=== PATIENT | male | born 1935 | race Caucasian/White ===

== ENCOUNTER 2016-02-28 08:14 | Observation (INO) | payer MEDICARE ==
[2016-02-28] MEDS ORDERED: ASPIRIN 81 MG CHEW PO STA (09:01)
[2016-02-28 09:35] LABS: Basophils # (A) 0.1 k/uL (0-0.2); Basophils % (A) 2 %; CH 31.5; CHCM 34.1; Eosinophils # (A) 0.4 k/uL (0-0.7); Eosinophils % (A) 7 %; HCT 47.7 % (39.0-53.0); HDW 2.46; HGB 15.4 gm/dL (13.0-17.5); Luc % (Auto) 2; Lymphocytes # (A) 0.8 k/uL (1.0-4.8); Lymphocytes % (A) 17 %; MCH 29.9 pg (25.0-35.0); MCHC 32.3 g/dL (31.0-37.0); MCV 92.7 fL (80.0-100.0); Monocytes # (A) 0.3 k/uL (0-1.0); Monocytes % (A) 7 %; Neutrophils # (A) 3.3 k/uL (1.3-7.7); Neutrophils % (A) 66 %; RBC 5.14 m/uL (4.30-5.90); RDW 13.6 % (11.5-15.5); WBC (Perox) 5.22
--- NOTE | 2016-02-28 09:44 | ED ---
Chest Pain HPI - General Chief Complaint: Recheck/Abnormal Lab/Rx Stated Complaint: defib firing Time Seen by Provider: 02/28/16 08:36 Source: patient, RN notes reviewed Mode of arrival: wheelchair Limitations: no limitations - History of Present Illness Initial Comments: This patient is an 80-year-old man who presents with the complaint that his defibrillator has gone off twice this morning. The patient states that he was taking a shower proximally 745 this morning when he felt a shock. The patient initially thought that this may have been related to short circuit in the house but then shortly thereafter he experienced a second shock and was able to localize this to his chest. The patient states that he was not having any other symptoms at the time. He came directly here. He states that he is feeling at his normal self now. MD Complaint: other -: hour(s) Onset: other (showering) Pain Location: left chest Pain Radiation: none Quality: other (Shock) Consistency: now resolved Improves With: nothing Worsens With: nothing Treatments Prior to Arrival: defibrillation - Related Data Home Medications Medication Instructions Recorded Confirmed Nitroglycerin Sl Tabs [Nitrostat] 0.4 mg SUBLINGUAL Q5M PRN 02/12/14 02/28/16 Clopidogrel [Plavix] 75 mg PO QAM 03/29/14 02/28/16 Acetaminophen Tab [Tylenol Tab] 325 mg PO Q4H PRN 02/28/16 02/28/16 Aspirin 81 mg PO DAILY 02/28/16 02/28/16 Captopril [Capoten] 25 mg PO AC-BID 02/28/16 02/28/16 Metoprolol Tartrate [Lopressor] 25 mg PO BID 02/28/16 02/28/16 Vardenafil HCl [Levitra] 20 mg PO DAILY PRN 02/28/16 02/28/16 Previous Rx's Medication Instructions Recorded Atorvastatin [Lipitor] 80 mg PO HS #30 tab 11/20/13 Omeprazole [PriLOSEC] 20 mg PO AC-BRKFST #30 capsule. 11/20/13 Allergies Allergy/AdvReac Type Severity Reaction Status Date / Time amlodipine besylate Allergy Rash/Hives Verified 02/28/16 09:11 [From Norvasc] isosorbide [From Imdur] Allergy Unknown Verified 02/28/16 09:25 Latex, Natural Rubber Allergy Rash/Hives Verified 02/28/16 09:11 Review of Systems ROS Statement: Those systems with pertinent positive or pertinent negative responses have been documented in the HPI. ROS Other: All systems not noted in ROS Statement are negative. Constitutional: Denies: fever, chills, weakness Eyes: Denies: vision change Respiratory: Denies: cough, dyspnea Cardiovascular: Reports: as per HPI. Denies: palpitations, dyspnea on exertion , orthopnea, edema, syncope Gastrointestinal: Reports: constipation. Denies: abdominal pain, vomiting, diarrhea, melena, hematochezia Genitourinary: Denies: dysuria, hematuria Musculoskeletal: Denies: back pain Skin: Denies: rash Neurological: Denies: headache, weakness, numbness EKG Findings - EKG Results: EKG: interpreted by SANTY, sinus rhythm (Rate approximate 67 bpm), normal axis - Blocks, Blue [place], Hypertrophy, ST Abn: Chamber hypertrophy or enlargement: only voltage criteria for left ventricular hypertrophy Repolarization changes or abnormalities: ST or T wave suggestive of ischemia (2 inversions in leads V2 V6 suggestive of possible anterolateral ischemia) - VT, Pacemaker, Normal: Myocardial infarction: septal VT (old age or indeterminate) Past Medical History Past Medical History: GI Bleed, Hyperlipidemia, Myocardial Infarction ([place]), Osteoarthritis (OA), Prostate Disorder, Thyroid Disorder Additional Past Medical History / Comment(s): DENGENERATIVE ARTHRITIS, MACULAR DEGENERATION AND CATARACTS,GI BLEED 2011,CARPAL TUNNEL SYNDROME, SEE DR. BOOGIE H&P Last Myocardial Infarction Date:: 1993 History of Any Multi-Drug Resistant Organisms: None Reported Past Surgical History: Adenoidectomy, Appendectomy, Heart Catheterization, Heart Catheterization With Stent, Joint Replacement, Orthopedic Surgery Additional Past Surgical History / Comment(s): TOTAL LT/RT KNEE ARTHROPLASTY, CATARACTS, PARTIAL THYROIDECTOMY,RT KNEE REPLACEMENT Past Anesthesia/Blood Transfusion Reactions: No Reported Reaction Additional Past Anesthesia/Blood Transfusion Reaction / Comment(s): wakes up during surgery Date of Last Stent Placement:: 1998 Type of Cardiac Device: AICD Device Placement Date:: 2013 Past Psychological History: No Psychological Hx Reported Smoking Status: Former smoker Past Alcohol Use History: None Reported Additional Past Alcohol Use History / Comment(s): QUIT 39 YEARS AGO SMOKED 1PPD X20 YEARS Past Drug Use History: None Reported - Past Family History Father Additional Family Medical History / Comment(s): CAROTID ARTERY BLOCKAGE.SX IN 1988 Mother Additional Family Medical History / Comment(s): AT AGE 89- UNK HX Daughter(s) Family Medical History: Cancer BROTHER Family Medical History: Cancer Additional Family Medical History / Comment(s): BONE, PANCREATIC General Exam Limitations: no limitations General appearance: alert, in no apparent distress Head exam: Present: atraumatic, normocephalic Eye exam: Present: normal appearance. Absent: scleral icterus, conjunctival injection Neck exam: Present: normal inspection Respiratory exam: Present: normal lung sounds bilaterally. Absent: respiratory distress, wheezes, rales, rhonchi, stridor Cardiovascular Exam: Present: regular rate, normal rhythm, normal heart sounds. Absent: systolic murmur, diastolic murmur, rubs, gallop GI/Abdominal exam: Present: soft. Absent: distended, tenderness, guarding, rebound, mass Extremities exam: Present: normal inspection, normal capillary refill. Absent: pedal edema, calf tenderness Back exam: Present: normal inspection. Absent: CVA tenderness (R), CVA tenderness (L) Neurological exam: Present: alert, oriented X3 Skin exam: Present: warm, dry, intact, normal color. Absent: rash, cyanosis, diaphoretic, petechiae, pallor, mottled Course Vital Signs 02/28/16 02/28/16 02/28/16 08:17 09:30 10:28 Temperature 97.3 F L 96.7 F L Pulse Rate 76 58 L 60 Respiratory 20 16 16 Rate Blood Pressure 168/77 163/84 O2 Sat by Pulse 96 98 98 Oximetry Disposition Clinical Impression: Defibrillator discharge Disposition: ADMITTED IP TO THIS HOSP Condition: Fair
--- NOTE | 2016-02-28 09:47 | XR ---
EXAMINATION TYPE: XR chest 1V portable DATE OF EXAM: 02/28/2016 9:32 AM COMPARISON: Prior chest x-ray third of August 2014 HISTORY: Chest pain TECHNIQUE: Single frontal view of the chest is obtained. FINDINGS: The heart is enlarged. Intracardiac defibrillator is stable. No pneumothorax or pleural ef fusion. Lung volumes are low. Patchy basilar density is present. Central vascularity and interstitium mildly prominent. IMPRESSION: Expiratory technique. Difficult to exclude pulmonary venous hypertension and interstitial edema, follow-up as indicated. Stable cardiomegaly.
[2016-02-28 09:51] LABS: ALT 35 U/L (21-72); AST 20 U/L (17-59); Alkaline Phosphatase 106 U/L (38-126); Anion Gap 8 mmol/L; Blood Urea Nitrogen 15 mg/dL (9-20); Calcium 9.6 mg/dL (8.4-10.2); Carbon Dioxide 27 mmol/L (22-30); Chloride 104 mmol/L (98-107); Glucose 107 mg/dL (74-99); Magnesium 1.8 mg/dL (1.6-2.3); Non-African American GFR(MDRD) >60 (>60 ml/min/1.73 sqM); Potassium 4.8 mmol/L (3.5-5.1); Sodium 139 mmol/L (137-145); Total Bilirubin 0.9 mg/dL (0.2-1.3); Total Protein 6.4 g/dL (6.3-8.2)
[2016-02-28 10:12] LABS: Creatine Kinase MB 2.2 ng/mL (0.0-2.4)
[2016-02-28 10:13] LABS: Troponin I 0.094 ng/mL (0.000-0.034)
[2016-02-28 10:32] LABS: INR 1.1 (<1.1); Partial Thromboplastin Time 24.8 sec (22.0-30.0); Prothrombin Time 11.3 sec (9.0-12.0)
[2016-02-28] MEDS ORDERED: HEPARIN SODIUM,PORCINE 5,000 UNIT/ML 1 ML VIAL IV ONE (11:36)
[2016-02-28] MEDS ORDERED: NITROGLYCERIN SL TABS 0.4 MG TAB SUBLINGUAL PRN ×3 (11:36→14:32)
[2016-02-28] MEDS ORDERED: HEPARIN SODIUM,PORCINE/D5W PMX 25,000 UNIT in DEXTROSE/WATER 1 500ML.BAG IV SCH (11:45)
[2016-02-28] MEDS: SODIUM CHLORIDE 0.9% 1,000 ML IV SCH ×2 (13:53→21:34)
[2016-02-28] MEDS ORDERED: ACETAMINOPHEN TAB 325 MG TAB PO PRN (14:32)
--- NOTE | 2016-02-28 14:32 | P.HPIM ---
History of Present Illness H&P Date: 02/28/16 Chief Complaint: ICD discharged twice This is an 80-year-old male one of Dr. Mixon with a previous medical history significant for CAD post the cardiac arrest with ischemic cardiomyopathy post AICD implantation, left heart catheterization with PCI back in 2013, chronic systolic heart failure, peptic ulcer disease, hyperlipidemia, hypothyroidism, osteoarthritis, patient was taken a shower today when all of a sudden he felt a bit dizzy and subsequently his ICD fired first time and it did fire again the second time, patient ended up coming to the emergency department for evaluation, patient ICD was interrogated and it was indeed 2 shocks for V. fib/V. tach the first one failed however the second one did take him out of the rhythm and I believe his ICD parameter was were adjusted from 25 J to 35 J . Patient is laying down in bed in no apparent distress he denies any chest pain, shortness breath, he has no abdominal pain, nausea, vomiting, diarrhea, he feels otherwise good. Review of Systems Constitutional: Denies anorexia, Denies chills, Denies lethargy, Denies malaise , Denies weakness Eyes: bilateral blurred vision, bilateral decreased vision, denies bulging eye Ears: bilateral: decreased hearing Ears, nose, mouth and throat: Denies dysphagia, Denies neck lump, Denies swelling in throat, Denies sore throat Cardiovascular: Reports dyspnea on exertion, Reports high blood pressure, Reports shortness of breath, Denies chest pain, Denies decreased exercise tolerance, Denies paroxysmal nocturnal dyspnea, Denies phlebitis, Denies rapid heart beat, Denies syncope Respiratory: Denies congestion, Denies cough, Denies cough with sputum, Denies home oxygen, Denies respiratory infections, Denies sleep apnea, Denies snoring, Denies wheezing Gastrointestinal: Denies abdominal pain, Denies belching, Denies bloating, Denies change in bowel habits, Denies excessive gas, Denies heartburn, Denies melena, Denies nausea, Denies vomiting Genitourinary: Denies dysuria, Denies nocturia, Denies polyuria Musculoskeletal: Denies myalgias Musculoskeletal: absent: ankle pain, ankle stiffness, ankle swelling, elbow pain , elbow stiffness, elbow swelling, foot pain, foot stiffness, foot swelling, hand pain, hand stiffness, hand swelling, hip pain, hip stiffness, hip swelling , knee pain, knee stiffness, knee swelling, shoulder pain, shoulder stiffness, shoulder swelling, wrist pain, wrist stiffness, wrist swelling Integumentary: Denies pruritus, Denies rash Neurological: Denies numbness, Denies weakness Psychiatric: Denies anxiety, Denies depression Endocrine: Denies fatigue, Denies weight change Past Medical History Past Medical History: Coronary Artery Disease (CAD), Heart Failure, Eye Disorder (Adult onset macular degeneration.), GERD/Reflux, GI Bleed (Secondary to peptic ulcer disease.), Hyperlipidemia, Hypertension, Myocardial Infarction ( [place]), Osteoarthritis (OA), Prostate Disorder, Thyroid Disorder Additional Past Medical History / Comment(s): cardiomyopathy, DENGENERATIVE ARTHRITIS, MACULAR DEGENERATION AND CATARACTS,GI BLEED 2011, Last Myocardial Infarction Date:: 1993 History of Any Multi-Drug Resistant Organisms: None Reported Past Surgical History: Adenoidectomy, AICD, Appendectomy, Heart Catheterization , Heart Catheterization With Stent, Joint Replacement, Orthopedic Surgery, Tonsillectomy Additional Past Surgical History / Comment(s): AICD, DFT 04/02/14, TOTAL LT/RT KNEE ARTHROPLASTY, bilateral CATARACTS, bilateral carpal tunnel releases, PARTIAL THYROIDECTOMY due to nodules, trigger fingers. Past Anesthesia/Blood Transfusion Reactions: No Reported Reaction Additional Past Anesthesia/Blood Transfusion Reaction / Comment(s): wakes up during surgery Date of Last Stent Placement:: 1993 Type of Cardiac Device: AICD Device Placement Date:: 2013 Past Psychological History: No Psychological Hx Reported Additional Psychological History / Comment(s): Pt has a grand daughter who resides with him. He uses no assistive device. He no longer drives, grand daughter takes him places. Smoking Status: Former smoker Past Alcohol Use History: None Reported Additional Past Alcohol Use History / Comment(s): QUIT 39 YEARS AGO SMOKED 1PPD X20 YEARS Past Drug Use History: None Reported - Past Family History Father Family Medical History: Cancer, Coronary Artery Disease (CAD), CVA/TIA (Father at age of 86 from CVA, diabetes mellitus type 2, colon cancer and CAD.), Diabetes Mellitus Additional Family Medical History / Comment(s): CAROTID ARTERY BLOCKAGE.SX IN 1988 Mother Family Medical History: Unable to Obtain (Mother at age of 90 from old age. ) Additional Family Medical History / Comment(s): AT AGE 89- UNK HX Daughter(s) Family Medical History: Cancer (Patient has 2 adopted daughters and he has been under a lot of stress with his adopted daughter whom her left taking her cars with him.) BROTHER Family Medical History: Cancer (Patient had a brother who from pancreatic and bone cancer.) Additional Family Medical History / Comment(s): BONE, PANCREATIC Son(s) Family Medical History: No Reported History (Patient has a son no major medical problems.) Medications and Allergies Home Medications Medication Instructions Recorded Confirmed Type Nitroglycerin Sl Tabs [Nitrostat] 0.4 mg SUBLINGUAL Q5M PRN 02/12/14 02/28/16 History Clopidogrel [Plavix] 75 mg PO QAM 03/29/14 02/28/16 History Acetaminophen Tab [Tylenol Tab] 325 mg PO Q4H PRN 02/28/16 02/28/16 History Aspirin 81 mg PO DAILY 02/28/16 02/28/16 History Captopril [Capoten] 25 mg PO AC-BID 02/28/16 02/28/16 History Metoprolol Tartrate [Lopressor] 25 mg PO BID 02/28/16 02/28/16 History Vardenafil HCl [Levitra] 20 mg PO DAILY PRN 02/28/16 02/28/16 History Allergies Allergy/AdvReac Type Severity Reaction Status Date / Time amlodipine besylate Allergy Rash/Hives Verified 02/28/16 09:11 [From Norvasc] isosorbide [From Imdur] Allergy Unknown Verified 02/28/16 09:25 Latex, Natural Rubber Allergy Rash/Hives Verified 02/28/16 09:11 Physical Exam Vitals: Vital Signs Temp Pulse Pulse Resp BP BP Pulse Ox 02/28/16 12:18 97.0 F L 80 16 142/78 98 02/28/16 12:17 97.9 F 02/28/16 11:42 66 16 141/78 97 - Constitutional General appearance: average body habitus, no acute distress - EENT Eyes: anicteric sclerae, PERRLA, no ptosis, no scleral icterus, normal appearance ENT: hard of hearing, normal oropharynx, no thrush Ears: bilateral: normal - Neck Neck: no lymphadenopathy, normal ROM, no rigidity, no stridor, no thyromegaly Carotids: bilateral: upstroke delayed Thyroid: bilateral: normal size (Patient had a partial thyroidectomy.) - Respiratory Respiratory: bilateral: diminished, negative: dullness, rales, rhonchi, wheezing , prolonged expiration - Cardiovascular Rhythm: regular Heart sounds: normal: S1, S2 Abnormal Heart Sounds: systolic murmur, no S3 Gallop, no S4 Gallop - Gastrointestinal General gastrointestinal: normal bowel sounds, soft, no splenomegaly, no tenderness, no umbilical hernia, no ventral hernia - Genitourinary Male genitourinary: enlarged prostate - Integumentary Integumentary: normal, normal turgor - Neurologic Neurologic: CNII-XII intact - Musculoskeletal Musculoskeletal: gait normal, strength equal bilaterally - Psychiatric Psychiatric: A&O x's 3, appropriate affect, intact judgment & insight Results CBC & Chem 7: 02/28/16 09:25 02/28/16 09:25 Thrombosis Risk Factor Assmnt - DVT/VTE Prophylaxis DVT/VTE Prophylaxis: Pharmacologic Prophylaxis ordered, Mechanical Prophylaxis ordered - Choose All That Apply Any of the Below Risk Factors Present?: Yes Each Factor Represents 1 point: Obesity (BMI >25) Other Risk Factors: Yes Each Risk Factor Represents 3 Points: Age 75 years or older Other congenital or acquired thrombophilia - If yes, enter type in comment: No Thrombosis Risk Factor Assessment Total Risk Factor Score: 4 Thrombosis Risk Factor Assessment Level: Moderate Risk Assessment and Plan Plan: Assessment and plan: 1. V. fib/V. tach post discharges twice the first shock failed so he had another shock, subsequent AICD was interrogated and adjusted from 25 to 35 J. Continue patient in a telemetry unit monitor for the next 24 hours. 2. CAD post [place] with cardiac arrest status post PCI back in 2013. Continue metoprolol 25 mg orally twice every day, Capoten 25 mg orally twice every day, aspirin 81 mg orally once every day, Plavix 75 mg orally once every day. 3. Hyperlipidemia. Continue patient on low-cholesterol diet. 4. Hypertension. Continue metoprolol 25 mg orally twice every day, Capoten 25 minute gram orally twice every day. 5. Post partial thyroidectomy. 6. AMD. Stable at this point in time. 7. History of PUD. Continue Protonix 40 mg orally once every day. 8. Osteoarthritis. Stable. 9. Ischemic cardiomyopathy. Stable at this time. 10. DVT prophylaxis. Lovenox 40 mg subcutaneously every 24 hours. 11. GI prophylaxis. Protonix 40 mg orally once every day. 12. Admit to inpatient. 13. Estimate length of stay 2 midnights.
[2016-02-28] MEDS ORDERED: DEXTROSE 5% IN WATER 100 ML with AMIODARONE 150 MG IV ONE (16:09)
[2016-02-28] MEDS ORDERED: Magnesium Replacement Protocol 1 EACH MISC MISCELLANE PRN (16:10)
--- NOTE | 2016-02-28 16:11 | P.CRDCN ---
History of Present Illness Consult date: 02/28/16 Reason for Consult (text): ICD Discharge Chief complaint: Shock from ICD x2 History of present illness: This is a pleasant 80-year-old gentleman who follows regularly with Dr. Kearns in the office. Has a known history of GI bleed, hyperlipidemia, [place], thyroid disorder, ischemic cardiomyopathy post-AICD placement, chronic systolic heart failure, and CAD with prior cardiac arrest and heart catheterization with DCI in 2013. Patient presented to the emergency department today after while taking a shower receiving multiple shocks from his ICD. Initially the patient felt this may have been an electrical issue but after receiving the second shock realized it was from his ICD. ICD was interrogated and showed appropriate shock for fast V. tach at 25 J that was unsuccessful and again at 35 J. Interrogation also showed patient had 22 episodes of nonsustained VT since last interrogation in September 2015. Chest x-ray done on admission was difficult to exclude pulmonary venous hypertension and interstitial edema and recommends follow-up. EKG showed sinus rhythm with nonspecific ST-T wave abnormalities. His most recent echocardiogram done in August 2015 showed an ejection fraction of 35% with diminished left ventricular diastolic compliance. Lexiscan Cardiolite from August 2015 showed no evidence of stress-induced ischemia. Upon examination, patient is resting comfortably in bed. He denies complaint of chest discomfort, shortness of breath, palpitations, nausea or vomiting, dizziness, lightheadedness, syncope or edema. He said up until this morning, he has been feeling "great". He has however been under quite a bit of stress as he has his grandchildren and great-grandchildren living with him and is causing some issues with his usual routine. Past Medical History Past Medical History: Coronary Artery Disease (CAD), Heart Failure, Eye Disorder (Adult onset macular degeneration.), GERD/Reflux, GI Bleed (Secondary to peptic ulcer disease.), Hyperlipidemia, Hypertension, Myocardial Infarction ( [place]), Osteoarthritis (OA), Prostate Disorder, Thyroid Disorder Additional Past Medical History / Comment(s): cardiomyopathy, DENGENERATIVE ARTHRITIS, MACULAR DEGENERATION AND CATARACTS,GI BLEED 2011, Last Myocardial Infarction Date:: 1993 History of Any Multi-Drug Resistant Organisms: None Reported Past Surgical History: Adenoidectomy, AICD, Appendectomy, Heart Catheterization , Heart Catheterization With Stent, Joint Replacement, Orthopedic Surgery, Tonsillectomy Additional Past Surgical History / Comment(s): AICD, DFT 04/02/14, TOTAL LT/RT KNEE ARTHROPLASTY, bilateral CATARACTS, bilateral carpal tunnel releases, PARTIAL THYROIDECTOMY due to nodules, trigger fingers. Past Anesthesia/Blood Transfusion Reactions: No Reported Reaction Additional Past Anesthesia/Blood Transfusion Reaction / Comment(s): wakes up during surgery Date of Last Stent Placement:: 1993 Type of Cardiac Device: AICD Device Placement Date:: 2013 Past Psychological History: No Psychological Hx Reported Additional Psychological History / Comment(s): Pt has a grand daughter who resides with him. He uses no assistive device. He no longer drives, grand daughter takes him places. Smoking Status: Former smoker Past Alcohol Use History: None Reported Additional Past Alcohol Use History / Comment(s): QUIT 39 YEARS AGO SMOKED 1PPD X20 YEARS Past Drug Use History: None Reported - Past Family History Son(s) Family Medical History: No Reported History (Patient has a son no major medical problems.) Father Family Medical History: Cancer, Coronary Artery Disease (CAD), CVA/TIA (Father at age of 86 from CVA, diabetes mellitus type 2, colon cancer and CAD.), Diabetes Mellitus Additional Family Medical History / Comment(s): CAROTID ARTERY BLOCKAGE.SX IN 1988 Mother Family Medical History: Unable to Obtain (Mother at age of 90 from old age. ) Additional Family Medical History / Comment(s): AT AGE 89- UNK HX Daughter(s) Family Medical History: Cancer (Patient has 2 adopted daughters and he has been under a lot of stress with his adopted daughter whom her left taking her cars with him.) BROTHER Family Medical History: Cancer (Patient had a brother who from pancreatic and bone cancer.) Additional Family Medical History / Comment(s): BONE, PANCREATIC Medications and Allergies Home Medications Medication Instructions Recorded Confirmed Type Nitroglycerin Sl Tabs [Nitrostat] 0.4 mg SUBLINGUAL Q5M PRN 02/12/14 02/28/16 History Clopidogrel [Plavix] 75 mg PO QAM 03/29/14 02/28/16 History Acetaminophen Tab [Tylenol Tab] 325 mg PO Q4H PRN 02/28/16 02/28/16 History Aspirin 81 mg PO DAILY 02/28/16 02/28/16 History Captopril [Capoten] 25 mg PO AC-BID 02/28/16 02/28/16 History Metoprolol Tartrate [Lopressor] 25 mg PO BID 02/28/16 02/28/16 History Vardenafil HCl [Levitra] 20 mg PO DAILY PRN 02/28/16 02/28/16 History Allergies Allergy/AdvReac Type Severity Reaction Status Date / Time amlodipine besylate Allergy Rash/Hives Verified 02/28/16 09:11 [From Norvasc] isosorbide [From Imdur] Allergy Unknown Verified 02/28/16 09:25 Latex, Natural Rubber Allergy Rash/Hives Verified 02/28/16 09:11 Physical Exam Vitals: Vital Signs Temp Pulse Pulse Resp BP BP Pulse Ox 02/28/16 12:18 97.0 F L 80 16 142/78 98 02/28/16 12:17 97.9 F 02/28/16 11:42 66 16 141/78 97 PHYSICAL EXAMINATION: HEENT: Head is atraumatic, normocephalic. Pupils equal, round. Neck is supple. There is no elevated jugular venous pressure. HEART EXAMINATION: Heart sounds regular, S1 and S2 systolic ejection murmur heard. CHEST EXAMINATION: Lungs are clear to auscultation and precussion. No chest wall tenderness is noted on palpation or with deep breathing. ABDOMEN: Soft, nontender. Bowel sounds are heard. No organomegaly noted. EXTREMITIES: 1+ peripheral pulses with no evidence of peripheral edema and no calf tenderness noted. NEUROLOGIC patient is awake, alert and oriented x3. . Results 02/28/16 09:25 02/28/16 09:25 Current Medications Generic Name Dose Route Start Last Admin Trade Name Freq PRN Reason Stop Dose Admin Acetaminophen 325 mg 02/28/16 14:32 Tylenol Tab PO Q4H PRN Pain or Fever > 100.5 Aspirin 81 mg 02/29/16 09:00 Aspirin PO DAILY [facility] Atorvastatin Calcium 80 mg 02/28/16 21:00 Lipitor PO HS JONO Captopril 25 mg 02/28/16 17:30 Capoten PO AC-BID JONO Clopidogrel Bisulfate 75 mg 02/29/16 09:00 Plavix PO QAM [facility] Heparin Sodium/Dextrose 25,000 500 mls @ 19.88 mls/hr 02/28/16 11:45 13:53 unit/ IV Solution IV 10.8 units/kg/hr .Q24H JONO 19.88 mls/hr Protocol Administration 10.8 UNITS/KG/HR Sodium Chloride 1,000 mls @ 100 mls/hr 02/28/16 11:45 02/28/16 13:53 Saline 0.9% IV 100 mls/hr .Q10H JONO Administration Metoprolol Tartrate 25 mg 02/28/16 21:00 Lopressor PO BID JONO Nitroglycerin 0.4 mg 02/28/16 14:32 Nitrostat SUBLINGUAL Q5M PRN Chest Pain Pantoprazole Sodium 40 mg 02/29/16 07:30 Protonix PO AC-BRKFST JONO Assessment and Plan Plan: Assessment and plan #1 ischemic cardiomyopathy with AICD in place #2 ventricular tachycardia with appropriate ICD discharge 2 #3 chronic systolic heart failure #4 CAD with PCI in 2013 #5 hypertension #6 hyperlipidemia From cardiology perspective, we'll start the patient on amiodarone drip per protocol with bolus. We will replace magnesium and recheck magnesium and electrolytes in the morning. Further recommendations to follow. 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 Patient was seen and examined.
[2016-02-28 16:15] LABS: Creatine Kinase MB 3.1 ng/mL (0.0-2.4)
[2016-02-28 16:16] LABS: Troponin I 0.379 ng/mL (0.000-0.034)
[2016-02-28] MEDS: AMIODARONE 450 MG in DEXTROSE 5% IN WATER 250 ML IV SCH ×4 (16:54→23:32)
[2016-02-28] MEDS: CAPTOPRIL 25 MG TAB PO SCH (16:58)
[2016-02-28] MEDS ORDERED: CAPTOPRIL 25 MG TAB PO SCH (17:30)
[2016-02-28] MEDS: MAGNESIUM SULFATE-D5W PMX 1 GM in DEXTROSE/WATER 1 100ML.BAG IVPB SCH ×2 (18:39→20:24)
[2016-02-28] MEDS ORDERED: METOPROLOL TARTRATE 25 MG TAB PO SCH (21:00)
[2016-02-28] MEDS ORDERED: ATORVASTATIN 80 MG TAB PO SCH ×2 (21:00)
[2016-02-28] MEDS: METOPROLOL TARTRATE 25 MG TAB PO SCH (21:21)
[2016-02-28 21:23] LABS: Troponin I 0.272 ng/mL (0.000-0.034)
[2016-02-29] MEDS: CAPTOPRIL 25 MG TAB PO SCH (06:35)
[2016-02-29] MEDS: AMIODARONE 450 MG in DEXTROSE 5% IN WATER 250 ML IV SCH ×2 (06:35)
[2016-02-29] MEDS: SODIUM CHLORIDE 0.9% 1,000 ML IV SCH (06:36)
[2016-02-29] MEDS ORDERED: PANTOPRAZOLE 40 MG TABLET PO SCH (07:30)
[2016-02-29] MEDS ORDERED: NON-FORMULARY DRUG (Omeprazole 20 MG) PO SCH (07:30)
[2016-02-29 07:45] LABS: Magnesium 2.2 mg/dL (1.6-2.3)
[2016-02-29] MEDS: METOPROLOL TARTRATE 25 MG TAB PO SCH (08:31)
[2016-02-29 08:49] VITALS: TEMP 97.1
[2016-02-29] MEDS ORDERED: CLOPIDOGREL 75 MG TAB PO SCH ×2 (09:00)
[2016-02-29] MEDS ORDERED: ASPIRIN 325 MG TAB PO SCH (09:00)
[2016-02-29] MEDS ORDERED: ASPIRIN 81 MG CHEW PO SCH ×2 (09:00)
--- NOTE | 2016-02-29 10:22 | P.PN ---
Subjective Principal diagnosis: Sustained VT This is a pleasant 80-year-old gentleman with a past medical history significant for CAD, ischemic cardiomyopathy, status post ICD, hypertension and dyslipidemia was admitted to the hospital after he was receiving ICD shocks. The ICD was checked and showed multiple episodes of sustained VT which was aborted using 35 J. The patient was admitted to the hospital and started on amiodarone IV. Since he has been in the hospital he did not experience any more episodes of VT. He is feeding good and denies having any chest pain or chest discomfort. From the cardiac vascular standpoint overview, the patient can be discharged home. I am going to DC the amiodarone IV and start the patient on amiodarone by mouth. Objective - Vital Signs Vital signs: Vital Signs Temp 97.1 F L 02/29/16 08:00 Pulse 59 L 02/29/16 08:00 Resp 17 02/29/16 08:00 BP 133/72 02/29/16 08:00 Pulse Ox 94 L 02/29/16 08:00 Intake & Output 02/28/16 02/29/16 02/29/16 18:59 06:59 18:59 Intake Total 236 559.482 550.762 Balance 236 559.482 550.762 Weight 91.6 kg Intake: IV 208.82 Amiodarone 450 mg In 69.06 Dextrose 5% in Water 250 ml @ 1 MG/MIN 34.53 mls/ hr IV .Q7H31M JONO Rx#: [id number] Heparin Sodium,Porcine/ 39.76 D5w Pmx 25,000 unit In Dextrose/Water 1 500ml. bag @ 10.8 UNITS/KG/HR 19 .88 mls/hr IV .Q24H JONO Rx#:[id number] Magnesium Sulfate-D5w Pmx 100 1 gm In Dextrose/Water 1 100ml.bag @ 100 mls/hr IVPB Q1H JONO Rx#: [id number] Intake, IV Titration 350.662 370.762 Amount Amiodarone 450 mg In 350.662 Dextrose 5% in Water 250 ml @ 1 MG/MIN 34.53 mls/ hr IV .Q7H31M JONO Rx#: [id number] Heparin Sodium,Porcine/ 370.762 D5w Pmx 25,000 unit In Dextrose/Water 1 500ml. bag @ 10.8 UNITS/KG/HR 19 .88 mls/hr IV .Q24H JONO Rx#:[id number] Oral 236 180 Other: # Voids 1 - Constitutional General appearance: Present: no acute distress - Respiratory Respiratory: bilateral: CTA - Cardiovascular Rhythm: regular Heart sounds: normal: S1, S2 - Labs CBC & Chem 7: 02/28/16 09:25 02/28/16 09:25 Labs: Abnormal Lab Results - Last 24 Hours (Table) 02/28/16 02/28/16 02/28/16 Range/Units 15:16 20:30 20:30 APTT 72.2 H (22.0-30.0) sec CK-MB (CK-2) 3.1 H* 3.0 H* (0.0-2.4) ng/mL Troponin I 0.379 H* 0.272 H* (0.000-0.034) ng/mL 02/29/16 Range/Units 06:19 APTT 67.9 H (22.0-30.0) sec CK-MB (CK-2) (0.0-2.4) ng/mL Troponin I (0.000-0.034) ng/mL Assessment and Plan Plan: Assessment #1 sustained VT #2 severe cardiomyopathy #3 CAD Plan #1 DC amiodarone IV and start amiodarone by mouth at 400 mg by mouth twice a day #2 from the cardiovascular standpoint of view, the patient can be discharged home
[2016-02-29 12:01] VITALS: RESP 18
[2016-02-29 15:12] VITALS: BP 145/83; PULSE 58
[2016-02-29] MEDS ORDERED: AMIODARONE 200 MG TAB PO SCH (21:00)
--- NOTE | 2016-03-23 11:35 | P.DS ---
Providers Date of admission: 02/28/16 11:37 Expected date of discharge: 02/29/16 Attending physician: Oskar Rowland Primary care physician: Kofi Mixon [facility] Hospital Course: This is an 80-year-old male one of Dr. Mixon with a previous medical history significant for CAD post the cardiac arrest with ischemic cardiomyopathy post AICD implantation, left heart catheterization with PCI back in 2013, chronic systolic heart failure, peptic ulcer disease, hyperlipidemia, hypothyroidism, osteoarthritis, patient was taken a shower today when all of a sudden he felt a bit dizzy and subsequently his ICD fired first time and it did fire again the second time, patient ended up coming to the emergency department for evaluation, patient ICD was interrogated and it was indeed 2 shocks for V. fib/V. tach the first one failed however the second one did take him out of the rhythm and I believe his ICD parameter was were adjusted from 25 J to 35 J . Patient is laying down in bed in no apparent distress he denies any chest pain, shortness breath, he has no abdominal pain, nausea, vomiting, diarrhea, he feels otherwise good. Patient was cleared by cardiology for discharge home. Patient was discharged home today in stable condition. Discharge diagnoses: 1. V. fib/V. tach post discharges twice the first shock failed so he had another shock, subsequent AICD was interrogated and adjusted from 25 to 35 J. 2. CAD post LA with cardiac arrest status post PCI back in 2013. 3. Hyperlipidemia. 4. Hypertension. 5. Post partial thyroidectomy. 6. AMD. 7. History of PUD. 8. Osteoarthritis. 9. Ischemic cardiomyopathy Discharge plan: Home Impression and plan of care have been directed as dictated by the signing physician. Robyn Lopez nurse practitioner acting as scribe for signing physician. Cc: Dr. Kofi Mixon Patient Condition at Discharge: Good Plan - Discharge Summary New Discharge Prescriptions: Amiodarone [Cordarone] 400 mg PO BID #45 tab Discharge Medication List Atorvastatin [Lipitor] 80 mg PO HS #30 tab 11/20/13 [Rx] Omeprazole [PriLOSEC] 20 mg PO JOSH-BRKFST #30 capsule. 11/20/13 [Rx] Nitroglycerin Sl Tabs [Nitrostat] 0.4 mg SUBLINGUAL Q5M PRN 02/12/14 [History] Clopidogrel [Plavix] 75 mg PO QAM 03/29/14 [History] Acetaminophen Tab [Tylenol Tab] 325 mg PO Q4H PRN 02/28/16 [History] Aspirin 81 mg PO DAILY 02/28/16 [History] Captopril [Capoten] 25 mg PO AC-BID 02/28/16 [History] Metoprolol Tartrate [Lopressor] 25 mg PO BID 02/28/16 [History] Vardenafil HCl [Levitra] 20 mg PO DAILY PRN 02/28/16 [History] Amiodarone [Cordarone] 400 mg PO BID #45 tab 02/29/16 [Rx] Follow up Appointment(s)/Referral(s): Kofi Mixon MD [Primary Care Provider] - 1-2 days Benji Kearns MD [STAFF PHYSICIAN] - 1 Week (as scheduled on 03/10) Discharge Disposition: HOME SELF-CARE
== END 2016-02-29 15:39 | disposition home or self-care (01) ==
LOC: EC 08:14 → 6SEL 11:37
PROVIDERS: ADMIT Internal Medicine; ATTEND Internal Medicine
DX: I25.5 Ischemic cardiomyopathy (principal); I49.01 Ventricular fibrillation; I47.2 Ventricular tachycardia; I25.10 Atherosclerotic heart disease of native coronary artery without angina pectoris; E78.5 Hyperlipidemia, unspecified; I10 Essential (primary) hypertension; I50.22 Chronic systolic (congestive) heart failure; E03.9 Hypothyroidism, unspecified; H35.30 Unspecified macular degeneration; I25.2 Old myocardial infarction; K21.9 Gastro-esophageal reflux disease without esophagitis; M19.90 Unspecified osteoarthritis, unspecified site; Z79.02 Long term (current) use of antithrombotics/antiplatelets; Z79.82 Long term (current) use of aspirin; Z80.0 Family history of malignant neoplasm of digestive organs; Z82.3 Family history of stroke; Z82.49 Family history of ischemic heart disease and other diseases of the circulatory system; Z86.74 Personal history of sudden cardiac arrest; Z87.11 Personal history of peptic ulcer disease; Z87.891 Personal history of nicotine dependence; Z95.810 Presence of automatic (implantable) cardiac defibrillator; Z98.61 Coronary angioplasty status
CPT/HCPCS: 36415; 80061; 80053; 82550; 82553; 93005; 83735 ×2; 84484; 85025; 85610; 85730 ×2; 71010; 99285; G0378 ×2; J1644 ×2; J0282 ×3; J3475; 96361; 96365; 96366; 96367; 96376

== ENCOUNTER → 2016-03-04 | Outpatient (CLI) | payer MEDICARE ==
[2016-03-04 11:48] LABS: ALT 38 U/L (21-72); AST 25 U/L (17-59); Alkaline Phosphatase 118 U/L (38-126); Anion Gap 9 mmol/L; Blood Urea Nitrogen 16 mg/dL (9-20); Calcium 9.6 mg/dL (8.4-10.2); Carbon Dioxide 26 mmol/L (22-30); Chloride 105 mmol/L (98-107); Cholesterol 131 mg/dL (<200); Glucose 101 mg/dL (74-99); HDL Cholesterol 49 mg/dL (40-60); Non-African American GFR(MDRD) >60 (>60 ml/min/1.73 sqM); Potassium 4.7 mmol/L (3.5-5.1); Sodium 140 mmol/L (137-145); Total Bilirubin 0.7 mg/dL (0.2-1.3); Total Protein 6.7 g/dL (6.3-8.2); Triglycerides 93 mg/dL (<150)
== END | disposition home or self-care (01) ==
LOC: LABWHC1 10:33
PROVIDERS: ATTEND Internal Medicine Interventional Cardiology
DX: E78.2 Mixed hyperlipidemia (principal)
CPT/HCPCS: 36415; 80053; 80061

== ENCOUNTER → 2016-06-26 | Outpatient (CLI) | payer MEDICARE ==
--- NOTE | 2016-06-26 16:44 | XR ---
EXAMINATION TYPE: XR thoracic spine 2V DATE OF EXAM ORDERED: 06/26/2016 4:07 PM HISTORY: M99.02 Segmental and somatic dysfunction of thoracic region. COMPARISON: None. FINDINGS: There is mild wedging of the several of the midthoracic vertebra as well as the T12 verteb ra. Alignment remains normal. A sclerotic focus projects over the T9 vertebral body posteriorly. Ther e is hypertrophic spondylosis throughout the spine. The pedicles appear intact. IMPRESSION: 1. SCLEROTIC FOCUS PROJECTING OVER THE T9 VERTEBRAL BODY MAY BE WITHIN THE LUNGS OR WITHIN THE VERTEB RAL ITSELF. A CT SCAN OF THE CHEST WOULD BE SUGGESTED. 2. DEGENERATIVE CHANGE.
--- NOTE | 2016-06-26 17:04 | XR ---
EXAMINATION TYPE: XR pelvis AP view DATE OF EXAM ORDERED: 06/26/2016 4:07 PM HISTORY: M99.03 Segmental and somatic dysfunction of lumbar region. COMPARISON: None. FINDINGS: There is joint space loss worse on the left than the right. Both femoral heads are nonsphe rical. There are "bumps" on the femoral necks. No acute fracture or dislocation is seen. There are ph leboliths in the pelvis. There is vascular calcification. IMPRESSION: FINDINGS CONSISTENT WITH FEMOROACETABULAR IMPINGEMENT SYNDROME BILATERALLY WITH SECONDARY DEGENERATIV E CHANGE WORSE ON THE LEFT THAN THE RIGHT.
--- NOTE | 2016-06-27 07:15 | XR ---
EXAMINATION TYPE: XR cervical spine limited DATE OF EXAM: 06/26/2016 4:07 PM CLINICAL HISTORY: pain TECHNIQUE: 3 views of the cervical spine are submitted. COMPARISON: None. FINDINGS: There is satisfactory in alignment without evidence of acute fracture or dislocation. The pre-vertebral soft tissue appears within normal limits. Moderate to severe degenerative disc space n arrowing at C3-4 through C6-7 greatest at C5-6 and C6-7. Ventral and dorsal spondylosis. Degenerative change cervical apophyseal joints. Calcifications posterior longitudinal ligament. The C1-C2 articul ation is unremarkable on the open mouth view. IMPRESSION: No acute fracture or dislocation is seen in the cervical spine.
== END | disposition home or self-care (01) ==
LOC: RADXRMAIN 15:38
PROVIDERS: ATTEND Chiropractor
DX: M47.814 Spondylosis without myelopathy or radiculopathy, thoracic region (principal); M25.852 Other specified joint disorders, left hip; M25.851 Other specified joint disorders, right hip; M99.01 Segmental and somatic dysfunction of cervical region
CPT/HCPCS: 72040; 72070; 72170

== ENCOUNTER → 2016-07-15 | Outpatient (CLI) | payer MEDICARE ==
[2016-07-15 09:01] LABS: ALT 24 U/L (21-72); AST 19 U/L (17-59); Alkaline Phosphatase 141 U/L (38-126); Anion Gap 7 mmol/L; Blood Urea Nitrogen 18 mg/dL (9-20); Calcium 9.4 mg/dL (8.4-10.2); Carbon Dioxide 24 mmol/L (22-30); Chloride 98 mmol/L (98-107); Cholesterol 138 mg/dL (<200); Glucose 106 mg/dL (74-99); HDL Cholesterol 43 mg/dL (40-60); Non-African American GFR(MDRD) >60 (>60 ml/min/1.73 sqM); Potassium 5.4 mmol/L (3.5-5.1); Sodium 129 mmol/L (137-145); Total Bilirubin 0.7 mg/dL (0.2-1.3); Total Protein 6.8 g/dL (6.3-8.2); Triglycerides 156 mg/dL (<150)
== END | disposition home or self-care (01) ==
LOC: LABWHC1 08:14
PROVIDERS: ATTEND Internal Medicine Interventional Cardiology
DX: E78.2 Mixed hyperlipidemia (principal); I47.2 Ventricular tachycardia
CPT/HCPCS: 36415; 80053; 80061; 84443

== ENCOUNTER 2016-11-24 09:39 | Emergency (ER) | payer MEDICARE ==
[2016-11-24] MEDS ORDERED: DIPH,PERTUS(ACELL)TETVAC-LF 0.5 ML VIAL IM ONE (10:17)
--- NOTE | 2016-11-24 10:29 | ED ---
General Adult HPI - General Chief complaint: Fall Stated complaint: Fall, Facial Injury Time Seen by Provider: 11/24/16 10:12 Source: patient, RN notes reviewed Mode of arrival: wheelchair Limitations: physical limitation - History of Present Illness Initial comments: Patient 81-year-old male who presents emergency room today with a chief complaint of fall occurred just prior to arrival. He does not that he was leaving the hospital after having his blood drawn. He states that he tripped on something across the street falling down in front of his face. He does admit that there is no loss conscious. Does admit to a laceration to the upper lip. Admits that he feels some pain over the teeth 6 through 10. Patient denies any other complaints at this time. Patient does admit that he is on a blood thinner. Patient unaware of last tetanus shot. Patient denies any recent fever, chills, shortness of breath, chest pain, back pain, abdominal pain, nausea or vomiting, numbness or tingling, dysuria or hematuria, constipation or diarrhea, headaches or visual changes, or any other complaints. - Related Data Home Medications Medication Instructions Recorded Confirmed Nitroglycerin Sl Tabs [Nitrostat] 0.4 mg SUBLINGUAL Q5M PRN 02/12/14 11/24/16 Clopidogrel [Plavix] 75 mg PO QAM 03/29/14 11/24/16 Metoprolol Tartrate [Lopressor] 25 mg PO BID 02/28/16 11/24/16 Amiodarone [Cordarone] 200 mg PO DAILY 11/24/16 11/24/16 Aspirin 325 mg PO DAILY 11/24/16 11/24/16 Fenofibrate Nanocrystallized 145 mg PO DAILY 11/24/16 11/24/16 [Fenofibrate] Lisinopril [Zestril] 5 mg PO BID 11/24/16 11/24/16 Previous Rx's Medication Instructions Recorded Atorvastatin [Lipitor] 80 mg PO HS #30 tab 11/20/13 Omeprazole [PriLOSEC] 20 mg PO AC-BRKFST #30 capsule. 11/20/13 Amoxicillin/Potassium Clav 1 each PO Q12HR #20 tab 11/24/16 [Augmentin 875-125 Tablet] Allergies Allergy/AdvReac Type Severity Reaction Status Date / Time amlodipine besylate Allergy Rash/Hives Verified 11/24/16 10:06 [From Norvasc] isosorbide [From Imdur] Allergy Unknown Verified 11/24/16 10:06 Latex, Natural Rubber Allergy Rash/Hives Verified 11/24/16 10:06 Review of Systems ROS Statement: Those systems with pertinent positive or pertinent negative responses have been documented in the HPI. ROS Other: All systems not noted in ROS Statement are negative. Past Medical History Past Medical History: Coronary Artery Disease (CAD), Heart Failure, Eye Disorder , GERD/Reflux, GI Bleed, Hyperlipidemia, Hypertension, Myocardial Infarction ([place] ), Osteoarthritis (OA), Prostate Disorder, Thyroid Disorder Additional Past Medical History / Comment(s): cardiomyopathy, DENGENERATIVE ARTHRITIS, MACULAR DEGENERATION AND CATARACTS,GI BLEED 2011, Last Myocardial Infarction Date:: 1993 History of Any Multi-Drug Resistant Organisms: None Reported Past Surgical History: Adenoidectomy, AICD, Appendectomy, Heart Catheterization , Heart Catheterization With Stent, Joint Replacement, Orthopedic Surgery, Tonsillectomy Additional Past Surgical History / Comment(s): AICD, DFT 04/02/14, TOTAL LT/RT KNEE ARTHROPLASTY, bilateral CATARACTS, bilateral carpal tunnel releases, PARTIAL THYROIDECTOMY due to nodules, trigger fingers. Past Anesthesia/Blood Transfusion Reactions: No Reported Reaction Additional Past Anesthesia/Blood Transfusion Reaction / Comment(s): wakes up during surgery Date of Last Stent Placement:: 1993 Type of Cardiac Device: AICD Device Placement Date:: 2013 Past Psychological History: No Psychological Hx Reported Smoking Status: Former smoker Past Alcohol Use History: None Reported Past Drug Use History: None Reported - Past Family History Son(s) Family Medical History: No Reported History (Patient has a son no major medical problems.) Father Family Medical History: Cancer, Coronary Artery Disease (CAD), CVA/TIA (Father at age of 86 from CVA, diabetes mellitus type 2, colon cancer and CAD.), Diabetes Mellitus Additional Family Medical History / Comment(s): CAROTID ARTERY BLOCKAGE.SX IN 1988 Mother Family Medical History: Unable to Obtain (Mother at age of 90 from old age. ) Additional Family Medical History / Comment(s): AT AGE 89- UNK HX Daughter(s) Family Medical History: Cancer (Patient has 2 adopted daughters and he has been under a lot of stress with his adopted daughter whom her left taking her cars with him.) BROTHER Family Medical History: Cancer (Patient had a brother who from pancreatic and bone cancer.) Additional Family Medical History / Comment(s): BONE, PANCREATIC General Exam Limitations: physical limitation Course Vital Signs 11/24/16 11/24/16 11/24/16 09:43 10:43 11:42 Temperature 97 F L Pulse Rate 62 56 L Respiratory 18 18 Rate Blood Pressure 203/87 184/91 166/84 O2 Sat by Pulse 98 95 Oximetry 11/24/16 12:00 Temperature Pulse Rate Respiratory Rate Blood Pressure O2 Sat by Pulse 95 Oximetry Procedures - Procedures Initial comment: Laceration length was 3 cm Patient's laceration was anesthetized locally with 1 % lidocaine with epinephrine. A total of 7 sutures were placed on the outside of the upper lip with 5-0 nylon. 4 sutures were placed in the inside of the lip with 6-0 Vicryl rapid. Medical Decision Making - Medical Decision Making Patient's tetanus updated here in the emergency room. His CT of the head negative. CT C-spine negative. Patient's CT of facial bones social left maxillary nondisplaced fracture. Results were discussed with patient. Patient will be started on antibiotics of Augmentin. Patient's lacerations closed here in the emergency room. Patient is advised follow-up: 1-2 days. Advised return here to the emergency room symptoms increase or worsen. Disposition Clinical Impression: Fall, Maxillary sinus fracture, Lip laceration Disposition: HOME SELF-CARE Condition: Good Instructions: Laceration (ED) Additional Instructions: Please follow-up with ENT over the next 1-2 days. Please use antibiotic as prescribed. Please return to the emergency room in 5 days to have sutures removed. Please return here to the emergency room for any other concerns. Prescriptions: Amoxicillin/Potassium Clav [Augmentin 875-125 Tablet] 1 each PO Q12HR #20 tab Referrals: David Hassan MD [Primary Care Provider] - 1-2 days Romel Triana MD [STAFF PHYSICIAN] - 1-2 days Time of Disposition: 14:40
--- NOTE | 2016-11-24 11:07 | CT ---
EXAMINATION TYPE: CT brain jorge a fair DATE OF EXAM: 11/24/2016 COMPARISON: NONE HISTORY: Fall CT DLP: 2093.[address] of the brain was performed. The ventricles, basal cisterns and sulci overlying the cerebral convexities demonstrate mild enlargem ent. There is no evidence for intracranial hemorrhage or sulcal effacement. There is decreased attenuatio n about the periventricular white matter and deep white matter of both cerebral hemispheres, compatib le with chronic small vessel ischemia. No mass effects are seen. If symptoms persist consider MRI. Osseous calvarium is intact. IMPRESSION: 1. Age related atrophic and chronic small vessel ischemic change without acute intracranial process seen at this time. CT Cervical Spine: Unenhanced CT of the cervical spine was performed with bone and soft tissue window settings submitted . Coronal and sagittal reconstruction is obtained. There is normal alignment and prevertebral soft tissues. No evidence for acute cervical fracture . Scattered degenerative disc disease and spondylosis. Cystic degenerative changes involving C2. Biapic al scarring and emphysematous change. IMPRESSION: 1. No evidence for acute fracture or subluxation of the cervical spine.
--- NOTE | 2016-11-24 11:16 | CT ---
EXAMINATION TYPE: CT facial bones wo con DATE OF EXAM: 11/24/2016 COMPARISON: NONE HISTORY: Fall CT DLP: 436.[address] of the facial bones was performed in the axial and coronal planes. Bone and soft tissu e window settings are submitted. Mild left facial soft tissue swelling suggested. There is nondisplaced nondepressed facial bone fracture noted to involve the anterior wall inferiorly as well as the lateral wall of the left maxillary sinus. The globes are intact. Right-sided scleral buckle procedure noted. Paranasal sinuses are well-aerated. IMPRESSION: 1. Nondisplaced left maxillary fractures as discussed above. Mild underlying mucosal thickening. No a dditional fractures seen.
--- NOTE | 2016-11-24 11:26 | XR ---
EXAMINATION TYPE: XR chest 2V DATE OF EXAM: 11/24/2016 COMPARISON: 02/28/2016 HISTORY: Shortness of breath TECHNIQUE: Frontal and lateral views of the chest are obtained. FINDINGS: Scattered senescent parenchymal changes noted. Hyperinflation compatible with COPD. No evidence for infiltrate. No evidence for atelectasis. Heart size is mildly enlarged. Chronic pulmonary venous decompensation without overt failure. Single lead pacer device is unchanged in position. Mediastinal structures are stable and grossly unremarkable. No evidence for hilar prominence. Degenerative changes dorsal spine. IMPRESSION: 1. No evidence for acute pulmonary disease.
[2016-11-24] MEDS ORDERED: LIDOCAINE/EPINEPHR/TETRACAINE 5 ML BOTTLE TOPICAL ONE ×2 (13:22→13:38)
[2016-11-24] MEDS ORDERED: TOPICAL SKIN ADHESIVE 1 EACH AMP TOPICAL ONE (14:05)
[2016-11-24] MEDS ORDERED: LIDOCAINE 1%-EPI 1:100,000 20 ML VIAL SQ STA (14:09)
[2016-11-24] MEDS ORDERED: LIDOCAINE 1%/EPI 1:200,000 MPF 10 ML VIAL SQ STA (14:15)
[2016-11-24 14:48] VITALS: RESP 20
[2016-11-24 15:07] VITALS: BP 155/87; PULSE 56; TEMP 97.2
--- NOTE | 2016-11-25 07:34 | CDI ---
Documentation Clarification OP Dear Dhruv Pierson PA-C Please do addendum to ED report for missing Physical examination. Thank you, Giuseppe Maldonado Sorting Livestock Worker If you have any questions, please contact Chalk Extruding Machine Operator at [phone] [facility]
== END 2016-11-24 15:06 | disposition home or self-care (01) ==
LOC: EC 09:39
DX: S02.40DA Maxillary fracture, left side, initial encounter for closed fracture (principal); S01.511A Laceration without foreign body of lip, initial encounter; I25.10 Atherosclerotic heart disease of native coronary artery without angina pectoris; I11.0 Hypertensive heart disease with heart failure; I50.9 Heart failure, unspecified; E78.5 Hyperlipidemia, unspecified; I25.2 Old myocardial infarction; I42.9 Cardiomyopathy, unspecified; Z95.5 Presence of coronary angioplasty implant and graft; Z95.810 Presence of automatic (implantable) cardiac defibrillator; Z87.891 Personal history of nicotine dependence; Z79.82 Long term (current) use of aspirin; Z79.01 Long term (current) use of anticoagulants; Z79.899 Other long term (current) drug therapy; Z91.040 Latex allergy status; Z88.8 Allergy status to other drugs, medicaments and biological substances; Z23 Encounter for immunization; W01.0XXA Fall on same level from slipping, tripping and stumbling without subsequent striking against object, initial encounter; Y92.410 Unspecified street and highway as the place of occurrence of the external cause
CPT/HCPCS: 12013; 36415; 70450; 70486; 71020; 72125; 80053; 80061; 90471; 90715; 99284

== ENCOUNTER → 2016-11-24 | Outpatient (CLI) | payer MEDICARE ==
[2016-11-24 10:00] LABS: ALT 31 U/L (21-72); AST 22 U/L (17-59); Alkaline Phosphatase 128 U/L (38-126); Anion Gap 9 mmol/L; Blood Urea Nitrogen 22 mg/dL (9-20); Calcium 9.5 mg/dL (8.4-10.2); Carbon Dioxide 25 mmol/L (22-30); Chloride 102 mmol/L (98-107); Cholesterol 134 mg/dL (<200); Glucose 95 mg/dL (74-99); HDL Cholesterol 47 mg/dL (40-60); Non-African American GFR(MDRD) >60 (>60 ml/min/1.73 sqM); Potassium 5.7 mmol/L (3.5-5.1); Sodium 136 mmol/L (137-145); Total Bilirubin 0.4 mg/dL (0.2-1.3); Total Protein 6.5 g/dL (6.3-8.2)
== END | disposition home or self-care (01) ==
LOC: LABWHC1 09:14
PROVIDERS: ATTEND Internal Medicine Interventional Cardiology
DX: E78.2 Mixed hyperlipidemia (principal)
CPT/HCPCS: 36415; 80053; 80061

== ENCOUNTER 2016-12-03 15:29 | Inpatient (IN) | payer MEDICARE ==
[2016-12-03] MEDS ORDERED: SODIUM CHLORIDE 0.9% 1,000 ML IV STA (15:43)
--- NOTE | 2016-12-03 15:55 | ED ---
General Adult HPI - General Chief complaint: Recheck/Abnormal Lab/Rx Stated complaint: Abnormal Labs Time Seen by Provider: 12/03/16 15:43 Source: patient, RN notes reviewed, old records reviewed Mode of arrival: ambulatory Limitations: no limitations - History of Present Illness Initial comments: This is an 81-year-old male to the ER for evaluation of weakness. Patient states he does not feel well. He admits to feeling dehydrated, and is having increasing weakness. Patient recently had outpatient lab test that showed low sodium. Patient's Medical history which included a recent fall which caused some teeth fractures and facial laceration but is making hard and painful for him to eat painful for him to eat. He states he is taking answer but he states he just is feels that he is continuing to get weak despite his best efforts. Patient denies any chest pain shortness [place] pain or diarrhea - Related Data Home Medications Medication Instructions Recorded Confirmed Nitroglycerin Sl Tabs [Nitrostat] 0.4 mg SUBLINGUAL Q5M PRN 02/12/14 11/24/16 Clopidogrel [Plavix] 75 mg PO QAM 03/29/14 11/24/16 Metoprolol Tartrate [Lopressor] 25 mg PO BID 02/28/16 11/24/16 Amiodarone [Cordarone] 200 mg PO DAILY 11/24/16 11/24/16 Aspirin 325 mg PO DAILY 11/24/16 11/24/16 Fenofibrate Nanocrystallized 145 mg PO DAILY 11/24/16 11/24/16 [Fenofibrate] Lisinopril [Zestril] 5 mg PO BID 11/24/16 11/24/16 Previous Rx's Medication Instructions Recorded Atorvastatin [Lipitor] 80 mg PO HS #30 tab 11/20/13 Omeprazole [PriLOSEC] 20 mg PO AC-BRKFST #30 capsule. 11/20/13 Amoxicillin/Potassium Clav 1 each PO Q12HR #20 tab 11/24/16 [Augmentin 875-125 Tablet] Allergies Allergy/AdvReac Type Severity Reaction Status Date / Time amlodipine besylate Allergy Rash/Hives Verified 12/03/16 15:42 [From Norvasc] isosorbide [From Imdur] Allergy Unknown Verified 12/03/16 15:42 Latex, Natural Rubber Allergy Rash/Hives Verified 12/03/16 15:42 Review of Systems ROS Statement: Those systems with pertinent positive or pertinent negative responses have been documented in the HPI. ROS Other: All systems not noted in ROS Statement are negative. Past Medical History Past Medical History: Coronary Artery Disease (CAD), Heart Failure, Eye Disorder , GERD/Reflux, GI Bleed, Hyperlipidemia, Hypertension, Myocardial Infarction ([place] ), Osteoarthritis (OA), Prostate Disorder, Thyroid Disorder Additional Past Medical History / Comment(s): cardiomyopathy, DENGENERATIVE ARTHRITIS, MACULAR DEGENERATION AND CATARACTS,GI BLEED 2011, Last Myocardial Infarction Date:: 1993 History of Any Multi-Drug Resistant Organisms: None Reported Past Surgical History: Adenoidectomy, AICD, Appendectomy, Heart Catheterization , Heart Catheterization With Stent, Joint Replacement, Orthopedic Surgery, Tonsillectomy Additional Past Surgical History / Comment(s): AICD, DFT 04/02/14, TOTAL LT/RT KNEE ARTHROPLASTY, bilateral CATARACTS, bilateral carpal tunnel releases, PARTIAL THYROIDECTOMY due to nodules, trigger fingers. Past Anesthesia/Blood Transfusion Reactions: No Reported Reaction Additional Past Anesthesia/Blood Transfusion Reaction / Comment(s): wakes up during surgery Date of Last Stent Placement:: 1993 Type of Cardiac Device: AICD Device Placement Date:: 2013 Past Psychological History: No Psychological Hx Reported Smoking Status: Former smoker Past Alcohol Use History: None Reported Past Drug Use History: None Reported - Past Family History Son(s) Family Medical History: No Reported History (Patient has a son no major medical problems.) Father Family Medical History: Cancer, Coronary Artery Disease (CAD), CVA/TIA (Father at age of 86 from CVA, diabetes mellitus type 2, colon cancer and CAD.), Diabetes Mellitus Additional Family Medical History / Comment(s): CAROTID ARTERY BLOCKAGE.SX IN 1988 Mother Family Medical History: Unable to Obtain (Mother at age of 90 from old age. ) Additional Family Medical History / Comment(s): AT AGE 89- UNK HX Daughter(s) Family Medical History: Cancer (Patient has 2 adopted daughters and he has been under a lot of stress with his adopted daughter whom her left taking her cars with him.) BROTHER Family Medical History: Cancer (Patient had a brother who from pancreatic and bone cancer.) Additional Family Medical History / Comment(s): BONE, PANCREATIC General Exam Limitations: no limitations General appearance: alert, in no apparent distress Head exam: Present: atraumatic, normocephalic, normal inspection Eye exam: Present: normal appearance, PERRL, EOMI. Absent: scleral icterus, conjunctival injection, periorbital swelling ENT exam: Present: normal exam, mucous membranes dry Neck exam: Present: normal inspection. Absent: tenderness, meningismus, lymphadenopathy Respiratory exam: Present: normal lung sounds bilaterally. Absent: respiratory distress, wheezes, rales, rhonchi, stridor Cardiovascular Exam: Present: regular rate, normal rhythm, normal heart sounds. Absent: systolic murmur, diastolic murmur, rubs, gallop, clicks GI/Abdominal exam: Present: soft, normal bowel sounds. Absent: distended, tenderness, guarding, rebound, rigid Extremities exam: Present: normal inspection, full ROM, normal capillary refill. Absent: tenderness, pedal edema, joint swelling, calf tenderness Back exam: Present: normal inspection Neurological exam: Present: alert, oriented X3, CN II-XII intact Psychiatric exam: Present: normal affect, normal mood Skin exam: Present: warm, dry, intact, normal color. Absent: rash Course Vital Signs 12/03/16 15:40 Temperature 97.0 F L Pulse Rate 59 L Respiratory 18 Rate Blood Pressure 170/90 O2 Sat by Pulse 99 Oximetry - Reevaluation(s) Reevaluation #1: 12/03/16 16:04 She has outpatient lab tests that I reviewed that showed low sodium, 126 EKG Findings - EKG Comments: EKG Findings:: EKG shows sinus bradycardia rate of 55, pO2 20, QRS 106, QTC 428 Medical Decision Making - Medical Decision Making 81 male the ER for evaluation of weakness, patient has outpatient lab tests and evaluation of his the increased appetite and debility and weakness. Patient's son have abnormal sodium. Patient will be admitted for IV hydration and dietary Disposition Clinical Impression: Acute hyponatremia, Weakness, Dehydration Disposition: ADMITTED IP TO THIS HOSP Condition: Fair Referrals: David Hassan MD [Primary Care Provider] - 1-2 days
[2016-12-03] MEDS ORDERED: SODIUM CHLORIDE 0.9% 1,000 ML IV ONE (16:05)
[2016-12-03 16:20] LABS: Basophils # (A) 0.1 k/uL (0-0.2); Basophils % (A) 1 %; CH 32.3; CHCM 33.3; Eosinophils # (A) 0.6 k/uL (0-0.7); Eosinophils % (A) 9 %; HCT 44.8 % (39.0-53.0); HDW 2.16; HGB 14.7 gm/dL (13.0-17.5); Luc # (Auto) 0.19; Luc % (Auto) 3; Lymphocytes # (A) 1.2 k/uL (1.0-4.8); Lymphocytes % (A) 19 %; MCH 32.1 pg (25.0-35.0); MCHC 32.9 g/dL (31.0-37.0); MCV 97.6 fL (80.0-100.0); Mean Platelet Volume 7.7; Monocytes # (A) 0.4 k/uL (0-1.0); Monocytes % (A) 6 %; Neutrophils # (A) 4.1 k/uL (1.3-7.7); Neutrophils % (A) 63 %; RBC 4.59 m/uL (4.30-5.90); RDW 12.6 % (11.5-15.5); WBC 6.5 k/uL (3.8-10.6); WBC (Perox) 6.44
[2016-12-03 16:29] LABS: ALT 37 U/L (21-72); AST 27 U/L (17-59); Alkaline Phosphatase 139 U/L (38-126); Anion Gap 8 mmol/L; Blood Urea Nitrogen 23 mg/dL (9-20); Calcium 9.5 mg/dL (8.4-10.2); Carbon Dioxide 23 mmol/L (22-30); Chloride 97 mmol/L (98-107); Glucose 96 mg/dL (74-99); INR 1.1 (<1.2); Magnesium 1.9 mg/dL (1.6-2.3); Non-African American GFR(MDRD) >60 (>60 ml/min/1.73 sqM); Phosphorus 3.5 mg/dL (2.5-4.5); Potassium 5.5 mmol/L (3.5-5.1); Prothrombin Time 11.1 sec (9.0-12.0); Sodium 128 mmol/L (137-145); Total Bilirubin 0.5 mg/dL (0.2-1.3); Total Protein 6.3 g/dL (6.3-8.2)
[2016-12-03 16:38] LABS: Creatine Kinase 91 U/L (55-170)
[2016-12-03 16:41] LABS: Appearance,Urine Clear (Clear); Bilirubin,Urine Negative (Negative); Glucose,Urine (UA) Negative (Negative); Ketones,Urine Negative (Negative); Leukocyte Esterase,Urine Negative (Negative); Nitrite,Urine Negative (Negative); Protein,Urine Negative (Negative); Specific Gravity,Urine 1.017 (1.001-1.035); UA Billing (MACRO vs. MICRO) CHEM; Urobilinogen,Urine <2.0 mg/dL (<2.0)
[2016-12-03 16:51] LABS: Troponin I <0.012 ng/mL (0.000-0.034)
[2016-12-03] MEDS ORDERED: NITROGLYCERIN SL TABS 0.4 MG TAB SUBLINGUAL PRN (18:06)
[2016-12-03 18:38] LABS: Uric Acid 4.3 mg/dL (3.5-8.5)
[2016-12-03] MEDS: ATORVASTATIN 80 MG TAB PO SCH (21:17)
[2016-12-03] MEDS: METOPROLOL TARTRATE 25 MG TAB PO SCH (21:18)
[2016-12-03] MEDS: AMOXIC-POT CLAV 875-125MG 1 EACH TAB PO SCH (21:18)
[2016-12-04] MEDS: ASPIRIN 325 MG TAB PO SCH (08:10)
[2016-12-04] MEDS: PANTOPRAZOLE 40 MG TABLET PO SCH (08:10)
[2016-12-04] MEDS: AMOXIC-POT CLAV 875-125MG 1 EACH TAB PO SCH ×2 (08:10→21:36)
[2016-12-04] MEDS: METOPROLOL TARTRATE 25 MG TAB PO SCH ×2 (08:10→21:35)
[2016-12-04] MEDS: AMIODARONE 200 MG TAB PO SCH (08:11)
[2016-12-04] MEDS: CLOPIDOGREL 75 MG TAB PO SCH (08:11)
[2016-12-04] MEDS: LORATADINE 10 MG TAB PO SCH (08:13)
[2016-12-04] MEDS: ENOXAPARIN 40 MG/0.4 ML SYRINGE SQ SCH (08:24)
[2016-12-04] MEDS: FLUTICASONE 50MCG/SPRAY NASAL 16GM EA NOSTRIL SCH (08:25)
[2016-12-04 08:35] LABS: Basophils # (A) 0.1 k/uL (0-0.2); Basophils % (A) 1 %; CH 33.4; Eosinophils # (A) 0.5 k/uL (0-0.7); Eosinophils % (A) 7 %; HCT 43.5 % (39.0-53.0); HDW 2.18; Luc # (Auto) 0.16; Luc % (Auto) 2; Lymphocytes # (A) 1.1 k/uL (1.0-4.8); Lymphocytes % (A) 16 %; MCH 32.8 pg (25.0-35.0); MCHC 32.3 g/dL (31.0-37.0); MCV 101.6 fL (80.0-100.0); Macrocytosis Slight; Mean Platelet Volume 8.4; Monocytes # (A) 0.4 k/uL (0-1.0); Monocytes % (A) 5 %; Neutrophils # (A) 4.9 k/uL (1.3-7.7); Neutrophils % (A) 69 %; RBC 4.28 m/uL (4.30-5.90); RDW 13.8 % (11.5-15.5); WBC 7.1 k/uL (3.8-10.6); WBC (Perox) 7.07
[2016-12-04 09:45] LABS: Anion Gap 7 mmol/L; Blood Urea Nitrogen 15 mg/dL (9-20); Calcium 9.1 mg/dL (8.4-10.2); Carbon Dioxide 24 mmol/L (22-30); Chloride 103 mmol/L (98-107); Glucose 92 mg/dL (74-99); Non-African American GFR(MDRD) >60 (>60 ml/min/1.73 sqM); Potassium 4.9 mmol/L (3.5-5.1); Sodium 134 mmol/L (137-145)
[2016-12-04 10:28] VITALS: BMI 28.0
--- NOTE | 2016-12-04 11:45 | P.HPIM ---
History of Present Illness H&P Date: 12/04/16 Chief Complaint: hyponatremia This is an 81-year-old male one of Dr. Hassan with a previous medical history significant for CAD post the cardiac arrest with ischemic cardiomyopathy post AICD implantation, left heart catheterization with PCI back in 2013, chronic systolic heart failure, peptic ulcer disease, hyperlipidemia, hypothyroidism, osteoarthritis. Patient was last admitted in February 2016 for dizziness and subsequently his ICD fired first time and it did fire again the second time V. fib V. tach was detected. ICD was interrogated and adjusted from 25-35 J. Patient is here this time with increased weakness and dehydration. According to the patient since he was not feeling well he went to see his primary care physician who ordered some labs which suggested low- sodium. Patient also had a recent fall fracturing multiple teeth in the upper jaw and facial laceration making it difficult for him to chew or drink. 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 Patient denies decreased urination, dysuria and burning micturition. Patient denies any confusion or change in mental status but does endorse significant weakness. Patient's sodium on admission was 128, received bolus of normal saline followed by normal saline running at 100 mL/h per. Repeat sodium ordered spending, urine osmolality, urine sodium, serum osmolality ordered. Nephrology consulted for management Review of Systems Constitutional: Reports weakness, Denies anorexia, Denies chills, Denies fever Eyes: denies diplopia, denies discharge, denies pain Ears, nose, mouth and throat: Reports dental pain, Reports mouth pain, Denies bleeding gums, Denies dysphagia, Denies headache, Denies hoarseness Cardiovascular: Denies chest pain, Denies decreased exercise tolerance, Denies irregular heart beat, Denies leg edema, Denies lightheadedness, Denies rapid heart beat, Denies shortness of breath Respiratory: Denies cough, Denies cough with sputum, Denies dyspnea Gastrointestinal: Denies change in bowel habits, Denies coffee ground emesis, Denies constipation, Denies excessive gas, Denies heartburn, Denies hematemesis , Denies hematochezia Genitourinary: Denies polyuria, Denies urinary frequency, Denies urinary hesitancy, Denies urinary retention Musculoskeletal: Reports fractures, Reports frequent falls, Reports gait dysfunction, Reports low back pain, Denies morning stiffness, Denies muscle weakness, Denies neck stiffness Neurological: Denies aphasia, Denies ataxia, Denies balance difficulties, Denies change in mentation, Denies change in speech, Denies confusion, Denies convulsions, Denies lack of coordination, Denies loss of vision, Denies memory loss, Denies motor disturbance, Denies numbness, Denies paralysis, Denies vertigo Psychiatric: Reports change in appetite, Denies change in libido, Denies disorientation, Denies hallucinations, Denies hopelessness Endocrine: Reports fatigue, Denies excessive sweating, Denies excessive thirst Past Medical History Past Medical History: Coronary Artery Disease (CAD), Heart Failure, Eye Disorder , GERD/Reflux, GI Bleed, Hyperlipidemia, Hypertension, Myocardial Infarction (AL ), Osteoarthritis (OA), Prostate Disorder, Thyroid Disorder Additional Past Medical History / Comment(s): cardiomyopathy, DENGENERATIVE ARTHRITIS, MACULAR DEGENERATION AND CATARACTS,GI BLEED 2011, fall 11-24-16/ facial inj/bruing/broken front teeth. Last Myocardial Infarction Date:: 1993 History of Any Multi-Drug Resistant Organisms: None Reported Past Surgical History: Adenoidectomy, AICD, Appendectomy, Heart Catheterization , Heart Catheterization With Stent, Joint Replacement, Orthopedic Surgery, Tonsillectomy Additional Past Surgical History / Comment(s): AICD, DFT 04/02/14, TOTAL LT/RT KNEE ARTHROPLASTY, bilateral CATARACTS, bilateral carpal tunnel releases, PARTIAL THYROIDECTOMY due to nodules, trigger fingers. Past Anesthesia/Blood Transfusion Reactions: No Reported Reaction Additional Past Anesthesia/Blood Transfusion Reaction / Comment(s): wakes up during surgery Date of Last Stent Placement:: 1993 Type of Cardiac Device: AICD Device Placement Date:: 2013 Smoking Status: Former smoker - Past Family History Son(s) Family Medical History: No Reported History Father Family Medical History: Cancer, Coronary Artery Disease (CAD), CVA/TIA, Diabetes Mellitus Additional Family Medical History / Comment(s): CAROTID ARTERY BLOCKAGE.SX IN 1988 Mother Family Medical History: Unable to Obtain Additional Family Medical History / Comment(s): AT AGE 89- UNK HX Daughter(s) Family Medical History: Cancer (Patient has 2 adopted daughters and he has been under a lot of stress with his adopted daughter whom her left taking her cars with him.) BROTHER Family Medical History: Cancer Additional Family Medical History / Comment(s): BONE, PANCREATIC Medications and Allergies Home Medications Medication Instructions Recorded Confirmed Type Atorvastatin [Lipitor] 80 mg PO HS #30 tab 11/20/13 12/03/16 Rx Omeprazole [PriLOSEC] 20 mg PO AC-BRKFST #30 capsule. 11/20/13 12/03/16 Rx Nitroglycerin Sl Tabs [Nitrostat] 0.4 mg SUBLINGUAL Q5M PRN 02/12/14 12/03/16 History Clopidogrel [Plavix] 75 mg PO DAILY 03/29/14 12/03/16 History Metoprolol Tartrate [Lopressor] 25 mg PO BID 02/28/16 12/03/16 History Amiodarone [Cordarone] 200 mg PO DAILY 11/24/16 12/03/16 History Aspirin 325 mg PO DAILY 11/24/16 12/03/16 History Lisinopril [Zestril] 5 mg PO BID 11/24/16 12/03/16 History Amoxicillin/Potassium Clav 1 tab PO Q12HR 12/03/16 12/03/16 History [Augmentin 875-125 Tablet] Cetirizine HCl [Zyrtec] 10 mg PO DAILY 12/03/16 12/03/16 History Fluticasone Nasal [place] [Flonase 1 spray EA NOSTRIL DAILY 12/03/16 12/03/16 History Nasal [place]] Spironolactone [Aldactone] 12.5 mg PO DAILY 12/03/16 12/03/16 History Allergies Allergy/AdvReac Type Severity Reaction Status Date / Time amlodipine besylate Allergy Rash/Hives Verified 12/03/16 16:19 [From Norvasc] isosorbide [From Imdur] Allergy Unknown Verified 12/03/16 16:19 Latex, Natural Rubber Allergy Rash/Hives Verified 12/03/16 16:19 Physical Exam Vitals: Vital Signs Temp Pulse Pulse Resp BP BP Pulse Ox 12/04/16 07:00 96.9 F L 54 L 19 144/76 95 12/03/16 22:48 97.8 F 54 L 18 148/76 98 12/03/16 19:45 97.4 F L 51 L 18 146/75 12/03/16 17:35 97.8 F 52 L 18 146/68 99 12/03/16 16:45 97.5 F L 57 L 20 170/92 99 12/03/16 16:06 54 L 12/03/16 15:40 97.0 F L 59 L 18 170/90 99 Intake and Output 12/03/16 12/04/16 12/04/16 22:59 06:59 14:59 Other: Voiding Method Toilet # Voids 2 4 Weight 86.183 kg - Constitutional General appearance: average body habitus, cooperative, mild distress - EENT Eyes: EOMI, PERRLA, no ptosis, normal appearance ENT: hard of hearing, no normal oropharynx (multiple broken tooth with sutures on the inner upper lip) Ears: negative: bulging, bullous, dull - Neck Neck: no lymphadenopathy, normal ROM, no rigidity - Respiratory Respiratory: bilateral: CTA, negative: diminished, dullness, rhonchi, wheezing - Cardiovascular Rhythm: regular Heart sounds: normal: S1, S2 Abnormal Heart Sounds: systolic murmur ankle Peripheral Edema: right: Trace (superficial varicose veins seen) dorsalis pedis Peripheral Pulses: bilateral: Normal - Gastrointestinal General gastrointestinal: no distended, normal bowel sounds, soft, no tenderness - Neurologic Neurologic: CNII-XII intact - Musculoskeletal Musculoskeletal: generalized weakness, strength equal bilaterally - Psychiatric Psychiatric: A&O x's 3, appropriate affect Results CBC & Chem 7: 12/04/16 08:15 12/04/16 08:15 Labs: Abnormal Lab Results - Last 24 Hours (Table) 12/03/16 12/03/16 12/04/16 Range/Units 16:07 18:05 08:15 RBC 4.28 L (4.30-5.90) m/uL MCV 101.6 H (80.0-100.0) fL Sodium 128 L (137-145) mmol/L Potassium 5.5 H (3.5-5.1) mmol/L Chloride 97 L (98-107) mmol/L BUN 23 H (9-20) mg/dL Osmolality 272 L (280-301) mosm/kg Alkaline Phosphatase 139 H (38-126) U/L Microbiology - Last 24 Hours (Table) 12/03/16 16:31 Urine Culture - Preliminary Urine,Voided Thrombosis Risk Factor Assmnt - DVT/VTE Prophylaxis DVT/VTE Prophylaxis: Pharmacologic Prophylaxis ordered - Choose All That Apply Any of the Below Risk Factors Present?: Yes Each Factor Represents 1 point: Obesity (BMI >25) Other Risk Factors: Yes Each Risk Factor Represents 3 Points: Age 75 years or older Other congenital or acquired thrombophilia - If yes, enter type in comment: No Thrombosis Risk Factor Assessment Total Risk Factor Score: 4 Thrombosis Risk Factor Assessment Level: Moderate Risk Assessment and Plan Plan: 1. Hyponatremia - likely hypovolemic hyponatremia from dehydration - Continue fluids at 100 mL/h - Repeat sodium is better than yesterday - We will resume patient's Aldactone and lisinopril and watch him overnight - Repeat sodium tomorrow 2. Dehydration likely secondary to decreased oral intake continue fluids at 100 mL per hour 3. Recent fall with multiple dental injury and upper lip laceration s/p suture - Speech evaluation for diet - PT evalaution - Continue augmentin 4. h/o V. fib/V. tach - Continue amiopdarone 200 mg po daily 5. CAD post AL with cardiac arrest status post PCI back in 2013. Continue metoprolol 25 mg orally twice every day, Capoten 25 mg orally twice every day, aspirin 81 mg orally once every day, Plavix 75 mg orally once every day. 6. Hyperlipidemia. Continue patient on low-cholesterol diet. 7. Hypertension. Continue metoprolol 25 mg orally twice every day, Capoten 25 minute gram orally twice every day. 8. Post partial thyroidectomy. 9. AMD. Stable at this point in time. 10. History of PUD. Continue Protonix 40 mg orally once every day. 11. Osteoarthritis. Stable. 12. Ischemic cardiomyopathy s/p AICD Stable at this time. 13. DVT prophylaxis. Lovenox 40 mg subcutaneously every 24 hours. 14. GI prophylaxis. Protonix 40 mg orally once every day. 15. Admit to inpatient. 16. Estimate length of stay 2 midnights.
[2016-12-04] MEDS: SPIRONOLACTONE 25 MG TAB PO SCH (12:20)
--- NOTE | 2016-12-04 13:56 | P.NPCON ---
History of Present Illness - Reason for Consult hyponatremia - History of Present Illness Reason for consultation: Hyponatremia History of present illness: Patient is a 81-year-old male seen in renal consultation for hyponatremia. Patient states about 10 days ago he had his blood work done and he was noted to have a low sodium level. He subsequently sustained a fall as well. He required 11 stitches around his lips and therefore his oral intake has been poor. He's been mostly drinking liquids only. He then followed up with this physician a few days later and was again noted to be hyponatremic and was advised to come to the hospital. His sodium level was 128 on admission. He did receive normal saline bolus and is currently maintained on normal saline at 100 mL an hour. Sodium level today is up to 134. Creatinine was 1.1 on admission and is 0.9 today. His oral intake has improved. He is tolerating regular diet. No vomiting or diarrhea. Denies any prior history of kidney disease. He was taking Aldactone at home but I don't see any thiazide diuretics and his home medications. No active complaints at this time. Hemodynamically stable. Vital signs are stable. General: The patient appeared well nourished and normally developed. HEENT: Head exam is unremarkable. Neck is without jugular venous distension. LUNGS: Lungs are clear to auscultation and percussion. Breath sounds decreased. HEART: Rate and Rhythm are regular. First and second heart sounds normal. No murmurs, rubs or gallops. ABDOMEN: Abdominal exam reveals normal bowel sounds. Non-tender and non- distended. No evidence of peritonitis. EXTREMITITES: No clubbing, cyanosis, or edema. Past Medical History Past Medical History: Coronary Artery Disease (CAD), Heart Failure, Eye Disorder , GERD/Reflux, GI Bleed, Hyperlipidemia, Hypertension, Myocardial Infarction ([place] ), Osteoarthritis (OA), Prostate Disorder, Thyroid Disorder Additional Past Medical History / Comment(s): cardiomyopathy, DENGENERATIVE ARTHRITIS, MACULAR DEGENERATION AND CATARACTS,GI BLEED 2011, fall 11-24-16/ facial inj/bruing/broken front teeth. Last Myocardial Infarction Date:: 1993 History of Any Multi-Drug Resistant Organisms: None Reported Past Surgical History: Adenoidectomy, AICD, Appendectomy, Heart Catheterization , Heart Catheterization With Stent, Joint Replacement, Orthopedic Surgery, Tonsillectomy Additional Past Surgical History / Comment(s): AICD, DFT 04/02/14, TOTAL LT/RT KNEE ARTHROPLASTY, bilateral CATARACTS, bilateral carpal tunnel releases, PARTIAL THYROIDECTOMY due to nodules, trigger fingers. Past Anesthesia/Blood Transfusion Reactions: No Reported Reaction Additional Past Anesthesia/Blood Transfusion Reaction / Comment(s): wakes up during surgery Date of Last Stent Placement:: 1993 Type of Cardiac Device: AICD Device Placement Date:: 2013 Smoking Status: Former smoker - Past Family History Son(s) Family Medical History: No Reported History Father Family Medical History: Cancer, Coronary Artery Disease (CAD), CVA/TIA, Diabetes Mellitus Additional Family Medical History / Comment(s): CAROTID ARTERY BLOCKAGE.SX IN 1988 Mother Family Medical History: Unable to Obtain Additional Family Medical History / Comment(s): AT AGE 89- UNK HX Daughter(s) Family Medical History: Cancer (Patient has 2 adopted daughters and he has been under a lot of stress with his adopted daughter whom her left taking her cars with him.) BROTHER Family Medical History: Cancer Additional Family Medical History / Comment(s): BONE, PANCREATIC Medications and Allergies Home Medications Medication Instructions Recorded Confirmed Type Atorvastatin [Lipitor] 80 mg PO HS #30 tab 11/20/13 12/03/16 Rx Omeprazole [PriLOSEC] 20 mg PO AC-BRKFST #30 capsule. 11/20/13 12/03/16 Rx Nitroglycerin Sl Tabs [Nitrostat] 0.4 mg SUBLINGUAL Q5M PRN 02/12/14 12/03/16 History Clopidogrel [Plavix] 75 mg PO DAILY 03/29/14 12/03/16 History Metoprolol Tartrate [Lopressor] 25 mg PO BID 02/28/16 12/03/16 History Amiodarone [Cordarone] 200 mg PO DAILY 11/24/16 12/03/16 History Aspirin 325 mg PO DAILY 11/24/16 12/03/16 History Lisinopril [Zestril] 5 mg PO BID 11/24/16 12/03/16 History Amoxicillin/Potassium Clav 1 tab PO Q12HR 12/03/16 12/03/16 History [Augmentin 875-125 Tablet] Cetirizine HCl [Zyrtec] 10 mg PO DAILY 12/03/16 12/03/16 History Fluticasone Nasal [place] [Flonase 1 spray EA NOSTRIL DAILY 12/03/16 12/03/16 History Nasal [place]] Spironolactone [Aldactone] 12.5 mg PO DAILY 12/03/16 12/03/16 History Allergies Allergy/AdvReac Type Severity Reaction Status Date / Time amlodipine besylate Allergy Rash/Hives Verified 12/03/16 16:19 [From [place]] isosorbide [From Imdur] Allergy Unknown Verified 12/03/16 16:19 Latex, Natural Rubber Allergy Rash/Hives Verified 12/03/16 16:19 Physical Exam Vitals: Vital Signs Temp Pulse Pulse Resp BP BP Pulse Ox 12/04/16 07:00 96.9 F L 54 L 19 144/76 95 12/03/16 22:48 97.8 F 54 L 18 148/76 98 12/03/16 19:45 97.4 F L 51 L 18 146/75 12/03/16 17:35 97.8 F 52 L 18 146/68 99 12/03/16 16:45 97.5 F L 57 L 20 170/92 99 12/03/16 16:06 54 L 12/03/16 15:40 97.0 F L 59 L 18 170/90 99 Intake and Output 12/03/16 12/04/16 12/04/16 22:59 06:59 14:59 Other: Voiding Method Toilet # Voids 2 4 Weight 86.183 kg 86.183 kg Patient Weight 12/05/16 06:59 Weight 86.183 kg Results - Lab Results Most recent lab results Calcium 9.1 mg/dL (8.4-10.2) 12/04/16 08:15 Phosphorus 3.5 mg/dL (2.5-4.5) 12/03/16 16:07 Magnesium 1.9 mg/dL (1.6-2.3) 12/03/16 16:07 12/04/16 08:15 12/04/16 08:15 Assessment and Plan Plan: Assessment: #1. Hypovolemic hyponatremia improved with IV hydration. Sodium level was 128 on admission and is up to 134 today. Urine osmolality noted to be on the lower end at 293, which can be due to component of tea and toast diet. Patient was mostly drinking liquids only as he was unable to tolerate solid foods due to stitches around his lips. #2. Benign hypertension. Controlled. #3. Mild hyperkalemia due to use of Aldactone. Resolved. Plan: Continue with normal saline to be run at 100 mL an hour for the next 24 hours. Fluids can likely be discontinued tomorrow as his oral intake has improved significantly. Potential discharge home tomorrow. Thank you for the consultation. I will continue to follow the patient with you during his hospital stay.
[2016-12-04] MEDS: LISINOPRIL 5 MG TAB PO SCH (21:35)
[2016-12-04] MEDS: ATORVASTATIN 80 MG TAB PO SCH (21:35)
[2016-12-05] MEDS: CLOPIDOGREL 75 MG TAB PO SCH (07:54)
[2016-12-05] MEDS: ASPIRIN 325 MG TAB PO SCH (07:54)
[2016-12-05] MEDS: LORATADINE 10 MG TAB PO SCH (07:55)
[2016-12-05] MEDS: LISINOPRIL 5 MG TAB PO SCH ×2 (07:55→21:13)
[2016-12-05] MEDS: AMOXIC-POT CLAV 875-125MG 1 EACH TAB PO SCH ×2 (07:55→21:13)
[2016-12-05] MEDS: SPIRONOLACTONE 25 MG TAB PO SCH (07:55)
[2016-12-05] MEDS: METOPROLOL TARTRATE 25 MG TAB PO SCH ×2 (07:56→21:13)
[2016-12-05] MEDS: FLUTICASONE 50MCG/SPRAY NASAL 16GM EA NOSTRIL SCH (07:56)
[2016-12-05] MEDS: AMIODARONE 200 MG TAB PO SCH (07:56)
[2016-12-05] MEDS: PANTOPRAZOLE 40 MG TABLET PO SCH (07:56)
[2016-12-05] MEDS: ENOXAPARIN 40 MG/0.4 ML SYRINGE SQ SCH (07:56)
--- NOTE | 2016-12-05 10:56 | P.PN ---
Subjective Progress Note Date: 12/05/16 Principal diagnosis: This is an 81-year-old who is seen in consultation because of hyponatremia secondary to hypovolemia. He had fallen and had stitches on his legs and was unable to eat and drink very well. He responded very well IV saline with sodium improved from 128- to 134 mEq as of yesterday. This morning he has actually no complaints able to eat and drink very well is still on IV normal saline. Is able to walk. No nausea vomiting headache fever chills cough. Completely asymptomatic and wants to go home Objective - Vital Signs Vital signs: Vital Signs Temp 97.7 F 12/05/16 07:00 Pulse 57 L 12/05/16 08:00 Resp 20 12/05/16 08:00 BP 152/79 12/05/16 07:00 Pulse Ox 93 L 12/05/16 07:00 Intake & Output 12/04/16 12/05/16 12/05/16 18:59 06:59 18:59 Intake Total 200 300 240 Balance 200 300 240 Weight 86.183 kg Intake: Oral 200 300 240 Other: Voiding Method Toilet # Voids 1 2 On examination is awake alert oriented comfortable A chin exam no JVP neck is supple no facial asymmetry Lungs are clear to auscultation percussion good air entry bilaterally Heart sounds are unremarkable no murmur rub gallop Abdomen soft nontender Extremity exam was no edema Neurologically awake alert oriented cheerful no focal motor deficit The stitches on the lip are healing - Labs CBC & Chem 7: 12/04/16 08:15 12/04/16 08:15 Labs: Microbiology - Last 24 Hours (Table) 12/03/16 16:31 Urine Culture - Final Urine,Voided Assessment and Plan Plan: Hyponatremia secondary to decreased intake and resolving with sodium coming down to 134. Patient can be discharged from a nephrological perspective. Thank you for this consultation
[2016-12-05 19:56] LABS: ALT 30 U/L (21-72); AST 24 U/L (17-59); Alkaline Phosphatase 132 U/L (38-126); Anion Gap 9 mmol/L; Blood Urea Nitrogen 15 mg/dL (9-20); Calcium 9.5 mg/dL (8.4-10.2); Carbon Dioxide 21 mmol/L (22-30); Chloride 103 mmol/L (98-107); Glucose 99 mg/dL (74-99); Non-African American GFR(MDRD) >60 (>60 ml/min/1.73 sqM); Potassium 4.8 mmol/L (3.5-5.1); Sodium 133 mmol/L (137-145); Total Bilirubin 0.6 mg/dL (0.2-1.3); Total Protein 6.3 g/dL (6.3-8.2)
[2016-12-05] MEDS: ATORVASTATIN 80 MG TAB PO SCH (21:13)
--- NOTE | 2016-12-05 21:42 | PN ---
PROGRESS NOTE INTERVAL HISTORY: Patient continued to be hemodynamically stable over the last 24 hours. No major events reported overnight. The patient was evaluated by Nephrology today who recommended a continuation with the current fluid infusion due to dehydration. Patient is tolerating diet well without any difficulty. PHYSICAL EXAMINATION: Vital signs 97.0, 56, 20, 154/74, and saturation 97% on room air. Lungs diminished bilaterally. NECK: Supple S1, S2. Soft. Positive bowel sounds all 4 quadrants. Lower extremity no edema. Psych alert and oriented. Following commands. IMAGING AND LAB STUDIES: Sodium today 133, bicarb still low at 21, alkaline phosphatase 132, albumin 3.4. ASSESSMENT AND PLAN: 1. Hyponatremia, likely related to poor nutrition and dehydration seems to be overall improving and no neurological symptoms. We will follow up with Nephrology recommendation. Consider discharging the patient in the morning if he continued to be hemodynamically stable with stability and numbers. 2. Recent fall with multiple dental injury and upper lip laceration status post sutures seems to be clean. We will continue wound care. 3. Coronary artery disease, seems to be compensated. 4. Hypertension under fair control. Continue home medication. 5. History of peptic ulcer disease. Will continue proton pump inhibitor. 6. Discharge planning in the morning if patient continues to be stable. MMODL / IJN: [id number] /
[2016-12-06 07:38] VITALS: BP 129/72; PULSE 56; RESP 18; TEMP 97.7
[2016-12-06 07:48] LABS: Basophils # (A) 0.1 k/uL (0-0.2); Basophils % (A) 1 %; CH 32.3; CHCM 32.7; Eosinophils # (A) 0.8 k/uL (0-0.7); Eosinophils % (A) 12 %; HCT 44.5 % (39.0-53.0); HDW 2.21; HGB 14.4 gm/dL (13.0-17.5); Luc # (Auto) 0.16; Luc % (Auto) 2; Lymphocytes # (A) 1.2 k/uL (1.0-4.8); Lymphocytes % (A) 16 %; MCHC 32.3 g/dL (31.0-37.0); MCV 99.2 fL (80.0-100.0); Mean Platelet Volume 7.4; Monocytes # (A) 0.4 k/uL (0-1.0); Monocytes % (A) 5 %; Neutrophils # (A) 4.7 k/uL (1.3-7.7); Neutrophils % (A) 64 %; RBC 4.49 m/uL (4.30-5.90); RDW 12.9 % (11.5-15.5); WBC 7.3 k/uL (3.8-10.6); WBC (Perox) 7.42
[2016-12-06 08:04] LABS: ALT 29 U/L (21-72); AST 20 U/L (17-59); Alkaline Phosphatase 123 U/L (38-126); Anion Gap 7 mmol/L; Blood Urea Nitrogen 13 mg/dL (9-20); Calcium 9.3 mg/dL (8.4-10.2); Carbon Dioxide 24 mmol/L (22-30); Chloride 103 mmol/L (98-107); Glucose 101 mg/dL (74-99); Magnesium 1.6 mg/dL (1.6-2.3); Non-African American GFR(MDRD) >60 (>60 ml/min/1.73 sqM); Potassium 4.7 mmol/L (3.5-5.1); Sodium 134 mmol/L (137-145); Total Bilirubin 0.5 mg/dL (0.2-1.3); Total Protein 6.1 g/dL (6.3-8.2)
[2016-12-06] MEDS: CLOPIDOGREL 75 MG TAB PO SCH (08:43)
[2016-12-06] MEDS: FLUTICASONE 50MCG/SPRAY NASAL 16GM EA NOSTRIL SCH (08:43)
[2016-12-06] MEDS: AMOXIC-POT CLAV 875-125MG 1 EACH TAB PO SCH (08:43)
[2016-12-06] MEDS: LISINOPRIL 5 MG TAB PO SCH (08:43)
[2016-12-06] MEDS: AMIODARONE 200 MG TAB PO SCH (08:43)
[2016-12-06] MEDS: LORATADINE 10 MG TAB PO SCH (08:44)
[2016-12-06] MEDS: ENOXAPARIN 40 MG/0.4 ML SYRINGE SQ SCH (08:44)
[2016-12-06] MEDS: METOPROLOL TARTRATE 25 MG TAB PO SCH (08:44)
[2016-12-06] MEDS: PANTOPRAZOLE 40 MG TABLET PO SCH (08:44)
[2016-12-06] MEDS: SPIRONOLACTONE 25 MG TAB PO SCH (08:44)
[2016-12-06] MEDS: ASPIRIN 325 MG TAB PO SCH (08:44)
--- NOTE | 2016-12-06 10:21 | P.DS ---
Providers Date of admission: 12/03/16 16:05 Attending physician: Oskar Rowland Consults: 12/04/16 09:12 Consult Physician Routine Consulting Provider: Murtaza Miranda Consult Reason/Comments: hyponatremia Do you want consulting provider notified?: Yes Primary care physician: [facility] Course: This is 81 years old male who presented to the hospital with dehydration patient was started on IV fluid and his sodium improved as it was low at the presentation. Patient was evaluated by nephrology who recommended close follow- up outpatient and I strongly advised patient to follow-up with his primary care physician between Wednesday and Wednesday for repeat blood work and a short resolution of his medical problem is sodium was improved during the hospital stay and patient was tolerating diet up to the bathroom on his own and back at baseline mental status according to the nursing staff and patient reassured me that this is normal for him. Blood work was reviewed at the time of the discharge physician. Clinically stable and was discharged home in stable condition Patient Condition at Discharge: Fair Plan - Discharge Summary Discharge Rx Participant: No New Discharge Prescriptions: No Action Atorvastatin [Lipitor] 80 mg PO HS #30 tab Omeprazole [PriLOSEC] 20 mg PO AC-BRKFST #30 capsule. Nitroglycerin Sl Tabs [Nitrostat] 0.4 mg SUBLINGUAL Q5M PRN PRN Reason: Chest Pain Clopidogrel [Plavix] 75 mg PO DAILY Metoprolol Tartrate [Lopressor] 25 mg PO BID Lisinopril [Zestril] 5 mg PO BID Aspirin 325 mg PO DAILY Amiodarone [Cordarone] 200 mg PO DAILY Spironolactone [Aldactone] 12.5 mg PO DAILY Fluticasone Nasal [place] [Flonase Nasal [place]] 1 spray EA NOSTRIL DAILY Cetirizine HCl [Zyrtec] 10 mg PO DAILY Amoxicillin/Potassium Clav [Augmentin 875-125 Tablet] 1 tab PO Q12HR Discharge Medication List Atorvastatin [Lipitor] 80 mg PO HS #30 tab 11/20/13 [Rx] Omeprazole [PriLOSEC] 20 mg PO AC-BRKFST #30 capsule. 11/20/13 [Rx] Nitroglycerin Sl Tabs [Nitrostat] 0.4 mg SUBLINGUAL Q5M PRN 02/12/14 [History] Clopidogrel [Plavix] 75 mg PO DAILY 03/29/14 [History] Metoprolol Tartrate [Lopressor] 25 mg PO BID 02/28/16 [History] Amiodarone [Cordarone] 200 mg PO DAILY 11/24/16 [History] Aspirin 325 mg PO DAILY 11/24/16 [History] Lisinopril [Zestril] 5 mg PO BID 11/24/16 [History] Amoxicillin/Potassium Clav [Augmentin 875-125 Tablet] 1 tab PO Q12HR 12/03/16 [ History] Cetirizine HCl [Zyrtec] 10 mg PO DAILY 12/03/16 [History] Fluticasone Nasal [place] [Flonase Nasal [place]] 1 spray EA NOSTRIL DAILY 12/03/16 [History] Spironolactone [Aldactone] 12.5 mg PO DAILY 12/03/16 [History] Follow up Appointment(s)/Referral(s): David Hassan MD [Primary Care Provider] - 1-2 days Patient Instructions/Handouts: Heart Failure (DC)
== END 2016-12-06 11:35 | disposition home or self-care (01) | DRG 641 ==
LOC: EC 15:29 → 4MS4W 16:05
PROVIDERS: ADMIT Internal Medicine; ATTEND Internal Medicine
DX: E87.1 Hypo-osmolality and hyponatremia (principal); E86.0 Dehydration; I50.22 Chronic systolic (congestive) heart failure; I11.0 Hypertensive heart disease with heart failure; Z86.74 Personal history of sudden cardiac arrest; E86.1 Hypovolemia; E87.5 Hyperkalemia; I25.5 Ischemic cardiomyopathy; T50.0X5A Adverse effect of mineralocorticoids and their antagonists, initial encounter; I25.10 Atherosclerotic heart disease of native coronary artery without angina pectoris; M47.9 Spondylosis, unspecified; E03.9 Hypothyroidism, unspecified; E78.5 Hyperlipidemia, unspecified; M19.91 Primary osteoarthritis, unspecified site; K21.9 Gastro-esophageal reflux disease without esophagitis; I25.2 Old myocardial infarction; H35.30 Unspecified macular degeneration; S02.5XXD Fracture of tooth (traumatic), subsequent encounter for fracture with routine healing; N42.9 Disorder of prostate, unspecified; S02.401D Maxillary fracture, unspecified side, subsequent encounter for fracture with routine healing; Z79.82 Long term (current) use of aspirin; Z79.02 Long term (current) use of antithrombotics/antiplatelets; Z79.899 Other long term (current) drug therapy; Z95.810 Presence of automatic (implantable) cardiac defibrillator; Z87.11 Personal history of peptic ulcer disease; Z95.5 Presence of coronary angioplasty implant and graft; Z96.653 Presence of artificial knee joint, bilateral; Z87.891 Personal history of nicotine dependence; Z98.42 Cataract extraction status, left eye; Z98.41 Cataract extraction status, right eye; Z91.040 Latex allergy status; Z88.8 Allergy status to other drugs, medicaments and biological substances; W19.XXXD Unspecified fall, subsequent encounter
CPT/HCPCS: 36415; 80048; 80053; 81003; 82550; 82553; 83735; 83930; 83935; 84100; 84484; 84550; 85025; 85610; 85730; 87086; 93005; 96365; 99285

== ENCOUNTER → 2017-03-30 | Outpatient (CLI) | payer MEDICARE ==
[2017-03-30 09:33] LABS: ALT 27 U/L (21-72); AST 22 U/L (17-59); Albumin 3.8 g/dL (3.5-5.0); Alkaline Phosphatase 146 U/L (38-126); Anion Gap 8 mmol/L; Blood Urea Nitrogen 15 mg/dL (9-20); Calcium 9.5 mg/dL (8.4-10.2); Carbon Dioxide 28 mmol/L (22-30); Chloride 102 mmol/L (98-107); Cholesterol 143 mg/dL (<200); Glucose 102 mg/dL (74-99); HDL Cholesterol 47 mg/dL (40-60); LDL Cholesterol,Calculated 59 mg/dL (0-99); Sodium 138 mmol/L (137-145); Total Bilirubin 0.5 mg/dL (0.2-1.3); Total Protein 6.4 g/dL (6.3-8.2); Triglycerides 187 mg/dL (<150)
== END | disposition home or self-care (01) ==
LOC: LABWHC1 08:13
PROVIDERS: ATTEND Internal Medicine Interventional Cardiology
DX: E78.2 Mixed hyperlipidemia (principal)
CPT/HCPCS: 36415; 80053; 80061; 84443

== ENCOUNTER → 2017-06-23 | Outpatient (CLI) | payer MEDICARE ==
--- NOTE | 2017-06-23 10:11 | CT ---
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 CT DLP: 800 mGycm. Automated Exposure Control for Dose Reduction was Utilized. TECHNIQUE: CT scan of the cervical spine is obtained without contrast, axial images are obtained, sa gittal and coronal reformatted images are also reviewed. FINDINGS: Cervical spine is visualized in its entirety from C1 through upper thoracic levels, redemon strates levoconvex scoliotic curvature centered in the upper thoracic spine without evidence of acute fracture or dislocation. Prevertebral soft tissue appears within normal limits. The C1-C2 articula tion redemonstrates left lateral recess narrowing. There is marked narrowing of the atlantodental int erval. There is persistent lytic area involving the posterior mid C2 vertebra sagittal image 23 that is stable. Given stability of this area it is favored benign. Vertebral body heights are maintained. There is multilevel disc space narrowing that is moderate at C 3-C4 level and moderate to advanced with vacuum disc phenomenon at C5-C6 and C6-C7 levels. There is m ild to moderate multilevel anterior and lateral spurring. No large posterior disc herniations are pre sent on sagittal images. Review of axial images at C2-C3 level shows uncovertebral facet degenerative changes bilaterally cont ributing to mild left greater than right neural foraminal narrowing. No significant change from prior study is seen. Axial images at C3-C4 level show posterior spurring and uncovertebral facet degenerative changes bila terally contributing to moderate to advanced bilateral neural foraminal narrowing. Findings stable fr om prior. Axial images at C4-C5 level show posterior spur disc complex effacing anterior thecal sac and uncover tebral facet arthropathy causing mild left-sided neural foraminal narrowing. Right-sided neural essie en is patent. Findings stable from prior. Axial images at C5-C6 level show uncovertebral facet degenerative changes and posterior spur disc com plex, there is effacement of anterior thecal sac and mild to moderate left greater than right neural foraminal narrowing redemonstrated. No significant change from prior. Axial images at C6-C7 level show posterior and marginal spurring causing mild to moderate right-sided neural foraminal narrowing. Left-sided neural foramen is patent. No significant change from prior. Axial images at C7-T1 level are felt to appear within normal limits. Left thyroid lobe is not visualized and presumed surgically absent. There is heterogeneous slightly p rominent from the right thyroid lobe redemonstrated. There is emphysematous change in lung apices with blebs and scarring. There is partial visualization of pacemaker wires in the left brachiocephalic vein. There is prominence of visualized aorta suggesti ng underlying aneurysm redemonstrated. IMPRESSION: There are multilevel degenerative changes in cervical spine as detailed above without sig nificant change from prior CT.
== END | disposition home or self-care (01) ==
LOC: RADCTMAIN 09:19
PROVIDERS: ATTEND Physical Medicine & Rehabilitation
DX: M48.061 Spinal stenosis, lumbar region without neurogenic claudication (principal); M99.73 Connective tissue and disc stenosis of intervertebral foramina of lumbar region; M47.812 Spondylosis without myelopathy or radiculopathy, cervical region; M46.96 Unspecified inflammatory spondylopathy, lumbar region
CPT/HCPCS: 72125

== ENCOUNTER → 2017-08-24 | Outpatient (CLI) | payer MEDICARE ==
[2017-08-24 09:54] LABS: Albumin 3.6 g/dL (3.5-5.0); Calcium 9.1 mg/dL (8.4-10.2); Total Bilirubin 0.4 mg/dL (0.2-1.3)
[2017-08-24 10:09] LABS: Potassium 4.9 mmol/L (3.5-5.1)
== END ==
LOC: LABWHC1 09:01
PROVIDERS: ATTEND Internal Medicine Interventional Cardiology
DX: E78.2 Mixed hyperlipidemia (principal)
CPT/HCPCS: 36415; 80053; 80061

== ENCOUNTER 2017-11-16 02:42 | Inpatient (IN) | payer MEDICARE ==
--- NOTE | 2017-11-16 03:19 | ED ---
Fall HPI <South Russ - Last Filed: 11/16/17 06:19> - General Source: patient, family, EMS, RN notes reviewed Mode of arrival: EMS Limitations: no limitations <Roz Prince - Last Filed: 11/18/17 23:21> - General Chief Complaint: Fall Stated Complaint: FALL Time Seen by Provider: 11/16/17 02:47 - History of Present Illness Initial Comments: This is an 82-year-old male who presents to the emergency department with chief complaint of the fall injury. Patient states at approximately 12:45 this morning he was having difficulty sleeping due to acute back pain. Patient denies ever experiencing this back pain in the past. Patient states that he got out of bed to go sleep in his recliner because he was uncomfortable. He states that he felt nauseous and went to the bathroom. He became dizzy and lightheaded which caused him to fall. Patient struck his forehead and left shoulder on the door frame. Patient is currently on Plavix. Patient denies any neck or back pain at this time. He denies any headache but does state that he still feels lightheaded. Patient states that his back pain has now migrated to his abdomen. He reports a dull ache in his right upper quadrant. He also reports nausea. Denies vomiting, diarrhea, fevers or chills, chest pain or shortness of breath. He denies any other injuries or trauma. (Roz Prince) - Related Data Home Medications Medication Instructions Recorded Confirmed Nitroglycerin Sl Tabs [Nitrostat] 0.4 mg SUBLINGUAL Q5M PRN 02/12/14 11/16/17 Clopidogrel [Plavix] 75 mg PO DAILY 03/29/14 11/16/17 Metoprolol Tartrate [Lopressor] 25 mg PO BID 02/28/16 11/16/17 Lisinopril [Zestril] 5 mg PO BID 11/24/16 11/16/17 Cetirizine HCl [Zyrtec] 10 mg PO DAILY 12/03/16 11/16/17 Fluticasone Nasal [place] [Flonase 1 spray EA NOSTRIL DAILY 12/03/16 11/16/17 Nasal [place]] Spironolactone [Aldactone] 12.5 mg PO DAILY 12/03/16 11/16/17 Acetaminophen Tab [Tylenol Tab] 325 mg PO Q6H 11/16/17 11/16/17 Aspirin [Adult Low Dose Aspirin EC] 81 mg PO DAILY 11/16/17 11/16/17 Clopidogrel Bisulfate [Plavix] 75 mg PO DAILY 11/16/17 11/16/17 Vit A/Vit C/Vit E/Zinc/Copper 1 cap PO DAILY 11/16/17 11/16/17 [ICAPS SOFTGEL] Previous Rx's Medication Instructions Recorded Atorvastatin [Lipitor] 80 mg PO HS #30 tab 11/20/13 Omeprazole [PriLOSEC] 20 mg PO AC-BRKFST #30 capsule. 11/20/13 Amiodarone [Cordarone] 200 mg PO DAILY tab 11/18/17 Allergies Allergy/AdvReac Type Severity Reaction Status Date / Time amlodipine besylate Allergy Rash/Hives Verified 11/16/17 08:38 [From Norvasc] isosorbide [From Imdur] Allergy Unknown Verified 11/16/17 08:38 Latex, Natural Rubber Allergy Rash/Hives Verified 11/16/17 08:38 Review of Systems ROS Other: All systems not noted in ROS Statement are negative. <South Russ - Last Filed: 11/16/17 06:19> ROS Other: All systems not noted in ROS Statement are negative. <Roz Prince - Last Filed: 11/18/17 23:21> ROS Statement: Those systems with pertinent positive or pertinent negative responses have been documented in the HPI. Past Medical History Past Medical History: Coronary Artery Disease (CAD), Heart Failure, Eye Disorder , GERD/Reflux, GI Bleed, Hyperlipidemia, Hypertension, Myocardial Infarction (AR ), Osteoarthritis (OA), Prostate Disorder, Thyroid Disorder Additional Past Medical History / Comment(s): cardiomyopathy, DENGENERATIVE ARTHRITIS, MACULAR DEGENERATION AND CATARACTS,GI BLEED 2011, fall 11-24-16/ facial inj/bruing/broken front teeth. Last Myocardial Infarction Date:: 1993 History of Any Multi-Drug Resistant Organisms: None Reported Past Surgical History: Adenoidectomy, AICD, Appendectomy, Heart Catheterization , Heart Catheterization With Stent, Joint Replacement, Orthopedic Surgery, Tonsillectomy Additional Past Surgical History / Comment(s): AICD, DFT 04/02/14, TOTAL LT/RT KNEE ARTHROPLASTY, bilateral CATARACTS, bilateral carpal tunnel releases, PARTIAL THYROIDECTOMY due to nodules, trigger fingers. Past Anesthesia/Blood Transfusion Reactions: No Reported Reaction Additional Past Anesthesia/Blood Transfusion Reaction / Comment(s): wakes up during surgery Date of Last Stent Placement:: 1993 Type of Cardiac Device: AICD Device Placement Date:: 2013 Past Psychological History: No Psychological Hx Reported Smoking Status: Former smoker Past Alcohol Use History: None Reported Past Drug Use History: None Reported - Past Family History Son(s) Family Medical History: No Reported History Father Family Medical History: Cancer, Coronary Artery Disease (CAD), CVA/TIA, Diabetes Mellitus Additional Family Medical History / Comment(s): CAROTID ARTERY BLOCKAGE.SX IN 1988 Mother Family Medical History: Unable to Obtain Additional Family Medical History / Comment(s): AT AGE 89- UNK HX Daughter(s) Family Medical History: Cancer (Patient has 2 adopted daughters and he has been under a lot of stress with his adopted daughter whom her left taking her cars with him.) BROTHER Family Medical History: Cancer Additional Family Medical History / Comment(s): BONE, PANCREATIC <Roz Prince - Last Filed: 11/18/17 23:21> General Exam <South Russ - Last Filed: 11/16/17 06:19> Limitations: no limitations <Roz Prince - Last Filed: 11/18/17 23:21> - General Exam Comments Initial Comments: General: Awake and alert, well-developed; in no apparent distress. HEENT: Circular contusion, measuring approximately 3 cm in diameter mid forehead. Pupils are equal, round and reactive to light. Extraocular movements intact. Oropharynx moist without erythema or exudate. Neck: Supple. Normal ROM. Cardiovascular: Regular rate and rhythm. No murmurs, rubs or gallops. Chest symmetrical. Respiratory: Lungs clear to auscultation bilaterally. No wheezes, rales or rhonchi. Normal respiratory effort with no use of accessory muscles. Abdomen: Soft, distended. Mild tenderness on palpation of right upper quadrant. No rigidity, rebound or guarding. Normal bowel sounds in all 4 quadrants. Musculoskeletal: Normal ROM, no tenderness, strength 5/5 bilateral upper and lower extremities. Skin: [place], warm and dry. Contusion to the left shoulder. Neurological: Alert and oriented x3. CN II-XII grossly intact. Speech is fluent and answers are appropriate. No focal neuro deficits. Psychiatric: Normal mood and affect. No overt signs of depression or anxiety noted. (Roz Prince) Course <[place] Russ - Last Filed: 11/16/17 06:19> <Roz Prince - Last Filed: 11/18/17 23:21> Vital Signs 11/16/17 11/16/17 11/16/17 02:44 05:09 05:44 Temperature 97.0 F L Pulse Rate 60 72 74 Respiratory 16 18 18 Rate Blood Pressure 170/79 180/73 161/70 O2 Sat by Pulse 97 98 95 Oximetry - Reevaluation(s) Reevaluation #1: At this time, case is signed out to attending physician, Dr. Russ. 11/16/17 04:48 (Roz Prince) Medical Decision Making - Lab Data Result diagrams: 11/16/17 03:16 11/16/17 03:16 <South Russ - Last Filed: 11/16/17 06:19> - Lab Data Result diagrams: 11/18/17 07:43 11/18/17 07:43 <Roz Prince - Last Filed: 11/18/17 23:21> - Medical Decision Making I saw this patient in conjunction with the physician assistant service manager. I performed independent history and physical exam. Agree with case management. Case discussed with , who will come and see the patient. (South Russ) This is an 82-year-old male who presents to the emergency department with chief complaint of fall. Patient reports he was unable to sleep this evening due to acute back pain. He states that the pain has now migrated to his abdomen. He states he became nauseous and dizzy which caused him to fall, striking his head and left shoulder on the door frame in his bathroom. Patient denies loss of consciousness. He is currently on Plavix. There is tenderness on palpation of the right upper quadrant. There are superficial contusions to the mid forehead and the left shoulder. Patient has normal ROM and no tenderness to bilateral upper and lower extremities. CBC, CMP, UA and coags are completely unremarkable. Troponin is negative. EKG is consistent with previous EKG studies. Amylase is 593 and lipase 10,234. Patient denies a history of pancreatitis. Patient is sent for a computed tomography scan with IV contrast. Patient complains of an increase in his abdominal pain. He is given morphine and Zofran. He did have one episode of vomiting. Computed tomography scan of the abdomen and pelvis with IV contrast revealed evidence for acute cholecystitis and acute pancreatitis. (Roz Prince) - Lab Data Lab Results 11/16/17 11/16/17 11/16/17 Range/Units 03:16 03:16 03:16 WBC 9.8 (3.8-10.6) k/uL RBC 4.65 (4.30-5.90) m/uL Hgb 14.6 (13.0-17.5) gm/dL Hct 45.4 (39.0-53.0) % MCV 97.7 (80.0-100.0) fL MCH 31.3 (25.0-35.0) pg MCHC 32.0 (31.0-37.0) g/dL RDW 12.9 (11.5-15.5) % Plt Count 194 (150-450) k/uL Neutrophils % 70 % Lymphocytes % 17 % Monocytes % 4 % Eosinophils % 7 % Basophils % 1 % Neutrophils # 6.9 (1.3-7.7) k/uL Lymphocytes # 1.6 (1.0-4.8) k/uL Monocytes # 0.4 (0-1.0) k/uL Eosinophils # 0.6 (0-0.7) k/uL Basophils # 0.1 (0-0.2) k/uL PT (9.0-12.0) sec INR (<1.2) APTT (22.0-30.0) sec Sodium 135 L (137-145) mmol/L Potassium 4.1 (3.5-5.1) mmol/L Chloride 103 (98-107) mmol/L Carbon Dioxide 24 (22-30) mmol/L Anion Gap 8 mmol/L BUN 26 H (9-20) mg/dL Creatinine 1.18 (0.66-1.25) mg/dL Est GFR (CKD-EPI)AfAm 66 (>60 ml/min/1.73 sqM) Est GFR (CKD-EPI)NonAf 57 (>60 ml/min/1.73 sqM) Glucose 116 H (74-99) mg/dL Calcium 9.4 (8.4-10.2) mg/dL Total Bilirubin 0.7 (0.2-1.3) mg/dL AST 54 (17-59) U/L ALT 39 (21-72) U/L Alkaline Phosphatase 140 H (38-126) U/L Troponin I (0.000-0.034) ng/mL Total Protein 6.1 L (6.3-8.2) g/dL Albumin 3.5 (3.5-5.0) g/dL Amylase 593 H* (30-110) U/L Lipase 10519 H (23-300) U/L Urine Color Yellow Urine Appearance Clear (Clear) Urine pH 5.0 (5.0-8.0) Ur Specific [place] 1.012 (1.001-1.035) Urine Protein Negative (Negative) Urine Glucose (UA) Negative (Negative) Urine Ketones Negative (Negative) Urine Blood Negative (Negative) Urine Nitrite Negative (Negative) Urine Bilirubin Negative (Negative) Urine Urobilinogen <2.0 (<2.0) mg/dL Ur Leukocyte Esterase Negative (Negative) 11/16/17 11/16/17 Range/Units 03:16 03:16 WBC (3.8-10.6) k/uL RBC (4.30-5.90) m/uL Hgb (13.0-17.5) gm/dL Hct (39.0-53.0) % MCV (80.0-100.0) fL MCH (25.0-35.0) pg MCHC (31.0-37.0) g/dL RDW (11.5-15.5) % Plt Count (150-450) k/uL Neutrophils % % Lymphocytes % % Monocytes % % Eosinophils % % Basophils % % Neutrophils # (1.3-7.7) k/uL Lymphocytes # (1.0-4.8) k/uL Monocytes # (0-1.0) k/uL Eosinophils # (0-0.7) k/uL Basophils # (0-0.2) k/uL PT 10.7 (9.0-12.0) sec INR 1.1 (<1.2) APTT 22.8 (22.0-30.0) sec Sodium (137-145) mmol/L Potassium (3.5-5.1) mmol/L Chloride (98-107) mmol/L Carbon Dioxide (22-30) mmol/L Anion Gap mmol/L BUN (9-20) mg/dL Creatinine (0.66-1.25) mg/dL Est GFR (CKD-EPI)AfAm (>60 ml/min/1.73 sqM) Est GFR (CKD-EPI)NonAf (>60 ml/min/1.73 sqM) Glucose (74-99) mg/dL Calcium (8.4-10.2) mg/dL Total Bilirubin (0.2-1.3) mg/dL AST (17-59) U/L ALT (21-72) U/L Alkaline Phosphatase (38-126) U/L Troponin I <0.012 (0.000-0.034) ng/mL Total Protein (6.3-8.2) g/dL Albumin (3.5-5.0) g/dL Amylase (30-110) U/L Lipase (23-300) U/L Urine Color Urine Appearance (Clear) Urine pH (5.0-8.0) Ur Specific [place] (1.001-1.035) Urine Protein (Negative) Urine Glucose (UA) (Negative) Urine Ketones (Negative) Urine Blood (Negative) Urine Nitrite (Negative) Urine Bilirubin (Negative) Urine Urobilinogen (<2.0) mg/dL Ur Leukocyte Esterase (Negative) - EKG Data EKG Comments: 3:18:12. Sinus bradycardia with first-degree AV block, left axis deviation, nonspecific intraventricular block. Ventricular rate 51 bpm, MS interval 210, QRS duration 130, QT/QTc 492/453. EKG compared to EKG on 12/03/2016. No significant changes are identified. (Roz Prince) Disposition Is patient prescribed a controlled substance at d/c from ED?: No <[place] Russ - Last Filed: 11/16/17 06:19> <Roz Prince - Last Filed: 11/18/17 23:21> Clinical Impression: Fall, Pancreatitis, Cholecystitis Disposition: ADMITTED IP TO THIS [facility] Condition: Fair
[2017-11-16] MEDS ORDERED: MORPHINE SULFATE 2 MG/ML SYRINGE IVP STA (03:21)
[2017-11-16 03:37] LABS: Basophils # (A) 0.1 k/uL (0-0.2); Basophils % (A) 1 %; Eosinophils # (A) 0.6 k/uL (0-0.7); Eosinophils % (A) 7 %; HCT 45.4 % (39.0-53.0); HGB 14.6 gm/dL (13.0-17.5); Lymphocytes # (A) 1.6 k/uL (1.0-4.8); Lymphocytes % (A) 17 %; MCH 31.3 pg (25.0-35.0); MCV 97.7 fL (80.0-100.0); Monocytes # (A) 0.4 k/uL (0-1.0); Monocytes % (A) 4 %; Neutrophils # (A) 6.9 k/uL (1.3-7.7); Neutrophils % (A) 70 %; Platelet Count 194 k/uL (150-450); RBC 4.65 m/uL (4.30-5.90); RDW 12.9 % (11.5-15.5); WBC 9.8 k/uL (3.8-10.6)
[2017-11-16 03:41] LABS: Appearance,Urine Clear (Clear); Bilirubin,Urine Negative (Negative); Blood,Urine Negative (Negative); Color,Urine Yellow; Glucose,Urine (UA) Negative (Negative); INR 1.1 (<1.2); Ketones,Urine Negative (Negative); Leukocyte Esterase,Urine Negative (Negative); Nitrite,Urine Negative (Negative); Partial Thromboplastin Time 22.8 sec (22.0-30.0); Protein,Urine Negative (Negative); Prothrombin Time 10.7 sec (9.0-12.0); Specific Gravity,Urine 1.012 (1.001-1.035); Urobilinogen,Urine <2.0 mg/dL (<2.0)
[2017-11-16 03:43] LABS: Albumin 3.5 g/dL (3.5-5.0); Calcium 9.4 mg/dL (8.4-10.2); Potassium 4.1 mmol/L (3.5-5.1); Total Bilirubin 0.7 mg/dL (0.2-1.3); Total Protein 6.1 g/dL (6.3-8.2)
[2017-11-16] MEDS ORDERED: ONDANSETRON 4 MG/2 ML VIAL IVP STA (04:19)
--- NOTE | 2017-11-16 04:59 | CT ---
EXAM: CT Head Without Intravenous Contrast CLINICAL HISTORY: head injury TECHNIQUE: Axial computed tomography images of the head/brain without intravenous contrast. This CT exam was performed using one or more of the following dose reduction techniques: automated exposure control, adjustment of the mA and/or kV according to patient size, and/or use of iterative reconstruction technique. COMPARISON: No relevant prior studies available. FINDINGS: Brain: No acute infarct, hemorrhage, mass or edema. Chronic small vessel ischemic disease and senescent changes. Ventricles: Unremarkable. No ventriculomegaly. Bones/joints: No acute osseous abnormality. Soft tissues: Mild soft tissue swelling over the left frontal scalp, likely posttraumatic. Sinuses: Mild mucosal thickening in the paranasal sinuses. Mastoid air cells: Unremarkable as visualized. No mastoid effusion. Orbits: Postsurgical changes within the globes. IMPRESSION: No acute intracranial abnormality.
--- NOTE | 2017-11-16 05:04 | CT ---
EXAM: CT Abdomen and Pelvis With Intravenous Contrast CLINICAL HISTORY: Back pain TECHNIQUE: Axial computed tomography images of the abdomen and pelvis with intravenous contrast. CTDI is twice and 0.80, 29.90 mGy and DLP is 2737. 20 mGy-cm. This CT exam was performed using one or more of the following dose reduction techniques: automated exposure control, adjustment of the mA and/or kV according to patient size, and/or use of iterative reconstruction technique. COMPARISON: No relevant prior studies available. FINDINGS: Lung bases: Bibasilar atelectasis and/or scarring. Heart: Calcifications in the coronary arteries. ABDOMEN: Liver: Unremarkable. Gallbladder and bile ducts: Gallbladder is distended with adjacent stranding suggesting acute cholecystitis. Pancreas: Mild stranding about the head and uncinate process of the pancreas. Query acute pancreatitis. Spleen: Unremarkable. Adrenals: Unremarkable. Kidneys and ureters: Cysts and nonobstructing calculi within both kidneys. No hydronephrosis. Stomach and bowel: Unremarkable. PELVIS: Appendix: Appendix is mildly dilated measuring up to 10 mm which is nonspecific. No adjacent stranding to suggest acute appendicitis. Bladder: Unremarkable. Reproductive: Unremarkable as visualized. ABDOMEN and PELVIS: Intraperitoneal space: Unremarkable. Bones/joints: No acute fracture. No dislocation. Soft tissues: Unremarkable. Vasculature: Unremarkable. No abdominal aortic aneurysm. Lymph nodes: Unremarkable. Tubes, lines and devices: Cardiac pacemaker is noted. IMPRESSION: 1. Gallbladder is distended with adjacent stranding suggesting acute cholecystitis. 2. Mild stranding about the head and uncinate process of the pancreas. Query acute pancreatitis. 3. Cysts and nonobstructing calculi within both kidneys. No hydronephrosis.
[2017-11-16] MEDS ORDERED: ONDANSETRON 4 MG/2 ML VIAL IVP PRN (05:42)
[2017-11-16] MEDS ORDERED: NALOXONE 0.4 MG/ML 1 ML VIAL IV PRN (05:42)
[2017-11-16] MEDS ORDERED: SODIUM CHLORIDE 0.9% 1,000 ML IV SCH (05:45)
[2017-11-16] MEDS ORDERED: HYDROmorphone 1 MG/ML 1 ML SYRINGE IVP STA (06:10)
[2017-11-16] MEDS ORDERED: AMPICILLIN-SULBACTAM 3 GM in SODIUM CHLORIDE 0.9% 100 ML IVPB STA (06:11)
[2017-11-16] MEDS: SODIUM CHLORIDE 0.9% 500 ML 500 ML IV STA ×2 (07:39→08:23)
[2017-11-16] MEDS ORDERED: INFLUENZA VACCINE (6 MOS+) 60 MCG/0.5 ML SYRINGE IM ONE (07:55)
[2017-11-16] MEDS ORDERED: ENALAPRILAT 1.25 MG/ML 1 ML VIAL IVP PRN (08:15)
[2017-11-16] MEDS: METOCLOPRAMIDE 5 MG/ML 2 ML VIAL IVP PRN (08:20)
[2017-11-16] MEDS ORDERED: NITROGLYCERIN SL TABS 0.4 MG TAB SUBLINGUAL PRN (08:48)
[2017-11-16] MEDS: ONDANSETRON 4 MG/2 ML VIAL IVP PRN (08:48)
--- NOTE | 2017-11-16 09:57 | P.CONS ---
History of Present Illness - Reason for Consult Consult date: 11/16/17 Pancreatitis Requesting physician: Lloyd Morales - Chief Complaint Status post fall back pain - History of Present Illness 82-year-old gentleman past medical history CAD cardiac arrest, ischemic cardiomyopathy, AICD, congestive heart failure peptic ulcer disease arrhythmia. admitted with chief complaint of fall with abdominal and back pain associated lightheadedness dizziness. Admission lipase 10,234. Amylase 593. Abdominal pain started around 1 AM this morning in the upper abdomen. No history of this type of pain. Consult requested for pancreatitis evaluation. Total bilirubin 0.7. AST 54. ALT 39. AP 140. White count 9.8. Hemoglobin 14.6. INR 1.1. Platelet 194. BUN 20 6P recurrent 1.1. Triglycerides in August 2017 was 181. No history of pancreatitis. No history of alcoholism. CT brain no acute intracranial of normality. CT abdomen and pelvis reported gallbladder distended with adjacent stranding suggesting acute cholecystitis with mild stranding about the head and uncinate process pancreas. Liver unremarkable. No mentioning of CBD measurement or biliary ductal dilation. Review of Systems Constitutional: Denies fever, chills, sweats, weight gain, or loss. Admitted with lightheadedness dizziness fall. HEENT: Negative for migraines, blurred vision or loss, earaches, drainage, tinnitus, oral mucosal lesions, dysphagia, or odynophagia. Cardiac: Negative for chest pain, arrhythmias, or palpitation. Respiratory: Negative for shortness of breath, hemoptysis, cough, or sputum production. Gastrointestinal: See HPI for pertinent findings. Genitourinary: Negative for hematuria, urgency, frequency, polyuria, dysuria, or penile discharge. Musculoskeletal: Negative for muscle aches, swelling, arthritis, and arthralgias. Neurologic: Negative for stroke or TIA. Endocrine: Negative for thyroid problems. Skin: Negative for rash or itching. Psychiatric: Negative history for depression and anxiety Past Medical History Past Medical History: Coronary Artery Disease (CAD), Heart Failure, Eye Disorder , GERD/Reflux, Hyperlipidemia, Hypertension, Myocardial Infarction (CO), Osteoarthritis (OA), Thyroid Disorder Additional Past Medical History / Comment(s): Past falls with injury, 2013 cardiac arrest, ischemic cardiomyopathy, Vfib/VT, AICD placed, chronic CHF, PUD , hypothyroid, degenerative arthritis. Last Myocardial Infarction Date:: 1993 History of Any Multi-Drug Resistant Organisms: None Reported Past Surgical History: Adenoidectomy, AICD, Appendectomy, Heart Catheterization , Heart Catheterization With Stent, Joint Replacement, Orthopedic Surgery, Tonsillectomy Additional Past Surgical History / Comment(s): AICD, DFTS, TOTAL LT/RT KNEE ARTHROPLASTY, bilateral CATARACTS, bilateral carpal tunnel releases, PARTIAL THYROIDECTOMY due to nodules, trigger fingers x 8, colonoscopies. Past Anesthesia/Blood Transfusion Reactions: No Reported Reaction Additional Past Anesthesia/Blood Transfusion Reaction / Comm: wakes up during surgery Date of Last Stent Placement:: 1993 Type of Cardiac Device: AICD Device Placement Date:: 2013 Smoking Status: Former smoker - Past Family History Son(s) Family Medical History: No Reported History Father Family Medical History: Cancer, Coronary Artery Disease (CAD), CVA/TIA, Diabetes Mellitus Additional Family Medical History / Comment(s): CAROTID ARTERY BLOCKAGE.SX IN 1988 Mother Family Medical History: Unable to Obtain Additional Family Medical History / Comment(s): AT AGE 89- UNK HX Daughter(s) Family Medical History: Cancer (Patient has 2 adopted daughters and he has been under a lot of stress with his adopted daughter whom her left taking her cars with him.) BROTHER Family Medical History: Cancer Additional Family Medical History / Comment(s): BONE, PANCREATIC Medications and Allergies Home Medications Medication Instructions Recorded Confirmed Type Atorvastatin [Lipitor] 80 mg PO HS #30 tab 11/20/13 11/16/17 Rx Omeprazole [PriLOSEC] 20 mg PO AC-BRKFST #30 capsule. 11/20/13 11/16/17 Rx Nitroglycerin Sl Tabs [Nitrostat] 0.4 mg SUBLINGUAL Q5M PRN 02/12/14 11/16/17 History Clopidogrel [Plavix] 75 mg PO DAILY 03/29/14 11/16/17 History Metoprolol Tartrate [Lopressor] 25 mg PO BID 02/28/16 11/16/17 History Lisinopril [Zestril] 5 mg PO BID 11/24/16 11/16/17 History Cetirizine HCl [Zyrtec] 10 mg PO DAILY 12/03/16 11/16/17 History Fluticasone Nasal [place] [Flonase 1 spray EA NOSTRIL DAILY 12/03/16 11/16/17 History Nasal [place]] Spironolactone [Aldactone] 12.5 mg PO DAILY 12/03/16 11/16/17 History Acetaminophen Tab [Tylenol Tab] 325 mg PO Q6H 11/16/17 11/16/17 History Amiodarone [Cordarone] 200 mg PO BID 11/16/17 11/16/17 History Aspirin [Adult Low Dose Aspirin EC] 81 mg PO DAILY 11/16/17 11/16/17 History Clopidogrel Bisulfate [Plavix] 75 mg PO DAILY 11/16/17 11/16/17 History Vit A/Vit C/Vit E/Zinc/Copper 1 cap PO DAILY 11/16/17 11/16/17 History [ICAPS SOFTGEL] Allergies Allergy/AdvReac Type Severity Reaction Status Date / Time amlodipine besylate Allergy Rash/Hives Verified 11/16/17 08:38 [From Norvasc] isosorbide [From Imdur] Allergy Unknown Verified 11/16/17 08:38 Latex, Natural Rubber Allergy Rash/Hives Verified 11/16/17 08:38 Physical Exam Vitals: Vital Signs Temp Pulse Pulse Resp BP BP Pulse Ox 11/16/17 08:44 98.0 F 11/16/17 08:43 100 165/89 11/16/17 08:05 112 H 207/137 11/16/17 07:40 78 11/16/17 07:05 151/84 11/16/17 05:44 74 18 161/70 95 11/16/17 05:09 72 18 180/73 98 11/16/17 02:44 97.0 F L 60 16 170/79 97 Intake and Output 11/15/17 11/16/17 11/16/17 22:59 06:59 14:59 Other: Voiding Method Toilet Urinal Weight 94.347 kg General appearance: The patient is alert, oriented, in no acute distress. HET: Head is normocephalic and atraumatic. Pupils are equal and reactive. Oropharynx is clear without lesions. Neck: Supple without lymphadenopathy. Trachea midline. Heart: S1 S2. Regular rate and rhythm. Lungs: No crackles or wheezes are heard. Abdomen: Soft, nontender, nondistended with bowel sounds. No peritoneal signs. No palpable organomegaly or masses. Extremities: Normal skin color and turgor. No cyanosis, rash, ulceration, clubbing, or edema. Radial and pedal pulses are 2/4 bilaterally. Neurological: No focal deficits. Strength and sensation are grossly intact. Results CBC & Chem 7: 11/16/17 03:16 11/16/17 03:16 Labs: Abnormal Lab Results - Last 24 Hours (Table) 11/16/17 Range/Units 03:16 Sodium 135 L (137-145) mmol/L BUN 26 H (9-20) mg/dL Glucose 116 H (74-99) mg/dL Alkaline Phosphatase 140 H (38-126) U/L Total Protein 6.1 L (6.3-8.2) g/dL Amylase 593 H* (30-110) U/L Lipase 63778 H (23-300) U/L CT scan - abdomen: report reviewed (Dr. Huber) CT Scan - head: report reviewed (Dr. Huber) CT scan - pelvis: report reviewed (Dr. Huber) Assessment and Plan (1) Pancreatitis Narrative/Plan: 82-year-old male with no history of pancreatitis admitted status post fall back pain with elevated amylase lipase consistent with acute pancreatitis etiology is unclear possible biliary pancreatitis. CT imaging reported mild stranding about the head and uncinate process of the pancreas, distended gallbladder with adjacent stranding suggesting acute acalculous cholecystitis. Current Visit: Yes Status: Acute Code(s): K85.90 - ACUTE PANCREATITIS WITHOUT NECROSIS OR INFECTION, UNSP SNOMED Code(s): 23390119 Plan: 1. Nothing by mouth. Protonix 40 mg IV daily. Daily monitoring of amylase lipase CMP CBC. 2. General surgical consult. Ultrasound abdomen evaluate for cholelithiasis. 3. Will follow closely with you. Thank you for this kind referral and the opportunity to participate in the care of your patient. This consultation was discussed with Dr. Huber. The impression and plan of care have been directed as dictated.
[2017-11-16] MEDS ORDERED: ASPIRIN 81 MG PO SCH (10:00)
[2017-11-16] MEDS: FLUTICASONE 50MCG/SPRAY NASAL 16GM EA NOSTRIL SCH (11:13)
[2017-11-16] MEDS: PANTOPRAZOLE 40 MG/10 ML VIAL IVP SCH (11:13)
[2017-11-16] MEDS: AMPICILLIN-SULBACTAM 3 GM in SODIUM CHLORIDE 0.9% 100 ML IVPB SCH ×2 (11:16→17:36)
--- NOTE | 2017-11-16 12:55 | ECHOF ---
Referral Reason:LVF MEASUREMENTS -------- HEIGHT: 182.9 cm WEIGHT: 94.3 kg BP: MV E Mikie: 0.78 m/s MV DecT: 143 ms MV A Mikie: 0.44 m/s MV E/A Ratio: 1.76 FINDINGS -------- Sinus rhythm. This was a technically difficult study with suboptimal views. Limited Study Overall left ventricular systolic function is severely impaired with, an EF between 25 - 30 %. Mid anterior LV wall motion is akinetic. Mid anteroseptal LV wall motion is akinetic. Apical anteri or LV wall motion is akinetic. Apical inferior LV wall motion is akinetic. Apical septum LV wal l motion is akinetic. The RV was not well visualized. The left atrium was not well visualized. The right atrium was not well visualized. Lumason used The aortic valve was not well visualized. The mitral valve was not well visualized. The tricuspid valve was not well visualized. The pulmonic valve was not well visualized. There is no pericardial effusion. CONCLUSIONS -------- 1. Sinus rhythm. 2. This was a technically difficult study with suboptimal views. 3. Limited Study 4. Overall left ventricular systolic function is severely impaired with, an EF between 25 - 30 %. 5. Mid anterior LV wall motion is akinetic. 6. Mid anteroseptal LV wall motion is akinetic. 7. Apical anterior LV wall motion is akinetic. 8. Apical inferior LV wall motion is akinetic. 9. Apical septum LV wall motion is akinetic. 10. The RV was not well visualized. 11. The left atrium was not well visualized. 12. Lumason used 13. The aortic valve was not well visualized. 14. The mitral valve was not well visualized. 15. The tricuspid valve was not well visualized. 16. The pulmonic valve was not well visualized. 17. There is no pericardial effusion. DUSTING AND BRUSHING MACHINE OPERATOR: Vanessa Turner RDCS
[2017-11-16] MEDS: LISINOPRIL 5 MG TAB PO SCH ×2 (13:01→23:10)
[2017-11-16] MEDS: SPIRONOLACTONE 25 MG TAB PO SCH (13:09)
[2017-11-16] MEDS: METOPROLOL TARTRATE 25 MG TAB PO SCH ×2 (13:09→23:10)
[2017-11-16] MEDS: AMIODARONE 200 MG TAB PO SCH ×2 (13:09→21:32)
[2017-11-16] MEDS: SODIUM CHLORIDE 0.9% 1,000 ML IV SCH (13:09)
--- NOTE | 2017-11-16 13:15 | US ---
EXAMINATION TYPE: US abdomen limited DATE OF EXAM: 11/16/2017 COMPARISON: CT CLINICAL HISTORY: pancreatitis. Abnormal CT, ABD pain EXAM MEASUREMENTS: Liver Length: 20.0 cm Gallbladder Wall: 0.6 cm CBD: 0.4 cm Right Kidney: 14.7 x 4.9 x 4.5 cm Pancreas: Obscured by bowel gas Liver: Left lobe obscured by overlying bowel gas, enlarged, limited visualization Gallbladder: Possible sludge near neck, wall thickened with probable pericholecystic fluid Evidence for sonographic Casas's sign: No CBD: wnl Right Kidney: Cyst lower pole= 6.0 x 5.4 x 5.4 cm No evident ascites. Right kidney shows normal cortical medullary differentiation. IMPRESSION: Exam is limited. Findings suggest cholecystitis.
--- NOTE | 2017-11-16 13:35 | P.GSCN ---
History of Present Illness Consult date: 11/16/17 Reason for Consult: Right upper quadrant abdominal pain History of present illness: 82-year-old male being seen at the request of the attending for a surgical eval after a CT of the abdomen and pelvis imaging. Report reviewed mild stranding about the head and uncinate process of the pancreas, distended gallbladder with adjacent stranding suggesting acute acalculous cholecystitis. [place] on admission [id number], amylase 593. Troponins were negative. Patient reports he no recall of being treated in the past for pancreatitis Patient initially presented to emergency room after patient had fallen. He states that he became nauseated and dizzy which caused him to fall he struck his head and left shoulder on the door frame of his bathroom. He did not lose consciousness. Patient is on Plavix. The daughter at the bedside indicated the patient did receive Plavix yesterday. When questioning patient why he is on Plavix he states he doesn't really know. Cardiology consultation has been requested Patient reports that he has been having episodes of right upper quadrant abdominal pain which started in the morning around 1:00 reports no nausea no vomiting Patient has a past medical history of coronary artery disease, heart failure, eye disorder, esophageal reflux, GI bleed, hyperlipidemia, hypertension, osteoarthritis, past surgical history of an AICD, appendectomy, coronary stent, joint replacement Review of Systems Difficult to obtain patient has poor past history recall Past Medical History Past Medical History: Coronary Artery Disease (CAD), Heart Failure, Eye Disorder , GERD/Reflux, Hyperlipidemia, Hypertension, Myocardial Infarction (CT), Osteoarthritis (OA), Thyroid Disorder Additional Past Medical History / Comment(s): Past falls with injury, 2013 cardiac arrest, ischemic cardiomyopathy, Vfib/VT, AICD placed, chronic CHF, PUD , hypothyroid, degenerative arthritis. Last Myocardial Infarction Date:: 1993 History of Any Multi-Drug Resistant Organisms: None Reported Past Surgical History: Adenoidectomy, AICD, Appendectomy, Heart Catheterization , Heart Catheterization With Stent, Joint Replacement, Orthopedic Surgery, Tonsillectomy Additional Past Surgical History / Comment(s): AICD, DFTS, TOTAL LT/RT KNEE ARTHROPLASTY, bilateral CATARACTS, bilateral carpal tunnel releases, PARTIAL THYROIDECTOMY due to nodules, trigger fingers x 8, colonoscopies. Past Anesthesia/Blood Transfusion Reactions: No Reported Reaction Additional Past Anesthesia/Blood Transfusion Reaction / Comm: wakes up during surgery Date of Last Stent Placement:: 1993 Type of Cardiac Device: AICD Device Placement Date:: 2013 Smoking Status: Former smoker - Past Family History Son(s) Family Medical History: No Reported History Father Family Medical History: Cancer, Coronary Artery Disease (CAD), CVA/TIA, Diabetes Mellitus Additional Family Medical History / Comment(s): CAROTID ARTERY BLOCKAGE.SX IN 1988 Mother Family Medical History: Unable to Obtain Additional Family Medical History / Comment(s): AT AGE 89- UNK HX Daughter(s) Family Medical History: Cancer (Patient has 2 adopted daughters and he has been under a lot of stress with his adopted daughter whom her left taking her cars with him.) BROTHER Family Medical History: Cancer Additional Family Medical History / Comment(s): BONE, PANCREATIC Medications and Allergies Home Medications Medication Instructions Recorded Confirmed Type Atorvastatin [Lipitor] 80 mg PO HS #30 tab 11/20/13 11/16/17 Rx Omeprazole [PriLOSEC] 20 mg PO AC-BRKFST #30 capsule.dr 11/20/13 11/16/17 Rx Nitroglycerin Sl Tabs [Nitrostat] 0.4 mg SUBLINGUAL Q5M PRN 02/12/14 11/16/17 History Clopidogrel [Plavix] 75 mg PO DAILY 03/29/14 11/16/17 History Metoprolol Tartrate [Lopressor] 25 mg PO BID 02/28/16 11/16/17 History Lisinopril [Zestril] 5 mg PO BID 11/24/16 11/16/17 History Cetirizine HCl [Zyrtec] 10 mg PO DAILY 12/03/16 11/16/17 History Fluticasone Nasal [place] [Flonase 1 spray EA NOSTRIL DAILY 12/03/16 11/16/17 History Nasal [place]] Spironolactone [Aldactone] 12.5 mg PO DAILY 12/03/16 11/16/17 History Acetaminophen Tab [Tylenol Tab] 325 mg PO Q6H 11/16/17 11/16/17 History Amiodarone [Cordarone] 200 mg PO BID 11/16/17 11/16/17 History Aspirin [Adult Low Dose Aspirin EC] 81 mg PO DAILY 11/16/17 11/16/17 History Clopidogrel Bisulfate [Plavix] 75 mg PO DAILY 11/16/17 11/16/17 History Vit A/Vit C/Vit E/Zinc/Copper 1 cap PO DAILY 11/16/17 11/16/17 History [ICAPS SOFTGEL] Allergies Allergy/AdvReac Type Severity Reaction Status Date / Time amlodipine besylate Allergy Rash/Hives Verified 11/16/17 08:38 [From Norvasc] isosorbide [From Imdur] Allergy Unknown Verified 11/16/17 08:38 Latex, Natural Rubber Allergy Rash/Hives Verified 11/16/17 08:38 Surgical - Exam Vital Signs Temp Pulse Resp BP Pulse Ox 97.0 F L 60 16 170/79 97 11/16/17 02:44 11/16/17 02:44 11/16/17 02:44 11/16/17 02:44 11/16/17 02:44 GENERAL APPEARANCE: 82-year-old male patient is alert, oriented, to self and place in no acute distress. Currently denying any dizziness lightheadedness chest pain or shortness of breath when questioning VITAL SIGNS: Reviewed HEENT: Head is normocephalic and atraumatic. Pupils are equal and reactive. The nares are patent. Oropharynx is clear without lesions. NECK: Supple without lymphadenopathy. Traches midline. HEART: S1, S2. Regular rate and rhythm. No murmur noted denying chest pain when questioning LUNGS: No crackles or wheezes are heard. On room air sats are 93% ABDOMEN: Soft, mild tenderness right upper quadrant nondistended with good bowel sounds. No peritoneal signs. No palpable organomegaly or masses. EXTREMITIES: Normal skin color and turgor. . Radial pedal pulses are 2/4 bilaterally. Contusion left shoulder with a circular contusion 3 cm in diameter mid forehead NEUROLOGICAL: No focal deficits. Strength and sensation are grossly intact. Results Impression Present on admission right upper quadrant abdominal pain with a CT abdomen and pelvis report gallbladder distended with adjacent stranding suggesting acute cholecystitis Present on admission elevated lipase pancreatitis unclear etiology Known coronary artery disease with prior coronary stenting on Plavix Cardiomyopathy with AICD Peptic ulcer disease Prior to admission fall did not lose consciousness stroke left forehead and left shoulder Plan Cardiology is recommending holding Plavix for 5 days before surgery Plavix on hold Repeat labs in the morning IV fluid for hydration 75 an hour Follow up on the ultrasound of the abdomen for eval cholelithiasis Schedule patient for surgery for a lap cholecystectomy timing defer to the surgeon Will follow closely with you Further surgical recommendations continue recommendations by cardiology and GI service DVT and GI prophylaxis Surgical consultation note dictated for Dr. terrazas The above impression and plan of care have been discussed and directed by signing physician. Glenny Lunsford nurse practitioner acting as scribe for signing physician. - Labs 11/16/17 03:16 11/16/17 03:16 Abnormal Lab Results - Last 24 Hours (Table) 11/16/17 11/16/17 Range/Units 03:16 09:20 Sodium 135 L (137-145) mmol/L BUN 26 H (9-20) mg/dL Glucose 116 H (74-99) mg/dL Plasma Lactic Acid Izaiah 2.3 H* (0.7-2.0) mmol/L Alkaline Phosphatase 140 H (38-126) U/L Total Protein 6.1 L (6.3-8.2) g/dL Amylase 593 H* (30-110) U/L Lipase 16374 H (23-300) U/L Diabetes panel 11/16/17 Range/Units 03:16 Sodium 135 L (137-145) mmol/L Potassium 4.1 (3.5-5.1) mmol/L Chloride 103 (98-107) mmol/L Carbon Dioxide 24 (22-30) mmol/L BUN 26 H (9-20) mg/dL Creatinine 1.18 (0.66-1.25) mg/dL Glucose 116 H (74-99) mg/dL Calcium 9.4 (8.4-10.2) mg/dL AST 54 (17-59) U/L ALT 39 (21-72) U/L Alkaline Phosphatase 140 H (38-126) U/L Total Protein 6.1 L (6.3-8.2) g/dL Albumin 3.5 (3.5-5.0) g/dL Calcium panel 11/16/17 Range/Units 03:16 Calcium 9.4 (8.4-10.2) mg/dL Albumin 3.5 (3.5-5.0) g/dL Pituitary panel 11/16/17 Range/Units 03:16 Sodium 135 L (137-145) mmol/L Potassium 4.1 (3.5-5.1) mmol/L Chloride 103 (98-107) mmol/L Carbon Dioxide 24 (22-30) mmol/L BUN 26 H (9-20) mg/dL Creatinine 1.18 (0.66-1.25) mg/dL Glucose 116 H (74-99) mg/dL Calcium 9.4 (8.4-10.2) mg/dL Adrenal panel 11/16/17 Range/Units 03:16 Sodium 135 L (137-145) mmol/L Potassium 4.1 (3.5-5.1) mmol/L Chloride 103 (98-107) mmol/L Carbon Dioxide 24 (22-30) mmol/L BUN 26 H (9-20) mg/dL Creatinine 1.18 (0.66-1.25) mg/dL Glucose 116 H (74-99) mg/dL Calcium 9.4 (8.4-10.2) mg/dL Total Bilirubin 0.7 (0.2-1.3) mg/dL AST 54 (17-59) U/L ALT 39 (21-72) U/L Alkaline Phosphatase 140 H (38-126) U/L Total Protein 6.1 L (6.3-8.2) g/dL Albumin 3.5 (3.5-5.0) g/dL
[2017-11-16] MEDS: MORPHINE SULFATE 4 MG/ML SYRINGE IV PRN (13:51)
--- NOTE | 2017-11-16 14:55 | P.CRDCN ---
History of Present Illness History of present illness: Mr. Carrillo is a pleasant 82-year-old male past medical history significant for coronary artery disease s/p stenting of mid-LAD 1993 x2, mid RCA and mid PLB 2001 and mid RCA, proxRCA 2013. He also has ischemic cardiomyopathy, chronic systolic heart failure, dyslipidemia, hypertension, hypothyroid, history of v-fib and permanent single chamber ICD in place. He follows with Dr. Kearns in the office. We have been asked to see him in consultation. He presented to the hospital last night with symptoms of acute onset of abdominal pain and fall. He apparently was in so much pain at home that he couldn't get comfortable in bed. He got up to the bathroom because he was starting to feel nauseated. He started to feel mildly lightheaded and fell into the door of his bathroom. He denies chest pain, shortness of breath or palpitations. Upon arrival to ED he was found to have significantly elevated lipase. CT of the abdomen reveals gallbladder distended with adjacent stranding suggestive of acute cholecystitis, mild stranding at the head of the pancreas suggestive of acute pancreatitis. He is seen and examined resting comfortably in bed with his granddaughter at the bedside. He has been seen in consultation by GI and surgical services. EKG reveals sinus bradycardia rate 51 with first degree AVB and poor R-wave progression. No acute abnormalities. Laboratory data reviewed, hemoglobin 14.6, platelets 194, sodium 135, potassium 4.1, creatinine 1.18, lactic acid 2. 3 repeat 1.5, lipase 10,234, amylase 593, cardiac enzymes negative 1. Current cardiac medications include amiodarone 200 mg twice a day, aspirin 81 mg daily, atorvastatin 80 mg daily, Plavix 75 mg daily, lisinopril 5 mg twice a day, Lopressor 25 mg twice a day and Aldactone 12.5 mg daily. Echocardiogram obtained reveals severely impaired left ventricular systolic function with ejection fraction 25-30% valves not well visualized. Previous echo obtained in the office from October 2016 reveals evidence of mild aortic regurgitation and mild mitral regurgitation. Review of Systems At the time of my exam: CONSTITUTIONAL: Denies fever. Denies chills. EYES: Denies blurred vision. Denies vision changes. Denies eye pain. EARS, NOSE, MOUTH & THROAT: Denies headache. Denies sore throat. Denies ear pain. CARDIOVASCULAR: Denies chest pain. Denies shortness of breath. Denies orthopnea. Denies PND. Denies palpitations. RESPIRATORY: Denies cough. GASTROINTESTINAL: Complains of abdominal pain. Denies diarrhea. Denies constipation. Complains of nausea. Denies vomiting. MUSCULOSKELETAL: Denies myalgias. INTEGUMENTARY: Denies pruitis. Denies rash. NEUROLOGIC: Denies numbness. Denies tingling. Denies weakness. PSYCHIATRIC: Denies anxiety. Denies depression. ENDOCRINE: Denies fatigue. Denies weight change. Denies polydipsia. Denies polyurina. GENITOURINARY: Denies burning, hematuria or urgency with micturation. HEMATOLOGIC: Denies history of anemia. Denies bleeding. Past Medical History Past Medical History: Coronary Artery Disease (CAD), Heart Failure, Eye Disorder , GERD/Reflux, Hyperlipidemia, Hypertension, Myocardial Infarction (MS), Osteoarthritis (OA), Thyroid Disorder Additional Past Medical History / Comment(s): Past falls with injury, 2013 cardiac arrest, ischemic cardiomyopathy, Vfib/VT, AICD placed, chronic CHF, PUD , hypothyroid, degenerative arthritis. Last Myocardial Infarction Date:: 1993 History of Any Multi-Drug Resistant Organisms: None Reported Past Surgical History: Adenoidectomy, AICD, Appendectomy, Heart Catheterization , Heart Catheterization With Stent, Joint Replacement, Orthopedic Surgery, Tonsillectomy Additional Past Surgical History / Comment(s): AICD, DFTS, TOTAL LT/RT KNEE ARTHROPLASTY, bilateral CATARACTS, bilateral carpal tunnel releases, PARTIAL THYROIDECTOMY due to nodules, trigger fingers x 8, colonoscopies. Past Anesthesia/Blood Transfusion Reactions: No Reported Reaction Additional Past Anesthesia/Blood Transfusion Reaction / Comment(s): wakes up during surgery Date of Last Stent Placement:: 1993 Type of Cardiac Device: AICD Device Placement Date:: 2013 Smoking Status: Former smoker - Past Family History Son(s) Family Medical History: No Reported History Father Family Medical History: Cancer, Coronary Artery Disease (CAD), CVA/TIA, Diabetes Mellitus Additional Family Medical History / Comment(s): CAROTID ARTERY BLOCKAGE.SX IN 1988 Mother Family Medical History: Unable to Obtain Additional Family Medical History / Comment(s): AT AGE 89- UNK HX Daughter(s) Family Medical History: Cancer (Patient has 2 adopted daughters and he has been under a lot of stress with his adopted daughter whom her left taking her cars with him.) BROTHER Family Medical History: Cancer Additional Family Medical History / Comment(s): BONE, PANCREATIC Medications and Allergies Home Medications Medication Instructions Recorded Confirmed Type Atorvastatin [Lipitor] 80 mg PO HS #30 tab 11/20/13 11/16/17 Rx Omeprazole [PriLOSEC] 20 mg PO AC-BRKFST #30 capsule. 11/20/13 11/16/17 Rx Nitroglycerin Sl Tabs [Nitrostat] 0.4 mg SUBLINGUAL Q5M PRN 02/12/14 11/16/17 History Clopidogrel [Plavix] 75 mg PO DAILY 03/29/14 11/16/17 History Metoprolol Tartrate [Lopressor] 25 mg PO BID 02/28/16 11/16/17 History Lisinopril [Zestril] 5 mg PO BID 11/24/16 11/16/17 History Cetirizine HCl [Zyrtec] 10 mg PO DAILY 12/03/16 11/16/17 History Fluticasone Nasal [place] [Flonase 1 spray EA NOSTRIL DAILY 12/03/16 11/16/17 History Nasal [place]] Spironolactone [Aldactone] 12.5 mg PO DAILY 12/03/16 11/16/17 History Acetaminophen Tab [Tylenol Tab] 325 mg PO Q6H 11/16/17 11/16/17 History Amiodarone [Cordarone] 200 mg PO BID 11/16/17 11/16/17 History Aspirin [Adult Low Dose Aspirin EC] 81 mg PO DAILY 11/16/17 11/16/17 History Clopidogrel Bisulfate [Plavix] 75 mg PO DAILY 11/16/17 11/16/17 History Vit A/Vit C/Vit E/Zinc/Copper 1 cap PO DAILY 11/16/17 11/16/17 History [ICAPS SOFTGEL] Allergies Allergy/AdvReac Type Severity Reaction Status Date / Time amlodipine besylate Allergy Rash/Hives Verified 11/16/17 08:38 [From Norvasc] isosorbide [From Imdur] Allergy Unknown Verified 11/16/17 08:38 Latex, Natural Rubber Allergy Rash/Hives Verified 11/16/17 08:38 Physical Exam Vitals: Vital Signs Temp Pulse Pulse Resp BP BP Pulse Ox 11/16/17 13:12 88 115/67 11/16/17 11:13 105/64 93 L 11/16/17 08:44 98.0 F 11/16/17 08:43 100 165/89 11/16/17 08:40 112 H 205/137 11/16/17 08:05 112 H 207/137 11/16/17 07:40 78 11/16/17 07:05 151/84 11/16/17 05:44 74 18 161/70 95 11/16/17 05:09 72 18 180/73 98 11/16/17 02:44 97.0 F L 60 16 170/79 97 Intake and Output 11/15/17 11/16/17 11/16/17 22:59 06:59 14:59 Intake Total 20 Output Total 100 Balance -80 Intake: Oral 20 Output: Urine 100 Other: Voiding Method Toilet Urinal # Bowel Movements 1 # Emeses 4 Weight 94.347 kg Blood pressure 115/67 heart rate 88 afebrile maintaining oxygen saturation on room air. GENERAL: This is a 82-year-old male in no apparent distress at the time of my examination. HEENT: Head is atraumatic, normocephalic. Pupils are equal, round. Sclerae anicteric. Conjunctivae are clear. Mucous membranes of the mouth are moist. Neck is supple. There is no jugular venous distention. No carotid bruit is heard. LUNGS: Clear to auscultation no wheezes, rales or rhonchi. No chest wall tenderness is noted on palpation or with deep breathing. HEART: Regular rate and rhythm with systolic ejection murmur at the base, no rubs or gallops. S1 and S2 heard. ABDOMEN: Soft, nontender. Bowel sounds are heard. No organomegaly noted. EXTREMITIES: No evidence of peripheral edema and no calf tenderness noted. VASCULAR: Radial and dorsalis pedis pulses palpated, no evidence of clubbing. NEUROLOGIC: Patient is awake, alert and oriented x3. Results 11/16/17 03:16 11/16/17 03:16 Cardiac Enzymes 11/16/17 11/16/17 Range/Units 03:16 03:16 AST 54 (17-59) U/L Troponin I <0.012 (0.000-0.034) ng/mL Coagulation 11/16/17 Range/Units 03:16 PT 10.7 (9.0-12.0) sec APTT 22.8 (22.0-30.0) sec CBC 11/16/17 Range/Units 03:16 WBC 9.8 (3.8-10.6) k/uL RBC 4.65 (4.30-5.90) m/uL Hgb 14.6 (13.0-17.5) gm/dL Hct 45.4 (39.0-53.0) % Plt Count 194 (150-450) k/uL Comprehensive Metabolic Panel 11/16/17 Range/Units 03:16 Sodium 135 L (137-145) mmol/L Potassium 4.1 (3.5-5.1) mmol/L Chloride 103 (98-107) mmol/L Carbon Dioxide 24 (22-30) mmol/L BUN 26 H (9-20) mg/dL Creatinine 1.18 (0.66-1.25) mg/dL Glucose 116 H (74-99) mg/dL Calcium 9.4 (8.4-10.2) mg/dL AST 54 (17-59) U/L ALT 39 (21-72) U/L Alkaline Phosphatase 140 H (38-126) U/L Total Protein 6.1 L (6.3-8.2) g/dL Albumin 3.5 (3.5-5.0) g/dL Current Medications Generic Name Dose Route Start Last Admin Trade Name Freq PRN Reason Stop Dose Admin Acetaminophen 650 mg 11/16/17 05:42 Tylenol Tab PO Q6HR PRN Mild Pain or Fever > 100.5 Amiodarone HCl 200 mg 11/16/17 09:00 11/16/17 13:09 Cordarone PO 200 mg BID JONO Administration Aspirin 81 mg 11/16/17 10:00 11/16/17 13:01 Aspirin PO Not Given DAILY [facility] Atorvastatin Calcium 80 mg 11/16/17 21:00 Lipitor PO HS JONO Enalaprilat 1.25 mg 11/16/17 08:15 11/16/17 08:29 Vasotec IVP 1.25 mg Q6HR PRN Administration SBP >160 Fluticasone Propionate 1 spray 11/16/17 10:00 11/16/17 11:13 Flonase Nasal [place] EA NOSTRIL Not Given DAILY JONO Ampicillin Sodium/Sulbactam 100 mls @ 200 mls/hr 11/16/17 12:00 11/16/17 11: 16 Sodium 3 gm/ Sodium Chloride IVPB 200 mls/hr Q6HR JONO Administration Sodium Chloride 1,000 mls @ 75 mls/hr 11/16/17 09:00 11/16/17 13:09 Saline 0.9% IV 75 mls/hr .[id number] JONO Administration Lisinopril 5 mg 11/16/17 10:00 11/16/17 13:01 Zestril PO Not Given BID JONO Metoclopramide HCl 10 mg 11/16/17 08:15 11/16/17 08:20 Reglan IVP 10 mg Q6HR PRN Administration nausea Metoprolol Tartrate 25 mg 11/16/17 10:00 11/16/17 13:09 Lopressor PO 25 mg BID JONO Administration Morphine Sulfate 4 mg 11/16/17 05:42 11/16/17 13:51 Morphine Sulfate (Inj) IV 4 mg Q4HR PRN Administration Severe Pain Naloxone HCl 0.2 mg 11/16/17 05:42 Narcan IV Q2M PRN Opioid Reversal Nitroglycerin 0.4 mg 11/16/17 08:48 Nitrostat SUBLINGUAL Q5M PRN Chest Pain Ondansetron HCl 4 mg 11/16/17 08:15 11/16/17 08:48 Zofran IVP 4 mg Q6HR PRN Administration Nausea And Vomiting Pantoprazole Sodium 40 mg 11/16/17 10:00 11/16/17 11:13 Protonix IVP 40 mg DAILY JONO Administration Spironolactone 12.5 mg 11/16/17 10:00 11/16/17 13:09 Aldactone PO 12.5 mg DAILY JONO Administration Intake and Output 11/15/17 11/16/17 11/16/17 22:59 06:59 14:59 Intake Total 20 Output Total 100 Balance -80 Intake: Oral 20 Output: Urine 100 Other: Voiding Method Toilet Urinal # Bowel Movements 1 # Emeses 4 Weight 94.347 kg 11/16/17 03:16 11/16/17 03:16 Assessment and Plan Assessment: ASSESSMENT Acute pancreatitis Acute cholecystitis, surgery following and is recommending cholecystectomy Chronic systolic heart failure, EF 25-30%. Currently euvolemic History of coronary artery disease s/p multiple stent placements. Last 2013. Ischemic cardiomyopathy Hypertension Dyslipidemia s/p AICD placement secondary to cardiomyopathy and VT/VF PLAN Echocardiogram has been obtained and reviewed, is stable from previous studies in the office. Currently no symptoms suggestive of angina or overt heart failure. Obtain baseline chest xray. Plavix last dose was last night, per the patient. This should be stopped for 5 days prior to surgical intervention. This has been communicated to Dr. Khan directly. He is a high risk patient for surgical intervention and should be monitored very closely. Recommend cautious fluid administration and optimal blood pressure control. Continue with amiodarone, lisinopril, aldactone, atorvastatin and lopressor as previously ordered. We will continue to follow closely and make recommendations accordingly. Thank you kindly for this consultation. Nurse Practitioner note has been reviewed, I agree with a documented findings and plan of care. Patient was seen and examined.
--- NOTE | 2017-11-16 15:09 | P.HPIM ---
History of Present Illness H&P Date: 11/16/17 This is an 82-year-old male one of Dr. Hassan with a previous medical history significant for CAD post the cardiac arrest with ischemic cardiomyopathy post AICD implantation, left heart catheterization with PCI back in 2013, chronic systolic heart failure with EF 35 %, peptic ulcer disease, hyperlipidemia, hypothyroidism, osteoarthritis. Patient was admitted in February 2016 for dizziness and subsequently his ICD fired first time and it did fire again the second time V. fib V. tach was detected. ICD was interrogated and adjusted from 25-35 J. Last admission in `2016 for hyponatremia. Patient comes in to the ER with significant back pain that started last night radiated to the epigastric area. Patient also endorses nausea but no episode of vomiting. He denies any previous augmentation of severe chest pain. Since the pain did not get better patient decided to come to the ER. On evaluation in the ER patient had a lipase of 10,000-34 and an amylase of 593. LFTs suggested alkaline phosphatase 140 with normal bilirubin and AST and ALT. Patient denies history of alcoholism. Ultrasound abdomen was obtained that suggested cholecystitis. Possible sludge near the neck with wall thickening and pericholecystic fluid was seen. Echocardiogram was obtained which suggested EF of 25-30% with severe global hypokinesia.Vitals obtained this morning suggests tachycardia, blood pressure 205/137, saturating well on room air. Patient on evaluation is nauseous and having multiple bouts of vomiting uncontrolled on Zofran and Reglan. Oral medication could not be an administrated as patient was nauseous. Other pertinent labs include a lactic acid 2.3 which improved to 1. 5 in the afternoon. Troponin 1 is negative. Triglyceride 181 in August 2017. Patient's presentation is concerning for cholecystitis and pancreatitis. CT of the tendon last night suggest distended gallbladder with acute cholecystitis with stranding that about the head and uncinate process of the pancreas concerning for acute pancreatitis. Gastroenterology and surgery on consult. Patient may require cardiac clearance prior to going for surgery. Keep Plavix on hold. Cardiology evaluation pending keep patient nothing by mouth. Normal saline running at 75 mL in due to decreased ejection fraction and concern for volume overload Review of Systems Constitutional: Reports chills, Reports lethargy, Denies anorexia, Denies fever , Denies night sweats, Denies poor appetite Eyes: denies blurred vision, denies decreased vision, denies discharge Ears: bilateral: decreased hearing Ears, nose, mouth and throat: Denies epistaxis, Denies headache, Denies hoarseness, Denies nose pain, Denies odynophagia, Denies post-nasal drip Cardiovascular: Reports lightheadedness, Denies chest pain, Denies decreased exercise tolerance, Denies dyspnea on exertion, Denies edema, Denies leg edema, Denies palpitations, Denies rapid heart beat, Denies shortness of breath Respiratory: Denies congestion, Denies cough, Denies cough with sputum, Denies hemoptysis, Denies home oxygen, Denies pain on inspiration Gastrointestinal: Reports abdominal pain, Reports bloating, Reports nausea, Reports vomiting, Denies BRBPR, Denies change in bowel habits, Denies constipation, Denies diarrhea, Denies dyspepsia, Denies early satiety, Denies excessive gas, Denies heartburn, Denies hematemesis, Denies hematochezia Genitourinary: Denies hematuria, Denies kidney stones, Denies urinary frequency , Denies urinary hesitancy Musculoskeletal: Denies arm numbness/tingling, Denies limitation of motion, Denies morning stiffness, Denies muscle weakness, Denies neck pain Musculoskeletal: absent: ankle pain, elbow pain, foot pain Past Medical History Past Medical History: Coronary Artery Disease (CAD), Heart Failure, Eye Disorder , GERD/Reflux, Hyperlipidemia, Hypertension, Myocardial Infarction (NV), Osteoarthritis (OA), Thyroid Disorder Additional Past Medical History / Comment(s): Past falls with injury, 2014 cardiac arrest, ischemic cardiomyopathy, Vfib/VT, AICD placed, chronic CHF, PUD , hypothyroid, degenerative arthritis. Last Myocardial Infarction Date:: 1993 History of Any Multi-Drug Resistant Organisms: None Reported Past Surgical History: Adenoidectomy, AICD, Appendectomy, Heart Catheterization , Heart Catheterization With Stent, Joint Replacement, Orthopedic Surgery, Tonsillectomy Additional Past Surgical History / Comment(s): AICD, DFTS, TOTAL LT/RT KNEE ARTHROPLASTY, bilateral CATARACTS, bilateral carpal tunnel releases, PARTIAL THYROIDECTOMY due to nodules, trigger fingers x 8, colonoscopies. Past Anesthesia/Blood Transfusion Reactions: No Reported Reaction Additional Past Anesthesia/Blood Transfusion Reaction / Comment(s): wakes up during surgery Date of Last Stent Placement:: 1993 Type of Cardiac Device: AICD Device Placement Date:: 2013 Smoking Status: Former smoker - Past Family History Son(s) Family Medical History: No Reported History Father Family Medical History: Cancer, Coronary Artery Disease (CAD), CVA/TIA, Diabetes Mellitus Additional Family Medical History / Comment(s): CAROTID ARTERY BLOCKAGE.SX IN 1988 Mother Family Medical History: Unable to Obtain Additional Family Medical History / Comment(s): AT AGE 89- UNK HX Daughter(s) Family Medical History: Cancer (Patient has 2 adopted daughters and he has been under a lot of stress with his adopted daughter whom her left taking her cars with him.) BROTHER Family Medical History: Cancer Additional Family Medical History / Comment(s): BONE, PANCREATIC Medications and Allergies Home Medications Medication Instructions Recorded Confirmed Type Atorvastatin [Lipitor] 80 mg PO HS #30 tab 11/20/13 11/16/17 Rx Omeprazole [PriLOSEC] 20 mg PO AC-AMBERKBRENDA #30 capsule. 11/20/13 11/16/17 Rx Nitroglycerin Sl Tabs [Nitrostat] 0.4 mg SUBLINGUAL Q5M PRN 02/12/14 11/16/17 History Clopidogrel [Plavix] 75 mg PO DAILY 03/29/14 11/16/17 History Metoprolol Tartrate [Lopressor] 25 mg PO BID 02/28/16 11/16/17 History Lisinopril [Zestril] 5 mg PO BID 11/24/16 11/16/17 History Cetirizine HCl [Zyrtec] 10 mg PO DAILY 12/03/16 11/16/17 History Fluticasone Nasal [place] [Flonase 1 spray EA NOSTRIL DAILY 12/03/16 11/16/17 History Nasal [place]] Spironolactone [Aldactone] 12.5 mg PO DAILY 12/03/16 11/16/17 History Acetaminophen Tab [Tylenol Tab] 325 mg PO Q6H 11/16/17 11/16/17 History Amiodarone [Cordarone] 200 mg PO BID 11/16/17 11/16/17 History Aspirin [Adult Low Dose Aspirin EC] 81 mg PO DAILY 11/16/17 11/16/17 History Clopidogrel Bisulfate [Plavix] 75 mg PO DAILY 11/16/17 11/16/17 History Vit A/Vit C/Vit E/Zinc/Copper 1 cap PO DAILY 11/16/17 11/16/17 History [ICAPS SOFTGEL] Allergies Allergy/AdvReac Type Severity Reaction Status Date / Time amlodipine besylate Allergy Rash/Hives Verified 11/16/17 08:38 [From Norvasc] isosorbide [From Imdur] Allergy Unknown Verified 11/16/17 08:38 Latex, Natural Rubber Allergy Rash/Hives Verified 11/16/17 08:38 Physical Exam Vitals: Vital Signs Temp Pulse Pulse Resp BP BP Pulse Ox 11/16/17 13:12 88 115/67 11/16/17 11:13 105/64 93 L 11/16/17 08:44 98.0 F 11/16/17 08:43 100 165/89 11/16/17 08:40 112 H 205/137 11/16/17 08:05 112 H 207/137 11/16/17 07:40 78 11/16/17 07:05 151/84 11/16/17 05:44 74 18 161/70 95 11/16/17 05:09 72 18 180/73 98 11/16/17 02:44 97.0 F L 60 16 170/79 97 Intake and Output 11/15/17 11/16/17 11/16/17 22:59 06:59 14:59 Intake Total 20 Output Total 100 Balance -80 Intake: Oral 20 Output: Urine 100 Other: Voiding Method Toilet Urinal # Bowel Movements 1 # Emeses 4 Weight 94.347 kg - Constitutional General appearance: average body habitus, mild distress, obese - EENT Eyes: PERRLA, no photophobia, dentition normal ENT: hard of hearing Ears: bilateral: normal - Neck Neck: no lymphadenopathy, normal ROM, no rigidity, no stridor Carotids: bilateral: upstroke normal Thyroid: bilateral: normal size - Respiratory Respiratory: bilateral: CTA, negative: diminished, dullness, rales, rhonchi, wheezing - Cardiovascular Rhythm: regular Heart sounds: normal: S1, S2 Abnormal Heart Sounds: systolic murmur ankle Peripheral Edema: absent: None dorsalis pedis Peripheral Pulses: bilateral: Normal - Gastrointestinal General gastrointestinal: normal bowel sounds, soft, tenderness (Right upper quadrant and epigastric region) - Integumentary Integumentary: no cellulitis, no cyanotic, no decreased turgor, no jaundiced - Neurologic Neurologic: CNII-XII intact - Musculoskeletal Musculoskeletal: gait normal, generalized weakness - Psychiatric Psychiatric: A&O x's 3, appropriate affect Results CBC & Chem 7: 11/16/17 03:16 11/16/17 03:16 Labs: Abnormal Lab Results - Last 24 Hours (Table) 11/16/17 11/16/17 Range/Units 03:16 09:20 Sodium 135 L (137-145) mmol/L BUN 26 H (9-20) mg/dL Glucose 116 H (74-99) mg/dL Plasma Lactic Acid Izaiah 2.3 H* (0.7-2.0) mmol/L Alkaline Phosphatase 140 H (38-126) U/L Total Protein 6.1 L (6.3-8.2) g/dL Amylase 593 H* (30-110) U/L Lipase 94177 H (23-300) U/L Thrombosis Risk Factor Assmnt - DVT/VTE Prophylaxis DVT/VTE Prophylaxis: Pharmacologic Prophylaxis ordered - Choose All That Apply Any of the Below Risk Factors Present?: Yes Each Factor Represents 1 point: Obesity (BMI >25) Other Risk Factors: Yes Each Risk Factor Represents 3 Points: Age 75 years or older Other congenital or acquired thrombophilia - If yes, enter type in comment: No Thrombosis Risk Factor Assessment Total Risk Factor Score: 4 Thrombosis Risk Factor Assessment Level: Moderate Risk Assessment and Plan Plan: 1. Acute back pain radiating to the right upper quadrant and epigastric region secondary to cholecystitis and pancreatitis. Likely acalculous cholecystitis from the CT finding ultrasound suggestive of sludge in the neck but is not clear due to bowel gas -keep the patient nothing by mouth , fluid has to be administrated cautiously as patient has a ejection fraction 30%. Patient received 1 L of IV fluid in the ER currently on 75 mL per hour. Watch for any shortness of breath or sign of fluid overload. 2 cholecystitis on Unasyn. Blood cultures ordered. Likely secondary to gallstones though CT does not suggest any gallstones. Ultrasound concerning for sludge in the neck. Surgery consult. GI consult placed. 3. Acute pancreatitis secondary to gallstones. Keep patient nothing by mouth. Fluid administration is to be administered cautiously as patient has significant heart failure. Normal saline running at 75 mL per hour 4. h/o V. fib/V. tach - Continue amiodarone 200 mg po daily 5. CAD post NV with cardiac arrest status post PCI back in 2013. Continue metoprolol 25 mg orally twice every day, amlodipine 12.5 mg by mouth daily, lisinopril 5 mg by mouth daily, aspirin 81 mg orally once every day, hold Plavix for possible surgery. Plavix to be held for 5 days prior to the surgery. Dr. Snow on consult 6. Hyperlipidemia. Continue patient on low-cholesterol diet. 7. Hypertension. Continue metoprolol 25 mg orally twice every day, Imuran drawn 12.5 mg by mouth daily, lisinopril 5 mg by mouth daily 8. Post partial thyroidectomy. 9. AMD. Stable at this point in time. 10. History of PUD. Continue Protonix 40 mg orally once every day. 11. Osteoarthritis. Stable. 12. Ischemic cardiomyopathy s/p AICD Stable at this time ejection fraction similar to the previous echo 13. DVT prophylaxis. Lovenox 40 mg subcutaneously every 24 hours. 14. GI prophylaxis. Protonix 40 mg orally once every day. 15. Admit to inpatient. 16. Estimate length of stay 2 midnights.
[2017-11-16] MEDS ORDERED: SODIUM CHLORIDE 0.9% 500 ML 500 ML IV ONE (16:39)
[2017-11-16] MEDS: ATORVASTATIN 80 MG TAB PO SCH (21:32)
--- NOTE | 2017-11-16 22:04 | XR ---
EXAMINATION: XR chest 2V DATE AND TIME: 11/16/2017 7:50 PM CLINICAL INDICATION: baseline, hx hf TECHNIQUE: AP and lateral COMPARISON: 11/24/2016 FINDINGS: Cardiac pacemaker present. Elevated hemidiaphragms consistent with low lung inflation at the moment of x-ray exposure. There is consolidative opacity in the lung bases posteriorly, consistent with atelectasis and/or conc urrent bronchopneumonia; clinical delineation. The mid and upper lungs are predominantly clear. The pleural spaces are negative as seen. Moderately enlarged cardiac silhouette redemonstrated. No definite acute skeletal or soft tissue findings. IMPRESSION: BIBASILAR PARTIAL AIRLESSNESS.
[2017-11-16] MEDS: ACETAMINOPHEN TAB 325 MG TAB PO PRN (23:07)
[2017-11-17] MEDS: SODIUM CHLORIDE 0.9% 1,000 ML IV SCH ×2 (00:41→04:16)
[2017-11-17] MEDS: AMPICILLIN-SULBACTAM 3 GM in SODIUM CHLORIDE 0.9% 100 ML IVPB SCH ×4 (00:41→17:55)
[2017-11-17] MEDS: MORPHINE SULFATE 4 MG/ML SYRINGE IV PRN ×2 (04:35→11:39)
--- NOTE | 2017-11-17 08:31 | P.PN ---
Subjective Mr. Carrillo is seen and examined resting comfortably in bed. He states the pain in his abdomen has mildly improved however he seems very uncomfortable with any sort of movement. He denies chest pain, shortness of breath, dizziness or palpitations. Plavix has been held, last dose Wednesday night. Chest xray obtained revealed evidence of bibasilar atelectasis, no pleural effusions noted. Laboratory data pending. Blood pressure 133/68 heart rate 61 afebrile and maintaining oxygen saturation on nasal cannula. Currently maintained on amiodarone 200 mg BID, atorvastatin 80 mg daily, lisinopril 5 mg BID, lopressor 25 mg BID and aldactone 12.5 mg daily. Objective - Vital Signs Vital signs: Vital Signs Temp 97.9 F 11/17/17 07:16 Pulse 61 11/17/17 07:16 Resp 20 11/17/17 07:16 BP 133/68 11/17/17 07:16 Pulse Ox 92 L 11/17/17 07:16 Intake & Output 11/16/17 11/17/17 11/17/17 18:59 06:59 18:59 Intake Total 20 1120 Output Total 100 700 Balance -80 420 Weight 99.5 kg Intake: Intake, IV Titration 1100 Amount Ampicillin-Sulbactam 3 gm 200 In Sodium Chloride 0.9% 100 ml @ 200 mls/hr IVPB Q6HR [facility] Rx#:[id number] Sodium Chloride 0.9% 1, 900 000 ml @ 75 mls/hr IV . [id number] [facility] Rx#:[id number] Oral 20 20 Output: Urine 100 700 Other: Voiding Method Toilet Toilet Urinal Urinal # Voids 1 # Bowel Movements 1 # Emeses 4 - Exam GENERAL: In no acute distress. NECK: Supple without JVD or thyromegaly. LUNGS: Breath sounds clear to auscultation bilaterally. Respiration equal and unlabored. No wheezes, rales or rhonchi. Diminished bilaterally secondary to poor inspiration due to pain. HEART: Regular rate and rhythm with systolic ejection murmur at the base, no rubs or gallops. S1 and S2 heard. EXTREMITIES: Normal range of motion, no edema. No clubbing or cyanosis. Peripheral pulses intact. - Labs CBC & Chem 7: 11/16/17 03:16 11/16/17 03:16 Labs: Abnormal Lab Results - Last 24 Hours (Table) 11/16/17 Range/Units 09:20 Plasma Lactic Acid Izaiah 2.3 H* (0.7-2.0) mmol/L Assessment and Plan Assessment: ASSESSMENT Acute pancreatitis Acute cholecystitis, surgery following and is recommending cholecystectomy Chronic systolic heart failure, EF 25-30%. Currently euvolemic History of coronary artery disease s/p multiple stent placements. Last 2013. Ischemic cardiomyopathy Hypertension Dyslipidemia s/p AICD placement secondary to cardiomyopathy and VT/VF PLAN Provide patient with incentive spirometer and education to use hourly when awake and encourage deep breathing. Get him up to the chair throughout the day to increase activity. Repeat labs are pending for today. Plavix has been held, last dose Wednesday night. Appropriate for surgery Wednesday at the earliest. Nurse Practitioner note has been reviewed, I agree with a documented findings and plan of care. Patient was seen and examined.
[2017-11-17] MEDS: SPIRONOLACTONE 25 MG TAB PO SCH (08:53)
[2017-11-17] MEDS: FLUTICASONE 50MCG/SPRAY NASAL 16GM EA NOSTRIL SCH (08:54)
[2017-11-17] MEDS: PANTOPRAZOLE 40 MG/10 ML VIAL IVP SCH (08:54)
[2017-11-17] MEDS: AMIODARONE 200 MG TAB PO SCH ×2 (08:54→21:46)
[2017-11-17] MEDS: LISINOPRIL 5 MG TAB PO SCH ×2 (08:54→21:45)
[2017-11-17] MEDS: METOPROLOL TARTRATE 25 MG TAB PO SCH ×2 (08:54→21:46)
[2017-11-17 10:44] LABS: Basophils % (A) 0 %; Eosinophils # (A) 0.1 k/uL (0-0.7); Eosinophils % (A) 1 %; HCT 40.9 % (39.0-53.0); HGB 13.4 gm/dL (13.0-17.5); Lymphocytes # (A) 0.6 k/uL (1.0-4.8); Lymphocytes % (A) 3 %; MCH 32.5 pg (25.0-35.0); MCHC 32.7 g/dL (31.0-37.0); MCV 99.3 fL (80.0-100.0); Mean Platelet Volume 7.5; Monocytes # (A) 0.4 k/uL (0-1.0); Monocytes % (A) 3 %; Neutrophils # (A) 15.9 k/uL (1.3-7.7); Neutrophils % (A) 93 %; Platelet Count 149 k/uL (150-450); RBC 4.12 m/uL (4.30-5.90); RDW 12.9 % (11.5-15.5); WBC 17.1 k/uL (3.8-10.6)
[2017-11-17 10:55] LABS: Albumin 2.7 g/dL (3.5-5.0); Calcium 8.6 mg/dL (8.4-10.2); Potassium 4.3 mmol/L (3.5-5.1); Total Bilirubin 1.2 mg/dL (0.2-1.3); Total Protein 5.2 g/dL (6.3-8.2)
--- NOTE | 2017-11-17 11:01 | P.PN ---
Subjective Progress Note Date: 11/17/17 Principal diagnosis: Acute pancreatitis Feels better. White count increased to 17.1 today. Afebrile. Abdominal pain improving. CMP pending. Cholecystectomy planned for Wednesday. Ultrasound abdomen possible sludge near the neck with probable pericholecystic fluid. CBD 0.4 cm. Objective - Vital Signs Vital signs: Vital Signs Temp 97.9 F 11/17/17 07:16 Pulse 61 11/17/17 07:16 Resp 20 11/17/17 09:10 BP 133/68 11/17/17 07:16 Pulse Ox 92 L 11/17/17 07:16 Intake & Output 11/16/17 11/17/17 11/17/17 18:59 06:59 18:59 Intake Total 20 1120 Output Total 100 700 Balance -80 420 Weight 99.5 kg Intake: Intake, IV Titration 1100 Amount Ampicillin-Sulbactam 3 gm 200 In Sodium Chloride 0.9% 100 ml @ 200 mls/hr IVPB Q6HR [facility] Rx#:[id number] Sodium Chloride 0.9% 1, 900 000 ml @ 75 mls/hr IV . [id number] [facility] Rx#:[id number] Oral 20 20 Output: Urine 100 700 Other: Voiding Method Toilet Toilet Urinal Urinal Urinal # Voids 1 # Bowel Movements 1 # Emeses 4 - Exam General appearance: The patient is alert, oriented, in no acute distress. HET: Head is normocephalic and atraumatic. Pupils are equal and reactive. Oropharynx is clear without lesions. Neck: Supple without lymphadenopathy. Trachea midline. Heart: S1 S2. Regular rate and rhythm. Lungs: No crackles or wheezes are heard. Abdomen: Soft, mild tenderness bilateral upper abdomen, nondistended with bowel sounds. No peritoneal signs. No palpable organomegaly or masses. Extremities: Normal skin color and turgor. No cyanosis, rash, ulceration, clubbing, or edema. Radial and pedal pulses are 2/4 bilaterally. Neurological: No focal deficits. Strength and sensation are grossly intact. - Labs CBC & Chem 7: 11/17/17 09:25 11/16/17 03:16 Labs: Abnormal Lab Results - Last 24 Hours (Table) 11/17/17 Range/Units 09:25 WBC 17.1 H (3.8-10.6) k/uL RBC 4.12 L (4.30-5.90) m/uL Plt Count 149 L (150-450) k/uL Neutrophils # 15.9 H (1.3-7.7) k/uL Lymphocytes # 0.6 L (1.0-4.8) k/uL Assessment and Plan (1) Pancreatitis Narrative/Plan: 82-year-old male with no history of pancreatitis admitted status post fall back pain with elevated amylase lipase consistent with acute pancreatitis etiology is unclear possible biliary pancreatitis. CT imaging reported mild stranding about the head and uncinate process of the pancreas, distended gallbladder with adjacent stranding suggesting acute acalculous cholecystitis. Ultrasound could not exclude possible sludge near the neck no biliary tree dilation noted. Current Visit: Yes Status: Acute Code(s): K85.90 - ACUTE PANCREATITIS WITHOUT NECROSIS OR INFECTION, UNSP SNOMED Code(s): 53403162 (2) Leukocytosis Current Visit: Yes Status: Acute Code(s): D72.829 - ELEVATED WHITE BLOOD CELL COUNT, UNSPECIFIED SNOMED Code(s): 949880168 Plan: 1. Continue with nothing by mouth status diet to be determined by general surgery. Continue with IV antibiotics. Daily monitoring of pancreatic enzymes as well as CBC CMP. ERCP is not planned at this time. We'll continue to follow with you. Cautious IV hydration secondary to history of CHF. Will follow closely with you. Assessment and plan a care discussed with Dr. Huber
--- NOTE | 2017-11-17 12:04 | P.PN ---
Subjective Progress Note Date: 11/17/17 82-year-old male seen this morning at the bedside sitting up in bed taking a diet appears in no acute distress. Currently denying dizziness lightheadedness chest pain or shortness of breath patient reports he continues to have right upper quadrant abdominal pain worse with movement White count up to 17.1 today. From 9.8 on IV Unasyn [place] admission [id number] this morning [place] 2076 Ultrasound the abdomen revealing report possible slight improvement in neck with probable pericholecystic fluid. Common bile duct 0.4. Patient states he still has intermittent episodes of right upper quadrant abdominal pain worse with movement Patients being followed by cardiology service currently Plavix is on hold Objective - Vital Signs Vital signs: Vital Signs Temp 97.9 F 11/17/17 07:16 Pulse 61 11/17/17 07:16 Resp 20 11/17/17 09:10 BP 133/68 11/17/17 07:16 Pulse Ox 92 L 11/17/17 07:16 Intake & Output 11/16/17 11/17/17 11/17/17 18:59 06:59 18:59 Intake Total 20 1120 Output Total 100 700 250 Balance -80 420 -250 Weight 99.5 kg Intake: Intake, IV Titration 1100 Amount Ampicillin-Sulbactam 3 gm 200 In Sodium Chloride 0.9% 100 ml @ 200 mls/hr IVPB Q6HR [facility] Rx#:[id number] Sodium Chloride 0.9% 1, 900 000 ml @ 75 mls/hr IV . [id number] [facility] Rx#:[id number] Oral 20 20 Output: Urine 100 700 250 Other: Voiding Method Toilet Toilet Urinal Urinal Urinal # Voids 1 1 # Bowel Movements 1 # Emeses 4 - Exam Physical exam 81-year-old male sitting up in bed currently is denying chest pain dizziness lightheadedness. Reports continues to have intermittent episodes of right upper quadrant abdominal pain worse with movement Lungs posterior diminished at the bases otherwise adequate air movement nasal cannula 2 L sats are 92% no shortness of breath noted with conversation Heart S1-S2 audible regular Abdomen mild tenderness right upper quadrant radiates to the back no nausea no vomiting tolerating diet no stool nondistended bowel tones present Extremities no edema noted - Labs CBC & Chem 7: 11/17/17 09:25 10/03/18 09:25 Labs: Abnormal Lab Results - Last 24 Hours (Table) 11/17/17 11/17/17 Range/Units 09:25 09:25 WBC 17.1 H (3.8-10.6) k/uL RBC 4.12 L (4.30-5.90) m/uL Plt Count 149 L (150-450) k/uL Neutrophils # 15.9 H (1.3-7.7) k/uL Lymphocytes # 0.6 L (1.0-4.8) k/uL BUN 33 H (9-20) mg/dL AST 60 H (17-59) U/L ALT 79 H (21-72) U/L Total Protein 5.2 L (6.3-8.2) g/dL Albumin 2.7 L (3.5-5.0) g/dL Amylase 447 H* (30-110) U/L Lipase 2077 H (23-300) U/L Microbiology - Last 24 Hours (Table) 11/16/17 09:20 Blood Culture - Preliminary Blood No Growth after 24 hours 11/16/17 09:32 Blood Culture - Preliminary Blood No Growth after 24 hours Assessment and Plan Assessment: Impression Present on admission right upper quadrant abdominal pain with a CT abdomen and pelvis report gallbladder distended with adjacent stranding suggesting acute cholecystitis Present on admission elevated lipase pancreatitis unclear etiology Known coronary artery disease with prior coronary stenting on Plavix Cardiomyopathy with AICD Peptic ulcer disease Prior to admission fall did not lose consciousness strike left forehead and left shoulder Plan Cardiology is recommending holding Plavix for 5 days before surgery Plavix on hold Repeat labs in the morning Scheduled for a lap cholecystectomy this Wednesday Will follow closely with you Further surgical recommendations pending continue recommendations by cardiology and GI service DVT and GI prophylaxis Per GI service ERCP is not planned at this time Increase activity and increase use of the incentive spirometer The above impression and plan of care have been discussed and directed by signing physician. Glenny Lunsford nurse practitioner acting as scribe for signing physician.
--- NOTE | 2017-11-17 15:06 | P.PN ---
Subjective Progress Note Date: 11/17/17 This is an 82-year-old male one of Dr. Hassan with a previous medical history significant for CAD post the cardiac arrest with ischemic cardiomyopathy post AICD implantation, left heart catheterization with PCI back in 2013, chronic systolic heart failure with EF 35 %, peptic ulcer disease, hyperlipidemia, hypothyroidism, osteoarthritis. Patient was admitted in February 2016 for dizziness and subsequently his ICD fired first time and it did fire again the second time V. fib V. tach was detected. ICD was interrogated and adjusted from 25-35 J. Last admission in `2016 for hyponatremia. Patient comes in to the ER with significant back pain that started last night radiated to the epigastric area. Patient also endorses nausea but no episode of vomiting. He denies any previous augmentation of severe chest pain. Since the pain did not get better patient decided to come to the ER. On evaluation in the ER patient had a lipase of 10,000-34 and an amylase of 593. LFTs suggested alkaline phosphatase 140 with normal bilirubin and AST and ALT. Patient denies history of alcoholism. Ultrasound abdomen was obtained that suggested cholecystitis. Possible sludge near the neck with wall thickening and pericholecystic fluid was seen. Echocardiogram was obtained which suggested EF of 25-30% with severe global hypokinesia.Vitals obtained this morning suggests tachycardia, blood pressure 205/137, saturating well on room air. Patient on evaluation is nauseous and having multiple bouts of vomiting uncontrolled on Zofran and Reglan. Oral medication could not be an administrated as patient was nauseous. Other pertinent labs include a lactic acid 2.3 which improved to 1. 5 in the afternoon. Troponin 1 is negative. Triglyceride 181 in August 2017. Patient's presentation is concerning for cholecystitis and pancreatitis. CT of the tendon last night suggest distended gallbladder with acute cholecystitis with stranding that about the head and uncinate process of the pancreas concerning for acute pancreatitis. Gastroenterology and surgery on consult. Patient may require cardiac clearance prior to going for surgery. Keep Plavix on hold. Cardiology evaluation pending keep patient nothing by mouth. Normal saline running at 75 mL in due to decreased ejection fraction and concern for volume overload 11/17: Patient denies having any nausea today. He denies any chest pain or shortness of breath. He does have incentive spirometry. Patient was scheduled for gallbladder surgery with Dr. Pulido this week as he needed to be off Plavix which has been postponed until Wednesday. White count has jumped up to 16.1 , creatinine is 1.12, lites within normal limits. Amylase is down to 447 and lipase is significantly improved at 2076. AST and ALT slightly elevated. Patient encouraged to increase activity. Objective - Vital Signs Vital signs: Vital Signs Temp 97.9 F 11/17/17 07:16 Pulse 61 11/17/17 07:16 Resp 20 11/17/17 09:10 BP 133/68 11/17/17 07:16 Pulse Ox 92 L 11/17/17 07:16 Intake & Output 11/16/17 11/17/17 11/17/17 18:59 06:59 18:59 Intake Total 20 1120 Output Total 100 700 Balance -80 420 Weight 99.5 kg Intake: Intake, IV Titration 1100 Amount Ampicillin-Sulbactam 3 gm 200 In Sodium Chloride 0.9% 100 ml @ 200 mls/hr IVPB Q6HR [facility] Rx#:[id number] Sodium Chloride 0.9% 1, 900 000 ml @ 75 mls/hr IV . [id number] [facility] Rx#:[id number] Oral 20 20 Output: Urine 100 700 Other: Voiding Method Toilet Toilet Urinal Urinal Urinal # Voids 1 # Bowel Movements 1 # Emeses 4 - Exam General appearance: average body habitus, mild distress, obese - EENT Eyes: PERRLA, no photophobia, dentition normal ENT: hard of hearing Ears: bilateral: normal - Neck Neck: no lymphadenopathy, normal ROM, no rigidity, no stridor Carotids: bilateral: upstroke normal Thyroid: bilateral: normal size - Respiratory Respiratory: bilateral: CTA, negative: diminished, dullness, rales, rhonchi, wheezing - Cardiovascular Rhythm: regular Heart sounds: normal: S1, S2 Abnormal Heart Sounds: systolic murmur ankle Peripheral Edema: absent: None dorsalis pedis Peripheral Pulses: bilateral: Normal - Gastrointestinal General gastrointestinal: normal bowel sounds, soft, tenderness (Right upper quadrant and epigastric region) - Integumentary Integumentary: no cellulitis, no cyanotic, no decreased turgor, no jaundiced - Neurologic Neurologic: CNII-XII intact - Musculoskeletal Musculoskeletal: gait normal, generalized weakness - Psychiatric Psychiatric: A&O x's 3, appropriate affect - Labs CBC & Chem 7: 11/17/17 09:25 11/17/17 09:25 Assessment and Plan Plan: 1. Acute back pain radiating to the right upper quadrant and epigastric region secondary to cholecystitis and pancreatitis. Likely acalculous cholecystitis from the CT finding ultrasound suggestive of sludge in the neck but is not clear due to bowel gas -clear liquid diet started today, fluid has to be administrated cautiously as patient has a ejection fraction 30%. Patient received 1 L of IV fluid in the ER currently on 75 mL per hour. Watch for any shortness of breath or sign of fluid overload. 2 cholecystitis. Patient on Unasyn. Blood cultures ordered. Likely secondary to gallstones though CT does not suggest any gallstones. Ultrasound concerning for sludge in the neck. Surgery consuland GI consult appreciated. Patient scheduled for cholecystectomy on Wednesday 3. Acute pancreatitis secondary to gallstoclear liquid diet Fluid administration is to be administered cautiously as patient has significant heart failure. Normal saline running at 75 mL per hour 4. h/o V. fib/V. tach and ischemic cardiomyopathy status post AICD - Continue amiodarone 200 mg po daily 5. CAD post MT with cardiac arrest status post PCI back in 2013. Continue metoprolol 25 mg orally twice every day, amlodipine 12.5 mg by mouth daily, lisinopril 5 mg by mouth daily, aspirin 81 mg orally once every day, hold Plavix for possible surgery. Plavix to be held for 5 days prior to the surgery. Dr. Snow on consult 6. Hyperlipidemia. Continue patient on low-cholesterol diet. 7. Hypertension. Continue metoprolol 25 mg orally twice every day, Imuran drawn 12.5 mg by mouth daily, lisinopril 5 mg by mouth daily 8. Post partial thyroidectomy. 9. AMD. Stable at this point in time. 10. History of PUD. Continue Protonix 40 mg orally once every day. 11. Osteoarthritis. Stable. 12. Ischemic cardiomyopathy s/p AICD Stable at this time ejection fraction similar to the previous echo 13. DVT prophylaxis. Lovenox 40 mg subcutaneously every 24 hours. 14. GI prophylaxis. Protonix 40 mg orally once every day. discharge plan: Return home most likely. PT and OT added. Patient to increase activity. Impression and plan of care have been directed as dictated by the signing physician. Robyn Lopez nurse practitioner acting as scribe for signing physician.
[2017-11-17] MEDS: ONDANSETRON 4 MG/2 ML VIAL IVP PRN (16:54)
[2017-11-17] MEDS: ACETAMINOPHEN TAB 325 MG TAB PO PRN (21:46)
[2017-11-17] MEDS: ATORVASTATIN 80 MG TAB PO SCH (21:46)
[2017-11-17] MEDS: METOCLOPRAMIDE 5 MG/ML 2 ML VIAL IVP PRN (21:46)
[2017-11-18] MEDS: AMPICILLIN-SULBACTAM 3 GM in SODIUM CHLORIDE 0.9% 100 ML IVPB SCH ×5 (00:06→23:59)
[2017-11-18] MEDS: SODIUM CHLORIDE 0.9% 1,000 ML IV SCH ×3 (02:36→11:25)
[2017-11-18] MEDS: ONDANSETRON 4 MG/2 ML VIAL IVP PRN ×2 (03:47→11:33)
[2017-11-18 08:05] LABS: Basophils % (A) 0 %; Eosinophils # (A) 0.1 k/uL (0-0.7); Eosinophils % (A) 1 %; HCT 40.7 % (39.0-53.0); HGB 13.2 gm/dL (13.0-17.5); Lymphocytes # (A) 0.5 k/uL (1.0-4.8); Lymphocytes % (A) 3 %; MCH 31.7 pg (25.0-35.0); MCHC 32.3 g/dL (31.0-37.0); MCV 98.1 fL (80.0-100.0); Mean Platelet Volume 7.7; Monocytes # (A) 0.4 k/uL (0-1.0); Monocytes % (A) 2 %; Neutrophils % (A) 93 %; Platelet Count 154 k/uL (150-450); RBC 4.16 m/uL (4.30-5.90); RDW 12.9 % (11.5-15.5); WBC 17.2 k/uL (3.8-10.6)
[2017-11-18 08:25] LABS: ALT 57 U/L (21-72); AST 39 U/L (17-59); Albumin 2.7 g/dL (3.5-5.0); Alkaline Phosphatase 102 U/L (38-126); Anion Gap 8 mmol/L; Blood Urea Nitrogen 22 mg/dL (9-20); Calcium 8.6 mg/dL (8.4-10.2); Carbon Dioxide 22 mmol/L (22-30); Chloride 107 mmol/L (98-107); Glucose 107 mg/dL (74-99); Lipase 1052 U/L (23-300); Potassium 4.2 mmol/L (3.5-5.1); Sodium 137 mmol/L (137-145); Total Bilirubin 1.3 mg/dL (0.2-1.3); Total Protein 5.3 g/dL (6.3-8.2)
[2017-11-18] MEDS: SPIRONOLACTONE 25 MG TAB PO SCH (08:27)
[2017-11-18] MEDS: LISINOPRIL 5 MG TAB PO SCH ×2 (08:28→21:15)
[2017-11-18] MEDS: AMIODARONE 200 MG TAB PO SCH (08:28)
[2017-11-18] MEDS: METOPROLOL TARTRATE 25 MG TAB PO SCH ×2 (08:28→21:15)
[2017-11-18] MEDS: FLUTICASONE 50MCG/SPRAY NASAL 16GM EA NOSTRIL SCH (08:29)
[2017-11-18] MEDS: PANTOPRAZOLE 40 MG/10 ML VIAL IVP SCH (08:29)
[2017-11-18] MEDS: METOCLOPRAMIDE 5 MG/ML 2 ML VIAL IVP PRN ×2 (08:29→17:44)
[2017-11-18] MEDS ORDERED: BACLOFEN 10 MG TAB PO PRN (10:40)
[2017-11-18] MEDS: traMADol 50 MG TAB PO PRN ×2 (11:23→21:12)
--- NOTE | 2017-11-18 11:41 | P.PN ---
Subjective Progress Note Date: 11/18/17 Principal diagnosis: Acute pancreatitis Feels better. White count 17.2 relatively unchanged from yesterday. Afebrile. Abdominal pain improving. LFTs within normal limits. Lipase improving 1052. Cholecystectomy planned for Wednesday. Ultrasound abdomen possible sludge near the neck with probable pericholecystic fluid. CBD 0.4 cm. Objective - Vital Signs Vital signs: Vital Signs Temp 98.9 F 11/18/17 05:00 Pulse 72 11/18/17 08:00 Resp 18 11/18/17 08:00 BP 159/79 11/18/17 05:00 Pulse Ox 92 L 11/18/17 05:00 Intake & Output 11/17/17 11/18/17 11/18/17 18:59 06:59 18:59 Intake Total 120 1030 240 Output Total 450 125 125 Balance -330 905 115 Weight 98.203 kg Intake: Intake, IV Titration 850 Amount Ampicillin-Sulbactam 3 gm 200 In Sodium Chloride 0.9% 100 ml @ 200 mls/hr IVPB Q6HR [facility] Rx#:[id number] Sodium Chloride 0.9% 1, 650 000 ml @ 75 mls/hr IV . [id number] [facility] Rx#:[id number] Oral 120 180 240 Output: Urine 450 125 125 Other: Voiding Method Urinal Urinal Urinal # Voids 1 1 1 - Exam General appearance: The patient is alert, oriented, in no acute distress. HET: Head is normocephalic and atraumatic. Pupils are equal and reactive. Oropharynx is clear without lesions. Neck: Supple without lymphadenopathy. Trachea midline. Heart: S1 S2. Regular rate and rhythm. Lungs: No crackles or wheezes are heard. Abdomen: Soft, mild tenderness bilateral upper abdomen, nondistended with bowel sounds. No peritoneal signs. No palpable organomegaly or masses. Extremities: Normal skin color and turgor. No cyanosis, rash, ulceration, clubbing, or edema. Radial and pedal pulses are 2/4 bilaterally. Neurological: No focal deficits. Strength and sensation are grossly intact. - Labs CBC & Chem 7: 11/18/17 07:43 11/18/17 07:43 Labs: Abnormal Lab Results - Last 24 Hours (Table) 11/18/17 11/18/17 Range/Units 07:43 07:43 WBC 17.2 H (3.8-10.6) k/uL RBC 4.16 L (4.30-5.90) m/uL Neutrophils # 16.0 H (1.3-7.7) k/uL Lymphocytes # 0.5 L (1.0-4.8) k/uL BUN 22 H (9-20) mg/dL Glucose 107 H (74-99) mg/dL Total Protein 5.3 L (6.3-8.2) g/dL Albumin 2.7 L (3.5-5.0) g/dL Lipase 1052 H (23-300) U/L Microbiology - Last 24 Hours (Table) 11/16/17 09:20 Blood Culture - Preliminary Blood No Growth after 24 hours 11/16/17 09:32 Blood Culture - Preliminary Blood No Growth after 24 hours Assessment and Plan (1) Pancreatitis Narrative/Plan: 82-year-old male with no history of pancreatitis admitted status post fall back pain with elevated amylase lipase consistent with acute pancreatitis etiology is unclear possible biliary pancreatitis. CT imaging reported mild stranding about the head and uncinate process of the pancreas, distended gallbladder with adjacent stranding suggesting acute acalculous cholecystitis. Ultrasound could not exclude possible sludge near the neck no biliary tree dilation noted. Current Visit: Yes Status: Acute Code(s): K85.90 - ACUTE PANCREATITIS WITHOUT NECROSIS OR INFECTION, UNSP SNOMED Code(s): 52511087 (2) Leukocytosis Current Visit: Yes Status: Acute Code(s): D72.829 - ELEVATED WHITE BLOOD CELL COUNT, UNSPECIFIED SNOMED Code(s): 688743611 Plan: 1. Diet determined by general surgery. Continue with IV antibiotics. Daily monitoring of pancreatic enzymes as well as CBC CMP. ERCP is not planned at this time. We'll continue to follow with you. Cautious IV hydration secondary to history of CHF. Will follow closely with you. Assessment and plan a care discussed with Dr. Huber
[2017-11-18] MEDS: ASPIRIN 81 MG PO SCH (13:36)
--- NOTE | 2017-11-18 14:05 | P.PN ---
Subjective Patient is seen and examined laying flat resting in bed. He continues to complain of significant abdominal pain and discomfort as well as neck pain. He states his neck has been bothering him off and on all summer and seems to be intensified since admission. Denies chest pain, shortness of breath, dizziness or palpitations. Laboratory data reviewed, WBC 17.2, hgb 13.2, plt 154, sodium 137, potassium 4.2, creatinine 0.83, liver enzymes have normalized and lipase 1052. Blood pressure 152/89 heart rate 75 afebrile and maintaining oxygen saturation on nasal cannula. Plavix has been held, last dose Wednesday night. Objective - Vital Signs Vital signs: Vital Signs Temp 99.0 F 11/18/17 12:05 Pulse 75 11/18/17 12:05 Resp 18 11/18/17 12:05 BP 152/89 11/18/17 12:05 Pulse Ox 91 L 11/18/17 12:05 Intake & Output 11/17/17 11/18/17 11/18/17 18:59 06:59 18:59 Intake Total 120 1030 240 Output Total 450 125 125 Balance -330 905 115 Weight 98.203 kg Intake: Intake, IV Titration 850 Amount Ampicillin-Sulbactam 3 gm 200 In Sodium Chloride 0.9% 100 ml @ 200 mls/hr IVPB Q6HR [facility] Rx#:[id number] Sodium Chloride 0.9% 1, 650 000 ml @ 75 mls/hr IV . [id number] [facility] Rx#:[id number] Oral 120 180 240 Output: Urine 450 125 125 Other: Voiding Method Urinal Urinal Urinal # Voids 1 1 1 - Exam GENERAL: In no acute distress. NECK: Supple without JVD or thyromegaly. LUNGS: Breath sounds clear to auscultation bilaterally. Respiration equal and unlabored. No wheezes, rales or rhonchi. Diminished bilaterally secondary to poor inspiration due to pain. HEART: Regular rate and rhythm with systolic ejection murmur at the base, no rubs or gallops. S1 and S2 heard. EXTREMITIES: Normal range of motion, no edema. No clubbing or cyanosis. Peripheral pulses intact. - Labs CBC & Chem 7: 11/18/17 07:43 11/18/17 07:43 Labs: Abnormal Lab Results - Last 24 Hours (Table) 11/18/17 11/18/17 Range/Units 07:43 07:43 WBC 17.2 H (3.8-10.6) k/uL RBC 4.16 L (4.30-5.90) m/uL Neutrophils # 16.0 H (1.3-7.7) k/uL Lymphocytes # 0.5 L (1.0-4.8) k/uL BUN 22 H (9-20) mg/dL Glucose 107 H (74-99) mg/dL Total Protein 5.3 L (6.3-8.2) g/dL Albumin 2.7 L (3.5-5.0) g/dL Lipase 1052 H (23-300) U/L Microbiology - Last 24 Hours (Table) 11/16/17 09:20 Blood Culture - Preliminary Blood No Growth after 48 hours 11/16/17 09:32 Blood Culture - Preliminary Blood No Growth after 48 hours Assessment and Plan Assessment: ASSESSMENT Acute pancreatitis Acute cholecystitis, surgery following and is recommending cholecystectomy Chronic systolic heart failure, EF 25-30%. Currently euvolemic History of coronary artery disease s/p multiple stent placements. Last 2013. Ischemic cardiomyopathy Hypertension Dyslipidemia s/p AICD placement secondary to cardiomyopathy and VT/VF PLAN Decrease amiodarone to 200 mg daily, this was his home dose. Continue surgical management of acute cholecystitis. Encouraged deep breathing and incentive spirometer use. We will continue to follow. Nurse Practitioner note has been reviewed, I agree with a documented findings and plan of care. Patient was seen and examined.
--- NOTE | 2017-11-18 14:22 | P.PN ---
Subjective Progress Note Date: 11/18/17 This is an 82-year-old male one of Dr. Hassan with a previous medical history significant for CAD post the cardiac arrest with ischemic cardiomyopathy post AICD implantation, left heart catheterization with PCI back in 2013, chronic systolic heart failure with EF 35 %, peptic ulcer disease, hyperlipidemia, hypothyroidism, osteoarthritis. Patient was admitted in February 2016 for dizziness and subsequently his ICD fired first time and it did fire again the second time V. fib V. tach was detected. ICD was interrogated and adjusted from 25-35 J. Last admission in `2016 for hyponatremia. Patient comes in to the ER with significant back pain that started last night radiated to the epigastric area. Patient also endorses nausea but no episode of vomiting. He denies any previous augmentation of severe chest pain. Since the pain did not get better patient decided to come to the ER. On evaluation in the ER patient had a lipase of 10,000-34 and an amylase of 593. LFTs suggested alkaline phosphatase 140 with normal bilirubin and AST and ALT. Patient denies history of alcoholism. Ultrasound abdomen was obtained that suggested cholecystitis. Possible sludge near the neck with wall thickening and pericholecystic fluid was seen. Echocardiogram was obtained which suggested EF of 25-30% with severe global hypokinesia.Vitals obtained this morning suggests tachycardia, blood pressure 205/137, saturating well on room air. Patient on evaluation is nauseous and having multiple bouts of vomiting uncontrolled on Zofran and Reglan. Oral medication could not be an administrated as patient was nauseous. Other pertinent labs include a lactic acid 2.3 which improved to 1. 5 in the afternoon. Troponin 1 is negative. Triglyceride 181 in August 2017. Patient's presentation is concerning for cholecystitis and pancreatitis. CT of the tendon last night suggest distended gallbladder with acute cholecystitis with stranding that about the head and uncinate process of the pancreas concerning for acute pancreatitis. Gastroenterology and surgery on consult. Patient may require cardiac clearance prior to going for surgery. Keep Plavix on hold. Cardiology evaluation pending keep patient nothing by mouth. Normal saline running at 75 mL in due to decreased ejection fraction and concern for volume overload 11/17: Patient denies having any nausea today. He denies any chest pain or shortness of breath. He does have incentive spirometry. Patient was scheduled for gallbladder surgery with Dr. Pulido this week as he needed to be off Plavix which has been postponed until Wednesday. White count has jumped up to 16.1 , creatinine is 1.12, lites within normal limits. Amylase is down to 447 and lipase is significantly improved at 2076. AST and ALT slightly elevated. Patient encouraged to increase activity. 11/18: Today, patient is complaining of neck pain which he has had for about 4 months. We are starting baclofen and tramadol. Abdominal pain is a lot better. He denies any shortness of breath at this time but he did have an episode where his pulse ox dropped down to 85% off oxygen. He is currently pulse ox a 91-92% on 2 L nasal cannula. Chest x-ray ordered. Besides the neck pain, patient is also complaining of lower back pain most likely from bed. White count remains elevated at 17.2. Liver function tests are normalized. Lipase is down to 1052. Objective - Vital Signs Vital signs: Vital Signs Temp 98.9 F 11/18/17 05:00 Pulse 72 11/18/17 05:00 Resp 18 11/18/17 05:00 BP 159/79 11/18/17 05:00 Pulse Ox 92 L 11/18/17 05:00 Intake & Output 11/17/17 11/18/17 11/18/17 18:59 06:59 18:59 Intake Total 120 1030 240 Output Total 450 125 125 Balance -330 905 115 Weight 98.203 kg Intake: Intake, IV Titration 850 Amount Ampicillin-Sulbactam 3 gm 200 In Sodium Chloride 0.9% 100 ml @ 200 mls/hr IVPB Q6HR JONO Rx#:[id number] Sodium Chloride 0.9% 1, 650 000 ml @ 75 mls/hr IV . [id number] JONO Rx#:[id number] Oral 120 180 240 Output: Urine 450 125 125 Other: Voiding Method Urinal Urinal # Voids 1 1 1 - Exam General appearance: average body habitus, mild distress, obese - EENT Eyes: PERRLA, no photophobia, dentition normal ENT: hard of hearing Ears: bilateral: normal - Neck Neck: no lymphadenopathy, normal ROM, no rigidity, no stridor Carotids: bilateral: upstroke normal Thyroid: bilateral: normal size - Respiratory Respiratory: bilateral: CTA, negative: diminished, dullness, rales, rhonchi, wheezing - Cardiovascular Rhythm: regular Heart sounds: normal: S1, S2 Abnormal Heart Sounds: systolic murmur ankle Peripheral Edema: absent: None dorsalis pedis Peripheral Pulses: bilateral: Normal - Gastrointestinal General gastrointestinal: normal bowel sounds, soft, tenderness (Right upper quadrant and epigastric region) - Integumentary Integumentary: no cellulitis, no cyanotic, no decreased turgor, no jaundiced - Neurologic Neurologic: CNII-XII intact - Musculoskeletal Musculoskeletal: gait normal, generalized weakness - Psychiatric Psychiatric: A&O x's 3, appropriate affect - Labs CBC & Chem 7: 11/18/17 07:43 11/18/17 07:43 Labs: Abnormal Lab Results - Last 24 Hours (Table) 11/17/17 11/17/17 11/18/17 Range/Units 09:25 09:25 07:43 WBC 17.1 H 17.2 H (3.8-10.6) k/uL RBC 4.12 L 4.16 L (4.30-5.90) m/uL Plt Count 149 L (150-450) k/uL Neutrophils # 15.9 H 16.0 H (1.3-7.7) k/uL Lymphocytes # 0.6 L 0.5 L (1.0-4.8) k/uL BUN 33 H (9-20) mg/dL Glucose (74-99) mg/dL AST 60 H (17-59) U/L ALT 79 H (21-72) U/L Total Protein 5.2 L (6.3-8.2) g/dL Albumin 2.7 L (3.5-5.0) g/dL Amylase 447 H* (30-110) U/L Lipase 2077 H (23-300) U/L 11/18/17 Range/Units 07:43 WBC (3.8-10.6) k/uL RBC (4.30-5.90) m/uL Plt Count (150-450) k/uL Neutrophils # (1.3-7.7) k/uL Lymphocytes # (1.0-4.8) k/uL BUN 22 H (9-20) mg/dL Glucose 107 H (74-99) mg/dL AST (17-59) U/L ALT (21-72) U/L Total Protein 5.3 L (6.3-8.2) g/dL Albumin 2.7 L (3.5-5.0) g/dL Amylase (30-110) U/L Lipase 1052 H (23-300) U/L Microbiology - Last 24 Hours (Table) 11/16/17 09:20 Blood Culture - Preliminary Blood No Growth after 24 hours 11/16/17 09:32 Blood Culture - Preliminary Blood No Growth after 24 hours Assessment and Plan Plan: 1. Acute back pain radiating to the right upper quadrant and epigastric region secondary to cholecystitis and pancreatitis. Likely acalculous cholecystitis from the CT finding ultrasound suggestive of sludge in the neck but is not clear due to bowel gas -clear liquid diet started today, fluid has to be administrated cautiously as patient has a ejection fraction 30%. Patient received 1 L of IV fluid in the ER currently on 75 mL per hour. Watch for any shortness of breath or sign of fluid overload. 2 cholecystitis. Patient on Unasyn. Blood cultures ordered. Likely secondary to gallstones though CT does not suggest any gallstones. Ultrasound concerning for sludge in the neck. Surgery consuland GI consult appreciated. Patient scheduled for cholecystectomy on Wednesday 3. Acute pancreatitis secondary to gallstoclear liquid diet Fluid administration is to be administered cautiously as patient has significant heart failure. Normal saline running at 75 mL per hour 4. h/o V. fib/V. tach and ischemic cardiomyopathy status post AICD - Continue amiodarone 200 mg po daily 5. CAD post ME with cardiac arrest status post PCI back in 2013. Continue metoprolol 25 mg orally twice every day, amlodipine 12.5 mg by mouth daily, lisinopril 5 mg by mouth daily, aspirin 81 mg orally once every day, hold Plavix for possible surgery. Plavix to be held for 5 days prior to the surgery. Dr. Snow on consult 6. Hyperlipidemia. Continue patient on low-cholesterol diet. 7. Hypertension. Continue metoprolol 25 mg orally twice every day, Imuran drawn 12.5 mg by mouth daily, lisinopril 5 mg by mouth daily 8. Post partial thyroidectomy. 9. AMD. Stable at this point in time. 10. History of PUD. Continue Protonix 40 mg orally once every day. 11. Osteoarthritis. Stable. 12. Ischemic cardiomyopathy s/p AICD Stable at this time ejection fraction similar to the previous echo 13. DVT prophylaxis. Lovenox 40 mg subcutaneously every 24 hours. 14. GI prophylaxis. Protonix 40 mg orally once every day. 15. Degenerative disc disease of the cervical spine. Baclofen and tramadol ordered. discharge plan: Return home most likely. PT and OT added. Patient to increase activity. Impression and plan of care have been directed as dictated by the signing physician. Robyn Lopez nurse practitioner acting as scribe for signing physician.
--- NOTE | 2017-11-18 14:43 | P.PN ---
Subjective Progress Note Date: 11/18/17 82-year-old male seen this morning at the bedside. Chief complaint this morning is neck pain patient states he's had pain in his neck for the past several months worse with movement of the neck currently sitting up on the edge of the bed When questioning patient currently is denying abdominal pain states it's getting better. states he is anxious to get out of bed. Denies dizziness lightheadedness chest pain or shortness of breath. Lap cholecystectomy planned for September 22. Ultrasound the abdomen reviewed the report indicates sludge near the neck with probable pericholecystic fluid. Common bile duct 0.4 patient currently is being followed by cardiology and GI service. Plavix currently is being held Objective - Vital Signs Vital signs: Vital Signs Temp 99.0 F 11/18/17 12:05 Pulse 75 11/18/17 12:05 Resp 18 11/18/17 12:05 BP 152/89 11/18/17 12:05 Pulse Ox 91 L 11/18/17 12:05 Intake & Output 11/17/17 11/18/17 11/18/17 18:59 06:59 18:59 Intake Total 120 1030 480 Output Total 450 125 125 Balance -330 905 355 Weight 98.203 kg Intake: Intake, IV Titration 850 Amount Ampicillin-Sulbactam 3 gm 200 In Sodium Chloride 0.9% 100 ml @ 200 mls/hr IVPB Q6HR JONO Rx#:[id number] Sodium Chloride 0.9% 1, 650 000 ml @ 75 mls/hr IV . [id number] JONO Rx#:[id number] Oral 120 180 480 Output: Urine 450 125 125 Other: Voiding Method Urinal Urinal Urinal # Voids 1 1 1 - Exam Physical exam 81-year-old male currently is denying chest pain dizziness lightheadedness. Chief complaint is neck pain this morning sitting up on the edge of the bed patient reports abdominal pain improving Lungs posterior diminished at the bases otherwise adequate air movement nasal cannula 2 L sats are 92% no shortness of breath noted with conversation pulse ox sat on room air 84% Heart S1-S2 audible regular Abdomen mild tenderness right upper quadrant radiates to the back no nausea no vomiting tolerating diet no stool nondistended bowel tones present Extremities no edema noted - Labs CBC & Chem 7: 11/18/17 07:43 11/18/17 07:43 Labs: Abnormal Lab Results - Last 24 Hours (Table) 11/18/17 11/18/17 Range/Units 07:43 07:43 WBC 17.2 H (3.8-10.6) k/uL RBC 4.16 L (4.30-5.90) m/uL Neutrophils # 16.0 H (1.3-7.7) k/uL Lymphocytes # 0.5 L (1.0-4.8) k/uL BUN 22 H (9-20) mg/dL Glucose 107 H (74-99) mg/dL Total Protein 5.3 L (6.3-8.2) g/dL Albumin 2.7 L (3.5-5.0) g/dL Lipase 1052 H (23-300) U/L Microbiology - Last 24 Hours (Table) 11/16/17 09:20 Blood Culture - Preliminary Blood No Growth after 48 hours 11/16/17 09:32 Blood Culture - Preliminary Blood No Growth after 48 hours Assessment and Plan Assessment: Impression Present on admission right upper quadrant abdominal pain with a CT abdomen and pelvis report gallbladder distended with adjacent stranding suggesting acute cholecystitis Present on admission elevated lipase pancreatitis unclear etiology possible biliary pancreatitis Known coronary artery disease with prior coronary stenting on Plavix Cardiomyopathy with AICD Peptic ulcer disease Prior to admission fall did not lose consciousness strike left forehead and left shoulder Plan Cardiology is recommending holding Plavix for 5 days before surgery Plavix on hold Repeat labs in the morning Scheduled for a lap cholecystectomy November 22Wednesday Will follow closely with you Further surgical recommendations pending continue recommendations by cardiology and GI service DVT and GI prophylaxis Per GI service ERCP is not planned at this time Increase activity increase use of the incentive spirometer Defer to the attending to address medical issues as they arise The above impression and plan of care have been discussed and directed by signing physician. Glenny Lunsford nurse practitioner acting as scribe for signing physician.
--- NOTE | 2017-11-18 20:34 | XR ---
EXAMINATION TYPE: XR chest 2V DATE OF EXAM: 11/18/2017 COMPARISON: November 16, 2017 HISTORY: Hypoxemia TECHNIQUE: Frontal and lateral views of the chest are obtained. FINDINGS: There is pulmonary interstitial and alveolar edema. Heart is enlarged. There is blunting o f costophrenic angles. There is left axillary pacemaker noted. IMPRESSION: Pulmonary edema and pleural fluid consistent with congestive heart failure that is much worse than last exam.
[2017-11-18] MEDS: ATORVASTATIN 80 MG TAB PO SCH (21:15)
[2017-11-19] MEDS: traMADol 50 MG TAB PO PRN ×2 (05:42→22:48)
[2017-11-19] MEDS: ONDANSETRON 4 MG/2 ML VIAL IVP PRN (05:43)
[2017-11-19] MEDS: AMPICILLIN-SULBACTAM 3 GM in SODIUM CHLORIDE 0.9% 100 ML IVPB SCH ×3 (05:46→18:18)
[2017-11-19] MEDS: SODIUM CHLORIDE 0.9% 1,000 ML IV SCH (05:46)
--- NOTE | 2017-11-19 07:29 | P.PN ---
Subjective Progress Note Date: 11/19/17 Principal diagnosis: Acute pancreatitis Feels better. Morning chemistries pending. Afebrile. Abdominal pain improving. Cholecystectomy planned for Wednesday. Ultrasound abdomen possible sludge near the neck with probable pericholecystic fluid. CBD 0.4 cm. Objective - Vital Signs Vital signs: Vital Signs Temp 98.6 F 11/19/17 05:00 Pulse 74 11/19/17 05:00 Resp 15 11/19/17 05:00 BP 157/72 11/19/17 05:00 Pulse Ox 92 L 11/19/17 05:00 Intake & Output 11/18/17 11/19/17 11/19/17 18:59 06:59 18:59 Intake Total 1820 1160 Output Total 250 Balance 1570 1160 Intake: Intake, IV Titration 500 800 Amount Ampicillin-Sulbactam 3 gm 100 200 In Sodium Chloride 0.9% 100 ml @ 200 mls/hr IVPB Q6HR JONO Rx#:[id number] Sodium Chloride 0.9% 1, 600 000 ml @ 50 mls/hr IV . Q20H JONO Rx#:[id number] Sodium Chloride 0.9% 1, 400 000 ml @ 75 mls/hr IV . [id number] JONO Rx#:[id number] Oral 1320 360 Output: Urine 250 Other: Voiding Method Urinal Urinal Diaper Incontinent # Voids 4 2 - Exam General appearance: The patient is alert, oriented, in no acute distress. Ecchymosis to forehead. HET: Head is normocephalic and atraumatic. Pupils are equal and reactive. Oropharynx is clear without lesions. Neck: Supple without lymphadenopathy. Trachea midline. Heart: S1 S2. Regular rate and rhythm. Lungs: No crackles or wheezes are heard. Abdomen: Soft, mild tenderness bilateral upper abdomen/right upper quadrant, nondistended with bowel sounds. No peritoneal signs. No palpable organomegaly or masses. Extremities: Normal skin color and turgor. No cyanosis, rash, ulceration, clubbing, or edema. Radial and pedal pulses are 2/4 bilaterally. Neurological: No focal deficits. Strength and sensation are grossly intact. - Labs CBC & Chem 7: 11/18/17 07:43 11/18/17 07:43 Labs: Abnormal Lab Results - Last 24 Hours (Table) 11/18/17 11/18/17 Range/Units 07:43 07:43 WBC 17.2 H (3.8-10.6) k/uL RBC 4.16 L (4.30-5.90) m/uL Neutrophils # 16.0 H (1.3-7.7) k/uL Lymphocytes # 0.5 L (1.0-4.8) k/uL BUN 22 H (9-20) mg/dL Glucose 107 H (74-99) mg/dL Total Protein 5.3 L (6.3-8.2) g/dL Albumin 2.7 L (3.5-5.0) g/dL Lipase 1052 H (23-300) U/L Microbiology - Last 24 Hours (Table) 11/16/17 09:20 Blood Culture - Preliminary Blood No Growth after 48 hours 11/16/17 09:32 Blood Culture - Preliminary Blood No Growth after 48 hours Assessment and Plan (1) Pancreatitis Narrative/Plan: 82-year-old male with no history of pancreatitis admitted status post fall back pain with elevated amylase lipase consistent with acute pancreatitis etiology is unclear possible biliary pancreatitis. CT imaging reported mild stranding about the head and uncinate process of the pancreas, distended gallbladder with adjacent stranding suggesting acute acalculous cholecystitis. Ultrasound could not exclude possible sludge near the neck no biliary tree dilation noted. Current Visit: Yes Status: Acute Code(s): K85.90 - ACUTE PANCREATITIS WITHOUT NECROSIS OR INFECTION, UNSP SNOMED Code(s): 18691569 (2) Leukocytosis Current Visit: Yes Status: Acute Code(s): D72.829 - ELEVATED WHITE BLOOD CELL COUNT, UNSPECIFIED SNOMED Code(s): 751796108 Plan: 1. Diet determined by general surgery. Continue with IV antibiotics. Daily monitoring of pancreatic enzymes as well as CBC CMP. ERCP is not planned at this time. We'll continue to follow with you. Cautious IV hydration secondary to history of CHF. Will follow closely with you. Assessment and plan a care discussed with Dr. Huber
[2017-11-19 07:47] LABS: Basophils % (A) 0 %; Eosinophils # (A) 0.1 k/uL (0-0.7); Eosinophils % (A) 1 %; HCT 38.9 % (39.0-53.0); HGB 12.2 gm/dL (13.0-17.5); Lymphocytes # (A) 0.5 k/uL (1.0-4.8); Lymphocytes % (A) 3 %; MCH 31.9 pg (25.0-35.0); MCHC 31.4 g/dL (31.0-37.0); MCV 101.6 fL (80.0-100.0); Mean Platelet Volume 7.6; Monocytes # (A) 0.7 k/uL (0-1.0); Monocytes % (A) 4 %; Neutrophils # (A) 14.7 k/uL (1.3-7.7); Neutrophils % (A) 90 %; Platelet Count 154 k/uL (150-450); RBC 3.82 m/uL (4.30-5.90); RDW 12.8 % (11.5-15.5); WBC 16.3 k/uL (3.8-10.6)
[2017-11-19 08:03] LABS: ALT 48 U/L (21-72); AST 29 U/L (17-59); Albumin 2.5 g/dL (3.5-5.0); Alkaline Phosphatase 95 U/L (38-126); Anion Gap 8 mmol/L; Blood Urea Nitrogen 14 mg/dL (9-20); Calcium 8.5 mg/dL (8.4-10.2); Carbon Dioxide 23 mmol/L (22-30); Chloride 104 mmol/L (98-107); Glucose 85 mg/dL (74-99); Lipase 785 U/L (23-300); Potassium 3.9 mmol/L (3.5-5.1); Sodium 135 mmol/L (137-145); Total Bilirubin 1.4 mg/dL (0.2-1.3); Total Protein 4.9 g/dL (6.3-8.2)
--- NOTE | 2017-11-19 08:36 | P.PN ---
Subjective Mr. Carrillo is seen and examined laying flat in bed. Past medical history significant for coronary artery disease s/p stenting of mid-LAD 1993 x2, mid RCA and mid PLB 2001 and mid RCA, proxRCA 2013. He also has ischemic cardiomyopathy, chronic systolic heart failure, dyslipidemia, hypertension, hypothyroid, history of v-fib and permanent single chamber ICD in place. He follows with Dr. Kearns in the office. He states his abdominal pain seems to be improving mildly. He denies chest pain, shortness of breath, dizziness or palpitations. Laboratory data reviewed, WBC 16.3, hemoglobin 12.2, platelets 154, sodium 135, potassium 3.9, creatinine 0.75, total bilirubin 1.4, AST 29, ALT 48, lipase down to 785. Blood pressure 157/72 heart rate 74 afebrile maintaining oxygen saturation on nasal cannula. Objective - Vital Signs Vital signs: Vital Signs Temp 98.6 F 11/19/17 05:00 Pulse 74 11/19/17 05:00 Resp 15 11/19/17 05:00 BP 157/72 11/19/17 05:00 Pulse Ox 92 L 11/19/17 05:00 Intake & Output 11/18/17 11/19/17 11/19/17 18:59 06:59 18:59 Intake Total 1820 1160 Output Total 250 Balance 1570 1160 Intake: Intake, IV Titration 500 800 Amount Ampicillin-Sulbactam 3 gm 100 200 In Sodium Chloride 0.9% 100 ml @ 200 mls/hr IVPB Q6HR JONO Rx#:[id number] Sodium Chloride 0.9% 1, 600 000 ml @ 50 mls/hr IV . Q20H JONO Rx#:[id number] Sodium Chloride 0.9% 1, 400 000 ml @ 75 mls/hr IV . [id number] JONO Rx#:[id number] Oral 1320 360 Output: Urine 250 Other: Voiding Method Urinal Urinal Diaper Incontinent # Voids 4 2 - Exam GENERAL: In no acute distress. NECK: Supple without JVD or thyromegaly. LUNGS: Breath sounds clear to auscultation bilaterally. Respiration equal and unlabored. No wheezes, rales or rhonchi. HEART: Regular rate and rhythm with systolic ejection murmur at the base, no rubs or gallops. S1 and S2 heard. EXTREMITIES: Normal range of motion, no edema. No clubbing or cyanosis. Peripheral pulses intact. - Labs CBC & Chem 7: 11/19/17 06:58 11/19/17 06:58 Labs: Abnormal Lab Results - Last 24 Hours (Table) 11/19/17 11/19/17 Range/Units 06:58 06:58 WBC 16.3 H (3.8-10.6) k/uL RBC 3.82 L (4.30-5.90) m/uL Hgb 12.2 L (13.0-17.5) gm/dL Hct 38.9 L (39.0-53.0) % MCV 101.6 H (80.0-100.0) fL Neutrophils # 14.7 H (1.3-7.7) k/uL Lymphocytes # 0.5 L (1.0-4.8) k/uL Sodium 135 L (137-145) mmol/L Total Bilirubin 1.4 H (0.2-1.3) mg/dL Total Protein 4.9 L (6.3-8.2) g/dL Albumin 2.5 L (3.5-5.0) g/dL Lipase 785 H (23-300) U/L Microbiology - Last 24 Hours (Table) 11/16/17 09:20 Blood Culture - Preliminary Blood No Growth after 48 hours 11/16/17 09:32 Blood Culture - Preliminary Blood No Growth after 48 hours Assessment and Plan Assessment: ASSESSMENT Acute pancreatitis Acute cholecystitis, surgery following and is recommending cholecystectomy Leukocytosis Chronic systolic heart failure, EF 25-30%. Currently euvolemic History of coronary artery disease s/p multiple stent placements. Last 2013. Ischemic cardiomyopathy Hypertension Dyslipidemia s/p AICD placement secondary to cardiomyopathy and VT/VF PLAN Increase lisinopril to 10 mg BID. Repeat CMP in the morning. Surgery planned for Wednesday. Continue surgical management of acute cholecystitis. Encouraged deep breathing and incentive spirometer use. Appears euvolemic and has no symptoms of angina. We will continue to follow. Nurse Practitioner note has been reviewed, I agree with a documented findings and plan of care. Patient was seen and examined.
[2017-11-19] MEDS: SPIRONOLACTONE 25 MG TAB PO SCH (08:38)
[2017-11-19] MEDS: ASPIRIN 81 MG PO SCH (08:38)
[2017-11-19] MEDS: AMIODARONE 200 MG TAB PO SCH (08:38)
[2017-11-19] MEDS: METOPROLOL TARTRATE 25 MG TAB PO SCH ×2 (08:38→22:27)
[2017-11-19] MEDS: LISINOPRIL 10 MG TAB PO SCH ×2 (08:39→22:27)
[2017-11-19] MEDS: PANTOPRAZOLE 40 MG/10 ML VIAL IVP SCH (08:39)
[2017-11-19] MEDS: FLUTICASONE 50MCG/SPRAY NASAL 16GM EA NOSTRIL SCH (08:40)
[2017-11-19] MEDS ORDERED: ONDANSETRON 4 MG/2 ML VIAL IVP ONE (10:33)
[2017-11-19] MEDS ORDERED: MIDAZOLAM 2 MG/2 ML VIAL IV PRN (10:33)
[2017-11-19] MEDS ORDERED: DEXAMETHASONE SOD PHOSPHATE 10 MG/ML 1 ML VIAL IV ONE (10:33)
[2017-11-19] MEDS ORDERED: fentaNYL (PF) 50 MCG/ML 2 ML AMP IV PRN (10:33)
--- NOTE | 2017-11-19 10:52 | P.PN ---
<Veronica Lunsfordjosh Chan - Last Filed: 11/19/17 10:43> Subjective Progress Note Date: 11/19/17 82-year-old male seen at the bedside patient states continues to have intermittent episodes of right upper quadrant abdominal pain. Total bili 1.4 lipase is down 785 admitting lipase 2076 patient states the neck discomfort has improved the white count is down 16.3 plan is for WednesdayNovember 22 to undergo a lap cholecystectomy. Ultrasound the abdomen showed possible sludge near the neck with probable pericholecystic fluid Objective - Vital Signs Vital signs: Vital Signs Temp 98.6 F 11/19/17 05:00 Pulse 74 11/19/17 05:00 Resp 15 11/19/17 05:00 BP 157/72 11/19/17 05:00 Pulse Ox 94 L 11/19/17 09:10 Intake & Output 11/18/17 11/19/17 11/19/17 18:59 06:59 18:59 Intake Total 1820 1160 Output Total 250 Balance 1570 1160 Intake: Intake, IV Titration 500 800 Amount Ampicillin-Sulbactam 3 gm 100 200 In Sodium Chloride 0.9% 100 ml @ 200 mls/hr IVPB Q6HR [facility] Rx#:[id number] Sodium Chloride 0.9% 1, 600 000 ml @ 50 mls/hr IV . Q20H [facility] Rx#:[id number] Sodium Chloride 0.9% 1, 400 000 ml @ 75 mls/hr IV . [id number] [facility] Rx#:[id number] Oral 1320 360 Output: Urine 250 Other: Voiding Method Urinal Urinal Diaper Incontinent # Voids 4 2 - Exam Physical exam 81-year-old male currently reports has intermittent episodes of right upper quadrant abdominal pain Lungs posterior diminished at the bases otherwise adequate air movement nasal cannula 2 L sats are 94% no shortness of breath noted Heart S1-S2 audible regular denying chest pain Abdomen mild tenderness right upper quadrant radiates to the back no nausea no vomiting tolerating diet no stool nondistended bowel tones present Extremities no edema noted - Labs CBC & Chem 7: 11/19/17 06:58 11/19/17 06:58 Labs: Abnormal Lab Results - Last 24 Hours (Table) 11/19/17 11/19/17 Range/Units 06:58 06:58 WBC 16.3 H (3.8-10.6) k/uL RBC 3.82 L (4.30-5.90) m/uL Hgb 12.2 L (13.0-17.5) gm/dL Hct 38.9 L (39.0-53.0) % MCV 101.6 H (80.0-100.0) fL Neutrophils # 14.7 H (1.3-7.7) k/uL Lymphocytes # 0.5 L (1.0-4.8) k/uL Sodium 135 L (137-145) mmol/L Total Bilirubin 1.4 H (0.2-1.3) mg/dL Total Protein 4.9 L (6.3-8.2) g/dL Albumin 2.5 L (3.5-5.0) g/dL Lipase 785 H (23-300) U/L Microbiology - Last 24 Hours (Table) 11/16/17 09:20 Blood Culture - Preliminary Blood No Growth after 48 hours 11/16/17 09:32 Blood Culture - Preliminary Blood No Growth after 48 hours Assessment and Plan Assessment: Impression Present on admission right upper quadrant abdominal pain with a CT abdomen and pelvis report gallbladder distended with adjacent stranding suggesting acute cholecystitis Present on admission elevated lipase pancreatitis unclear etiology possible biliary pancreatitis Known coronary artery disease with prior coronary stenting on Plavix Cardiomyopathy with AICD Peptic ulcer disease Prior to admission fall did not lose consciousness strike left forehead and left shoulder Plan Cardiology is recommending holding Plavix for 5 days before surgery currently on hold Repeat labs in the morning Scheduled for a lap cholecystectomy November 22Wednesday Will follow closely with you Further surgical recommendations pendi DVT and GI prophylaxis Per GI service ERCP is not planned at this time Increase activity increase use of the incentive spirometer Progress note dictated for Dr. Gallardo rounding on behalf of Dr. terrazas The above impression and plan of care have been discussed and directed by signing physician. Glenny Lunsford nurse practitioner acting as scribe for signing physician. <Dhruv Gallardo - Last Filed: 11/19/17 13:23> Objective - Vital Signs Vital signs: Vital Signs Temp 97.1 F L 11/19/17 12:35 Pulse 67 11/19/17 12:35 Resp 20 11/19/17 12:35 BP 153/81 11/19/17 12:35 Pulse Ox 93 L 11/19/17 13:18 Intake & Output 11/18/17 11/19/17 11/19/17 18:59 06:59 18:59 Intake Total 1820 1160 Output Total 250 Balance 1570 1160 Intake: Intake, IV Titration 500 800 Amount Ampicillin-Sulbactam 3 gm 100 200 In Sodium Chloride 0.9% 100 ml @ 200 mls/hr IVPB Q6HR [facility] Rx#:[id number] Sodium Chloride 0.9% 1, 600 000 ml @ 50 mls/hr IV . Q20H [facility] Rx#:[id number] Sodium Chloride 0.9% 1, 400 000 ml @ 75 mls/hr IV . [id number] [facility] Rx#:[id number] Oral 1320 360 Output: Urine 250 Other: Voiding Method Urinal Urinal Diaper Incontinent # Voids 4 2 - Labs CBC & Chem 7: 11/19/17 06:58 11/19/17 06:58 Labs: Abnormal Lab Results - Last 24 Hours (Table) 11/19/17 11/19/17 11/19/17 Range/Units 06:58 06:58 06:58 WBC 16.3 H (3.8-10.6) k/uL RBC 3.82 L (4.30-5.90) m/uL Hgb 12.2 L (13.0-17.5) gm/dL Hct 38.9 L (39.0-53.0) % MCV 101.6 H (80.0-100.0) fL Neutrophils # 14.7 H (1.3-7.7) k/uL Lymphocytes # 0.5 L (1.0-4.8) k/uL Sodium 135 L (137-145) mmol/L Total Bilirubin 1.4 H (0.2-1.3) mg/dL Troponin I 0.076 H* (0.000-0.034) ng/mL Total Protein 4.9 L (6.3-8.2) g/dL Albumin 2.5 L (3.5-5.0) g/dL Lipase 785 H (23-300) U/L Microbiology - Last 24 Hours (Table) 11/16/17 09:20 Blood Culture - Preliminary Blood No Growth after 72 hours 11/16/17 09:32 Blood Culture - Preliminary Blood No Growth after 72 hours Assessment and Plan Assessment: As above. Patient still having mild abdominal discomfort. Continue antibiotics. Continue liquid diet. Lap bryce tenderly scheduled Wednesday.
[2017-11-19] MEDS: LACTATED RINGERS 1,000 ML IV SCH (12:59)
[2017-11-19] MEDS: FUROSEMIDE 10 MG/ML 2 ML VIAL IV SCH ×2 (13:11→22:30)
--- NOTE | 2017-11-19 14:20 | P.PN ---
Progress Note - Text Re-evaluated patient as requested per nursing for low pulse ox noted on routine vital sign check, on 2 liters sating at 86%. Upon walking in the room he is seen laying flat in bed with granddaughter at the bedside. Respirations equal and unlabored. He continues to deny shortness of breath, chest pain, dizziness or palpitations. Oxygen level improved when he was woken up and sat upright and increased oxygen to 4 liters. IV lasix has been added. Lungs diminished with no rales, rhonchi or wheezing noted.
--- NOTE | 2017-11-19 14:43 | P.PN ---
Subjective Progress Note Date: 11/19/17 This is an 82-year-old male one of Dr. Hassan with a previous medical history significant for CAD post the cardiac arrest with ischemic cardiomyopathy post AICD implantation, left heart catheterization with PCI back in 2013, chronic systolic heart failure with EF 35 %, peptic ulcer disease, hyperlipidemia, hypothyroidism, osteoarthritis. Patient was admitted in February 2016 for dizziness and subsequently his ICD fired first time and it did fire again the second time V. fib V. tach was detected. ICD was interrogated and adjusted from 25-35 J. Last admission in `2016 for hyponatremia. Patient comes in to the ER with significant back pain that started last night radiated to the epigastric area. Patient also endorses nausea but no episode of vomiting. He denies any previous augmentation of severe chest pain. Since the pain did not get better patient decided to come to the ER. On evaluation in the ER patient had a lipase of 10,000-34 and an amylase of 593. LFTs suggested alkaline phosphatase 140 with normal bilirubin and AST and ALT. Patient denies history of alcoholism. Ultrasound abdomen was obtained that suggested cholecystitis. Possible sludge near the neck with wall thickening and pericholecystic fluid was seen. Echocardiogram was obtained which suggested EF of 25-30% with severe global hypokinesia.Vitals obtained this morning suggests tachycardia, blood pressure 205/137, saturating well on room air. Patient on evaluation is nauseous and having multiple bouts of vomiting uncontrolled on Zofran and Reglan. Oral medication could not be an administrated as patient was nauseous. Other pertinent labs include a lactic acid 2.3 which improved to 1. 5 in the afternoon. Troponin 1 is negative. Triglyceride 181 in August 2017. Patient's presentation is concerning for cholecystitis and pancreatitis. CT of the tendon last night suggest distended gallbladder with acute cholecystitis with stranding that about the head and uncinate process of the pancreas concerning for acute pancreatitis. Gastroenterology and surgery on consult. Patient may require cardiac clearance prior to going for surgery. Keep Plavix on hold. Cardiology evaluation pending keep patient nothing by mouth. Normal saline running at 75 mL in due to decreased ejection fraction and concern for volume overload 11/17: Patient denies having any nausea today. He denies any chest pain or shortness of breath. He does have incentive spirometry. Patient was scheduled for gallbladder surgery with Dr. Pulido this week as he needed to be off Plavix which has been postponed until Wednesday. White count has jumped up to 16.1 , creatinine is 1.12, lites within normal limits. Amylase is down to 447 and lipase is significantly improved at 2076. AST and ALT slightly elevated. Patient encouraged to increase activity. 11/18: Today, patient is complaining of neck pain which he has had for about 4 months. We are starting baclofen and tramadol. Abdominal pain is a lot better. He denies any shortness of breath at this time but he did have an episode where his pulse ox dropped down to 85% off oxygen. He is currently pulse ox a 91-92% on 2 L nasal cannula. Chest x-ray ordered. Besides the neck pain, patient is also complaining of lower back pain most likely from bed. White count remains elevated at 17.2. Liver function tests are normalized. Lipase is down to 1052. 11/19: Patient's family is at bedside and concerned that he has some slurred speech. No slurred speech noted. Generalized weakness. Thinks he pulled a muscle when he was getting up to the chair. Baclofen was started yesterday which will be discontinued. He states that he is feeling tired. Chest x-ray shows pulmonary edema and pleural fluid consistent with congestive heart failure is much worse than last exam. IV fluids will be completely discontinued and IV Lasix started. The troponin has been ordered which is 0.076 and cardiology notified. Discussed in detail with the patient that he has high risk during surgery and may require intubation and ICU care after surgery. Patient does understand this. Surgery is currently scheduled for Wednesday with Dr. Pulido. Objective - Vital Signs Vital signs: Vital Signs Temp 98.6 F 11/19/17 05:00 Pulse 74 11/19/17 05:00 Resp 15 11/19/17 05:00 BP 157/72 11/19/17 05:00 Pulse Ox 94 L 11/19/17 09:10 Intake & Output 11/18/17 11/19/17 11/19/17 18:59 06:59 18:59 Intake Total 1820 1160 Output Total 250 Balance 1570 1160 Intake: Intake, IV Titration 500 800 Amount Ampicillin-Sulbactam 3 gm 100 200 In Sodium Chloride 0.9% 100 ml @ 200 mls/hr IVPB Q6HR [facility] Rx#:[id number] Sodium Chloride 0.9% 1, 600 000 ml @ 50 mls/hr IV . Q20H [facility] Rx#:[id number] Sodium Chloride 0.9% 1, 400 000 ml @ 75 mls/hr IV . [id number] [facility] Rx#:[id number] Oral 1320 360 Output: Urine 250 Other: Voiding Method Urinal Urinal Diaper Incontinent # Voids 4 2 - Exam General appearance: average body habitus, mild distress, obese - EENT Eyes: PERRLA, no photophobia, dentition normal ENT: hard of hearing Ears: bilateral: normal - Neck Neck: no lymphadenopathy, normal ROM, no rigidity, no stridor Carotids: bilateral: upstroke normal Thyroid: bilateral: normal size - Respiratory Respiratory: bilateral: CTA, negative: diminished, dullness, rales, rhonchi, wheezing - Cardiovascular Rhythm: regular Heart sounds: normal: S1, S2 Abnormal Heart Sounds: systolic murmur ankle Peripheral Edema: absent: None dorsalis pedis Peripheral Pulses: bilateral: Normal - Gastrointestinal General gastrointestinal: normal bowel sounds, soft, tenderness (Right upper quadrant and epigastric region) - Integumentary Integumentary: no cellulitis, no cyanotic, no decreased turgor, no jaundiced - Neurologic Neurologic: CNII-XII intact - Musculoskeletal Musculoskeletal: gait normal, generalized weakness - Psychiatric Psychiatric: A&O x's 3, appropriate affect - Labs CBC & Chem 7: 11/19/17 06:58 11/19/17 06:58 Labs: Abnormal Lab Results - Last 24 Hours (Table) 11/19/17 11/19/17 Range/Units 06:58 06:58 WBC 16.3 H (3.8-10.6) k/uL RBC 3.82 L (4.30-5.90) m/uL Hgb 12.2 L (13.0-17.5) gm/dL Hct 38.9 L (39.0-53.0) % MCV 101.6 H (80.0-100.0) fL Neutrophils # 14.7 H (1.3-7.7) k/uL Lymphocytes # 0.5 L (1.0-4.8) k/uL Sodium 135 L (137-145) mmol/L Total Bilirubin 1.4 H (0.2-1.3) mg/dL Total Protein 4.9 L (6.3-8.2) g/dL Albumin 2.5 L (3.5-5.0) g/dL Lipase 785 H (23-300) U/L Microbiology - Last 24 Hours (Table) 11/16/17 09:20 Blood Culture - Preliminary Blood No Growth after 48 hours 11/16/17 09:32 Blood Culture - Preliminary Blood No Growth after 48 hours Assessment and Plan Plan: 1. Acute back pain radiating to the right upper quadrant and epigastric region secondary to cholecystitis and pancreatitis. Likely acalculous cholecystitis from the CT finding ultrasound suggestive of sludge in the neck but is not clear due to bowel gas -clear liquid diet started today, fluid has to be administrated cautiously as patient has a ejection fraction 30%. Patient received 1 L of IV fluid in the ER and IV fluids discontinued. 2 cholecystitis. Patient on Unasyn. Blood cultures ordered. Likely secondary to gallstones though CT does not suggest any gallstones. Ultrasound concerning for sludge in the neck. Surgery consuland GI consult appreciated. Patient scheduled for cholecystectomy on Wednesday 3. Acute pancreatitis secondary to gallstones full liquid diet 4. h/o V. fib/V. tach and ischemic cardiomyopathy status post AICD with acute on chronic systolic heart failure. IV Lasix started. IV fluids discontinued. - Continue amiodarone 200 mg po daily 5. CAD post MD with cardiac arrest status post PCI back in 2013. Continue metoprolol 25 mg orally twice every day, amlodipine 12.5 mg by mouth daily, lisinopril 5 mg by mouth daily, aspirin 81 mg orally once every day, hold Plavix for possible surgery. Plavix to be held for 5 days prior to the surgery. Dr. Snow on consult 6. Hyperlipidemia. Continue patient on low-cholesterol diet. 7. Hypertension. Continue metoprolol 25 mg orally twice every day, Imuran drawn 12.5 mg by mouth daily, lisinopril 5 mg by mouth daily 8. Post partial thyroidectomy. 9. AMD. Stable at this point in time. 10. History of PUD. Continue Protonix 40 mg orally once every day. 11. Osteoarthritis. Stable. 12. Ischemic cardiomyopathy s/p AICD 13. DVT prophylaxis. Lovenox 40 mg subcutaneously every 24 hours. 14. GI prophylaxis. Protonix 40 mg orally once every day. 15. Degenerative disc disease of the cervical spine. Baclofen continued. Continue tramadol as needed. discharge plan: To be determined. PT and OT added. Impression and plan of care have been directed as dictated by the signing physician. Robyn Lopez nurse practitioner acting as scribe for signing physician.
[2017-11-19] MEDS: ATORVASTATIN 80 MG TAB PO SCH (22:27)
[2017-11-20] MEDS: AMPICILLIN-SULBACTAM 3 GM in SODIUM CHLORIDE 0.9% 100 ML IVPB SCH ×5 (00:28→23:26)
[2017-11-20 08:10] LABS: HCT 35.5 % (39.0-53.0); HGB 12.1 gm/dL (13.0-17.5); MCH 32.4 pg (25.0-35.0); MCHC 34.1 g/dL (31.0-37.0); Mean Platelet Volume 7.5; Platelet Count 159 k/uL (150-450); RBC 3.74 m/uL (4.30-5.90); RDW 12.7 % (11.5-15.5); WBC 10.4 k/uL (3.8-10.6)
[2017-11-20 08:22] LABS: ALT 41 U/L (21-72); AST 24 U/L (17-59); Albumin 2.4 g/dL (3.5-5.0); Alkaline Phosphatase 86 U/L (38-126); Anion Gap 7 mmol/L; Blood Urea Nitrogen 18 mg/dL (9-20); Calcium 8.6 mg/dL (8.4-10.2); Carbon Dioxide 25 mmol/L (22-30); Chloride 103 mmol/L (98-107); Glucose 103 mg/dL (74-99); Lipase 525 U/L (23-300); Potassium 4.2 mmol/L (3.5-5.1); Sodium 135 mmol/L (137-145); Total Bilirubin 0.8 mg/dL (0.2-1.3); Total Protein 4.9 g/dL (6.3-8.2)
[2017-11-20] MEDS: SPIRONOLACTONE 25 MG TAB PO SCH (09:02)
[2017-11-20] MEDS: METOPROLOL TARTRATE 25 MG TAB PO SCH ×2 (09:02→20:24)
[2017-11-20] MEDS: ASPIRIN 81 MG PO SCH (09:02)
[2017-11-20] MEDS: PANTOPRAZOLE 40 MG/10 ML VIAL IVP SCH (09:02)
[2017-11-20] MEDS: LISINOPRIL 10 MG TAB PO SCH ×2 (09:02→20:24)
[2017-11-20] MEDS: AMIODARONE 200 MG TAB PO SCH (09:02)
[2017-11-20] MEDS: FLUTICASONE 50MCG/SPRAY NASAL 16GM EA NOSTRIL SCH (09:03)
[2017-11-20] MEDS: FUROSEMIDE 10 MG/ML 2 ML VIAL IV SCH ×2 (10:00→20:22)
--- NOTE | 2017-11-20 10:39 | PN ---
PROGRESS NOTE DATE OF DICTATION: Patient is an 82-year-old pleasant white male admitted to the hospital with acute pancreatitis. He presented with severe epigastric and right upper quadrant abdominal pain with elevated amylase and lipase, which are gradually improving. This morning he states that the abdominal pain has significantly improved. He still has some discomfort in the right upper quadrant area. Tolerating diet reasonably well. He reports no fever, chills, night sweats. PHYSICAL EXAMINATION: He appears comfortable. No apparent distress. VITAL SIGNS: Stable. Blood pressure is 178/75, pulse 68, temperature 98.3. HEENT examination unremarkable. Conjunctivae are pink. Sclerae anicteric. Oral cavity no lesions. NECK: No JVD or lymph node enlargement. CHEST: Clear to auscultation. HEART: Regular rate and rhythm. ABDOMEN: Soft. There was minimal tenderness in the right upper quadrant area. Mild tenderness in the epigastric area. Rest of the abdomen was benign. Bowel sounds are positive. No organomegaly. EXTREMITIES: No pedal edema. SKIN: No rashes. NEURO: He is alert and oriented x3. Lipase is down to 525. AST, ALT, total bilirubin and alkaline phosphatase are normal. WBC 10.4, hemoglobin 12.1, and platelets are normal. Basic metabolic panel is within normal limits. IMPRESSION: Acute pancreatitis, first episode, gradually improving. Lipase is down to 525. Clinically patient's symptoms have significantly improved. Workup revealed possible sludge in the gallbladder neck and Surgery is following the patient closely. RECOMMENDATIONS: 1. Continue with current symptomatic and supportive care. 2. Continue with a full liquid diet. 3. Patient is already scheduled for gallbladder surgery on Wednesday by Dr. Pulido. 4. No indication for ERCP. At this time we will sign off. Please call us if needed. Thank you for this consultation. MMODL / IJN: [id number] /
[2017-11-20] MEDS: LACTATED RINGERS 1,000 ML IV SCH (11:18)
--- NOTE | 2017-11-20 12:46 | P.PN ---
Subjective Progress Note Date: 11/20/17 CHIEF COMPLAINT: Cholecystitis HISTORY OF PRESENT ILLNESS: The patient is a very pleasant 82-year-old male who presents with history of cholecystitis. At this time, cardiac assessment undergoing. He is tolerating low-fat diet. No further reports of abdominal pain. PHYSICAL EXAM: VITAL SIGNS: Currently stable. GENERAL: Well-developed in no acute distress. HEENT: No sclera icterus. Extraocular movements grossly intact. Moist buccal mucosa. Ecchymosis along the orbital eye and forehead from recent trauma NECK: Supple without lymphadenopathy. CHEST: Non-labored respirations and equal bilateral excursions. CARDIOVASCULAR: Regular rate with regular rhythm. ABDOMEN: Protuberant, soft, no peritonitis. Non-distended. Number tenderness of the right upper quadrant. MUSCULOSKELETAL: No clubbing, cyanosis or edema. NEUROLOGIC: No focal or lateralizing signs. Cranial nerves II through XII grossly intact. PSYCH: Alert and oriented to person, place and time. SKIN: Well perfused. Good skin turgor. LABS: Reviewed ASSESSMENT: 1. Cholecystitis PLAN: 1. Patient tentatively anticipate surgery for Wednesday for cholecystectomy. Otherwise he is clinically stable. 2. We'll follow and make nothing by mouth after midnight for tomorrow night. 3. Patient scheduled to undergo cholecystectomy by Dr. Pulido Objective - Vital Signs Vital signs: Vital Signs Temp 97.5 F L 11/20/17 12:32 Pulse 62 11/20/17 12:32 Resp 16 11/20/17 12:32 BP 127/74 11/20/17 12:32 Pulse Ox 96 11/20/17 12:32 Intake & Output 11/19/17 11/20/17 11/20/17 18:59 06:59 18:59 Intake Total 1180 175 Output Total 125 600 Balance 1055 -425 Weight 102.739 kg Intake: Intake, IV Titration 220 175 Amount Ampicillin-Sulbactam 3 gm 100 In Sodium Chloride 0.9% 100 ml @ 200 mls/hr IVPB Q6HR [facility] Rx#:[id number] Lactated Ringers 1,000 ml 120 @ 20 mls/hr IV .Q24H [facility] Rx#:[id number] Sodium Chloride 0.9% 1, 175 000 ml @ 50 mls/hr IV . Q20H [facility] Rx#:[id number] Oral 960 Output: Urine 125 600 Other: Voiding Method Urinal Urinal Urinal Diaper Diaper Diaper Incontinent Incontinent Incontinent # Voids 4 2 - Labs CBC & Chem 7: 11/20/17 07:30 11/20/17 07:30 Labs: Abnormal Lab Results - Last 24 Hours (Table) 11/20/17 11/20/17 Range/Units 07:30 07:30 RBC 3.74 L (4.30-5.90) m/uL Hgb 12.1 L (13.0-17.5) gm/dL Hct 35.5 L (39.0-53.0) % Sodium 135 L (137-145) mmol/L Glucose 103 H (74-99) mg/dL Total Protein 4.9 L (6.3-8.2) g/dL Albumin 2.4 L (3.5-5.0) g/dL Lipase 525 H (23-300) U/L Microbiology - Last 24 Hours (Table) 11/16/17 09:20 Blood Culture - Preliminary Blood No Growth after 96 hours 11/16/17 09:32 Blood Culture - Preliminary Blood No Growth after 96 hours Assessment and Plan (1) Cholecystitis Current Visit: Yes Status: Acute Code(s): K81.9 - CHOLECYSTITIS, UNSPECIFIED SNOMED Code(s): 55118541 (2) Fall Current Visit: Yes Status: Acute Code(s): W19.XXXA - UNSPECIFIED FALL, INITIAL ENCOUNTER SNOMED Code(s): 0627594 (3) Leukocytosis Current Visit: Yes Status: Acute Code(s): D72.829 - ELEVATED WHITE BLOOD CELL COUNT, UNSPECIFIED SNOMED Code(s): 933114593 (4) Pancreatitis Current Visit: Yes Status: Acute Code(s): K85.90 - ACUTE PANCREATITIS WITHOUT NECROSIS OR INFECTION, UNSP SNOMED Code(s): 85537353 (5) CHF (congestive heart failure) Current Visit: No Status: Acute Code(s): I50.9 - HEART FAILURE, UNSPECIFIED SNOMED Code(s): 03639417
--- NOTE | 2017-11-20 12:53 | P.PN ---
Subjective Progress Note Date: 11/20/17 This is an 82-year-old male one of Dr. Hassan with a previous medical history significant for CAD post the cardiac arrest with ischemic cardiomyopathy post AICD implantation, left heart catheterization with PCI back in 2013, chronic systolic heart failure with EF 35 %, peptic ulcer disease, hyperlipidemia, hypothyroidism, osteoarthritis. Patient was admitted in February 2016 for dizziness and subsequently his ICD fired first time and it did fire again the second time V. fib V. tach was detected. ICD was interrogated and adjusted from 25-35 J. Last admission in `2016 for hyponatremia. Patient comes in to the ER with significant back pain that started last night radiated to the epigastric area. Patient also endorses nausea but no episode of vomiting. He denies any previous augmentation of severe chest pain. Since the pain did not get better patient decided to come to the ER. On evaluation in the ER patient had a lipase of 10,000-34 and an amylase of 593. LFTs suggested alkaline phosphatase 140 with normal bilirubin and AST and ALT. Patient denies history of alcoholism. Ultrasound abdomen was obtained that suggested cholecystitis. Possible sludge near the neck with wall thickening and pericholecystic fluid was seen. Echocardiogram was obtained which suggested EF of 25-30% with severe global hypokinesia.Vitals obtained this morning suggests tachycardia, blood pressure 205/137, saturating well on room air. Patient on evaluation is nauseous and having multiple bouts of vomiting uncontrolled on Zofran and Reglan. Oral medication could not be an administrated as patient was nauseous. Other pertinent labs include a lactic acid 2.3 which improved to 1. 5 in the afternoon. Troponin 1 is negative. Triglyceride 181 in August 2017. Patient's presentation is concerning for cholecystitis and pancreatitis. CT of the tendon last night suggest distended gallbladder with acute cholecystitis with stranding that about the head and uncinate process of the pancreas concerning for acute pancreatitis. Gastroenterology and surgery on consult. Patient may require cardiac clearance prior to going for surgery. Keep Plavix on hold. Cardiology evaluation pending keep patient nothing by mouth. Normal saline running at 75 mL in due to decreased ejection fraction and concern for volume overload 11/17: Patient denies having any nausea today. He denies any chest pain or shortness of breath. He does have incentive spirometry. Patient was scheduled for gallbladder surgery with Dr. Pulido this week as he needed to be off Plavix which has been postponed until Wednesday. White count has jumped up to 16.1 , creatinine is 1.12, lites within normal limits. Amylase is down to 447 and lipase is significantly improved at 2076. AST and ALT slightly elevated. Patient encouraged to increase activity. 11/18: Today, patient is complaining of neck pain which he has had for about 4 months. We are starting baclofen and tramadol. Abdominal pain is a lot better. He denies any shortness of breath at this time but he did have an episode where his pulse ox dropped down to 85% off oxygen. He is currently pulse ox a 91-92% on 2 L nasal cannula. Chest x-ray ordered. Besides the neck pain, patient is also complaining of lower back pain most likely from bed. White count remains elevated at 17.2. Liver function tests are normalized. Lipase is down to 1052. 11/19: Patient's family is at bedside and concerned that he has some slurred speech. No slurred speech noted. Generalized weakness. Thinks he pulled a muscle when he was getting up to the chair. Baclofen was started yesterday which will be discontinued. He states that he is feeling tired. Chest x-ray shows pulmonary edema and pleural fluid consistent with congestive heart failure is much worse than last exam. IV fluids will be completely discontinued and IV Lasix started. The troponin has been ordered which is 0.076 and cardiology notified. Discussed in detail with the patient that he has high risk during surgery and may require intubation and ICU care after surgery. Patient does understand this. Surgery is currently scheduled for Wednesday with Dr. Pulido. 11/20: Patient is resting comfortably in bed without any new complaints today. Patient states that he is feeling better. Surgery is scheduled for Wednesday with Dr. Pulido. White count has improved to 10.4. Hemoglobin has been stable at 12.1. Lipase continues to decline. Repeat CBC and comp ordered. Patient continues to tolerate a full liquid diet. Patient denies any nausea or vomiting , abdominal pain, or diarrhea. Patient denies any chest discomfort or difficulty breathing. Objective - Vital Signs Vital signs: Vital Signs Temp 97.5 F L 11/20/17 12:32 Pulse 62 11/20/17 12:32 Resp 16 11/20/17 12:32 BP 127/74 11/20/17 12:32 Pulse Ox 96 11/20/17 12:32 Intake & Output 11/19/17 11/20/17 11/20/17 18:59 06:59 18:59 Intake Total 1180 175 Output Total 125 600 Balance 1055 -425 Weight 102.739 kg Intake: Intake, IV Titration 220 175 Amount Ampicillin-Sulbactam 3 gm 100 In Sodium Chloride 0.9% 100 ml @ 200 mls/hr IVPB Q6HR [facility] Rx#:[id number] Lactated Ringers 1,000 ml 120 @ 20 mls/hr IV .Q24H [facility] Rx#:[id number] Sodium Chloride 0.9% 1, 175 000 ml @ 50 mls/hr IV . Q20H [facility] Rx#:[id number] Oral 960 Output: Urine 125 600 Other: Voiding Method Urinal Urinal Urinal Diaper Diaper Diaper Incontinent Incontinent Incontinent # Voids 4 2 - Exam Gen: This is a 82-year-old male , no acute distress noted, cooperative , obese HEENT: Head is atraumatic, normocephalic. Pupils equal, round. Sclerae is anicteric, hard of hearing noted NECK: Supple. No JVD. No lymphadenopathy. No thyromegaly. LUNGS: Clear to auscultation. No wheezes or rhonchi. No intercostal retractions. HEART: Regular rate and rhythm. No murmur. ABDOMEN: Soft. Bowel sounds are present. No masses. Tenderness to right upper quadrant and epigastric region. EXTREMITIES: No pedal edema. No calf tenderness. NEUROLOGICAL: Patient is awake, alert and oriented x3. Cranial nerves 2 through 12 are grossly intact. - Labs CBC & Chem 7: 11/20/17 07:30 11/20/17 07:30 Labs: Abnormal Lab Results - Last 24 Hours (Table) 11/20/17 11/20/17 Range/Units 07:30 07:30 RBC 3.74 L (4.30-5.90) m/uL Hgb 12.1 L (13.0-17.5) gm/dL Hct 35.5 L (39.0-53.0) % Sodium 135 L (137-145) mmol/L Glucose 103 H (74-99) mg/dL Total Protein 4.9 L (6.3-8.2) g/dL Albumin 2.4 L (3.5-5.0) g/dL Lipase 525 H (23-300) U/L Microbiology - Last 24 Hours (Table) 11/16/17 09:20 Blood Culture - Preliminary Blood No Growth after 96 hours 11/16/17 09:32 Blood Culture - Preliminary Blood No Growth after 96 hours Assessment and Plan Plan: 1. Severe abdominal pain initiating in back radiating to the right upper quadrant and epigastric region secondary to cholecystitis and pancreatitis. Likely acalculous cholecystitis from the CT finding ultrasound suggestive of sludge in the neck but is not clear due to bowel gas -continue clear liquid diet , fluid has to be administrated cautiously as patient has a ejection fraction 30 %. 2 cholecystitis. Patient on Unasyn. Blood cultures no growth after 96 hours. Likely secondary to gallstones though CT does not suggest any gallstones. Ultrasound concerning for sludge in the neck. Surgery consult, completed and GI consult, completed. Patient scheduled for cholecystectomy on Wednesday 3. Acute pancreatitis secondary to gallstones full liquid diet 4. Ascending colitis, continue Unasyn, WBCs improved 5. h/o V. fib/V. tach and ischemic cardiomyopathy status post AICD with acute on chronic systolic heart failure. IV Lasix started. IV fluids discontinued. - Continue amiodarone 200 mg po daily 6. CAD post [place] with cardiac arrest status post PCI back in 2013. Continue metoprolol 25 mg orally twice every day, amlodipine 12.5 mg by mouth daily, lisinopril 5 mg by mouth daily, aspirin 81 mg orally once every day, hold Plavix for possible surgery. Plavix to be held for 5 days prior to the surgery. 7. Hyperlipidemia. Continue patient on low-cholesterol diet. 8. Hypertension. Continue metoprolol 25 mg orally twice every day, Aldactone 12.5 mg by mouth daily, lisinopril 5 mg by mouth daily 9. Post partial thyroidectomy. 10. AMD. Stable at this point in time. 11. History of PUD. Continue Protonix 40 mg orally once every day. 12. Osteoarthritis. Stable. 13. Ischemic cardiomyopathy s/p AICD 14. DVT prophylaxis. Lovenox 40 mg subcutaneously every 24 hours. 15. GI prophylaxis. Protonix 40 mg orally once every day. 16. Degenerative disc disease of the cervical spine. Continue tramadol as needed. discharge plan: To be determined. PT and OT added. Impression and plan of care have been directed as dictated by the signing physician. Pretty Woodward nurse practitioner acting as scribe for signing physician.
[2017-11-20] MEDS: traMADol 50 MG TAB PO PRN (17:33)
[2017-11-20] MEDS: ATORVASTATIN 80 MG TAB PO SCH (20:24)
[2017-11-21] MEDS: traMADol 50 MG TAB PO PRN ×2 (04:36→16:29)
[2017-11-21] MEDS: AMPICILLIN-SULBACTAM 3 GM in SODIUM CHLORIDE 0.9% 100 ML IVPB SCH ×3 (05:28→19:09)
[2017-11-21 08:39] LABS: Basophils % (A) 0 %; Eosinophils # (A) 0.2 k/uL (0-0.7); Eosinophils % (A) 1 %; HCT 38.6 % (39.0-53.0); HGB 12.6 gm/dL (13.0-17.5); Lymphocytes # (A) 0.9 k/uL (1.0-4.8); Lymphocytes % (A) 7 %; MCH 31.7 pg (25.0-35.0); MCHC 32.6 g/dL (31.0-37.0); MCV 97.3 fL (80.0-100.0); Mean Platelet Volume 7.8; Monocytes # (A) 0.7 k/uL (0-1.0); Monocytes % (A) 5 %; Neutrophils # (A) 10.7 k/uL (1.3-7.7); Neutrophils % (A) 85 %; Platelet Count 220 k/uL (150-450); RBC 3.97 m/uL (4.30-5.90); RDW 12.7 % (11.5-15.5); WBC 12.6 k/uL (3.8-10.6)
[2017-11-21] MEDS: FUROSEMIDE 10 MG/ML 2 ML VIAL IV SCH ×2 (08:41→22:13)
[2017-11-21] MEDS: AMIODARONE 200 MG TAB PO SCH (08:41)
[2017-11-21] MEDS: LISINOPRIL 10 MG TAB PO SCH ×2 (08:41→22:13)
[2017-11-21] MEDS: METOPROLOL TARTRATE 25 MG TAB PO SCH (08:41)
[2017-11-21] MEDS: SPIRONOLACTONE 25 MG TAB PO SCH (08:41)
[2017-11-21] MEDS: ASPIRIN 81 MG PO SCH (08:41)
[2017-11-21] MEDS: PANTOPRAZOLE 40 MG/10 ML VIAL IVP SCH (08:41)
[2017-11-21] MEDS: FLUTICASONE 50MCG/SPRAY NASAL 16GM EA NOSTRIL SCH (08:42)
[2017-11-21] MEDS: ONDANSETRON 4 MG/2 ML VIAL IVP PRN ×2 (08:54→16:47)
[2017-11-21 08:55] LABS: ALT 41 U/L (21-72); AST 27 U/L (17-59); Albumin 2.6 g/dL (3.5-5.0); Alkaline Phosphatase 92 U/L (38-126); Anion Gap 7 mmol/L; Blood Urea Nitrogen 18 mg/dL (9-20); Calcium 8.5 mg/dL (8.4-10.2); Carbon Dioxide 28 mmol/L (22-30); Chloride 101 mmol/L (98-107); Glucose 89 mg/dL (74-99); Lipase 837 U/L (23-300); Potassium 3.5 mmol/L (3.5-5.1); Sodium 136 mmol/L (137-145); Total Bilirubin 0.8 mg/dL (0.2-1.3); Total Protein 5.1 g/dL (6.3-8.2)
--- NOTE | 2017-11-21 09:40 | PN ---
PROGRESS NOTE DATE OF SERVICE: 11/21/2017. HISTORY: The patient is an 82-year-old pleasant white male admitted to hospital with acute pancreatitis is severe epigastric and right upper quadrant abdominal pain. He is feeling better. He still has some discomfort in the epigastric area. He is tolerating clear liquids, but he does not have a good appetite. He complains of constipation. No fevers, chills, night sweats. PHYSICAL EXAMINATION: Appears comfortable no apparent distress. VITAL SIGNS: Stable. Blood pressure is 171/81, pulse rate is 72, temperature 98. HEENT: Examination unremarkable. Conjunctivae pink. Sclerae anicteric. Oral cavity no lesions. NECK: No lymph node enlargement. CHEST: Clear to auscultation. HEART: Regular rate and rhythm. ABDOMEN: Slightly distended. There was mild tenderness in the epigastric and right upper quadrant area. The abdomen was benign. Bowel sounds are positive. EXTREMITIES: No pedal edema. SKIN: No rashes. NEUROLOGIC: Alert and oriented x3. No focal deficits. LABS: WBC 12.6, hemoglobin 12.6, platelets are normal. Lipase is up to 837. ALT, AST, T- bili and alkaline phosphatase are normal. IMPRESSION: 1. Acute pancreatitis, 1st episode, gradually improving. Today there is slight increase in lipase but clinically patient remains the same. Still has some epigastric discomfort and right upper quadrant abdominal pain. 2. Gallbladder sludge. He is scheduled for gallbladder surgery tomorrow by Dr. Pulido. RECOMMENDATIONS: 1. Continue with clear liquid diet. 2. Antiemetics as needed. 3. Continue with Protonix 40 mg daily. Thank you for this consultation. MMODL / IJN: [id number] /
--- NOTE | 2017-11-21 13:01 | P.PN ---
Subjective Progress Note Date: 11/21/17 This is an 82-year-old male one of Dr. Hassan with a previous medical history significant for CAD post the cardiac arrest with ischemic cardiomyopathy post AICD implantation, left heart catheterization with PCI back in 2013, chronic systolic heart failure with EF 35 %, peptic ulcer disease, hyperlipidemia, hypothyroidism, osteoarthritis. Patient was admitted in February 2016 for dizziness and subsequently his ICD fired first time and it did fire again the second time V. fib V. tach was detected. ICD was interrogated and adjusted from 25-35 J. Last admission in `2016 for hyponatremia. Patient comes in to the ER with significant back pain that started last night radiated to the epigastric area. Patient also endorses nausea but no episode of vomiting. He denies any previous augmentation of severe chest pain. Since the pain did not get better patient decided to come to the ER. On evaluation in the ER patient had a lipase of 10,000-34 and an amylase of 593. LFTs suggested alkaline phosphatase 140 with normal bilirubin and AST and ALT. Patient denies history of alcoholism. Ultrasound abdomen was obtained that suggested cholecystitis. Possible sludge near the neck with wall thickening and pericholecystic fluid was seen. Echocardiogram was obtained which suggested EF of 25-30% with severe global hypokinesia.Vitals obtained this morning suggests tachycardia, blood pressure 205/137, saturating well on room air. Patient on evaluation is nauseous and having multiple bouts of vomiting uncontrolled on Zofran and Reglan. Oral medication could not be an administrated as patient was nauseous. Other pertinent labs include a lactic acid 2.3 which improved to 1. 5 in the afternoon. Troponin 1 is negative. Triglyceride 181 in August 2017. Patient's presentation is concerning for cholecystitis and pancreatitis. CT of the tendon last night suggest distended gallbladder with acute cholecystitis with stranding that about the head and uncinate process of the pancreas concerning for acute pancreatitis. Gastroenterology and surgery on consult. Patient may require cardiac clearance prior to going for surgery. Keep Plavix on hold. Cardiology evaluation pending keep patient nothing by mouth. Normal saline running at 75 mL in due to decreased ejection fraction and concern for volume overload 11/17: Patient denies having any nausea today. He denies any chest pain or shortness of breath. He does have incentive spirometry. Patient was scheduled for gallbladder surgery with Dr. Pulido this week as he needed to be off Plavix which has been postponed until Wednesday. White count has jumped up to 16.1 , creatinine is 1.12, lites within normal limits. Amylase is down to 447 and lipase is significantly improved at 2076. AST and ALT slightly elevated. Patient encouraged to increase activity. 11/18: Today, patient is complaining of neck pain which he has had for about 4 months. We are starting baclofen and tramadol. Abdominal pain is a lot better. He denies any shortness of breath at this time but he did have an episode where his pulse ox dropped down to 85% off oxygen. He is currently pulse ox a 91-92% on 2 L nasal cannula. Chest x-ray ordered. Besides the neck pain, patient is also complaining of lower back pain most likely from bed. White count remains elevated at 17.2. Liver function tests are normalized. Lipase is down to 1052. 11/19: Patient's family is at bedside and concerned that he has some slurred speech. No slurred speech noted. Generalized weakness. Thinks he pulled a muscle when he was getting up to the chair. Baclofen was started yesterday which will be discontinued. He states that he is feeling tired. Chest x-ray shows pulmonary edema and pleural fluid consistent with congestive heart failure is much worse than last exam. IV fluids will be completely discontinued and IV Lasix started. The troponin has been ordered which is 0.076 and cardiology notified. Discussed in detail with the patient that he has high risk during surgery and may require intubation and ICU care after surgery. Patient does understand this. Surgery is currently scheduled for Wednesday with Dr. Pulido. 11/20: Patient is resting comfortably in bed without any new complaints today. Patient states that he is feeling better. Surgery is scheduled for Wednesday with Dr. Pulido. White count has improved to 10.4. Hemoglobin has been stable at 12.1. Lipase continues to decline. Repeat CBC and comp ordered. Patient continues to tolerate a full liquid diet. Patient denies any nausea or vomiting , abdominal pain, or diarrhea. Patient denies any chest discomfort or difficulty breathing. 11/21: Patient complains of abdominal discomfort. Denies any nausea or vomiting or diarrhea at this time. Patient complains of not having a bowel movement since being in the hospital, however, he is not had a large amount of food intake. Patient is requesting to get up to shower, encouraged patient to shower prior to surgery that is scheduled for Wednesday with Dr. Pulido. WBC 12.6 hemoglobin 12.6, lipase was elevated this morning at 837. Objective - Vital Signs Vital signs: Vital Signs Temp 97.9 F 11/21/17 12:20 Pulse 61 11/21/17 12:20 Resp 16 11/21/17 12:20 BP 177/79 11/21/17 12:20 Pulse Ox 93 L 11/21/17 12:20 Intake & Output 11/20/17 11/21/17 11/21/17 18:59 06:59 18:59 Intake Total 100 Balance 100 Weight 98.68 kg Intake: Intake, IV Titration 100 Amount Ampicillin-Sulbactam 3 gm 100 In Sodium Chloride 0.9% 100 ml @ 200 mls/hr IVPB Q6HR [facility] Rx#:[id number] Other: Voiding Method Urinal Urinal Urinal Diaper Diaper Diaper Incontinent Incontinent Incontinent # Voids 2 1 - Exam Gen: This is a 82-year-old male , no acute distress noted, cooperative , obese HEENT: Head is atraumatic, normocephalic. Pupils equal, round. Sclerae is anicteric, hard of hearing noted NECK: Supple. No JVD. No lymphadenopathy. No thyromegaly. LUNGS: Clear to auscultation. No wheezes or rhonchi. No intercostal retractions. HEART: Regular rate and rhythm. No murmur. ABDOMEN: Soft. Bowel sounds are present. No masses. Tenderness to right upper quadrant and epigastric region. EXTREMITIES: No pedal edema. No calf tenderness. NEUROLOGICAL: Patient is awake, alert and oriented x3. Cranial nerves 2 through 12 are grossly intact. - Labs CBC & Chem 7: 11/21/17 07:52 11/21/17 07:52 Labs: Abnormal Lab Results - Last 24 Hours (Table) 11/21/17 11/21/17 Range/Units 07:52 07:52 WBC 12.6 H (3.8-10.6) k/uL RBC 3.97 L (4.30-5.90) m/uL Hgb 12.6 L (13.0-17.5) gm/dL Hct 38.6 L (39.0-53.0) % Neutrophils # 10.7 H (1.3-7.7) k/uL Lymphocytes # 0.9 L (1.0-4.8) k/uL Sodium 136 L (137-145) mmol/L Total Protein 5.1 L (6.3-8.2) g/dL Albumin 2.6 L (3.5-5.0) g/dL Lipase 837 H (23-300) U/L Microbiology - Last 24 Hours (Table) 11/16/17 09:20 Blood Culture - Preliminary Blood No Growth after 120 hours 11/16/17 09:32 Blood Culture - Preliminary Blood No Growth after 120 hours Assessment and Plan Plan: 1. Severe abdominal pain initiating in back radiating to the right upper quadrant and epigastric region secondary to cholecystitis and pancreatitis. Likely acalculous cholecystitis from the CT finding ultrasound suggestive of sludge in the neck but is not clear due to bowel gas -continue clear liquid diet , fluid has to be administrated cautiously as patient has a ejection fraction 30 %. Patient will be nothing by mouth after midnight for surgery Wednesday. 2 cholecystitis. Patient on Unasyn. Blood cultures no growth after 96 hours. Likely secondary to gallstones though CT does not suggest any gallstones. Ultrasound concerning for sludge in the neck. Surgery consult, completed and GI consult, completed. Patient scheduled for cholecystectomy on Wednesday 3. Acute pancreatitis secondary to gallstones full liquid diet 4. Ascending cholangitis, continue Unasyn, WBCs improved 5. h/o V. fib/V. tach and ischemic cardiomyopathy status post AICD with acute on chronic systolic heart failure. IV Lasix started. IV fluids discontinued. - Continue amiodarone 200 mg po daily 6. CAD post [place] with cardiac arrest status post PCI back in 2013. Continue metoprolol 25 mg orally twice every day, amlodipine 12.5 mg by mouth daily, lisinopril 5 mg by mouth daily, aspirin 81 mg orally once every day, hold Plavix for possible surgery. Plavix to be held for 5 days prior to the surgery. 7. Hyperlipidemia. Continue patient on low-cholesterol diet. 8. Hypertension. Continue metoprolol 25 mg orally twice every day, Aldactone 12.5 mg by mouth daily, lisinopril 5 mg by mouth daily 9. Post partial thyroidectomy. 10. AMD. Stable at this point in time. 11. History of PUD. Continue Protonix 40 mg orally once every day. 12. Osteoarthritis. Stable. 13. Ischemic cardiomyopathy s/p AICD 14. DVT prophylaxis. Lovenox 40 mg subcutaneously every 24 hours. 15. GI prophylaxis. Protonix 40 mg orally once every day. 16. Degenerative disc disease of the cervical spine. Continue tramadol as needed. discharge plan: To be determined. PT and OT added. Impression and plan of care have been directed as dictated by the signing physician. Pretty Woodward nurse practitioner acting as scribe for signing physician.
--- NOTE | 2017-11-21 13:21 | P.PN ---
Subjective Progress Note Date: 11/21/17 CHIEF COMPLAINT: Cholecystitis HISTORY OF PRESENT ILLNESS: The patient is a very pleasant 82-year-old male who presents with history of cholecystitis. This morning, he had been nothing by mouth. He has some hunger. His son is at bedside. He scheduled for surgery tomorrow. No significant abdominal pain at this time. PHYSICAL EXAM: VITAL SIGNS: Currently stable. GENERAL: Well-developed in no acute distress. HEENT: No sclera icterus. Extraocular movements grossly intact. Moist buccal mucosa. Ecchymosis along the orbital eye and forehead from recent trauma NECK: Supple without lymphadenopathy. CHEST: Non-labored respirations and equal bilateral excursions. CARDIOVASCULAR: Regular rate with regular rhythm. ABDOMEN: Protuberant, soft, no peritonitis. Non-distended. Minimal tenderness right upper quadrant. MUSCULOSKELETAL: No clubbing, cyanosis or edema. NEUROLOGIC: No focal or lateralizing signs. Cranial nerves II through XII grossly intact. PSYCH: Alert and oriented to person, place and time. SKIN: Well perfused. Good skin turgor. LABS: Reviewed ASSESSMENT: 1. Cholecystitis PLAN: 1. Nothing by mouth after midnight for cholecystectomy tomorrow Objective - Vital Signs Vital signs: Vital Signs Temp 97.9 F 11/21/17 12:20 Pulse 61 11/21/17 12:20 Resp 16 11/21/17 12:20 BP 177/79 11/21/17 12:20 Pulse Ox 93 L 11/21/17 12:20 Intake & Output 11/20/17 11/21/17 11/21/17 18:59 06:59 18:59 Intake Total 100 Balance 100 Weight 98.68 kg Intake: Intake, IV Titration 100 Amount Ampicillin-Sulbactam 3 gm 100 In Sodium Chloride 0.9% 100 ml @ 200 mls/hr IVPB Q6HR [facility] Rx#:[id number] Other: Voiding Method Urinal Urinal Urinal Diaper Diaper Diaper Incontinent Incontinent Incontinent # Voids 2 1 - Labs CBC & Chem 7: 11/21/17 07:52 11/21/17 07:52 Labs: Abnormal Lab Results - Last 24 Hours (Table) 11/21/17 11/21/17 Range/Units 07:52 07:52 WBC 12.6 H (3.8-10.6) k/uL RBC 3.97 L (4.30-5.90) m/uL Hgb 12.6 L (13.0-17.5) gm/dL Hct 38.6 L (39.0-53.0) % Neutrophils # 10.7 H (1.3-7.7) k/uL Lymphocytes # 0.9 L (1.0-4.8) k/uL Sodium 136 L (137-145) mmol/L Total Protein 5.1 L (6.3-8.2) g/dL Albumin 2.6 L (3.5-5.0) g/dL Lipase 837 H (23-300) U/L Microbiology - Last 24 Hours (Table) 11/16/17 09:20 Blood Culture - Preliminary Blood No Growth after 120 hours 11/16/17 09:32 Blood Culture - Preliminary Blood No Growth after 120 hours Assessment and Plan (1) Cholecystitis Current Visit: Yes Status: Acute Code(s): K81.9 - CHOLECYSTITIS, UNSPECIFIED SNOMED Code(s): 97296809 (2) Fall Current Visit: Yes Status: Acute Code(s): W19.XXXA - UNSPECIFIED FALL, INITIAL ENCOUNTER SNOMED Code(s): 3006337 (3) Leukocytosis Current Visit: Yes Status: Acute Code(s): D72.829 - ELEVATED WHITE BLOOD CELL COUNT, UNSPECIFIED SNOMED Code(s): 389841299 (4) Pancreatitis Current Visit: Yes Status: Acute Code(s): K85.90 - ACUTE PANCREATITIS WITHOUT NECROSIS OR INFECTION, UNSP SNOMED Code(s): 87672357 (5) CHF (congestive heart failure) Current Visit: No Status: Acute Code(s): I50.9 - HEART FAILURE, UNSPECIFIED SNOMED Code(s): 38491936
--- NOTE | 2017-11-21 13:55 | PN ---
PROGRESS NOTE Didier is an 82-year-old gentleman who is to undergo cholecystectomy tomorrow. He has known coronary artery disease, status post stenting, has ischemic cardiomyopathy, systolic heart failure, dyslipidemia, and mild elevation in troponin. The patient has been doing well and from cardiac standpoint and is free of symptoms. On exam, blood pressure is elevated at 177/79, respiratory rate is 18. Chest exam reveals good air entry bilaterally. Heart exam reveals first and second heart sounds. No gallop. Exam of extremities did not reveal any edema. The patient is currently on amiodarone 200 daily, aspirin, Lipitor, Lasix 20 mg IV q.12, Zestril 10 mg b.i.d., metoprolol 25 b.i.d. ASSESSMENT: 1. Preop cardiac evaluation. 2. Mild troponin elevation. 3. Ischemic cardiomyopathy. 4. Uncontrolled hypertension. PLAN: I will increase the dose of Lopressor to 50 b.i.d. to more optimally control the blood pressure. MMODL / IJN: [id number] /
--- NOTE | 2017-11-21 14:07 | PN ---
PROGRESS NOTE DATE OF SERVICE: 11/20/2017. This is an 82-year-old gentleman with history of coronary artery disease, status post angioplasty, history of permanent pacemaker, ischemic cardiomyopathy with congestive heart failure, who was admitted to the hospital with pancreatitis and is to undergo cholecystectomy on Wednesday. The patient had mild troponin elevation of unclear clinical significance. He has known ischemic cardiomyopathy with severe LV dysfunction. At the time of my evaluation, patient was chest pain free, hemodynamically stable and not in heart failure. PHYSICAL EXAM: Showed that the vital signs are stable. Chest exam reveals diminished air entry at the bases. Heart exam reveals first and second heart sounds. No gallop. Exam of extremities did not reveal any edema. Peripheral pulses are felt. ASSESSMENT: 1. Pancreatitis for cholecystectomy on Wednesday. 2. Ischemic cardiomyopathy status post AICD. 3. Coronary artery disease, status post angioplasty. 4. Mild troponin elevation. PLAN: Patient is doing well clinically. Continue the beta blockers, BÁRBARA inhibitors, statins and the amiodarone that he is currently on. MMODL / IJN: [id number] /
[2017-11-21] MEDS: LACTATED RINGERS 1,000 ML IV SCH (16:48)
[2017-11-21] MEDS: ATORVASTATIN 80 MG TAB PO SCH (22:13)
[2017-11-21] MEDS: METOPROLOL TARTRATE 50 MG TAB PO SCH (22:16)
[2017-11-22] MEDS: AMPICILLIN-SULBACTAM 3 GM in SODIUM CHLORIDE 0.9% 100 ML IVPB SCH ×5 (01:09→23:29)
[2017-11-22] MEDS: ONDANSETRON 4 MG/2 ML VIAL IVP PRN (05:34)
[2017-11-22] MEDS: FLUTICASONE 50MCG/SPRAY NASAL 16GM EA NOSTRIL SCH (08:34)
[2017-11-22] MEDS: PANTOPRAZOLE 40 MG/10 ML VIAL IVP SCH (09:07)
[2017-11-22] MEDS: FUROSEMIDE 10 MG/ML 2 ML VIAL IV SCH ×2 (09:07→20:47)
[2017-11-22] MEDS: METOPROLOL TARTRATE 50 MG TAB PO SCH ×2 (09:10→20:47)
[2017-11-22 10:23] LABS: HCT 36.5 % (39.0-53.0); HGB 12.5 gm/dL (13.0-17.5); MCH 32.3 pg (25.0-35.0); MCHC 34.3 g/dL (31.0-37.0); MCV 94.2 fL (80.0-100.0); Mean Platelet Volume 7.3; Platelet Count 195 k/uL (150-450); RBC 3.87 m/uL (4.30-5.90); RDW 12.6 % (11.5-15.5); WBC 13.4 k/uL (3.8-10.6)
[2017-11-22] MEDS: LISINOPRIL 10 MG TAB PO SCH ×2 (10:43→20:47)
[2017-11-22] MEDS: ASPIRIN 81 MG PO SCH (10:43)
[2017-11-22] MEDS: AMIODARONE 200 MG TAB PO SCH (10:43)
[2017-11-22] MEDS: SPIRONOLACTONE 25 MG TAB PO SCH (10:43)
[2017-11-22 10:54] LABS: ALT 34 U/L (21-72); AST 19 U/L (17-59); Albumin 2.4 g/dL (3.5-5.0); Alkaline Phosphatase 80 U/L (38-126); Anion Gap 5 mmol/L; Blood Urea Nitrogen 14 mg/dL (9-20); Calcium 8.5 mg/dL (8.4-10.2); Carbon Dioxide 29 mmol/L (22-30); Chloride 100 mmol/L (98-107); Glucose 65 mg/dL (74-99); Lipase 718 U/L (23-300); Potassium 3.8 mmol/L (3.5-5.1); Sodium 134 mmol/L (137-145); Total Protein 4.8 g/dL (6.3-8.2)
[2017-11-22] MEDS ORDERED: IV FLUID CONTINUATION 1,000 ML IV ONE (10:58)
[2017-11-22] MEDS ORDERED: fentaNYL (PF) 50 MCG/ML 2 ML AMP ONE (11:35)
[2017-11-22] MEDS ORDERED: NEOSTIGMINE 1 MG/ML 10 ML VIAL ONE (11:35)
[2017-11-22] MEDS ORDERED: VECURONIUM 10 MG VIAL IV ONE (11:35)
[2017-11-22] MEDS ORDERED: GLYCOPYRROLATE 0.2 MG/ML 2 ML VIAL ONE (11:35)
[2017-11-22] MEDS ORDERED: SUCCINYLCHOLINE CHLORIDE 100 MG/5 ML SYR IV ONE (11:35)
[2017-11-22] MEDS ORDERED: ETOMIDATE 2 MG/ML 10 ML VIAL ONE (11:35)
[2017-11-22] MEDS ORDERED: BUPIVACAIN-EPI 0.25%-1:200,000 30 ML VIAL SQ ONE (11:58)
[2017-11-22] MEDS: HYDROmorphone 0.5 MG/0.5 ML SYRINGE IVP ONE ×2 (13:33→13:58)
[2017-11-22] MEDS: traMADol 50 MG TAB PO PRN (15:18)
--- NOTE | 2017-11-22 15:44 | P.PN ---
<Robyn Lopez A - Last Filed: 11/22/17 15:42> Subjective Progress Note Date: 11/22/17 This is an 82-year-old male one of Dr. Hassan with a previous medical history significant for CAD post the cardiac arrest with ischemic cardiomyopathy post AICD implantation, left heart catheterization with PCI back in 2013, chronic systolic heart failure with EF 35 %, peptic ulcer disease, hyperlipidemia, hypothyroidism, osteoarthritis. Patient was admitted in February 2016 for dizziness and subsequently his ICD fired first time and it did fire again the second time V. fib V. tach was detected. ICD was interrogated and adjusted from 25-35 J. Last admission in `2016 for hyponatremia. Patient comes in to the ER with significant back pain that started last night radiated to the epigastric area. Patient also endorses nausea but no episode of vomiting. He denies any previous augmentation of severe chest pain. Since the pain did not get better patient decided to come to the ER. On evaluation in the ER patient had a lipase of 10,000-34 and an amylase of 593. LFTs suggested alkaline phosphatase 140 with normal bilirubin and AST and ALT. Patient denies history of alcoholism. Ultrasound abdomen was obtained that suggested cholecystitis. Possible sludge near the neck with wall thickening and pericholecystic fluid was seen. Echocardiogram was obtained which suggested EF of 25-30% with severe global hypokinesia.Vitals obtained this morning suggests tachycardia, blood pressure 205/137, saturating well on room air. Patient on evaluation is nauseous and having multiple bouts of vomiting uncontrolled on Zofran and Reglan. Oral medication could not be an administrated as patient was nauseous. Other pertinent labs include a lactic acid 2.3 which improved to 1. 5 in the afternoon. Troponin 1 is negative. Triglyceride 181 in August 2017. Patient's presentation is concerning for cholecystitis and pancreatitis. CT of the tendon last night suggest distended gallbladder with acute cholecystitis with stranding that about the head and uncinate process of the pancreas concerning for acute pancreatitis. Gastroenterology and surgery on consult. Patient may require cardiac clearance prior to going for surgery. Keep Plavix on hold. Cardiology evaluation pending keep patient nothing by mouth. Normal saline running at 75 mL in due to decreased ejection fraction and concern for volume overload 11/17: Patient denies having any nausea today. He denies any chest pain or shortness of breath. He does have incentive spirometry. Patient was scheduled for gallbladder surgery with Dr. Pulido this week as he needed to be off Plavix which has been postponed until Wednesday. White count has jumped up to 16.1 , creatinine is 1.12, lites within normal limits. Amylase is down to 447 and lipase is significantly improved at 2076. AST and ALT slightly elevated. Patient encouraged to increase activity. 11/18: Today, patient is complaining of neck pain which he has had for about 4 months. We are starting baclofen and tramadol. Abdominal pain is a lot better. He denies any shortness of breath at this time but he did have an episode where his pulse ox dropped down to 85% off oxygen. He is currently pulse ox a 91-92% on 2 L nasal cannula. Chest x-ray ordered. Besides the neck pain, patient is also complaining of lower back pain most likely from bed. White count remains elevated at 17.2. Liver function tests are normalized. Lipase is down to 1052. 11/19: Patient's family is at bedside and concerned that he has some slurred speech. No slurred speech noted. Generalized weakness. Thinks he pulled a muscle when he was getting up to the chair. Baclofen was started yesterday which will be discontinued. He states that he is feeling tired. Chest x-ray shows pulmonary edema and pleural fluid consistent with congestive heart failure is much worse than last exam. IV fluids will be completely discontinued and IV Lasix started. The troponin has been ordered which is 0.076 and cardiology notified. Discussed in detail with the patient that he has high risk during surgery and may require intubation and ICU care after surgery. Patient does understand this. Surgery is currently scheduled for Wednesday with Dr. Pulido. 11/20: Patient is resting comfortably in bed without any new complaints today. Patient states that he is feeling better. Surgery is scheduled for Wednesday with Dr. Pulido. White count has improved to 10.4. Hemoglobin has been stable at 12.1. Lipase continues to decline. Repeat CBC and comp ordered. Patient continues to tolerate a full liquid diet. Patient denies any nausea or vomiting , abdominal pain, or diarrhea. Patient denies any chest discomfort or difficulty breathing. 11/21: Patient complains of abdominal discomfort. Denies any nausea or vomiting or diarrhea at this time. Patient complains of not having a bowel movement since being in the hospital, however, he is not had a large amount of food intake. Patient is requesting to get up to shower, encouraged patient to shower prior to surgery that is scheduled for Wednesday with Dr. Pulido. WBC 12.6 hemoglobin 12.6, lipase was elevated this morning at 837. 11/22: Patient is going for surgery. Objective - Vital Signs Vital signs: Vital Signs Temp 98.1 F 11/22/17 09:14 Pulse 78 11/22/17 09:14 Resp 20 11/22/17 09:14 BP 141/70 11/22/17 09:14 Pulse Ox 97 11/22/17 09:14 Intake & Output 11/21/17 11/22/17 11/22/17 18:59 06:59 18:59 Intake Total 580 Output Total 600 450 Balance -600 130 Weight 98.68 kg 98 kg Intake: Intake, IV Titration 340 Amount Ampicillin-Sulbactam 3 gm 100 In Sodium Chloride 0.9% 100 ml @ 200 mls/hr IVPB Q6HR [facility] Rx#:[id number] Lactated Ringers 1,000 ml 240 @ 20 mls/hr IV .Q24H [facility] Rx#:[id number] Oral 240 Output: Urine 600 450 Other: Voiding Method Urinal Urinal Diaper Diaper Incontinent Incontinent # Voids 3 2 - Exam General appearance: average body habitus, mild distress, obese - EENT Eyes: PERRLA, no photophobia, dentition normal ENT: hard of hearing Ears: bilateral: normal - Neck Neck: no lymphadenopathy, normal ROM, no rigidity, no stridor Carotids: bilateral: upstroke normal Thyroid: bilateral: normal size - Respiratory Respiratory: bilateral: CTA, negative: diminished, dullness, rales, rhonchi, wheezing - Cardiovascular Rhythm: regular Heart sounds: normal: S1, S2 Abnormal Heart Sounds: systolic murmur ankle Peripheral Edema: absent: None dorsalis pedis Peripheral Pulses: bilateral: Normal - Gastrointestinal General gastrointestinal: normal bowel sounds, soft, tenderness (Right upper quadrant and epigastric region) - Integumentary Integumentary: no cellulitis, no cyanotic, no decreased turgor, no jaundiced - Neurologic Neurologic: CNII-XII intact - Musculoskeletal Musculoskeletal: gait normal, generalized weakness - Psychiatric Psychiatric: A&O x's 3, appropriate affect - Labs CBC & Chem 7: 11/22/17 09:12 11/22/17 09:12 Labs: Microbiology - Last 24 Hours (Table) 11/16/17 09:20 Blood Culture - Preliminary Blood No Growth after 120 hours 11/16/17 09:32 Blood Culture - Preliminary Blood No Growth after 120 hours Assessment and Plan Plan: 1. Acute back pain radiating to the right upper quadrant and epigastric region secondary to cholecystitis and pancreatitis. Likely acalculous cholecystitis from the CT finding ultrasound suggestive of sludge in the neck but is not clear due to bowel gas -clear liquid diet started today, fluid has to be administrated cautiously as patient has a ejection fraction 30%. Patient received 1 L of IV fluid in the ER and IV fluids discontinued. 2 cholecystitis with ascending cholangitis. Patient on Unasyn. Blood cultures ordered. Likely secondary to gallstones though CT does not suggest any gallstones. Ultrasound concerning for sludge in the neck. Surgery consuland GI consult appreciated. Patient scheduled for cholecystectomy on Wednesday 3. Acute pancreatitis secondary to gallstones full liquid diet 4. h/o V. fib/V. tach and ischemic cardiomyopathy status post AICD with acute on chronic systolic heart failure. IV Lasix started. IV fluids discontinued. - Continue amiodarone 200 mg po daily 5. CAD post [place] with cardiac arrest status post PCI back in 2013. Continue metoprolol 25 mg orally twice every day, amlodipine 12.5 mg by mouth daily, lisinopril 5 mg by mouth daily, aspirin 81 mg orally once every day, hold Plavix for possible surgery. Plavix to be held for 5 days prior to the surgery. Dr. Snow on consult 6. Hyperlipidemia. Continue patient on low-cholesterol diet. 7. Hypertension. Continue metoprolol 25 mg orally twice every day, Imuran drawn 12.5 mg by mouth daily, lisinopril 5 mg by mouth daily 8. Post partial thyroidectomy. 9. AMD. Stable at this point in time. 10. History of PUD. Continue Protonix 40 mg orally once every day. 11. Osteoarthritis. Stable. 12. Ischemic cardiomyopathy s/p AICD 13. DVT prophylaxis. Lovenox 40 mg subcutaneously every 24 hours. 14. GI prophylaxis. Protonix 40 mg orally once every day. 15. Degenerative disc disease of the cervical spine. Baclofen continued. Continue tramadol as needed. discharge plan: To be determined. PT and OT added. Impression and plan of care have been directed as dictated by the signing physician. Robyn Lopez nurse practitioner acting as scribe for signing physician. <Lloyd Morales - Last Filed: 11/25/17 21:49> Subjective Constitutional: Reports fatigue, Denies chills, Denies fever Eyes: denies blurred vision, denies pain Ears, nose, mouth and throat: Denies headache, Denies sore throat, Denies vertigo Cardiovascular: Reports shortness of breath, Denies chest pain, Denies syncope Respiratory: denies cough, Reports dyspnea, Denies cough with sputum, Denies excessive sputum, Denies hemoptysis, Denies home oxygen, Denies wheezing Gastrointestinal: Denies abdominal pain, Denies diarrhea, Denies nausea, Denies vomiting Genitourinary: Denies dysuria, Denies hematuria Musculoskeletal: Denies myalgias endorse sneck pain Integumentary: Denies pruritus, Denies rash Neurological: Denies numbness, Denies weakness Psychiatric: Denies anxiety, Denies depression Endocrine: Denies fatigue, Denies weight change Objective - Vital Signs Vital signs: Vital Signs Temp 97.9 F 11/25/17 13:01 Pulse 63 11/25/17 13:01 Resp 16 11/25/17 13:01 BP 151/74 11/25/17 13:01 Pulse Ox 97 11/25/17 13:01 Intake & Output 11/25/17 11/25/17 11/26/17 06:59 18:59 06:59 Intake Total 410 180 Output Total 250 345 Balance 160 -165 Weight 85.5 kg 85.5 kg Intake: Intake, IV Titration 410 180 Amount Ampicillin-Sulbactam 3 gm 200 100 In Sodium Chloride 0.9% 100 ml @ 200 mls/hr IVPB Q6HR [facility] Rx#:[id number] Lactated Ringers 1,000 ml 210 80 @ 20 mls/hr IV .Q24H [facility] Rx#:[id number] Output: Drainage 45 Left Abdomen 45 Urine 250 300 Other: Voiding Method Urinal Diaper Incontinent # Voids 3 - Labs CBC & Chem 7: 11/24/17 09:08 11/24/17 09:08 Labs: Abnormal Lab Results - Last 24 Hours (Table) 11/24/17 Range/Units 09:08 Procalcitonin 1.02 H (0.02-0.09) ng/mL
[2017-11-22] MEDS ORDERED: MORPHINE SULFATE 2 MG/ML SYRINGE IVP PRN (15:56)
[2017-11-22] MEDS ORDERED: LISINOPRIL 10 MG TAB PO STA (15:58)
[2017-11-22] MEDS: HYDROmorphone 1 MG/ML 1 ML SYRINGE IVP PRN ×2 (16:30→23:29)
[2017-11-22] MEDS: LACTATED RINGERS 1,000 ML IV SCH ×2 (19:41→20:46)
[2017-11-22] MEDS: ATORVASTATIN 80 MG TAB PO SCH (20:47)
[2017-11-22] MEDS: ACETAMINOPHEN TAB 325 MG TAB PO PRN (21:08)
[2017-11-23] MEDS: HYDROmorphone 1 MG/ML 1 ML SYRINGE IVP PRN (05:31)
[2017-11-23] MEDS: AMPICILLIN-SULBACTAM 3 GM in SODIUM CHLORIDE 0.9% 100 ML IVPB SCH ×3 (05:31→17:12)
[2017-11-23] MEDS: ONDANSETRON 4 MG/2 ML VIAL IVP PRN (05:31)
[2017-11-23] MEDS: AMIODARONE 200 MG TAB PO SCH (08:25)
[2017-11-23] MEDS: FUROSEMIDE 10 MG/ML 2 ML VIAL IV SCH ×2 (08:25→15:25)
[2017-11-23] MEDS: FLUTICASONE 50MCG/SPRAY NASAL 16GM EA NOSTRIL SCH (08:25)
[2017-11-23] MEDS: ASPIRIN 81 MG PO SCH (08:25)
[2017-11-23] MEDS: METOPROLOL TARTRATE 50 MG TAB PO SCH ×2 (08:26→21:28)
[2017-11-23] MEDS: PANTOPRAZOLE 40 MG/10 ML VIAL IVP SCH (08:26)
[2017-11-23] MEDS: LISINOPRIL 10 MG TAB PO SCH ×2 (08:26→21:28)
[2017-11-23] MEDS: SPIRONOLACTONE 25 MG TAB PO SCH (08:26)
[2017-11-23 09:12] LABS: HCT 39.8 % (39.0-53.0); HGB 13.1 gm/dL (13.0-17.5); MCH 31.9 pg (25.0-35.0); MCV 96.5 fL (80.0-100.0); Mean Platelet Volume 7.7; Platelet Count 255 k/uL (150-450); RBC 4.12 m/uL (4.30-5.90); RDW 12.8 % (11.5-15.5); WBC 15.8 k/uL (3.8-10.6)
[2017-11-23 09:24] LABS: ALT 36 U/L (21-72); AST 26 U/L (17-59); Albumin 2.5 g/dL (3.5-5.0); Alkaline Phosphatase 81 U/L (38-126); Anion Gap 12 mmol/L; Blood Urea Nitrogen 23 mg/dL (9-20); Calcium 8.5 mg/dL (8.4-10.2); Carbon Dioxide 24 mmol/L (22-30); Chloride 99 mmol/L (98-107); Glucose 79 mg/dL (74-99); Lipase 165 U/L (23-300); Potassium 3.7 mmol/L (3.5-5.1); Sodium 135 mmol/L (137-145); Total Bilirubin 1.1 mg/dL (0.2-1.3)
--- NOTE | 2017-11-23 09:49 | XR ---
EXAMINATION TYPE: XR chest 1V portable DATE OF EXAM: 11/23/2017 COMPARISON: Prior chest x-ray 11/18/2017 HISTORY: Shortness of breath TECHNIQUE: Single frontal view of the chest is obtained. FINDINGS: The heart is enlarged. Intracardiac defibrillator lead is present in the right ventricle, generator in left pectoral region. There is no evident pneumothorax. Bibasilar increased densities no abdullahi. There is some improvement in the interstitium and central vascularity. Mediastinum again is wide abiodun. The aorta is dense and aneurysmal. Arthropathy noted in the shoulders. IMPRESSION: Suspect improvement in patient's volume status, correlate for congestive heart failure. There may be basilar effusions and associated edema versus atelectasis, pneumonia not excluded. Aorti c aneurysm. Follow-up recommended.
[2017-11-23] MEDS: POTASSIUM CHLORIDE ER 20 MEQ TAB.ER PO SCH (10:33)
[2017-11-23] MEDS ORDERED: SENNOSIDES-DOCUSATE SODIUM 1 EACH TAB PO STA (10:50)
--- NOTE | 2017-11-23 10:51 | P.PN ---
Subjective Mr. Carrillo is seen and examined laying in bed by myself and Dr. Vaughan. Past medical history significant for coronary artery disease s/p stenting of mid-LAD 1993 x2, mid RCA and mid PLB 2001 and mid RCA, proxRCA 2013. He also has ischemic cardiomyopathy, chronic systolic heart failure, dyslipidemia, hypertension, hypothyroid, history of v-fib and permanent single chamber ICD in place. He follows with Dr. Kearns in the office. He underwent cholecystectomy with drain placement yesterday. He complains of abdominal pain and mild nausea. Oxygen saturation have been low and he is requiring increased oxygen with simple mask and venti mask at times. He is currently on nasal cannula. He appears to not be taking very deep breaths and says this is due to the pain. Repeat chest xray ordered during rounds reveals improvement in patient's volume status with ongoing basilar effusions with associated edema, pneumonia entirely excluded. Blood pressure 119/75 heart rate 131 febrile 104F last night. Plan: Increase lasix to 20 mg TID. Add small dose of PO potassium. Follow kidney function and electrolytes daily. Encourage deep breathing and incentive spirometer use. Objective - Vital Signs Vital signs: Vital Signs Temp 98.7 F 11/23/17 05:00 Pulse 131 H 11/23/17 05:00 Resp 17 11/23/17 05:00 BP 119/75 11/23/17 05:00 Pulse Ox 91 L 11/23/17 05:00 Intake & Output 11/22/17 11/23/17 11/23/17 18:59 06:59 18:59 Intake Total 400 1140 Output Total 125 1125 Balance 275 15 Weight 98 kg 99.5 kg Intake: IV 400 Intake, IV Titration 180 Amount Ampicillin-Sulbactam 3 gm 100 In Sodium Chloride 0.9% 100 ml @ 200 mls/hr IVPB Q6HR [facility] Rx#:[id number] Lactated Ringers 1,000 ml 80 @ 20 mls/hr IV .Q24H [facility] Rx#:[id number] Oral 960 Output: Drainage 60 45 Left Abdomen 60 45 Urine 50 1080 Estimated Blood Loss 15 Other: Voiding Method Urinal Urinal Urinal Diaper Diaper Diaper Incontinent Incontinent Incontinent # Voids 1 - Exam GENERAL: In no acute distress. NECK: Supple without JVD or thyromegaly. LUNGS: Bibasila rales. Shallow respirations are equal and unlabored. No wheezes or rhonchi. HEART: Regular rate and rhythm with systolic ejection murmur at the base, no rubs or gallops. S1 and S2 heard. EXTREMITIES: Normal range of motion, no edema. No clubbing or cyanosis. Peripheral pulses intact. - Labs CBC & Chem 7: 11/23/17 08:35 11/23/17 08:35 Labs: Abnormal Lab Results - Last 24 Hours (Table) 11/22/17 11/22/17 11/23/17 Range/Units 09:12 09:12 08:35 WBC 13.4 H (3.8-10.6) k/uL RBC 3.87 L (4.30-5.90) m/uL Hgb 12.5 L (13.0-17.5) gm/dL Hct 36.5 L (39.0-53.0) % Sodium 134 L 135 L (137-145) mmol/L BUN 23 H (9-20) mg/dL Glucose 65 L (74-99) mg/dL Total Protein 4.8 L 5.0 L (6.3-8.2) g/dL Albumin 2.4 L 2.5 L (3.5-5.0) g/dL Lipase 718 H (23-300) U/L 11/23/17 Range/Units 08:35 WBC 15.8 H (3.8-10.6) k/uL RBC 4.12 L (4.30-5.90) m/uL Hgb (13.0-17.5) gm/dL Hct (39.0-53.0) % Sodium (137-145) mmol/L BUN (9-20) mg/dL Glucose (74-99) mg/dL Total Protein (6.3-8.2) g/dL Albumin (3.5-5.0) g/dL Lipase (23-300) U/L Microbiology - Last 24 Hours (Table) 11/16/17 09:20 Blood Culture - Final Blood No Growth after 144 hours 11/16/17 09:32 Blood Culture - Final Blood No Growth after 144 hours Assessment and Plan Assessment: ASSESSMENT Acute pancreatitis, resolved Acute cholecystitis, s/p cholecystectomy POD#1 Leukocytosis Febrile illness Aucte hypoxic respiratory failure. Possible pneumonia with fever noted last night and tachycardia. Actue on chronic systolic heart failure, EF 25-30%. History of coronary artery disease s/p multiple stent placements. Last 2013. Ischemic cardiomyopathy Hypertension Dyslipidemia s/p AICD placement secondary to cardiomyopathy and VT/VF PLAN Increase lasix to 20 mg TID. Add small dose of PO potassium. Follow kidney function and electrolytes daily. Obtain repeat EKG. Apply radiation monitor. Encourage deep breathing and incentive spirometer use. Nurse Practitioner note has been reviewed, I agree with a documented findings and plan of care. Patient was seen and examined.
--- NOTE | 2017-11-23 12:12 | P.OP ---
Date of Procedure: 11/22/17 Preoperative Diagnosis: Cholecystitis Pancreatitis Postoperative Diagnosis: Cholecystitis Procedure(s) Performed: Laparoscopic cholecystectomy Anesthesia: SIMON Surgeon: Edgar Pulido Estimated Blood Loss (ml): 10 Pathology: other (gallbladder) Condition: stable Disposition: PACU Description of Procedure: The patient was placed on the operating table. The patient received a general endotracheal tube anesthesia. The patients abdomen was prepped and draped in the usual sterile fashion. Through an infraumbilical stab incision, the fascia of the anterior abdominal wall was grasped with a pair of Kochers and then the Veress needle was placed in the peritoneal cavity. Position of the Veress needle was confirmed with positive drop test. The abdomen was then insufflated. After adequate insufflation, the 10 mm trocar was placed in the peritoneal cavity. Following this the laparoscope was placed in the peritoneal cavity. The patient was placed in the head-up, right side up position and then a 5 mm trocar was placed in the right lateral and right subcostal position under direct visualization. A 8 mm trocar was placed in the epigastric position. The gallbladder was grasped in the fundus and infundibulum. The gallbladder was very friable. The gallbladder appeared to be chronically inflamed. The fundus grasper actually tore portion of the gallbladder wall. The retractor was replaced on the gallbladder. Traction on the gallbladder was placed in the lateral and the cephalad positions. The triangle of Calot was visualized.. The cystic duct was bluntly dissected until the union of the cystic duct and common bile duct was seen. The cystic duct was then divided and sealed with the Harmonic scissors. A PDS Endoloop was then placed throughout the cystic duct stump. The cystic artery divided and sealed with the Harmonic scissors. The gallbladder was then removed from the liver bed using Harmonic scissors. A EDVIN drain was placed in the gallbladder fossa The gallbladder was then extracted through the epigastric port site. Operative field was checked for any bleeding spots and Harmonic scissors was used to coagulate the liver bed. The abdomen was irrigated. The trocars were removed. The skin was closed using interrupted 3-0 Vicryl suture. Dermabond dressing were applied. The patient tolerated the procedure well.
--- NOTE | 2017-11-23 12:40 | P.PN ---
Subjective Progress Note Date: 11/23/17 82-year-old male seen at the bedside family at bedside patient sitting up in a chair states did ambulate in all this morning denies chest pain dizziness lightheadedness. White count 15.8 hemoglobin 13.1 potassium 3.7 creatinine 28 afebrile Dressings to surgical site on the abdomen are dry EDVIN drain in place approximate 100ml bloody drainage noted in the bulb abdomen soft nondistended surgical tenderness appropriate Postop November 22 laparoscopic cholecystectomy for cholecystitis pancreatitis Objective - Vital Signs Vital signs: Vital Signs Temp 98.7 F 11/23/17 05:00 Pulse 131 H 11/23/17 05:00 Resp 17 11/23/17 05:00 BP 119/75 11/23/17 05:00 Pulse Ox 91 L 11/23/17 05:00 Intake & Output 11/22/17 11/23/17 11/23/17 18:59 06:59 18:59 Intake Total 400 1140 Output Total 125 1125 Balance 275 15 Weight 98 kg 99.5 kg Intake: IV 400 Intake, IV Titration 180 Amount Ampicillin-Sulbactam 3 gm 100 In Sodium Chloride 0.9% 100 ml @ 200 mls/hr IVPB Q6HR [facility] Rx#:[id number] Lactated Ringers 1,000 ml 80 @ 20 mls/hr IV .Q24H [facility] Rx#:[id number] Oral 960 Output: Drainage 60 45 Left Abdomen 60 45 Urine 50 1080 Estimated Blood Loss 15 Other: Voiding Method Urinal Urinal Urinal Diaper Diaper Diaper Incontinent Incontinent Incontinent # Voids 1 - Exam Physical exam 81-year-old male Ana sitting up in a chair appears in no acute distressgs posterior diminished at the bases otherwise adequate air movement nasal cannula 4 L sats are 91% no shortness of breath noted Heart S1-S2 audible regular denying chest pain Abdomen mild tenderness surgical dressing sites dry nondistended belching and passing gas no stool tolerating diet no nausea no vomiting EDVIN drain in place moderate amount of bloody drainage noted Extremities no edema noted - Labs CBC & Chem 7: 11/23/17 08:35 11/23/17 08:35 Labs: Abnormal Lab Results - Last 24 Hours (Table) 11/23/17 11/23/17 Range/Units 08:35 08:35 WBC 15.8 H (3.8-10.6) k/uL RBC 4.12 L (4.30-5.90) m/uL Sodium 135 L (137-145) mmol/L BUN 23 H (9-20) mg/dL Total Protein 5.0 L (6.3-8.2) g/dL Albumin 2.5 L (3.5-5.0) g/dL Microbiology - Last 24 Hours (Table) 11/16/17 09:20 Blood Culture - Final Blood No Growth after 144 hours 11/16/17 09:32 Blood Culture - Final Blood No Growth after 144 hours Assessment and Plan Assessment: Impression Present on admission right upper quadrant abdominal pain with a CT abdomen and pelvis report gallbladder distended with adjacent stranding suggesting acute cholecystitis Present on admission elevated lipase pancreatitis unclear etiology possible biliary pancreatitis Known coronary artery disease with prior coronary stenting on Plavix Cardiomyopathy with AICD Peptic ulcer disease Prior to admission fall did not lose consciousness strike left forehead and left shoulder Postop September 22 laparoscopic cholecystectomy for acute cholecystitis Plan Continue postop surgical care Repeat labs in the morning Will follow closely with you Further surgical recommendations pendi DVT and GI prophylaxis Continue recommendations by cardiology Increase activity increase use of the incentive spirometer Will need to restart Plavix when appropriate The above impression and plan of care have been discussed and directed by signing physician. Glenny Lunsford nurse practitioner acting as scribe for signing physician.
--- NOTE | 2017-11-23 13:30 | P.PN ---
Subjective Progress Note Date: 11/23/17 This is an 82-year-old male one of Dr. Hassan with a previous medical history significant for CAD post the cardiac arrest with ischemic cardiomyopathy post AICD implantation, left heart catheterization with PCI back in 2013, chronic systolic heart failure with EF 35 %, peptic ulcer disease, hyperlipidemia, hypothyroidism, osteoarthritis. Patient was admitted in February 2016 for dizziness and subsequently his ICD fired first time and it did fire again the second time V. fib V. tach was detected. ICD was interrogated and adjusted from 25-35 J. Last admission in `2016 for hyponatremia. Patient comes in to the ER with significant back pain that started last night radiated to the epigastric area. Patient also endorses nausea but no episode of vomiting. He denies any previous augmentation of severe chest pain. Since the pain did not get better patient decided to come to the ER. On evaluation in the ER patient had a lipase of 10,000-34 and an amylase of 593. LFTs suggested alkaline phosphatase 140 with normal bilirubin and AST and ALT. Patient denies history of alcoholism. Ultrasound abdomen was obtained that suggested cholecystitis. Possible sludge near the neck with wall thickening and pericholecystic fluid was seen. Echocardiogram was obtained which suggested EF of 25-30% with severe global hypokinesia.Vitals obtained this morning suggests tachycardia, blood pressure 205/137, saturating well on room air. Patient on evaluation is nauseous and having multiple bouts of vomiting uncontrolled on Zofran and Reglan. Oral medication could not be an administrated as patient was nauseous. Other pertinent labs include a lactic acid 2.3 which improved to 1. 5 in the afternoon. Troponin 1 is negative. Triglyceride 181 in August 2017. Patient's presentation is concerning for cholecystitis and pancreatitis. CT of the tendon last night suggest distended gallbladder with acute cholecystitis with stranding that about the head and uncinate process of the pancreas concerning for acute pancreatitis. Gastroenterology and surgery on consult. Patient may require cardiac clearance prior to going for surgery. Keep Plavix on hold. Cardiology evaluation pending keep patient nothing by mouth. Normal saline running at 75 mL in due to decreased ejection fraction and concern for volume overload 11/17: Patient denies having any nausea today. He denies any chest pain or shortness of breath. He does have incentive spirometry. Patient was scheduled for gallbladder surgery with Dr. Pulido this week as he needed to be off Plavix which has been postponed until Wednesday. White count has jumped up to 16.1 , creatinine is 1.12, lites within normal limits. Amylase is down to 447 and lipase is significantly improved at 2076. AST and ALT slightly elevated. Patient encouraged to increase activity. 11/18: Today, patient is complaining of neck pain which he has had for about 4 months. We are starting baclofen and tramadol. Abdominal pain is a lot better. He denies any shortness of breath at this time but he did have an episode where his pulse ox dropped down to 85% off oxygen. He is currently pulse ox a 91-92% on 2 L nasal cannula. Chest x-ray ordered. Besides the neck pain, patient is also complaining of lower back pain most likely from bed. White count remains elevated at 17.2. Liver function tests are normalized. Lipase is down to 1052. 11/19: Patient's family is at bedside and concerned that he has some slurred speech. No slurred speech noted. Generalized weakness. Thinks he pulled a muscle when he was getting up to the chair. Baclofen was started yesterday which will be discontinued. He states that he is feeling tired. Chest x-ray shows pulmonary edema and pleural fluid consistent with congestive heart failure is much worse than last exam. IV fluids will be completely discontinued and IV Lasix started. The troponin has been ordered which is 0.076 and cardiology notified. Discussed in detail with the patient that he has high risk during surgery and may require intubation and ICU care after surgery. Patient does understand this. Surgery is currently scheduled for Wednesday with Dr. Pulido. 11/20: Patient is resting comfortably in bed without any new complaints today. Patient states that he is feeling better. Surgery is scheduled for Wednesday with Dr. Pulido. White count has improved to 10.4. Hemoglobin has been stable at 12.1. Lipase continues to decline. Repeat CBC and comp ordered. Patient continues to tolerate a full liquid diet. Patient denies any nausea or vomiting , abdominal pain, or diarrhea. Patient denies any chest discomfort or difficulty breathing. 11/21: Patient complains of abdominal discomfort. Denies any nausea or vomiting or diarrhea at this time. Patient complains of not having a bowel movement since being in the hospital, however, he is not had a large amount of food intake. Patient is requesting to get up to shower, encouraged patient to shower prior to surgery that is scheduled for Wednesday with Dr. Pulido. WBC 12.6 hemoglobin 12.6, lipase was elevated this morning at 837. 11/22: Patient is going for surgery. 11/23: Patient underwent laparoscopic cholecystectomy yesterday. He has been nothing by mouth but will start clear liquids for lunch today. He is anxious to eat. Abdominal pain is controlled. Yesterday afternoon, he had a drop in his pulse ox 87% and required Ventimask. His blood pressure was elevated for which an extra dose of lisinopril was given. Dilaudid was resumed for pain control. Temperature max 101.1. White count is at 15.8. He is continued on Unasyn. Lipase has normalized and liver function tests are within normal limits. Cardiology has increased Lasix to 20 mg 3 times daily. Repeat EKG was ordered and telemetry added. Pulse ox is 91% on 4 L. Patient does not appear to be dyspneic. He states he has not had a bowel movement and concern for constipation for which Senokot ordered. He states he has been voiding without any problems. Discussed discharge plan patient is planning to return home but we will ask for PT to reevaluate today for possible subacute rehab. Plan to increase activity and possible discharge by tomorrow depending on progress. Review of systems: Constitutional: + fever, no chills, no night sweats. No weight change. EENT: No headache. No blurred vision or double vision, no loss of vision. No nasal drainage or congestion. No epistaxis. No sore throat. Lungs: No shortness of breath, cough, no sputum production. No wheezing. Cardiovascular: No chest pain, no lower extremity edema. No palpitations. No paroxysmal nocturnal dyspnea. No orthopnea. No lightheadedness or dizziness. No syncopal episodes. Abdominal: abdominal pain controlled. No nausea, vomiting. No diarrhea. + constipation. No bloody or tarry stools. No loss of appetite. Genitourinary: No dysuria, increased frequency, urgency. No urinary retention. Musculoskeletal: No myalgias. No muscle weakness, no gait dysfunction, no frequent falls. + neck pain. Integumentary: No rash or pruritus. No unusual bruising. No change in hair or nails. Psychiatric: No depression. No anxiety. No mood swings. Objective - Vital Signs Vital signs: Vital Signs Temp 98.7 F 11/23/17 05:00 Pulse 131 H 11/23/17 05:00 Resp 17 11/23/17 05:00 BP 119/75 11/23/17 05:00 Pulse Ox 91 L 11/23/17 05:00 Intake & Output 11/22/17 11/23/17 11/23/17 18:59 06:59 18:59 Intake Total 400 1140 Output Total 125 1125 Balance 275 15 Weight 98 kg 99.5 kg Intake: IV 400 Intake, IV Titration 180 Amount Ampicillin-Sulbactam 3 gm 100 In Sodium Chloride 0.9% 100 ml @ 200 mls/hr IVPB Q6HR JONO Rx#:[id number] Lactated Ringers 1,000 ml 80 @ 20 mls/hr IV .Q24H JONO Rx#:[id number] Oral 960 Output: Drainage 60 45 Left Abdomen 60 45 Urine 50 1080 Estimated Blood Loss 15 Other: Voiding Method Urinal Urinal Diaper Diaper Incontinent Incontinent # Voids 1 - Exam General appearance: average body habitus, mild distress, obese - EENT Eyes: PERRLA, no photophobia, dentition normal ENT: hard of hearing Ears: bilateral: normal - Neck Neck: no lymphadenopathy, normal ROM, no rigidity, no stridor Carotids: bilateral: upstroke normal Thyroid: bilateral: normal size - Respiratory Respiratory: bilateral: CTA, negative: diminished, dullness, rales, rhonchi, wheezing - Cardiovascular Rhythm: regular Heart sounds: normal: S1, S2 Abnormal Heart Sounds: systolic murmur ankle Peripheral Edema: absent: None dorsalis pedis Peripheral Pulses: bilateral: Normal - Gastrointestinal General gastrointestinal: normal bowel sounds, soft, mild tenderness (Right upper quadrant and epigastric region). Surgical dressing sites are dry. EDVIN drain in place with bloody drainage. - Integumentary Integumentary: no cellulitis, no cyanotic, no decreased turgor, no jaundiced - Neurologic Neurologic: CNII-XII intact - Musculoskeletal Musculoskeletal: gait normal, generalized weakness - Psychiatric Psychiatric: A&O x's 3, appropriate affect - Labs CBC & Chem 7: 11/23/17 08:35 11/23/17 08:35 Labs: Abnormal Lab Results - Last 24 Hours (Table) 11/22/17 11/22/17 Range/Units 09:12 09:12 WBC 13.4 H (3.8-10.6) k/uL RBC 3.87 L (4.30-5.90) m/uL Hgb 12.5 L (13.0-17.5) gm/dL Hct 36.5 L (39.0-53.0) % Sodium 134 L (137-145) mmol/L Glucose 65 L (74-99) mg/dL Total Protein 4.8 L (6.3-8.2) g/dL Albumin 2.4 L (3.5-5.0) g/dL Lipase 718 H (23-300) U/L Microbiology - Last 24 Hours (Table) 11/16/17 09:20 Blood Culture - Final Blood No Growth after 144 hours 11/16/17 09:32 Blood Culture - Final Blood No Growth after 144 hours Assessment and Plan Plan: 1. Acute back pain radiating to the right upper quadrant and epigastric region secondary to cholecystitis and pancreatitis. Likely acalculous cholecystitis from the CT finding ultrasound suggestive of sludge in the neck but is not clear due to bowel gas -clear liquid diet started today for lunch and to be advanced. Ahsan pain management. Incentive spirometry. 2 cholecystitis with ascending cholangitis. Patient on Unasyn. Blood cultures ordered. Likely secondary to gallstones though CT does not suggest any gallstones. Ultrasound concerning for sludge in the neck. Surgery consult and GI consult appreciated. Status post laparoscopic cholecystectomy. 3. Acute pancreatitis secondary to gallstones. 4. h/o V. fib/V. tach and ischemic cardiomyopathy status post AICD with acute on chronic systolic heart failure. Until oral Lasix increased dosing by cardiology. IV fluids discontinued. Continue amiodarone 200 mg po daily 5. CAD post NM with cardiac arrest status post PCI back in 2013. Continue metoprolol 50 mg orally twice every day, lisinopril 10 mg twice daily, aspirin 81 mg orally once every day. Plavix remains on hold. Cardiology on consult 6. Hyperlipidemia. Continue Lipitor, patient on low-cholesterol diet. 7. Hypertension. Continue metoprolol 50 mg orally twice every day, Aldactone 12.5 mg by mouth daily, lisinopril 10 mg twice daily. 8. Post partial thyroidectomy. 9. AMD. Stable at this point in time. 10. History of PUD. Continue Protonix 40 mg orally once every day. 11. Osteoarthritis. Stable. 12. Ischemic cardiomyopathy s/p AICD 13. DVT prophylaxis. Lovenox 40 mg subcutaneously every 24 hours. 14. GI prophylaxis. Protonix 40 mg orally once every day. 15. Degenerative disc disease of the cervical spine. Baclofen continued. Continue tramadol as needed. discharge plan: To be determined. PT and OT to reassess. Possible discharge tomorrow. Impression and plan of care have been directed as dictated by the signing physician. Robyn Lopez nurse practitioner acting as scribe for signing physician.
[2017-11-23] MEDS: NYSTATIN 100,000 UNIT/ML SUSP 500,000 UNIT/5 ML CUP PO SCH ×3 (15:25→21:28)
[2017-11-23] MEDS: ATORVASTATIN 80 MG TAB PO SCH (21:27)
[2017-11-23] MEDS: LACTATED RINGERS 1,000 ML IV SCH (21:28)
[2017-11-24] MEDS: FUROSEMIDE 10 MG/ML 2 ML VIAL IV SCH ×2 (00:06→07:27)
[2017-11-24] MEDS: HYDROmorphone 1 MG/ML 1 ML SYRINGE IVP PRN (00:06)
[2017-11-24] MEDS: AMPICILLIN-SULBACTAM 3 GM in SODIUM CHLORIDE 0.9% 100 ML IVPB SCH ×4 (00:06→17:14)
[2017-11-24] MEDS: FLUTICASONE 50MCG/SPRAY NASAL 16GM EA NOSTRIL SCH (07:26)
[2017-11-24] MEDS: AMIODARONE 200 MG TAB PO SCH (07:28)
[2017-11-24] MEDS: ASPIRIN 81 MG PO SCH (07:28)
[2017-11-24] MEDS: METOPROLOL TARTRATE 50 MG TAB PO SCH ×2 (07:28→21:47)
[2017-11-24] MEDS: NYSTATIN 100,000 UNIT/ML SUSP 500,000 UNIT/5 ML CUP PO SCH ×4 (07:28→21:47)
[2017-11-24] MEDS: SPIRONOLACTONE 25 MG TAB PO SCH (07:28)
[2017-11-24] MEDS: LISINOPRIL 10 MG TAB PO SCH ×2 (07:28→21:47)
[2017-11-24] MEDS: POTASSIUM CHLORIDE ER 20 MEQ TAB.ER PO SCH (07:28)
[2017-11-24] MEDS: PANTOPRAZOLE 40 MG/10 ML VIAL IVP SCH (07:28)
[2017-11-24 10:46] LABS: Basophils % (A) 0 %; Eosinophils # (A) 0.4 k/uL (0-0.7); Eosinophils % (A) 3 %; HGB 12.3 gm/dL (13.0-17.5); Lymphocytes # (A) 0.5 k/uL (1.0-4.8); Lymphocytes % (A) 4 %; MCH 31.3 pg (25.0-35.0); MCHC 32.4 g/dL (31.0-37.0); MCV 96.4 fL (80.0-100.0); Mean Platelet Volume 7.4; Monocytes # (A) 0.3 k/uL (0-1.0); Monocytes % (A) 3 %; Neutrophils # (A) 10.6 k/uL (1.3-7.7); Neutrophils % (A) 89 %; Platelet Count 279 k/uL (150-450); RBC 3.94 m/uL (4.30-5.90); RDW 12.9 % (11.5-15.5)
[2017-11-24 10:54] LABS: Anion Gap 9 mmol/L; Blood Urea Nitrogen 22 mg/dL (9-20); Calcium 8.2 mg/dL (8.4-10.2); Carbon Dioxide 30 mmol/L (22-30); Chloride 96 mmol/L (98-107); Glucose 139 mg/dL (74-99); Potassium 3.4 mmol/L (3.5-5.1); Sodium 135 mmol/L (137-145)
--- NOTE | 2017-11-24 11:32 | P.PN ---
Subjective Progress Note Date: 11/24/17 82-year-old male seen at the bedside. Patient had been up in a chair. No new events. States pain medication effective for pain control J-P drain serous drainage surgical dressing site dry white count 15 chief complaint no bowel movement in the past several days urinating no difficulty. Postop November 22 laparoscopic cholecystectomy for cholecystitis pancreatitis Objective - Vital Signs Vital signs: Vital Signs Temp 97.7 F 11/24/17 05:00 Pulse 66 11/24/17 05:00 Resp 18 11/24/17 05:00 BP 154/76 11/24/17 05:00 Pulse Ox 96 11/24/17 05:00 Intake & Output 11/23/17 11/24/17 11/24/17 18:59 06:59 18:59 Intake Total 1440 Output Total 380 30 35 Balance -380 1410 -35 Weight 85 kg Intake: Intake, IV Titration 240 Amount Lactated Ringers 1,000 ml 240 @ 20 mls/hr IV .Q24H JONO Rx#:[id number] Oral 1200 Output: Drainage 130 30 35 Left Abdomen 130 30 35 Urine 250 Other: Voiding Method Urinal Urinal Diaper Diaper Incontinent Incontinent # Voids 2 - Exam Physical exam pleasant 82-year-old gentleman sitting in bed appears in no acute distress lungs posterior diminished at the bases upper airways no wheezing sats on 4 L 95% no cough noted Heart S1-S2 audible denying chest pain Abdomen soft nondistended surgical tenderness appropriate bowel tones present states no bowel movement no nausea no vomiting EDVIN drain serous drainage noted urinating no difficulty Extremities noted - Labs CBC & Chem 7: 11/24/17 09:08 11/24/17 09:08 Labs: Abnormal Lab Results - Last 24 Hours (Table) 11/24/17 11/24/17 Range/Units 09:08 09:08 WBC 12.0 H (3.8-10.6) k/uL RBC 3.94 L (4.30-5.90) m/uL Hgb 12.3 L (13.0-17.5) gm/dL Hct 38.0 L (39.0-53.0) % Neutrophils # 10.6 H (1.3-7.7) k/uL Lymphocytes # 0.5 L (1.0-4.8) k/uL Sodium 135 L (137-145) mmol/L Potassium 3.4 L (3.5-5.1) mmol/L Chloride 96 L (98-107) mmol/L BUN 22 H (9-20) mg/dL Glucose 139 H (74-99) mg/dL Calcium 8.2 L (8.4-10.2) mg/dL Assessment and Plan Assessment: Impression Present on admission right upper quadrant abdominal pain with a CT abdomen and pelvis report gallbladder distended with adjacent stranding suggesting acute cholecystitis Present on admission elevated lipase pancreatitis unclear etiology possible biliary pancreatitis Known coronary artery disease with prior coronary stenting on Plavix Cardiomyopathy with AICD Peptic ulcer disease Prior to admission fall did not lose consciousness strike left forehead and left shoulder Postop September 22 laparoscopic cholecystectomy for acute cholecystitis Hypokalemia Plan Continue postop surgical care Will follow closely with you Further surgical recommendations DVT and GI prophylaxis Continue recommendations by cardiology Increase activity increase use of the incentive spirometer Okay 2 restart Plavix will discuss with cardiology The above impression and plan of care have been discussed and directed by signing physician. Glenny Lunsford nurse practitioner acting as scribe for signing physician.
[2017-11-24] MEDS: LIDOCAINE 5% PATCH TOPICAL SCH (12:18)
[2017-11-24] MEDS: DOCUSATE 100 MG CAP PO SCH (12:19)
--- NOTE | 2017-11-24 14:54 | P.PN ---
Subjective Progress Note Date: 11/24/17 This is an 82-year-old male one of Dr. Hassan with a previous medical history significant for CAD post the cardiac arrest with ischemic cardiomyopathy post AICD implantation, left heart catheterization with PCI back in 2013, chronic systolic heart failure with EF 35 %, peptic ulcer disease, hyperlipidemia, hypothyroidism, osteoarthritis. Patient was admitted in February 2016 for dizziness and subsequently his ICD fired first time and it did fire again the second time V. fib V. tach was detected. ICD was interrogated and adjusted from 25-35 J. Last admission in `2016 for hyponatremia. Patient comes in to the ER with significant back pain that started last night radiated to the epigastric area. Patient also endorses nausea but no episode of vomiting. He denies any previous augmentation of severe chest pain. Since the pain did not get better patient decided to come to the ER. On evaluation in the ER patient had a lipase of 10,000-34 and an amylase of 593. LFTs suggested alkaline phosphatase 140 with normal bilirubin and AST and ALT. Patient denies history of alcoholism. Ultrasound abdomen was obtained that suggested cholecystitis. Possible sludge near the neck with wall thickening and pericholecystic fluid was seen. Echocardiogram was obtained which suggested EF of 25-30% with severe global hypokinesia.Vitals obtained this morning suggests tachycardia, blood pressure 205/137, saturating well on room air. Patient on evaluation is nauseous and having multiple bouts of vomiting uncontrolled on Zofran and Reglan. Oral medication could not be an administrated as patient was nauseous. Other pertinent labs include a lactic acid 2.3 which improved to 1. 5 in the afternoon. Troponin 1 is negative. Triglyceride 181 in August 2017. Patient's presentation is concerning for cholecystitis and pancreatitis. CT of the tendon last night suggest distended gallbladder with acute cholecystitis with stranding that about the head and uncinate process of the pancreas concerning for acute pancreatitis. Gastroenterology and surgery on consult. Patient may require cardiac clearance prior to going for surgery. Keep Plavix on hold. Cardiology evaluation pending keep patient nothing by mouth. Normal saline running at 75 mL in due to decreased ejection fraction and concern for volume overload 11/17: Patient denies having any nausea today. He denies any chest pain or shortness of breath. He does have incentive spirometry. Patient was scheduled for gallbladder surgery with Dr. Pulido this week as he needed to be off Plavix which has been postponed until Wednesday. White count has jumped up to 16.1 , creatinine is 1.12, lites within normal limits. Amylase is down to 447 and lipase is significantly improved at 2076. AST and ALT slightly elevated. Patient encouraged to increase activity. 11/18: Today, patient is complaining of neck pain which he has had for about 4 months. We are starting baclofen and tramadol. Abdominal pain is a lot better. He denies any shortness of breath at this time but he did have an episode where his pulse ox dropped down to 85% off oxygen. He is currently pulse ox a 91-92% on 2 L nasal cannula. Chest x-ray ordered. Besides the neck pain, patient is also complaining of lower back pain most likely from bed. White count remains elevated at 17.2. Liver function tests are normalized. Lipase is down to 1052. 11/19: Patient's family is at bedside and concerned that he has some slurred speech. No slurred speech noted. Generalized weakness. Thinks he pulled a muscle when he was getting up to the chair. Baclofen was started yesterday which will be discontinued. He states that he is feeling tired. Chest x-ray shows pulmonary edema and pleural fluid consistent with congestive heart failure is much worse than last exam. IV fluids will be completely discontinued and IV Lasix started. The troponin has been ordered which is 0.076 and cardiology notified. Discussed in detail with the patient that he has high risk during surgery and may require intubation and ICU care after surgery. Patient does understand this. Surgery is currently scheduled for Wednesday with Dr. Pulido. 11/20: Patient is resting comfortably in bed without any new complaints today. Patient states that he is feeling better. Surgery is scheduled for Wednesday with Dr. Pulido. White count has improved to 10.4. Hemoglobin has been stable at 12.1. Lipase continues to decline. Repeat CBC and comp ordered. Patient continues to tolerate a full liquid diet. Patient denies any nausea or vomiting , abdominal pain, or diarrhea. Patient denies any chest discomfort or difficulty breathing. 11/21: Patient complains of abdominal discomfort. Denies any nausea or vomiting or diarrhea at this time. Patient complains of not having a bowel movement since being in the hospital, however, he is not had a large amount of food intake. Patient is requesting to get up to shower, encouraged patient to shower prior to surgery that is scheduled for Wednesday with Dr. Pulido. WBC 12.6 hemoglobin 12.6, lipase was elevated this morning at 837. 11/22: Patient is going for surgery. 11/23: Patient underwent laparoscopic cholecystectomy yesterday. He has been nothing by mouth but will start clear liquids for lunch today. He is anxious to eat. Abdominal pain is controlled. Yesterday afternoon, he had a drop in his pulse ox 87% and required Ventimask. His blood pressure was elevated for which an extra dose of lisinopril was given. Dilaudid was resumed for pain control. Temperature max 101.1. White count is at 15.8. He is continued on Unasyn. Lipase has normalized and liver function tests are within normal limits. Cardiology has increased Lasix to 20 mg 3 times daily. Repeat EKG was ordered and telemetry added. Pulse ox is 91% on 4 L. Patient does not appear to be dyspneic. He states he has not had a bowel movement and concern for constipation for which Senokot ordered. He states he has been voiding without any problems. Discussed discharge plan patient is planning to return home but we will ask for PT to reevaluate today for possible subacute rehab. Plan to increase activity and possible discharge by tomorrow depending on progress. 11/24: Patient was sitting up in a chair for most the morning and has just now returned to bed. He remains with EDVIN drain in place with serous drainage. White count is decreased to 12. Potassium will be replaced. Patient continues to have constipation with no results from Senokot yesterday. Colace will be scheduled regularly. Patient is currently on O2 at 4 L and Lasix increased to 40 mg twice daily. Patient states he is urinating okay. Lidocaine patch added for chronic neck pain. He has been afebrile Review of systems: Constitutional: no fever, no chills, no night sweats. No weight change. EENT: No headache. No blurred vision or double vision, no loss of vision. No nasal drainage or congestion. No epistaxis. No sore throat. Lungs: No shortness of breath, cough, no sputum production. No wheezing. Cardiovascular: No chest pain, no lower extremity edema. No palpitations. No paroxysmal nocturnal dyspnea. No orthopnea. No lightheadedness or dizziness. No syncopal episodes. Abdominal: abdominal pain controlled. No nausea, vomiting. No diarrhea. + constipation. No bloody or tarry stools. No loss of appetite. Genitourinary: No dysuria, increased frequency, urgency. No urinary retention. Musculoskeletal: No myalgias. No muscle weakness, no gait dysfunction, no frequent falls. + neck pain. Integumentary: No rash or pruritus. No unusual bruising. No change in hair or nails. Psychiatric: No depression. No anxiety. No mood swings. Objective - Vital Signs Vital signs: Vital Signs Temp 97.7 F 11/24/17 05:00 Pulse 66 11/24/17 05:00 Resp 18 11/24/17 05:00 BP 154/76 11/24/17 05:00 Pulse Ox 96 11/24/17 05:00 Intake & Output 11/23/17 11/24/17 11/24/17 18:59 06:59 18:59 Intake Total 1440 Output Total 380 30 Balance -380 1410 Weight 85 kg Intake: Intake, IV Titration 240 Amount Lactated Ringers 1,000 ml 240 @ 20 mls/hr IV .Q24H JONO Rx#:[id number] Oral 1200 Output: Drainage 130 30 Left Abdomen 130 30 Urine 250 Other: Voiding Method Urinal Urinal Diaper Diaper Incontinent Incontinent # Voids 2 - Exam General appearance: average body habitus, no distress, obese - EENT Eyes: PERRLA, no photophobia, dentition normal ENT: hard of hearing Ears: bilateral: normal - Neck Neck: no lymphadenopathy, normal ROM, no rigidity, no stridor Carotids: bilateral: upstroke normal Thyroid: bilateral: normal size - Respiratory Respiratory: bilateral: CTA, negative: diminished, dullness, rales, rhonchi, wheezing - Cardiovascular Rhythm: regular Heart sounds: normal: S1, S2 Abnormal Heart Sounds: systolic murmur ankle Peripheral Edema: absent: None dorsalis pedis Peripheral Pulses: bilateral: Normal - Gastrointestinal General gastrointestinal: normal bowel sounds, soft, no tenderness. Surgical dressing sites are dry. EDVIN drain in place with bloody drainage. - Integumentary Integumentary: no cellulitis, no cyanotic, no decreased turgor, no jaundiced - Neurologic Neurologic: CNII-XII intact - Musculoskeletal Musculoskeletal: gait normal, generalized weakness - Psychiatric Psychiatric: A&O x's 3, appropriate affect - Labs CBC & Chem 7: 11/24/17 09:08 11/24/17 09:08 Assessment and Plan Plan: 1. Acute back pain radiating to the right upper quadrant and epigastric region secondary to cholecystitis and pancreatitis. Likely acalculous cholecystitis from the CT finding ultrasound suggestive of sludge in the neck but is not clear due to bowel gas -clear liquid diet started today for lunch and to be advanced. Ahsan pain management. Incentive spirometry. 2 cholecystitis with ascending cholangitis. Patient on Unasyn. Blood cultures ordered. Likely secondary to gallstones though CT does not suggest any gallstones. Ultrasound concerning for sludge in the neck. Surgery consult and GI consult appreciated. Status post laparoscopic cholecystectomy. 3. Acute pancreatitis secondary to gallstones. 4. h/o V. fib/V. tach and ischemic cardiomyopathy status post AICD with acute on chronic systolic heart failure. Until oral Lasix increased to 40 mg IV twice daily. IV fluids discontinued. Continue amiodarone 200 mg po daily 5. CAD post DE with cardiac arrest status post PCI back in 2013. Continue metoprolol 50 mg orally twice every day, lisinopril 10 mg twice daily, aspirin 81 mg orally once every day. Plavix remains on hold. Cardiology on consult 6. Hyperlipidemia. Continue Lipitor, patient on low-cholesterol diet. 7. Hypertension. Continue metoprolol 50 mg orally twice every day, Aldactone 12.5 mg by mouth daily, lisinopril 10 mg twice daily. 8. Post partial thyroidectomy. 9. AMD. Stable at this point in time. 10. History of PUD. Continue Protonix 40 mg orally once every day. 11. Osteoarthritis. Stable. 12. Ischemic cardiomyopathy s/p AICD. 13. DVT prophylaxis. Lovenox 40 mg subcutaneously every 24 hours. 14. GI prophylaxis. Protonix 40 mg orally once every day. 15. Degenerative disc disease of the cervical spine. Baclofen continued. Continue tramadol as needed. discharge plan: return home with [facility] Impression and plan of care have been directed as dictated by the signing physician. Robyn Lopez nurse practitioner acting as scribe for signing physician.
--- NOTE | 2017-11-24 15:27 | P.PN ---
Subjective Mr. Carrillo is seen and examined laying in bed by myself and Dr. Vaughan. Past medical history significant for coronary artery disease s/p stenting of mid-LAD 1993 x2, mid RCA and mid PLB 2001 and mid RCA, proxRCA 2013. He also has ischemic cardiomyopathy, chronic systolic heart failure, dyslipidemia, hypertension, hypothyroid, history of v-fib and permanent single chamber ICD in place. He follows with Dr. Kearns in the office. He underwent cholecystectomy with drain placement Wednesday. He is seen and examined resting comfortably in bed with family at the bedside. He states his abdomen is slowly starting to feel better with less nausea. Post exercise oxygen saturation is 79% on room air. Blood pressure 158/73 heart rate 66. Laboratory data reviewed, WBC 12, hgb 12.3 , plt 279, sodium 135, potassium 3.4, creatinine 0.89. EDVIN drain with serous drainage noted. Objective - Vital Signs Vital signs: Vital Signs Temp 98.2 F 11/24/17 11:16 Pulse 66 11/24/17 11:16 Resp 16 11/24/17 11:16 BP 158/73 11/24/17 11:16 Pulse Ox 96 11/24/17 11:40 Intake & Output 11/23/17 11/24/17 11/24/17 18:59 06:59 18:59 Intake Total 1440 Output Total 380 30 35 Balance -380 1410 -35 Weight 85 kg Intake: Intake, IV Titration 240 Amount Lactated Ringers 1,000 ml 240 @ 20 mls/hr IV .Q24H JONO Rx#:[id number] Oral 1200 Output: Drainage 130 30 35 Left Abdomen 130 30 35 Urine 250 Other: Voiding Method Urinal Urinal Diaper Diaper Incontinent Incontinent # Voids 2 - Exam GENERAL: In no acute distress. NECK: Supple without JVD or thyromegaly. LUNGS: Bibasilar rales. Respirations are equal and unlabored. and much deeper than yesterday No wheezes or rhonchi. HEART: Regular rate and rhythm with systolic ejection murmur at the base, no rubs or gallops. S1 and S2 heard. EXTREMITIES: Normal range of motion, no edema. No clubbing or cyanosis. Peripheral pulses intact. - Labs CBC & Chem 7: 11/24/17 09:08 11/24/17 09:08 Labs: Abnormal Lab Results - Last 24 Hours (Table) 11/24/17 11/24/17 Range/Units 09:08 09:08 WBC 12.0 H (3.8-10.6) k/uL RBC 3.94 L (4.30-5.90) m/uL Hgb 12.3 L (13.0-17.5) gm/dL Hct 38.0 L (39.0-53.0) % Neutrophils # 10.6 H (1.3-7.7) k/uL Lymphocytes # 0.5 L (1.0-4.8) k/uL Sodium 135 L (137-145) mmol/L Potassium 3.4 L (3.5-5.1) mmol/L Chloride 96 L (98-107) mmol/L BUN 22 H (9-20) mg/dL Glucose 139 H (74-99) mg/dL Calcium 8.2 L (8.4-10.2) mg/dL Assessment and Plan Assessment: ASSESSMENT Acute pancreatitis, resolved Acute cholecystitis, s/p cholecystectomy POD#1 Leukocytosis Febrile illness Aucte hypoxic respiratory failure. Possible pneumonia with fever noted last night and tachycardia. Actue on chronic systolic heart failure, EF 25-30%. History of coronary artery disease s/p multiple stent placements. Last 2013. Ischemic cardiomyopathy Hypertension Dyslipidemia s/p AICD placement secondary to cardiomyopathy and VT/VF PLAN Lasix was increase per primary team. Obtain repeat chest xray tomorrow morning. Follow kidney function and electrolytes daily. Encourage deep breathing and incentive spirometer use. Resume plavix as soon as is appropriate per surgery team. Nurse Practitioner note has been reviewed, I agree with a documented findings and plan of care. Patient was seen and examined.
[2017-11-24] MEDS: HYDROcodone/APAP 5-325MG 1 EACH TAB PO PRN (17:12)
[2017-11-24] MEDS: ATORVASTATIN 80 MG TAB PO SCH (21:46)
[2017-11-24] MEDS: FUROSEMIDE 10 MG/ML 4 ML VIAL IV SCH (21:46)
[2017-11-25] MEDS: HYDROcodone/APAP 5-325MG 1 EACH TAB PO PRN ×2 (00:12→08:46)
[2017-11-25] MEDS: AMPICILLIN-SULBACTAM 3 GM in SODIUM CHLORIDE 0.9% 100 ML IVPB SCH ×6 (05:46→23:34)
[2017-11-25] MEDS: FLUTICASONE 50MCG/SPRAY NASAL 16GM EA NOSTRIL SCH (08:37)
[2017-11-25] MEDS: NYSTATIN 100,000 UNIT/ML SUSP 500,000 UNIT/5 ML CUP PO SCH ×4 (08:37→22:06)
[2017-11-25] MEDS: DOCUSATE 100 MG CAP PO SCH (08:38)
[2017-11-25] MEDS: PANTOPRAZOLE 40 MG TABLET PO SCH (08:38)
[2017-11-25] MEDS: LISINOPRIL 10 MG TAB PO SCH ×2 (08:38→21:32)
[2017-11-25] MEDS: SPIRONOLACTONE 25 MG TAB PO SCH (08:38)
[2017-11-25] MEDS: METOPROLOL TARTRATE 50 MG TAB PO SCH ×2 (08:38→21:32)
[2017-11-25] MEDS: ASPIRIN 81 MG PO SCH (08:38)
[2017-11-25] MEDS: FUROSEMIDE 10 MG/ML 4 ML VIAL IV SCH (08:38)
[2017-11-25] MEDS: POTASSIUM CHLORIDE ER 20 MEQ TAB.ER PO SCH (08:38)
[2017-11-25] MEDS: AMIODARONE 200 MG TAB PO SCH (08:38)
[2017-11-25] MEDS: LIDOCAINE 5% PATCH TOPICAL SCH (08:39)
[2017-11-25] MEDS: POLYETHYLENE GLYCOL 3350 17 GM POWD.PACK PO SCH (09:31)
--- NOTE | 2017-11-25 10:08 | XR ---
EXAMINATION TYPE: XR chest 2V DATE OF EXAM: 11/25/2017 COMPARISON: Prior chest x-ray 11/23/2017 HISTORY: Shortness of breath TECHNIQUE: Frontal and lateral views of the chest are obtained. FINDINGS: Patient is rotated. Heart remains enlarged. Bibasilar increased density persists. Intersti tium and central vascularity are prominent. Intracardiac defibrillator lead is stable. Generator is i n the left pectoral region. No evident pneumothorax. IMPRESSION: Correlate for pulmonary venous hypertension and interstitial edema, aeration and interst itium thought to be somewhat improved. Additional follow-up recommended. There may be basilar effusio ns, atelectasis versus edema, pneumonia not excluded.
[2017-11-25] MEDS ORDERED: MAGNESIUM HYDROXIDE 2,400 MG/10 ML CUP PO PRN (11:57)
--- NOTE | 2017-11-25 11:57 | P.PN ---
Subjective Progress Note Date: 11/25/17 82-year-old male sitting up in a chair this morning family at bedside. Is able to use the incentive spirometer Achieving 1000 - 1500 no cough noted Currently no labs nasal cannula at 4 L sats are documented 96% chief complaint this morning constipation "it's been days and had a bowel movement" Chest x-ray done today reviewing the report correlate for pulmonary venous hypertension interstitial edema somewhat improved Surgical dressing sites dry EDVIN drain in right lower quadrant approximately 50 ml involved dressing around site dry abdomen nondistended bowel tones present urinating no difficulty Postop November 22 laparoscopic cholecystectomy for cholecystitis pancreatitis Objective - Vital Signs Vital signs: Vital Signs Temp 98 F 11/25/17 05:00 Pulse 68 11/25/17 05:00 Resp 18 11/25/17 05:00 BP 159/77 11/25/17 05:00 Pulse Ox 96 11/25/17 05:00 Intake & Output 11/24/17 11/25/17 11/25/17 18:59 06:59 18:59 Intake Total 60 410 Output Total 315 250 Balance -255 160 Weight 85.5 kg 85.5 kg Intake: Intake, IV Titration 410 Amount Ampicillin-Sulbactam 3 gm 200 In Sodium Chloride 0.9% 100 ml @ 200 mls/hr IVPB Q6HR JONO Rx#:[id number] Lactated Ringers 1,000 ml 210 @ 20 mls/hr IV .Q24H JONO Rx#:[id number] Oral 60 Output: Drainage 65 Left Abdomen 65 Urine 250 250 Other: Voiding Method Urinal Urinal Diaper Diaper Incontinent Incontinent # Voids 2 - Exam Physical exam pleasant 82-year-old gentleman sitting in a chair appears in no acute distress lungs posterior diminished at the bases upper airways no wheezing sats on 4 L 95% no cough noted Heart S1-S2 audible denying chest pain Abdomen soft nondistended surgical tenderness appropriate bowel tones present states no bowel movement no nausea no vomiting EDVIN drain serous drainage noted urinating no difficulty Extremities noted - Labs CBC & Chem 7: 11/24/17 09:08 11/24/17 09:08 Assessment and Plan Assessment: Impression Present on admission right upper quadrant abdominal pain with a CT abdomen and pelvis report gallbladder distended with adjacent stranding suggesting acute cholecystitis Present on admission elevated lipase pancreatitis unclear etiology possible biliary pancreatitis Known coronary artery disease with prior coronary stenting on Plavix Cardiomyopathy with AICD Peptic ulcer disease Prior to admission fall did not lose consciousness strike left forehead and left shoulder Postop September 22 laparoscopic cholecystectomy for acute cholecystitis Hypokalemia Plan Pain control Continue postop surgical care Will follow closely with you Further surgical recommendations DVT and GI prophylaxis Continue recommendations by cardiology Increase activity increase use of the incentive spirometer Will restart Plavix The above impression and plan of care have been discussed and directed by signing physician. Glenny Lunsford nurse practitioner acting as scribe for signing physician.
--- NOTE | 2017-11-25 12:47 | P.PN ---
Subjective Progress Note Date: 11/25/17 This is an 82-year-old male one of Dr. Hassan with a previous medical history significant for CAD post the cardiac arrest with ischemic cardiomyopathy post AICD implantation, left heart catheterization with PCI back in 2013, chronic systolic heart failure with EF 35 %, peptic ulcer disease, hyperlipidemia, hypothyroidism, osteoarthritis. Patient was admitted in February 2016 for dizziness and subsequently his ICD fired first time and it did fire again the second time V. fib V. tach was detected. ICD was interrogated and adjusted from 25-35 J. Last admission in `2016 for hyponatremia. Patient comes in to the ER with significant back pain that started last night radiated to the epigastric area. Patient also endorses nausea but no episode of vomiting. He denies any previous augmentation of severe chest pain. Since the pain did not get better patient decided to come to the ER. On evaluation in the ER patient had a lipase of 10,000-34 and an amylase of 593. LFTs suggested alkaline phosphatase 140 with normal bilirubin and AST and ALT. Patient denies history of alcoholism. Ultrasound abdomen was obtained that suggested cholecystitis. Possible sludge near the neck with wall thickening and pericholecystic fluid was seen. Echocardiogram was obtained which suggested EF of 25-30% with severe global hypokinesia.Vitals obtained this morning suggests tachycardia, blood pressure 205/137, saturating well on room air. Patient on evaluation is nauseous and having multiple bouts of vomiting uncontrolled on Zofran and Reglan. Oral medication could not be an administrated as patient was nauseous. Other pertinent labs include a lactic acid 2.3 which improved to 1. 5 in the afternoon. Troponin 1 is negative. Triglyceride 181 in August 2017. Patient's presentation is concerning for cholecystitis and pancreatitis. CT of the tendon last night suggest distended gallbladder with acute cholecystitis with stranding that about the head and uncinate process of the pancreas concerning for acute pancreatitis. Gastroenterology and surgery on consult. Patient may require cardiac clearance prior to going for surgery. Keep Plavix on hold. Cardiology evaluation pending keep patient nothing by mouth. Normal saline running at 75 mL in due to decreased ejection fraction and concern for volume overload 11/17: Patient denies having any nausea today. He denies any chest pain or shortness of breath. He does have incentive spirometry. Patient was scheduled for gallbladder surgery with Dr. Pulido this week as he needed to be off Plavix which has been postponed until Wednesday. White count has jumped up to 16.1 , creatinine is 1.12, lites within normal limits. Amylase is down to 447 and lipase is significantly improved at 2076. AST and ALT slightly elevated. Patient encouraged to increase activity. 11/18: Today, patient is complaining of neck pain which he has had for about 4 months. We are starting baclofen and tramadol. Abdominal pain is a lot better. He denies any shortness of breath at this time but he did have an episode where his pulse ox dropped down to 85% off oxygen. He is currently pulse ox a 91-92% on 2 L nasal cannula. Chest x-ray ordered. Besides the neck pain, patient is also complaining of lower back pain most likely from bed. White count remains elevated at 17.2. Liver function tests are normalized. Lipase is down to 1052. 11/19: Patient's family is at bedside and concerned that he has some slurred speech. No slurred speech noted. Generalized weakness. Thinks he pulled a muscle when he was getting up to the chair. Baclofen was started yesterday which will be discontinued. He states that he is feeling tired. Chest x-ray shows pulmonary edema and pleural fluid consistent with congestive heart failure is much worse than last exam. IV fluids will be completely discontinued and IV Lasix started. The troponin has been ordered which is 0.076 and cardiology notified. Discussed in detail with the patient that he has high risk during surgery and may require intubation and ICU care after surgery. Patient does understand this. Surgery is currently scheduled for Wednesday with Dr. Pulido. 11/20: Patient is resting comfortably in bed without any new complaints today. Patient states that he is feeling better. Surgery is scheduled for Wednesday with Dr. Pulido. White count has improved to 10.4. Hemoglobin has been stable at 12.1. Lipase continues to decline. Repeat CBC and comp ordered. Patient continues to tolerate a full liquid diet. Patient denies any nausea or vomiting , abdominal pain, or diarrhea. Patient denies any chest discomfort or difficulty breathing. 11/21: Patient complains of abdominal discomfort. Denies any nausea or vomiting or diarrhea at this time. Patient complains of not having a bowel movement since being in the hospital, however, he is not had a large amount of food intake. Patient is requesting to get up to shower, encouraged patient to shower prior to surgery that is scheduled for Wednesday with Dr. Pulido. WBC 12.6 hemoglobin 12.6, lipase was elevated this morning at 837. 11/22: Patient is going for surgery. 11/23: Patient underwent laparoscopic cholecystectomy yesterday. He has been nothing by mouth but will start clear liquids for lunch today. He is anxious to eat. Abdominal pain is controlled. Yesterday afternoon, he had a drop in his pulse ox 87% and required Ventimask. His blood pressure was elevated for which an extra dose of lisinopril was given. Dilaudid was resumed for pain control. Temperature max 101.1. White count is at 15.8. He is continued on Unasyn. Lipase has normalized and liver function tests are within normal limits. Cardiology has increased Lasix to 20 mg 3 times daily. Repeat EKG was ordered and telemetry added. Pulse ox is 91% on 4 L. Patient does not appear to be dyspneic. He states he has not had a bowel movement and concern for constipation for which Senokot ordered. He states he has been voiding without any problems. Discussed discharge plan patient is planning to return home but we will ask for PT to reevaluate today for possible subacute rehab. Plan to increase activity and possible discharge by tomorrow depending on progress. 11/24: Patient was sitting up in a chair for most the morning and has just now returned to bed. He remains with EDVIN drain in place with serous drainage. White count is decreased to 12. Potassium will be replaced. Patient continues to have constipation with no results from Senokot yesterday. Colace will be scheduled regularly. Patient is currently on O2 at 4 L and Lasix increased to 40 mg twice daily. Patient states he is urinating okay. Lidocaine patch added for chronic neck pain. He has been afebrile 11/25. Patient sitting in bed oriented 3. Is able to provide history. Neck pain is controlled after lidocaine patches. Applied. Continues to be on 4 L of oxygen despite increase of Lasix to 40 mg twice daily. Pro-calcitonin ordered. Since there is no improvement in hypoxia CT chest ordered to evaluate further. Plavix initiated today. Patient still has a EDVIN drain with drainage of 50 mL Review of systems: Constitutional: no fever, no chills, no night sweats. No weight change. EENT: No headache. No blurred vision or double vision, no loss of vision. No nasal drainage or congestion. No epistaxis. No sore throat. Lungs: No shortness of breath, cough, no sputum production. No wheezing. Cardiovascular: No chest pain, no lower extremity edema. No palpitations. No paroxysmal nocturnal dyspnea. No orthopnea. No lightheadedness or dizziness. No syncopal episodes. Abdominal: abdominal pain controlled. No nausea, vomiting. No diarrhea. + constipation. No bloody or tarry stools. No loss of appetite. Genitourinary: No dysuria, increased frequency, urgency. No urinary retention. Musculoskeletal: No myalgias. No muscle weakness, no gait dysfunction, no frequent falls. Neck pain improved Integumentary: No rash or pruritus. No unusual bruising. No change in hair or nails. Psychiatric: No depression. No anxiety. No mood swings. Objective - Vital Signs Vital signs: Vital Signs Temp 98 F 11/25/17 05:00 Pulse 68 11/25/17 05:00 Resp 18 11/25/17 05:00 BP 159/77 11/25/17 05:00 Pulse Ox 96 11/25/17 05:00 Intake & Output 11/24/17 11/25/17 11/25/17 18:59 06:59 18:59 Intake Total 60 410 Output Total 315 250 Balance -255 160 Weight 85.5 kg 85.5 kg Intake: Intake, IV Titration 410 Amount Ampicillin-Sulbactam 3 gm 200 In Sodium Chloride 0.9% 100 ml @ 200 mls/hr IVPB Q6HR [facility] Rx#:[id number] Lactated Ringers 1,000 ml 210 @ 20 mls/hr IV .Q24H [facility] Rx#:[id number] Oral 60 Output: Drainage 65 Left Abdomen 65 Urine 250 250 Other: Voiding Method Urinal Urinal Diaper Diaper Incontinent Incontinent # Voids 2 - Exam General appearance: average body habitus, no distress, obese - EENT Eyes: PERRLA, no photophobia, dentition normal ENT: hard of hearing Ears: bilateral: normal - Neck Neck: no lymphadenopathy, normal ROM, no rigidity, no stridor Carotids: bilateral: upstroke normal Thyroid: bilateral: normal size - Respiratory Respiratory: bilateral: Decreased air entry with basilar crackles - Cardiovascular Rhythm: regular Heart sounds: normal: S1, S2 Abnormal Heart Sounds: systolic murmur ankle Peripheral Edema: absent: None dorsalis pedis Peripheral Pulses: bilateral: Normal - Gastrointestinal General gastrointestinal: normal bowel sounds, soft, no tenderness. Surgical dressing sites are dry. EDVIN drain in place with bloody drainage. - Integumentary Integumentary: no cellulitis, no cyanotic, no decreased turgor, no jaundiced - Neurologic Neurologic: CNII-XII intact - Musculoskeletal Musculoskeletal: gait normal, generalized weakness - Psychiatric Psychiatric: A&O x's 3, appropriate affect - Labs CBC & Chem 7: 11/24/17 09:08 11/24/17 09:08 Assessment and Plan Plan: 1. Acute back pain radiating to the right upper quadrant and epigastric region secondary to cholecystitis and pancreatitis. Likely acalculous cholecystitis from the CT finding ultrasound suggestive of sludge in the neck but is not clear due to bowel gas, fluid has to be administrated cautiously as patient has a ejection fraction 30%. Patient received 1 L of IV fluid in the ER currently off fluids Watch for any shortness of breath or sign of fluid overload. 2 cholecystitis on Unasyn. Blood cultures no growth Likely secondary to gallstones though CT does not suggest any gallstones. Ultrasound concerning for sludge in the neck. Status post lap cholecystectomy on November 22 3. Acute pancreatitis secondary to gallstones. Lipase normalized fluid on hold 4. h/o V. fib/V. tach - Continue amiodarone 200 mg po daily 5. CAD post MN with cardiac arrest status post PCI back in 2013. Continue metoprolol 25 mg orally twice every day, amlodipine 12.5 mg by mouth daily, lisinopril 5 mg by mouth daily, aspirin 81 mg orally once every day Plavix resumed today 6. Hyperlipidemia. Continue patient on low-cholesterol diet. 7. Hypertension. Continue metoprolol 25 mg orally twice every day, Imuran drawn 12.5 mg by mouth daily, lisinopril 5 mg by mouth daily 8. Post partial thyroidectomy. 9. AMD. Stable at this point in time. 10. History of PUD. Continue Protonix 40 mg orally once every day. 11. Osteoarthritis. Stable. 12. Ischemic cardiomyopathy s/p AICD Stable at this time ejection fraction similar to the previous echo 13. DVT prophylaxis. Lovenox 40 mg subcutaneously every 24 hours. 14. GI prophylaxis. Protonix 40 mg orally once every day. 15. Admit to inpatient. 16. Estimate length of stay 2 midnights. 17 acute hypoxic respiratory failure secondary to acute CHF exacerbation with possible underlying pneumonia CT chest ordered. Continue antibiotics. Pro- calcitonin ordered
--- NOTE | 2017-11-25 13:00 | CT ---
EXAMINATION TYPE: CT chest wo con DATE OF EXAM: 11/25/2017 COMPARISON: Chest radiograph of the same date HISTORY: Hypoxia CT DLP: 522.10 mGycm. Automated Exposure Control for Dose Reduction was Utilized. TECHNIQUE: CT scan of the thorax is performed without IV contrast. FINDINGS: LUNGS: Mild paraseptal emphysematous changes are most pronounced at the lung apices. There are small bilateral pleural effusions with associated compressive atelectasis greatest at the lung bases. Pleur al calcifications are noted on the right with granulomatous changes of the lungs. 2 mm solid pulmonar y nodules the right upper lobe is subpleural on image 22. MEDIASTINUM: There is global cardiomegaly, left chest wall cardiac device, moderate to severe coronar y artery calcifications, hilar benign calcified granulomas, enlargement of the main pulmonary artery measuring 3.2 cm, and ascending thoracic aortic aneurysm measuring 4.6 cm within the mediastinum. The re is also surgical absence of the left thyroid gland and heterogenous hypertrophy of the right thyro id gland with extent to the sternal notch. Lack of IV contrast is noted to limit evaluation for media stinal and especially hilar adenopathy. There are no definitive greater than 1 cm hilar or mediastina l lymph nodes. No pericardial effusion OTHER: Surgical drain is partially visualized within the right upper quadrant as seen best on coronal images. Punctate foci of pneumoperitoneum are seen adjacent to the surgical drain, presumably from r ecent surgical intervention/procedure. Moderate multilevel degenerative changes of the spine are note d there is an accentuated thoracic kyphosis. Few nonobstructing renal calculi are seen on the right o n the coronal images only. IMPRESSION: 1. Small bilateral pleural effusions with associated bibasilar compressive atelectasis. 2. Partial visualization of a surgical drain in the right upper quadrant with associated pneumoperito neum.. 3. Global cardiomegaly and moderate to severe coronary artery calcifications. 4. Mild paraseptal emphysema. 5. Ascending thoracic aortic aneurysm.
--- NOTE | 2017-11-25 14:22 | P.PN ---
Subjective Mr. Carrillo is seen and examined sitting up in the chair. Past medical history significant for coronary artery disease s/p stenting of mid-LAD 1993 x2, mid RCA and mid PLB 2001 and mid RCA, proxRCA 2013. He also has ischemic cardiomyopathy, chronic systolic heart failure, dyslipidemia, hypertension, hypothyroid, history of v-fib and permanent single chamber ICD in place. He follows with Dr. Kearns in the office. He underwent cholecystectomy with drain placement Wednesday. He is seen and examined sitting up in the chair with family at the bedside. He apparently was not feeling very well this morning and was complaining of abdominal pain and bloating. He appears very comfortable at present time. Chest xray obtained this morning shows pulmonary venous hypertension and interstitial edema additional follow-up recommended possibility of basilar effusions, atelectasis versus edema and pneumonia is not entirely excluded. A CT of the chest was obtained and show small bilateral pleural effusions with associated bibasilar compressive atelectasis. He denies chest pain, shortness of breath, dizziness or palpitations. Telemetry tracings indicate sinus mechanism with no acute arrhythmia or abnormality. Blood pressure 151/74 heart rate 63 afebrile maintaining oxygen saturation on room air. Objective - Vital Signs Vital signs: Vital Signs Temp 97.9 F 11/25/17 13:01 Pulse 63 11/25/17 13:01 Resp 16 11/25/17 13:01 BP 151/74 11/25/17 13:01 Pulse Ox 97 11/25/17 13:01 Intake & Output 11/24/17 11/25/17 11/25/17 18:59 06:59 18:59 Intake Total 60 410 Output Total 315 250 300 Balance -255 160 -300 Weight 85.5 kg 85.5 kg Intake: Intake, IV Titration 410 Amount Ampicillin-Sulbactam 3 gm 200 In Sodium Chloride 0.9% 100 ml @ 200 mls/hr IVPB Q6HR [facility] Rx#:[id number] Lactated Ringers 1,000 ml 210 @ 20 mls/hr IV .Q24H [facility] Rx#:[id number] Oral 60 Output: Drainage 65 Left Abdomen 65 Urine 250 250 300 Other: Voiding Method Urinal Urinal Diaper Diaper Incontinent Incontinent # Voids 2 1 - Exam GENERAL: In no acute distress. NECK: Supple without JVD or thyromegaly. LUNGS: Clear to auscultation bilaterally. Diminished.. Respirations are equal and unlabored. No wheezes, rales or rhonchi. HEART: Regular rate and rhythm with systolic ejection murmur at the base, no rubs or gallops. S1 and S2 heard. EXTREMITIES: Normal range of motion, trace nonpitting bilateral lower extremity edema. No clubbing or cyanosis. Peripheral pulses intact. - Labs CBC & Chem 7: 11/24/17 09:08 11/24/17 09:08 Assessment and Plan Assessment: ASSESSMENT Acute pancreatitis, resolved Acute cholecystitis, s/p cholecystectomy POD#1 Leukocytosis Febrile illness Aucte hypoxic respiratory failure. Possible pneumonia with fever noted last night and tachycardia. Actue on chronic systolic heart failure, EF 25-30%. History of coronary artery disease s/p multiple stent placements. Last 2013. Ischemic cardiomyopathy Hypertension Dyslipidemia s/p AICD placement secondary to cardiomyopathy and VT/VF PLAN Lungs are clear on exam today. Transition to oral diuretics 40 mg PO BID. Plavix has been resumed. Continue to encourage deep breathing and incentive spirometer use. Nurse Practitioner note has been reviewed, I agree with a documented findings and plan of care. Patient was seen and examined.
[2017-11-25] MEDS: FUROSEMIDE 40 MG TAB PO SCH (16:57)
[2017-11-25] MEDS: LACTATED RINGERS 1,000 ML IV SCH (19:28)
[2017-11-25] MEDS: ATORVASTATIN 80 MG TAB PO SCH (21:32)
[2017-11-26] MEDS: HYDROcodone/APAP 5-325MG 1 EACH TAB PO PRN ×2 (04:27→18:25)
[2017-11-26] MEDS: AMPICILLIN-SULBACTAM 3 GM in SODIUM CHLORIDE 0.9% 100 ML IVPB SCH ×3 (05:44→17:51)
[2017-11-26] MEDS: AMIODARONE 200 MG TAB PO SCH (07:57)
[2017-11-26] MEDS: ASPIRIN 81 MG PO SCH (07:57)
[2017-11-26] MEDS: PANTOPRAZOLE 40 MG TABLET PO SCH (07:57)
[2017-11-26] MEDS: FLUTICASONE 50MCG/SPRAY NASAL 16GM EA NOSTRIL SCH (07:58)
[2017-11-26] MEDS: LIDOCAINE 5% PATCH TOPICAL SCH (07:58)
[2017-11-26] MEDS: CLOPIDOGREL 75 MG TAB PO SCH (07:58)
[2017-11-26] MEDS: FUROSEMIDE 40 MG TAB PO SCH ×2 (07:58→17:51)
[2017-11-26] MEDS: DOCUSATE 100 MG CAP PO SCH ×2 (07:58→21:09)
[2017-11-26] MEDS: METOPROLOL TARTRATE 50 MG TAB PO SCH ×2 (08:00→21:10)
[2017-11-26] MEDS: POTASSIUM CHLORIDE ER 20 MEQ TAB.ER PO SCH (08:00)
[2017-11-26] MEDS: LISINOPRIL 10 MG TAB PO SCH ×2 (08:00→21:10)
[2017-11-26] MEDS: POLYETHYLENE GLYCOL 3350 17 GM POWD.PACK PO SCH (08:00)
[2017-11-26] MEDS: NYSTATIN 100,000 UNIT/ML SUSP 500,000 UNIT/5 ML CUP PO SCH ×4 (08:00→21:09)
[2017-11-26] MEDS: SPIRONOLACTONE 25 MG TAB PO SCH (08:01)
[2017-11-26 09:48] LABS: ALT 38 U/L (21-72); AST 34 U/L (17-59); Albumin 2.4 g/dL (3.5-5.0); Alkaline Phosphatase 88 U/L (38-126); Anion Gap 6 mmol/L; Blood Urea Nitrogen 17 mg/dL (9-20); Calcium 8.5 mg/dL (8.4-10.2); Carbon Dioxide 29 mmol/L (22-30); Chloride 98 mmol/L (98-107); Glucose 115 mg/dL (74-99); Potassium 4.2 mmol/L (3.5-5.1); Sodium 133 mmol/L (137-145); Total Bilirubin 0.7 mg/dL (0.2-1.3); Total Protein 5.1 g/dL (6.3-8.2)
[2017-11-26] MEDS ORDERED: METOLAZONE 2.5 MG TAB PO SCH (10:45)
--- NOTE | 2017-11-26 11:55 | P.PN ---
Subjective Progress Note Date: 11/26/17 82-year-old male seen this morning at bedside patient states he has been up in a chair breathing feels improved denying chest pain dizziness or lightheadedness pain medication effective for pain control EDVIN drain in place 45 ml of bloody drainage dressings to surgical site dry reports no nausea vomiting urinating no difficulty afebrile nasal cannula at 4 L sats are documented 91% Postop November 22 laparoscopic cholecystectomy for cholecystitis pancreatitis Objective - Vital Signs Vital signs: Vital Signs Temp 98.0 F 11/26/17 04:28 Pulse 67 11/26/17 04:28 Resp 16 11/26/17 04:28 BP 170/86 11/26/17 04:52 Pulse Ox 91 L 11/26/17 04:28 Intake & Output 11/25/17 11/26/17 11/26/17 18:59 06:59 18:59 Intake Total 180 160 Output Total 345 30 Balance -165 160 -30 Weight 85.5 kg 98.4 kg Intake: Intake, IV Titration 180 100 Amount Ampicillin-Sulbactam 3 gm 100 100 In Sodium Chloride 0.9% 100 ml @ 200 mls/hr IVPB Q6HR [facility] Rx#:[id number] Lactated Ringers 1,000 ml 80 @ 20 mls/hr IV .Q24H [facility] Rx#:[id number] Oral 60 Output: Drainage 45 30 Left Abdomen 45 30 Urine 300 Other: Voiding Method Urinal Urinal Diaper Diaper Incontinent Incontinent # Voids 3 - Exam Physical exam pleasant 82-year-old gentleman sitting in bed pleasant cooperative alert appears in no acute distress lungs posterior diminished at the bases upper airways no wheezing sats on 4 L no cough noted no conversational dyspnea noted Heart S1-S2 audible denying chest pain Abdomen soft nondistended surgical tenderness appropriate bowel tones present states no bowel movement no nausea no vomiting EDVIN drain serous drainage noted urinating no difficulty Extremities noted - Labs CBC & Chem 7: 11/24/17 09:08 11/26/17 08:28 Labs: Abnormal Lab Results - Last 24 Hours (Table) 11/24/17 11/26/17 Range/Units 09:08 08:28 Sodium 133 L (137-145) mmol/L Creatinine 0.65 L (0.66-1.25) mg/dL Glucose 115 H (74-99) mg/dL Total Protein 5.1 L (6.3-8.2) g/dL Albumin 2.4 L (3.5-5.0) g/dL Procalcitonin 1.02 H (0.02-0.09) ng/mL Assessment and Plan Assessment: Impression Present on admission right upper quadrant abdominal pain with a CT abdomen and pelvis report gallbladder distended with adjacent stranding suggesting acute cholecystitis Present on admission elevated lipase pancreatitis unclear etiology possible biliary pancreatitis Known coronary artery disease with prior coronary stenting on Plavix Cardiomyopathy with AICD Peptic ulcer disease Prior to admission fall did not lose consciousness strike left forehead and left shoulder Postop September 22 laparoscopic cholecystectomy for acute cholecystitis Hypokalemia Plan Pain control Continue postop surgical care Will follow closely with you DVT and GI prophylaxis Increase activity increase use of the incentive spirometer Plavix restarted On IV Unasyn per the attending Remove the EDVIN drain today The above impression and plan of care have been discussed and directed by signing physician. Glenny Lunsford nurse practitioner acting as scribe for signing physician.
--- NOTE | 2017-11-26 12:07 | P.PN ---
Subjective Progress Note Date: 11/26/17 This is an 82-year-old male one of Dr. Hassan with a previous medical history significant for CAD post the cardiac arrest with ischemic cardiomyopathy post AICD implantation, left heart catheterization with PCI back in 2013, chronic systolic heart failure with EF 35 %, peptic ulcer disease, hyperlipidemia, hypothyroidism, osteoarthritis. Patient was admitted in February 2016 for dizziness and subsequently his ICD fired first time and it did fire again the second time V. fib V. tach was detected. ICD was interrogated and adjusted from 25-35 J. Last admission in `2016 for hyponatremia. Patient comes in to the ER with significant back pain that started last night radiated to the epigastric area. Patient also endorses nausea but no episode of vomiting. He denies any previous augmentation of severe chest pain. Since the pain did not get better patient decided to come to the ER. On evaluation in the ER patient had a lipase of 10,000-34 and an amylase of 593. LFTs suggested alkaline phosphatase 140 with normal bilirubin and AST and ALT. Patient denies history of alcoholism. Ultrasound abdomen was obtained that suggested cholecystitis. Possible sludge near the neck with wall thickening and pericholecystic fluid was seen. Echocardiogram was obtained which suggested EF of 25-30% with severe global hypokinesia.Vitals obtained this morning suggests tachycardia, blood pressure 205/137, saturating well on room air. Patient on evaluation is nauseous and having multiple bouts of vomiting uncontrolled on Zofran and Reglan. Oral medication could not be an administrated as patient was nauseous. Other pertinent labs include a lactic acid 2.3 which improved to 1. 5 in the afternoon. Troponin 1 is negative. Triglyceride 181 in August 2017. Patient's presentation is concerning for cholecystitis and pancreatitis. CT of the tendon last night suggest distended gallbladder with acute cholecystitis with stranding that about the head and uncinate process of the pancreas concerning for acute pancreatitis. Gastroenterology and surgery on consult. Patient may require cardiac clearance prior to going for surgery. Keep Plavix on hold. Cardiology evaluation pending keep patient nothing by mouth. Normal saline running at 75 mL in due to decreased ejection fraction and concern for volume overload 11/17: Patient denies having any nausea today. He denies any chest pain or shortness of breath. He does have incentive spirometry. Patient was scheduled for gallbladder surgery with Dr. Pulido this week as he needed to be off Plavix which has been postponed until Wednesday. White count has jumped up to 16.1 , creatinine is 1.12, lites within normal limits. Amylase is down to 447 and lipase is significantly improved at 2076. AST and ALT slightly elevated. Patient encouraged to increase activity. 11/18: Today, patient is complaining of neck pain which he has had for about 4 months. We are starting baclofen and tramadol. Abdominal pain is a lot better. He denies any shortness of breath at this time but he did have an episode where his pulse ox dropped down to 85% off oxygen. He is currently pulse ox a 91-92% on 2 L nasal cannula. Chest x-ray ordered. Besides the neck pain, patient is also complaining of lower back pain most likely from bed. White count remains elevated at 17.2. Liver function tests are normalized. Lipase is down to 1052. 11/19: Patient's family is at bedside and concerned that he has some slurred speech. No slurred speech noted. Generalized weakness. Thinks he pulled a muscle when he was getting up to the chair. Baclofen was started yesterday which will be discontinued. He states that he is feeling tired. Chest x-ray shows pulmonary edema and pleural fluid consistent with congestive heart failure is much worse than last exam. IV fluids will be completely discontinued and IV Lasix started. The troponin has been ordered which is 0.076 and cardiology notified. Discussed in detail with the patient that he has high risk during surgery and may require intubation and ICU care after surgery. Patient does understand this. Surgery is currently scheduled for Wednesday with Dr. Pulido. 11/20: Patient is resting comfortably in bed without any new complaints today. Patient states that he is feeling better. Surgery is scheduled for Wednesday with Dr. Pulido. White count has improved to 10.4. Hemoglobin has been stable at 12.1. Lipase continues to decline. Repeat CBC and comp ordered. Patient continues to tolerate a full liquid diet. Patient denies any nausea or vomiting , abdominal pain, or diarrhea. Patient denies any chest discomfort or difficulty breathing. 11/21: Patient complains of abdominal discomfort. Denies any nausea or vomiting or diarrhea at this time. Patient complains of not having a bowel movement since being in the hospital, however, he is not had a large amount of food intake. Patient is requesting to get up to shower, encouraged patient to shower prior to surgery that is scheduled for Wednesday with Dr. Pulido. WBC 12.6 hemoglobin 12.6, lipase was elevated this morning at 837. 11/22: Patient is going for surgery. 11/23: Patient underwent laparoscopic cholecystectomy yesterday. He has been nothing by mouth but will start clear liquids for lunch today. He is anxious to eat. Abdominal pain is controlled. Yesterday afternoon, he had a drop in his pulse ox 87% and required Ventimask. His blood pressure was elevated for which an extra dose of lisinopril was given. Dilaudid was resumed for pain control. Temperature max 101.1. White count is at 15.8. He is continued on Unasyn. Lipase has normalized and liver function tests are within normal limits. Cardiology has increased Lasix to 20 mg 3 times daily. Repeat EKG was ordered and telemetry added. Pulse ox is 91% on 4 L. Patient does not appear to be dyspneic. He states he has not had a bowel movement and concern for constipation for which Senokot ordered. He states he has been voiding without any problems. Discussed discharge plan patient is planning to return home but we will ask for PT to reevaluate today for possible subacute rehab. Plan to increase activity and possible discharge by tomorrow depending on progress. 11/24: Patient was sitting up in a chair for most the morning and has just now returned to bed. He remains with EDVIN drain in place with serous drainage. White count is decreased to 12. Potassium will be replaced. Patient continues to have constipation with no results from Senokot yesterday. Colace will be scheduled regularly. Patient is currently on O2 at 4 L and Lasix increased to 40 mg twice daily. Patient states he is urinating okay. Lidocaine patch added for chronic neck pain. He has been afebrile 11/25. Patient sitting in bed oriented 3. Is able to provide history. Neck pain is controlled after lidocaine patches. Applied. Continues to be on 4 L of oxygen despite increase of Lasix to 40 mg twice daily. Pro-calcitonin ordered. Since there is no improvement in hypoxia CT chest ordered to evaluate further. Plavix initiated today. Patient still has a EDVIN drain with drainage of 50 mL 11/26 patient leg in bed comfortable. Denies any shortness of breath or cough. CT chest bilateral small pleural effusion with compressive atelectasis with partial visualization of the surgical drape with associated. Told be a global cardiomegaly with moderate to severe coronary calcification and emphysema seen. Lasix reduced to 40 mg by mouth twice a day. Patient's hypoxic at 4 L at 90- 91%*encouraged incentive spirometry. Pro-calcitonin levels are high but no consolidation seen on chest CT to suggest pneumonia, could be related to recent surgery and stress associated. We will repeat in 48 hours PTOT consult in possible discharge to subacute rehab on Wednesday Constitutional: Reports fatigue, Denies chills, Denies fever Eyes: denies blurred vision, denies pain Ears, nose, mouth and throat: Denies headache, Denies sore throat, Denies vertigo Cardiovascular: Reports shortness of breath, Denies chest pain, Denies syncope Respiratory: denies cough, Reports dyspnea, Denies cough with sputum, Denies excessive sputum, Denies hemoptysis, Denies home oxygen, Denies wheezing Gastrointestinal: Denies abdominal pain, Denies diarrhea, Denies nausea, Denies vomiting Genitourinary: Denies dysuria, Denies hematuria Musculoskeletal: Denies myalgias neck pain improved Integumentary: Denies pruritus, Denies rash Neurological: Denies numbness, Denies weakness Psychiatric: Denies anxiety, Denies depression Endocrine: Denies fatigue, Denies weight change Objective - Vital Signs Vital signs: Vital Signs Temp 98.0 F 11/26/17 04:28 Pulse 67 11/26/17 04:28 Resp 16 11/26/17 04:28 BP 170/86 11/26/17 04:52 Pulse Ox 91 L 11/26/17 04:28 Intake & Output 11/25/17 11/26/17 11/26/17 18:59 06:59 18:59 Intake Total 180 160 Output Total 345 30 Balance -165 160 -30 Weight 85.5 kg 98.4 kg Intake: Intake, IV Titration 180 100 Amount Ampicillin-Sulbactam 3 gm 100 100 In Sodium Chloride 0.9% 100 ml @ 200 mls/hr IVPB Q6HR JONO Rx#:[id number] Lactated Ringers 1,000 ml 80 @ 20 mls/hr IV .Q24H JONO Rx#:[id number] Oral 60 Output: Drainage 45 30 Left Abdomen 45 30 Urine 300 Other: Voiding Method Urinal Urinal Diaper Diaper Incontinent Incontinent # Voids 3 - Exam General appearance: average body habitus, no distress, obese - EENT Eyes: PERRLA, no photophobia, dentition normal ENT: hard of hearing Ears: bilateral: normal - Neck Neck: no lymphadenopathy, normal ROM, no rigidity, no stridor Carotids: bilateral: upstroke normal Thyroid: bilateral: normal size - Respiratory Respiratory: bilateral: Decreased air entry with basilar crackles improved since yesterday - Cardiovascular Rhythm: regular Heart sounds: normal: S1, S2 Abnormal Heart Sounds: systolic murmur ankle Peripheral Edema: absent: None dorsalis pedis Peripheral Pulses: bilateral: minimal - Gastrointestinal General gastrointestinal: normal bowel sounds, soft, no tenderness. Surgical dressing sites are dry. EDVIN drain in place with bloody drainage. - Integumentary Integumentary: no cellulitis, no cyanotic, no decreased turgor, no jaundiced - Neurologic Neurologic: CNII-XII intact - Musculoskeletal Musculoskeletal: gait normal, generalized weakness - Psychiatric Psychiatric: A&O x's 3, appropriate affect - Labs CBC & Chem 7: 11/24/17 09:08 10 08:28 Labs: Abnormal Lab Results - Last 24 Hours (Table) 11/24/17 11/26/17 Range/Units 09:08 08:28 Sodium 133 L (137-145) mmol/L Creatinine 0.65 L (0.66-1.25) mg/dL Glucose 115 H (74-99) mg/dL Total Protein 5.1 L (6.3-8.2) g/dL Albumin 2.4 L (3.5-5.0) g/dL Procalcitonin 1.02 H (0.02-0.09) ng/mL Assessment and Plan Plan: 1. Acute back pain radiating to the right upper quadrant and epigastric region secondary to cholecystitis and pancreatitis. Resolved Likely acalculous cholecystitis from the CT finding ultrasound suggestive of sludge in the neck but is not clear due to bowel gas, fluid has to be administrated cautiously as patient has a ejection fraction 30%. Patient received 1 L of IV fluid in the ER currently off fluids Watch for any shortness of breath or sign of fluid overload. 2 cholecystitis on Unasyn. Blood cultures no growth Likely secondary to gallstones though CT does not suggest any gallstones. Ultrasound concerning for sludge in the neck. Status post lap cholecystectomy on November 22 3. Acute pancreatitis secondary to gallstones. Lipase normalized fluid on hold 4. h/o V. fib/V. tach - Continue amiodarone 200 mg po daily 5. CAD post [facility] with cardiac arrest status post PCI back in 2013. Continue metoprolol 25 mg orally twice every day, amlodipine 12.5 mg by mouth daily, lisinopril 5 mg by mouth daily, aspirin 81 mg orally once every day Plavix resumed today 6. Hyperlipidemia. Continue patient on low-cholesterol diet. 7. Hypertension. Continue metoprolol 25 mg orally twice every day, Imuran drawn 12.5 mg by mouth daily, lisinopril 5 mg by mouth daily 8. Post partial thyroidectomy. 9. AMD. Stable at this point in time. 10. History of PUD. Continue Protonix 40 mg orally once every day. 11. Osteoarthritis. Stable. 12. Ischemic cardiomyopathy s/p AICD Stable at this time ejection fraction similar to the previous echo 13. DVT prophylaxis. Lovenox 40 mg subcutaneously every 24 hours. 14. GI prophylaxis. Protonix 40 mg orally once every day. 15 acute hypoxic respiratory failure secondary to acute CHF exacerbation with possible underlying pneumonia CT chest ordered. Continue antibiotics. Pro- calcitonin increased though CT chest didnot suggest any consolidation to suggest pneumonia , b/l bibasilar atelectasis and pleural effusion noted. Continue Lasix 40 mg by mouth twice a day. Metolazone initiated at 2.5 mg every 48 hours as patient's weight is not decreased since admission with bilateral lower extremity edema. on exam
[2017-11-26] MEDS: METOLAZONE 2.5 MG TAB PO SCH (12:51)
[2017-11-26] MEDS: METOCLOPRAMIDE 5 MG/ML 2 ML VIAL IVP PRN (18:25)
[2017-11-26] MEDS: ATORVASTATIN 80 MG TAB PO SCH (21:10)
[2017-11-26] MEDS: ONDANSETRON 4 MG/2 ML VIAL IVP PRN (21:10)
[2017-11-27] MEDS: AMPICILLIN-SULBACTAM 3 GM in SODIUM CHLORIDE 0.9% 100 ML IVPB SCH ×4 (00:28→17:57)
[2017-11-27 07:56] LABS: ALT 38 U/L (21-72); AST 29 U/L (17-59); Albumin 2.3 g/dL (3.5-5.0); Alkaline Phosphatase 86 U/L (38-126); Anion Gap 7 mmol/L; Blood Urea Nitrogen 17 mg/dL (9-20); Calcium 8.5 mg/dL (8.4-10.2); Carbon Dioxide 31 mmol/L (22-30); Chloride 95 mmol/L (98-107); Glucose 101 mg/dL (74-99); Potassium 4.3 mmol/L (3.5-5.1); Sodium 133 mmol/L (137-145); Total Bilirubin 0.7 mg/dL (0.2-1.3)
[2017-11-27] MEDS: POLYETHYLENE GLYCOL 3350 17 GM POWD.PACK PO SCH (09:02)
[2017-11-27] MEDS: NYSTATIN 100,000 UNIT/ML SUSP 500,000 UNIT/5 ML CUP PO SCH ×4 (09:02→22:14)
[2017-11-27] MEDS: POTASSIUM CHLORIDE ER 20 MEQ TAB.ER PO SCH (09:02)
[2017-11-27] MEDS: SPIRONOLACTONE 25 MG TAB PO SCH (09:02)
[2017-11-27] MEDS: METOPROLOL TARTRATE 50 MG TAB PO SCH ×2 (09:02→22:14)
[2017-11-27] MEDS: FLUTICASONE 50MCG/SPRAY NASAL 16GM EA NOSTRIL SCH (09:03)
[2017-11-27] MEDS: FUROSEMIDE 40 MG TAB PO SCH ×2 (09:03→16:25)
[2017-11-27] MEDS: CLOPIDOGREL 75 MG TAB PO SCH (09:03)
[2017-11-27] MEDS: LISINOPRIL 10 MG TAB PO SCH ×2 (09:03→22:14)
[2017-11-27] MEDS: DOCUSATE 100 MG CAP PO SCH ×2 (09:03→22:14)
[2017-11-27] MEDS: ASPIRIN 81 MG PO SCH (09:03)
[2017-11-27] MEDS: AMIODARONE 200 MG TAB PO SCH (09:04)
[2017-11-27] MEDS: PANTOPRAZOLE 40 MG TABLET PO SCH (09:04)
[2017-11-27] MEDS: LIDOCAINE 5% PATCH TOPICAL SCH (09:06)
[2017-11-27] MEDS: ATORVASTATIN 80 MG TAB PO SCH (22:14)
[2017-11-28] MEDS: AMPICILLIN-SULBACTAM 3 GM in SODIUM CHLORIDE 0.9% 100 ML IVPB SCH ×4 (00:25→17:19)
[2017-11-28 06:48] LABS: Basophils % (A) 0 %; Eosinophils # (A) 0.5 k/uL (0-0.7); Eosinophils % (A) 4 %; HCT 37.7 % (39.0-53.0); HGB 12.3 gm/dL (13.0-17.5); Lymphocytes # (A) 0.9 k/uL (1.0-4.8); Lymphocytes % (A) 8 %; MCH 30.9 pg (25.0-35.0); MCHC 32.6 g/dL (31.0-37.0); MCV 94.7 fL (80.0-100.0); Mean Platelet Volume 7.6; Monocytes # (A) 0.6 k/uL (0-1.0); Monocytes % (A) 5 %; Neutrophils # (A) 9.6 k/uL (1.3-7.7); Neutrophils % (A) 81 %; Platelet Count 304 k/uL (150-450); RBC 3.98 m/uL (4.30-5.90); RDW 12.7 % (11.5-15.5); WBC 11.8 k/uL (3.8-10.6)
[2017-11-28 07:01] LABS: Albumin 2.4 g/dL (3.5-5.0); Calcium 8.8 mg/dL (8.4-10.2); Magnesium 1.9 mg/dL (1.6-2.3); Potassium 4.4 mmol/L (3.5-5.1); Total Bilirubin 0.7 mg/dL (0.2-1.3); Total Protein 5.2 g/dL (6.3-8.2)
[2017-11-28] MEDS: NYSTATIN 100,000 UNIT/ML SUSP 500,000 UNIT/5 ML CUP PO SCH ×4 (08:46→21:19)
[2017-11-28] MEDS: SPIRONOLACTONE 25 MG TAB PO SCH (08:46)
[2017-11-28] MEDS: METOPROLOL TARTRATE 50 MG TAB PO SCH ×2 (08:47→21:19)
[2017-11-28] MEDS: AMIODARONE 200 MG TAB PO SCH (08:48)
[2017-11-28] MEDS: ASPIRIN 81 MG PO SCH (08:48)
[2017-11-28] MEDS: CLOPIDOGREL 75 MG TAB PO SCH (08:48)
[2017-11-28] MEDS: PANTOPRAZOLE 40 MG TABLET PO SCH (08:48)
[2017-11-28] MEDS: DOCUSATE 100 MG CAP PO SCH ×2 (08:48→21:19)
[2017-11-28] MEDS: FLUTICASONE 50MCG/SPRAY NASAL 16GM EA NOSTRIL SCH (08:48)
[2017-11-28] MEDS: FUROSEMIDE 40 MG TAB PO SCH ×2 (08:48→15:08)
[2017-11-28] MEDS: LISINOPRIL 10 MG TAB PO SCH ×2 (08:48→21:20)
[2017-11-28] MEDS: LIDOCAINE 5% PATCH TOPICAL SCH (08:48)
[2017-11-28] MEDS: POTASSIUM CHLORIDE ER 20 MEQ TAB.ER PO SCH (08:48)
[2017-11-28] MEDS: POLYETHYLENE GLYCOL 3350 17 GM POWD.PACK PO SCH (08:48)
[2017-11-28] MEDS: METOLAZONE 2.5 MG TAB PO SCH (12:01)
--- NOTE | 2017-11-28 12:09 | P.PN ---
Subjective Progress Note Date: 11/27/17 This is an 82-year-old male one of Dr. Hassan with a previous medical history significant for CAD post the cardiac arrest with ischemic cardiomyopathy post AICD implantation, left heart catheterization with PCI back in 2013, chronic systolic heart failure with EF 35 %, peptic ulcer disease, hyperlipidemia, hypothyroidism, osteoarthritis. Patient was admitted in February 2016 for dizziness and subsequently his ICD fired first time and it did fire again the second time V. fib V. tach was detected. ICD was interrogated and adjusted from 25-35 J. Last admission in `2016 for hyponatremia. Patient comes in to the ER with significant back pain that started last night radiated to the epigastric area. Patient also endorses nausea but no episode of vomiting. He denies any previous augmentation of severe chest pain. Since the pain did not get better patient decided to come to the ER. On evaluation in the ER patient had a lipase of 10,000-34 and an amylase of 593. LFTs suggested alkaline phosphatase 140 with normal bilirubin and AST and ALT. Patient denies history of alcoholism. Ultrasound abdomen was obtained that suggested cholecystitis. Possible sludge near the neck with wall thickening and pericholecystic fluid was seen. Echocardiogram was obtained which suggested EF of 25-30% with severe global hypokinesia.Vitals obtained this morning suggests tachycardia, blood pressure 205/137, saturating well on room air. Patient on evaluation is nauseous and having multiple bouts of vomiting uncontrolled on Zofran and Reglan. Oral medication could not be an administrated as patient was nauseous. Other pertinent labs include a lactic acid 2.3 which improved to 1. 5 in the afternoon. Troponin 1 is negative. Triglyceride 181 in August 2017. Patient's presentation is concerning for cholecystitis and pancreatitis. CT of the tendon last night suggest distended gallbladder with acute cholecystitis with stranding that about the head and uncinate process of the pancreas concerning for acute pancreatitis. Gastroenterology and surgery on consult. Patient may require cardiac clearance prior to going for surgery. Keep Plavix on hold. Cardiology evaluation pending keep patient nothing by mouth. Normal saline running at 75 mL in due to decreased ejection fraction and concern for volume overload 11/17: Patient denies having any nausea today. He denies any chest pain or shortness of breath. He does have incentive spirometry. Patient was scheduled for gallbladder surgery with Dr. Pulido this week as he needed to be off Plavix which has been postponed until Wednesday. White count has jumped up to 16.1 , creatinine is 1.12, lites within normal limits. Amylase is down to 447 and lipase is significantly improved at 2076. AST and ALT slightly elevated. Patient encouraged to increase activity. 11/18: Today, patient is complaining of neck pain which he has had for about 4 months. We are starting baclofen and tramadol. Abdominal pain is a lot better. He denies any shortness of breath at this time but he did have an episode where his pulse ox dropped down to 85% off oxygen. He is currently pulse ox a 91-92% on 2 L nasal cannula. Chest x-ray ordered. Besides the neck pain, patient is also complaining of lower back pain most likely from bed. White count remains elevated at 17.2. Liver function tests are normalized. Lipase is down to 1052. 11/19: Patient's family is at bedside and concerned that he has some slurred speech. No slurred speech noted. Generalized weakness. Thinks he pulled a muscle when he was getting up to the chair. Baclofen was started yesterday which will be discontinued. He states that he is feeling tired. Chest x-ray shows pulmonary edema and pleural fluid consistent with congestive heart failure is much worse than last exam. IV fluids will be completely discontinued and IV Lasix started. The troponin has been ordered which is 0.076 and cardiology notified. Discussed in detail with the patient that he has high risk during surgery and may require intubation and ICU care after surgery. Patient does understand this. Surgery is currently scheduled for Wednesday with Dr. Pulido. 11/20: Patient is resting comfortably in bed without any new complaints today. Patient states that he is feeling better. Surgery is scheduled for Wednesday with Dr. Pulido. White count has improved to 10.4. Hemoglobin has been stable at 12.1. Lipase continues to decline. Repeat CBC and comp ordered. Patient continues to tolerate a full liquid diet. Patient denies any nausea or vomiting , abdominal pain, or diarrhea. Patient denies any chest discomfort or difficulty breathing. 11/21: Patient complains of abdominal discomfort. Denies any nausea or vomiting or diarrhea at this time. Patient complains of not having a bowel movement since being in the hospital, however, he is not had a large amount of food intake. Patient is requesting to get up to shower, encouraged patient to shower prior to surgery that is scheduled for Wednesday with Dr. Pulido. WBC 12.6 hemoglobin 12.6, lipase was elevated this morning at 837. 11/22: Patient is going for surgery. 11/23: Patient underwent laparoscopic cholecystectomy yesterday. He has been nothing by mouth but will start clear liquids for lunch today. He is anxious to eat. Abdominal pain is controlled. Yesterday afternoon, he had a drop in his pulse ox 87% and required Ventimask. His blood pressure was elevated for which an extra dose of lisinopril was given. Dilaudid was resumed for pain control. Temperature max 101.1. White count is at 15.8. He is continued on Unasyn. Lipase has normalized and liver function tests are within normal limits. Cardiology has increased Lasix to 20 mg 3 times daily. Repeat EKG was ordered and telemetry added. Pulse ox is 91% on 4 L. Patient does not appear to be dyspneic. He states he has not had a bowel movement and concern for constipation for which Senokot ordered. He states he has been voiding without any problems. Discussed discharge plan patient is planning to return home but we will ask for PT to reevaluate today for possible subacute rehab. Plan to increase activity and possible discharge by tomorrow depending on progress. 11/24: Patient was sitting up in a chair for most the morning and has just now returned to bed. He remains with EDVIN drain in place with serous drainage. White count is decreased to 12. Potassium will be replaced. Patient continues to have constipation with no results from Senokot yesterday. Colace will be scheduled regularly. Patient is currently on O2 at 4 L and Lasix increased to 40 mg twice daily. Patient states he is urinating okay. Lidocaine patch added for chronic neck pain. He has been afebrile 11/25. Patient sitting in bed oriented 3. Is able to provide history. Neck pain is controlled after lidocaine patches. Applied. Continues to be on 4 L of oxygen despite increase of Lasix to 40 mg twice daily. Pro-calcitonin ordered. Since there is no improvement in hypoxia CT chest ordered to evaluate further. Plavix initiated today. Patient still has a EDVIN drain with drainage of 50 mL 11/26 patient leg in bed comfortable. Denies any shortness of breath or cough. CT chest bilateral small pleural effusion with compressive atelectasis with partial visualization of the surgical drape with associated. Told be a global cardiomegaly with moderate to severe coronary calcification and emphysema seen. Lasix reduced to 40 mg by mouth twice a day. Patient's hypoxic at 4 L at 90- 91%*encouraged incentive spirometry. Pro-calcitonin levels are high but no consolidation seen on chest CT to suggest pneumonia, could be related to recent surgery and stress associated. We will repeat in 48 hours PTOT consult in possible discharge to subacute rehab on Wednesday. 11/27: Patient went to the bathroom earlier today trying to have a bowel movement, patient continues to have some shortness of breath, he was instructed to use incentive spirometer continue oxygen support continue with the current medication continue physical therapy evaluation for possible ECF on Wednesday. Objective - Vital Signs Vital signs: Vital Signs Temp 98.1 F 11/27/17 05:00 Pulse 69 11/27/17 05:00 Resp 18 11/27/17 05:00 BP 165/82 11/27/17 05:00 Pulse Ox 98 11/27/17 05:00 Intake & Output 11/26/17 11/27/17 11/27/17 18:59 06:59 18:59 Intake Total 420 Output Total 40 Balance -40 420 Weight 98.5 kg Intake: Intake, IV Titration 300 Amount Ampicillin-Sulbactam 3 gm 300 In Sodium Chloride 0.9% 100 ml @ 200 mls/hr IVPB Q6HR [facility] Rx#:[id number] Oral 120 Output: Drainage 40 Left Abdomen 40 Other: Voiding Method Urinal Urinal Diaper Diaper Incontinent Incontinent # Voids 3 2 # Bowel Movements 0 - Exam - Exam General appearance: average body habitus, no distress, obese - EENT Eyes: PERRLA, no photophobia, dentition normal ENT: hard of hearing Ears: bilateral: normal - Neck Neck: no lymphadenopathy, normal ROM, no rigidity, no stridor Carotids: bilateral: upstroke normal Thyroid: bilateral: normal size - Respiratory Respiratory: bilateral: Decreased air entry with basilar crackles improved since yesterday - Cardiovascular Rhythm: regular Heart sounds: normal: S1, S2 Abnormal Heart Sounds: systolic murmur ankle Peripheral Edema: absent: None dorsalis pedis Peripheral Pulses: bilateral: minimal - Gastrointestinal General gastrointestinal: normal bowel sounds, soft, no tenderness. Surgical dressing sites are dry. EDVIN drain in place with bloody drainage. - Integumentary Integumentary: no cellulitis, no cyanotic, no decreased turgor, no jaundiced - Neurologic Neurologic: CNII-XII intact - Musculoskeletal Musculoskeletal: gait normal, generalized weakness - Psychiatric Psychiatric: A&O x's 3, appropriate affect - Labs CBC & Chem 7: 11/28/17 06:25 11/28/17 06:25 Labs: Abnormal Lab Results - Last 24 Hours (Table) 11/26/17 Range/Units 08:28 Sodium 133 L (137-145) mmol/L Creatinine 0.65 L (0.66-1.25) mg/dL Glucose 115 H (74-99) mg/dL Total Protein 5.1 L (6.3-8.2) g/dL Albumin 2.4 L (3.5-5.0) g/dL Assessment and Plan Assessment: Assessment and Plan Plan: 1. Acute back pain radiating to the right upper quadrant and epigastric region secondary to cholecystitis and pancreatitis. Resolved Likely acalculous cholecystitis from the CT finding ultrasound suggestive of sludge in the neck but is not clear due to bowel gas, fluid has to be administrated cautiously as patient has a ejection fraction 30%. Patient received 1 L of IV fluid in the ER currently off fluids Watch for any shortness of breath or sign of fluid overload. 2 cholecystitis on Unasyn. Blood cultures no growth Likely secondary to gallstones though CT does not suggest any gallstones. Ultrasound concerning for sludge in the neck. Status post lap cholecystectomy on November 22 3. Acute pancreatitis secondary to gallstones. Lipase normalized fluid on hold 4. h/o V. fib/V. tach - Continue amiodarone 200 mg po daily 5. CAD post PR with cardiac arrest status post PCI back in 2013. Continue metoprolol 25 mg orally twice every day, amlodipine 12.5 mg by mouth daily, lisinopril 5 mg by mouth daily, aspirin 81 mg orally once every day Plavix resumed today 6. Hyperlipidemia. Continue patient on low-cholesterol diet. 7. Hypertension. Continue metoprolol 25 mg orally twice every day, Imuran drawn 12.5 mg by mouth daily, lisinopril 5 mg by mouth daily 8. Post partial thyroidectomy. 9. AMD. Stable at this point in time. 10. History of PUD. Continue Protonix 40 mg orally once every day. 11. Osteoarthritis. Stable. 12. Ischemic cardiomyopathy s/p AICD Stable at this time ejection fraction similar to the previous echo 13. DVT prophylaxis. Lovenox 40 mg subcutaneously every 24 hours. 14. GI prophylaxis. Protonix 40 mg orally once every day. 15 acute hypoxic respiratory failure secondary to acute CHF exacerbation with possible underlying pneumonia CT chest ordered. Continue antibiotics. Pro- calcitonin increased though CT chest didnot suggest any consolidation to suggest pneumonia , b/l bibasilar atelectasis and pleural effusion noted. Continue Lasix 40 mg by mouth twice a day, along with Zaroxolyn 2.5 mg orally daily, monitor the patient's electrolyte as well as magnesium on a daily basis. 16. Medical debility. The patient will need to go for subacute rehabilitation on Wednesday.
[2017-11-28] MEDS ORDERED: BISACODYL 10 MG SUPP RECTAL STA (14:29)
--- NOTE | 2017-11-28 14:29 | P.PN ---
Subjective Progress Note Date: 11/28/17 This is an 82-year-old male one of Dr. Hassan with a previous medical history significant for CAD post the cardiac arrest with ischemic cardiomyopathy post AICD implantation, left heart catheterization with PCI back in 2013, chronic systolic heart failure with EF 35 %, peptic ulcer disease, hyperlipidemia, hypothyroidism, osteoarthritis. Patient was admitted in February 2016 for dizziness and subsequently his ICD fired first time and it did fire again the second time V. fib V. tach was detected. ICD was interrogated and adjusted from 25-35 J. Last admission in `2016 for hyponatremia. Patient comes in to the ER with significant back pain that started last night radiated to the epigastric area. Patient also endorses nausea but no episode of vomiting. He denies any previous augmentation of severe chest pain. Since the pain did not get better patient decided to come to the ER. On evaluation in the ER patient had a lipase of 10,000-34 and an amylase of 593. LFTs suggested alkaline phosphatase 140 with normal bilirubin and AST and ALT. Patient denies history of alcoholism. Ultrasound abdomen was obtained that suggested cholecystitis. Possible sludge near the neck with wall thickening and pericholecystic fluid was seen. Echocardiogram was obtained which suggested EF of 25-30% with severe global hypokinesia.Vitals obtained this morning suggests tachycardia, blood pressure 205/137, saturating well on room air. Patient on evaluation is nauseous and having multiple bouts of vomiting uncontrolled on Zofran and Reglan. Oral medication could not be an administrated as patient was nauseous. Other pertinent labs include a lactic acid 2.3 which improved to 1. 5 in the afternoon. Troponin 1 is negative. Triglyceride 181 in August 2017. Patient's presentation is concerning for cholecystitis and pancreatitis. CT of the tendon last night suggest distended gallbladder with acute cholecystitis with stranding that about the head and uncinate process of the pancreas concerning for acute pancreatitis. Gastroenterology and surgery on consult. Patient may require cardiac clearance prior to going for surgery. Keep Plavix on hold. Cardiology evaluation pending keep patient nothing by mouth. Normal saline running at 75 mL in due to decreased ejection fraction and concern for volume overload 11/17: Patient denies having any nausea today. He denies any chest pain or shortness of breath. He does have incentive spirometry. Patient was scheduled for gallbladder surgery with Dr. Pulido this week as he needed to be off Plavix which has been postponed until Wednesday. White count has jumped up to 16.1 , creatinine is 1.12, lites within normal limits. Amylase is down to 447 and lipase is significantly improved at 2076. AST and ALT slightly elevated. Patient encouraged to increase activity. 11/18: Today, patient is complaining of neck pain which he has had for about 4 months. We are starting baclofen and tramadol. Abdominal pain is a lot better. He denies any shortness of breath at this time but he did have an episode where his pulse ox dropped down to 85% off oxygen. He is currently pulse ox a 91-92% on 2 L nasal cannula. Chest x-ray ordered. Besides the neck pain, patient is also complaining of lower back pain most likely from bed. White count remains elevated at 17.2. Liver function tests are normalized. Lipase is down to 1052. 11/19: Patient's family is at bedside and concerned that he has some slurred speech. No slurred speech noted. Generalized weakness. Thinks he pulled a muscle when he was getting up to the chair. Baclofen was started yesterday which will be discontinued. He states that he is feeling tired. Chest x-ray shows pulmonary edema and pleural fluid consistent with congestive heart failure is much worse than last exam. IV fluids will be completely discontinued and IV Lasix started. The troponin has been ordered which is 0.076 and cardiology notified. Discussed in detail with the patient that he has high risk during surgery and may require intubation and ICU care after surgery. Patient does understand this. Surgery is currently scheduled for Wednesday with Dr. Pulido. 11/20: Patient is resting comfortably in bed without any new complaints today. Patient states that he is feeling better. Surgery is scheduled for Wednesday with Dr. Pulido. White count has improved to 10.4. Hemoglobin has been stable at 12.1. Lipase continues to decline. Repeat CBC and comp ordered. Patient continues to tolerate a full liquid diet. Patient denies any nausea or vomiting , abdominal pain, or diarrhea. Patient denies any chest discomfort or difficulty breathing. 11/21: Patient complains of abdominal discomfort. Denies any nausea or vomiting or diarrhea at this time. Patient complains of not having a bowel movement since being in the hospital, however, he is not had a large amount of food intake. Patient is requesting to get up to shower, encouraged patient to shower prior to surgery that is scheduled for Wednesday with Dr. Pulido. WBC 12.6 hemoglobin 12.6, lipase was elevated this morning at 837. 11/22: Patient is going for surgery. 11/23: Patient underwent laparoscopic cholecystectomy yesterday. He has been nothing by mouth but will start clear liquids for lunch today. He is anxious to eat. Abdominal pain is controlled. Yesterday afternoon, he had a drop in his pulse ox 87% and required Ventimask. His blood pressure was elevated for which an extra dose of lisinopril was given. Dilaudid was resumed for pain control. Temperature max 101.1. White count is at 15.8. He is continued on Unasyn. Lipase has normalized and liver function tests are within normal limits. Cardiology has increased Lasix to 20 mg 3 times daily. Repeat EKG was ordered and telemetry added. Pulse ox is 91% on 4 L. Patient does not appear to be dyspneic. He states he has not had a bowel movement and concern for constipation for which Senokot ordered. He states he has been voiding without any problems. Discussed discharge plan patient is planning to return home but we will ask for PT to reevaluate today for possible subacute rehab. Plan to increase activity and possible discharge by tomorrow depending on progress. 11/24: Patient was sitting up in a chair for most the morning and has just now returned to bed. He remains with EDVIN drain in place with serous drainage. White count is decreased to 12. Potassium will be replaced. Patient continues to have constipation with no results from Senokot yesterday. Colace will be scheduled regularly. Patient is currently on O2 at 4 L and Lasix increased to 40 mg twice daily. Patient states he is urinating okay. Lidocaine patch added for chronic neck pain. He has been afebrile 11/25. Patient sitting in bed oriented 3. Is able to provide history. Neck pain is controlled after lidocaine patches. Applied. Continues to be on 4 L of oxygen despite increase of Lasix to 40 mg twice daily. Pro-calcitonin ordered. Since there is no improvement in hypoxia CT chest ordered to evaluate further. Plavix initiated today. Patient still has a EDVIN drain with drainage of 50 mL 11/26 patient leg in bed comfortable. Denies any shortness of breath or cough. CT chest bilateral small pleural effusion with compressive atelectasis with partial visualization of the surgical drape with associated. Told be a global cardiomegaly with moderate to severe coronary calcification and emphysema seen. Lasix reduced to 40 mg by mouth twice a day. Patient's hypoxic at 4 L at 90- 91%*encouraged incentive spirometry. Pro-calcitonin levels are high but no consolidation seen on chest CT to suggest pneumonia, could be related to recent surgery and stress associated. We will repeat in 48 hours PTOT consult in possible discharge to subacute rehab on Wednesday. 11/27: Patient went to the bathroom earlier today trying to have a bowel movement, patient continues to have some shortness of breath, he was instructed to use incentive spirometer continue oxygen support continue with the current medication continue physical therapy evaluation for possible ECF on Wednesday. 11/28: Patient is complaining of increased bloating and his stomach and he has not had a bowel movement for the past week or so he continues to pass some flatus, he has poor appetite and he has decreased bowel sounds, we will try the patient on Dulcolax suppository 10 mg 1 and if not better will obtain x-rays of the abdomen. Objective - Vital Signs Vital signs: Vital Signs Temp 98.1 F 11/28/17 05:00 Pulse 70 11/28/17 05:00 Resp 18 11/28/17 05:00 BP 155/85 11/28/17 05:00 Pulse Ox 96 11/28/17 05:00 Intake & Output 11/27/17 11/28/17 11/28/17 18:59 06:59 18:59 Intake Total 400 583 Balance 400 583 Weight 98 kg Intake: Intake, IV Titration 100 Amount Ampicillin-Sulbactam 3 gm 100 In Sodium Chloride 0.9% 100 ml @ 200 mls/hr IVPB Q6HR [facility] Rx#:[id number] Oral 400 480 Other 3 Other: Voiding Method Urinal Urinal Urinal Diaper Diaper Diaper Incontinent Incontinent Incontinent # Voids 2 2 - Exam - Exam General appearance: average body habitus, no distress, obese - EENT Eyes: PERRLA, no photophobia, dentition normal ENT: hard of hearing Ears: bilateral: normal - Neck Neck: no lymphadenopathy, normal ROM, no rigidity, no stridor Carotids: bilateral: upstroke normal Thyroid: bilateral: normal size - Respiratory Respiratory: bilateral: Decreased air entry with basilar crackles improved since yesterday - Cardiovascular Rhythm: regular Heart sounds: normal: S1, S2 Abnormal Heart Sounds: systolic murmur ankle Peripheral Edema: absent: None dorsalis pedis Peripheral Pulses: bilateral: minimal - Gastrointestinal General gastrointestinal: normal bowel sounds, soft, no tenderness. Surgical dressing sites are dry. EDVIN drain in place with bloody drainage. - Integumentary Integumentary: no cellulitis, no cyanotic, no decreased turgor, no jaundiced - Neurologic Neurologic: CNII-XII intact - Musculoskeletal Musculoskeletal: gait normal, generalized weakness - Psychiatric Psychiatric: A&O x's 3, appropriate affect - Labs CBC & Chem 7: 11/28/17 06:25 11/28/17 06:25 Labs: Abnormal Lab Results - Last 24 Hours (Table) 11/28/17 11/28/17 Range/Units 06:25 06:25 WBC 11.8 H (3.8-10.6) k/uL RBC 3.98 L (4.30-5.90) m/uL Hgb 12.3 L (13.0-17.5) gm/dL Hct 37.7 L (39.0-53.0) % Neutrophils # 9.6 H (1.3-7.7) k/uL Lymphocytes # 0.9 L (1.0-4.8) k/uL Sodium 132 L (137-145) mmol/L Chloride 92 L (98-107) mmol/L Carbon Dioxide 32 H (22-30) mmol/L Glucose 106 H (74-99) mg/dL Total Protein 5.2 L (6.3-8.2) g/dL Albumin 2.4 L (3.5-5.0) g/dL Assessment and Plan Assessment: Assessment and Plan Plan: 1. Acute back pain radiating to the right upper quadrant and epigastric region secondary to cholecystitis and pancreatitis. Resolved Likely acalculous cholecystitis from the CT finding ultrasound suggestive of sludge in the neck but is not clear due to bowel gas, fluid has to be administrated cautiously as patient has a ejection fraction 30%. Patient received 1 L of IV fluid in the ER currently off fluids Watch for any shortness of breath or sign of fluid overload. 2 cholecystitis on Unasyn. Blood cultures no growth Likely secondary to gallstones though CT does not suggest any gallstones. Ultrasound concerning for sludge in the neck. Status post lap cholecystectomy on November 22 3. Acute pancreatitis secondary to gallstones. Lipase normalized fluid on hold 4. h/o V. fib/V. tach - Continue amiodarone 200 mg po daily 5. CAD post [place] with cardiac arrest status post PCI back in 2013. Continue metoprolol 25 mg orally twice every day, amlodipine 12.5 mg by mouth daily, lisinopril 5 mg by mouth daily, aspirin 81 mg orally once every day Plavix resumed today 6. Hyperlipidemia. Continue patient on low-cholesterol diet. 7. Hypertension. Continue metoprolol 25 mg orally twice every day, Imuran drawn 12.5 mg by mouth daily, lisinopril 5 mg by mouth daily 8. Post partial thyroidectomy. 9. AMD. Stable at this point in time. 10. History of PUD. Continue Protonix 40 mg orally once every day. 11. Osteoarthritis. Stable. 12. Ischemic cardiomyopathy s/p AICD Stable at this time ejection fraction similar to the previous echo 13. DVT prophylaxis. Lovenox 40 mg subcutaneously every 24 hours. 14. GI prophylaxis. Protonix 40 mg orally once every day. 15 acute hypoxic respiratory failure secondary to acute CHF exacerbation with possible underlying pneumonia CT chest ordered. Continue antibiotics. Pro- calcitonin increased though CT chest didnot suggest any consolidation to suggest pneumonia , b/l bibasilar atelectasis and pleural effusion noted. Continue Lasix 40 mg by mouth twice a day, along with Zaroxolyn 2.5 mg orally daily, monitor the patient's electrolyte as well as magnesium on a daily basis. 16. Medical debility. The patient will need to go for subacute rehabilitation on Wednesday. 17. Constipation. Start the patient on Dulcolax suppository 10 mg 1 if not better abdominal x-ray for further evaluation of an ileus.
[2017-11-28] MEDS ORDERED: NA PHOS,M-B/NA PHOS,DI-BA 133 ML ENEMA RECTAL STA (16:33)
[2017-11-28] MEDS: METOCLOPRAMIDE 5 MG/ML 2 ML VIAL IVP PRN (18:22)
--- NOTE | 2017-11-28 19:34 | XR ---
EXAMINATION TYPE: XR abdomen 2V DATE OF EXAM: 11/28/2017 COMPARISON: 10/04/2011 HISTORY: Nausea TECHNIQUE: Supine and upright views FINDINGS: There is retained fecal material in the right colon. There is 4 mm calcification over lower pole left kidney. There is no sign of free air. There are spondylotic changes in the lumbar spine. T here is blunting of the costophrenic angles. IMPRESSION: There is probably constipation that is new compared to old exam. Possible left renal calc ulus. There is new pleural reaction at the lung bases compared to old exam.
[2017-11-28] MEDS ORDERED: METOLAZONE 2.5 MG TAB PO SCH (20:00)
[2017-11-28] MEDS: ATORVASTATIN 80 MG TAB PO SCH (21:19)
[2017-11-29] MEDS: AMPICILLIN-SULBACTAM 3 GM in SODIUM CHLORIDE 0.9% 100 ML IVPB SCH ×6 (00:21→21:24)
[2017-11-29 07:55] LABS: Albumin 2.4 g/dL (3.5-5.0); Calcium 8.7 mg/dL (8.4-10.2); Potassium 4.1 mmol/L (3.5-5.1); Total Bilirubin 0.7 mg/dL (0.2-1.3); Total Protein 5.3 g/dL (6.3-8.2)
[2017-11-29 08:19] LABS: Basophils % (A) 0 %; Eosinophils # (A) 0.4 k/uL (0-0.7); Eosinophils % (A) 3 %; HCT 37.2 % (39.0-53.0); HGB 12.6 gm/dL (13.0-17.5); Lymphocytes # (A) 1.1 k/uL (1.0-4.8); Lymphocytes % (A) 9 %; MCH 31.4 pg (25.0-35.0); MCHC 33.8 g/dL (31.0-37.0); Mean Platelet Volume 7.6; Monocytes # (A) 0.6 k/uL (0-1.0); Monocytes % (A) 4 %; Neutrophils # (A) 10.6 k/uL (1.3-7.7); Neutrophils % (A) 83 %; Platelet Count 348 k/uL (150-450); RDW 12.7 % (11.5-15.5); WBC 12.8 k/uL (3.8-10.6)
[2017-11-29] MEDS: NYSTATIN 100,000 UNIT/ML SUSP 500,000 UNIT/5 ML CUP PO SCH ×4 (10:07→21:23)
[2017-11-29] MEDS: LIDOCAINE 5% PATCH TOPICAL SCH (10:07)
[2017-11-29] MEDS: METOPROLOL TARTRATE 50 MG TAB PO SCH ×2 (10:08→21:22)
[2017-11-29] MEDS: POLYETHYLENE GLYCOL 3350 17 GM POWD.PACK PO SCH (10:08)
[2017-11-29] MEDS: POTASSIUM CHLORIDE ER 20 MEQ TAB.ER PO SCH (10:08)
[2017-11-29] MEDS: AMIODARONE 200 MG TAB PO SCH (10:09)
[2017-11-29] MEDS: FUROSEMIDE 40 MG TAB PO SCH ×2 (10:09→16:12)
[2017-11-29] MEDS: CLOPIDOGREL 75 MG TAB PO SCH (10:09)
[2017-11-29] MEDS: PANTOPRAZOLE 40 MG TABLET PO SCH (10:09)
[2017-11-29] MEDS: ASPIRIN 81 MG PO SCH (10:09)
[2017-11-29] MEDS: DOCUSATE 100 MG CAP PO SCH ×2 (10:09→21:22)
[2017-11-29] MEDS: LISINOPRIL 10 MG TAB PO SCH ×2 (10:09→21:22)
[2017-11-29] MEDS: FLUTICASONE 50MCG/SPRAY NASAL 16GM EA NOSTRIL SCH (10:09)
[2017-11-29] MEDS: SPIRONOLACTONE 25 MG TAB PO SCH (10:10)
--- NOTE | 2017-11-29 13:31 | P.DS ---
Addendum entered and electronically signed by Robyn Lopez NP-C 12/01/17 12: 17: Today, discharge is still pending awaiting insurance authorization. Patient has been updated and he would prefer to go home. Case management to set up home care for him and patient will be discharged home in stable condition. His new medications will be sent to [facility]. Patient was prescribed [place] and the Opioid Start Talking form was reviewed with the patient, he verbalized understanding and signed form. Addendum entered and electronically signed by Ines Cavanaugh NP-C 11/30/17 12:56: Discharge was held yesterday, patient waiting for insurance auth for [facility] Original Note: Providers Date of admission: 11/16/17 05:42 Attending physician: Lloyd Morales MD Consults: 11/16/17 06:12 Consult Physician Urgent Consulting Provider: Edgar Pulido Consult Reason/Comments: cholecystitis Do you want consulting provider notified?: Already Contacted 11/16/17 08:42 Consult Physician Routine Consulting Provider: Roberto White Consult Reason/Comments: acute pancreatitis, hx cad, ischemic cardiomyopathy Do you want consulting provider notified?: Yes Primary care physician: [facility] Course: This is an 82-year-old male one of Dr. Hassan with a previous medical history significant for CAD post the cardiac arrest with ischemic cardiomyopathy post AICD implantation, left heart catheterization with PCI back in 2013, chronic systolic heart failure with EF 35 %, peptic ulcer disease, hyperlipidemia, hypothyroidism, osteoarthritis. Patient was admitted in February 2016 for dizziness and subsequently his ICD fired first time and it did fire again the second time V. fib V. tach was detected. ICD was interrogated and adjusted from 25-35 J. Last admission in `2016 for hyponatremia. Patient comes in to the ER with significant back pain that started last night radiated to the epigastric area. Patient also endorses nausea but no episode of vomiting. He denies any previous augmentation of severe chest pain. Since the pain did not get better patient decided to come to the ER. On evaluation in the ER patient had a lipase of 10,000-34 and an amylase of 593. LFTs suggested alkaline phosphatase 140 with normal bilirubin and AST and ALT. Patient denies history of alcoholism. Ultrasound abdomen was obtained that suggested cholecystitis. Possible sludge near the neck with wall thickening and pericholecystic fluid was seen. Echocardiogram was obtained which suggested EF of 25-30% with severe global hypokinesia.Vitals obtained this morning suggests tachycardia, blood pressure 205/137, saturating well on room air. Patient on evaluation is nauseous and having multiple bouts of vomiting uncontrolled on Zofran and Reglan. Oral medication could not be an administrated as patient was nauseous. Other pertinent labs include a lactic acid 2.3 which improved to 1. 5 in the afternoon. Troponin 1 is negative. Triglyceride 181 in August 2017. Patient's presentation is concerning for cholecystitis and pancreatitis. CT of the tendon last night suggest distended gallbladder with acute cholecystitis with stranding that about the head and uncinate process of the pancreas concerning for acute pancreatitis. Gastroenterology and surgery on consult. Patient may require cardiac clearance prior to going for surgery. Keep Plavix on hold. Cardiology evaluation pending keep patient nothing by mouth. Normal saline running at 75 mL in due to decreased ejection fraction and concern for volume overload 11/17: Patient denies having any nausea today. He denies any chest pain or shortness of breath. He does have incentive spirometry. Patient was scheduled for gallbladder surgery with Dr. Pulido this week as he needed to be off Plavix which has been postponed until Wednesday. White count has jumped up to 16.1 , creatinine is 1.12, lites within normal limits. Amylase is down to 447 and lipase is significantly improved at 7. AST and ALT slightly elevated. Patient encouraged to increase activity. 11/18: Today, patient is complaining of neck pain which he has had for about 4 months. We are starting baclofen and tramadol. Abdominal pain is a lot better. He denies any shortness of breath at this time but he did have an episode where his pulse ox dropped down to 85% off oxygen. He is currently pulse ox a 91-92% on 2 L nasal cannula. Chest x-ray ordered. Besides the neck pain, patient is also complaining of lower back pain most likely from bed. White count remains elevated at 17.2. Liver function tests are normalized. Lipase is down to 1052. 11/19: Patient's family is at bedside and concerned that he has some slurred speech. No slurred speech noted. Generalized weakness. Thinks he pulled a muscle when he was getting up to the chair. Baclofen was started yesterday which will be discontinued. He states that he is feeling tired. Chest x-ray shows pulmonary edema and pleural fluid consistent with congestive heart failure is much worse than last exam. IV fluids will be completely discontinued and IV Lasix started. The troponin has been ordered which is 0.076 and cardiology notified. Discussed in detail with the patient that he has high risk during surgery and may require intubation and ICU care after surgery. Patient does understand this. Surgery is currently scheduled for Wednesday with Dr. Pulido. 11/20: Patient is resting comfortably in bed without any new complaints today. Patient states that he is feeling better. Surgery is scheduled for Wednesday with Dr. Pulido. White count has improved to 10.4. Hemoglobin has been stable at 12.1. Lipase continues to decline. Repeat CBC and comp ordered. Patient continues to tolerate a full liquid diet. Patient denies any nausea or vomiting , abdominal pain, or diarrhea. Patient denies any chest discomfort or difficulty breathing. 11/21: Patient complains of abdominal discomfort. Denies any nausea or vomiting or diarrhea at this time. Patient complains of not having a bowel movement since being in the hospital, however, he is not had a large amount of food intake. Patient is requesting to get up to shower, encouraged patient to shower prior to surgery that is scheduled for Wednesday with Dr. Pulido. WBC 12.6 hemoglobin 12.6, lipase was elevated this morning at 837. 11/22: Patient is going for surgery. 11/23: Patient underwent laparoscopic cholecystectomy yesterday. He has been nothing by mouth but will start clear liquids for lunch today. He is anxious to eat. Abdominal pain is controlled. Yesterday afternoon, he had a drop in his pulse ox 87% and required Ventimask. His blood pressure was elevated for which an extra dose of lisinopril was given. Dilaudid was resumed for pain control. Temperature max 101.1. White count is at 15.8. He is continued on Unasyn. Lipase has normalized and liver function tests are within normal limits. Cardiology has increased Lasix to 20 mg 3 times daily. Repeat EKG was ordered and telemetry added. Pulse ox is 91% on 4 L. Patient does not appear to be dyspneic. He states he has not had a bowel movement and concern for constipation for which Senokot ordered. He states he has been voiding without any problems. Discussed discharge plan patient is planning to return home but we will ask for PT to reevaluate today for possible subacute rehab. Plan to increase activity and possible discharge by tomorrow depending on progress. 11/24: Patient was sitting up in a chair for most the morning and has just now returned to bed. He remains with EDVIN drain in place with serous drainage. White count is decreased to 12. Potassium will be replaced. Patient continues to have constipation with no results from Senokot yesterday. Colace will be scheduled regularly. Patient is currently on O2 at 4 L and Lasix increased to 40 mg twice daily. Patient states he is urinating okay. Lidocaine patch added for chronic neck pain. He has been afebrile 11/25. Patient sitting in bed oriented 3. Is able to provide history. Neck pain is controlled after lidocaine patches. Applied. Continues to be on 4 L of oxygen despite increase of Lasix to 40 mg twice daily. Pro-calcitonin ordered. Since there is no improvement in hypoxia CT chest ordered to evaluate further. Plavix initiated today. Patient still has a EDVIN drain with drainage of 50 mL 11/26 patient leg in bed comfortable. Denies any shortness of breath or cough. CT chest bilateral small pleural effusion with compressive atelectasis with partial visualization of the surgical drape with associated. Told be a global cardiomegaly with moderate to severe coronary calcification and emphysema seen. Lasix reduced to 40 mg by mouth twice a day. Patient's hypoxic at 4 L at 90- 91%*encouraged incentive spirometry. Pro-calcitonin levels are high but no consolidation seen on chest CT to suggest pneumonia, could be related to recent surgery and stress associated. We will repeat in 48 hours PTOT consult in possible discharge to subacute rehab on Wednesday. 11/27: Patient went to the bathroom earlier today trying to have a bowel movement, patient continues to have some shortness of breath, he was instructed to use incentive spirometer continue oxygen support continue with the current medication continue physical therapy evaluation for possible ECF on Wednesday. 11/28: Patient is complaining of increased bloating and his stomach and he has not had a bowel movement for the past week or so he continues to pass some flatus, he has poor appetite and he has decreased bowel sounds, we will try the patient on Dulcolax suppository mg 1 and if not better will obtain x-rays of the abdomen. 11/29: Patient evaluated today. Abdominal x-ray shows constipation, possible left renal calculus, new pleural reaction at the lung bases. Last bowel movement was 11/28. Patient continues to have generalized weakness, will be transferred to [facility] today for rehab. Discharge diagnoses 1. Acute back pain secondary to cholecystitis and pancreatitis. 2 cholecystitis 3. Acute pancreatitis secondary to gallstones. 4. h/o V. fib/V. tach 5. CAD post SD with cardiac arrest status post PCI back in 2013. 6. Hyperlipidemia. 7. Hypertension. 8. Post partial thyroidectomy. 9. AMD. 10. History of PUD. 11. Osteoarthritis. 12. Ischemic cardiomyopathy s/p AICD 13 acute hypoxic respiratory failure secondary to acute CHF exacerbation with possible underlying pneumonia 14. Medical debility. The patient will need to go for subacute rehabilitation on Wednesday. 15. Constipation. Start the patient on Dulcolax suppository 10 mg 1 if not better abdominal x-ray for further evaluation of an ileus. The above impression and plan of care have been discussed and directed by signing physician. Ines Cavanaugh nurse practitioner acting as scribe for signing physician. Patient Condition at Discharge: Good Plan - Discharge Summary Discharge Rx Participant: No New Discharge Prescriptions: New Amiodarone [Cordarone] 200 mg PO DAILY tab Amiodarone [Cordarone] 200 mg PO DAILY tab Docusate [Colace] 100 mg PO BID cap Furosemide [Lasix] 40 mg PO BID@0900,1600 tab HYDROcodone/APAP 5-325MG [[place] 5-325] 1 each PO Q4HR PRN #18 tab PRN Reason: Moderate Pain Lisinopril [Zestril] 10 mg PO BID tab Magnesium Hydroxide [Milk of Magnesia Concentrate] 2,400 mg PO ONCE PRN ml PRN Reason: Constipation Metoprolol Tartrate [Lopressor] 50 mg PO BID tab Nystatin 100,000 Unit/ml Susp [Mycostatin Oral Susp] 500,000 unit PO QID cup Pantoprazole [Protonix] 40 mg PO AC-BRKFST tablet.dr Polyethylene Glycol 3350 [Miralax] 17 gm PO DAILY powd.pack Potassium Chloride 8 meq PO DAILY #30 tablet.er Continue Atorvastatin [Lipitor] 80 mg PO HS #30 tab Omeprazole [PriLOSEC] 20 mg PO AC-BRKFST #30 capsule. Nitroglycerin Sl Tabs [Nitrostat] 0.4 mg SUBLINGUAL Q5M PRN PRN Reason: Chest Pain Clopidogrel [Plavix] 75 mg PO DAILY Spironolactone [Aldactone] 12.5 mg PO DAILY Fluticasone Nas[place] [Flonase Nasal [place]] 1 spray EA NOSTRIL DAILY Cetirizine HCl [Zyrtec] 10 mg PO DAILY Clopidogrel Bisulfate [Plavix] 75 mg PO DAILY Aspirin [Adult Low Dose Aspirin EC] 81 mg PO DAILY Acetaminophen Tab [Tylenol] 325 mg PO Q6H Vit A/Vit C/Vit E/Zinc/Copper [ICAPS SOFTGEL] 1 cap PO DAILY Discontinued Metoprolol Tartrate [Lopressor] 25 mg PO BID Lisinopril [Zestril] 5 mg PO BID Amiodarone [Cordarone] 200 mg PO BID Discharge Medication List Atorvastatin [Lipitor] 80 mg PO HS #30 tab 11/20/13 [Rx] Omeprazole [PriLOSEC] 20 mg PO AC-BRKFST #30 capsule. 11/20/13 [Rx] Nitroglycerin Sl Tabs [Nitrostat] 0.4 mg SUBLINGUAL Q5M PRN 02/12/14 [History] Clopidogrel [Plavix] 75 mg PO DAILY 03/29/14 [History] Cetirizine HCl [Zyrtec] 10 mg PO DAILY 12/03/16 [History] Fluticasone Nas[place] [Flonase Nasal [place]] 1 spray EA NOSTRIL DAILY 12/03/16 [History] Spironolactone [Aldactone] 12.5 mg PO DAILY 12/03/16 [History] Acetaminophen Tab [Tylenol] 325 mg PO Q6H 11/16/17 [History] Aspirin [Adult Low Dose Aspirin EC] 81 mg PO DAILY 11/16/17 [History] Clopidogrel Bisulfate [Plavix] 75 mg PO DAILY 11/16/17 [History] Vit A/Vit C/Vit E/Zinc/Copper [ICAPS SOFTGEL] 1 cap PO DAILY 11/16/17 [History] Amiodarone [Cordarone] 200 mg PO DAILY tab 11/18/17 [Rx] Amiodarone [Cordarone] 200 mg PO DAILY tab 11/29/17 [Rx] Docusate [Colace] 100 mg PO BID cap 11/29/17 [Rx] Furosemide [Lasix] 40 mg PO BID@0900,1600 tab 11/29/17 [Rx] HYDROcodone/APAP 5-325MG [[place] 5-325] 1 each PO Q4HR PRN #18 tab 11/29/17 [Rx] Lisinopril [Zestril] 10 mg PO BID tab 11/29/17 [Rx] Magnesium Hydroxide [Milk of Magnesia Concentrate] 2,400 mg PO ONCE PRN ml [Rx] Metoprolol Tartrate [Lopressor] 50 mg PO BID tab 11/29/17 [Rx] Nystatin 100,000 Unit/ml Susp [Mycostatin Oral Susp] 500,000 unit PO QID cup [Rx] Pantoprazole [Protonix] 40 mg PO AC-BRKFST tablet.dr 11/29/17 [Rx] Polyethylene Glycol 3350 [Miralax] 17 gm PO DAILY powd.pack 11/29/17 [Rx] Potassium Chloride 8 meq PO DAILY #30 tablet.er 11/29/17 [Rx] Follow up Appointment(s)/Referral(s): Benji Kearns MD [STAFF PHYSICIAN] - 2 Weeks David Hassan MD [Primary Care Provider] - 1-2 days Discharge Disposition: TRANSFER TO SNF/ECF
[2017-11-29] MEDS: ATORVASTATIN 80 MG TAB PO SCH (21:22)
[2017-11-30] MEDS: AMPICILLIN-SULBACTAM 3 GM in SODIUM CHLORIDE 0.9% 100 ML IVPB SCH ×3 (03:13→17:51)
[2017-11-30] MEDS: PANTOPRAZOLE 40 MG TABLET PO SCH (09:30)
[2017-11-30] MEDS: ASPIRIN 81 MG PO SCH (09:30)
[2017-11-30] MEDS: DOCUSATE 100 MG CAP PO SCH ×2 (09:30→21:17)
[2017-11-30] MEDS: AMIODARONE 200 MG TAB PO SCH (09:30)
[2017-11-30] MEDS: CLOPIDOGREL 75 MG TAB PO SCH (09:30)
[2017-11-30] MEDS: FUROSEMIDE 40 MG TAB PO SCH ×2 (09:31→17:51)
[2017-11-30] MEDS: NYSTATIN 100,000 UNIT/ML SUSP 500,000 UNIT/5 ML CUP PO SCH ×4 (09:31→21:17)
[2017-11-30] MEDS: SPIRONOLACTONE 25 MG TAB PO SCH (09:31)
[2017-11-30] MEDS: POTASSIUM CHLORIDE ER 20 MEQ TAB.ER PO SCH (09:31)
[2017-11-30] MEDS: LIDOCAINE 5% PATCH TOPICAL SCH (09:31)
[2017-11-30] MEDS: POLYETHYLENE GLYCOL 3350 17 GM POWD.PACK PO SCH (09:31)
[2017-11-30] MEDS: LISINOPRIL 10 MG TAB PO SCH ×2 (09:31→21:17)
[2017-11-30] MEDS: METOPROLOL TARTRATE 50 MG TAB PO SCH ×2 (09:31→21:17)
[2017-11-30] MEDS: FLUTICASONE 50MCG/SPRAY NASAL 16GM EA NOSTRIL SCH (09:31)
[2017-11-30] MEDS: ATORVASTATIN 80 MG TAB PO SCH (21:17)
[2017-11-30] MEDS: traMADol 50 MG TAB PO PRN (23:32)
[2017-12-01] MEDS: AMPICILLIN-SULBACTAM 3 GM in SODIUM CHLORIDE 0.9% 100 ML IVPB SCH ×5 (00:28→23:44)
[2017-12-01] MEDS: PANTOPRAZOLE 40 MG TABLET PO SCH (09:02)
[2017-12-01] MEDS: SPIRONOLACTONE 25 MG TAB PO SCH (09:04)
[2017-12-01] MEDS: POLYETHYLENE GLYCOL 3350 17 GM POWD.PACK PO SCH (09:05)
[2017-12-01] MEDS: NYSTATIN 100,000 UNIT/ML SUSP 500,000 UNIT/5 ML CUP PO SCH ×4 (09:05→21:23)
[2017-12-01] MEDS: POTASSIUM CHLORIDE ER 20 MEQ TAB.ER PO SCH (09:05)
[2017-12-01] MEDS: METOPROLOL TARTRATE 50 MG TAB PO SCH ×2 (09:14→21:23)
[2017-12-01] MEDS: ASPIRIN 81 MG PO SCH (09:14)
[2017-12-01] MEDS: AMIODARONE 200 MG TAB PO SCH (09:14)
[2017-12-01] MEDS: LISINOPRIL 10 MG TAB PO SCH ×2 (09:14→21:23)
[2017-12-01] MEDS: LIDOCAINE 5% PATCH TOPICAL SCH (09:15)
[2017-12-01] MEDS: CLOPIDOGREL 75 MG TAB PO SCH (09:15)
[2017-12-01] MEDS: FLUTICASONE 50MCG/SPRAY NASAL 16GM EA NOSTRIL SCH (09:15)
[2017-12-01] MEDS: DOCUSATE 100 MG CAP PO SCH ×2 (09:15→21:24)
[2017-12-01] MEDS: FUROSEMIDE 40 MG TAB PO SCH ×2 (09:15→17:26)
[2017-12-01] MEDS: ATORVASTATIN 80 MG TAB PO SCH (21:23)
[2017-12-02] MEDS: AMPICILLIN-SULBACTAM 3 GM in SODIUM CHLORIDE 0.9% 100 ML IVPB SCH ×3 (05:47→15:33)
[2017-12-02] MEDS: DOCUSATE 100 MG CAP PO SCH ×2 (08:55→20:23)
[2017-12-02] MEDS: ASPIRIN 81 MG PO SCH (08:55)
[2017-12-02] MEDS: POTASSIUM CHLORIDE ER 20 MEQ TAB.ER PO SCH (08:55)
[2017-12-02] MEDS: AMIODARONE 200 MG TAB PO SCH (08:55)
[2017-12-02] MEDS: LISINOPRIL 10 MG TAB PO SCH ×2 (08:55→20:23)
[2017-12-02] MEDS: FUROSEMIDE 40 MG TAB PO SCH ×2 (08:55→16:56)
[2017-12-02] MEDS: CLOPIDOGREL 75 MG TAB PO SCH (08:55)
[2017-12-02] MEDS: PANTOPRAZOLE 40 MG TABLET PO SCH (08:55)
[2017-12-02] MEDS: METOPROLOL TARTRATE 50 MG TAB PO SCH ×2 (08:56→20:23)
[2017-12-02] MEDS: POLYETHYLENE GLYCOL 3350 17 GM POWD.PACK PO SCH (08:57)
[2017-12-02] MEDS: FLUTICASONE 50MCG/SPRAY NASAL 16GM EA NOSTRIL SCH (08:57)
[2017-12-02] MEDS: SPIRONOLACTONE 25 MG TAB PO SCH (08:57)
[2017-12-02] MEDS: LIDOCAINE 5% PATCH TOPICAL SCH (08:57)
[2017-12-02] MEDS: NYSTATIN 100,000 UNIT/ML SUSP 500,000 UNIT/5 ML CUP PO SCH ×4 (08:58→21:35)
--- NOTE | 2017-12-02 13:21 | P.PN ---
Subjective Progress Note Date: 12/02/17 This is an 82-year-old male one of Dr. Hassan with a previous medical history significant for CAD post the cardiac arrest with ischemic cardiomyopathy post AICD implantation, left heart catheterization with PCI back in 2013, chronic systolic heart failure with EF 35 %, peptic ulcer disease, hyperlipidemia, hypothyroidism, osteoarthritis. Patient was admitted in February 2016 for dizziness and subsequently his ICD fired first time and it did fire again the second time V. fib V. tach was detected. ICD was interrogated and adjusted from 25-35 J. Last admission in `2016 for hyponatremia. Patient comes in to the ER with significant back pain that started last night radiated to the epigastric area. Patient also endorses nausea but no episode of vomiting. He denies any previous augmentation of severe chest pain. Since the pain did not get better patient decided to come to the ER. On evaluation in the ER patient had a lipase of 10,000-34 and an amylase of 593. LFTs suggested alkaline phosphatase 140 with normal bilirubin and AST and ALT. Patient denies history of alcoholism. Ultrasound abdomen was obtained that suggested cholecystitis. Possible sludge near the neck with wall thickening and pericholecystic fluid was seen. Echocardiogram was obtained which suggested EF of 25-30% with severe global hypokinesia.Vitals obtained this morning suggests tachycardia, blood pressure 205/137, saturating well on room air. Patient on evaluation is nauseous and having multiple bouts of vomiting uncontrolled on Zofran and Reglan. Oral medication could not be an administrated as patient was nauseous. Other pertinent labs include a lactic acid 2.3 which improved to 1. 5 in the afternoon. Troponin 1 is negative. Triglyceride 181 in August 2017. Patient's presentation is concerning for cholecystitis and pancreatitis. CT of the tendon last night suggest distended gallbladder with acute cholecystitis with stranding that about the head and uncinate process of the pancreas concerning for acute pancreatitis. Gastroenterology and surgery on consult. Patient may require cardiac clearance prior to going for surgery. Keep Plavix on hold. Cardiology evaluation pending keep patient nothing by mouth. Normal saline running at 75 mL in due to decreased ejection fraction and concern for volume overload 11/17: Patient denies having any nausea today. He denies any chest pain or shortness of breath. He does have incentive spirometry. Patient was scheduled for gallbladder surgery with Dr. Pulido this week as he needed to be off Plavix which has been postponed until Wednesday. White count has jumped up to 16.1 , creatinine is 1.12, lites within normal limits. Amylase is down to 447 and lipase is significantly improved at 2076. AST and ALT slightly elevated. Patient encouraged to increase activity. 11/18: Today, patient is complaining of neck pain which he has had for about 4 months. We are starting baclofen and tramadol. Abdominal pain is a lot better. He denies any shortness of breath at this time but he did have an episode where his pulse ox dropped down to 85% off oxygen. He is currently pulse ox a 91-92% on 2 L nasal cannula. Chest x-ray ordered. Besides the neck pain, patient is also complaining of lower back pain most likely from bed. White count remains elevated at 17.2. Liver function tests are normalized. Lipase is down to 1052. 11/19: Patient's family is at bedside and concerned that he has some slurred speech. No slurred speech noted. Generalized weakness. Thinks he pulled a muscle when he was getting up to the chair. Baclofen was started yesterday which will be discontinued. He states that he is feeling tired. Chest x-ray shows pulmonary edema and pleural fluid consistent with congestive heart failure is much worse than last exam. IV fluids will be completely discontinued and IV Lasix started. The troponin has been ordered which is 0.076 and cardiology notified. Discussed in detail with the patient that he has high risk during surgery and may require intubation and ICU care after surgery. Patient does understand this. Surgery is currently scheduled for Wednesday with Dr. Pulido. 11/20: Patient is resting comfortably in bed without any new complaints today. Patient states that he is feeling better. Surgery is scheduled for Wednesday with Dr. Pulido. White count has improved to 10.4. Hemoglobin has been stable at 12.1. Lipase continues to decline. Repeat CBC and comp ordered. Patient continues to tolerate a full liquid diet. Patient denies any nausea or vomiting , abdominal pain, or diarrhea. Patient denies any chest discomfort or difficulty breathing. 11/21: Patient complains of abdominal discomfort. Denies any nausea or vomiting or diarrhea at this time. Patient complains of not having a bowel movement since being in the hospital, however, he is not had a large amount of food intake. Patient is requesting to get up to shower, encouraged patient to shower prior to surgery that is scheduled for Wednesday with Dr. Pulido. WBC 12.6 hemoglobin 12.6, lipase was elevated this morning at 837. 11/22: Patient is going for surgery. 11/23: Patient underwent laparoscopic cholecystectomy yesterday. He has been nothing by mouth but will start clear liquids for lunch today. He is anxious to eat. Abdominal pain is controlled. Yesterday afternoon, he had a drop in his pulse ox 87% and required Ventimask. His blood pressure was elevated for which an extra dose of lisinopril was given. Dilaudid was resumed for pain control. Temperature max 101.1. White count is at 15.8. He is continued on Unasyn. Lipase has normalized and liver function tests are within normal limits. Cardiology has increased Lasix to 20 mg 3 times daily. Repeat EKG was ordered and telemetry added. Pulse ox is 91% on 4 L. Patient does not appear to be dyspneic. He states he has not had a bowel movement and concern for constipation for which Senokot ordered. He states he has been voiding without any problems. Discussed discharge plan patient is planning to return home but we will ask for PT to reevaluate today for possible subacute rehab. Plan to increase activity and possible discharge by tomorrow depending on progress. 11/24: Patient was sitting up in a chair for most the morning and has just now returned to bed. He remains with EDVIN drain in place with serous drainage. White count is decreased to 12. Potassium will be replaced. Patient continues to have constipation with no results from Senokot yesterday. Colace will be scheduled regularly. Patient is currently on O2 at 4 L and Lasix increased to 40 mg twice daily. Patient states he is urinating okay. Lidocaine patch added for chronic neck pain. He has been afebrile 11/25. Patient sitting in bed oriented 3. Is able to provide history. Neck pain is controlled after lidocaine patches. Applied. Continues to be on 4 L of oxygen despite increase of Lasix to 40 mg twice daily. Pro-calcitonin ordered. Since there is no improvement in hypoxia CT chest ordered to evaluate further. Plavix initiated today. Patient still has a EDVIN drain with drainage of 50 mL 11/26 patient leg in bed comfortable. Denies any shortness of breath or cough. CT chest bilateral small pleural effusion with compressive atelectasis with partial visualization of the surgical drape with associated. Told be a global cardiomegaly with moderate to severe coronary calcification and emphysema seen. Lasix reduced to 40 mg by mouth twice a day. Patient's hypoxic at 4 L at 90- 91%*encouraged incentive spirometry. Pro-calcitonin levels are high but no consolidation seen on chest CT to suggest pneumonia, could be related to recent surgery and stress associated. We will repeat in 48 hours PTOT consult in possible discharge to subacute rehab on Wednesday. 11/27: Patient went to the bathroom earlier today trying to have a bowel movement, patient continues to have some shortness of breath, he was instructed to use incentive spirometer continue oxygen support continue with the current medication continue physical therapy evaluation for possible ECF on Wednesday. 11/28: Patient is complaining of increased bloating and his stomach and he has not had a bowel movement for the past week or so he continues to pass some flatus, he has poor appetite and he has decreased bowel sounds, we will try the patient on Dulcolax suppository 10 mg 1 and if not better will obtain x-rays of the abdomen. 11/29: Patient evaluated today. Abdominal x-ray shows constipation, possible left renal calculus, new pleural reaction at the lung bases. Last bowel movement was 11/28. Patient continues to have generalized weakness, will be transferred to [facility] today for rehab. 12/01: Today, discharge is still pending awaiting insurance authorization. Patient has been updated and he would prefer to go home. Case management to set up home care for him and patient will be discharged home in stable condition. His new medications will be sent to my her pharmacy. Patient was prescribed [place] and the Opioid Start Talking form was reviewed with the patient , he verbalized understanding and signed form. 12/02: Patient was prepared for discharge home but at the time he was signing papers, family convinced him to go to rehab instead. [facility] was notified to resume process for insurance authorization. At this time, we are awaiting that authorization. Patient is frustrated with the process but denies any new complaints. He is eating adequately. No chest pain or shortness of breath. He is urinating adequately. Review of systems: Constitutional: no fever, no chills, no night sweats. EENT: No headache. No blurred vision or double vision, no loss of vision. No nasal drainage or congestion. No epistaxis. No sore throat. Lungs: No shortness of breath, cough, no sputum production. No wheezing. Cardiovascular: No chest pain, no lower extremity edema. No palpitations. No paroxysmal nocturnal dyspnea. No orthopnea. No lightheadedness or dizziness. No syncopal episodes. Abdominal: abdominal pain controlled. No nausea, vomiting. No diarrhea. + constipation. No bloody or tarry stools. No loss of appetite. Genitourinary: No dysuria, increased frequency, urgency. No urinary retention. Musculoskeletal: No myalgias. No muscle weakness, no gait dysfunction, no frequent falls. + neck pain. Integumentary: No rash or pruritus. No unusual bruising. No change in hair or nails. Psychiatric: No depression. No anxiety. No mood swings. Objective - Vital Signs Vital signs: Vital Signs Temp 97.5 F L 12/02/17 05:00 Pulse 67 12/02/17 05:00 Resp 18 12/02/17 05:00 BP 114/70 12/02/17 05:00 Pulse Ox 97 12/02/17 05:00 Intake & Output 12/01/17 12/02/17 12/02/17 18:59 06:59 18:59 Other: Voiding Method Urinal Urinal Diaper Diaper # Voids 4 1 # Bowel Movements 1 - Exam General appearance: average body habitus, no distress, obese - EENT Eyes: PERRLA, no photophobia, dentition normal ENT: hard of hearing Ears: bilateral: normal - Neck Neck: no lymphadenopathy, normal ROM, no rigidity, no stridor Carotids: bilateral: upstroke normal Thyroid: bilateral: normal size - Respiratory Respiratory: bilateral: CTA, negative: diminished, dullness, rales, rhonchi, wheezing - Cardiovascular Rhythm: regular Heart sounds: normal: S1, S2 Abnormal Heart Sounds: systolic murmur ankle Peripheral Edema: absent: None dorsalis pedis Peripheral Pulses: bilateral: Normal - Gastrointestinal General gastrointestinal: normal bowel sounds, soft, no tenderness. Surgical dressing sites are dry. - Integumentary Integumentary: no cellulitis, no cyanotic, no decreased turgor, no jaundiced - Neurologic Neurologic: CNII-XII intact - Musculoskeletal Musculoskeletal: generalized weakness - Psychiatric Psychiatric: A&O x's 3, appropriate affect - Labs CBC & Chem 7: 11/29/17 06:55 11/29/17 06:55 Assessment and Plan Plan: 1. Acute back pain radiating to the right upper quadrant and epigastric region secondary to cholecystitis and pancreatitis. Status post cholecystectomy 2 cholecystitis with ascending cholangitis. Patient on Unasyn. Status post laparoscopic cholecystectomy. 3. Acute pancreatitis secondary to gallstones. 4. h/o V. fib/V. tach and ischemic cardiomyopathy status post AICD with acute on chronic systolic heart failure. Until oral Lasix increased to 40 mg IV twice daily. IV fluids discontinued. Continue amiodarone 200 mg po daily 5. CAD post [place] with cardiac arrest status post PCI back in 2013. Continue metoprolol 50 mg orally twice every day, lisinopril 10 mg twice daily, aspirin 81 mg orally once every day. Plavix remains on hold. Cardiology on consult 6. Hyperlipidemia. Continue Lipitor, patient on low-cholesterol diet. 7. Hypertension. Continue metoprolol 50 mg orally twice every day, Aldactone 12.5 mg by mouth daily, lisinopril 10 mg twice daily. 8. Post partial thyroidectomy. 9. AMD. Stable at this point in time. 10. History of PUD. Continue Protonix 40 mg orally once every day. 11. Osteoarthritis. Stable. 12. Ischemic cardiomyopathy s/p AICD. 13. DVT prophylaxis. Lovenox 40 mg subcutaneously every 24 hours. 14. GI prophylaxis. Protonix 40 mg orally once every day. 15. Degenerative disc disease of the cervical spine. Baclofen continued. Continue tramadol as needed. discharge plan: [facility] Impression and plan of care have been directed as dictated by the signing physician. Robyn Lopez nurse practitioner acting as scribe for signing physician.
[2017-12-02 13:33] LABS: HCT 39.9 % (39.0-53.0); MCH 31.7 pg (25.0-35.0); MCHC 32.4 g/dL (31.0-37.0); MCV 97.8 fL (80.0-100.0); Mean Platelet Volume 7.6; Platelet Count 420 k/uL (150-450); RBC 4.08 m/uL (4.30-5.90); RDW 12.8 % (11.5-15.5); WBC 9.2 k/uL (3.8-10.6)
[2017-12-02 13:52] LABS: Albumin 2.9 g/dL (3.5-5.0); Calcium 9.3 mg/dL (8.4-10.2); Potassium 4.6 mmol/L (3.5-5.1); Total Bilirubin 0.5 mg/dL (0.2-1.3); Total Protein 6.1 g/dL (6.3-8.2)
[2017-12-02] MEDS: ATORVASTATIN 80 MG TAB PO SCH (20:23)
[2017-12-02] MEDS: HYDROcodone/APAP 5-325MG 1 EACH TAB PO PRN (22:33)
[2017-12-03] MEDS: AMPICILLIN-SULBACTAM 3 GM in SODIUM CHLORIDE 0.9% 100 ML IVPB SCH ×3 (00:34→13:24)
[2017-12-03] MEDS: PANTOPRAZOLE 40 MG TABLET PO SCH (08:43)
[2017-12-03] MEDS: POLYETHYLENE GLYCOL 3350 17 GM POWD.PACK PO SCH (08:44)
[2017-12-03] MEDS: CLOPIDOGREL 75 MG TAB PO SCH ×2 (08:44→11:49)
[2017-12-03] MEDS: METOPROLOL TARTRATE 50 MG TAB PO SCH ×3 (08:44→20:55)
[2017-12-03] MEDS: LISINOPRIL 10 MG TAB PO SCH ×3 (08:44→20:55)
[2017-12-03] MEDS: FUROSEMIDE 40 MG TAB PO SCH ×3 (08:44→17:09)
[2017-12-03] MEDS: POTASSIUM CHLORIDE ER 20 MEQ TAB.ER PO SCH ×2 (08:44→11:50)
[2017-12-03] MEDS: AMIODARONE 200 MG TAB PO SCH ×2 (08:44→11:50)
[2017-12-03] MEDS: ASPIRIN 81 MG PO SCH ×2 (08:44→11:50)
[2017-12-03] MEDS: FLUTICASONE 50MCG/SPRAY NASAL 16GM EA NOSTRIL SCH (08:45)
[2017-12-03] MEDS: DOCUSATE 100 MG CAP PO SCH ×3 (08:45→20:55)
[2017-12-03] MEDS: NYSTATIN 100,000 UNIT/ML SUSP 500,000 UNIT/5 ML CUP PO SCH ×4 (08:45→20:54)
[2017-12-03] MEDS: LIDOCAINE 5% PATCH TOPICAL SCH (08:45)
[2017-12-03] MEDS: SPIRONOLACTONE 25 MG TAB PO SCH ×2 (08:46→11:51)
[2017-12-03] MEDS: AMOXIC-POT CLAV 500-125 MG 1 EACH TAB PO SCH ×2 (13:23→20:54)
--- NOTE | 2017-12-03 15:48 | P.DS ---
Providers Date of admission: 11/16/17 05:42 Expected date of discharge: 12/03/17 Attending physician: Lloyd Morales MD Consults: 11/16/17 06:12 Consult Physician Urgent Consulting Provider: Edgar Pulido Consult Reason/Comments: cholecystitis Do you want consulting provider notified?: Already Contacted 11/16/17 08:42 Consult Physician Routine Consulting Provider: Roberto White Consult Reason/Comments: acute pancreatitis, hx cad, ischemic cardiomyopathy Do you want consulting provider notified?: Yes Primary care physician: [facility] Hospital Course: This is an 82-year-old male one of Dr. Hassan with a previous medical history significant for CAD post the cardiac arrest with ischemic cardiomyopathy post AICD implantation, left heart catheterization with PCI back in 2013, chronic systolic heart failure with EF 35 %, peptic ulcer disease, hyperlipidemia, hypothyroidism, osteoarthritis. Patient was admitted in February 2016 for dizziness and subsequently his ICD fired first time and it did fire again the second time V. fib V. tach was detected. ICD was interrogated and adjusted from 25-35 J. Last admission in `2016 for hyponatremia. Patient comes in to the ER with significant back pain that started last night radiated to the epigastric area. Patient also endorses nausea but no episode of vomiting. He denies any previous augmentation of severe chest pain. Since the pain did not get better patient decided to come to the ER. On evaluation in the ER patient had a lipase of 10,000-34 and an amylase of 593. LFTs suggested alkaline phosphatase 140 with normal bilirubin and AST and ALT. Patient denies history of alcoholism. Ultrasound abdomen was obtained that suggested cholecystitis. Possible sludge near the neck with wall thickening and pericholecystic fluid was seen. Echocardiogram was obtained which suggested EF of 25-30% with severe global hypokinesia.Vitals obtained this morning suggests tachycardia, blood pressure 205/137, saturating well on room air. Patient on evaluation is nauseous and having multiple bouts of vomiting uncontrolled on Zofran and Reglan. Oral medication could not be an administrated as patient was nauseous. Other pertinent labs include a lactic acid 2.3 which improved to 1. 5 in the afternoon. Troponin 1 is negative. Triglyceride 181 in August 2017. Patient's presentation is concerning for cholecystitis and pancreatitis. CT of the tendon last night suggest distended gallbladder with acute cholecystitis with stranding that about the head and uncinate process of the pancreas concerning for acute pancreatitis. Gastroenterology and surgery on consult. Patient may require cardiac clearance prior to going for surgery. Keep Plavix on hold. Cardiology evaluation pending keep patient nothing by mouth. Normal saline running at 75 mL in due to decreased ejection fraction and concern for volume overload 11/17: Patient denies having any nausea today. He denies any chest pain or shortness of breath. He does have incentive spirometry. Patient was scheduled for gallbladder surgery with Dr. Pulido this week as he needed to be off Plavix which has been postponed until Wednesday. White count has jumped up to 16.1 , creatinine is 1.12, lites within normal limits. Amylase is down to 447 and lipase is significantly improved at 2076. AST and ALT slightly elevated. Patient encouraged to increase activity. 11/18: Today, patient is complaining of neck pain which he has had for about 4 months. We are starting baclofen and tramadol. Abdominal pain is a lot better. He denies any shortness of breath at this time but he did have an episode where his pulse ox dropped down to 85% off oxygen. He is currently pulse ox a 91-92% on 2 L nasal cannula. Chest x-ray ordered. Besides the neck pain, patient is also complaining of lower back pain most likely from bed. White count remains elevated at 17.2. Liver function tests are normalized. Lipase is down to 1052. 11/19: Patient's family is at bedside and concerned that he has some slurred speech. No slurred speech noted. Generalized weakness. Thinks he pulled a muscle when he was getting up to the chair. Baclofen was started yesterday which will be discontinued. He states that he is feeling tired. Chest x-ray shows pulmonary edema and pleural fluid consistent with congestive heart failure is much worse than last exam. IV fluids will be completely discontinued and IV Lasix started. The troponin has been ordered which is 0.076 and cardiology notified. Discussed in detail with the patient that he has high risk during surgery and may require intubation and ICU care after surgery. Patient does understand this. Surgery is currently scheduled for Wednesday with Dr. Pulido. 11/20: Patient is resting comfortably in bed without any new complaints today. Patient states that he is feeling better. Surgery is scheduled for Wednesday with Dr. Pulido. White count has improved to 10.4. Hemoglobin has been stable at 12.1. Lipase continues to decline. Repeat CBC and comp ordered. Patient continues to tolerate a full liquid diet. Patient denies any nausea or vomiting , abdominal pain, or diarrhea. Patient denies any chest discomfort or difficulty breathing. 11/21: Patient complains of abdominal discomfort. Denies any nausea or vomiting or diarrhea at this time. Patient complains of not having a bowel movement since being in the hospital, however, he is not had a large amount of food intake. Patient is requesting to get up to shower, encouraged patient to shower prior to surgery that is scheduled for Wednesday with Dr. Pulido. WBC 12.6 hemoglobin 12.6, lipase was elevated this morning at 837. 11/22: Patient is going for surgery. 11/23: Patient underwent laparoscopic cholecystectomy yesterday. He has been nothing by mouth but will start clear liquids for lunch today. He is anxious to eat. Abdominal pain is controlled. Yesterday afternoon, he had a drop in his pulse ox 87% and required Ventimask. His blood pressure was elevated for which an extra dose of lisinopril was given. Dilaudid was resumed for pain control. Temperature max 101.1. White count is at 15.8. He is continued on Unasyn. Lipase has normalized and liver function tests are within normal limits. Cardiology has increased Lasix to 20 mg 3 times daily. Repeat EKG was ordered and telemetry added. Pulse ox is 91% on 4 L. Patient does not appear to be dyspneic. He states he has not had a bowel movement and concern for constipation for which Senokot ordered. He states he has been voiding without any problems. Discussed discharge plan patient is planning to return home but we will ask for PT to reevaluate today for possible subacute rehab. Plan to increase activity and possible discharge by tomorrow depending on progress. 11/24: Patient was sitting up in a chair for most the morning and has just now returned to bed. He remains with EDVIN drain in place with serous drainage. White count is decreased to 12. Potassium will be replaced. Patient continues to have constipation with no results from Senokot yesterday. Colace will be scheduled regularly. Patient is currently on O2 at 4 L and Lasix increased to 40 mg twice daily. Patient states he is urinating okay. Lidocaine patch added for chronic neck pain. He has been afebrile 11/25. Patient sitting in bed oriented 3. Is able to provide history. Neck pain is controlled after lidocaine patches. Applied. Continues to be on 4 L of oxygen despite increase of Lasix to 40 mg twice daily. Pro-calcitonin ordered. Since there is no improvement in hypoxia CT chest ordered to evaluate further. Plavix initiated today. Patient still has a EDVIN drain with drainage of 50 mL 11/26 patient leg in bed comfortable. Denies any shortness of breath or cough. CT chest bilateral small pleural effusion with compressive atelectasis with partial visualization of the surgical drape with associated. Told be a global cardiomegaly with moderate to severe coronary calcification and emphysema seen. Lasix reduced to 40 mg by mouth twice a day. Patient's hypoxic at 4 L at 90- 91%*encouraged incentive spirometry. Pro-calcitonin levels are high but no consolidation seen on chest CT to suggest pneumonia, could be related to recent surgery and stress associated. We will repeat in 48 hours PTOT consult in possible discharge to subacute rehab on Wednesday. 11/27: Patient went to the bathroom earlier today trying to have a bowel movement, patient continues to have some shortness of breath, he was instructed to use incentive spirometer continue oxygen support continue with the current medication continue physical therapy evaluation for possible ECF on Wednesday. 11/28: Patient is complaining of increased bloating and his stomach and he has not had a bowel movement for the past week or so he continues to pass some flatus, he has poor appetite and he has decreased bowel sounds, we will try the patient on Dulcolax suppository 10 mg 1 and if not better will obtain x-rays of the abdomen. 11/29: Patient evaluated today. Abdominal x-ray shows constipation, possible left renal calculus, new pleural reaction at the lung bases. Last bowel movement was 11/28. Patient continues to have generalized weakness, will be transferred to [facility] today for rehab. 12/01: Today, discharge is still pending awaiting insurance authorization. Patient has been updated and he would prefer to go home. Case management to set up home care for him and patient will be discharged home in stable condition. His new medications will be sent to my her pharmacy. Patient was prescribed [place] and the Opioid Start Talking form was reviewed with the patient , he verbalized understanding and signed form. 12/02: Patient was prepared for discharge home but at the time he was signing papers, family convinced him to go to rehab instead. [facility] was notified to resume process for insurance authorization. At this time, we are awaiting that authorization. Patient is frustrated with the process but denies any new complaints. He is eating adequately. No chest pain or shortness of breath. He is urinating adequately. 12/04: Patient continued to be hemodynamically stable still feeling weak but able to ambulate with assistance family member at the bedside patient is denying chest pain, shortness breath, nausea, vomiting or abdominal pain. We will continue supportive care and continue physical therapy monitor patient's closely and consider discharging to correction on Wednesday I have communicated with insurance company and did Peer to peer. And patient is accepted to a correction facility and arrangements will be done on Tuesday 12/05: Patient was found to be hypoxic overnight and was placed on 3 L nasal cannula and currently his oxygenation at 97% but after removing the nasal cannula for 1 hour and his oxygenation went down to mid 80s at the time patient is not oxygen dependent at home. Patient is denying chest pain, shortness breath , nausea, vomiting, abdominal pain, dizziness, lightheadedness or blurry vision patient was up to the bathroom this morning and ambulating with assistance.I have discussed with patient and his family at the bedside in the presence of the nursing staff current treatment plan what I would like to order a CTA chest to rule out pulmonary embolism but patient kidney function was found to be slightly elevated as last blood work was done on November 29 I would like to order VQ scan and follow-up on test results consider starting patient on heparin drip shall he be considered intermediate or high risk for pulmonary embolism. Patient and his family understands this can benefit in treatment and agreeable to current treatment plan. Will continue with oxygen therapy at this point and consider breathing treatment and encourage incentive spirometer. We will consider venous Doppler based on VQ scan result. 12/06: Chest x-ray shows no active cardiopulmonary disease. There is cleaning of heart failure and pleural fluid and atelectasis compared to old exam. VQ scan is low probability for pulmonary embolism. General surgery has been asked to re-see patient due to belching and nausea. Discussed case with GI and Thorazine added. Potassium 6.6 today and repeat is 4.8 after Kayexalate. BUN 43 and creatinine 1.97. Patient's been ordered for IV fluids 2.9 normal saline at 75 mL per hour for 1 L. Patient denies any abdominal pain, no headache. Informed today that insurance has denied authorization for subacute rehab. 12/07: Renal ultrasound shows simple right renal cortical cyst. No evidence of solid renal mass or obstruction. Urinary bladder appears normal. BUN 38, creat 1.47, sodium 135, albumin 2.7, lipase 886. Patient's WBC is scheduled for enema today ordered by general surgery. Physical therapy has reevaluated the patient and recommended subacute rehab and insurance authorization has been requested again. Anticipate discharge tomorrow. 12/08: Patient denies any new complaints. No abdominal pain. No nausea/ vomiting. He did well with OT yesterday with recommendations for subacute rehab. Authorization has been obtained from his insurance. Patient will be discharged to [facility] today in stable condition. Discharge diagnoses: 1. Acute cholecystitis and pancreatitis. Status post cholecystectomy 2. Cholecystitis with ascending cholangitis. 3. Acute pancreatitis secondary to gallstones. 4. h/o V. fib/V. tach and ischemic cardiomyopathy status post AICD with acute on chronic systolic heart failure. 5. CAD post [place] with cardiac arrest status post PCI back in 2013. 6. Hyperlipidemia. 7. Hypertension. 8. Post partial thyroidectomy. 9. AMD. Stable 10. History of PUD. 11. Osteoarthritis. Stable. 12. Ischemic cardiomyopathy s/p AICD. 13. Degenerative disc disease of the cervical spine. 14. Acute hypoxic respiratory failure secondary to acute on chronic systolic heart failure with possible underlying pneumonia ruled out on CAT scan Discharge plan: [facility] Impression and plan of care have been directed as dictated by the signing physician. Robyn Lopez nurse practitioner acting as scribe for signing physician. Patient Condition at Discharge: Good Plan - Discharge Summary Discharge Rx Participant: No New Discharge Prescriptions: New Docusate [Colace] 100 mg PO BID cap Magnesium Hydroxide [Milk of Magnesia Concentrate] 2,400 mg PO ONCE PRN ml PRN Reason: Constipation HYDROcodone/APAP 5-325MG [[place] 5-325] 1 tab PO Q4HR PRN 3 Days #18 tab PRN Reason: Pain Amiodarone [Cordarone] 200 mg PO DAILY #30 tab Polyethylene Glycol 3350 [Miralax] 17 gm PO DAILY #30 packet Furosemide [Lasix] 40 mg PO DAILY tab Lidocaine 5% Patch [Lidoderm 5% Patch] 1 patch TOPICAL DAILY patch Lisinopril [Zestril] 10 mg PO DAILY tab Metoprolol Tartrate [Lopressor] 25 mg PO BID tab Continue Atorvastatin [Lipitor] 80 mg PO HS #30 tab Omeprazole [PriLOSEC] 20 mg PO AC-BRKFST #30 capsule. Nitroglycerin Sl Tabs [Nitrostat] 0.4 mg SUBLINGUAL Q5M PRN PRN Reason: Chest Pain Clopidogrel [Plavix] 75 mg PO DAILY Spironolactone [Aldactone] 12.5 mg PO DAILY Fluticasone Nasal Bend [Flonase Nasal Bend] 1 spray EA NOSTRIL DAILY Cetirizine HCl [Zyrtec] 10 mg PO DAILY Aspirin [Adult Low Dose Aspirin EC] 81 mg PO DAILY Acetaminophen Tab [Tylenol] 325 mg PO Q6H Vit A/Vit C/Vit E/Zinc/Copper [ICAPS SOFTGEL] 1 cap PO DAILY Discontinued Metoprolol Tartrate [Lopressor] 25 mg PO BID Lisinopril [Zestril] 5 mg PO BID Amiodarone [Cordarone] 200 mg PO BID Clopidogrel Bisulfate [Plavix] 75 mg PO DAILY Discharge Medication List Atorvastatin [Lipitor] 80 mg PO HS #30 tab 11/20/13 [Rx] Omeprazole [PriLOSEC] 20 mg PO AC-BRKFST #30 capsule. 11/20/13 [Rx] Nitroglycerin Sl Tabs [Nitrostat] 0.4 mg SUBLINGUAL Q5M PRN 02/12/14 [History] Clopidogrel [Plavix] 75 mg PO DAILY 03/29/14 [History] Cetirizine HCl [Zyrtec] 10 mg PO DAILY 12/03/16 [History] Fluticasone Nasal Bend [Flonase Nasal Bend] 1 spray EA NOSTRIL DAILY 12/03/16 [History] Spironolactone [Aldactone] 12.5 mg PO DAILY 12/03/16 [History] Acetaminophen Tab [Tylenol] 325 mg PO Q6H 11/16/17 [History] Aspirin [Adult Low Dose Aspirin EC] 81 mg PO DAILY 11/16/17 [History] Vit A/Vit C/Vit E/Zinc/Copper [ICAPS SOFTGEL] 1 cap PO DAILY 11/16/17 [History] Docusate [Colace] 100 mg PO BID cap 11/29/17 [Rx] Magnesium Hydroxide [Milk of Magnesia Concentrate] 2,400 mg PO ONCE PRN ml [Rx] Amiodarone [Cordarone] 200 mg PO DAILY #30 tab 12/01/17 [Rx] HYDROcodone/APAP 5-325MG [[place] 5-325] 1 tab PO Q4HR PRN 3 Days #18 tab [Rx] Polyethylene Glycol 3350 [Miralax] 17 gm PO DAILY #30 packet 12/01/17 [Rx] Furosemide [Lasix] 40 mg PO DAILY tab 12/08/17 [Rx] Lidocaine 5% Patch [Lidoderm 5% Patch] 1 patch TOPICAL DAILY patch 12/08/17 [Rx ] Lisinopril [Zestril] 10 mg PO DAILY tab 12/08/17 [Rx] Metoprolol Tartrate [Lopressor] 25 mg PO BID tab 12/08/17 [Rx] Follow up Appointment(s)/Referral(s): Benji Kearns MD [STAFF PHYSICIAN] - 12/27/17 8:30 am (This appointment is combined with your original appointment that you had already scheduled to check your pacemaker.) Edgar Pulido MD [STAFF PHYSICIAN] - 1 Week David Hassan MD [Primary Care Provider] - 12/08/17 2:00 pm (One week after discharge from [facility]) Patient Instructions/Handouts: Metoprolol (By mouth), Lisinopril (By mouth), Furosemide (By mouth), Hydrocodone/Acetaminophen (By mouth), Potassium Chloride (By mouth), Nystatin (By mouth), Amoxicillin/Clavulanate Potassium (By mouth), Amiodarone (By mouth), Polyethylene Glycol 3350 (By mouth), Cholecystitis (GEN) , Pancreatitis (DC), Laparoscopic Cholecystectomy (DC), Leukocytosis (DC) Discharge Disposition: TRANSFER TO SNF/ECF
[2017-12-03] MEDS: ATORVASTATIN 80 MG TAB PO SCH (20:55)
[2017-12-04] MEDS: ASPIRIN 81 MG PO SCH (09:21)
[2017-12-04] MEDS: PANTOPRAZOLE 40 MG TABLET PO SCH (09:22)
[2017-12-04] MEDS: AMOXIC-POT CLAV 500-125 MG 1 EACH TAB PO SCH ×2 (09:22→21:29)
[2017-12-04] MEDS: AMIODARONE 200 MG TAB PO SCH (09:22)
[2017-12-04] MEDS: CLOPIDOGREL 75 MG TAB PO SCH (09:22)
[2017-12-04] MEDS: FUROSEMIDE 40 MG TAB PO SCH ×2 (09:23→16:57)
[2017-12-04] MEDS: FLUTICASONE 50MCG/SPRAY NASAL 16GM EA NOSTRIL SCH (09:23)
[2017-12-04] MEDS: DOCUSATE 100 MG CAP PO SCH ×2 (09:23→21:29)
[2017-12-04] MEDS: LIDOCAINE 5% PATCH TOPICAL SCH (09:23)
[2017-12-04] MEDS: NYSTATIN 100,000 UNIT/ML SUSP 500,000 UNIT/5 ML CUP PO SCH ×4 (09:24→21:30)
[2017-12-04] MEDS: LISINOPRIL 10 MG TAB PO SCH ×2 (09:24→21:29)
[2017-12-04] MEDS: METOPROLOL TARTRATE 50 MG TAB PO SCH ×2 (09:24→21:29)
[2017-12-04] MEDS: POLYETHYLENE GLYCOL 3350 17 GM POWD.PACK PO SCH (09:25)
[2017-12-04] MEDS: POTASSIUM CHLORIDE ER 20 MEQ TAB.ER PO SCH (09:25)
[2017-12-04] MEDS: SPIRONOLACTONE 25 MG TAB PO SCH (09:25)
--- NOTE | 2017-12-04 17:58 | P.PN ---
Subjective Progress Note Date: 12/04/17 Principal diagnosis: Ascending cholangitis Patient continued to be hemodynamically stable still feeling weak but able to ambulate with assistance family member at the bedside patient is denying chest pain, shortness breath, nausea, vomiting or abdominal pain Objective - Vital Signs Vital signs: Vital Signs Temp 97.6 F 12/04/17 12:41 Pulse 58 L 12/04/17 16:56 Resp 20 12/04/17 12:41 BP 116/66 12/04/17 16:56 Pulse Ox 96 12/04/17 12:41 Intake & Output 12/03/17 12/04/17 12/04/17 18:59 06:59 18:59 Intake Total 750 590 Balance 750 590 Intake: Oral 750 590 Other: Voiding Method Urinal Urinal Urinal Diaper # Voids 3 2 # Bowel Movements 1 - Exam Constitutional: Well developed, well nourished, no acute distress, non-toxic appearance Eyes: PERRL, conjunctiva normal HENT: Atraumatic, external ears normal, nose normal, oropharynx moist, no pharyngeal exudates. Neck- normal range of motion, no tenderness, supple Respiratory: No respiratory distress, normal breath sounds, no rales, no wheezing Cardiovascular: Normal rate, normal rhythm, no murmurs, no gallops, no rubs GI: Soft, nondistended, normal bowel sounds, nontender, no organomegaly, no mass, no rebound, no guarding : No costovertebral angle tenderness Musculoskeletal: No edema, no tenderness, no deformities. Back- no tenderness Integument: Well hydrated, no rash Lymphatic: No lymphadenopathy noted Neurologic: Alert & oriented x 3, CN 2-12 normal, normal motor function, normal sensory function, no focal deficits noted Psychiatric: Speech and behavior appropriate - Labs CBC & Chem 7: 12/02/17 13:20 12/02/17 13:20 Assessment and Plan Assessment: 1. Ascending cholangitis. 2. Acute cholecystitis status post cholecystectomy. 3. debility and deconditioning. 4. Radiculopathy. 5. Coronary artery disease. 6. Anemia of chronic disease. 7. Hypertension. 8. Hyperlipidemia We will continue supportive care and continue physical therapy monitor patient' s closely and consider discharging to [facility] on Wednesday I have communicated with insurance company and did Peer to peer. And patient is accepted to a [facility] facility and arrangements will be done on Wednesday
[2017-12-04] MEDS: ATORVASTATIN 80 MG TAB PO SCH (21:29)
[2017-12-05] MEDS: ASPIRIN 81 MG PO SCH (08:12)
[2017-12-05] MEDS: AMOXIC-POT CLAV 500-125 MG 1 EACH TAB PO SCH ×2 (08:12→21:36)
[2017-12-05] MEDS: CLOPIDOGREL 75 MG TAB PO SCH (08:12)
[2017-12-05] MEDS: AMIODARONE 200 MG TAB PO SCH (08:12)
[2017-12-05] MEDS: PANTOPRAZOLE 40 MG TABLET PO SCH (08:12)
[2017-12-05] MEDS: FLUTICASONE 50MCG/SPRAY NASAL 16GM EA NOSTRIL SCH (08:13)
[2017-12-05] MEDS: FUROSEMIDE 40 MG TAB PO SCH ×2 (08:13→16:24)
[2017-12-05] MEDS: LIDOCAINE 5% PATCH TOPICAL SCH (08:13)
[2017-12-05] MEDS: LISINOPRIL 10 MG TAB PO SCH ×2 (08:13→21:31)
[2017-12-05] MEDS: DOCUSATE 100 MG CAP PO SCH ×2 (08:13→21:36)
[2017-12-05] MEDS: NYSTATIN 100,000 UNIT/ML SUSP 500,000 UNIT/5 ML CUP PO SCH ×4 (08:14→21:36)
[2017-12-05] MEDS: POLYETHYLENE GLYCOL 3350 17 GM POWD.PACK PO SCH (08:14)
[2017-12-05] MEDS: POTASSIUM CHLORIDE ER 20 MEQ TAB.ER PO SCH (08:14)
[2017-12-05] MEDS: METOPROLOL TARTRATE 50 MG TAB PO SCH ×2 (08:14→21:31)
[2017-12-05] MEDS: SPIRONOLACTONE 25 MG TAB PO SCH (08:14)
[2017-12-05] MEDS ORDERED: ONDANSETRON 4 MG TAB PO PRN (11:00)
[2017-12-05 16:00] LABS: Calcium 9.3 mg/dL (8.4-10.2); Potassium 5.5 mmol/L (3.5-5.1)
--- NOTE | 2017-12-05 17:35 | P.PN ---
Subjective Progress Note Date: 12/05/17 Principal diagnosis: Ascending cholangitis Patient was found to be hypoxic overnight and was placed on 3 L nasal cannula and currently his oxygenation at 97% but after removing the nasal cannula for 1 hour and his oxygenation went down to mid 80s at the time patient is not oxygen dependent at home. Patient is denying chest pain, shortness breath, nausea, vomiting, abdominal pain, dizziness, lightheadedness or blurry vision patient was up to the bathroom this morning and ambulating with assistance Objective - Vital Signs Vital signs: Vital Signs Temp 97.9 F 12/05/17 11:40 Pulse 55 L 12/05/17 16:21 Resp 16 12/05/17 11:40 BP 94/56 12/05/17 16:21 Pulse Ox 91 L 12/05/17 11:45 Intake & Output 12/04/17 12/05/17 12/05/17 18:59 06:59 18:59 Other: Voiding Method Urinal Toilet Toilet Urinal # Voids 2 1 # Bowel Movements 1 1 1 - Exam Lungs : Diminished with poor efforts Heart: Normal S1 and S2 Abdomen: Soft, no tenderness, positive bowel sounds in all 4 quadrants Skin: No new rash Psych: Alert and oriented at baseline mental status - Labs CBC & Chem 7: 12/02/17 13:20 12/05/17 15:37 Labs: Abnormal Lab Results - Last 24 Hours (Table) 12/05/17 Range/Units 15:37 Sodium 133 L (137-145) mmol/L Potassium 5.5 H (3.5-5.1) mmol/L BUN 41 H (9-20) mg/dL Creatinine 1.79 H (0.66-1.25) mg/dL Glucose 114 H (74-99) mg/dL Assessment and Plan Assessment: 1. Acute hypoxia with pancreatic etiology 2. Acute cholecystitis status post cholecystectomy. 3. debility and deconditioning. 4. Radiculopathy. 5. Coronary artery disease. 6. Anemia of chronic disease. 7. Hypertension. 8. Hyperlipidemia I have discussed with patient and his family at the bedside in the presence of the nursing staff current treatment plan what I would like to order a CTA chest to rule out pulmonary embolism but patient kidney function was found to be slightly elevated as last blood work was done on November 29 I would like to order VQ scan and follow-up on test results consider starting patient on heparin drip shall he be considered intermediate or high risk for pulmonary embolism. Patient and his family understands this can benefit in treatment and agreeable to current treatment plan. Will continue with oxygen therapy at this point and consider breathing treatment and encourage incentive spirometer. We will consider venous Doppler based on VQ scan result.
[2017-12-05] MEDS ORDERED: SODIUM POLYSTYRENE SULFONATE 15 GM/60 ML BOTTLE PO STA (18:18)
--- NOTE | 2017-12-05 18:18 | NM ---
EXAMINATION TYPE: NM pul vent and perfuse DATE OF EXAM: 12/05/2017 COMPARISON: NONE HISTORY: Hypoxemia TECHNIQUE: Utilizing inhalation of 68 mCi Tc 99m DTPA aerosol and intravenous injection of 5.2 mCi o f Tc 99m MAA, ventilation and perfusion images are acquired post injection in multiple projections. FINDINGS: Ventilation images are within normal limits. Perfusion images appear normal. The remainder of exam is unremarkable. IMPRESSION: Normal exam. There is a very low probability of pulmonary embolism.
--- NOTE | 2017-12-05 18:32 | XR ---
EXAMINATION TYPE: XR chest 2V DATE OF EXAM: 12/05/2017 COMPARISON: 11/25/2017 HISTORY: Short of breath TECHNIQUE: Frontal and lateral views of the chest are obtained. FINDINGS: There is no heart failure nor confluent pneumonic infiltrate. 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 There is left axillary pacemaker. The bony thorax appears intact. IMPRESSION: No active cardiopulmonary disease. There is clearing of the heart failure and pleural fl uid and atelectasis compared to old exam.
[2017-12-05] MEDS ORDERED: FUROSEMIDE 10 MG/ML 2 ML VIAL IV ONE (20:01)
[2017-12-05] MEDS: ONDANSETRON 4 MG/2 ML VIAL IVP PRN (20:26)
[2017-12-05] MEDS: ATORVASTATIN 80 MG TAB PO SCH (21:36)
[2017-12-06 07:46] LABS: Basophils # (A) 0.1 k/uL (0-0.2); Basophils % (A) 1 %; Eosinophils # (A) 0.4 k/uL (0-0.7); Eosinophils % (A) 4 %; HGB 13.2 gm/dL (13.0-17.5); Lymphocytes # (A) 1.4 k/uL (1.0-4.8); Lymphocytes % (A) 13 %; MCH 31.4 pg (25.0-35.0); MCHC 32.3 g/dL (31.0-37.0); MCV 97.5 fL (80.0-100.0); Mean Platelet Volume 7.4; Monocytes # (A) 0.5 k/uL (0-1.0); Monocytes % (A) 5 %; Neutrophils % (A) 75 %; Platelet Count 389 k/uL (150-450); RBC 4.21 m/uL (4.30-5.90); RDW 12.9 % (11.5-15.5); WBC 10.7 k/uL (3.8-10.6)
[2017-12-06 08:09] LABS: Calcium 9.6 mg/dL (8.4-10.2)
[2017-12-06 08:16] LABS: Potassium 6.6 mmol/L (3.5-5.1)
[2017-12-06] MEDS ORDERED: SODIUM POLYSTYRENE SULFONATE 15 GM/60 ML BOTTLE PO STA (08:28)
[2017-12-06] MEDS: AMOXIC-POT CLAV 500-125 MG 1 EACH TAB PO SCH ×2 (08:45→20:11)
[2017-12-06] MEDS: ASPIRIN 81 MG PO SCH (08:45)
[2017-12-06] MEDS: PANTOPRAZOLE 40 MG TABLET PO SCH (08:45)
[2017-12-06] MEDS: FUROSEMIDE 40 MG TAB PO SCH ×2 (08:46→16:08)
[2017-12-06] MEDS: FLUTICASONE 50MCG/SPRAY NASAL 16GM EA NOSTRIL SCH (08:46)
[2017-12-06] MEDS: CLOPIDOGREL 75 MG TAB PO SCH (08:47)
[2017-12-06] MEDS: LIDOCAINE 5% PATCH TOPICAL SCH (08:47)
[2017-12-06] MEDS: DOCUSATE 100 MG CAP PO SCH ×2 (08:47→20:11)
[2017-12-06] MEDS: METOPROLOL TARTRATE 50 MG TAB PO SCH ×2 (08:48→20:11)
[2017-12-06] MEDS: NYSTATIN 100,000 UNIT/ML SUSP 500,000 UNIT/5 ML CUP PO SCH ×4 (08:49→22:34)
[2017-12-06] MEDS: SPIRONOLACTONE 25 MG TAB PO SCH (08:49)
[2017-12-06] MEDS: POLYETHYLENE GLYCOL 3350 17 GM POWD.PACK PO SCH (08:49)
[2017-12-06] MEDS: LISINOPRIL 10 MG TAB PO SCH (08:49)
[2017-12-06] MEDS: AMIODARONE 200 MG TAB PO SCH (08:50)
--- NOTE | 2017-12-06 10:05 | P.PN ---
Subjective Progress Note Date: 12/06/17 82-year-old male being seen on a re-eval at the request of the attending for episodes of intermittent belching and burping with abdominal bloating Daughter at the bedside states that the patient had been doing this at home prior to being admitted. Patient initially was being seen by surgical service for abdominal pain and pancreatitis. On November 22 underwent a laparoscopic cholecystectomy for cholecystitis. no postop surgical events. Currently patient is resting in bed. With assistance to sit on the edge of the been belching. Patient states he has a nausea sensation no active emesis and feels bloated mild distention noted surgical dressing site dry. States he had a bowel movement last evening Objective - Vital Signs Vital signs: Vital Signs Temp 98 F 12/06/17 05:00 Pulse 60 12/06/17 05:00 Resp 16 12/06/17 05:00 BP 136/63 12/06/17 05:00 Pulse Ox 97 12/06/17 05:00 Intake & Output 12/05/17 12/06/17 12/06/17 18:59 06:59 18:59 Intake Total 500 Output Total 250 Balance 250 Intake: Oral 500 Output: Urine 250 Other: Voiding Method Toilet Toilet Urinal Urinal # Voids 1 # Bowel Movements 1 - Exam Physical exam 82-year-old hard of hearing male being seen appearing in no acute distress Lungs posterior diminished at the bases upper airways bronchial breath sounds Heart S1-S2 audible denying chest pain abdomen no tenderness slightly distended surgical dressing sites dry reports a nausea sensation no active emesis no consistent belching or burping states had a bowel movement last night poor caloric intake patient states has no appetite extremities no edema noted - Labs CBC & Chem 7: 12/06/17 06:32 12/06/17 11:56 Labs: Abnormal Lab Results - Last 24 Hours (Table) 12/05/17 12/06/17 12/06/17 Range/Units 15:37 06:32 06:32 WBC 10.7 H (3.8-10.6) k/uL RBC 4.21 L (4.30-5.90) m/uL Neutrophils # 8.0 H (1.3-7.7) k/uL Sodium 133 L 134 L (137-145) mmol/L Potassium 5.5 H 6.6 H* (3.5-5.1) mmol/L BUN 41 H 43 H (9-20) mg/dL Creatinine 1.79 H 1.97 H (0.66-1.25) mg/dL Glucose 114 H 109 H (74-99) mg/dL Assessment and Plan Assessment: Impression Present on admission right upper quadrant abdominal pain with a CT abdomen and pelvis report gallbladder distended with adjacent stranding suggesting acute cholecystitis Present on admission elevated lipase pancreatitis unclear etiology possible biliary pancreatitis Known coronary artery disease with prior coronary stenting on Plavix Cardiomyopathy with AICD Peptic ulcer disease Prior to admission fall did not lose consciousness strike left forehead and left shoulder Postop November 22 laparoscopic cholecystectomy for acute cholecystitis Hypokalemia with episodes of hyperkalemia Episodes of burping and belching with nausea sensation abdominal bloating Plan Pain control Continue postop surgical care Will follow closely with you DVT and GI prophylaxis Increase activity Await GIs eval pending Repeat labs in the morning No evidence of an acute surgical abdomen at this time The above impression and plan of care have been discussed and directed by signing physician. Glenny Lunsford nurse practitioner acting as scribe for signing physician.
[2017-12-06] MEDS ORDERED: chlorproMAZINE 25 MG TAB PO PRN (10:53)
[2017-12-06] MEDS ORDERED: SODIUM CHLORIDE 0.9% 1,000 ML IV SCH (14:15)
--- NOTE | 2017-12-06 15:48 | P.PN ---
Subjective Progress Note Date: 12/06/17 This is an 82-year-old male one of Dr. Hassan with a previous medical history significant for CAD post the cardiac arrest with ischemic cardiomyopathy post AICD implantation, left heart catheterization with PCI back in 2013, chronic systolic heart failure with EF 35 %, peptic ulcer disease, hyperlipidemia, hypothyroidism, osteoarthritis. Patient was admitted in February 2016 for dizziness and subsequently his ICD fired first time and it did fire again the second time V. fib V. tach was detected. ICD was interrogated and adjusted from 25-35 J. Last admission in `2016 for hyponatremia. Patient comes in to the ER with significant back pain that started last night radiated to the epigastric area. Patient also endorses nausea but no episode of vomiting. He denies any previous augmentation of severe chest pain. Since the pain did not get better patient decided to come to the ER. On evaluation in the ER patient had a lipase of 10,000-34 and an amylase of 593. LFTs suggested alkaline phosphatase 140 with normal bilirubin and AST and ALT. Patient denies history of alcoholism. Ultrasound abdomen was obtained that suggested cholecystitis. Possible sludge near the neck with wall thickening and pericholecystic fluid was seen. Echocardiogram was obtained which suggested EF of 25-30% with severe global hypokinesia.Vitals obtained this morning suggests tachycardia, blood pressure 205/137, saturating well on room air. Patient on evaluation is nauseous and having multiple bouts of vomiting uncontrolled on Zofran and Reglan. Oral medication could not be an administrated as patient was nauseous. Other pertinent labs include a lactic acid 2.3 which improved to 1. 5 in the afternoon. Troponin 1 is negative. Triglyceride 181 in August 2017. Patient's presentation is concerning for cholecystitis and pancreatitis. CT of the tendon last night suggest distended gallbladder with acute cholecystitis with stranding that about the head and uncinate process of the pancreas concerning for acute pancreatitis. Gastroenterology and surgery on consult. Patient may require cardiac clearance prior to going for surgery. Keep Plavix on hold. Cardiology evaluation pending keep patient nothing by mouth. Normal saline running at 75 mL in due to decreased ejection fraction and concern for volume overload 11/17: Patient denies having any nausea today. He denies any chest pain or shortness of breath. He does have incentive spirometry. Patient was scheduled for gallbladder surgery with Dr. Pulido this week as he needed to be off Plavix which has been postponed until Wednesday. White count has jumped up to 16.1 , creatinine is 1.12, lites within normal limits. Amylase is down to 447 and lipase is significantly improved at 2076. AST and ALT slightly elevated. Patient encouraged to increase activity. 11/18: Today, patient is complaining of neck pain which he has had for about 4 months. We are starting baclofen and tramadol. Abdominal pain is a lot better. He denies any shortness of breath at this time but he did have an episode where his pulse ox dropped down to 85% off oxygen. He is currently pulse ox a 91-92% on 2 L nasal cannula. Chest x-ray ordered. Besides the neck pain, patient is also complaining of lower back pain most likely from bed. White count remains elevated at 17.2. Liver function tests are normalized. Lipase is down to 1052. 11/19: Patient's family is at bedside and concerned that he has some slurred speech. No slurred speech noted. Generalized weakness. Thinks he pulled a muscle when he was getting up to the chair. Baclofen was started yesterday which will be discontinued. He states that he is feeling tired. Chest x-ray shows pulmonary edema and pleural fluid consistent with congestive heart failure is much worse than last exam. IV fluids will be completely discontinued and IV Lasix started. The troponin has been ordered which is 0.076 and cardiology notified. Discussed in detail with the patient that he has high risk during surgery and may require intubation and ICU care after surgery. Patient does understand this. Surgery is currently scheduled for Wednesday with Dr. Pulido. 11/20: Patient is resting comfortably in bed without any new complaints today. Patient states that he is feeling better. Surgery is scheduled for Wednesday with Dr. Pulido. White count has improved to 10.4. Hemoglobin has been stable at 12.1. Lipase continues to decline. Repeat CBC and comp ordered. Patient continues to tolerate a full liquid diet. Patient denies any nausea or vomiting , abdominal pain, or diarrhea. Patient denies any chest discomfort or difficulty breathing. 11/21: Patient complains of abdominal discomfort. Denies any nausea or vomiting or diarrhea at this time. Patient complains of not having a bowel movement since being in the hospital, however, he is not had a large amount of food intake. Patient is requesting to get up to shower, encouraged patient to shower prior to surgery that is scheduled for Wednesday with Dr. Pulido. WBC 12.6 hemoglobin 12.6, lipase was elevated this morning at 837. 11/22: Patient is going for surgery. 11/23: Patient underwent laparoscopic cholecystectomy yesterday. He has been nothing by mouth but will start clear liquids for lunch today. He is anxious to eat. Abdominal pain is controlled. Yesterday afternoon, he had a drop in his pulse ox 87% and required Ventimask. His blood pressure was elevated for which an extra dose of lisinopril was given. Dilaudid was resumed for pain control. Temperature max 101.1. White count is at 15.8. He is continued on Unasyn. Lipase has normalized and liver function tests are within normal limits. Cardiology has increased Lasix to 20 mg 3 times daily. Repeat EKG was ordered and telemetry added. Pulse ox is 91% on 4 L. Patient does not appear to be dyspneic. He states he has not had a bowel movement and concern for constipation for which Senokot ordered. He states he has been voiding without any problems. Discussed discharge plan patient is planning to return home but we will ask for PT to reevaluate today for possible subacute rehab. Plan to increase activity and possible discharge by tomorrow depending on progress. 11/24: Patient was sitting up in a chair for most the morning and has just now returned to bed. He remains with EDVIN drain in place with serous drainage. White count is decreased to 12. Potassium will be replaced. Patient continues to have constipation with no results from Senokot yesterday. Colace will be scheduled regularly. Patient is currently on O2 at 4 L and Lasix increased to 40 mg twice daily. Patient states he is urinating okay. Lidocaine patch added for chronic neck pain. He has been afebrile 11/25. Patient sitting in bed oriented 3. Is able to provide history. Neck pain is controlled after lidocaine patches. Applied. Continues to be on 4 L of oxygen despite increase of Lasix to 40 mg twice daily. Pro-calcitonin ordered. Since there is no improvement in hypoxia CT chest ordered to evaluate further. Plavix initiated today. Patient still has a EDVIN drain with drainage of 50 mL 11/26 patient leg in bed comfortable. Denies any shortness of breath or cough. CT chest bilateral small pleural effusion with compressive atelectasis with partial visualization of the surgical drape with associated. Told be a global cardiomegaly with moderate to severe coronary calcification and emphysema seen. Lasix reduced to 40 mg by mouth twice a day. Patient's hypoxic at 4 L at 90- 91%*encouraged incentive spirometry. Pro-calcitonin levels are high but no consolidation seen on chest CT to suggest pneumonia, could be related to recent surgery and stress associated. We will repeat in 48 hours PTOT consult in possible discharge to subacute rehab on Wednesday. 11/27: Patient went to the bathroom earlier today trying to have a bowel movement, patient continues to have some shortness of breath, he was instructed to use incentive spirometer continue oxygen support continue with the current medication continue physical therapy evaluation for possible ECF on Wednesday. 11/28: Patient is complaining of increased bloating and his stomach and he has not had a bowel movement for the past week or so he continues to pass some flatus, he has poor appetite and he has decreased bowel sounds, we will try the patient on Dulcolax suppository 10 mg 1 and if not better will obtain x-rays of the abdomen. 11/29: Patient evaluated today. Abdominal x-ray shows constipation, possible left renal calculus, new pleural reaction at the lung bases. Last bowel movement was 11/28. Patient continues to have generalized weakness, will be transferred to [facility] today for rehab. 12/01: Today, discharge is still pending awaiting insurance authorization. Patient has been updated and he would prefer to go home. Case management to set up home care for him and patient will be discharged home in stable condition. His new medications will be sent to my her pharmacy. Patient was prescribed [place] and the Opioid Start Talking form was reviewed with the patient , he verbalized understanding and signed form. 12/03: Patient was prepared for discharge home but at the time he was signing papers, family convinced him to go to rehab instead. [facility] was notified to resume process for insurance authorization. At this time, we are awaiting that authorization. Patient is frustrated with the process but denies any new complaints. He is eating adequately. No chest pain or shortness of breath. He is urinating adequately. 12/04: Patient continued to be hemodynamically stable still feeling weak but able to ambulate with assistance family member at the bedside patient is denying chest pain, shortness breath, nausea, vomiting or abdominal pain. We will continue supportive care and continue physical therapy monitor patient's closely and consider discharging to penitentiary on Wednesday I have communicated with insurance company and did Peer to peer. And patient is accepted to a penitentiary facility and arrangements will be done on Tuesday 12/05: Patient was found to be hypoxic overnight and was placed on 3 L nasal cannula and currently his oxygenation at 97% but after removing the nasal cannula for 1 hour and his oxygenation went down to mid 80s at the time patient is not oxygen dependent at home. Patient is denying chest pain, shortness breath , nausea, vomiting, abdominal pain, dizziness, lightheadedness or blurry vision patient was up to the bathroom this morning and ambulating with assistance.I have discussed with patient and his family at the bedside in the presence of the nursing staff current treatment plan what I would like to order a CTA chest to rule out pulmonary embolism but patient kidney function was found to be slightly elevated as last blood work was done on November 29 I would like to order VQ scan and follow-up on test results consider starting patient on heparin drip shall he be considered intermediate or high risk for pulmonary embolism. Patient and his family understands this can benefit in treatment and agreeable to current treatment plan. Will continue with oxygen therapy at this point and consider breathing treatment and encourage incentive spirometer. We will consider venous Doppler based on VQ scan result. 12/06: Chest x-ray shows no active cardiopulmonary disease. There is cleaning of heart failure and pleural fluid and atelectasis compared to old exam. VQ scan is low probability for pulmonary embolism. General surgery has been asked to re-see patient due to belching and nausea. Discussed case with GI and Thorazine added. Potassium 6.6 today and repeat is 4.8 after Kayexalate. BUN 43 and creatinine 1.97. Patient's been ordered for IV fluids 2.9 normal saline at 75 mL per hour for 1 L. Patient denies any abdominal pain, no headache. Informed today that insurance has denied authorization for subacute rehab. Review of systems: Constitutional: no fever, no chills, no night sweats. EENT: No headache. No blurred vision or double vision, no loss of vision. No nasal drainage or congestion. No epistaxis. No sore throat. Lungs: No shortness of breath, cough, no sputum production. No wheezing. Cardiovascular: No chest pain, no lower extremity edema. No palpitations. No paroxysmal nocturnal dyspnea. No orthopnea. No lightheadedness or dizziness. No syncopal episodes. Abdominal: abdominal pain controlled. + nausea, no vomiting. No diarrhea. No constipation. No bloody or tarry stools. No loss of appetite.+ Belching Genitourinary: No dysuria, increased frequency, urgency. No urinary retention. Musculoskeletal: No myalgias. No muscle weakness, no gait dysfunction, no frequent falls. + neck pain. Integumentary: No rash or pruritus. No unusual bruising. No change in hair or nails. Psychiatric: No depression. No anxiety. No mood swings. Endocrine: No cold intolerance Objective - Vital Signs Vital signs: Vital Signs Temp 97.1 F L 12/06/17 12:10 Pulse 63 12/06/17 12:10 Resp 16 12/06/17 12:10 BP 111/57 12/06/17 12:10 Pulse Ox 98 12/06/17 12:10 Intake & Output 12/05/17 12/06/17 12/06/17 18:59 06:59 18:59 Intake Total 500 Output Total 250 Balance 250 Intake: Oral 500 Output: Urine 250 Other: Voiding Method Toilet Toilet Toilet Urinal Urinal Urinal # Voids 1 2 # Bowel Movements 1 - Exam General appearance: average body habitus, no distress, obese - EENT Eyes: PERRLA, no photophobia, dentition normal ENT: hard of hearing Ears: bilateral: normal - Neck Neck: no lymphadenopathy, normal ROM, no rigidity, no stridor Carotids: bilateral: upstroke normal Thyroid: bilateral: normal size - Respiratory Respiratory: bilateral: CTA, negative: diminished, dullness, rales, rhonchi, wheezing - Cardiovascular Rhythm: regular Heart sounds: normal: S1, S2 Abnormal Heart Sounds: systolic murmur ankle Peripheral Edema: absent: None dorsalis pedis Peripheral Pulses: bilateral: Normal - Gastrointestinal General gastrointestinal: normal bowel sounds, soft, no tenderness. Surgical dressing sites are dry. No sign of infection - Integumentary Integumentary: no cellulitis, no cyanotic, no decreased turgor, no jaundiced - Neurologic Neurologic: CNII-XII intact - Musculoskeletal Musculoskeletal: generalized weakness - Psychiatric Psychiatric: A&O x's 3, appropriate affect - Labs CBC & Chem 7: 12/06/17 06:32 12/06/17 11:56 Labs: Abnormal Lab Results - Last 24 Hours (Table) 12/05/17 12/06/17 12/06/17 Range/Units 15:37 06:32 06:32 WBC 10.7 H (3.8-10.6) k/uL RBC 4.21 L (4.30-5.90) m/uL Neutrophils # 8.0 H (1.3-7.7) k/uL Sodium 133 L 134 L (137-145) mmol/L Potassium 5.5 H 6.6 H* (3.5-5.1) mmol/L BUN 41 H 43 H (9-20) mg/dL Creatinine 1.79 H 1.97 H (0.66-1.25) mg/dL Glucose 114 H 109 H (74-99) mg/dL Lipase (23-300) U/L 12/06/17 Range/Units 11:56 WBC (3.8-10.6) k/uL RBC (4.30-5.90) m/uL Neutrophils # (1.3-7.7) k/uL Sodium (137-145) mmol/L Potassium (3.5-5.1) mmol/L BUN (9-20) mg/dL Creatinine (0.66-1.25) mg/dL Glucose (74-99) mg/dL Lipase 908 H (23-300) U/L Assessment and Plan Plan: 1. Acute cholecystitis and pancreatitis. Status post cholecystectomy 2 cholecystitis with ascending cholangitis. Patient on Augmentin. Status post laparoscopic cholecystectomy. 3. Acute pancreatitis secondary to gallstones. 4. h/o V. fib/V. tach and ischemic cardiomyopathy status post AICD with acute on chronic systolic heart failure. Until oral Lasix increased to 40 mg IV twice daily. IV fluids discontinued. Continue amiodarone 200 mg po daily 5. CAD post [place] with cardiac arrest status post PCI back in 2013. Continue metoprolol 50 mg orally twice every day, lisinopril 10 mg twice daily, aspirin 81 mg orally once every day. Plavix resumed. Cardiology following on an as- needed basis only 6. Hyperlipidemia. Continue Lipitor, patient on low-cholesterol diet. 7. Hypertension. Continue metoprolol 50 mg orally twice every day, Aldactone 12.5 mg by mouth daily, lisinopril 10 mg twice daily. 8. Post partial thyroidectomy. 9. AMD. Stable at this point in time. 10. History of PUD. Continue Protonix 40 mg orally once every day. 11. Osteoarthritis. Stable. 12. Ischemic cardiomyopathy s/p AICD. 13. DVT prophylaxis. Lovenox 40 mg subcutaneously every 24 hours. 14. GI prophylaxis. Protonix 40 mg orally once every day. 15. Degenerative disc disease of the cervical spine. Baclofen continued. Continue tramadol as needed. 16. Acute kidney injury with significant hyperkalemia. Patient is status post Kayexalate. IV fluids 1 L and then discontinue. Recheck lab work tomorrow 17. Uncontrolled belching and nausea. Thorazine added discharge plan: home Impression and plan of care have been directed as dictated by the signing physician. Robyn Lopez nurse practitioner acting as scribe for signing physician.
[2017-12-06] MEDS: ONDANSETRON 4 MG/2 ML VIAL IVP PRN (19:25)
[2017-12-06] MEDS: ATORVASTATIN 80 MG TAB PO SCH (20:11)
--- NOTE | 2017-12-06 20:28 | US ---
EXAMINATION TYPE: US kidneys/renal and bladder DATE OF EXAM: 12/06/2017 COMPARISON: NONE CLINICAL HISTORY: neli. NELI, history of renal cysts EXAM MEASUREMENTS: Right Kidney: 12.2 x 4.8 x 5.0 cm Left Kidney: 11.9 x 6.5 x 5.2 cm Technical limitations due to overlying bowel content Right Kidney: cystic areas noted, largest = 5.8 x 5.8 x 5.8cm Left Kidney: dense echogenic area mid Bladder: appears wnl Bilateral Jets seen: yes IMPRESSION: Multiple simple right renal cortical cysts. No evidence of solid renal mass or obstruction. Urinary b ladder appears normal.
[2017-12-06] MEDS: ACETAMINOPHEN TAB 325 MG TAB PO PRN (20:33)
[2017-12-07 08:18] LABS: Basophils # (A) 0.1 k/uL (0-0.2); Basophils % (A) 1 %; Eosinophils # (A) 0.4 k/uL (0-0.7); Eosinophils % (A) 4 %; HCT 37.9 % (39.0-53.0); Lymphocytes # (A) 1.5 k/uL (1.0-4.8); Lymphocytes % (A) 16 %; MCH 30.9 pg (25.0-35.0); MCHC 31.8 g/dL (31.0-37.0); MCV 97.3 fL (80.0-100.0); Mean Platelet Volume 7.6; Monocytes # (A) 0.5 k/uL (0-1.0); Monocytes % (A) 5 %; Neutrophils # (A) 7.1 k/uL (1.3-7.7); Neutrophils % (A) 72 %; Platelet Count 356 k/uL (150-450); WBC 9.8 k/uL (3.8-10.6)
--- NOTE | 2017-12-07 08:32 | P.PN ---
Subjective Progress Note Date: 12/07/17 82-year-old male sitting up in a chair this morning. Continues to report having intermittent episodes where he belches. States is a nausea sensation with no appetite did note that GI recommended Thorazine patient states he's not sure if it helped patient states that he did have episodes at home of belching and burping did note the lipase is elevated this morning 908 it was 165 on November 23 Objective - Vital Signs Vital signs: Vital Signs Temp 97.8 F 12/07/17 04:27 Pulse 64 12/07/17 04:27 Resp 16 12/07/17 04:27 BP 122/75 12/07/17 04:27 Pulse Ox 100 12/07/17 04:27 Intake & Output 12/06/17 12/07/17 12/07/17 18:59 06:59 18:59 Weight 74.5 kg Other: Voiding Method Toilet Toilet Urinal Urinal # Voids 2 2 - Exam Physical exam 82-year-old hard of hearing male sitting up in a chair taking a diet reports has episodes of belching and burping Lungs posterior diminished at the bases upper airways bronchial breath sounds Heart S1-S2 audible denying chest pain abdomen no tenderness slightly distended surgical dressing sites dry reports a nausea sensation no active emesis no consistent belching or burping states poor caloric intake patient states has no appetite extremities no edema noted - Labs CBC & Chem 7: 12/06/17 06:32 12/06/17 11:56 Labs: Abnormal Lab Results - Last 24 Hours (Table) 12/06/17 Range/Units 11:56 Lipase 908 H (23-300) U/L Assessment and Plan Assessment: Impression Present on admission right upper quadrant abdominal pain with a CT abdomen and pelvis report gallbladder distended with adjacent stranding suggesting acute cholecystitis Present on admission elevated lipase pancreatitis unclear etiology possible biliary pancreatitis Known coronary artery disease with prior coronary stenting on Plavix Cardiomyopathy with AICD Peptic ulcer disease Prior to admission fall did not lose consciousness strike left forehead and left shoulder Postop November 22 laparoscopic cholecystectomy for acute cholecystitis Hypokalemia with episodes of hyperkalemia Episodes of burping and belching with nausea sensation abdominal bloating Elevated lipase pancreatitis possible biliary pancreatitis Elevated potassium hyperkalemia corrected resolve Plan Pain control Continue postop surgical care Will follow closely with you DVT and GI prophylaxis Increase activity Continue Thorazine as ordered Repeat labs in the morning No evidence of an acute surgical abdomen at this time The above impression and plan of care have been discussed and directed by signing physician. Glenny Lunsford nurse practitioner acting as scribe for signing physician.
[2017-12-07 08:39] LABS: Albumin 2.7 g/dL (3.5-5.0); Calcium 8.6 mg/dL (8.4-10.2); Potassium 4.6 mmol/L (3.5-5.1); Total Bilirubin 0.6 mg/dL (0.2-1.3); Total Protein 5.6 g/dL (6.3-8.2)
[2017-12-07] MEDS: PANTOPRAZOLE 40 MG TABLET PO SCH (09:49)
[2017-12-07] MEDS: ASPIRIN 81 MG PO SCH (09:51)
[2017-12-07] MEDS: AMIODARONE 200 MG TAB PO SCH (09:51)
[2017-12-07] MEDS: AMOXIC-POT CLAV 500-125 MG 1 EACH TAB PO SCH ×2 (09:51→21:19)
[2017-12-07] MEDS: DOCUSATE 100 MG CAP PO SCH ×2 (09:52→21:19)
[2017-12-07] MEDS: CLOPIDOGREL 75 MG TAB PO SCH (09:52)
[2017-12-07] MEDS: FUROSEMIDE 40 MG TAB PO SCH ×2 (09:53→18:42)
[2017-12-07] MEDS: LISINOPRIL 10 MG TAB PO SCH (09:53)
[2017-12-07] MEDS: METOPROLOL TARTRATE 50 MG TAB PO SCH ×2 (09:54→21:19)
[2017-12-07] MEDS: NYSTATIN 100,000 UNIT/ML SUSP 500,000 UNIT/5 ML CUP PO SCH ×4 (09:54→21:19)
[2017-12-07] MEDS: POLYETHYLENE GLYCOL 3350 17 GM POWD.PACK PO SCH (09:55)
[2017-12-07] MEDS: FLUTICASONE 50MCG/SPRAY NASAL 16GM EA NOSTRIL SCH (10:07)
[2017-12-07] MEDS: LIDOCAINE 5% PATCH TOPICAL SCH (10:11)
[2017-12-07] MEDS: SPIRONOLACTONE 25 MG TAB PO SCH (10:14)
--- NOTE | 2017-12-07 14:58 | P.PN ---
Subjective Progress Note Date: 12/07/17 This is an 82-year-old male one of Dr. Hassan with a previous medical history significant for CAD post the cardiac arrest with ischemic cardiomyopathy post AICD implantation, left heart catheterization with PCI back in 2013, chronic systolic heart failure with EF 35 %, peptic ulcer disease, hyperlipidemia, hypothyroidism, osteoarthritis. Patient was admitted in February 2016 for dizziness and subsequently his ICD fired first time and it did fire again the second time V. fib V. tach was detected. ICD was interrogated and adjusted from 25-35 J. Last admission in `2016 for hyponatremia. Patient comes in to the ER with significant back pain that started last night radiated to the epigastric area. Patient also endorses nausea but no episode of vomiting. He denies any previous augmentation of severe chest pain. Since the pain did not get better patient decided to come to the ER. On evaluation in the ER patient had a lipase of 10,000-34 and an amylase of 593. LFTs suggested alkaline phosphatase 140 with normal bilirubin and AST and ALT. Patient denies history of alcoholism. Ultrasound abdomen was obtained that suggested cholecystitis. Possible sludge near the neck with wall thickening and pericholecystic fluid was seen. Echocardiogram was obtained which suggested EF of 25-30% with severe global hypokinesia.Vitals obtained this morning suggests tachycardia, blood pressure 205/137, saturating well on room air. Patient on evaluation is nauseous and having multiple bouts of vomiting uncontrolled on Zofran and Reglan. Oral medication could not be an administrated as patient was nauseous. Other pertinent labs include a lactic acid 2.3 which improved to 1. 5 in the afternoon. Troponin 1 is negative. Triglyceride 181 in August 2017. Patient's presentation is concerning for cholecystitis and pancreatitis. CT of the tendon last night suggest distended gallbladder with acute cholecystitis with stranding that about the head and uncinate process of the pancreas concerning for acute pancreatitis. Gastroenterology and surgery on consult. Patient may require cardiac clearance prior to going for surgery. Keep Plavix on hold. Cardiology evaluation pending keep patient nothing by mouth. Normal saline running at 75 mL in due to decreased ejection fraction and concern for volume overload 11/17: Patient denies having any nausea today. He denies any chest pain or shortness of breath. He does have incentive spirometry. Patient was scheduled for gallbladder surgery with Dr. Pulido this week as he needed to be off Plavix which has been postponed until Wednesday. White count has jumped up to 16.1 , creatinine is 1.12, lites within normal limits. Amylase is down to 447 and lipase is significantly improved at 2076. AST and ALT slightly elevated. Patient encouraged to increase activity. 11/18: Today, patient is complaining of neck pain which he has had for about 4 months. We are starting baclofen and tramadol. Abdominal pain is a lot better. He denies any shortness of breath at this time but he did have an episode where his pulse ox dropped down to 85% off oxygen. He is currently pulse ox a 91-92% on 2 L nasal cannula. Chest x-ray ordered. Besides the neck pain, patient is also complaining of lower back pain most likely from bed. White count remains elevated at 17.2. Liver function tests are normalized. Lipase is down to 1052. 11/19: Patient's family is at bedside and concerned that he has some slurred speech. No slurred speech noted. Generalized weakness. Thinks he pulled a muscle when he was getting up to the chair. Baclofen was started yesterday which will be discontinued. He states that he is feeling tired. Chest x-ray shows pulmonary edema and pleural fluid consistent with congestive heart failure is much worse than last exam. IV fluids will be completely discontinued and IV Lasix started. The troponin has been ordered which is 0.076 and cardiology notified. Discussed in detail with the patient that he has high risk during surgery and may require intubation and ICU care after surgery. Patient does understand this. Surgery is currently scheduled for Wednesday with Dr. Pulido. 11/20: Patient is resting comfortably in bed without any new complaints today. Patient states that he is feeling better. Surgery is scheduled for Wednesday with Dr. Pulido. White count has improved to 10.4. Hemoglobin has been stable at 12.1. Lipase continues to decline. Repeat CBC and comp ordered. Patient continues to tolerate a full liquid diet. Patient denies any nausea or vomiting , abdominal pain, or diarrhea. Patient denies any chest discomfort or difficulty breathing. 11/21: Patient complains of abdominal discomfort. Denies any nausea or vomiting or diarrhea at this time. Patient complains of not having a bowel movement since being in the hospital, however, he is not had a large amount of food intake. Patient is requesting to get up to shower, encouraged patient to shower prior to surgery that is scheduled for Wednesday with Dr. Pulido. WBC 12.6 hemoglobin 12.6, lipase was elevated this morning at 837. 11/22: Patient is going for surgery. 11/23: Patient underwent laparoscopic cholecystectomy yesterday. He has been nothing by mouth but will start clear liquids for lunch today. He is anxious to eat. Abdominal pain is controlled. Yesterday afternoon, he had a drop in his pulse ox 87% and required Ventimask. His blood pressure was elevated for which an extra dose of lisinopril was given. Dilaudid was resumed for pain control. Temperature max 101.1. White count is at 15.8. He is continued on Unasyn. Lipase has normalized and liver function tests are within normal limits. Cardiology has increased Lasix to 20 mg 3 times daily. Repeat EKG was ordered and telemetry added. Pulse ox is 91% on 4 L. Patient does not appear to be dyspneic. He states he has not had a bowel movement and concern for constipation for which Senokot ordered. He states he has been voiding without any problems. Discussed discharge plan patient is planning to return home but we will ask for PT to reevaluate today for possible subacute rehab. Plan to increase activity and possible discharge by tomorrow depending on progress. 11/24: Patient was sitting up in a chair for most the morning and has just now returned to bed. He remains with EDVIN drain in place with serous drainage. White count is decreased to 12. Potassium will be replaced. Patient continues to have constipation with no results from Senokot yesterday. Colace will be scheduled regularly. Patient is currently on O2 at 4 L and Lasix increased to 40 mg twice daily. Patient states he is urinating okay. Lidocaine patch added for chronic neck pain. He has been afebrile 11/25. Patient sitting in bed oriented 3. Is able to provide history. Neck pain is controlled after lidocaine patches. Applied. Continues to be on 4 L of oxygen despite increase of Lasix to 40 mg twice daily. Pro-calcitonin ordered. Since there is no improvement in hypoxia CT chest ordered to evaluate further. Plavix initiated today. Patient still has a EDVIN drain with drainage of 50 mL 11/26 patient leg in bed comfortable. Denies any shortness of breath or cough. CT chest bilateral small pleural effusion with compressive atelectasis with partial visualization of the surgical drape with associated. Told be a global cardiomegaly with moderate to severe coronary calcification and emphysema seen. Lasix reduced to 40 mg by mouth twice a day. Patient's hypoxic at 4 L at 90- 91%*encouraged incentive spirometry. Pro-calcitonin levels are high but no consolidation seen on chest CT to suggest pneumonia, could be related to recent surgery and stress associated. We will repeat in 48 hours PTOT consult in possible discharge to subacute rehab on Wednesday. 11/27: Patient went to the bathroom earlier today trying to have a bowel movement, patient continues to have some shortness of breath, he was instructed to use incentive spirometer continue oxygen support continue with the current medication continue physical therapy evaluation for possible ECF on Wednesday. 11/28: Patient is complaining of increased bloating and his stomach and he has not had a bowel movement for the past week or so he continues to pass some flatus, he has poor appetite and he has decreased bowel sounds, we will try the patient on Dulcolax suppository 10 mg 1 and if not better will obtain x-rays of the abdomen. 11/29: Patient evaluated today. Abdominal x-ray shows constipation, possible left renal calculus, new pleural reaction at the lung bases. Last bowel movement was 11/28. Patient continues to have generalized weakness, will be transferred to [facility] today for rehab. 12/01: Today, discharge is still pending awaiting insurance authorization. Patient has been updated and he would prefer to go home. Case management to set up home care for him and patient will be discharged home in stable condition. His new medications will be sent to my her pharmacy. Patient was prescribed [place] and the Opioid Start Talking form was reviewed with the patient , he verbalized understanding and signed form. 12/03: Patient was prepared for discharge home but at the time he was signing papers, family convinced him to go to rehab instead. [facility] was notified to resume process for insurance authorization. At this time, we are awaiting that authorization. Patient is frustrated with the process but denies any new complaints. He is eating adequately. No chest pain or shortness of breath. He is urinating adequately. 12/04: Patient continued to be hemodynamically stable still feeling weak but able to ambulate with assistance family member at the bedside patient is denying chest pain, shortness breath, nausea, vomiting or abdominal pain. We will continue supportive care and continue physical therapy monitor patient's closely and consider discharging to fpc on Wednesday I have communicated with insurance company and did Peer to peer. And patient is accepted to a fpc facility and arrangements will be done on Tuesday 12/05: Patient was found to be hypoxic overnight and was placed on 3 L nasal cannula and currently his oxygenation at 97% but after removing the nasal cannula for 1 hour and his oxygenation went down to mid 80s at the time patient is not oxygen dependent at home. Patient is denying chest pain, shortness breath , nausea, vomiting, abdominal pain, dizziness, lightheadedness or blurry vision patient was up to the bathroom this morning and ambulating with assistance.I have discussed with patient and his family at the bedside in the presence of the nursing staff current treatment plan what I would like to order a CTA chest to rule out pulmonary embolism but patient kidney function was found to be slightly elevated as last blood work was done on November 29 I would like to order VQ scan and follow-up on test results consider starting patient on heparin drip shall he be considered intermediate or high risk for pulmonary embolism. Patient and his family understands this can benefit in treatment and agreeable to current treatment plan. Will continue with oxygen therapy at this point and consider breathing treatment and encourage incentive spirometer. We will consider venous Doppler based on VQ scan result. 12/06: Chest x-ray shows no active cardiopulmonary disease. There is cleaning of heart failure and pleural fluid and atelectasis compared to old exam. VQ scan is low probability for pulmonary embolism. General surgery has been asked to re-see patient due to belching and nausea. Discussed case with GI and Thorazine added. Potassium 6.6 today and repeat is 4.8 after Kayexalate. BUN 43 and creatinine 1.97. Patient's been ordered for IV fluids 2.9 normal saline at 75 mL per hour for 1 L. Patient denies any abdominal pain, no headache. Informed today that insurance has denied authorization for subacute rehab. 12/07: Renal ultrasound shows simple right renal cortical cyst. No evidence of solid renal mass or obstruction. Urinary bladder appears normal. BUN 38, creat 1.47, sodium 135, albumin 2.7, lipase 886. Patient's WBC is scheduled for enema today ordered by general surgery. Physical therapy has reevaluated the patient and recommended subacute rehab and insurance authorization has been requested again. Anticipate discharge tomorrow. Review of systems: Constitutional: no fever, no chills, no night sweats. EENT: No headache. No blurred vision or double vision, no loss of vision. No nasal drainage or congestion. No epistaxis. No sore throat. Lungs: No shortness of breath, cough, no sputum production. No wheezing. Cardiovascular: No chest pain, no lower extremity edema. No palpitations. No paroxysmal nocturnal dyspnea. No orthopnea. No lightheadedness or dizziness. No syncopal episodes. Abdominal: abdominal pain controlled. + nausea, no vomiting. No diarrhea. No constipation. No bloody or tarry stools. No loss of appetite.+ Belching Genitourinary: No dysuria, increased frequency, urgency. No urinary retention. Musculoskeletal: No myalgias. No muscle weakness, no gait dysfunction, no frequent falls. + neck pain. Integumentary: No rash or pruritus. No unusual bruising. No change in hair or nails. Psychiatric: No depression. No anxiety. No mood swings. Objective - Vital Signs Vital signs: Vital Signs Temp 97.8 F 12/07/17 04:27 Pulse 64 12/07/17 04:27 Resp 16 12/07/17 04:27 BP 122/75 12/07/17 04:27 Pulse Ox 100 12/07/17 04:27 Intake & Output 12/06/17 12/07/17 12/07/17 18:59 06:59 18:59 Weight 74.5 kg Other: Voiding Method Toilet Toilet Urinal Urinal # Voids 2 2 - Exam General appearance: average body habitus, no distress, obese, sitting on edge of bed - EENT Eyes: PERRLA, no photophobia, dentition normal ENT: hard of hearing Ears: bilateral: normal - Neck Neck: no lymphadenopathy, normal ROM, no rigidity, no stridor Carotids: bilateral: upstroke normal Thyroid: bilateral: normal size - Respiratory Respiratory: bilateral: CTA, negative: diminished, dullness, rales, rhonchi, wheezing - Cardiovascular Rhythm: regular Heart sounds: normal: S1, S2 Abnormal Heart Sounds: systolic murmur ankle Peripheral Edema: absent: None dorsalis pedis Peripheral Pulses: bilateral: Normal - Gastrointestinal General gastrointestinal: normal bowel sounds, soft, no tenderness. Surgical dressing sites are dry. No sign of infection - Integumentary Integumentary: no cellulitis, no cyanotic, no decreased turgor, no jaundiced - Neurologic Neurologic: CNII-XII intact - Musculoskeletal Musculoskeletal: generalized weakness - Psychiatric Psychiatric: A&O x's 3, appropriate affect - Labs CBC & Chem 7: 12/07/17 07:40 12/07/17 07:40 Labs: Abnormal Lab Results - Last 24 Hours (Table) 12/06/17 12/07/17 12/07/17 Range/Units 11:56 07:40 07:40 RBC 3.90 L (4.30-5.90) m/uL Hgb 12.0 L (13.0-17.5) gm/dL Hct 37.9 L (39.0-53.0) % Sodium 135 L (137-145) mmol/L Carbon Dioxide 31 H (22-30) mmol/L BUN 38 H (9-20) mg/dL Creatinine 1.47 H (0.66-1.25) mg/dL Glucose 104 H (74-99) mg/dL Total Protein 5.6 L (6.3-8.2) g/dL Albumin 2.7 L (3.5-5.0) g/dL Lipase 908 H 886 H (23-300) U/L Assessment and Plan Plan: 1. Acute cholecystitis and pancreatitis. Status post cholecystectomy 2. Cholecystitis with ascending cholangitis. Patient on Augmentin. Status post laparoscopic cholecystectomy. 3. Acute pancreatitis secondary to gallstones. 4. h/o V. fib/V. tach and ischemic cardiomyopathy status post AICD with acute on chronic systolic heart failure. Until oral Lasix increased to 40 mg IV twice daily. IV fluids discontinued. Continue amiodarone 200 mg po daily 5. CAD post MD with cardiac arrest status post PCI back in 2013. Continue metoprolol 50 mg orally twice every day, lisinopril 10 mg twice daily, aspirin 81 mg orally once every day. Plavix resumed. Cardiology following on an as- needed basis only 6. Hyperlipidemia. Continue Lipitor, patient on low-cholesterol diet. 7. Hypertension. Continue metoprolol 50 mg orally twice every day, Aldactone 12.5 mg by mouth daily, lisinopril 10 mg twice daily. 8. Post partial thyroidectomy. 9. AMD. Stable at this point in time. 10. History of PUD. Continue Protonix 40 mg orally once every day. 11. Osteoarthritis. Stable. 12. Ischemic cardiomyopathy s/p AICD. 13. DVT prophylaxis. Lovenox 40 mg subcutaneously every 24 hours. 14. GI prophylaxis. Protonix 40 mg orally once every day. 15. Degenerative disc disease of the cervical spine. Baclofen continued. Continue tramadol as needed. 16. Acute kidney injury with significant hyperkalemia. Patient is status post Kayexalate. IV fluids 1 L and then discontinue. Recheck lab work tomorrow 17. Uncontrolled belching and nausea. Thorazine added discharge plan: [place] versus returning home Impression and plan of care have been directed as dictated by the signing physician. Robyn Lopez nurse practitioner acting as scribe for signing physician.
[2017-12-07 15:12] VITALS: BMI 24.2
--- NOTE | 2017-12-07 15:40 | P.PN ---
Subjective Progress Note Date: 12/03/17 This is an 82-year-old male one of Dr. Hassan with a previous medical history significant for CAD post the cardiac arrest with ischemic cardiomyopathy post AICD implantation, left heart catheterization with PCI back in 2013, chronic systolic heart failure with EF 35 %, peptic ulcer disease, hyperlipidemia, hypothyroidism, osteoarthritis. Patient was admitted in February 2016 for dizziness and subsequently his ICD fired first time and it did fire again the second time V. fib V. tach was detected. ICD was interrogated and adjusted from 25-35 J. Last admission in `2016 for hyponatremia. Patient comes in to the ER with significant back pain that started last night radiated to the epigastric area. Patient also endorses nausea but no episode of vomiting. He denies any previous augmentation of severe chest pain. Since the pain did not get better patient decided to come to the ER. On evaluation in the ER patient had a lipase of 10,000-34 and an amylase of 593. LFTs suggested alkaline phosphatase 140 with normal bilirubin and AST and ALT. Patient denies history of alcoholism. Ultrasound abdomen was obtained that suggested cholecystitis. Possible sludge near the neck with wall thickening and pericholecystic fluid was seen. Echocardiogram was obtained which suggested EF of 25-30% with severe global hypokinesia.Vitals obtained this morning suggests tachycardia, blood pressure 205/137, saturating well on room air. Patient on evaluation is nauseous and having multiple bouts of vomiting uncontrolled on Zofran and Reglan. Oral medication could not be an administrated as patient was nauseous. Other pertinent labs include a lactic acid 2.3 which improved to 1. 5 in the afternoon. Troponin 1 is negative. Triglyceride 181 in August 2017. Patient's presentation is concerning for cholecystitis and pancreatitis. CT of the tendon last night suggest distended gallbladder with acute cholecystitis with stranding that about the head and uncinate process of the pancreas concerning for acute pancreatitis. Gastroenterology and surgery on consult. Patient may require cardiac clearance prior to going for surgery. Keep Plavix on hold. Cardiology evaluation pending keep patient nothing by mouth. Normal saline running at 75 mL in due to decreased ejection fraction and concern for volume overload 11/17: Patient denies having any nausea today. He denies any chest pain or shortness of breath. He does have incentive spirometry. Patient was scheduled for gallbladder surgery with Dr. Pulido this week as he needed to be off Plavix which has been postponed until Wednesday. White count has jumped up to 16.1 , creatinine is 1.12, lites within normal limits. Amylase is down to 447 and lipase is significantly improved at 2076. AST and ALT slightly elevated. Patient encouraged to increase activity. 11/18: Today, patient is complaining of neck pain which he has had for about 4 months. We are starting baclofen and tramadol. Abdominal pain is a lot better. He denies any shortness of breath at this time but he did have an episode where his pulse ox dropped down to 85% off oxygen. He is currently pulse ox a 91-92% on 2 L nasal cannula. Chest x-ray ordered. Besides the neck pain, patient is also complaining of lower back pain most likely from bed. White count remains elevated at 17.2. Liver function tests are normalized. Lipase is down to 1052. 11/19: Patient's family is at bedside and concerned that he has some slurred speech. No slurred speech noted. Generalized weakness. Thinks he pulled a muscle when he was getting up to the chair. Baclofen was started yesterday which will be discontinued. He states that he is feeling tired. Chest x-ray shows pulmonary edema and pleural fluid consistent with congestive heart failure is much worse than last exam. IV fluids will be completely discontinued and IV Lasix started. The troponin has been ordered which is 0.076 and cardiology notified. Discussed in detail with the patient that he has high risk during surgery and may require intubation and ICU care after surgery. Patient does understand this. Surgery is currently scheduled for Wednesday with Dr. Pulido. 11/20: Patient is resting comfortably in bed without any new complaints today. Patient states that he is feeling better. Surgery is scheduled for Wednesday with Dr. Pulido. White count has improved to 10.4. Hemoglobin has been stable at 12.1. Lipase continues to decline. Repeat CBC and comp ordered. Patient continues to tolerate a full liquid diet. Patient denies any nausea or vomiting , abdominal pain, or diarrhea. Patient denies any chest discomfort or difficulty breathing. 11/21: Patient complains of abdominal discomfort. Denies any nausea or vomiting or diarrhea at this time. Patient complains of not having a bowel movement since being in the hospital, however, he is not had a large amount of food intake. Patient is requesting to get up to shower, encouraged patient to shower prior to surgery that is scheduled for Wednesday with Dr. Pulido. WBC 12.6 hemoglobin 12.6, lipase was elevated this morning at 837. 11/22: Patient is going for surgery. 11/23: Patient underwent laparoscopic cholecystectomy yesterday. He has been nothing by mouth but will start clear liquids for lunch today. He is anxious to eat. Abdominal pain is controlled. Yesterday afternoon, he had a drop in his pulse ox 87% and required Ventimask. His blood pressure was elevated for which an extra dose of lisinopril was given. Dilaudid was resumed for pain control. Temperature max 101.1. White count is at 15.8. He is continued on Unasyn. Lipase has normalized and liver function tests are within normal limits. Cardiology has increased Lasix to 20 mg 3 times daily. Repeat EKG was ordered and telemetry added. Pulse ox is 91% on 4 L. Patient does not appear to be dyspneic. He states he has not had a bowel movement and concern for constipation for which Senokot ordered. He states he has been voiding without any problems. Discussed discharge plan patient is planning to return home but we will ask for PT to reevaluate today for possible subacute rehab. Plan to increase activity and possible discharge by tomorrow depending on progress. 11/24: Patient was sitting up in a chair for most the morning and has just now returned to bed. He remains with EDVIN drain in place with serous drainage. White count is decreased to 12. Potassium will be replaced. Patient continues to have constipation with no results from Senokot yesterday. Colace will be scheduled regularly. Patient is currently on O2 at 4 L and Lasix increased to 40 mg twice daily. Patient states he is urinating okay. Lidocaine patch added for chronic neck pain. He has been afebrile 11/25. Patient sitting in bed oriented 3. Is able to provide history. Neck pain is controlled after lidocaine patches. Applied. Continues to be on 4 L of oxygen despite increase of Lasix to 40 mg twice daily. Pro-calcitonin ordered. Since there is no improvement in hypoxia CT chest ordered to evaluate further. Plavix initiated today. Patient still has a EDVIN drain with drainage of 50 mL 11/26 patient leg in bed comfortable. Denies any shortness of breath or cough. CT chest bilateral small pleural effusion with compressive atelectasis with partial visualization of the surgical drape with associated. Told be a global cardiomegaly with moderate to severe coronary calcification and emphysema seen. Lasix reduced to 40 mg by mouth twice a day. Patient's hypoxic at 4 L at 90- 91%*encouraged incentive spirometry. Pro-calcitonin levels are high but no consolidation seen on chest CT to suggest pneumonia, could be related to recent surgery and stress associated. We will repeat in 48 hours PTOT consult in possible discharge to subacute rehab on Wednesday. 11/27: Patient went to the bathroom earlier today trying to have a bowel movement, patient continues to have some shortness of breath, he was instructed to use incentive spirometer continue oxygen support continue with the current medication continue physical therapy evaluation for possible ECF on Wednesday. 11/28: Patient is complaining of increased bloating and his stomach and he has not had a bowel movement for the past week or so he continues to pass some flatus, he has poor appetite and he has decreased bowel sounds, we will try the patient on Dulcolax suppository 10 mg 1 and if not better will obtain x-rays of the abdomen. 11/29: Patient evaluated today. Abdominal x-ray shows constipation, possible left renal calculus, new pleural reaction at the lung bases. Last bowel movement was 11/28. Patient continues to have generalized weakness, will be transferred to [facility] today for rehab. 12/01: Today, discharge is still pending awaiting insurance authorization. Patient has been updated and he would prefer to go home. Case management to set up home care for him and patient will be discharged home in stable condition. His new medications will be sent to my her pharmacy. Patient was prescribed Hurley and the Opioid Start Talking form was reviewed with the patient , he verbalized understanding and signed form. 12/03: Patient was prepared for discharge home but at the time he was signing papers, family convinced him to go to rehab instead. [facility] was notified to resume process for insurance authorization. At this time, we are awaiting that authorization. Patient is frustrated with the process but denies any new complaints. He is eating adequately. No chest pain or shortness of breath. He is urinating adequately. Review of systems: Constitutional: no fever, no chills, no night sweats. EENT: No headache. No blurred vision or double vision, no loss of vision. No nasal drainage or congestion. No epistaxis. No sore throat. Lungs: No shortness of breath, cough, no sputum production. No wheezing. Cardiovascular: No chest pain, no lower extremity edema. No palpitations. No paroxysmal nocturnal dyspnea. No orthopnea. No lightheadedness or dizziness. No syncopal episodes. Abdominal: abdominal pain controlled. + nausea, no vomiting. No diarrhea. No constipation. No bloody or tarry stools. No loss of appetite.+ Belching Genitourinary: No dysuria, increased frequency, urgency. No urinary retention. Musculoskeletal: No myalgias. No muscle weakness, no gait dysfunction, no frequent falls. + neck pain. Integumentary: No rash or pruritus. No unusual bruising. No change in hair or nails. Psychiatric: No depression. No anxiety. No mood swings. Objective - Vital Signs Vital signs: Vital Signs Temp 97.5 F L 12/07/17 12:32 Pulse 57 L 12/07/17 12:32 Resp 16 12/07/17 12:32 BP 116/57 12/07/17 12:32 Pulse Ox 100 12/07/17 12:32 Intake & Output 12/06/17 12/07/17 12/07/17 18:59 06:59 18:59 Intake Total 240 Balance 240 Weight 74.5 kg 74.5 kg Intake: Oral 240 Other: Voiding Method Toilet Toilet Urinal Urinal Urinal # Voids 2 2 - Exam General appearance: average body habitus, no distress, obese - EENT Eyes: PERRLA, no photophobia, dentition normal ENT: hard of hearing Ears: bilateral: normal - Neck Neck: no lymphadenopathy, normal ROM, no rigidity, no stridor Carotids: bilateral: upstroke normal Thyroid: bilateral: normal size - Respiratory Respiratory: bilateral: CTA, negative: diminished, dullness, rales, rhonchi, wheezing - Cardiovascular Rhythm: regular Heart sounds: normal: S1, S2 Abnormal Heart Sounds: systolic murmur ankle Peripheral Edema: absent: None dorsalis pedis Peripheral Pulses: bilateral: Normal - Gastrointestinal General gastrointestinal: normal bowel sounds, soft, no tenderness. Surgical dressing sites are dry. No sign of infection - Integumentary Integumentary: no cellulitis, no cyanotic, no decreased turgor, no jaundiced - Neurologic Neurologic: CNII-XII intact - Musculoskeletal Musculoskeletal: generalized weakness - Psychiatric Psychiatric: A&O x's 3, appropriate affect - Labs CBC & Chem 7: 12/07/17 07:40 12/07/17 07:40 Labs: Abnormal Lab Results - Last 24 Hours (Table) 12/07/17 12/07/17 Range/Units 07:40 07:40 RBC 3.90 L (4.30-5.90) m/uL Hgb 12.0 L (13.0-17.5) gm/dL Hct 37.9 L (39.0-53.0) % Sodium 135 L (137-145) mmol/L Carbon Dioxide 31 H (22-30) mmol/L BUN 38 H (9-20) mg/dL Creatinine 1.47 H (0.66-1.25) mg/dL Glucose 104 H (74-99) mg/dL Total Protein 5.6 L (6.3-8.2) g/dL Albumin 2.7 L (3.5-5.0) g/dL Lipase 886 H (23-300) U/L Assessment and Plan Plan: 1. Acute cholecystitis and pancreatitis. Status post cholecystectomy 2. Cholecystitis with ascending cholangitis. Patient on Augmentin. Status post laparoscopic cholecystectomy. 3. Acute pancreatitis secondary to gallstones. 4. h/o V. fib/V. tach and ischemic cardiomyopathy status post AICD with acute on chronic systolic heart failure. Until oral Lasix increased to 40 mg IV twice daily. IV fluids discontinued. Continue amiodarone 200 mg po daily 5. CAD post [place] with cardiac arrest status post PCI back in 2013. Continue metoprolol 50 mg orally twice every day, lisinopril 10 mg twice daily, aspirin 81 mg orally once every day. Plavix resumed. Cardiology following on an as- needed basis only 6. Hyperlipidemia. Continue Lipitor, patient on low-cholesterol diet. 7. Hypertension. Continue metoprolol 50 mg orally twice every day, Aldactone 12.5 mg by mouth daily, lisinopril 10 mg twice daily. 8. Post partial thyroidectomy. 9. AMD. Stable at this point in time. 10. History of PUD. Continue Protonix 40 mg orally once every day. 11. Osteoarthritis. Stable. 12. Ischemic cardiomyopathy s/p AICD. 13. DVT prophylaxis. Lovenox 40 mg subcutaneously every 24 hours. 14. GI prophylaxis. Protonix 40 mg orally once every day. 15. Degenerative disc disease of the cervical spine. Baclofen continued. Continue tramadol as needed. discharge plan: [place] versus returning home. Awaiting insurance authorization Impression and plan of care have been directed as dictated by the signing physician. Robyn Lopez nurse practitioner acting as scribe for signing physician.
[2017-12-07] MEDS: ACETAMINOPHEN TAB 325 MG TAB PO PRN (20:26)
[2017-12-07] MEDS: ATORVASTATIN 80 MG TAB PO SCH (21:19)
[2017-12-08] MEDS: PANTOPRAZOLE 40 MG TABLET PO SCH (08:07)
[2017-12-08] MEDS: ASPIRIN 81 MG PO SCH (08:07)
[2017-12-08] MEDS: LISINOPRIL 10 MG TAB PO SCH (08:07)
[2017-12-08] MEDS: SPIRONOLACTONE 25 MG TAB PO SCH (08:07)
[2017-12-08] MEDS: DOCUSATE 100 MG CAP PO SCH (08:07)
[2017-12-08] MEDS: FUROSEMIDE 40 MG TAB PO SCH (08:07)
[2017-12-08] MEDS: AMOXIC-POT CLAV 500-125 MG 1 EACH TAB PO SCH (08:07)
[2017-12-08] MEDS: CLOPIDOGREL 75 MG TAB PO SCH (08:07)
[2017-12-08] MEDS: METOPROLOL TARTRATE 50 MG TAB PO SCH (08:07)
[2017-12-08] MEDS: AMIODARONE 200 MG TAB PO SCH (08:07)
[2017-12-08] MEDS: LIDOCAINE 5% PATCH TOPICAL SCH (08:09)
[2017-12-08] MEDS: POLYETHYLENE GLYCOL 3350 17 GM POWD.PACK PO SCH (08:10)
[2017-12-08] MEDS: NYSTATIN 100,000 UNIT/ML SUSP 500,000 UNIT/5 ML CUP PO SCH ×2 (08:10→12:54)
[2017-12-08] MEDS: FLUTICASONE 50MCG/SPRAY NASAL 16GM EA NOSTRIL SCH (08:12)
[2017-12-08 09:31] VITALS: PULSE 56; RESP 18
[2017-12-08 11:39] VITALS: BP 94/65; TEMP 97.7
--- NOTE | 2017-12-08 12:41 | P.PN ---
Subjective Progress Note Date: 12/08/17 82-year-old male seen this morning sitting up in a chair patient states had a bowel movement last evening "I feel so much better less belching and burping. Discharge plan per the attending. Patient currently is denying any abdominal pain when questioning abdomen soft surgical incision sites dry lipase 886 AST 23 ALT 30 Objective - Vital Signs Vital signs: Vital Signs Temp 97.7 F 12/08/17 11:37 Pulse 56 L 12/08/17 11:37 Resp 18 12/08/17 11:37 BP 94/65 12/08/17 11:37 Pulse Ox 98 12/08/17 11:37 Intake & Output 12/07/17 12/08/17 12/08/17 18:59 06:59 18:59 Intake Total 960 240 720 Output Total 600 Balance 960 -360 720 Weight 74.5 kg 74 kg Intake: Oral 960 240 720 Output: Urine 600 Other: Voiding Method Urinal Urinal Toilet Urinal # Voids 3 1 - Exam Physical exam 82-year-old male sitting up in a chair this morning states feels much better less abdominal pain family at bedside states less belching and burping Lungs clear current sats 98% on room air no shortness of breath Heart S1-S2 audible regular Abdomen soft surgical tenderness appropriate surgical incision site dressings dry active bowel tones states urinating no difficulty reports having had several stools last night Extremity no edema - Labs CBC & Chem 7: 12/07/17 07:40 12/07/17 07:40 Assessment and Plan Assessment: Impression Present on admission right upper quadrant abdominal pain with a CT abdomen and pelvis report gallbladder distended with adjacent stranding suggesting acute cholecystitis Present on admission elevated lipase pancreatitis unclear etiology possible biliary pancreatitis Known coronary artery disease with prior coronary stenting on Plavix Cardiomyopathy with AICD Peptic ulcer disease Prior to admission fall did not lose consciousness strike left forehead and left shoulder Postop November 22 laparoscopic cholecystectomy for acute cholecystitis Hypokalemia with episodes of hyperkalemia Episodes of burping and belching with nausea sensation abdominal bloating Elevated lipase pancreatitis possible biliary pancreatitis Elevated potassium hyperkalemia corrected resolve Plan Discharge plan and progress per the attending defer to Pain control Continue postop surgical care DVT and GI prophylaxis Increase activity Continue Thorazine as ordered No evidence of an acute surgical abdomen at this time The above impression and plan of care have been discussed and directed by signing physician. Glenny Lunsford nurse practitioner acting as scribe for signing physician.
[2017-12-08] MEDS ORDERED: METOPROLOL TARTRATE 50 MG TAB PO SCH (21:00)
[2017-12-08] MEDS ORDERED: METOPROLOL TARTRATE 25 MG TAB PO SCH (21:00)
[2017-12-09] MEDS ORDERED: FUROSEMIDE 40 MG TAB PO SCH (09:00)
--- NOTE | 2017-12-09 12:18 | CDI ---
Last Revision, January 2017 Documentation Clarification Form Date: 12/09/17 From: Tammi Leonid Neeru Levon, Maintenance Aide Hours-8:30 am & 5 pm [place] Admit Date: 11/16/2017 5:42:00 AM Patient Name: Didier Carrillo Visit Number: [id number] Discharge Date: 12/08/17 ATTENTION: The Clinical Documentation Specialists (CDI) and [facility] Coding Staff appreciate your assistance in clarifying documentation. Please respond to the clarification below the line at the bottom and electronically sign. The CDI & [facility] Coding staff will review the response and follow-up if needed. Please note: Queries are made part of the Legal Health Record. If you have any questions, please contact the author of this message via ITS. Lloyd Chen MD Documentation states: last admission in 11/2016 for hyponatremia History/Risk Factors: acute pancreatitis/ac cholecystitis/cholangitis Clinical indicators: Sodium-135, 138, 137, 135, 135, 136, 134, 135, 135, 133, 133, 1325, 131, 130, 133, 133, 134, 135 Treatment: IV Saline 11/16, 11/18, 12/06 Clinical significance of diagnostic testing and treatment CANNOT be assumed or coded without physician documentation of significance if any. Please clarify what abnormal laboratory signifies: Hyponatremia Abnormal Lab Value Unable to determine Other, please specify Please continue to document in your progress notes and discharge summary in order to capture severity of illness and risk of mortality. Include clinical findings that support your diagnosis. abnormal lab value MTDD
== END 2017-12-08 15:00 | DRG 417 ==
LOC: EC 02:42 → 5MS5E 05:42 → 3NMEDONC 11-28 13:12
PROVIDERS: ADMIT Internal Medicine; ATTEND Internal Medicine
PROC: 3E0234Z Introduction of Serum, Toxoid and Vaccine into Muscle, Percutaneous Approach (ICD-10-PCS; 2017-11-16)
PROC: 0FT44ZZ Resection of Gallbladder, Percutaneous Endoscopic Approach (ICD-10-PCS; principal; 2017-11-22 11:25)
DX: K81.0 Acute cholecystitis (principal); I50.23 Acute on chronic systolic (congestive) heart failure; J96.01 Acute respiratory failure with hypoxia; K85.10 Biliary acute pancreatitis without necrosis or infection; N17.9 Acute kidney failure, unspecified; J98.11 Atelectasis; K83.09 Other cholangitis; D63.8 Anemia in other chronic diseases classified elsewhere; S00.93XA Contusion of unspecified part of head, initial encounter; K81.1 Chronic cholecystitis; Z23 Encounter for immunization; I11.0 Hypertensive heart disease with heart failure; E87.5 Hyperkalemia; Z86.74 Personal history of sudden cardiac arrest; I25.5 Ischemic cardiomyopathy; J43.9 Emphysema, unspecified; K59.00 Constipation, unspecified; E87.6 Hypokalemia; I44.0 Atrioventricular block, first degree; E78.5 Hyperlipidemia, unspecified; E89.0 Postprocedural hypothyroidism; S40.012A Contusion of left shoulder, initial encounter; G89.29 Other chronic pain; I08.0 Rheumatic disorders of both mitral and aortic valves; M50.30 Other cervical disc degeneration, unspecified cervical region; M19.91 Primary osteoarthritis, unspecified site; K27.9 Peptic ulcer, site unspecified, unspecified as acute or chronic, without hemorrhage or perforation; I25.10 Atherosclerotic heart disease of native coronary artery without angina pectoris; H91.90 Unspecified hearing loss, unspecified ear; H35.30 Unspecified macular degeneration; M54.10 Radiculopathy, site unspecified; N42.9 Disorder of prostate, unspecified; E03.9 Hypothyroidism, unspecified; M54.5 Low back pain; I25.2 Old myocardial infarction; Z79.82 Long term (current) use of aspirin; Z79.02 Long term (current) use of antithrombotics/antiplatelets; Z79.899 Other long term (current) drug therapy; Z95.810 Presence of automatic (implantable) cardiac defibrillator; Z95.5 Presence of coronary angioplasty implant and graft; Z91.81 History of falling; Z90.49 Acquired absence of other specified parts of digestive tract; Z96.653 Presence of artificial knee joint, bilateral; Z87.891 Personal history of nicotine dependence; Z98.42 Cataract extraction status, left eye; Z98.41 Cataract extraction status, right eye; Z88.8 Allergy status to other drugs, medicaments and biological substances; Z91.040 Latex allergy status; Z82.49 Family history of ischemic heart disease and other diseases of the circulatory system; Z83.3 Family history of diabetes mellitus; Z82.3 Family history of stroke; Z80.0 Family history of malignant neoplasm of digestive organs; Z80.8 Family history of malignant neoplasm of other organs or systems; Y92.002 Bathroom of unspecified non-institutional (private) residence as the place of occurrence of the external cause; W01.198A Fall on same level from slipping, tripping and stumbling with subsequent striking against other object, initial encounter
CPT/HCPCS: 36415; 70450; 71045; 71046; 71250; 74019; 74177; 76705; 76770; 78582; 80048; 80053; 82150; 83605; 83690; 83735; 84132; 84145; 84484; 85025; 85027; 85610; 85730; 87040; 88304; 93005; 93306; 94760; 96374; 96375; 99285

== ENCOUNTER 2017-12-15 13:45 | Emergency (ER) | payer MEDICARE ==
[2017-12-15] MEDS ORDERED: SODIUM CHLORIDE 0.9% 1,000 ML IV STA (13:49)
[2017-12-15] MEDS ORDERED: ONDANSETRON 4 MG/2 ML VIAL IVP STA (13:49)
[2017-12-15] MEDS ORDERED: MORPHINE SULFATE 4 MG/ML SYRINGE IV STA (13:49)
--- NOTE | 2017-12-15 13:51 | ED ---
Abdominal Pain HPI - General Source: RN notes reviewed, old records reviewed - History of Present Illness Complaint: abdominal pain Location: diffuse, periumbilical, epigastric Migration to: no migration Severity: moderate Severity scale (1-10): 4 Quality: cramping, aching Improves With: nothing Worsens With: nothing Associated Symptoms: denies other symptoms <Jose Garcia - Last Filed: 12/15/17 14:16> <Josias Maurice - Last Filed: 12/15/17 17:22> - General Stated Complaint: Nausea, Vomiting Time Seen by Provider: 12/15/17 13:47 - History of Present Illness Initial Comments: This is an 82-year-old male the ER for evaluation patient does say for evasive nausea vomiting abdominal pain. Patient is have recent hospital history of gallbladder disease with cholecystectomy. Patient's the hospital for a long time which resulted in need for rehabilitation. Patient presents from rehab facility with persistent nausea vomiting since this morning abdominal pain. Denies fever. Have bowel movement today became very weak and lightheaded while he was having the bowel movement. Patient denies chest pain or headache ( Jose Garcia) - Related Data Home Medications Medication Instructions Recorded Confirmed Nitroglycerin Sl Tabs [Nitrostat] 0.4 mg SUBLINGUAL Q5M PRN 02/12/14 12/15/17 Clopidogrel [Plavix] 75 mg PO DAILY@0800 03/29/14 12/15/17 Cetirizine HCl [Zyrtec] 10 mg PO DAILY@0800 12/03/16 12/15/17 Fluticasone Nasal [place] [Flonase 1 spray EA NOSTRIL DAILY@0800 12/03/16 12/15/17 Nasal [place]] Spironolactone [Aldactone] 12.5 mg PO DAILY@0600 12/03/16 12/15/17 Acetaminophen Tab [Tylenol] 325 mg PO Q6H PRN 11/16/17 12/15/17 Aspirin [Adult Low Dose Aspirin EC] 81 mg PO DAILY@1700 11/16/17 12/15/17 Vit A/Vit C/Vit E/Zinc/Copper 1 cap PO DAILY@1700 11/16/17 12/15/17 [ICAPS SOFTGEL] Amiodarone [Cordarone] 200 mg PO DAILY@0800 12/15/17 12/15/17 Bisacodyl [Dulcolax] 10 mg RECTAL DAILY PRN 12/15/17 12/15/17 Docusate [Colace] 100 mg PO BID@0800,1700 12/15/17 12/15/17 Furosemide [Lasix] 40 mg PO DAILY@0800 12/15/17 12/15/17 Lipase/Protease/Amylase [Pancreaze 1 cap PO TID@0730,1100,1730 12/15/17 12/15/17 4,200 Unit Cap] Lisinopril [Zestril] 10 mg PO DAILY@0800 12/15/17 12/15/17 Magnesium Hydroxide [Milk of 2,400 mg PO DAILY PRN 12/15/17 12/15/17 Magnesia] Metoprolol Tartrate [Lopressor] 25 mg PO BID@0800,1700 12/15/17 12/15/17 Na Phos,M-B/Na Phos,Di-Ba [Fleet 133 ml RECTAL DAILY PRN 12/15/17 12/15/17 Adult] Omeprazole [PriLOSEC] 20 mg PO DAILY@0600 12/15/17 12/15/17 Polyethylene Glycol 3350 [Miralax] 17 gm PO DAILY@0800 12/15/17 12/15/17 Previous Rx's Medication Instructions Recorded Atorvastatin [Lipitor] 80 mg PO HS #30 tab 11/20/13 HYDROcodone/APAP 5-325MG [[place] 1 tab PO Q4HR PRN 3 Days #18 tab 12/01/17 5-325] Lidocaine 5% Patch [Lidoderm 5% 1 patch TOPICAL DAILY patch 12/08/17 Patch] Ondansetron Odt [Zofran Odt] 4 mg PO Q8HR PRN #10 tab 12/15/17 Allergies Allergy/AdvReac Type Severity Reaction Status Date / Time amlodipine besylate Allergy Rash/Hives Verified 12/15/17 14:15 [From Norvasc] isosorbide [From Imdur] Allergy Unknown Verified 12/15/17 14:15 Latex, Natural Rubber Allergy Rash/Hives Verified 12/15/17 14:15 AICD IMPLANT Allergy Unknown Uncoded 12/15/17 14:15 Review of Systems ROS Other: All systems not noted in ROS Statement are negative. <Jose Garcia Cristin - Last Filed: 12/15/17 14:16> ROS Other: All systems not noted in ROS Statement are negative. <Josias Maurice Mckenzie - Last Filed: 12/15/17 17:22> ROS Statement: Those systems with pertinent positive or pertinent negative responses have been documented in the HPI. Past Medical History Past Medical History: Coronary Artery Disease (CAD), Heart Failure, Eye Disorder , GERD/Reflux, GI Bleed, Hyperlipidemia, Hypertension, Myocardial Infarction ([place] ), Osteoarthritis (OA), Prostate Disorder, Thyroid Disorder Additional Past Medical History / Comment(s): cardiomyopathy, DENGENERATIVE ARTHRITIS, MACULAR DEGENERATION AND CATARACTS,GI BLEED 2011, fall 11-24-16/ facial inj/bruing/broken front teeth. Last Myocardial Infarction Date:: 1993 History of Any Multi-Drug Resistant Organisms: None Reported Past Surgical History: Adenoidectomy, AICD, Appendectomy, Heart Catheterization , Heart Catheterization With Stent, Joint Replacement, Orthopedic Surgery, Tonsillectomy Additional Past Surgical History / Comment(s): AICD, DFT 04/02/14, TOTAL LT/RT KNEE ARTHROPLASTY, bilateral CATARACTS, bilateral carpal tunnel releases, PARTIAL THYROIDECTOMY due to nodules, trigger fingers. Past Anesthesia/Blood Transfusion Reactions: No Reported Reaction Additional Past Anesthesia/Blood Transfusion Reaction / Comment(s): wakes up during surgery Date of Last Stent Placement:: 1993 Type of Cardiac Device: AICD Device Placement Date:: 2013 Past Psychological History: No Psychological Hx Reported Smoking Status: Former smoker Past Alcohol Use History: None Reported Past Drug Use History: None Reported - Past Family History Son(s) Family Medical History: No Reported History Father Family Medical History: Cancer, Coronary Artery Disease (CAD), CVA/TIA, Diabetes Mellitus Additional Family Medical History / Comment(s): CAROTID ARTERY BLOCKAGE.SX IN 1988 Mother Family Medical History: Unable to Obtain Additional Family Medical History / Comment(s): AT AGE 89- UNK HX Daughter(s) Family Medical History: Cancer (Patient has 2 adopted daughters and he has been under a lot of stress with his adopted daughter whom her left taking her cars with him.) BROTHER Family Medical History: Cancer Additional Family Medical History / Comment(s): BONE, PANCREATIC <Russ Garciaophe B - Last Filed: 12/15/17 14:16> General Exam General appearance: alert, in no apparent distress Head exam: Present: atraumatic, normocephalic, normal inspection Eye exam: Present: normal appearance, PERRL, EOMI. Absent: scleral icterus, conjunctival injection, periorbital swelling ENT exam: Present: normal exam, mucous membranes moist Neck exam: Present: normal inspection. Absent: tenderness, meningismus, lymphadenopathy Respiratory exam: Present: normal lung sounds bilaterally. Absent: respiratory distress, wheezes, rales, rhonchi, stridor Cardiovascular Exam: Present: regular rate, normal rhythm, normal heart sounds. Absent: systolic murmur, diastolic murmur, rubs, gallop, clicks GI/Abdominal exam: Present: soft, normal bowel sounds. Absent: distended, tenderness, guarding, rebound, rigid Extremities exam: Present: normal inspection, full ROM, normal capillary refill. Absent: tenderness, pedal edema, joint swelling, calf tenderness Back exam: Present: normal inspection Neurological exam: Present: alert, oriented X3, CN II-XII intact Psychiatric exam: Present: normal affect, normal mood Skin exam: Present: warm, dry, intact, normal color. Absent: rash <ChristelleelizabethJose B - Last Filed: 12/15/17 14:16> Vital Signs 12/15/17 12/15/17 12/15/17 13:51 14:00 14:10 Temperature 99.1 F Pulse Rate 69 Respiratory 18 16 17 Rate Blood Pressure 125/68 125/68 117/62 O2 Sat by Pulse 95 98 98 Oximetry 12/15/17 12/15/17 12/15/17 14:20 14:30 14:40 Temperature Pulse Rate Respiratory 16 16 18 Rate Blood Pressure 117/62 117/62 104/57 O2 Sat by Pulse 95 93 L 94 L Oximetry 12/15/17 12/15/17 12/15/17 14:50 15:00 15:10 Temperature Pulse Rate 65 64 65 Respiratory 22 23 12 Rate Blood Pressure 104/57 104/57 104/55 O2 Sat by Pulse 93 L 93 L 96 Oximetry 12/15/17 12/15/17 12/15/17 15:20 15:30 15:40 Temperature Pulse Rate 64 64 63 Respiratory 21 18 20 Rate Blood Pressure 104/55 104/55 123/61 O2 Sat by Pulse 94 L 95 96 Oximetry 12/15/17 12/15/17 15:50 16:00 Temperature Pulse Rate 63 64 Respiratory 22 22 Rate Blood Pressure 123/61 123/61 O2 Sat by Pulse 94 L 96 Oximetry Medical Decision Making - EKG Data -: EKG Interpreted by Me (EKG shows sinus rhythm rate of 67, ID 204, QRS 126, QTc 473) EKG shows normal: sinus rhythm Rate: normal <Jose Garcia - Last Filed: 12/15/17 14:16> - Lab Data Result diagrams: 12/15/17 13:57 12/15/17 13:57 <Josias Maurice - Last Filed: 12/15/17 17:22> - Medical Decision Making Patient reevaluated after sign out awaiting laboratory studies and CT abdomen and pelvis. Patient had episodes of nausea and vomiting earlier this afternoon. He is 3 weeks postop cholecystectomy. Patient did have a associated pancreatitis with his previous admission. Laboratory studies reveal normal white blood cell count, stable hemoglobin, liver enzymes are normal, lipase is mildly elevated although down trending from previous. CAT scan negative for obstruction, there is some persistent inflammation in the pancreas consistent with pancreatitis. Patient reexamined, soft abdomen, no rebound or guarding. Case discussed with Dr. Madrid who is covering Dr. Pulido. It is graded patient is stable for outpatient follow-up. He will be given Zofran. He is given Zofran and fluid in the emergency department. (Josias Maurice ) - Lab Data Lab Results 12/15/17 12/15/17 12/15/17 Range/Units 13:57 13:57 13:57 WBC 11.8 H (3.8-10.6) k/uL RBC 4.17 L (4.30-5.90) m/uL Hgb 13.3 (13.0-17.5) gm/dL Hct 41.0 (39.0-53.0) % MCV 98.2 (80.0-100.0) fL MCH 31.8 (25.0-35.0) pg MCHC 32.3 (31.0-37.0) g/dL RDW 13.5 (11.5-15.5) % Plt Count 252 (150-450) k/uL Neutrophils % 94 % Lymphocytes % 2 % Monocytes % 2 % Eosinophils % 1 % Basophils % 0 % Neutrophils # 11.1 H (1.3-7.7) k/uL Lymphocytes # 0.2 L (1.0-4.8) k/uL Monocytes # 0.3 (0-1.0) k/uL Eosinophils # 0.1 (0-0.7) k/uL Basophils # 0.0 (0-0.2) k/uL PT (9.0-12.0) sec INR (<1.2) APTT (22.0-30.0) sec Sodium 137 (137-145) mmol/L Potassium 4.4 (3.5-5.1) mmol/L Chloride 107 (98-107) mmol/L Carbon Dioxide 22 (22-30) mmol/L Anion Gap 8 mmol/L BUN 19 (9-20) mg/dL Creatinine 1.17 (0.66-1.25) mg/dL Est GFR (CKD-EPI)AfAm 66 (>60 ml/min/1.73 sqM) Est GFR (CKD-EPI)NonAf 57 (>60 ml/min/1.73 sqM) Glucose 126 H (74-99) mg/dL Calcium 9.2 (8.4-10.2) mg/dL Phosphorus 3.5 (2.5-4.5) mg/dL Magnesium 1.8 (1.6-2.3) mg/dL Total Bilirubin 0.8 (0.2-1.3) mg/dL AST 19 (17-59) U/L ALT 26 (21-72) U/L Alkaline Phosphatase 113 (38-126) U/L Total Creatine Kinase 26 L (55-170) U/L CK-MB (CK-2) 0.5 (0.0-2.4) ng/mL CK-MB (CK-2) Rel Index 1.9 Troponin I <0.012 (0.000-0.034) ng/mL Total Protein 6.0 L (6.3-8.2) g/dL Albumin 3.0 L (3.5-5.0) g/dL Lipase (23-300) U/L 12/15/17 12/15/17 Range/Units 13:57 13:57 WBC (3.8-10.6) k/uL RBC (4.30-5.90) m/uL Hgb (13.0-17.5) gm/dL Hct (39.0-53.0) % MCV (80.0-100.0) fL MCH (25.0-35.0) pg MCHC (31.0-37.0) g/dL RDW (11.5-15.5) % Plt Count (150-450) k/uL Neutrophils % % Lymphocytes % % Monocytes % % Eosinophils % % Basophils % % Neutrophils # (1.3-7.7) k/uL Lymphocytes # (1.0-4.8) k/uL Monocytes # (0-1.0) k/uL Eosinophils # (0-0.7) k/uL Basophils # (0-0.2) k/uL PT 11.2 (9.0-12.0) sec INR 1.2 H (<1.2) APTT 23.2 (22.0-30.0) sec Sodium (137-145) mmol/L Potassium (3.5-5.1) mmol/L Chloride (98-107) mmol/L Carbon Dioxide (22-30) mmol/L Anion Gap mmol/L BUN (9-20) mg/dL Creatinine (0.66-1.25) mg/dL Est GFR (CKD-EPI)AfAm (>60 ml/min/1.73 sqM) Est GFR (CKD-EPI)NonAf (>60 ml/min/1.73 sqM) Glucose (74-99) mg/dL Calcium (8.4-10.2) mg/dL Phosphorus (2.5-4.5) mg/dL Magnesium (1.6-2.3) mg/dL Total Bilirubin (0.2-1.3) mg/dL AST (17-59) U/L ALT (21-72) U/L Alkaline Phosphatase (38-126) U/L Total Creatine Kinase (55-170) U/L CK-MB (CK-2) (0.0-2.4) ng/mL CK-MB (CK-2) Rel Index Troponin I (0.000-0.034) ng/mL Total Protein (6.3-8.2) g/dL Albumin (3.5-5.0) g/dL Lipase 332 H (23-300) U/L Disposition <Jose Garcia - Last Filed: 12/15/17 14:16> Is patient prescribed a controlled substance at d/c from ED?: No Time of Disposition: 17:22 <Josias Maurice - Last Filed: 12/15/17 17:22> Clinical Impression: Nausea & vomiting, Pancreatitis, Dehydration Disposition: HOME SELF-CARE Condition: Good Prescriptions: Ondansetron Odt [Zofran Odt] 4 mg PO Q8HR PRN #10 tab PRN Reason: Vomiting Referrals: David Hassan MD [Primary Care Provider] - 1-2 days Edgar Pulido MD [STAFF PHYSICIAN] - 1-2 days
[2017-12-15 13:58] VITALS: TEMP 99.1
[2017-12-15 14:19] LABS: Basophils % (A) 0 %; Eosinophils # (A) 0.1 k/uL (0-0.7); Eosinophils % (A) 1 %; HGB 13.3 gm/dL (13.0-17.5); Lymphocytes # (A) 0.2 k/uL (1.0-4.8); Lymphocytes % (A) 2 %; MCH 31.8 pg (25.0-35.0); MCHC 32.3 g/dL (31.0-37.0); MCV 98.2 fL (80.0-100.0); Mean Platelet Volume 7.5; Monocytes # (A) 0.3 k/uL (0-1.0); Monocytes % (A) 2 %; Neutrophils # (A) 11.1 k/uL (1.3-7.7); Neutrophils % (A) 94 %; Platelet Count 252 k/uL (150-450); RBC 4.17 m/uL (4.30-5.90); RDW 13.5 % (11.5-15.5); WBC 11.8 k/uL (3.8-10.6)
[2017-12-15 14:30] LABS: INR 1.2 (<1.2); Partial Thromboplastin Time 23.2 sec (22.0-30.0); Prothrombin Time 11.2 sec (9.0-12.0)
[2017-12-15 14:33] LABS: Calcium 9.2 mg/dL (8.4-10.2); Magnesium 1.8 mg/dL (1.6-2.3); Phosphorus 3.5 mg/dL (2.5-4.5); Potassium 4.4 mmol/L (3.5-5.1); Total Bilirubin 0.8 mg/dL (0.2-1.3)
[2017-12-15 14:41] LABS: Creatine Kinase 26 U/L (55-170)
[2017-12-15 14:55] LABS: Creatine Kinase MB 0.5 ng/mL (0.0-2.4); Troponin I <0.012 ng/mL (0.000-0.034)
[2017-12-15 16:10] VITALS: RESP 22
--- NOTE | 2017-12-15 16:55 | CT ---
EXAMINATION TYPE: CT abdomen pelvis w con DATE OF EXAM: 12/15/2017 COMPARISON: CT 11/16/2017 HISTORY: N/V/D/gas . pt had his gallbladder out [address] DLP: 987.7 mGycm Automated exposure control for dose reduction was used. TECHNIQUE: Helical acquisition of images from the lung bases through the pelvis have been completed. CONTRAST: Performed without Oral Contrast and with IV Contrast, patient injected with 100 mL of Isovue 300. FINDINGS: Calcification at the posterior right lung base is again seen, some dependent atelectatic changes are present. Heart is enlarged, intracardiac lead is noted with artifact. There is a hiatal hernia. No si gnificant abnormality is appreciated. AORTA: No significant abnormality is appreciated. LIVER/GB: There is been interval removal of the gallbladder. Dense focus in the gallbladder fossa cou ld represent retained stone in the surgical bed. Liver is enlarged. PANCREAS: Abnormal peripancreatic inflammatory changes again noted, pancreatic head shows some hetero geneous density and may be slightly enlarged. SPLEEN: Stable ADRENALS: No significant abnormality is seen. KIDNEYS: Stable, nonobstructive renal calculi are present bilaterally, there are associated cortical cysts as on prior, scarring present at the upper pole the right kidney, calcifications are subcentime ter, largest at the lower pole left kidney measures approximately 6 mm, single calcification on the l eft and 2 at the upper pole on the right. REPRODUCTIVE ORGANS: Prostate is enlarged and there are associated calcifications BOWEL: Colonic wall thickening is indeterminate, difficult to exclude a mucosal lesion, correlate to exclude colitis FREE AIR: No Free Air visible. ASCITES: None visible. PELVIC ADENOPATHY: None visualized. RETROPERITONEAL ADENOPATHY: No Retroperitoneal Adenopathy visible. URINARY BLADDER: No significant abnormality is seen. OSSEOUS STRUCTURES: There is a scoliosis, degenerative disc changes are present in the visualized sp ine. Facet arthropathy noted at the lower lumbar spine.. IMPRESSION: CORRELATE FOR PANCREATITIS. CORRELATE TO EXCLUDE COLITIS DESCRIBED. POSSIBLE RETAINED STONE IN THE SURGICAL BED STATUS POST CHOLECYSTECTOMY. BILATERAL NONOBSTRUCTIVE NEPHROLITHIASIS.
[2017-12-15 17:39] VITALS: BP 118/96; PULSE 63
[2017-12-15 19:41] LABS: Appearance,Urine Clear (Clear); Bilirubin,Urine Negative (Negative); Blood,Urine Negative (Negative); Color,Urine Yellow; Glucose,Urine (UA) Negative (Negative); Ketones,Urine Negative (Negative); Leukocyte Esterase,Urine Negative (Negative); Nitrite,Urine Negative (Negative); Protein,Urine Trace (Negative); Urobilinogen,Urine <2.0 mg/dL (<2.0)
== END 2017-12-15 17:53 | disposition home or self-care (01) ==
LOC: EC 13:45
DX: K85.90 Acute pancreatitis without necrosis or infection, unspecified (principal); E86.0 Dehydration; R74.8 Abnormal levels of other serum enzymes; I11.0 Hypertensive heart disease with heart failure; I50.9 Heart failure, unspecified; K21.9 Gastro-esophageal reflux disease without esophagitis; I25.10 Atherosclerotic heart disease of native coronary artery without angina pectoris; M19.90 Unspecified osteoarthritis, unspecified site; I25.2 Old myocardial infarction; Z87.891 Personal history of nicotine dependence; Z88.8 Allergy status to other drugs, medicaments and biological substances; Z91.040 Latex allergy status; Z91.048 Other nonmedicinal substance allergy status; Z79.82 Long term (current) use of aspirin; Z79.51 Long term (current) use of inhaled steroids; Z79.02 Long term (current) use of antithrombotics/antiplatelets; Z80.0 Family history of malignant neoplasm of digestive organs; Z95.810 Presence of automatic (implantable) cardiac defibrillator; Z95.5 Presence of coronary angioplasty implant and graft; Z96.653 Presence of artificial knee joint, bilateral; Z90.49 Acquired absence of other specified parts of digestive tract
CPT/HCPCS: 99285; 96374; 96375; 96361; 36415; 93005; 80053; 82550; 82553; 83690; 83735; 84100; 84484; 85025; 85610; 85730; 81003; 87086; 74177; J2270; J2405; Q9967; 87077; 87186

== ENCOUNTER 2018-02-06 17:14 | Inpatient (IN) | payer MEDICARE ==
--- NOTE | 2018-02-06 17:35 | ED ---
Fall HPI - General Chief Complaint: Fall Stated Complaint: Fall Time Seen by Provider: 02/06/18 17:19 Source: patient Mode of arrival: EMS - History of Present Illness Initial Comments: Patient is a 82-year-old male presenting for generalized weakness and multiple falls. 's bedside and states that over the last 24 hours, has fallen 6 times. He is also following her multiple times in the past causing a cervical spine fracture for which she is in a [place] collar. Over the last day, he is also now resulted in any kind of focal injury he denies any head trauma, loss consciousness, arthralgias. His only complaint is generalized weakness and again denies any chest pain, shortness of breath, abdominal pain. - Related Data Home Medications Medication Instructions Recorded Confirmed Clopidogrel [Plavix] 75 mg PO DAILY 03/29/14 02/06/18 Spironolactone [Aldactone] 25 mg PO DAILY 12/03/16 02/06/18 Aspirin [Adult Low Dose Aspirin EC] 81 mg PO DAILY 11/16/17 02/06/18 Vit A/Vit C/Vit E/Zinc/Copper 1 cap PO DAILY 11/16/17 02/06/18 [ICAPS SOFTGEL] Amiodarone [Cordarone] 200 mg PO DAILY 12/15/17 02/06/18 Lisinopril [Zestril] 10 mg PO DAILY 12/15/17 02/06/18 Metoprolol Tartrate [Lopressor] 25 mg PO BID 12/15/17 02/06/18 Omeprazole [PriLOSEC] 20 mg PO DAILY 12/15/17 02/06/18 Previous Rx's Medication Instructions Recorded Atorvastatin [Lipitor] 80 mg PO HS #30 tab 11/20/13 Allergies Allergy/AdvReac Type Severity Reaction Status Date / Time amlodipine besylate Allergy Rash/Hives Verified 02/06/18 18:18 [From Norvasc] isosorbide [From Imdur] Allergy Unknown Verified 02/06/18 18:18 Latex, Natural Rubber Allergy Rash/Hives Verified 02/06/18 18:18 AICD IMPLANT Allergy Unknown Uncoded 02/06/18 17:27 Review of Systems ROS Statement: Those systems with pertinent positive or pertinent negative responses have been documented in the HPI. Constitutional: Negative for chills, and fever. Positive for fatigue HENT: Negative for congestion. Respiratory: Negative for chest tightness, shortness of breath and wheezing. Negative for cough Cardiovascular: Negative for chest pain and palpitations. Gastrointestinal: Negative for abdominal pain. Negative for abdominal distention , diarrhea, nausea and vomiting. Genitourinary: Negative for dysuria. Musculoskeletal: Negative for back pain, neck pain and neck stiffness. Skin: Negative for color change. Neurological: Negative for dizziness, speech difficulty, weakness and light- headedness. Psychiatric/Behavioral: Negative for agitation and confusion. Negative for anxiety ROS Other: All systems not noted in ROS Statement are negative. Past Medical History Past Medical History: Coronary Artery Disease (CAD), Heart Failure, Eye Disorder , GERD/Reflux, GI Bleed, Hyperlipidemia, Hypertension, Myocardial Infarction ([place] ), Osteoarthritis (OA), Prostate Disorder, Thyroid Disorder Additional Past Medical History / Comment(s): cardiomyopathy, DENGENERATIVE ARTHRITIS, MACULAR DEGENERATION AND CATARACTS,GI BLEED 2011, fall 11-24-16/ facial inj/bruing/broken front teeth. Last Myocardial Infarction Date:: 1993 History of Any Multi-Drug Resistant Organisms: None Reported Past Surgical History: Adenoidectomy, AICD, Appendectomy, Heart Catheterization , Heart Catheterization With Stent, Joint Replacement, Orthopedic Surgery, Tonsillectomy Additional Past Surgical History / Comment(s): AICD, DFT 04/02/14, TOTAL LT/RT KNEE ARTHROPLASTY, bilateral CATARACTS, bilateral carpal tunnel releases, PARTIAL THYROIDECTOMY due to nodules, trigger fingers. Past Anesthesia/Blood Transfusion Reactions: No Reported Reaction Additional Past Anesthesia/Blood Transfusion Reaction / Comment(s): wakes up during surgery Date of Last Stent Placement:: 1993 Type of Cardiac Device: AICD Device Placement Date:: 2013 Past Psychological History: No Psychological Hx Reported Smoking Status: Former smoker Past Alcohol Use History: None Reported Past Drug Use History: None Reported - Past Family History Son(s) Family Medical History: No Reported History Father Family Medical History: Cancer, Coronary Artery Disease (CAD), CVA/TIA, Diabetes Mellitus Additional Family Medical History / Comment(s): CAROTID ARTERY BLOCKAGE.SX IN 1988 Mother Family Medical History: Unable to Obtain Additional Family Medical History / Comment(s): AT AGE 89- UNK HX Daughter(s) Family Medical History: Cancer (Patient has 2 adopted daughters and he has been under a lot of stress with his adopted daughter whom her left taking her cars with him.) BROTHER Family Medical History: Cancer Additional Family Medical History / Comment(s): BONE, PANCREATIC General Exam - General Exam Comments Initial Comments: Constitutional: Pt is oriented to person, place, and time. Pt appears well- developed and well-nourished. No distress. HENT: Head: Normocephalic and atraumatic. Eyes: EOM are normal. Neck: C-spine is in color from prior fall.. Neck supple. Cardiovascular: Normal rate, regular rhythm, S1 normal, S2 normal and normal heart sounds. Exam reveals no gallop and no friction rub. No murmur heard. Pulmonary/Chest: Effort normal and breath sounds normal. No tachypnea and no bradypnea. No respiratory distress. No wheezes or rales noted. Abdominal: Soft. Bowel sounds are normal. Pt exhibits no shifting dullness, no distension, no pulsatile liver, no fluid wave, no abdominal bruit and no ascites. There is no tenderness. There is no rigidity, no rebound, no guarding, no tenderness at McBurney's point and negative Casas's sign. Musculoskeletal: Normal range of motion. Neurological: Pt is alert and oriented to person, place, and time. No cranial nerve deficit. Skin: Skin is warm and dry. No rash noted. Pt is not diaphoretic. No erythema. No pallor. Psychiatric: Pt has a normal mood and affect. Pt behavior is normal. Thought content normal. Limitations: no limitations Course Vital Signs 02/06/18 02/06/18 02/06/18 17:20 17:22 18:00 Temperature 97.7 F Pulse Rate 74 68 Respiratory 16 20 Rate Blood Pressure 148/74 148/74 O2 Sat by Pulse 97 96 97 Oximetry 02/06/18 02/06/18 18:56 19:17 Temperature Pulse Rate 69 70 Respiratory 20 16 Rate Blood Pressure 154/80 155/80 O2 Sat by Pulse 96 96 Oximetry Medical Decision Making - Medical Decision Making Laboratory studies showed that there is no significant leukocytosis nor was her focal sign of infection. Chest x-ray was negative for infiltrate and urinalysis showed significant hematuria but no infectious etiology. There is no significant electrolyte arrangements as well and from a cardiac standpoint, troponin was not elevated. However, BNP was measured at 1920. It is unclear whether this is source of the patient's generalized fatigue but because the patient is a significant fall risk, it is not safe to send the patient home and therefore he will be admitted to hospital for further evaluation. Additionally , patient was not given Lasix his CHF is not definitive. - Lab Data Result diagrams: 02/06/18 17:29 02/06/18 17:29 Lab Results 02/06/18 02/06/18 02/06/18 Range/Units 17:29 17:29 17:29 WBC 5.7 (3.8-10.6) k/uL RBC 4.18 L (4.30-5.90) m/uL Hgb 13.2 (13.0-17.5) gm/dL Hct 40.7 (39.0-53.0) % MCV 97.2 (80.0-100.0) fL MCH 31.6 (25.0-35.0) pg MCHC 32.5 (31.0-37.0) g/dL RDW 14.2 (11.5-15.5) % Plt Count 162 (150-450) k/uL Neutrophils % 73 % Lymphocytes % 14 % Monocytes % 7 % Eosinophils % 4 % Basophils % 1 % Neutrophils # 4.2 (1.3-7.7) k/uL Lymphocytes # 0.8 L (1.0-4.8) k/uL Monocytes # 0.4 (0-1.0) k/uL Eosinophils # 0.2 (0-0.7) k/uL Basophils # 0.0 (0-0.2) k/uL PT 11.4 (9.0-12.0) sec INR 1.1 (<1.2) APTT 23.3 (22.0-30.0) sec Sodium 140 (137-145) mmol/L Potassium 3.8 (3.5-5.1) mmol/L Chloride 109 H (98-107) mmol/L Carbon Dioxide 24 (22-30) mmol/L Anion Gap 7 mmol/L BUN 15 (9-20) mg/dL Creatinine 0.78 (0.66-1.25) mg/dL Est GFR (CKD-EPI)AfAm >90 (>60 ml/min/1.73 sqM) Est GFR (CKD-EPI)NonAf 84 (>60 ml/min/1.73 sqM) Glucose 110 H (74-99) mg/dL Calcium 9.7 (8.4-10.2) mg/dL Magnesium 1.7 (1.6-2.3) mg/dL Total Bilirubin 1.0 (0.2-1.3) mg/dL AST 24 (17-59) U/L ALT 28 (21-72) U/L Alkaline Phosphatase 95 (38-126) U/L Creatine Kinase 59 (55-170) U/L Troponin I (0.000-0.034) ng/mL NT-Pro-B Natriuret Pep pg/mL Total Protein 6.1 L (6.3-8.2) g/dL Albumin 3.2 L (3.5-5.0) g/dL Lipase 226 (23-300) U/L Urine Color Urine Appearance (Clear) Urine pH (5.0-8.0) Ur Specific [place] (1.001-1.035) Urine Protein (Negative) Urine Glucose (UA) (Negative) Urine Ketones (Negative) Urine Blood (Negative) Urine Nitrite (Negative) Urine Bilirubin (Negative) Urine Urobilinogen (<2.0) mg/dL Ur Leukocyte Esterase (Negative) Urine RBC (0-5) /hpf Urine WBC (0-5) /hpf Amorphous Sediment (None) /hpf Urine Mucus (None) /hpf 02/06/18 02/06/18 02/06/18 Range/Units 17:29 17:29 18:19 WBC (3.8-10.6) k/uL RBC (4.30-5.90) m/uL Hgb (13.0-17.5) gm/dL Hct (39.0-53.0) % MCV (80.0-100.0) fL MCH (25.0-35.0) pg MCHC (31.0-37.0) g/dL RDW (11.5-15.5) % Plt Count (150-450) k/uL Neutrophils % % Lymphocytes % % Monocytes % % Eosinophils % % Basophils % % Neutrophils # (1.3-7.7) k/uL Lymphocytes # (1.0-4.8) k/uL Monocytes # (0-1.0) k/uL Eosinophils # (0-0.7) k/uL Basophils # (0-0.2) k/uL PT (9.0-12.0) sec INR (<1.2) APTT (22.0-30.0) sec Sodium (137-145) mmol/L Potassium (3.5-5.1) mmol/L Chloride (98-107) mmol/L Carbon Dioxide (22-30) mmol/L Anion Gap mmol/L BUN (9-20) mg/dL Creatinine (0.66-1.25) mg/dL Est GFR (CKD-EPI)AfAm (>60 ml/min/1.73 sqM) Est GFR (CKD-EPI)NonAf (>60 ml/min/1.73 sqM) Glucose (74-99) mg/dL Calcium (8.4-10.2) mg/dL Magnesium (1.6-2.3) mg/dL Total Bilirubin (0.2-1.3) mg/dL AST (17-59) U/L ALT (21-72) U/L Alkaline Phosphatase (38-126) U/L Creatine Kinase (55-170) U/L Troponin I 0.013 (0.000-0.034) ng/mL NT-Pro-B Natriuret Pep 1920 pg/mL Total Protein (6.3-8.2) g/dL Albumin (3.5-5.0) g/dL Lipase (23-300) U/L Urine Color Dark Brown Urine Appearance Turbid (Clear) Urine pH 5.0 (5.0-8.0) Ur Specific [place] 1.019 (1.001-1.035) Urine Protein 1+ H (Negative) Urine Glucose (UA) Negative (Negative) Urine Ketones Negative (Negative) Urine Blood Large H (Negative) Urine Nitrite Negative (Negative) Urine Bilirubin Negative (Negative) Urine Urobilinogen 2.0 (<2.0) mg/dL Ur Leukocyte Esterase Trace H (Negative) Urine RBC >182 H (0-5) /hpf Urine WBC 7 H (0-5) /hpf Amorphous Sediment Few H (None) /hpf Urine Mucus Many H (None) /hpf - EKG Data EKG Comments: EKG shows sinus rhythm with fusion complexes at a rate of 72 bpm, CO interval 196, QRS 128, QTC 438. There are no significant ST depressions or elevations. Disposition Clinical Impression: Elevated brain natriuretic peptide (BNP) level, Multiple falls Disposition: ADMITTED IP TO THIS HOSP Condition: Fair Referrals: David Hassan MD [Primary Care Provider] - 1-2 days Decision to Admit Reason: Admit from EC Decision Date: 02/06/18 Decision Time: 19:45
[2018-02-06 17:47] LABS: Basophils % (A) 1 %; Eosinophils # (A) 0.2 k/uL (0-0.7); Eosinophils % (A) 4 %; HCT 40.7 % (39.0-53.0); HGB 13.2 gm/dL (13.0-17.5); Lymphocytes # (A) 0.8 k/uL (1.0-4.8); Lymphocytes % (A) 14 %; MCH 31.6 pg (25.0-35.0); MCHC 32.5 g/dL (31.0-37.0); MCV 97.2 fL (80.0-100.0); Mean Platelet Volume 7.8; Monocytes # (A) 0.4 k/uL (0-1.0); Monocytes % (A) 7 %; Neutrophils # (A) 4.2 k/uL (1.3-7.7); Neutrophils % (A) 73 %; Platelet Count 162 k/uL (150-450); RBC 4.18 m/uL (4.30-5.90); RDW 14.2 % (11.5-15.5); WBC 5.7 k/uL (3.8-10.6)
[2018-02-06 17:55] LABS: INR 1.1 (<1.2); Partial Thromboplastin Time 23.3 sec (22.0-30.0); Prothrombin Time 11.4 sec (9.0-12.0)
[2018-02-06 17:59] LABS: ALT 28 U/L (21-72); AST 24 U/L (17-59); Albumin 3.2 g/dL (3.5-5.0); Alkaline Phosphatase 95 U/L (38-126); Anion Gap 7 mmol/L; Blood Urea Nitrogen 15 mg/dL (9-20); Calcium 9.7 mg/dL (8.4-10.2); Carbon Dioxide 24 mmol/L (22-30); Chloride 109 mmol/L (98-107); Creatine Kinase 59 U/L (55-170); Glucose 110 mg/dL (74-99); Lipase 226 U/L (23-300); Magnesium 1.7 mg/dL (1.6-2.3); Potassium 3.8 mmol/L (3.5-5.1); Sodium 140 mmol/L (137-145); Total Protein 6.1 g/dL (6.3-8.2)
[2018-02-06 18:41] LABS: Amorphous Sediment,Urine Few /hpf; Appearance,Urine Turbid (Clear); Bilirubin,Urine Negative (Negative); Blood,Urine Large (Negative); Color,Urine Dark Brown; Glucose,Urine (UA) Negative (Negative); Ketones,Urine Negative (Negative); Leukocyte Esterase,Urine Trace (Negative); Mucus,Urine Many /hpf; Nitrite,Urine Negative (Negative); Protein,Urine 1+ (Negative); RBC,Urine >182 /hpf (0-5); Specific Gravity,Urine 1.019 (1.001-1.035); WBC,Urine 7 /hpf (0-5)
--- NOTE | 2018-02-06 19:10 | XR ---
EXAMINATION TYPE: XR pelvis AP view DATE OF EXAM: 02/06/2018 COMPARISON: 06/26/2016 HISTORY: Pain TECHNIQUE: Single view FINDINGS: The pelvic ring is intact. There is narrowing of left hip joint space with spur formation. Sacroiliac joints appear intact. I see no fracture. IMPRESSION: Moderate osteoarthritis left hip joint. No fracture. No change.
--- NOTE | 2018-02-06 19:13 | XR ---
EXAMINATION TYPE: XR chest 2V DATE OF EXAM: 02/06/2018 COMPARISON: 12/05/2017 HISTORY: Pain and weakness TECHNIQUE: Frontal and lateral views of the chest are obtained. FINDINGS: Heart is normal. Lungs are clear of infiltrate. Thoracic aorta is atheromatous. There is l eft axillary pacemaker noted with the lead tip in the right ventricle. There are chest leads. There i s arthritic change in the shoulder joints. IMPRESSION: No active cardiopulmonary disease. Normal heart. No change.
[2018-02-06] MEDS ORDERED: NALOXONE 0.4 MG/ML 1 ML VIAL IV PRN (19:46)
[2018-02-06] MEDS: METOPROLOL TARTRATE 50 MG TAB PO SCH (22:30)
[2018-02-06] MEDS: ATORVASTATIN 80 MG TAB PO SCH (22:30)
[2018-02-07] MEDS: PANTOPRAZOLE 40 MG TABLET PO SCH (08:40)
[2018-02-07] MEDS: LISINOPRIL 10 MG TAB PO SCH (08:40)
[2018-02-07] MEDS: SPIRONOLACTONE 25 MG TAB PO SCH (08:40)
[2018-02-07] MEDS: CLOPIDOGREL 75 MG TAB PO SCH (08:40)
[2018-02-07] MEDS: METOPROLOL TARTRATE 50 MG TAB PO SCH ×2 (08:41→20:32)
[2018-02-07] MEDS: AMIODARONE 200 MG TAB PO SCH (08:41)
[2018-02-07] MEDS: ASPIRIN 81 MG PO SCH (08:41)
[2018-02-07] MEDS ORDERED: NON-FORMULARY DRUG (Vit A/Vit C/Vit E/Zinc/Copper [Icaps Softgel] 1 CAP) PO SCH (09:00)
[2018-02-07 10:52] LABS: Basophils % (A) 1 %; Eosinophils # (A) 0.3 k/uL (0-0.7); Eosinophils % (A) 6 %; HCT 37.3 % (39.0-53.0); Lymphocytes % (A) 19 %; MCH 31.5 pg (25.0-35.0); MCHC 32.2 g/dL (31.0-37.0); MCV 97.8 fL (80.0-100.0); Mean Platelet Volume 8.2; Monocytes # (A) 0.3 k/uL (0-1.0); Monocytes % (A) 6 %; Neutrophils # (A) 3.3 k/uL (1.3-7.7); Neutrophils % (A) 66 %; Platelet Count 159 k/uL (150-450); RBC 3.82 m/uL (4.30-5.90); RDW 14.1 % (11.5-15.5); WBC 5.1 k/uL (3.8-10.6)
[2018-02-07 11:02] LABS: ALT 24 U/L (21-72); AST 20 U/L (17-59); Albumin 2.8 g/dL (3.5-5.0); Alkaline Phosphatase 76 U/L (38-126); Anion Gap 7 mmol/L; Blood Urea Nitrogen 14 mg/dL (9-20); Calcium 9.3 mg/dL (8.4-10.2); Carbon Dioxide 23 mmol/L (22-30); Chloride 110 mmol/L (98-107); Glucose 112 mg/dL (74-99); Potassium 3.7 mmol/L (3.5-5.1); Sodium 140 mmol/L (137-145); Total Bilirubin 1.1 mg/dL (0.2-1.3); Total Protein 5.4 g/dL (6.3-8.2)
--- NOTE | 2018-02-07 13:17 | P.HPIM ---
History of Present Illness H&P Date: 02/07/18 This is an 82-year-old male one of Dr. 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 History of partial thyroidectomy Patient was admitted in February 2016 for dizziness and subsequently his ICD fired first time and it did fire again the second time V. fib V. tach was detected. ICD was interrogated and adjusted from 25-35 J. Last admission in 2016 for hyponatremia. Last admitted in November 2017 for pancreatitis secondary to gallstones with cholecystitis and ascending cholangitis it is post cholecystectomy by Dr. Pulido. Patient was also noted to be in V. fib and V. tach, Echocardiogram was obtained which suggested EF of 25-30% with severe global hypokinesia. Patient comes in today with multiple falls that started 3 days ago. Has history of cervical fracture for which patient is wearing the neck collar. Patient is complaining of increased weakness on evaluation in the ER vitals evaluated suggested temp of 97.2 heart rate 67 respiratory rate 16 blood pressure 140/74 saturating well on room air at 93%. Patient did give a history of some bloating and upper abdominal pain but denies any history of nausea, vomiting or diarrhea no dark stools or melena. He denies any chest pain or shortness of breath denies any palpitation or history of AICD firing. His echocardiogram obtained during the last visit in November 2017 suggest EF of 20- 25%. Labs obtained marketable CBC and a CMP with a urinalysis suggestive of infection. Urine culture ordered. Patient initiated on Rocephin 1 g every 24 hours. Orthostatics will be obtained BNP is 1900 non-suggestive of CHF exacerbation. Cardiology evaluation to rule out cardiogenic syncope. Orthostatics ordered to rule out orthostatic hypotension Review of Systems Constitutional: Denies chills, Denies fever, positive for lethargy Eyes: denies decreased vision, denies diplopia, denies discharge, denies pain Ears: decreased hearing Ears, nose, mouth and throat: Denies dental pain, Denies headache, Denies nasal discharge, Denies nose pain Cardiovascular: Denies chest pain, Denies decreased exercise tolerance, Denies edema, Denies high blood pressure, Denies irregular heart beat, Denies palpitations, Denies paroxysmal nocturnal dyspnea, Denies rapid heart beat, Denies shortness of breath Respiratory: Denies congestion, Denies cough, Denies cough with sputum, Denies dyspnea, Denies home oxygen, Denies wheezing Gastrointestinal: Denies abdominal pain, Denies change in bowel habits, Denies coffee ground emesis, Denies early satiety, Denies excessive gas, Denies heartburn, Denies hematemesis, Denies hematochezia, Denies loss of appetite, Denies nausea, Denies vomiting Genitourinary: Denies dysuria, Denies flank pain, Denies kidney stones, Denies menorrhagia, Denies urgency, Denies urinary frequency Musculoskeletal: Endorses gait dysfunction, and multiple falls diffuse pain, cervical pain Integumentary: Denies rash, Denies wounds, Denies brittle nails, Denies change in hair/nails, Denies darkening of skin Neurological: Denies balance difficulties, Denies change in speech, Denies double vision, Denies gait dysfunction, Denies loss of vision, Denies motor disturbance, Denies numbness, Denies paralysis, Denies paresthesias, Denies seizures Psychiatric: Denies anxiety, Denies depression Endocrine: Denies excessive sweating, Denies excessive thirst, Denies high blood sugars, Denies palpitations Hematologic/Lymphatic: Denies easy bruising, Denies lymphadenopathy Past Medical History Past Medical History: Coronary Artery Disease (CAD), Heart Failure, Eye Disorder , GERD/Reflux, GI Bleed, Hyperlipidemia, Hypertension, Myocardial Infarction ([place] ), Osteoarthritis (OA), Prostate Disorder, Thyroid Disorder Additional Past Medical History / Comment(s): cardiomyopathy, DENGENERATIVE ARTHRITIS, MACULAR DEGENERATION AND CATARACTS,GI BLEED fall11-24-16/ facial inj/bruing/broken front teeth. Last Myocardial Infarction Date:: 1993 History of Any Multi-Drug Resistant Organisms: None Reported Past Surgical History: Adenoidectomy, AICD, Appendectomy, Heart Catheterization , Heart Catheterization With Stent, Joint Replacement, Orthopedic Surgery, Tonsillectomy Additional Past Surgical History / Comment(s): AICD, DFT 04/02/14, TOTAL LT/RT KNEE ARTHROPLASTY, bilateral CATARACTS, bilateral carpal tunnel releases, PARTIAL THYROIDECTOMY due to nodules, trigger fingers. Past Anesthesia/Blood Transfusion Reactions: No Reported Reaction Additional Past Anesthesia/Blood Transfusion Reaction / Comment(s): wakes up during surgery Date of Last Stent Placement:: 1993 Type of Cardiac Device: AICD Device Placement Date:: 2013 Past Psychological History: No Psychological Hx Reported Additional Psychological History / Comment(s): Pt has a grand daughter who they adopted resides with him along with her boyfriend and daughter. He uses a walker at home. He no longer drives, grand daughter takes him places. Smoking Status: Former smoker Past Alcohol Use History: None Reported Additional Past Alcohol Use History / Comment(s): started smoking 1953, quit 1973 smoked 1 ppd. Past Drug Use History: None Reported - Past Family History Son(s) Family Medical History: No Reported History Father Family Medical History: Cancer, Coronary Artery Disease (CAD), CVA/TIA, Diabetes Mellitus Additional Family Medical History / Comment(s): CAROTID ARTERY BLOCKAGE.SX IN 1988 Mother Family Medical History: Unable to Obtain Additional Family Medical History / Comment(s): AT AGE 89- UNK HX Daughter(s) Family Medical History: Cancer (Patient has 2 adopted daughters and he has been under a lot of stress with his adopted daughter whom her left taking her cars with him.) BROTHER Family Medical History: Cancer Additional Family Medical History / Comment(s): BONE, PANCREATIC Medications and Allergies Home Medications Medication Instructions Recorded Confirmed Type Atorvastatin [Lipitor] 80 mg PO HS #30 tab 11/20/13 02/06/18 Rx Clopidogrel [Plavix] 75 mg PO DAILY 03/29/14 02/06/18 History Spironolactone [Aldactone] 25 mg PO DAILY 12/03/16 02/06/18 History Aspirin [Adult Low Dose Aspirin EC] 81 mg PO DAILY 11/16/17 02/06/18 History Vit A/Vit C/Vit E/Zinc/Copper 1 cap PO DAILY 11/16/17 02/06/18 History [ICAPS SOFTGEL] Amiodarone [Cordarone] 200 mg PO DAILY 12/15/17 02/06/18 History Lisinopril [Zestril] 10 mg PO DAILY 12/15/17 02/06/18 History Metoprolol Tartrate [Lopressor] 25 mg PO BID 12/15/17 02/06/18 History Omeprazole [PriLOSEC] 20 mg PO DAILY 12/15/17 02/06/18 History Allergies Allergy/AdvReac Type Severity Reaction Status Date / Time amlodipine besylate Allergy Rash/Hives Verified 02/06/18 18:18 [From Norvasc] isosorbide [From Imdur] Allergy Unknown Verified 02/06/18 18:18 Latex, Natural Rubber Allergy Rash/Hives Verified 02/06/18 18:18 AICD IMPLANT Allergy Unknown Uncoded 02/06/18 17:27 Physical Exam Vitals: Vital Signs Temp Pulse Pulse Resp BP BP Pulse Ox 02/07/18 10:12 98.1 F 65 20 135/73 95 02/07/18 07:25 98.1 F 70 16 172/80 94 L 02/07/18 00:03 97.2 F L 67 16 140/74 93 L 02/06/18 20:30 98.1 F 71 18 170/71 98 02/06/18 20:10 97.6 F 71 16 151/76 97 02/06/18 19:17 70 16 155/80 96 02/06/18 18:56 69 20 154/80 96 02/06/18 18:00 68 20 148/74 97 02/06/18 17:22 97.7 F 74 16 148/74 96 02/06/18 17:20 97 Intake and Output 02/06/18 02/07/18 02/07/18 22:59 06:59 14:59 Intake Total 118 Output Total 150 Balance -150 118 Intake: Oral 118 Output: Urine 150 Other: Voiding Method Urinal Urinal # Voids 2 Weight 87.543 kg - Constitutional General appearance: cooperative, no acute distress, obese - EENT Eyes: anicteric sclerae, PERRLA, normal appearance ENT: hearing grossly normal - Neck Neck: decreased ROM with neck collar - Respiratory Respiratory: bilateral: CTA, negative: diminished, dullness, rales, rhonchi - Cardiovascular Rhythm: regular Heart sounds: normal: S1, S2 Abnormal Heart Sounds: no systolic murmur, no diastolic murmur, no rub, no S3 Gallop, no S4 Gallop, no click, no other - Gastrointestinal General gastrointestinal: normal bowel sounds, soft, tende upper quad - Integumentary Integumentary: no rash - Neurologic Neurologic: CNII-XII intact - Musculoskeletal Musculoskeletal: gait not assessed , strength equal bilaterally - Psychiatric Psychiatric: A&O x's 3, appropriate affect Results CBC & Chem 7: 02/08/18 06:59 02/08/18 06:59 Labs: Abnormal Lab Results - Last 24 Hours (Table) 02/06/18 02/06/18 02/06/18 Range/Units 17:29 17:29 18:19 RBC 4.18 L (4.30-5.90) m/uL Hgb (13.0-17.5) gm/dL Hct (39.0-53.0) % Lymphocytes # 0.8 L (1.0-4.8) k/uL Chloride 109 H (98-107) mmol/L Glucose 110 H (74-99) mg/dL Total Protein 6.1 L (6.3-8.2) g/dL Albumin 3.2 L (3.5-5.0) g/dL Urine Protein 1+ H (Negative) Urine Blood Large H (Negative) Ur Leukocyte Esterase Trace H (Negative) Urine RBC >182 H (0-5) /hpf Urine WBC 7 H (0-5) /hpf Amorphous Sediment Few H (None) /hpf Urine Mucus Many H (None) /hpf 02/07/18 02/07/18 Range/Units 09:19 09:19 RBC 3.82 L (4.30-5.90) m/uL Hgb 12.0 L (13.0-17.5) gm/dL Hct 37.3 L (39.0-53.0) % Lymphocytes # (1.0-4.8) k/uL Chloride 110 H (98-107) mmol/L Glucose 112 H (74-99) mg/dL Total Protein 5.4 L (6.3-8.2) g/dL Albumin 2.8 L (3.5-5.0) g/dL Urine Protein (Negative) Urine Blood (Negative) Ur Leukocyte Esterase (Negative) Urine RBC (0-5) /hpf Urine WBC (0-5) /hpf Amorphous Sediment (None) /hpf Urine Mucus (None) /hpf Thrombosis Risk Factor Assmnt - Choose All That Apply Any of the Below Risk Factors Present?: Yes Each Factor Represents 1 point: Obesity (BMI >25) Each Risk Factor Represents 3 Points: Age 75 years or older Thrombosis Risk Factor Assessment Total Risk Factor Score: 4 Thrombosis Risk Factor Assessment Level: Moderate Risk Assessment and Plan Plan: 1. Multiple falls likely secondary to dehydration and acute UTI. We will start patient on slow hydration with and is at 50 mL/h. Watch input and output. Rocephin 1 g every 24 hours urine culture pending. Doubt cardiogenic syncope as patient did not lose any consciousness. Patient has a significant history of ischemic cardiomyopathy will have cardiology evaluate the patient will follow same as outpatient as well 2 history of cholecystitis Status post lap cholecystectomy on November 22 3. History of Acute pancreatitis secondary to gallstones. 4. h/o V. fib/V. tach - Continue amiodarone 200 mg po daily 5. CAD post [place] with cardiac arrest status post PCI back in 2013. Continue metoprolol 25 mg orally twice every day, amlodipine 12.5 mg by mouth daily, lisinopril 5 mg by mouth daily, aspirin 81 mg orally once every day continue Plavix 75 mg by mouth daily 6. Hyperlipidemia. Continue patient on low-cholesterol diet. 7. Hypertension. Continue metoprolol 25 mg orally twice every day, Imuran drawn 12.5 mg by mouth daily, lisinopril 5 mg by mouth daily 8. Post partial thyroidectomy. 9. AMD. Stable at this point in time. 10. History of PUD. Continue Protonix 40 mg orally once every day. 11. Osteoarthritis. Stable. 12. Ischemic cardiomyopathy s/p AICD Stable at this time ejection fraction similar to the previous echo 13. DVT prophylaxis. Lovenox 40 mg subcutaneously every 24 hours. 14. GI prophylaxis. Protonix 40 mg orally once every day. 15. Medical debility. The patient will need to go for subacute rehabilitationPT OT
[2018-02-07 13:21] LABS: Magnesium 1.8 mg/dL (1.6-2.3)
--- NOTE | 2018-02-07 15:02 | ECHOF ---
Referral Reason:weakness MEASUREMENTS -------- HEIGHT: 175.3 cm WEIGHT: 87.5 kg BP: 140/74 IVSd: 1.3 cm (0.6 - 1.1) LVIDd: 5.2 cm (3.9 - 5.3) LVPWd: 1.0 cm (0.6 - 1.1) IVSs: 1.0 cm LVIDs: 4.2 cm LVPWs: 0.9 cm LAESV Index (A-L): 35.53 ml/m MV E Mikie: 0.47 m/s MV DecT: 486 ms MV A Mikie: 1.06 m/s MV E/A Ratio: 0.44 RAP: 5.00 mmHg RVSP: 26.61 mmHg FINDINGS -------- Sinus rhythm. This was a technically difficult study with suboptimal views. The left ventricular size is normal. There is mild concentric left ventricular hypertrophy. Overa ll left ventricular systolic function is moderate-severely impaired with, an EF between 30 - 35 %. Mid inferoseptal LV wall motion is aneurysmal Mid anteroseptal LV wall motion is aneurysmal Apica l anterior LV wall motion is aneurysmal Apical lateral LV wall motion is aneurysmal Apical inferi or LV wall motion is aneurysmal The right ventricle is normal in size and function. LA is moderately dilated 34-39 ml/m2 The right atrium is normal in size. Electronic pacemaker lead seen in the right ventricular cavity. 3 ml of Lumason was utilized for enhancement of images. There is mild aortic valve sclerosis. There is mild aortic regurgitation. There is no evidence of aortic stenosis. The mitral valve leaflets are mildly thickened. There is trace to mild mitral regurgitation. Trace tricuspid regurgitation present. Right ventricular systolic pressure is normal at < 35 mmHg. There is no evidence of pulmonary hypertension. The pulmonic valve was not well visualized. The aortic root size is normal. IVC Not well visulized. There is no pericardial effusion. CONCLUSIONS -------- 1. Sinus rhythm. 2. This was a technically difficult study with suboptimal views. 3. The left ventricular size is normal. 4. There is mild concentric left ventricular hypertrophy. 5. Overall left ventricular systolic function is moderate-severely impaired with, an EF between 30 - 35 %. 6. Mid inferoseptal LV wall motion is aneurysmal 7. Mid anteroseptal LV wall motion is aneurysmal 8. LA is moderately dilated 34-39 ml/m2 9. Electronic pacemaker lead seen in the right ventricular cavity. 10. 3 ml of Lumason was utilized for enhancement of images. 11. There is mild aortic valve sclerosis. 12. There is mild aortic regurgitation. 13. There is no evidence of aortic stenosis. 14. The mitral valve leaflets are mildly thickened. 15. There is trace to mild mitral regurgitation. 16. Trace tricuspid regurgitation present. 17. Right ventricular systolic pressure is normal at < 35 mmHg. 18. There is no evidence of pulmonary hypertension. 19. The pulmonic valve was not well visualized. 20. The aortic root size is normal. 21. IVC Not well visulized. 22. There is no pericardial effusion. FOOD SERVICE DIRECTOR: Michael Lay RDCS
--- NOTE | 2018-02-07 16:27 | P.CRDCN ---
History of Present Illness Consult date: 02/07/18 History of present illness: This is a 81-year-old gentleman with history of coronary artery disease with previous stent placement, ischemic cardiomyopathy and also AICD placement with history of previous shocks, comes here with complaints of recurrent falls. Patient claims he doesn't lose consciousness. He apparently develops weakness in the legs and falls. Patient had a witnessed fall in the hospital without any loss of consciousness. Patient doesn't recall having any shocks from his device. No arrhythmias are detected. Since admission here. Patient also had a cholecystectomy in 2018. His echocardiogram shows severely impaired LV function with apical aneurysm. No postural hypotension his documented in the hospital. It appears that his falls are related to his weakness. We'll continue to monitor him for any arrhythmias. We may also interrogate the device for any arrhythmias. At the time of my examination, patient doesn't appear to be in acute distress Review of Systems As per the chart Past Medical History Past Medical History: Coronary Artery Disease (CAD), Heart Failure, Eye Disorder , GERD/Reflux, GI Bleed, Hyperlipidemia, Hypertension, Myocardial Infarction (LA ), Osteoarthritis (OA), Prostate Disorder, Thyroid Disorder Additional Past Medical History / Comment(s): cardiomyopathy, DENGENERATIVE ARTHRITIS, MACULAR DEGENERATION AND CATARACTS,GI BLEED 2011, fall 11-24-16/ facial inj/bruing/broken front teeth. Last Myocardial Infarction Date:: 1993 History of Any Multi-Drug Resistant Organisms: None Reported Past Surgical History: Adenoidectomy, AICD, Appendectomy, Heart Catheterization , Heart Catheterization With Stent, Joint Replacement, Orthopedic Surgery, Tonsillectomy Additional Past Surgical History / Comment(s): AICD, DFT 04/02/14, TOTAL LT/RT KNEE ARTHROPLASTY, bilateral CATARACTS, bilateral carpal tunnel releases, PARTIAL THYROIDECTOMY due to nodules, trigger fingers. Past Anesthesia/Blood Transfusion Reactions: No Reported Reaction Additional Past Anesthesia/Blood Transfusion Reaction / Comment(s): wakes up during surgery Date of Last Stent Placement:: 1993 Type of Cardiac Device: AICD Device Placement Date:: 2013 Past Psychological History: No Psychological Hx Reported Additional Psychological History / Comment(s): Pt has a grand daughter who they adopted resides with him along with her boyfriend and daughter. He uses a walker at home. He no longer drives, grand daughter takes him places. Smoking Status: Former smoker Past Alcohol Use History: None Reported Additional Past Alcohol Use History / Comment(s): started smoking 1953, quit 1973 smoked 1 ppd. Past Drug Use History: None Reported - Past Family History Son(s) Family Medical History: No Reported History Father Family Medical History: Cancer, Coronary Artery Disease (CAD), CVA/TIA, Diabetes Mellitus Additional Family Medical History / Comment(s): CAROTID ARTERY BLOCKAGE.SX IN 1988 Mother Family Medical History: Unable to Obtain Additional Family Medical History / Comment(s): AT AGE 89- UNK HX Daughter(s) Family Medical History: Cancer (Patient has 2 adopted daughters and he has been under a lot of stress with his adopted daughter whom her left taking her cars with him.) BROTHER Family Medical History: Cancer Additional Family Medical History / Comment(s): BONE, PANCREATIC Medications and Allergies Home Medications Medication Instructions Recorded Confirmed Type Atorvastatin [Lipitor] 80 mg PO HS #30 tab 11/20/13 02/06/18 Rx Clopidogrel [Plavix] 75 mg PO DAILY 03/29/14 02/06/18 History Spironolactone [Aldactone] 25 mg PO DAILY 12/03/16 02/06/18 History Aspirin [Adult Low Dose Aspirin EC] 81 mg PO DAILY 11/16/17 02/06/18 History Vit A/Vit C/Vit E/Zinc/Copper 1 cap PO DAILY 11/16/17 02/06/18 History [ICAPS SOFTGEL] Amiodarone [Cordarone] 200 mg PO DAILY 12/15/17 02/06/18 History Lisinopril [Zestril] 10 mg PO DAILY 12/15/17 02/06/18 History Metoprolol Tartrate [Lopressor] 25 mg PO BID 12/15/17 02/06/18 History Omeprazole [PriLOSEC] 20 mg PO DAILY 12/15/17 02/06/18 History Allergies Allergy/AdvReac Type Severity Reaction Status Date / Time amlodipine besylate Allergy Rash/Hives Verified 02/06/18 18:18 [From Norvasc] isosorbide [From Imdur] Allergy Unknown Verified 02/06/18 18:18 Latex, Natural Rubber Allergy Rash/Hives Verified 02/06/18 18:18 AICD IMPLANT Allergy Unknown Uncoded 02/06/18 17:27 Physical Exam Vitals: Vital Signs Temp Pulse Pulse Resp BP BP BP 02/07/18 15:00 97.7 F 60 14 02/07/18 14:08 143/70 146/81 02/07/18 10:12 98.1 F 65 20 02/07/18 07:25 98.1 F 70 16 02/07/18 00:03 97.2 F L 67 16 02/06/18 20:30 98.1 F 71 18 02/06/18 20:10 97.6 F 71 16 151/76 02/06/18 19:17 70 16 155/80 02/06/18 18:56 69 20 154/80 02/06/18 18:00 68 20 148/74 02/06/18 17:22 97.7 F 74 16 148/74 02/06/18 17:20 BP BP Pulse Ox 02/07/18 15:00 136/73 98 02/07/18 14:08 150/71 02/07/18 10:12 135/73 95 02/07/18 07:25 172/80 94 L 02/07/18 00:03 140/74 93 L 02/06/18 20:30 170/71 98 02/06/18 20:10 97 02/06/18 19:17 96 02/06/18 18:56 96 02/06/18 18:00 97 02/06/18 17:22 96 02/06/18 17:20 97 Intake and Output 02/07/18 02/07/18 02/07/18 06:59 14:59 22:59 Intake Total 118 Output Total 150 200 Balance -150 -82 Intake: Oral 118 Output: Urine 150 200 Other: Voiding Method Urinal # Voids 2 GENERAL EXAM: Patient is alert and oriented and doesn't appear to be in any acute distress HEENT: Normocephalic. Normal reaction of pupils, equal size, normal range of extraocular motion. No erythema or exudates in the throat. NECK: No masses, no nuchal rigidity. CHEST: No chest wall deformity. LUNGS: Equal air entry with no crackles or wheeze. HEART: S1 and S2 normal with no audible mumurs or gallops. Regular rhythm, femorals equal on both sides.. ABDOMEN: No hepatosplenomegaly, normal bowel sounds, no guarding or rigidity. SKIN: No rashes CENTRAL NERVOUS SYSTEM: No focal deficits. EXTREMITIES: No cyanosis, clubbing or edema. Results 02/07/18 09:19 02/07/18 09:19 Cardiac Enzymes 02/06/18 02/06/18 02/07/18 Range/Units 17:29 17:29 09:19 AST 24 20 (17-59) U/L Troponin I 0.013 (0.000-0.034) ng/mL 02/07/18 02/07/18 Range/Units 09:19 14:50 AST (17-59) U/L Troponin I 0.016 0.013 (0.000-0.034) ng/mL Coagulation 02/06/18 Range/Units 17:29 PT 11.4 (9.0-12.0) sec APTT 23.3 (22.0-30.0) sec CBC 02/06/18 02/07/18 Range/Units 17:29 09:19 WBC 5.7 5.1 (3.8-10.6) k/uL RBC 4.18 L 3.82 L (4.30-5.90) m/uL Hgb 13.2 12.0 L (13.0-17.5) gm/dL Hct 40.7 37.3 L (39.0-53.0) % Plt Count 162 159 (150-450) k/uL Comprehensive Metabolic Panel 02/06/18 02/07/18 Range/Units 17:29 09:19 Sodium 140 140 (137-145) mmol/L Potassium 3.8 3.7 (3.5-5.1) mmol/L Chloride 109 H 110 H (98-107) mmol/L Carbon Dioxide 24 23 (22-30) mmol/L BUN 15 14 (9-20) mg/dL Creatinine 0.78 0.74 (0.66-1.25) mg/dL Glucose 110 H 112 H (74-99) mg/dL Calcium 9.7 9.3 (8.4-10.2) mg/dL AST 24 20 (17-59) U/L ALT 28 24 (21-72) U/L Alkaline Phosphatase 95 76 (38-126) U/L Total Protein 6.1 L 5.4 L (6.3-8.2) g/dL Albumin 3.2 L 2.8 L (3.5-5.0) g/dL Current Medications Generic Name Dose Route Start Last Admin Trade Name Freq PRN Reason Stop Dose Admin Amiodarone HCl 200 mg 02/07/18 09:00 02/07/18 08:41 Cordarone PO 200 mg DAILY JONO Administration Aspirin 81 mg 02/07/18 09:00 02/07/18 08:41 Aspirin PO 81 mg DAILY JONO Administration Atorvastatin Calcium 80 mg 02/06/18 21:35 02/06/18 22:30 Lipitor PO 80 mg HS JONO Administration Clopidogrel Bisulfate 75 mg 02/07/18 09:00 02/07/18 08:40 Plavix PO 75 mg DAILY JONO Administration Ceftriaxone Sodium 1,000 mg/ 50 mls @ 100 mls/hr 02/07/18 09:00 02/07/18 10: 08 Sodium Chloride IVPB 100 mls/hr Q24HR JONO Administration Lisinopril 10 mg 02/07/18 09:00 02/07/18 08:40 Zestril PO 10 mg DAILY JONO Administration Metoprolol Tartrate 25 mg 02/06/18 21:45 02/07/18 08:41 Lopressor PO 25 mg BID JONO Administration Naloxone HCl 0.2 mg 02/06/18 19:46 Narcan IV Q2M PRN Opioid Reversal Pantoprazole Sodium 40 mg 02/07/18 07:30 02/07/18 08:40 Protonix PO 40 mg DAILY@0730 JONO Administration Spironolactone 25 mg 02/07/18 09:00 02/07/18 08:40 Aldactone PO 25 mg DAILY JONO Administration Intake and Output 02/07/18 02/07/18 02/07/18 06:59 14:59 22:59 Intake Total 118 Output Total 150 200 Balance -150 -82 Intake: Oral 118 Output: Urine 150 200 Other: Voiding Method Urinal # Voids 2 02/07/18 09:19 02/07/18 09:19 EKG Interpretations (text) Sinus rhythm Assessment and Plan (1) Ischemic cardiomyopathy Current Visit: Yes Status: Acute Code(s): I25.5 - ISCHEMIC CARDIOMYOPATHY SNOMED Code(s): 637776523 (2) Multiple falls Current Visit: Yes Status: Acute Code(s): R29.6 - REPEATED FALLS SNOMED Code(s): 679631637 (3) Chronic systolic CHF (congestive heart failure) Current Visit: Yes Status: Acute Code(s): I50.22 - CHRONIC SYSTOLIC ( CONGESTIVE) HEART FAILURE SNOMED Code(s): 978452799 (4) Cardiac defibrillator in place Current Visit: Yes Status: Acute Code(s): Z95.810 - PRESENCE OF AUTOMATIC ( IMPLANTABLE) CARDIAC DEFIBRILLATOR SNOMED Code(s): 971606526 Plan: His false appear to be noncardiac in nature. We'll continue to monitor him for any arrhythmias. Device will be interrogated
--- NOTE | 2018-02-07 16:44 | XR ---
EXAMINATION TYPE: XR abdomen 1V DATE OF EXAM: 02/07/2018 CLINICAL DATA: 82-year-old male ileitis, [facility] COMPARISON: 11/28/2017 FINDINGS: Supine imaging limited for assessment of free air. Lung bases are not excluded. Degenerated dextrocon vex curvature of the spine. Multiple pelvic phleboliths. Overall possibility of bowel gas limits asse ssment. 6 mm calcification left mid abdomen. Severe degenerative joint space loss weightbearing aspec t of the left hip. IMPRESSION: Nonspecific, overall nonobstructive bowel gas pattern. Paucity of bowel gas limits assessment. 6 mm calcification left mid abdomen could represent a renal calculus.
[2018-02-07] MEDS: ATORVASTATIN 80 MG TAB PO SCH (20:33)
[2018-02-08 07:43] LABS: Basophils # (A) 0.1 k/uL (0-0.2); Basophils % (A) 1 %; Eosinophils # (A) 0.4 k/uL (0-0.7); Eosinophils % (A) 7 %; HCT 37.5 % (39.0-53.0); HGB 12.3 gm/dL (13.0-17.5); Lymphocytes # (A) 1.2 k/uL (1.0-4.8); Lymphocytes % (A) 22 %; MCH 31.9 pg (25.0-35.0); MCHC 32.9 g/dL (31.0-37.0); MCV 96.9 fL (80.0-100.0); Mean Platelet Volume 7.6; Monocytes # (A) 0.4 k/uL (0-1.0); Monocytes % (A) 7 %; Neutrophils # (A) 3.2 k/uL (1.3-7.7); Neutrophils % (A) 60 %; Platelet Count 156 k/uL (150-450); RBC 3.87 m/uL (4.30-5.90); RDW 14.3 % (11.5-15.5); WBC 5.3 k/uL (3.8-10.6)
[2018-02-08 07:55] LABS: ALT 28 U/L (21-72); AST 22 U/L (17-59); Albumin 2.7 g/dL (3.5-5.0); Alkaline Phosphatase 84 U/L (38-126); Anion Gap 6 mmol/L; Blood Urea Nitrogen 13 mg/dL (9-20); Calcium 9.1 mg/dL (8.4-10.2); Carbon Dioxide 23 mmol/L (22-30); Chloride 112 mmol/L (98-107); Glucose 97 mg/dL (74-99); Sodium 141 mmol/L (137-145); Total Bilirubin 1.1 mg/dL (0.2-1.3); Total Protein 5.4 g/dL (6.3-8.2)
[2018-02-08] MEDS: AMIODARONE 200 MG TAB PO SCH (08:25)
[2018-02-08] MEDS: PANTOPRAZOLE 40 MG TABLET PO SCH (08:25)
[2018-02-08] MEDS: ASPIRIN 81 MG PO SCH (08:25)
[2018-02-08] MEDS: LISINOPRIL 10 MG TAB PO SCH (08:26)
[2018-02-08] MEDS: SPIRONOLACTONE 25 MG TAB PO SCH (08:26)
[2018-02-08] MEDS: METOPROLOL TARTRATE 50 MG TAB PO SCH ×2 (08:26→21:31)
[2018-02-08] MEDS: CLOPIDOGREL 75 MG TAB PO SCH (08:26)
--- NOTE | 2018-02-08 12:42 | P.PN ---
Subjective Progress Note Date: 02/08/18 This is a 81-year-old gentleman with history of a previous stent placement. Ischemic cardio myopathy and AICD placement who was admitted to the hospital with the recurrent falls. No documented loss of consciousness. Apparently he was very weak in his legs and falling. So far no arrhythmias are documented in the hospital. Patient had a witnessed fall and associated with any cardiac arrhythmias or loss of consciousness. Today he is feeling stronger. We'll continue current management. We will evaluate the device tomorrow. Objective - Vital Signs Vital signs: Vital Signs Temp 97.9 F 02/08/18 07:00 Pulse 63 02/08/18 00:57 Resp 17 02/08/18 07:00 BP 150/75 02/08/18 07:00 Pulse Ox 96 02/08/18 07:00 Intake & Output 02/07/18 02/08/18 02/08/18 18:59 06:59 18:59 Intake Total 118 220 Output Total 200 300 200 Balance -82 -80 -200 Intake: Oral 118 220 Output: Urine 200 300 200 Other: Voiding Method Urinal Urinal Urinal # Voids 2 - Exam GENERAL EXAM: Patient is alert and oriented and doesn't appear to be in any acute distress. Very hard of hearing HEENT: Normocephalic. Normal reaction of pupils, equal size, normal range of extraocular motion. No erythema or exudates in the throat. NECK: No masses, no nuchal rigidity. CHEST: No chest wall deformity. LUNGS: Equal air entry with no crackles or wheeze. HEART: S1 and S2 normal with no audible mumurs or gallops. Regular rhythm, femorals equal on both sides.. ABDOMEN: No hepatosplenomegaly, normal bowel sounds, no guarding or rigidity. SKIN: No rashes CENTRAL NERVOUS SYSTEM: No focal deficits. EXTREMITIES: No cyanosis, clubbing or edema. - Labs CBC & Chem 7: 02/08/18 06:59 02/08/18 06:59 Labs: Abnormal Lab Results - Last 24 Hours (Table) 02/08/18 02/08/18 Range/Units 06:59 06:59 RBC 3.87 L (4.30-5.90) m/uL Hgb 12.3 L (13.0-17.5) gm/dL Hct 37.5 L (39.0-53.0) % Chloride 112 H (98-107) mmol/L Total Protein 5.4 L (6.3-8.2) g/dL Albumin 2.7 L (3.5-5.0) g/dL Assessment and Plan (1) Ischemic cardiomyopathy Current Visit: Yes Status: Acute Code(s): I25.5 - ISCHEMIC CARDIOMYOPATHY SNOMED Code(s): 320190093 (2) Multiple falls Current Visit: Yes Status: Acute Code(s): R29.6 - REPEATED FALLS SNOMED Code(s): 449193746 (3) Chronic systolic CHF (congestive heart failure) Current Visit: Yes Status: Acute Code(s): I50.22 - CHRONIC SYSTOLIC ( CONGESTIVE) HEART FAILURE SNOMED Code(s): 489700014 (4) Cardiac defibrillator in place Current Visit: Yes Status: Acute Code(s): Z95.810 - PRESENCE OF AUTOMATIC ( IMPLANTABLE) CARDIAC DEFIBRILLATOR SNOMED Code(s): 033839289 Plan: Patient is clinically stable, so far. No arrhythmias are documented. No postural hypotension. However feeling stronger. We'll evaluate device tomorrow
--- NOTE | 2018-02-08 15:16 | P.PN ---
Subjective Progress Note Date: 02/08/18 This is an 82-year-old male one of Dr. 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 History of partial thyroidectomy Patient was admitted in February 2016 for dizziness and subsequently his ICD fired first time and it did fire again the second time V. fib V. tach was detected. ICD was interrogated and adjusted from 25-35 J. Last admission in 2016 for hyponatremia. Last admitted in November 2017 for pancreatitis secondary to gallstones with cholecystitis and ascending cholangitis it is post cholecystectomy by Dr. Pulido. Patient was also noted to be in V. fib and V. tach, Echocardiogram was obtained which suggested EF of 25-30% with severe global hypokinesia. Patient comes in today with multiple falls that started 3 days ago. Has history of cervical fracture for which patient is wearing the neck collar. Patient is complaining of increased weakness on evaluation in the ER vitals evaluated suggested temp of 97.2 heart rate 67 respiratory rate 16 blood pressure 140/74 saturating well on room air at 93%. Patient did give a history of some bloating and upper abdominal pain but denies any history of nausea, vomiting or diarrhea no dark stools or melena. He denies any chest pain or shortness of breath denies any palpitation or history of AICD firing. His echocardiogram obtained during the last visit in November 2017 suggest EF of 20- 25%. Labs obtained marketable CBC and a CMP with a urinalysis suggestive of infection. Urine culture ordered. Patient initiated on Rocephin 1 g every 24 hours. Orthostatics will be obtained BNP is 1900 non-suggestive of CHF exacerbation. Cardiology evaluation to rule out cardiogenic syncope. Orthostatics ordered to rule out orthostatic hypotension 02/08 patient feels weak and lethargic unable to come out of bed. Completed 25 % of meal this morning. He denies any dizziness lightheadedness. Denies any nausea vomiting does endorse bloating and upper abdominal pain. He does have history of constipation we'll initiate MiraLAX and Colace. We'll get abdominal x-ray to rule out any obstruction or ileus ROS Constitutional: Denies chills, Denies fever, Denies lethargy, Denies malaise, Denies poor appetite, Denies weakness, Denies weight loss Cardiovascular: Denies chest pain, Denies decreased exercise tolerance, Denies edema, Denies high blood pressure, Denies irregular heart beat, Denies palpitations, Denies paroxysmal nocturnal dyspnea, Denies rapid heart beat, Denies shortness of breath Respiratory: Denies congestion, Denies cough, Denies cough with sputum, Denies dyspnea, Denies home oxygen, Denies wheezing Gastrointestinal: endorses abdominal pain, Denies change in bowel habits, Denies coffee ground emesis, Denies early satiety, Denies excessive gas, Denies heartburn, Denies hematemesis, Denies hematochezia, Denies loss of appetite, Denies nausea, Denies vomiting Genitourinary: Denies dysuria, Denies flank pain, Denies kidney stones, Denies menorrhagia, Denies urgency, Denies urinary frequency Musculoskeletal: Denies gait dysfunction, Denies limitation of motion, Denies morning stiffness, Denies muscle cramps, limited neck mobility with neck collar Integumentary: Denies rash, Denies wounds, Denies brittle nails, Denies change in hair/nails, Denies darkening of skin Neurological: Denies balance difficulties, Denies change in speech, Denies double vision, Denies gait dysfunction, Denies loss of vision, Denies motor disturbance, Denies numbness, Denies paralysis, Denies paresthesias, Denies seizures Psychiatric: Denies anxiety, Denies depression Endocrine: Denies excessive sweating, Denies excessive thirst, Denies high blood sugars, Denies palpitations Hematologic/Lymphatic: Denies easy bruising, Denies lymphadenopathy Objective - Vital Signs Vital signs: Vital Signs Temp 97.9 F 02/08/18 07:00 Pulse 63 02/08/18 00:57 Resp 17 02/08/18 07:00 BP 150/75 02/08/18 07:00 Pulse Ox 96 02/08/18 07:00 Intake & Output 02/07/18 02/08/18 02/08/18 18:59 06:59 18:59 Intake Total 118 220 Output Total 200 300 200 Balance -82 -80 -200 Intake: Oral 118 220 Output: Urine 200 300 200 Other: Voiding Method Urinal Urinal Urinal # Voids 2 1 - Exam - Constitutional General appearance: cooperative, no acute distress, obese - EENT Eyes: anicteric sclerae, PERRLA, normal appearance ENT: hearing grossly normal - Neck Neck: decreased ROM with neck collar - Respiratory Respiratory: bilateral: CTA, negative: diminished, dullness, rales, rhonchi - Cardiovascular Rhythm: regular Heart sounds: normal: S1, S2 Abnormal Heart Sounds: no systolic murmur, no diastolic murmur, no rub, no S3 Gallop, no S4 Gallop, no click, no other - Gastrointestinal General gastrointestinal: normal bowel sounds, soft, tende upper quad - Integumentary Integumentary: no rash - Neurologic Neurologic: CNII-XII intact - Musculoskeletal Musculoskeletal: gait not assessed , strength equal bilaterally - Psychiatric Psychiatric: A&O x's 3, appropriate affect - Labs CBC & Chem 7: 02/08/18 06:59 02/08/18 06:59 Labs: Abnormal Lab Results - Last 24 Hours (Table) 02/08/18 02/08/18 Range/Units 06:59 06:59 RBC 3.87 L (4.30-5.90) m/uL Hgb 12.3 L (13.0-17.5) gm/dL Hct 37.5 L (39.0-53.0) % Chloride 112 H (98-107) mmol/L Total Protein 5.4 L (6.3-8.2) g/dL Albumin 2.7 L (3.5-5.0) g/dL Assessment and Plan Plan: 1. Multiple falls likely secondary to dehydration and acute UTI. We will start patient on slow hydration with and is at 50 mL/h. Watch input and output. Rocephin 1 g every 24 hours urine culture pending. Doubt cardiogenic syncope as patient did not lose any consciousness. Patient has a significant history of ischemic cardiomyopathy cardiology ruled out cardiogenic syncope will interrogate the pacemaker 2 history of cholecystitis Status post lap cholecystectomy on November 22 3. History of Acute pancreatitis secondary to gallstones. 4. h/o V. fib/V. tach - Continue amiodarone 200 mg po daily 5. CAD post MT with cardiac arrest status post PCI back in 2013. Continue metoprolol 25 mg orally twice every day, amlodipine 12.5 mg by mouth daily, lisinopril 5 mg by mouth daily, aspirin 81 mg orally once every day continue Plavix 75 mg by mouth daily 6. Hyperlipidemia. Continue patient on low-cholesterol diet. 7. Hypertension. Continue metoprolol 25 mg orally twice every day, Imuran drawn 12.5 mg by mouth daily, lisinopril 5 mg by mouth daily 8. Post partial thyroidectomy. 9. AMD. Stable at this point in time. 10. History of PUD. Continue Protonix 40 mg orally once every day. 11. Osteoarthritis. Stable. 12. Ischemic cardiomyopathy s/p AICD Stable at this time ejection fraction similar to the previous echo 13. DVT prophylaxis. Lovenox 40 mg subcutaneously every 24 hours. 14. GI prophylaxis. Protonix 40 mg orally once every day. 15. Medical debility. The patient will need to go for subacute rehabilitationPT OT 15 abdominal pain likely secondary to constipation Colace and MiraLAX initiated abdominal x-ray to rule out PE is
--- NOTE | 2018-02-08 16:36 | XR ---
EXAMINATION TYPE: XR abdomen 1V DATE OF EXAM: 02/08/2018 COMPARISON: Yesterday HISTORY: Abdominal distention TECHNIQUE: 2 views upright FINDINGS: There is no sign of free air. There is fairly normal small bowel and large bowel gas patter n. There is no evidence of a mass. There is 4 mm calcification over the left kidney. Lung bases are c lear. IMPRESSION: There is more intestinal gas than exam yesterday. No mechanical obstruction seen.
--- NOTE | 2018-02-08 19:21 | CT ---
EXAMINATION TYPE: CT brain wo con DATE OF EXAM: 02/08/2018 COMPARISON: November 16, 2017 HISTORY: stroke symptoms CT DLP: 1126.4 mGycm Automated exposure control for dose reduction was used. FINDINGS: There is cerebral cortical atrophy. There is moderate patchy hypodensity in the periventricular white matter. There is no mass effect nor midline shift. There is no sign of intracranial hemorrhage. The calvarium is intact. IMPRESSION: MODERATE ATROPHY AND CHRONIC SMALL VESSEL ISCHEMIA. NO ACUTE INTRACRANIAL ABNORMALITY. NO CHANGE.
--- NOTE | 2018-02-08 21:27 | P.CNNES ---
History of Present Illness Consult date: 02/08/18 Reason for Consult: Patient being evaluated for stroke like symptoms. History of Present Illness: This consultation was notified to Dr. Nasrin Alicia on 02/08/2018 at 7 PM. Consultation is requested by Dr. Morales for evaluation of stroke like symptoms. This patient is a 82-year-old right-handed white male who was admitted to [facility] on 02/07/2018 for symptoms of multiple falls. Apparently for the past 3 or 4 days prior to admission he was having increase weakness and falls at home. He has a history of cervical fracture which has been evaluated in the orthopedic spine surgery clinic and he was prescribed a hard cervical collar which she continues to wear and will have follow-up with orthopedic surgeon on February 19. Patient had a rather extensive recent admission in November for treatment of hyponatremia and pancreatitis and gallstones. He was in the hospital for over a month and was sent to subacute rehab at [facility]. He wasn't discharged home and then subsequently was seen by his chiropractor who diagnosed him as having cervical fracture. This led to his orthopedic consultation and placement of his cervical hard collar. The patient has been having falls of unclear etiology. He was admitted on this admission for possible dehydration and acute urinary tract infection. He is currently receiving antibiotic treatment with Rocephin. Apparently today the family notices slight changes in him with some facial asymmetry and concern for possible stroke like symptoms. He was sent for a urgent computed tomography scan of the brain this evening which was completed and reviewed. CAT scan reveals moderate atrophy and chronic small vessel ischemia. No acute intracranial abnormality or change compared to her previous CAT scan done on 12-02 was identified. We reviewed the results of this CAT scan this evening with the patient as well as his son who is at bedside. There were pleased to find out there was no evidence of acute stroke on this CAT scan. Patient states his symptoms has been mostly generalized weakness which has been causing him the falls. He is being evaluated by cardiology for history of severe ischemic cardiomyopathy and AICD placement. His recent falls and not accompanied by any loss of consciousness. As far as he is recollection he has not had any AICD device go off with any of these episodes. Cardiology is evaluating the patient to rule out any possibility of cardiac arrhythmias or device malfunction. They may be interrogating his AICD device as well. Patient does have some difficulty with speech which is due most likely to dryness in his mouth. He has only slight facial asymmetry on the left. Once again his CAT scan of the brain completed today fails to reveal any evidence of acute stroke. He is unable to go for MRI of the brain for further evaluation given his AICD device implantation. The patient appears to be stable at this time and does not appear to be in any acute distress. He denies any headache symptoms or new evidence of focal weakness. He is being treated for dehydration and urinary tract infection which may be contributing to his generalized weakness. He will most likely require subacute rehabilitation at the time of discharge. We will continue to follow his progress closely during this admission. According to his nurse who is caring for him this evening the patient has not shown any acute evidence of stroke. His NIH stroke scale was documented by the nurses being 0. He has not appreciated any strokelike symptoms. We did review the results of the CAT scan with the patient and his son at bedside and they were relieved that there was no evidence of acute stroke based on this CAT scan result today. The patient should be evaluated for possibility of orthostatic hypotension. Cardiology is following him as well. We will reevaluate the patient tomorrow to monitor for any further changes in his neurological exam findings. Neurology is now been consulted urgently today for further evaluation and recommendations. Review of Systems Constitutional: Denies chills, Denies fever Eyes: denies blurred vision, denies pain Ears, nose, mouth and throat: Denies headache, Denies sore throat Cardiovascular: Denies chest pain, Denies shortness of breath Respiratory: Denies cough Gastrointestinal: Denies abdominal pain, Denies diarrhea, Denies nausea, Denies vomiting Musculoskeletal: Denies myalgias Integumentary: Denies pruritus, Denies rash Neurological: Reports confusion, Reports paresthesias, Denies numbness, Denies weakness Psychiatric: Denies anxiety, Denies depression Endocrine: Denies fatigue, Denies weight change Past Medical History Past Medical History: Coronary Artery Disease (CAD), Heart Failure, Eye Disorder , GERD/Reflux, GI Bleed, Hyperlipidemia, Hypertension, Myocardial Infarction (DE ), Osteoarthritis (OA), Prostate Disorder, Thyroid Disorder Additional Past Medical History / Comment(s): cardiomyopathy, DENGENERATIVE ARTHRITIS, MACULAR DEGENERATION AND CATARACTS,GI BLEED 2011, fall 11-24-16/ facial inj/bruing/broken front teeth. Last Myocardial Infarction Date:: 1993 History of Any Multi-Drug Resistant Organisms: None Reported Past Surgical History: Adenoidectomy, AICD, Appendectomy, Heart Catheterization , Heart Catheterization With Stent, Joint Replacement, Orthopedic Surgery, Tonsillectomy Additional Past Surgical History / Comment(s): AICD, DFT 04/02/14, TOTAL LT/RT KNEE ARTHROPLASTY, bilateral CATARACTS, bilateral carpal tunnel releases, PARTIAL THYROIDECTOMY due to nodules, trigger fingers. Past Anesthesia/Blood Transfusion Reactions: No Reported Reaction Additional Past Anesthesia/Blood Transfusion Reaction / Comment(s): wakes up during surgery Date of Last Stent Placement:: 1993 Type of Cardiac Device: AICD Device Placement Date:: 2013 Past Psychological History: No Psychological Hx Reported Additional Psychological History / Comment(s): Pt has a grand daughter who they adopted resides with him along with her boyfriend and daughter. He uses a walker at home. He no longer drives, grand daughter takes him places. Smoking Status: Former smoker Past Alcohol Use History: None Reported Additional Past Alcohol Use History / Comment(s): started smoking 1953, quit 1973 smoked 1 ppd. Past Drug Use History: None Reported - Past Family History Son(s) Family Medical History: No Reported History Father Family Medical History: Cancer, Coronary Artery Disease (CAD), CVA/TIA, Diabetes Mellitus Additional Family Medical History / Comment(s): CAROTID ARTERY BLOCKAGE.SX IN 1988 Mother Family Medical History: Unable to Obtain Additional Family Medical History / Comment(s): AT AGE 89- UNK HX Daughter(s) Family Medical History: Cancer (Patient has 2 adopted daughters and he has been under a lot of stress with his adopted daughter whom her left taking her cars with him.) BROTHER Family Medical History: Cancer Additional Family Medical History / Comment(s): BONE, PANCREATIC Medications and Allergies Home Medications Medication Instructions Recorded Confirmed Type Atorvastatin [Lipitor] 80 mg PO HS #30 tab 11/20/13 02/06/18 Rx Clopidogrel [Plavix] 75 mg PO DAILY 03/29/14 02/06/18 History Spironolactone [Aldactone] 25 mg PO DAILY 12/03/16 02/06/18 History Aspirin [Adult Low Dose Aspirin EC] 81 mg PO DAILY 11/16/17 02/06/18 History Vit A/Vit C/Vit E/Zinc/Copper 1 cap PO DAILY 11/16/17 02/06/18 History [ICAPS SOFTGEL] Amiodarone [Cordarone] 200 mg PO DAILY 12/15/17 02/06/18 History Lisinopril [Zestril] 10 mg PO DAILY 12/15/17 02/06/18 History Metoprolol Tartrate [Lopressor] 25 mg PO BID 12/15/17 02/06/18 History Omeprazole [PriLOSEC] 20 mg PO DAILY 12/15/17 02/06/18 History Allergies Allergy/AdvReac Type Severity Reaction Status Date / Time amlodipine besylate Allergy Rash/Hives Verified 02/06/18 18:18 [From Norvasc] isosorbide [From Imdur] Allergy Unknown Verified 02/06/18 18:18 Latex, Natural Rubber Allergy Rash/Hives Verified 02/06/18 18:18 AICD IMPLANT Allergy Unknown Uncoded 02/06/18 17:27 Physical Examination - Vital Signs Vital Signs: Vital Signs Temp Pulse Resp BP BP BP Pulse Ox 02/08/18 15:57 97.6 F 63 18 126/80 96 02/08/18 07:00 97.9 F 17 150/75 96 02/08/18 00:57 98.0 F 63 16 134/65 92 L Intake and Output 02/08/18 02/08/18 02/08/18 06:59 14:59 22:59 Output Total 200 200 Balance -200 -200 Output: Urine 200 200 Other: Voiding Method Urinal Urinal # Voids 1 - Constitutional General appearance: average body habitus, cooperative - EENT EENT: PERRL, mucous membranes moist - Respiratory Respiratory: lungs clear, normal breath sounds - Cardiovascular Cardiovascular: regular rate, normal S1, normal S2 Extremities: no peripheral edema bilaterally - Gastrointestinal Gastrointestinal: normoactive bowel sounds - Integumentary Integumentary: normal - Neurologic Cranial nerve examination: PERRL, EOMI, VFF, V1/V2/V3 grossly intact, face symmetric, intact gag reflex, intact corneal reflex, normal palatal elevation Speech examination: intact Sensorimotor examination: intact Motor examination - right side: 4/5: biceps, triceps, wrist flexion, wrist extension, field court researcher, hip flexors, knee extensors, dorsiflexion, toe extension (EHL) , plantarflexion Motor examination - left side: 4/5: biceps, triceps, wrist flexion, wrist extension, field court researcher, hip flexors, knee extensors, dorsiflexion, toe extension (EHL) , plantarflexion Detailed sensory examination: intact Reflex and gait examination: intact Reflexes: 1+: ankle, bicep, knee, tricep - Musculoskeletal Musculoskeletal: no pain - Psychiatric Psychiatric: mood/affect appropriate, cooperative Results - Laboratory Findings CBC and BMP: 02/08/18 06:59 02/08/18 06:59 Abnormal Lab Findings: Abnormal Labs 02/06/18 02/06/18 02/06/18 17:29 17:29 18:19 RBC 4.18 L Hgb Hct Lymphocytes # 0.8 L Chloride 109 H Glucose 110 H Total Protein 6.1 L Albumin 3.2 L Urine Protein 1+ H Urine Blood Large H Ur Leukocyte Esterase Trace H Urine RBC >182 H Urine WBC 7 H Amorphous Sediment Few H Urine Mucus Many H 02/07/18 02/07/18 02/08/18 09:19 09:19 06:59 RBC 3.82 L 3.87 L Hgb 12.0 L 12.3 L Hct 37.3 L 37.5 L Lymphocytes # Chloride 110 H Glucose 112 H Total Protein 5.4 L Albumin 2.8 L Urine Protein Urine Blood Ur Leukocyte Esterase Urine RBC Urine WBC Amorphous Sediment Urine Mucus 02/08/18 06:59 RBC Hgb Hct Lymphocytes # Chloride 112 H Glucose Total Protein 5.4 L Albumin 2.7 L Urine Protein Urine Blood Ur Leukocyte Esterase Urine RBC Urine WBC Amorphous Sediment Urine Mucus Assessment and Plan (1) Ischemic cardiomyopathy Current Visit: Yes Status: Acute Code(s): I25.5 - ISCHEMIC CARDIOMYOPATHY SNOMED Code(s): 706802418 (2) History of implantable cardioverter-defibrillator (ICD) placement Current Visit: Yes Status: Acute Code(s): Z95.810 - PRESENCE OF AUTOMATIC ( IMPLANTABLE) CARDIAC DEFIBRILLATOR SNOMED Code(s): 390865707 (3) Multiple falls Current Visit: Yes Status: Acute Code(s): R29.6 - REPEATED FALLS SNOMED Code(s): 840554119 (4) Cervical compression fracture Current Visit: Yes Status: Acute Code(s): S12.9XXA - FRACTURE OF NECK, UNSPECIFIED, INITIAL ENCOUNTER SNOMED Code(s): 400963815 (5) Chronic systolic CHF (congestive heart failure) Current Visit: Yes Status: Acute Code(s): I50.22 - CHRONIC SYSTOLIC ( CONGESTIVE) HEART FAILURE SNOMED Code(s): 471984215 (6) Dehydration Current Visit: No Status: Acute Code(s): E86.0 - DEHYDRATION SNOMED Code(s ): 12934240 (7) Weakness Current Visit: No Status: Acute Code(s): R53.1 - WEAKNESS SNOMED Code(s): 93718711 Plan: This patient is a 82-year-old male who was admitted to hospital for symptoms of multiple falls and generalized weakness. He has a known history of severe ischemic cardiomyopathy. He has a known history of chronic systolic congestive heart failure as well. Patient has been having generalized weakness with falls at home prior to his admission. There was concern for question of stroke today and neurology was consulted for further evaluation. Patient was sent for a computed tomography scan of the brain on 02/08/2018 the results of which are noted above. CAT scan of the brain revealed moderate atrophy and chronic small vessel ischemic changes with no acute intracranial abnormality noted. We reviewed the results of the CAT scan today with the patient and his son was at bedside. There was concern he may have some new findings but no evidence on CAT scan if any acute findings for acute stroke. He is being treated for urinary tract infection and dehydration which may be more likely cause of his generalized weakness. He does have general medical debility and will require subacute rehab at the time of his discharge. His neurological examination reveals minimal facial asymmetry otherwise no focal motor deficit. His speech is clear and does not show any evidence of significant aphasia. He does have a cervical collar in place which is making it difficult to position his head and neck region properly. He is unable to go for MRI of the brain due to his AICD placement. We will continue to follow him closely for any further changes in his neurological status. We would recommend to continue with physical therapy evaluation and possible subacute rehab placement for this patient at the time of discharge. Would recommend to check for orthostatic hypotension in this patient as well. We will continue to follow his progress closely during this admission. This case was discussed at length with the patient and his son at bedside. All their questions were answered. They are aware of his guarded condition. We will continue close neurological follow-up for the patient during this admission. Time with Patient: Greater than 30
[2018-02-08] MEDS: ATORVASTATIN 80 MG TAB PO SCH (21:30)
[2018-02-08] MEDS: DOCUSATE 100 MG CAP PO SCH (21:30)
[2018-02-09 08:14] LABS: Basophils # (A) 0.1 k/uL (0-0.2); Basophils % (A) 1 %; Eosinophils # (A) 0.6 k/uL (0-0.7); Eosinophils % (A) 8 %; HCT 38.3 % (39.0-53.0); HGB 12.2 gm/dL (13.0-17.5); Lymphocytes # (A) 1.1 k/uL (1.0-4.8); Lymphocytes % (A) 17 %; MCV 96.8 fL (80.0-100.0); Mean Platelet Volume 7.8; Monocytes # (A) 0.4 k/uL (0-1.0); Monocytes % (A) 6 %; Neutrophils # (A) 4.3 k/uL (1.3-7.7); Neutrophils % (A) 65 %; Platelet Count 155 k/uL (150-450); RBC 3.95 m/uL (4.30-5.90); RDW 14.1 % (11.5-15.5); WBC 6.7 k/uL (3.8-10.6)
[2018-02-09 08:39] LABS: ALT 26 U/L (21-72); AST 22 U/L (17-59); Albumin 2.7 g/dL (3.5-5.0); Alkaline Phosphatase 97 U/L (38-126); Anion Gap 4 mmol/L; Blood Urea Nitrogen 13 mg/dL (9-20); Carbon Dioxide 23 mmol/L (22-30); Chloride 111 mmol/L (98-107); Glucose 96 mg/dL (74-99); Potassium 3.9 mmol/L (3.5-5.1); Sodium 138 mmol/L (137-145); Total Bilirubin 1.1 mg/dL (0.2-1.3); Total Protein 5.4 g/dL (6.3-8.2)
[2018-02-09] MEDS: CLOPIDOGREL 75 MG TAB PO SCH (09:54)
[2018-02-09] MEDS: PANTOPRAZOLE 40 MG TABLET PO SCH (09:54)
[2018-02-09] MEDS: METOPROLOL TARTRATE 50 MG TAB PO SCH ×2 (09:54→22:12)
[2018-02-09] MEDS: ASPIRIN 81 MG PO SCH (09:54)
[2018-02-09] MEDS: LISINOPRIL 10 MG TAB PO SCH (09:54)
[2018-02-09] MEDS: SPIRONOLACTONE 25 MG TAB PO SCH (09:55)
[2018-02-09] MEDS: AMIODARONE 200 MG TAB PO SCH (09:55)
[2018-02-09] MEDS: POLYETHYLENE GLYCOL 3350 17 GM POWD.PACK PO SCH (09:55)
[2018-02-09] MEDS: DOCUSATE 100 MG CAP PO SCH ×2 (10:21→22:12)
[2018-02-09] MEDS: ACETAMINOPHEN TAB 325 MG TAB PO PRN (12:58)
--- NOTE | 2018-02-09 14:13 | P.PN ---
Subjective Progress Note Date: 02/09/18 This is an 82-year-old male one of Dr. 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 History of partial thyroidectomy Patient was admitted in February 2016 for dizziness and subsequently his ICD fired first time and it did fire again the second time V. fib V. tach was detected. ICD was interrogated and adjusted from 25-35 J. Last admission in 2016 for hyponatremia. Last admitted in November 2017 for pancreatitis secondary to gallstones with cholecystitis and ascending cholangitis it is post cholecystectomy by Dr. Pulido. Patient was also noted to be in V. fib and V. tach, Echocardiogram was obtained which suggested EF of 25-30% with severe global hypokinesia. Patient comes in today with multiple falls that started 3 days ago. Has history of cervical fracture for which patient is wearing the neck collar. Patient is complaining of increased weakness on evaluation in the ER vitals evaluated suggested temp of 97.2 heart rate 67 respiratory rate 16 blood pressure 140/74 saturating well on room air at 93%. Patient did give a history of some bloating and upper abdominal pain but denies any history of nausea, vomiting or diarrhea no dark stools or melena. He denies any chest pain or shortness of breath denies any palpitation or history of AICD firing. His echocardiogram obtained during the last visit in November 2017 suggest EF of 20- 25%. Labs obtained marketable CBC and a CMP with a urinalysis suggestive of infection. Urine culture ordered. Patient initiated on Rocephin 1 g every 24 hours. Orthostatics will be obtained BNP is 1900 non-suggestive of CHF exacerbation. Cardiology evaluation to rule out cardiogenic syncope. Orthostatics ordered to rule out orthostatic hypotension 02/08 patient feels weak and lethargic unable to come out of bed. Completed 25 % of meal this morning. He denies any dizziness lightheadedness. Denies any nausea vomiting does endorse bloating and upper abdominal pain. He does have history of constipation we'll initiate MiraLAX and Colace. We'll get abdominal x-ray to rule out any obstruction or ileus 02/09 patient is sitting in the chair. Did have a event last night where family noticed slurring of speech. CT head was ordered with no acute intracranial findings. Neurology evaluated the patient and does not suspect stroke. Orthostatics were negative. Patient generalized weakness is likely secondary to UTI. Continue antibiotics. Urine culture was not sent on admission. Ordered urine culture. PTOT evaluation pending ROS Constitutional: Denies chills, Denies fever, endorses lethargy, Denies malaise , Denies poor appetite, in endorses weakness, Denies weight loss Cardiovascular: Denies chest pain, Denies decreased exercise tolerance, Denies edema, Denies high blood pressure, Denies irregular heart beat, Denies palpitations, Denies paroxysmal nocturnal dyspnea, Denies rapid heart beat, Denies shortness of breath Respiratory: Denies congestion, Denies cough, Denies cough with sputum, Denies dyspnea, Denies home oxygen, Denies wheezing Gastrointestinal: endorses abdominal pain, Denies change in bowel habits, Denies coffee ground emesis, Denies early satiety, Denies excessive gas, Denies heartburn, Denies hematemesis, Denies hematochezia, Denies loss of appetite, Denies nausea, Denies vomiting Genitourinary: Denies dysuria, Denies flank pain, Denies kidney stones, Denies menorrhagia, Denies urgency, Denies urinary frequency Musculoskeletal: Denies gait dysfunction, Denies limitation of motion, Denies morning stiffness, Denies muscle cramps, limited neck mobility with neck collar Integumentary: Denies rash, Denies wounds, Denies brittle nails, Denies change in hair/nails, Denies darkening of skin Neurological: Denies balance difficulties, Denies change in speech, Denies double vision, Denies gait dysfunction, Denies loss of vision, Denies motor disturbance, Denies numbness, Denies paralysis, Denies paresthesias, Denies seizures Psychiatric: Denies anxiety, Denies depression Endocrine: Denies excessive sweating, Denies excessive thirst, Denies high blood sugars, Denies palpitations Hematologic/Lymphatic: Denies easy bruising, Denies lymphadenopathy Objective - Vital Signs Vital signs: Vital Signs Temp 98.5 F 02/09/18 09:42 Pulse 67 02/09/18 09:42 Resp 16 02/09/18 09:42 BP 143/72 02/09/18 09:42 Pulse Ox 94 L 02/09/18 09:42 Intake & Output 02/08/18 02/09/18 02/09/18 18:59 06:59 18:59 Intake Total 120 Output Total 200 450 Balance -200 -450 120 Intake: Oral 120 Output: Urine 200 450 Other: Voiding Method Urinal Urinal # Voids 1 - Exam - Constitutional General appearance: cooperative, no acute distress, obese - EENT Eyes: anicteric sclerae, PERRLA, normal appearance ENT: hearing grossly normal - Neck Neck: decreased ROM with neck collar - Respiratory Respiratory: bilateral: CTA, negative: diminished, dullness, rales, rhonchi - Cardiovascular Rhythm: regular Heart sounds: normal: S1, S2 Abnormal Heart Sounds: no systolic murmur, no diastolic murmur, no rub, no S3 Gallop, no S4 Gallop, no click, no other - Gastrointestinal General gastrointestinal: normal bowel sounds, soft, tende upper quad improved - Integumentary Integumentary: no rash - Neurologic Neurologic: CNII-XII intact - Musculoskeletal Musculoskeletal: gait not assessed , strength equal bilaterally - Psychiatric Psychiatric: A&O x's 3, appropriate affect - Labs CBC & Chem 7: 02/09/18 06:43 02/09/18 06:43 Labs: Abnormal Lab Results - Last 24 Hours (Table) 02/09/18 02/09/18 Range/Units 06:43 06:43 RBC 3.95 L (4.30-5.90) m/uL Hgb 12.2 L (13.0-17.5) gm/dL Hct 38.3 L (39.0-53.0) % Chloride 111 H (98-107) mmol/L Total Protein 5.4 L (6.3-8.2) g/dL Albumin 2.7 L (3.5-5.0) g/dL Assessment and Plan Plan: 1. Multiple falls likely secondary to dehydration and acute UTI. We will start patient on slow hydration with and is at 50 mL/h. Watch input and output. Rocephin 1 g every 24 hours urine culture pending. Doubt cardiogenic syncope as patient did not lose any consciousness. Patient has a significant history of ischemic cardiomyopathy cardiology ruled out cardiogenic syncope will interrogate the pacemaker 2 history of cholecystitis Status post lap cholecystectomy on November 22 3. History of Acute pancreatitis secondary to gallstones. 4. h/o V. fib/V. tach - Continue amiodarone 200 mg po daily 5. CAD post VT with cardiac arrest status post PCI back in 2013. Continue metoprolol 25 mg orally twice every day, amlodipine 12.5 mg by mouth daily, lisinopril 5 mg by mouth daily, aspirin 81 mg orally once every day continue Plavix 75 mg by mouth daily 6. Hyperlipidemia. Continue patient on low-cholesterol diet. 7. Hypertension. Continue metoprolol 25 mg orally twice every day, Imuran drawn 12.5 mg by mouth daily, lisinopril 5 mg by mouth daily 8. Post partial thyroidectomy. 9. AMD. Stable at this point in time. 10. History of PUD. Continue Protonix 40 mg orally once every day. 11. Osteoarthritis. Stable. 12. Ischemic cardiomyopathy s/p AICD Stable at this time ejection fraction similar to the previous echo 13. DVT prophylaxis. Lovenox 40 mg subcutaneously every 24 hours. 14. GI prophylaxis. Protonix 40 mg orally once every day. 15. Medical debility. The patient will need to go for subacute rehabilitationPT OT 15 abdominal pain likely secondary to constipation Colace and MiraLAX initiated abdominal x-ray to rule out impaction
--- NOTE | 2018-02-09 19:15 | P.PN ---
Subjective Progress Note Date: 02/09/18 Patient seen in Neurology follow-up today for evaluation of generalized weakness and TIA like symptoms last night. The patient is doing much better today. He is sitting up in the chair and talking on the telephone. His son and [id number] were at bedside and they were updated on all of his recent neurological findings. Patient clearly seems to be doing better today in terms of his mental status and strength. He is being considered for discharge tomorrow to [facility] for ongoing subacute rehab. His generalized weakness is likely multifactorial in nature and a big contribution from his recent urinary tract infection and dehydration. He has no evidence to suggest cardiogenic syncope at this time. Would recommend strongly that he consider subacute rehab at least for 1-2 weeks following discharge. The patient otherwise seems to be doing quite well and shows improvement in his mental status today as compared to yesterday as well. We will continue close neurological follow-up of this patient during this admission. Objective - Vital Signs Vital signs: Vital Signs Temp 98.5 F 02/09/18 09:42 Pulse 67 02/09/18 09:42 Resp 16 02/09/18 09:42 BP 143/72 02/09/18 09:42 Pulse Ox 94 L 02/09/18 09:42 Intake & Output 02/08/18 02/09/18 02/09/18 18:59 06:59 18:59 Intake Total 120 Output Total 200 450 Balance -200 -450 120 Intake: Oral 120 Output: Urine 200 450 Other: Voiding Method Urinal Urinal # Voids 1 - Exam Physical Examination: PHYSICAL EXAMINATION: Patient is resting comfortably in bed. VITAL SIGNS: Blood pressure is [139/76]. Heart rate is [60]. Respiration is [16] . Temperature is [97.9]. HEENT: Head is atraumatic, neck is supple, there were no carotid bruits. CHEST: Lungs are clear to auscultation and percussion. CARDIAC: S1, S2 normal rate and rhythm. There is no murmur. ABDOMEN: Soft and nontender. Bowel sounds are present. EXTREMITIES: There is no pedal edema. Peripheral pulses are present. Neurological examination: Patient's neurological examination is nonfocal at this time. - Labs CBC & Chem 7: 02/09/18 06:43 02/09/18 06:43 Labs: Abnormal Lab Results - Last 24 Hours (Table) 02/09/18 02/09/18 Range/Units 06:43 06:43 RBC 3.95 L (4.30-5.90) m/uL Hgb 12.2 L (13.0-17.5) gm/dL Hct 38.3 L (39.0-53.0) % Chloride 111 H (98-107) mmol/L Total Protein 5.4 L (6.3-8.2) g/dL Albumin 2.7 L (3.5-5.0) g/dL Assessment and Plan (1) Ischemic cardiomyopathy Current Visit: Yes Status: Acute Code(s): I25.5 - ISCHEMIC CARDIOMYOPATHY SNOMED Code(s): 344470021 (2) History of implantable cardioverter-defibrillator (ICD) placement Current Visit: Yes Status: Acute Code(s): Z95.810 - PRESENCE OF AUTOMATIC ( IMPLANTABLE) CARDIAC DEFIBRILLATOR SNOMED Code(s): 955863286 (3) Multiple falls Current Visit: Yes Status: Acute Code(s): R29.6 - REPEATED FALLS SNOMED Code(s): 416301023 (4) Cervical compression fracture Current Visit: Yes Status: Acute Code(s): S12.9XXA - FRACTURE OF NECK, UNSPECIFIED, INITIAL ENCOUNTER SNOMED Code(s): 438127420 (5) Chronic systolic CHF (congestive heart failure) Current Visit: Yes Status: Acute Code(s): I50.22 - CHRONIC SYSTOLIC ( CONGESTIVE) HEART FAILURE SNOMED Code(s): 484355750 (6) Dehydration Current Visit: No Status: Acute Code(s): E86.0 - DEHYDRATION SNOMED Code(s ): 66283639 (7) Weakness Current Visit: No Status: Acute Code(s): R53.1 - WEAKNESS SNOMED Code(s): 77408124 Plan: This patient is a 82-year-old male who was admitted to hospital for symptoms of multiple falls and generalized weakness. He has a known history of severe ischemic cardiomyopathy. He has a known history of chronic systolic congestive heart failure as well. Patient has been having generalized weakness with falls at home prior to his admission. There was concern for question of stroke today and neurology was consulted for further evaluation. Patient was sent for a computed tomography scan of the brain on 02/08/2018 the results of which are noted above. CAT scan of the brain revealed moderate atrophy and chronic small vessel ischemic changes with no acute intracranial abnormality noted. We reviewed the results of the CAT scan today with the patient and his son was at bedside. There was concern he may have some new findings but no evidence on CAT scan if any acute findings for acute stroke. He is being treated for urinary tract infection and dehydration which may be more likely cause of his generalized weakness. He does have general medical debility and will require subacute rehab at the time of his discharge. His neurological examination reveals minimal facial asymmetry otherwise no focal motor deficit. His speech is clear and does not show any evidence of significant aphasia. He does have a cervical collar in place which is making it difficult to position his head and neck region properly. He is unable to go for MRI of the brain due to his AICD placement. We will continue to follow him closely for any further changes in his neurological status. We would recommend to continue with physical therapy evaluation and possible subacute rehab placement for this patient at the time of discharge. Would recommend to check for orthostatic hypotension in this patient as well. The patient has been sitting up today at his bedside in his chair. He seems to be doing better today in terms of his overall mental status. He is being considered for subacute rehab at [facility]. We will continue to follow his progress closely during this admission. This case was discussed at length with the patient and his son and daughter-in- law at bedside. All their questions were answered. They are aware of his guarded condition. We will continue close neurological follow-up for the patient during this admission.
[2018-02-09] MEDS: ATORVASTATIN 80 MG TAB PO SCH (22:12)
[2018-02-10 08:53] LABS: Basophils % (A) 1 %; Eosinophils # (A) 0.5 k/uL (0-0.7); Eosinophils % (A) 9 %; HCT 37.8 % (39.0-53.0); HGB 12.2 gm/dL (13.0-17.5); Lymphocytes % (A) 19 %; MCH 31.6 pg (25.0-35.0); MCHC 32.4 g/dL (31.0-37.0); MCV 97.6 fL (80.0-100.0); Mean Platelet Volume 7.7; Monocytes # (A) 0.4 k/uL (0-1.0); Monocytes % (A) 7 %; Neutrophils # (A) 3.3 k/uL (1.3-7.7); Neutrophils % (A) 61 %; Platelet Count 154 k/uL (150-450); RBC 3.87 m/uL (4.30-5.90); WBC 5.5 k/uL (3.8-10.6)
[2018-02-10 09:05] LABS: ALT 31 U/L (21-72); AST 24 U/L (17-59); Albumin 2.6 g/dL (3.5-5.0); Alkaline Phosphatase 95 U/L (38-126); Anion Gap 5 mmol/L; Blood Urea Nitrogen 15 mg/dL (9-20); Carbon Dioxide 24 mmol/L (22-30); Chloride 111 mmol/L (98-107); Glucose 93 mg/dL (74-99); Potassium 4.2 mmol/L (3.5-5.1); Sodium 140 mmol/L (137-145); Total Protein 5.3 g/dL (6.3-8.2)
[2018-02-10] MEDS: PANTOPRAZOLE 40 MG TABLET PO SCH (09:56)
[2018-02-10] MEDS: POLYETHYLENE GLYCOL 3350 17 GM POWD.PACK PO SCH (09:56)
[2018-02-10] MEDS: AMIODARONE 200 MG TAB PO SCH (09:57)
[2018-02-10] MEDS: DOCUSATE 100 MG CAP PO SCH ×2 (09:57→20:02)
[2018-02-10] MEDS: ASPIRIN 81 MG PO SCH (09:57)
[2018-02-10] MEDS: METOPROLOL TARTRATE 50 MG TAB PO SCH ×2 (09:57→20:02)
[2018-02-10] MEDS: LISINOPRIL 10 MG TAB PO SCH (09:57)
[2018-02-10] MEDS: SPIRONOLACTONE 25 MG TAB PO SCH (09:58)
[2018-02-10] MEDS: CLOPIDOGREL 75 MG TAB PO SCH (09:59)
[2018-02-10 10:32] VITALS: BMI 28.5
--- NOTE | 2018-02-10 12:31 | P.DS ---
Providers Date of admission: 02/07/18 17:45 Attending physician: Lloyd Morales MD Consults: 02/07/18 12:52 Consult Physician Routine Consulting Provider: Joao Renteria Consult Reason/Comments: falls, r/o cardiogenic syncope Do you want consulting provider notified?: Yes 02/08/18 18:04 Consult Physician Routine Consulting Provider: Sd Alicia Consult Reason/Comments: Stroke Symptoms Do you want consulting provider notified?: Yes Primary care physician: [facility] Course: This is an 82-year-old male one of Dr. 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 History of partial thyroidectomy Patient was admitted in February 2016 for dizziness and subsequently his ICD fired first time and it did fire again the second time V. fib V. tach was detected. ICD was interrogated and adjusted from 25-35 J. Last admission in `2016 for hyponatremia. Last admitted in November 2017 for pancreatitis secondary to gallstones with cholecystitis and ascending cholangitis it is post cholecystectomy by Dr. Pulido. Patient was also noted to be in V. fib and V. tach, Echocardiogram was obtained which suggested EF of 25-30% with severe global hypokinesia. Patient comes in today with multiple falls that started 3 days ago. Has history of cervical fracture for which patient is wearing the neck collar. Patient is complaining of increased weakness on evaluation in the ER vitals evaluated suggested temp of 97.2 heart rate 67 respiratory rate 16 blood pressure 140/74 saturating well on room air at 93%. Patient did give a history of some bloating and upper abdominal pain but denies any history of nausea, vomiting or diarrhea no dark stools or melena. He denies any chest pain or shortness of breath denies any palpitation or history of AICD firing. His echocardiogram obtained during the last visit in November 2017 suggest EF of 20- 25%. Labs obtained marketable CBC and a CMP with a urinalysis suggestive of infection. Urine culture ordered. Patient initiated on Rocephin 1 g every 24 hours. Orthostatics will be obtained BNP is 1900 non-suggestive of CHF exacerbation. Cardiology evaluation to rule out cardiogenic syncope. Orthostatics ordered to rule out orthostatic hypotension 02/08 patient feels weak and lethargic unable to come out of bed. Completed 25 % of meal this morning. He denies any dizziness lightheadedness. Denies any nausea vomiting does endorse bloating and upper abdominal pain. He does have history of constipation we'll initiate MiraLAX and Colace. We'll get abdominal x-ray to rule out any obstruction or ileus 02/09 patient is sitting in the chair. Did have a event last night where family noticed slurring of speech. CT head was ordered with no acute intracranial findings. Neurology evaluated the patient and does not suspect stroke. Orthostatics were negative. Patient generalized weakness is likely secondary to UTI. Continue antibiotics. Urine culture was not sent on admission. Ordered urine culture. PTOT evaluation pending patient is sitting in a chair doing well and denies any complains of chest pain or shortness of breath. He does have some bloating medicine. Since yesterday. Patient had a bowel movement today. Mental status is improved PTOT recommended subacute rehab plan to discharge today if approved Discharge diagnoses 1. Multiple falls likely secondary to dehydration and acute UTI. 2 history of cholecystitis Status post lap cholecystectomy on November 22 3. History of Acute pancreatitis secondary to gallstones. 4. h/o V. fib/V. tach 5. CAD post NC with cardiac arrest status post PCI back in 2013. 6. Hyperlipidemia. 7. Hypertension. 8. Post partial thyroidectomy. 9. AMD. 10. History of PUD. 11. Osteoarthritis. 12. Ischemic cardiomyopathy s/p AICD 13 abdominal pain likely secondary to constipation 14. Encephalopathy secondary to UTI - resolved Disposition to SNF Patient Condition at Discharge: Fair Plan - Discharge Summary New Discharge Prescriptions: New RX: Docusate [Colace] 100 mg PO BID cap RX: Polyethylene Glycol 3350 [Miralax] 17 gm PO DAILY powd.pack Cephalexin [Keflex] 250 mg PO Q8HR #18 capsule Continue RX: Atorvastatin [Lipitor] 80 mg PO HS #30 tab RX: Clopidogrel [Plavix] 75 mg PO DAILY RX: Spironolactone [Aldactone] 25 mg PO DAILY RX: Aspirin [Adult Low Dose Aspirin EC] 81 mg PO DAILY RX: Vit A/Vit C/Vit E/Zinc/Copper [ICAPS SOFTGEL] 1 cap PO DAILY RX: Amiodarone [Cordarone] 200 mg PO DAILY RX: Lisinopril [Zestril] 10 mg PO DAILY RX: Metoprolol Tartrate [Lopressor] 25 mg PO BID RX: Omeprazole [PriLOSEC] 20 mg PO DAILY Discharge Medication List RX: Atorvastatin [Lipitor] 80 mg PO HS #30 tab 11/20/13 [Rx] RX: Clopidogrel [Plavix] 75 mg PO DAILY 03/29/14 [History] RX: Spironolactone [Aldactone] 25 mg PO DAILY 12/03/16 [History] RX: Aspirin [Adult Low Dose Aspirin EC] 81 mg PO DAILY 11/16/17 [History] RX: Vit A/Vit C/Vit E/Zinc/Copper [ICAPS SOFTGEL] 1 cap PO DAILY 11/16/17 [ History] RX: Amiodarone [Cordarone] 200 mg PO DAILY 12/15/17 [History] RX: Lisinopril [Zestril] 10 mg PO DAILY 12/15/17 [History] RX: Metoprolol Tartrate [Lopressor] 25 mg PO BID 12/15/17 [History] RX: Omeprazole [PriLOSEC] 20 mg PO DAILY 12/15/17 [History] Cephalexin [Keflex] 250 mg PO Q8HR #18 capsule 02/10/18 [Rx] RX: Docusate [Colace] 100 mg PO BID cap 02/10/18 [Rx] RX: Polyethylene Glycol 3350 [Miralax] 17 gm PO DAILY powd.pack 02/10/18 [Rx] Follow up Appointment(s)/Referral(s): David Hassan MD [Primary Care Provider] - 1-2 days Discharge Disposition: TRANSFER TO SNF/ECF
--- NOTE | 2018-02-10 13:46 | CDI ---
Documentation Clarification Form Date: 02/10/18 From: Annalise Maldonado Admit Date: 02/07/2018 5:45:00 PM Patient Name: Didier Carrillo Visit Number: [id number] Discharge Date: ATTENTION: The Clinical Documentation Specialists (CDI) and [facility] Coding Staff appreciate your assistance in clarifying documentation. Please respond to the clarification below the line at the bottom and electronically sign. The CDI & [facility] Coding staff will review the response and follow-up if needed. Please note: Queries are made part of the Legal Health Record. If you have any questions, please contact the author of this message via ITS. Dr. Lloyd Morales Altered Mental Status was documented in the patient record, noting weakness, lethargy, and multiple falls. Syncope was ruled out. No documented orthostasis. 02/10 documentation states "mental status has improved" after treatment. History/Risk Factors: UTI and dehydration. Clinical Indicators: Generalized weakness, lethargic, multiple falls over past three days. Unable to come out of bed. Episode of slurred speech. Labs:UA suggestive of infection. CT:No evidence of stroke. Treatment: IV Rocephin for UTI. In your professional opinion, please clarify the etiology of the Altered Mental Status, if known. Delirium (specify cause): Dementia (if know, specify Type and if with/without Behavioral Disturbance) ____ ___ Encephalopathy (specify Type and Underlying Medical Illness) Other condition (please specify) Unable to determine (Last Revision: May 2017) encephalopathy sec to UTI MTDD
--- NOTE | 2018-02-10 16:04 | P.PN ---
Subjective Progress Note Date: 02/10/18 This is an 82-year-old male one of Dr. 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 History of partial thyroidectomy Patient was admitted in February 2016 for dizziness and subsequently his ICD fired first time and it did fire again the second time V. fib V. tach was detected. ICD was interrogated and adjusted from 25-35 J. Last admission in 2016 for hyponatremia. Last admitted in November 2017 for pancreatitis secondary to gallstones with cholecystitis and ascending cholangitis it is post cholecystectomy by Dr. Pulido. Patient was also noted to be in V. fib and V. tach, Echocardiogram was obtained which suggested EF of 25-30% with severe global hypokinesia. Patient comes in today with multiple falls that started 3 days ago. Has history of cervical fracture for which patient is wearing the neck collar. Patient is complaining of increased weakness on evaluation in the ER vitals evaluated suggested temp of 97.2 heart rate 67 respiratory rate 16 blood pressure 140/74 saturating well on room air at 93%. Patient did give a history of some bloating and upper abdominal pain but denies any history of nausea, vomiting or diarrhea no dark stools or melena. He denies any chest pain or shortness of breath denies any palpitation or history of AICD firing. His echocardiogram obtained during the last visit in November 2017 suggest EF of 20- 25%. Labs obtained marketable CBC and a CMP with a urinalysis suggestive of infection. Urine culture ordered. Patient initiated on Rocephin 1 g every 24 hours. Orthostatics will be obtained BNP is 1900 non-suggestive of CHF exacerbation. Cardiology evaluation to rule out cardiogenic syncope. Orthostatics ordered to rule out orthostatic hypotension 02/08 patient feels weak and lethargic unable to come out of bed. Completed 25 % of meal this morning. He denies any dizziness lightheadedness. Denies any nausea vomiting does endorse bloating and upper abdominal pain. He does have history of constipation we'll initiate MiraLAX and Colace. We'll get abdominal x-ray to rule out any obstruction or ileus 02/09 patient is sitting in the chair. Did have a event last night where family noticed slurring of speech. CT head was ordered with no acute intracranial findings. Neurology evaluated the patient and does not suspect stroke. Orthostatics were negative. Patient generalized weakness is likely secondary to UTI. Continue antibiotics. Urine culture was not sent on admission. Ordered urine culture. PTOT evaluation pending Patient examined in the chair. Appears better than yesterday. Patient does have generalized weakness and would benefit from rehab. Patient is medically stable to be discharged once [facility] is APPROVED. ROS Constitutional: Denies chills, Denies fever, endorses lethargy, Denies malaise , Denies poor appetite, in endorses weakness, Denies weight loss Cardiovascular: Denies chest pain, Denies decreased exercise tolerance, Denies edema, Denies high blood pressure, Denies irregular heart beat, Denies palpitations, Denies paroxysmal nocturnal dyspnea, Denies rapid heart beat, Denies shortness of breath Respiratory: Denies congestion, Denies cough, Denies cough with sputum, Denies dyspnea, Denies home oxygen, Denies wheezing Gastrointestinal: endorses abdominal pain, Denies change in bowel habits, Denies coffee ground emesis, Denies early satiety, Denies excessive gas, Denies heartburn, Denies hematemesis, Denies hematochezia, Denies loss of appetite, Denies nausea, Denies vomiting Genitourinary: Denies dysuria, Denies flank pain, Denies kidney stones, Denies menorrhagia, Denies urgency, Denies urinary frequency Musculoskeletal: Denies gait dysfunction, Denies limitation of motion, Denies morning stiffness, Denies muscle cramps, limited neck mobility with neck collar Integumentary: Denies rash, Denies wounds, Denies brittle nails, Denies change in hair/nails, Denies darkening of skin Neurological: Denies balance difficulties, Denies change in speech, Denies double vision, Denies gait dysfunction, Denies loss of vision, Denies motor disturbance, Denies numbness, Denies paralysis, Denies paresthesias, Denies seizures Psychiatric: Denies anxiety, Denies depression Endocrine: Denies excessive sweating, Denies excessive thirst, Denies high blood sugars, Denies palpitations Hematologic/Lymphatic: Denies easy bruising, Denies lymphadenopathy Objective - Vital Signs Vital signs: Vital Signs Temp 98.5 F 02/10/18 14:45 Pulse 63 02/10/18 14:45 Resp 19 02/10/18 14:45 BP 114/67 02/10/18 14:45 Pulse Ox 92 L 02/10/18 14:45 Intake & Output 02/09/18 02/10/18 02/10/18 18:59 06:59 18:59 Intake Total 380 400 Output Total 800 Balance 380 -800 400 Weight 87.543 kg Intake: Intake, IV Titration 400 Amount cefTRIAXone 1,000 mg In 400 Sodium Chloride 0.9% 50 ml @ 100 mls/hr IVPB Q24HR [facility] Rx#:[id number] Oral 380 Output: Urine 800 Other: # Voids 3 200 - Labs CBC & Chem 7: 02/10/18 06:50 02/10/18 06:50 Labs: Abnormal Lab Results - Last 24 Hours (Table) 02/10/18 02/10/18 Range/Units 06:50 06:50 RBC 3.87 L (4.30-5.90) m/uL Hgb 12.2 L (13.0-17.5) gm/dL Hct 37.8 L (39.0-53.0) % Chloride 111 H (98-107) mmol/L Total Protein 5.3 L (6.3-8.2) g/dL Albumin 2.6 L (3.5-5.0) g/dL Microbiology - Last 24 Hours (Table) 02/09/18 Unknown Urine Culture - Preliminary Urine,Voided
--- NOTE | 2018-02-10 18:00 | P.PN ---
Subjective Progress Note Date: 02/10/18 Patient seen in Neurology follow-up today for evaluation of generalized weakness and TIA like symptoms. The patient is doing much better today. The patient is sitting up in his chair and is doing quite well today. He seems to be doing better today than yesterday. His son and [id number] were at bedside yesterday and they were updated on all of his recent neurological findings. Patient clearly seems to be doing better today in terms of his mental status and strength. He is being considered for discharge tomorrow to [facility] for ongoing subacute rehab. He is awaiting insurance clearance for his discharge to rehab possibly tomorrow. His generalized weakness is likely multifactorial in nature and a big contribution from his recent urinary tract infection and dehydration. He has no evidence to suggest cardiogenic syncope at this time. Would recommend strongly that he consider subacute rehab at least for 1-2 weeks following discharge. The patient otherwise seems to be doing quite well and shows improvement in his mental status today as compared to yesterday as well. We will continue close neurological follow-up of this patient during this admission. Objective - Vital Signs Vital signs: Vital Signs Temp 98.5 F 02/10/18 14:45 Pulse 63 02/10/18 14:45 Resp 19 02/10/18 16:00 BP 114/67 02/10/18 14:45 Pulse Ox 92 L 02/10/18 14:45 Intake & Output 02/09/18 02/10/18 02/10/18 18:59 06:59 18:59 Intake Total 380 400 Output Total 800 Balance 380 -800 400 Weight 87.543 kg Intake: Intake, IV Titration 400 Amount cefTRIAXone 1,000 mg In 400 Sodium Chloride 0.9% 50 ml @ 100 mls/hr IVPB Q24HR [facility] Rx#:[id number] Oral 380 Output: Urine 800 Other: # Voids 3 200 - Exam Physical Examination: PHYSICAL EXAMINATION: Patient is resting comfortably in bed. VITAL SIGNS: Blood pressure is [114/67]. Heart rate is [63]. Respiration is [19] . Temperature is [98.5]. HEENT: Head is atraumatic, neck is supple, there were no carotid bruits. CHEST: Lungs are clear to auscultation and percussion. CARDIAC: S1, S2 normal rate and rhythm. There is no murmur. ABDOMEN: Soft and nontender. Bowel sounds are present. EXTREMITIES: There is no pedal edema. Peripheral pulses are present. Neurological examination: Patient's neurological examination is nonfocal at this time. - Labs CBC & Chem 7: 02/10/18 06:50 02/10/18 06:50 Labs: Abnormal Lab Results - Last 24 Hours (Table) 02/10/18 02/10/18 Range/Units 06:50 06:50 RBC 3.87 L (4.30-5.90) m/uL Hgb 12.2 L (13.0-17.5) gm/dL Hct 37.8 L (39.0-53.0) % Chloride 111 H (98-107) mmol/L Total Protein 5.3 L (6.3-8.2) g/dL Albumin 2.6 L (3.5-5.0) g/dL Microbiology - Last 24 Hours (Table) 02/09/18 Unknown Urine Culture - Preliminary Urine,Voided Assessment and Plan (1) Ischemic cardiomyopathy Current Visit: Yes Status: Acute Code(s): I25.5 - ISCHEMIC CARDIOMYOPATHY SNOMED Code(s): 739773625 (2) History of implantable cardioverter-defibrillator (ICD) placement Current Visit: Yes Status: Acute Code(s): Z95.810 - PRESENCE OF AUTOMATIC ( IMPLANTABLE) CARDIAC DEFIBRILLATOR SNOMED Code(s): 491530676 (3) Multiple falls Current Visit: Yes Status: Acute Code(s): R29.6 - REPEATED FALLS SNOMED Code(s): 209566171 (4) Cervical compression fracture Current Visit: Yes Status: Acute Code(s): S12.9XXA - FRACTURE OF NECK, UNSPECIFIED, INITIAL ENCOUNTER SNOMED Code(s): 750096483 (5) Chronic systolic CHF (congestive heart failure) Current Visit: Yes Status: Acute Code(s): I50.22 - CHRONIC SYSTOLIC ( CONGESTIVE) HEART FAILURE SNOMED Code(s): 336677378 (6) Dehydration Current Visit: No Status: Acute Code(s): E86.0 - DEHYDRATION SNOMED Code(s ): 74909091 (7) Weakness Current Visit: No Status: Acute Code(s): R53.1 - WEAKNESS SNOMED Code(s): 72210730 Plan: This patient is a pleasant 82-year-old male who continues to show good improvement in his overall medical condition. He is sitting up in chair today and is more awake and alert. He has a cervical collar in place which remained stable. He continues to have generalized weakness and is awaiting transfer to the subacute rehab unit at [facility]. He is only awaiting insurance clearance and will possibly be able to transfer tomorrow to the [facility]. The patient otherwise seems to be doing quite well. He denies any new symptoms of confusion or disorientation. As noted his generalized weakness is felt to be multifactorial. He would benefit from ongoing subacute rehab at [facility]. We will continue close neurological follow-up for the patient during this admission.
[2018-02-10] MEDS: ATORVASTATIN 80 MG TAB PO SCH (20:02)
[2018-02-11] MEDS: POLYETHYLENE GLYCOL 3350 17 GM POWD.PACK PO SCH (07:36)
[2018-02-11] MEDS: LISINOPRIL 10 MG TAB PO SCH (07:36)
[2018-02-11] MEDS: CLOPIDOGREL 75 MG TAB PO SCH (07:37)
[2018-02-11] MEDS: SPIRONOLACTONE 25 MG TAB PO SCH (07:37)
[2018-02-11] MEDS: METOPROLOL TARTRATE 50 MG TAB PO SCH ×2 (07:37→21:54)
[2018-02-11] MEDS: PANTOPRAZOLE 40 MG TABLET PO SCH (07:37)
[2018-02-11] MEDS: ASPIRIN 81 MG PO SCH (07:37)
[2018-02-11] MEDS: AMIODARONE 200 MG TAB PO SCH (07:37)
[2018-02-11] MEDS: DOCUSATE 100 MG CAP PO SCH (08:03)
[2018-02-11] MEDS ORDERED: DOCUSATE 100 MG CAP PO PRN (13:18)
[2018-02-11] MEDS ORDERED: POLYETHYLENE GLYCOL 3350 17 GM POWD.PACK PO PRN (13:18)
--- NOTE | 2018-02-11 13:20 | P.PN ---
Subjective Progress Note Date: 02/11/18 This is an 82-year-old male one of Dr. 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 History of partial thyroidectomy Patient was admitted in February 2016 for dizziness and subsequently his ICD fired first time and it did fire again the second time V. fib V. tach was detected. ICD was interrogated and adjusted from 25-35 J. Last admission in 2016 for hyponatremia. Last admitted in November 2017 for pancreatitis secondary to gallstones with cholecystitis and ascending cholangitis it is post cholecystectomy by Dr. Pulido. Patient was also noted to be in V. fib and V. tach, Echocardiogram was obtained which suggested EF of 25-30% with severe global hypokinesia. Patient comes in today with multiple falls that started 3 days ago. Has history of cervical fracture for which patient is wearing the neck collar. Patient is complaining of increased weakness on evaluation in the ER vitals evaluated suggested temp of 97.2 heart rate 67 respiratory rate 16 blood pressure 140/74 saturating well on room air at 93%. Patient did give a history of some bloating and upper abdominal pain but denies any history of nausea, vomiting or diarrhea no dark stools or melena. He denies any chest pain or shortness of breath denies any palpitation or history of AICD firing. His echocardiogram obtained during the last visit in November 2017 suggest EF of 20- 25%. Labs obtained marketable CBC and a CMP with a urinalysis suggestive of infection. Urine culture ordered. Patient initiated on Rocephin 1 g every 24 hours. Orthostatics will be obtained BNP is 1900 non-suggestive of CHF exacerbation. Cardiology evaluation to rule out cardiogenic syncope. Orthostatics ordered to rule out orthostatic hypotension 02/08 patient feels weak and lethargic unable to come out of bed. Completed 25 % of meal this morning. He denies any dizziness lightheadedness. Denies any nausea vomiting does endorse bloating and upper abdominal pain. He does have history of constipation we'll initiate MiraLAX and Colace. We'll get abdominal x-ray to rule out any obstruction or ileus 02/09 patient is sitting in the chair. Did have a event last night where family noticed slurring of speech. CT head was ordered with no acute intracranial findings. Neurology evaluated the patient and does not suspect stroke. Orthostatics were negative. Patient generalized weakness is likely secondary to UTI. Continue antibiotics. Urine culture was not sent on admission. Ordered urine culture. PTOT evaluation pending Patient examined in the chair. Appears better than yesterday. Patient does have generalized weakness and would benefit from rehab. Patient is medically stable to be discharged once priorauth from [place] is APPROVED. 02/11-[facility] in examining chair. He is alert oriented 3. Denies any abdominal pain. He had 2 bowel movements yesterday. Continues have significant weakness on moving around the room. [facility] has accepted the patient awaiting prior authorization from insurance. Likely discharged Wednesday ROS Constitutional: Denies chills, Denies fever, endorses lethargy, Denies malaise , Denies poor appetite, in endorses weakness, Denies weight loss Cardiovascular: Denies chest pain, Denies decreased exercise tolerance, Denies edema, Denies high blood pressure, Denies irregular heart beat, Denies palpitations, Denies paroxysmal nocturnal dyspnea, Denies rapid heart beat, Denies shortness of breath Respiratory: Denies congestion, Denies cough, Denies cough with sputum, Denies dyspnea, Denies home oxygen, Denies wheezing Gastrointestinal: resolved abdominal pain, Denies change in bowel habits, Denies coffee ground emesis, Denies early satiety, Denies excessive gas, Denies heartburn, Denies hematemesis, Denies hematochezia, Denies loss of appetite, Denies nausea, Denies vomiting, constipation resolved Genitourinary: Denies dysuria, Denies flank pain, Denies kidney stones, Denies menorrhagia, Denies urgency, Denies urinary frequency Musculoskeletal: Denies gait dysfunction, Denies limitation of motion, Denies morning stiffness, Denies muscle cramps, limited neck mobility with neck collar Integumentary: Denies rash, Denies wounds, Denies brittle nails, Denies change in hair/nails, Denies darkening of skin Neurological: Denies balance difficulties, Denies change in speech, Denies double vision, Denies gait dysfunction, Denies loss of vision, Denies motor disturbance, Denies numbness, Denies paralysis, Denies paresthesias, Denies seizures Psychiatric: Denies anxiety, Denies depression Endocrine: Denies excessive sweating, Denies excessive thirst, Denies high blood sugars, Denies palpitations Hematologic/Lymphatic: Denies easy bruising, Denies lymphadenopathy Objective - Vital Signs Vital signs: Vital Signs Temp 98.1 F 02/11/18 07:15 Pulse 66 02/11/18 07:15 Resp 19 02/11/18 07:15 BP 128/74 02/11/18 07:15 Pulse Ox 91 L 02/11/18 07:15 Intake & Output 02/10/18 02/11/18 02/11/18 18:59 06:59 18:59 Intake Total 400 300 Output Total 425 Balance 400 -125 Weight 87.543 kg Intake: Intake, IV Titration 400 100 Amount cefTRIAXone 1,000 mg In 400 100 Sodium Chloride 0.9% 50 ml @ 100 mls/hr IVPB Q24HR JONO Rx#:[id number] Oral 200 Output: Urine 425 Other: # Voids 200 2 - Exam - Constitutional General appearance: cooperative, no acute distress, obese - EENT Eyes: anicteric sclerae, PERRLA, normal appearance ENT: hearing grossly normal - Neck Neck: decreased ROM with neck collar - Respiratory Respiratory: bilateral: CTA, negative: diminished, dullness, rales, rhonchi - Cardiovascular Rhythm: regular Heart sounds: normal: S1, S2 Abnormal Heart Sounds: no systolic murmur, no diastolic murmur, no rub, no S3 Gallop, no S4 Gallop, no click, no other - Gastrointestinal General gastrointestinal: normal bowel sounds, soft, tenderenss improved - Integumentary Integumentary: no rash - Neurologic Neurologic: CNII-XII intact - Musculoskeletal Musculoskeletal: gait not assessed , strength equal bilaterally - Psychiatric Psychiatric: A&O x's 3, appropriate affect - Labs CBC & Chem 7: 02/10/18 06:50 02/10/18 06:50 Labs: Microbiology - Last 24 Hours (Table) 02/09/18 Unknown Urine Culture - Final Urine,Voided Assessment and Plan Plan: 1. Multiple falls likely secondary to dehydration and acute UTI. We will start patient on slow hydration with and is at 50 mL/h. Watch input and output. Rocephin 1 g every 24 hours urine culture pending. Doubt cardiogenic syncope as patient did not lose any consciousness. Patient has a significant history of ischemic cardiomyopathy cardiology ruled out cardiogenic syncope will interrogate the pacemaker 2 history of cholecystitis Status post lap cholecystectomy on November 22 3. History of Acute pancreatitis secondary to gallstones. 4. h/o V. fib/V. tach - Continue amiodarone 200 mg po daily 5. CAD post [place] with cardiac arrest status post PCI back in 2013. Continue metoprolol 25 mg orally twice every day, amlodipine 12.5 mg by mouth daily, lisinopril 5 mg by mouth daily, aspirin 81 mg orally once every day continue Plavix 75 mg by mouth daily 6. Hyperlipidemia. Continue patient on low-cholesterol diet. 7. Hypertension. Continue metoprolol 25 mg orally twice every day, Imuran drawn 12.5 mg by mouth daily, lisinopril 5 mg by mouth daily 8. Post partial thyroidectomy. 9. AMD. Stable at this point in time. 10. History of PUD. Continue Protonix 40 mg orally once every day. 11. Osteoarthritis. Stable. 12. Ischemic cardiomyopathy s/p AICD Stable at this time ejection fraction similar to the previous echo 13. DVT prophylaxis. Lovenox 40 mg subcutaneously every 24 hours. 14. GI prophylaxis. Protonix 40 mg orally once every day. 15. Medical debility. The patient will need to go for subacute rehabilitationPT OT 15 abdominal pain likely secondary to constipation Colace and MiraLAX initiated. improved with medication 16. Disposition - awaiting prior auth. D/c to [facility] once approved
--- NOTE | 2018-02-11 18:40 | P.PN ---
Subjective Progress Note Date: 02/11/18 Patient seen in Neurology follow-up today for evaluation of generalized weakness and TIA like symptoms. The patient is doing much better today. The patient is sitting up in his chair and is doing quite well today. He seems to be doing better today than yesterday. His son and [id number] were at bedside yesterday and they were updated on all of his recent neurological findings. Patient clearly seems to be doing better today in terms of his mental status and strength. He is being considered for discharge tomorrow to [facility] for ongoing subacute rehab. He is awaiting insurance clearance for his discharge to rehab possibly tomorrow. His generalized weakness is likely multifactorial in nature and a big contribution from his recent urinary tract infection and dehydration. He has no evidence to suggest cardiogenic syncope at this time. Would recommend strongly that he consider subacute rehab at least for 1-2 weeks following discharge. The patient otherwise seems to be doing quite well and shows improvement in his mental status today as compared to yesterday as well. He has been sitting up in the chair most of the day and has not had any difficulties. He seems to be much more awake and conversant and able to communicate fairly easily. He feels there is slight improvement in his strength as well but is looking forward to subacute rehab at [facility]. We will continue close neurological follow-up of this patient during this admission. Objective - Vital Signs Vital signs: Vital Signs Temp 98.5 F 02/11/18 14:27 Pulse 60 02/11/18 14:27 Resp 16 02/11/18 16:00 BP 114/68 02/11/18 14:27 Pulse Ox 100 02/11/18 14:27 Intake & Output 02/10/18 02/11/18 02/11/18 18:59 06:59 18:59 Intake Total 400 300 Output Total 425 Balance 400 -125 Weight 87.543 kg Intake: Intake, IV Titration 400 100 Amount cefTRIAXone 1,000 mg In 400 100 Sodium Chloride 0.9% 50 ml @ 100 mls/hr IVPB Q24HR JONO Rx#:[id number] Oral 200 Output: Urine 425 Other: # Voids 200 2 2 - Exam Physical Examination: PHYSICAL EXAMINATION: Patient is resting comfortably in bed. VITAL SIGNS: Blood pressure is [114/68]. Heart rate is [60]. Respiration is [16] . Temperature is [98.5]. HEENT: Head is atraumatic, neck is supple, there were no carotid bruits. CHEST: Lungs are clear to auscultation and percussion. CARDIAC: S1, S2 normal rate and rhythm. There is no murmur. ABDOMEN: Soft and nontender. Bowel sounds are present. EXTREMITIES: There is no pedal edema. Peripheral pulses are present. Neurological examination: Patient's neurological examination is nonfocal at this time. Patient is sitting up in chair next to his bedside. He is more awake and alert today. He is following all commands. He has some generalized weakness. - Labs CBC & Chem 7: 02/10/18 06:50 02/10/18 06:50 Labs: Microbiology - Last 24 Hours (Table) 02/09/18 Unknown Urine Culture - Final Urine,Voided Assessment and Plan (1) Ischemic cardiomyopathy Current Visit: Yes Status: Acute Code(s): I25.5 - ISCHEMIC CARDIOMYOPATHY SNOMED Code(s): 521014400 (2) History of implantable cardioverter-defibrillator (ICD) placement Current Visit: Yes Status: Acute Code(s): Z95.810 - PRESENCE OF AUTOMATIC ( IMPLANTABLE) CARDIAC DEFIBRILLATOR SNOMED Code(s): 748909163 (3) Multiple falls Current Visit: Yes Status: Acute Code(s): R29.6 - REPEATED FALLS SNOMED Code(s): 940876153 (4) Cervical compression fracture Current Visit: Yes Status: Acute Code(s): S12.9XXA - FRACTURE OF NECK, UNSPECIFIED, INITIAL ENCOUNTER SNOMED Code(s): 078462827 (5) Chronic systolic CHF (congestive heart failure) Current Visit: Yes Status: Acute Code(s): I50.22 - CHRONIC SYSTOLIC ( CONGESTIVE) HEART FAILURE SNOMED Code(s): 864716817 (6) Dehydration Current Visit: No Status: Acute Code(s): E86.0 - DEHYDRATION SNOMED Code(s ): 71300051 (7) Weakness Current Visit: No Status: Acute Code(s): R53.1 - WEAKNESS SNOMED Code(s): 98200930 Plan: This patient is a pleasant 82-year-old male who continues to show good improvement in his overall medical condition. He is sitting up in chair today and is more awake and alert. He has a cervical collar in place which remained stable. He continues to have generalized weakness and is awaiting transfer to the subacute rehab unit at [facility]. He is only awaiting insurance clearance and will possibly be able to transfer tomorrow to the [facility]. The patient otherwise seems to be doing quite well. He denies any new symptoms of confusion or disorientation. As noted his generalized weakness is felt to be multifactorial. He would benefit from ongoing subacute rehab at [facility]. He has been sitting up in the chair most of the day today. He states he has noted slight improvement in muscle strength in general. He is anticipating possible discharge to [facility] may be on Wednesday or possibly even tomorrow. We would recommend he continue with aggressive PT OT evaluation at the nursing facility. We will continue close neurological follow- up for the patient during this admission.
[2018-02-11] MEDS: ATORVASTATIN 80 MG TAB PO SCH (21:54)
[2018-02-11] MEDS: ACETAMINOPHEN TAB 325 MG TAB PO PRN (21:57)
[2018-02-12] MEDS: METOPROLOL TARTRATE 50 MG TAB PO SCH ×2 (09:08→22:21)
[2018-02-12] MEDS: SPIRONOLACTONE 25 MG TAB PO SCH (09:08)
--- NOTE | 2018-02-12 09:08 | P.PN ---
Subjective Progress Note Date: 02/12/18 This is an 82-year-old male one of Dr. 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 History of partial thyroidectomy Patient was admitted in February 2016 for dizziness and subsequently his ICD fired first time and it did fire again the second time V. fib V. tach was detected. ICD was interrogated and adjusted from 25-35 J. Last admission in 2016 for hyponatremia. Last admitted in November 2017 for pancreatitis secondary to gallstones with cholecystitis and ascending cholangitis it is post cholecystectomy by Dr. Pulido. Patient was also noted to be in V. fib and V. tach, Echocardiogram was obtained which suggested EF of 25-30% with severe global hypokinesia. Patient comes in today with multiple falls that started 3 days ago. Has history of cervical fracture for which patient is wearing the neck collar. Patient is complaining of increased weakness on evaluation in the ER vitals evaluated suggested temp of 97.2 heart rate 67 respiratory rate 16 blood pressure 140/74 saturating well on room air at 93%. Patient did give a history of some bloating and upper abdominal pain but denies any history of nausea, vomiting or diarrhea no dark stools or melena. He denies any chest pain or shortness of breath denies any palpitation or history of AICD firing. His echocardiogram obtained during the last visit in November 2017 suggest EF of 20- 25%. Labs obtained marketable CBC and a CMP with a urinalysis suggestive of infection. Urine culture ordered. Patient initiated on Rocephin 1 g every 24 hours. Orthostatics will be obtained BNP is 1900 non-suggestive of CHF exacerbation. Cardiology evaluation to rule out cardiogenic syncope. Orthostatics ordered to rule out orthostatic hypotension 02/08 patient feels weak and lethargic unable to come out of bed. Completed 25 % of meal this morning. He denies any dizziness lightheadedness. Denies any nausea vomiting does endorse bloating and upper abdominal pain. He does have history of constipation we'll initiate MiraLAX and Colace. We'll get abdominal x-ray to rule out any obstruction or ileus 02/09 patient is sitting in the chair. Did have a event last night where family noticed slurring of speech. CT head was ordered with no acute intracranial findings. Neurology evaluated the patient and does not suspect stroke. Orthostatics were negative. Patient generalized weakness is likely secondary to UTI. Continue antibiotics. Urine culture was not sent on admission. Ordered urine culture. PTOT evaluation pending Patient examined in the chair. Appears better than yesterday. Patient does have generalized weakness and would benefit from rehab. Patient is medically stable to be discharged once priorauth from [facility] is APPROVED. 02/11-[facility] in examining chair. He is alert oriented 3. Denies any abdominal pain. He had 2 bowel movements yesterday. Continues have significant weakness on moving around the room. [facility] has accepted the patient awaiting prior authorization from insurance. Likely discharged Monday 02/12: Patient is resting comfortably in a chair. He is alert and oriented 3. He denies any chest pain, shortness of breath, or abdominal pain. Patient continues to have weakness on moving around in the room. He has been accepted to go to [facility] and a call was paced to case management to see if he be able to go today. If he is not able to go he will likely be discharged on Wednesday. ROS Constitutional: Denies chills, Denies fever, endorses lethargy, Denies malaise , Denies poor appetite, in endorses weakness, Denies weight loss Cardiovascular: Denies chest pain, Denies decreased exercise tolerance, Denies edema, Denies high blood pressure, Denies irregular heart beat, Denies palpitations, Denies paroxysmal nocturnal dyspnea, Denies rapid heart beat, Denies shortness of breath Respiratory: Denies congestion, Denies cough, Denies cough with sputum, Denies dyspnea, Denies home oxygen, Denies wheezing Gastrointestinal: resolved abdominal pain, Denies change in bowel habits, Denies coffee ground emesis, Denies early satiety, Denies excessive gas, Denies heartburn, Denies hematemesis, Denies hematochezia, Denies loss of appetite, Denies nausea, Denies vomiting, constipation resolved Genitourinary: Denies dysuria, Denies flank pain, Denies kidney stones, Denies menorrhagia, Denies urgency, Denies urinary frequency Musculoskeletal: Denies gait dysfunction, Denies limitation of motion, Denies morning stiffness, Denies muscle cramps, limited neck mobility with neck collar Integumentary: Denies rash, Denies wounds, Denies brittle nails, Denies change in hair/nails, Denies darkening of skin Neurological: Denies balance difficulties, Denies change in speech, Denies double vision, Denies gait dysfunction, Denies loss of vision, Denies motor disturbance, Denies numbness, Denies paralysis, Denies paresthesias, Denies seizures Psychiatric: Denies anxiety, Denies depression Endocrine: Denies excessive sweating, Denies excessive thirst, Denies high blood sugars, Denies palpitations Hematologic/Lymphatic: Denies easy bruising, Denies lymphadenopathy Objective - Vital Signs Vital signs: Vital Signs Temp 98.5 F 02/12/18 00:52 Pulse 60 02/12/18 00:52 Resp 16 02/12/18 00:52 BP 108/64 02/12/18 00:52 Pulse Ox 90 L 02/12/18 00:52 Intake & Output 02/11/18 02/12/18 02/12/18 18:59 06:59 18:59 Intake Total 590 Output Total 600 Balance -10 Intake: Oral 590 Output: Urine 600 Other: # Voids 2 1 1 - Constitutional General appearance: Present: average body habitus, cooperative - EENT Eyes: Present: anicteric sclerae, EOMI, PERRLA ENT: Present: hearing grossly normal, NA/AT - Neck Neck: Present: normal ROM. Absent: lymphadenopathy, rigidity - Respiratory Respiratory: bilateral: CTA, negative: diminished, dullness, rales, rhonchi, wheezing, prolonged expiration, prolonged inspiration - Cardiovascular Rhythm: regular Heart sounds: normal: S1, S2 Abnormal Heart Sounds: Absent: systolic murmur, diastolic murmur, rub, S3 Gallop , S4 Gallop, click, other - Gastrointestinal General gastrointestinal: Present: normal bowel sounds, soft. Absent: organomegaly, rigid, tenderness - Integumentary Integumentary: Present: normal, pale - Neurologic Neurologic: Present: CNII-XII intact - Musculoskeletal Musculoskeletal: Present: gait normal, generalized weakness - Psychiatric Psychiatric: Present: A&O x's 3, appropriate affect, intact judgment & insight - Labs CBC & Chem 7: 02/10/18 06:50 02/10/18 06:50 Assessment and Plan Plan: 1. Multiple falls likely secondary to dehydration and acute UTI. We will start patient on slow hydration with and is at 50 mL/h. Watch input and output. Urine culture negative Rocephin DC'd. Patient has a significant history of ischemic cardiomyopathy cardiology ruled out cardiogenic syncope will interrogate the pacemaker 2 history of cholecystitis Status post lap cholecystectomy on November 22 3. History of Acute pancreatitis secondary to gallstones. 4. h/o V. fib/V. tach - Continue amiodarone 200 mg po daily 5. CAD post [place] with cardiac arrest status post PCI back in 2013. Continue metoprolol 25 mg orally twice every day, amlodipine 12.5 mg by mouth daily, lisinopril 5 mg by mouth daily, aspirin 81 mg orally once every day continue Plavix 75 mg by mouth daily 6. Hyperlipidemia. Continue patient on low-cholesterol diet. 7. Hypertension. Continue metoprolol 25 mg orally twice every day, Imuran drawn 12.5 mg by mouth daily, lisinopril 5 mg by mouth daily 8. Post partial thyroidectomy. 9. AMD. Stable at this point in time. 10. History of PUD. Continue Protonix 40 mg orally once every day. 11. Osteoarthritis. Stable. 12. Ischemic cardiomyopathy s/p AICD Stable at this time ejection fraction similar to the previous echo 13. DVT prophylaxis. Lovenox 40 mg subcutaneously every 24 hours. 14. GI prophylaxis. Protonix 40 mg orally once every day. 15. Medical debility. The patient will need to go for subacute rehabilitation PT OT 15 abdominal pain likely secondary to constipation Colace and MiraLAX initiated. improved with medication 16. Disposition - D/c to [facility] Impression and plan of care have been directed as dictated by the signing physician. Pretty Woodward nurse practitioner acting as scribe for signing physician.
[2018-02-12] MEDS: AMIODARONE 200 MG TAB PO SCH (09:09)
[2018-02-12] MEDS: ACETAMINOPHEN TAB 325 MG TAB PO PRN ×2 (09:09→15:20)
[2018-02-12] MEDS: CLOPIDOGREL 75 MG TAB PO SCH (09:09)
[2018-02-12] MEDS: ASPIRIN 81 MG PO SCH (09:10)
[2018-02-12] MEDS: PANTOPRAZOLE 40 MG TABLET PO SCH (09:10)
[2018-02-12] MEDS: LISINOPRIL 10 MG TAB PO SCH (09:11)
--- NOTE | 2018-02-12 13:01 | P.PN ---
Subjective Progress Note Date: 02/12/18 Patient seen in Neurology follow-up today for evaluation of generalized weakness and TIA like symptoms. The patient is doing much better today. The patient is sitting up in his chair and is doing quite well today. He seems to be doing better today than yesterday. Patient clearly seems to be doing better today in terms of his mental status and strength. He is being considered for discharge tomorrow to [facility] for ongoing subacute rehab. He is awaiting insurance clearance for his discharge to rehab possibly on Wednesday. His generalized weakness is likely multifactorial in nature and a big contribution from his recent urinary tract infection and dehydration. He has no evidence to suggest cardiogenic syncope at this time. Would recommend strongly that he consider subacute rehab at least for 1-2 weeks following discharge. The patient otherwise seems to be doing quite well and shows improvement in his mental status today as compared to yesterday as well. He has been sitting up in the chair most of the day and has not had any difficulties. He seems to be much more awake and conversant and able to communicate fairly easily. He feels there is slight improvement in his strength as well but is looking forward to subacute rehab at [facility]. Patient has a hard cervical collar in place and will be following up with the orthopedic electronic warfare specialist next week. He denies any radicular pain associated with this cervical disc history. His cervical collar has been adjusted today and he shows no evidence of any facial droop or weakness. The patient otherwise seems to be doing well and is eating his lunch. He states he will most likely be discharged to [facility] on Wednesday. We will continue close neurological follow-up of this patient during this admission. Objective - Vital Signs Vital signs: Vital Signs Temp 98.1 F 02/12/18 07:00 Pulse 60 02/12/18 07:00 Resp 16 02/12/18 07:00 BP 128/69 02/12/18 07:00 Pulse Ox 98 02/12/18 07:00 Intake & Output 02/11/18 02/12/18 02/12/18 18:59 06:59 18:59 Intake Total 590 180 Output Total 600 Balance -10 180 Intake: Oral 590 180 Output: Urine 600 Other: # Voids 2 1 1 - Exam Physical Examination: PHYSICAL EXAMINATION: Patient is resting comfortably in bed. VITAL SIGNS: Blood pressure is [128/69]. Heart rate is [60]. Respiration is [16] . Temperature is [98.1]. HEENT: Head is atraumatic, neck is supple, there were no carotid bruits. CHEST: Lungs are clear to auscultation and percussion. CARDIAC: S1, S2 normal rate and rhythm. There is no murmur. ABDOMEN: Soft and nontender. Bowel sounds are present. EXTREMITIES: There is no pedal edema. Peripheral pulses are present. Neurological examination: Patient's neurological examination is nonfocal at this time. Patient is sitting up in chair next to his bedside. He is more awake and alert today. He is following all commands. He has some generalized weakness. He does have his cervical hard collar in place and is sitting up in chair at bedside. - Labs CBC & Chem 7: 02/10/18 06:50 02/10/18 06:50 Assessment and Plan (1) Ischemic cardiomyopathy Current Visit: Yes Status: Acute Code(s): I25.5 - ISCHEMIC CARDIOMYOPATHY SNOMED Code(s): 860356152 (2) History of implantable cardioverter-defibrillator (ICD) placement Current Visit: Yes Status: Acute Code(s): Z95.810 - PRESENCE OF AUTOMATIC ( IMPLANTABLE) CARDIAC DEFIBRILLATOR SNOMED Code(s): 184891438 (3) Multiple falls Current Visit: Yes Status: Acute Code(s): R29.6 - REPEATED FALLS SNOMED Code(s): 154029108 (4) Cervical compression fracture Current Visit: Yes Status: Acute Code(s): S12.9XXA - FRACTURE OF NECK, UNSPECIFIED, INITIAL ENCOUNTER SNOMED Code(s): 725594525 (5) Chronic systolic CHF (congestive heart failure) Current Visit: Yes Status: Acute Code(s): I50.22 - CHRONIC SYSTOLIC ( CONGESTIVE) HEART FAILURE SNOMED Code(s): 903220915 (6) Dehydration Current Visit: No Status: Acute Code(s): E86.0 - DEHYDRATION SNOMED Code(s ): 23907940 (7) Weakness Current Visit: No Status: Acute Code(s): R53.1 - WEAKNESS SNOMED Code(s): 54985343 Plan: This patient is a pleasant 82-year-old male who continues to show good improvement in his overall medical condition. He is sitting up in chair today and is more awake and alert. He has a cervical collar in place which remained stable. He continues to have generalized weakness and is awaiting transfer to the subacute rehab unit at [facility]. He is only awaiting insurance clearance and will possibly be able to transfer tomorrow to the [facility]. The patient otherwise seems to be doing quite well. He denies any new symptoms of confusion or disorientation. As noted his generalized weakness is felt to be multifactorial. Patient is sitting up in chair next to his bedside today. He does have his hard cervical collar in place. He does not show any signs of facial asymmetry once his collar is adjusted. He would benefit from ongoing subacute rehab at [facility]. He has been sitting up in the chair most of the day today. He states he has noted slight improvement in muscle strength in general. He is anticipating possible discharge to [facility] may be on Wednesday. We would recommend he continue with aggressive PT/ OT evaluation at the nursing facility. We will continue close neurological follow-up for the patient during this admission. His overall prognosis at this time remains guarded.
[2018-02-12] MEDS: ATORVASTATIN 80 MG TAB PO SCH (22:21)
[2018-02-13] MEDS: LISINOPRIL 10 MG TAB PO SCH (07:46)
[2018-02-13] MEDS: ASPIRIN 81 MG PO SCH (07:46)
[2018-02-13] MEDS: METOPROLOL TARTRATE 50 MG TAB PO SCH ×2 (07:47→21:12)
[2018-02-13] MEDS: AMIODARONE 200 MG TAB PO SCH (07:47)
[2018-02-13] MEDS: PANTOPRAZOLE 40 MG TABLET PO SCH (07:47)
[2018-02-13] MEDS: ACETAMINOPHEN TAB 325 MG TAB PO PRN ×2 (07:47→14:53)
[2018-02-13] MEDS: CLOPIDOGREL 75 MG TAB PO SCH (07:48)
[2018-02-13] MEDS: SPIRONOLACTONE 25 MG TAB PO SCH (07:48)
--- NOTE | 2018-02-13 12:57 | P.PN ---
Subjective Progress Note Date: 02/13/18 This is an 82-year-old male one of Dr. 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 History of partial thyroidectomy Patient was admitted in February 2016 for dizziness and subsequently his ICD fired first time and it did fire again the second time V. fib V. tach was detected. ICD was interrogated and adjusted from 25-35 J. Last admission in 2016 for hyponatremia. Last admitted in November 2017 for pancreatitis secondary to gallstones with cholecystitis and ascending cholangitis it is post cholecystectomy by Dr. Pulido. Patient was also noted to be in V. fib and V. tach, Echocardiogram was obtained which suggested EF of 25-30% with severe global hypokinesia. Patient comes in today with multiple falls that started 3 days ago. Has history of cervical fracture for which patient is wearing the neck collar. Patient is complaining of increased weakness on evaluation in the ER vitals evaluated suggested temp of 97.2 heart rate 67 respiratory rate 16 blood pressure 140/74 saturating well on room air at 93%. Patient did give a history of some bloating and upper abdominal pain but denies any history of nausea, vomiting or diarrhea no dark stools or melena. He denies any chest pain or shortness of breath denies any palpitation or history of AICD firing. His echocardiogram obtained during the last visit in November 2017 suggest EF of 20- 25%. Labs obtained marketable CBC and a CMP with a urinalysis suggestive of infection. Urine culture ordered. Patient initiated on Rocephin 1 g every 24 hours. Orthostatics will be obtained BNP is 1900 non-suggestive of CHF exacerbation. Cardiology evaluation to rule out cardiogenic syncope. Orthostatics ordered to rule out orthostatic hypotension 02/08 patient feels weak and lethargic unable to come out of bed. Completed 25 % of meal this morning. He denies any dizziness lightheadedness. Denies any nausea vomiting does endorse bloating and upper abdominal pain. He does have history of constipation we'll initiate MiraLAX and Colace. We'll get abdominal x-ray to rule out any obstruction or ileus 02/09 patient is sitting in the chair. Did have a event last night where family noticed slurring of speech. CT head was ordered with no acute intracranial findings. Neurology evaluated the patient and does not suspect stroke. Orthostatics were negative. Patient generalized weakness is likely secondary to UTI. Continue antibiotics. Urine culture was not sent on admission. Ordered urine culture. PTOT evaluation pending Patient examined in the chair. Appears better than yesterday. Patient does have generalized weakness and would benefit from rehab. Patient is medically stable to be discharged once priorauth from [facility] is APPROVED. 02/11-carmen in examining chair. He is alert oriented 3. Denies any abdominal pain. He had 2 bowel movements yesterday. Continues have significant weakness on moving around the room. [facility] has accepted the patient awaiting prior authorization from insurance. Likely discharged Monday 02/12: Patient is resting comfortably in a chair. He is alert and oriented 3. He denies any chest pain, shortness of breath, or abdominal pain. Patient continues to have weakness on moving around in the room. He has been accepted to go to [facility] and a call was paced to case management to see if he be able to go today. If he is not able to go he will likely be discharged on Wednesday. 02/13: Patient is resting comfortably in the chair. He is alert and oriented 3. Patient denies any chest pain, shortness of breath, or abdominal pain. Patient has been up and about in his room without any difficulties. Patient has been accepted to go to [facility] and will be going on Wednesday. ROS Constitutional: Denies chills, Denies fever, endorses lethargy, Denies malaise , Denies poor appetite, in endorses weakness, Denies weight loss Cardiovascular: Denies chest pain, Denies decreased exercise tolerance, Denies edema, Denies high blood pressure, Denies irregular heart beat, Denies palpitations, Denies paroxysmal nocturnal dyspnea, Denies rapid heart beat, Denies shortness of breath Respiratory: Denies congestion, Denies cough, Denies cough with sputum, Denies dyspnea, Denies home oxygen, Denies wheezing Gastrointestinal: resolved abdominal pain, Denies change in bowel habits, Denies coffee ground emesis, Denies early satiety, Denies excessive gas, Denies heartburn, Denies hematemesis, Denies hematochezia, Denies loss of appetite, Denies nausea, Denies vomiting, constipation resolved Genitourinary: Denies dysuria, Denies flank pain, Denies kidney stones, Denies menorrhagia, Denies urgency, Denies urinary frequency Musculoskeletal: Denies gait dysfunction, Denies limitation of motion, Denies morning stiffness, Denies muscle cramps, limited neck mobility with neck collar Integumentary: Denies rash, Denies wounds, Denies brittle nails, Denies change in hair/nails, Denies darkening of skin Neurological: Denies balance difficulties, Denies change in speech, Denies double vision, Denies gait dysfunction, Denies loss of vision, Denies motor disturbance, Denies numbness, Denies paralysis, Denies paresthesias, Denies seizures Psychiatric: Denies anxiety, Denies depression Endocrine: Denies excessive sweating, Denies excessive thirst, Denies high blood sugars, Denies palpitations Hematologic/Lymphatic: Denies easy bruising, Denies lymphadenopathy Objective - Vital Signs Vital signs: Vital Signs Temp 98.1 F 02/13/18 07:00 Pulse 61 02/13/18 07:00 Resp 14 02/13/18 07:00 BP 117/66 02/13/18 07:00 Pulse Ox 99 02/13/18 07:00 Intake & Output 02/12/18 02/13/18 02/13/18 18:59 06:59 18:59 Intake Total 860 270 Output Total 400 Balance 460 270 Intake: Intake, IV Titration 50 Amount cefTRIAXone 1,000 mg In 50 Sodium Chloride 0.9% 50 ml @ 100 mls/hr IVPB Q24HR [facility] Rx#:[id number] Oral 810 270 Output: Urine 400 Other: Voiding Method Urinal # Voids 1 2 - Exam Gen: 82-year-old pleasant male, no acute distress, resting comfortably HEENT: Head is atraumatic, normocephalic. Pupils equal, round. Sclerae is anicteric. NECK: Supple. No JVD. No lymphadenopathy. No thyromegaly. LUNGS: Clear to auscultation. No wheezes or rhonchi. No intercostal retractions. HEART: Regular rate and rhythm. No murmur. ABDOMEN: Soft. Bowel sounds are present. No masses. No tenderness. EXTREMITIES: No pedal edema. No calf tenderness. NEUROLOGICAL: Patient is awake, alert and oriented x3. Cranial nerves 2 through 12 are grossly intact. - Labs CBC & Chem 7: 02/10/18 06:50 02/10/18 06:50 Assessment and Plan Plan: 1. Multiple falls likely secondary to dehydration and acute UTI. We will start patient on slow hydration with and is at 50 mL/h. Watch input and output. Urine culture negative Rocheena DC'd. Patient has a significant history of ischemic cardiomyopathy cardiology ruled out cardiogenic syncope will interrogate the pacemaker 2 history of cholecystitis Status post lap cholecystectomy on November 22 3. History of Acute pancreatitis secondary to gallstones. 4. h/o V. fib/V. tach - Continue amiodarone 200 mg po daily 5. CAD post [place] with cardiac arrest status post PCI back in 2013. Continue metoprolol 25 mg orally twice every day, amlodipine 12.5 mg by mouth daily, lisinopril 5 mg by mouth daily, aspirin 81 mg orally once every day continue Plavix 75 mg by mouth daily 6. Hyperlipidemia. Continue patient on low-cholesterol diet. 7. Hypertension. Continue metoprolol 25 mg orally twice every day, Imuran drawn 12.5 mg by mouth daily, lisinopril 5 mg by mouth daily 8. Post partial thyroidectomy. 9. AMD. Stable at this point in time. 10. History of PUD. Continue Protonix 40 mg orally once every day. 11. Osteoarthritis. Stable. 12. Ischemic cardiomyopathy s/p AICD Stable at this time ejection fraction similar to the previous echo 13. DVT prophylaxis. Lovenox 40 mg subcutaneously every 24 hours. 14. GI prophylaxis. Protonix 40 mg orally once every day. 15. Medical debility. The patient will need to go for subacute rehabilitation PT OT 15 abdominal pain likely secondary to constipation Colace and MiraLAX initiated. improved with medication 16. Disposition - D/c to [facility] Impression and plan of care have been directed as dictated by the signing physician. Pretty Woodward nurse practitioner acting as scribe for signing physician.
--- NOTE | 2018-02-13 15:59 | P.PN ---
Subjective Progress Note Date: 02/13/18 Patient seen in Neurology follow-up today for evaluation of generalized weakness and TIA like symptoms. The patient is doing much better today. The patient is sitting up in his chair and is doing quite well today. He seems to be doing better today than yesterday. Patient clearly seems to be doing better today in terms of his mental status and strength. He is being considered for discharge tomorrow to [facility] for ongoing subacute rehab. He is awaiting insurance clearance for his discharge to rehab possibly on Wednesday. His generalized weakness is likely multifactorial in nature and a big contribution from his recent urinary tract infection and dehydration. He has no evidence to suggest cardiogenic syncope at this time. Would recommend strongly that he consider subacute rehab at least for 1-2 weeks following discharge. The patient otherwise seems to be doing quite well and shows improvement in his mental status today as compared to yesterday as well. He has been sitting up in the chair most of the day and has not had any difficulties. He seems to be much more awake and conversant and able to communicate fairly easily. He feels there is slight improvement in his strength as well but is looking forward to subacute rehab at [facility]. Patient has a hard cervical collar in place and will be following up with the orthopedic medical program specialist next week. He denies any radicular pain associated with this cervical disc history. His cervical collar has been adjusted today and he shows no evidence of any facial droop or weakness. The patient otherwise seems to be doing well and is eating his lunch. The patient denies any new symptoms. He continues to use a cervical hard collar which helps maintain his neck position. He is to follow-up with orthopedic spine surgery as outpatient for this condition. He states he will most likely be discharged to [facility] on Wednesday. We will continue close neurological follow-up of this patient during this admission. Objective - Vital Signs Vital signs: Vital Signs Temp 98.0 F 02/13/18 15:00 Pulse 60 02/13/18 15:00 Resp 15 02/13/18 15:00 BP 118/66 02/13/18 15:00 Pulse Ox 99 02/13/18 15:00 Intake & Output 02/12/18 02/13/18 02/13/18 18:59 06:59 18:59 Intake Total 860 270 240 Output Total 400 Balance 460 270 240 Intake: Intake, IV Titration 50 Amount cefTRIAXone 1,000 mg In 50 Sodium Chloride 0.9% 50 ml @ 100 mls/hr IVPB Q24HR [facility] Rx#:[id number] Oral 810 270 240 Output: Urine 400 Other: Voiding Method Urinal # Voids 1 2 2 # Bowel Movements 1 - Exam Physical Examination: PHYSICAL EXAMINATION: Patient is resting comfortably in bed. VITAL SIGNS: Blood pressure is [118/67]. Heart rate is [60]. Respiration is [15] . Temperature is [98.0]. HEENT: Head is atraumatic, neck is supple, there were no carotid bruits. CHEST: Lungs are clear to auscultation and percussion. CARDIAC: S1, S2 normal rate and rhythm. There is no murmur. ABDOMEN: Soft and nontender. Bowel sounds are present. EXTREMITIES: There is no pedal edema. Peripheral pulses are present. Neurological examination: Patient's neurological examination is nonfocal at this time. Patient is sitting up in chair next to his bedside. He is more awake and alert today. He is following all commands. He has some generalized weakness. He does have his cervical hard collar in place and is sitting up in chair at bedside. - Labs CBC & Chem 7: 02/10/18 06:50 02/10/18 06:50 Assessment and Plan (1) Ischemic cardiomyopathy Current Visit: Yes Status: Acute Code(s): I25.5 - ISCHEMIC CARDIOMYOPATHY SNOMED Code(s): 172001002 (2) History of implantable cardioverter-defibrillator (ICD) placement Current Visit: Yes Status: Acute Code(s): Z95.810 - PRESENCE OF AUTOMATIC ( IMPLANTABLE) CARDIAC DEFIBRILLATOR SNOMED Code(s): 398030894 (3) Multiple falls Current Visit: Yes Status: Acute Code(s): R29.6 - REPEATED FALLS SNOMED Code(s): 106236750 (4) Cervical compression fracture Current Visit: Yes Status: Acute Code(s): S12.9XXA - FRACTURE OF NECK, UNSPECIFIED, INITIAL ENCOUNTER SNOMED Code(s): 969510772 (5) Chronic systolic CHF (congestive heart failure) Current Visit: Yes Status: Acute Code(s): I50.22 - CHRONIC SYSTOLIC ( CONGESTIVE) HEART FAILURE SNOMED Code(s): 718592797 (6) Dehydration Current Visit: No Status: Acute Code(s): E86.0 - DEHYDRATION SNOMED Code(s ): 19606117 (7) Weakness Current Visit: No Status: Acute Code(s): R53.1 - WEAKNESS SNOMED Code(s): 91053431 Plan: This patient is a pleasant 82-year-old male who continues to show good improvement in his overall medical condition. He is sitting up in chair today and is more awake and alert. He has a cervical collar in place which remained stable. He continues to have generalized weakness and is awaiting transfer to the subacute rehab unit at [facility]. He is only awaiting insurance clearance and will possibly be able to transfer tomorrow to the [facility]. The patient otherwise seems to be doing quite well. He denies any new symptoms of confusion or disorientation. As noted his generalized weakness is felt to be multifactorial. Patient is sitting up in chair next to his bedside today. He does have his hard cervical collar in place. He does not show any signs of facial asymmetry once his collar is adjusted. He would benefit from ongoing subacute rehab at [facility]. He has been sitting up in the chair most of the day today. He states he has noted slight improvement in muscle strength in general. He is anticipating possible discharge to [facility] may be on Wednesday. Patient is sitting up at bedside in his chair today and has had no new complaints. Once again he is anticipating discharge to the retirement tomorrow morning. We would recommend he continue with aggressive PT/ OT evaluation at the nursing facility. We recommend he follow-up with orthopedic spine surgery in the outpatient clinic as scheduled in February. We will continue close neurological follow-up for the patient during this admission. His overall prognosis at this time remains guarded.
[2018-02-13] MEDS: ATORVASTATIN 80 MG TAB PO SCH (21:12)
[2018-02-14] MEDS: CLOPIDOGREL 75 MG TAB PO SCH (09:17)
[2018-02-14] MEDS: LISINOPRIL 10 MG TAB PO SCH (09:17)
[2018-02-14] MEDS: METOPROLOL TARTRATE 50 MG TAB PO SCH ×2 (09:17→20:52)
[2018-02-14] MEDS: SPIRONOLACTONE 25 MG TAB PO SCH (09:17)
[2018-02-14] MEDS: ASPIRIN 81 MG PO SCH (09:17)
[2018-02-14] MEDS: PANTOPRAZOLE 40 MG TABLET PO SCH (09:17)
[2018-02-14] MEDS: AMIODARONE 200 MG TAB PO SCH (09:17)
--- NOTE | 2018-02-14 12:14 | P.PN ---
Subjective Progress Note Date: 02/14/18 This is an 82-year-old male one of Dr. 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 History of partial thyroidectomy Patient was admitted in February 2016 for dizziness and subsequently his ICD fired first time and it did fire again the second time V. fib V. tach was detected. ICD was interrogated and adjusted from 25-35 J. Last admission in 2016 for hyponatremia. Last admitted in November 2017 for pancreatitis secondary to gallstones with cholecystitis and ascending cholangitis it is post cholecystectomy by Dr. Pulido. Patient was also noted to be in V. fib and V. tach, Echocardiogram was obtained which suggested EF of 25-30% with severe global hypokinesia. Patient comes in today with multiple falls that started 3 days ago. Has history of cervical fracture for which patient is wearing the neck collar. Patient is complaining of increased weakness on evaluation in the ER vitals evaluated suggested temp of 97.2 heart rate 67 respiratory rate 16 blood pressure 140/74 saturating well on room air at 93%. Patient did give a history of some bloating and upper abdominal pain but denies any history of nausea, vomiting or diarrhea no dark stools or melena. He denies any chest pain or shortness of breath denies any palpitation or history of AICD firing. His echocardiogram obtained during the last visit in November 2017 suggest EF of 20- 25%. Labs obtained marketable CBC and a CMP with a urinalysis suggestive of infection. Urine culture ordered. Patient initiated on Rocephin 1 g every 24 hours. Orthostatics will be obtained BNP is 1900 non-suggestive of CHF exacerbation. Cardiology evaluation to rule out cardiogenic syncope. Orthostatics ordered to rule out orthostatic hypotension 02/08 patient feels weak and lethargic unable to come out of bed. Completed 25 % of meal this morning. He denies any dizziness lightheadedness. Denies any nausea vomiting does endorse bloating and upper abdominal pain. He does have history of constipation we'll initiate MiraLAX and Colace. We'll get abdominal x-ray to rule out any obstruction or ileus 02/09 patient is sitting in the chair. Did have a event last night where family noticed slurring of speech. CT head was ordered with no acute intracranial findings. Neurology evaluated the patient and does not suspect stroke. Orthostatics were negative. Patient generalized weakness is likely secondary to UTI. Continue antibiotics. Urine culture was not sent on admission. Ordered urine culture. PTOT evaluation pending Patient examined in the chair. Appears better than yesterday. Patient does have generalized weakness and would benefit from rehab. Patient is medically stable to be discharged once [facility] is APPROVED. 02/11-carmen in examining chair. He is alert oriented 3. Denies any abdominal pain. He had 2 bowel movements yesterday. Continues have significant weakness on moving around the room. [facility] has accepted the patient awaiting prior authorization from insurance. Likely discharged Monday 02/12: Patient is resting comfortably in a chair. He is alert and oriented 3. He denies any chest pain, shortness of breath, or abdominal pain. Patient continues to have weakness on moving around in the room. He has been accepted to go to [facility] and a call was paced to case management to see if he be able to go today. If he is not able to go he will likely be discharged on Wednesday. 02/13: Patient is resting comfortably in the chair. He is alert and oriented 3. Patient denies any chest pain, shortness of breath, or abdominal pain. Patient has been up and about in his room without any difficulties. Patient has been accepted to go to [facility] and will be going on Wednesday. 02/14: Patient is resting comfortably in bed. Niece is at the bedside. Patient is alert and orientated 3. Patient denies any chest pain, shortness of breath, or dental pain. Patient has been waiting to go to [facility] which will hopefully happen today however due to the patient's condition improving social work will be in to see patient to discuss possibly going home with home care. ROS Constitutional: Denies chills, Denies fever, endorses lethargy, Denies malaise , Denies poor appetite, in endorses weakness, Denies weight loss Cardiovascular: Denies chest pain, Denies decreased exercise tolerance, Denies edema, Denies high blood pressure, Denies irregular heart beat, Denies palpitations, Denies paroxysmal nocturnal dyspnea, Denies rapid heart beat, Denies shortness of breath Respiratory: Denies congestion, Denies cough, Denies cough with sputum, Denies dyspnea, Denies home oxygen, Denies wheezing Gastrointestinal: resolved abdominal pain, Denies change in bowel habits, Denies coffee ground emesis, Denies early satiety, Denies excessive gas, Denies heartburn, Denies hematemesis, Denies hematochezia, Denies loss of appetite, Denies nausea, Denies vomiting, constipation resolved Genitourinary: Denies dysuria, Denies flank pain, Denies kidney stones, Denies menorrhagia, Denies urgency, Denies urinary frequency Musculoskeletal: Denies gait dysfunction, Denies limitation of motion, Denies morning stiffness, Denies muscle cramps, limited neck mobility with neck collar Integumentary: Denies rash, Denies wounds, Denies brittle nails, Denies change in hair/nails, Denies darkening of skin Neurological: Denies balance difficulties, Denies change in speech, Denies double vision, Denies gait dysfunction, Denies loss of vision, Denies motor disturbance, Denies numbness, Denies paralysis, Denies paresthesias, Denies seizures Psychiatric: Denies anxiety, Denies depression Endocrine: Denies excessive sweating, Denies excessive thirst, Denies high blood sugars, Denies palpitations Hematologic/Lymphatic: Denies easy bruising, Denies lymphadenopathy Objective - Vital Signs Vital signs: Vital Signs Temp 97.5 F L 02/14/18 09:25 Pulse 60 02/14/18 09:25 Resp 16 02/14/18 09:26 BP 148/75 02/14/18 09:25 Pulse Ox 97 02/14/18 09:25 Intake & Output 02/13/18 02/14/18 02/14/18 18:59 06:59 18:59 Intake Total 490 1040 Output Total 400 Balance 490 640 Weight 87.543 kg Intake: Oral 490 1040 Output: Urine 400 Other: Voiding Method Toilet # Voids 2 1 # Bowel Movements 1 - Exam Gen: 82-year-old pleasant male, no acute distress, resting comfortably HEENT: Head is atraumatic, normocephalic. Pupils equal, round. Sclerae is anicteric. NECK: Supple. No JVD. No lymphadenopathy. No thyromegaly. LUNGS: Clear to auscultation. No wheezes or rhonchi. No intercostal retractions. HEART: Regular rate and rhythm. No murmur. ABDOMEN: Soft. Bowel sounds are present. No masses. No tenderness. EXTREMITIES: No pedal edema. No calf tenderness. NEUROLOGICAL: Patient is awake, alert and oriented x3. Cranial nerves 2 through 12 are grossly intact. - Labs CBC & Chem 7: 02/10/18 06:50 02/10/18 06:50 Assessment and Plan Plan: 1. Multiple falls likely secondary to dehydration and acute UTI. We will start patient on slow hydration with and is at 50 mL/h. Watch input and output. Urine culture negative Rocephin DC'd. Patient has a significant history of ischemic cardiomyopathy cardiology ruled out cardiogenic syncope will interrogate the pacemaker. 2 history of cholecystitis Status post lap cholecystectomy on November 22 3. History of Acute pancreatitis secondary to gallstones. 4. h/o V. fib/V. tach - Continue amiodarone 200 mg po daily 5. CAD post PR with cardiac arrest status post PCI back in 2013. Continue metoprolol 25 mg orally twice every day, amlodipine 12.5 mg by mouth daily, lisinopril 5 mg by mouth daily, aspirin 81 mg orally once every day continue Plavix 75 mg by mouth daily 6. Hyperlipidemia. Continue patient on low-cholesterol diet. 7. Hypertension. Continue metoprolol 25 mg orally twice every day, Imuran drawn 12.5 mg by mouth daily, lisinopril 5 mg by mouth daily 8. Post partial thyroidectomy. 9. AMD. Stable at this point in time. 10. History of PUD. Continue Protonix 40 mg orally once every day. 11. Osteoarthritis. Stable. 12. Ischemic cardiomyopathy s/p AICD Stable at this time ejection fraction similar to the previous echo 13. DVT prophylaxis. Lovenox 40 mg subcutaneously every 24 hours. 14. GI prophylaxis. Protonix 40 mg orally once every day. 15. Medical debility. The patient will need to go for subacute rehabilitation PT OT 15 abdominal pain likely secondary to constipation Colace and MiraLAX initiated. improved with medication 16. Disposition - D/c to [facility] Impression and plan of care have been directed as dictated by the signing physician. Pretty Woodward nurse practitioner acting as scribe for signing physician.
--- NOTE | 2018-02-14 20:27 | P.PN ---
Subjective Progress Note Date: 02/14/18 Patient seen in Neurology follow-up today for evaluation of generalized weakness and TIA like symptoms. The patient is doing much better today. The patient is sitting up in his chair and is doing quite well today. He seems to be doing better today than yesterday. Patient clearly seems to be doing better today in terms of his mental status and strength. He is being considered for discharge tomorrow to [facility] for ongoing subacute rehab. He is awaiting insurance clearance for his discharge to rehab possibly on Wednesday. His generalized weakness is likely multifactorial in nature and a big contribution from his recent urinary tract infection and dehydration. He has no evidence to suggest cardiogenic syncope at this time. Would recommend strongly that he consider subacute rehab at least for 1-2 weeks following discharge. The patient otherwise seems to be doing quite well and shows improvement in his mental status today as compared to yesterday as well. He has been sitting up in the chair most of the day and has not had any difficulties. He seems to be much more awake and conversant and able to communicate fairly easily. He feels there is slight improvement in his strength as well but is looking forward to subacute rehab at [facility]. Patient has a hard cervical collar in place and will be following up with the orthopedic loan operations specialist next week. He denies any radicular pain associated with this cervical disc history. His cervical collar has been adjusted today and he shows no evidence of any facial droop or weakness. The patient otherwise seems to be doing well and is eating his lunch. The patient denies any new symptoms. He continues to use a cervical hard collar which helps maintain his neck position. He is to follow-up with orthopedic spine surgery as outpatient for this condition. Patient states he is just waiting on insurance clearance so that he may be discharged to the [facility]. He states he will most likely be discharged to [facility] on Wednesday. We will continue close neurological follow-up of this patient during this admission. Objective - Vital Signs Vital signs: Vital Signs Temp 98.1 F 02/14/18 14:36 Pulse 59 L 02/14/18 14:36 Resp 17 02/14/18 16:30 BP 109/57 02/14/18 14:36 Pulse Ox 97 02/14/18 14:36 Intake & Output 02/13/18 02/14/1802/14/18 18:59 06:59 18:59 Intake Total 490 1040 Output Total 400 Balance 490 640 Weight 87.543 kg Intake: Oral 490 1040 Output: Urine 400 Other: Voiding Method Toilet # Voids 2 1 1 # Bowel Movements 1 - Exam Physical Examination: PHYSICAL EXAMINATION: Patient is resting comfortably in bed. VITAL SIGNS: Blood pressure is [148/75]. Heart rate is [60]. Respiration is [16] . Temperature is [97.5]. HEENT: Head is atraumatic, neck is supple, there were no carotid bruits. CHEST: Lungs are clear to auscultation and percussion. CARDIAC: S1, S2 normal rate and rhythm. There is no murmur. ABDOMEN: Soft and nontender. Bowel sounds are present. EXTREMITIES: There is no pedal edema. Peripheral pulses are present. Neurological examination: Patient's neurological examination is nonfocal at this time. Patient is sitting up in chair next to his bedside. He is more awake and alert today. He is following all commands. He has some generalized weakness. He does have his cervical hard collar in place and is sitting up in chair at bedside. - Labs CBC & Chem 7: 02/10/18 06:50 02/10/18 06:50 Assessment and Plan (1) Ischemic cardiomyopathy Current Visit: Yes Status: Acute Code(s): I25.5 - ISCHEMIC CARDIOMYOPATHY SNOMED Code(s): 970842423 (2) History of implantable cardioverter-defibrillator (ICD) placement Current Visit: Yes Status: Acute Code(s): Z95.810 - PRESENCE OF AUTOMATIC ( IMPLANTABLE) CARDIAC DEFIBRILLATOR SNOMED Code(s): 103484226 (3) Multiple falls Current Visit: Yes Status: Acute Code(s): R29.6 - REPEATED FALLS SNOMED Code(s): 758745749 (4) Cervical compression fracture Current Visit: Yes Status: Acute Code(s): S12.9XXA - FRACTURE OF NECK, UNSPECIFIED, INITIAL ENCOUNTER SNOMED Code(s): 500390873 (5) Chronic systolic CHF (congestive heart failure) Current Visit: Yes Status: Acute Code(s): I50.22 - CHRONIC SYSTOLIC ( CONGESTIVE) HEART FAILURE SNOMED Code(s): 550178443 (6) Dehydration Current Visit: No Status: Acute Code(s): E86.0 - DEHYDRATION SNOMED Code(s ): 79740217 (7) Weakness Current Visit: No Status: Acute Code(s): R53.1 - WEAKNESS SNOMED Code(s): 30425553 Plan: This patient is a pleasant 82-year-old male who continues to show good improvement in his overall medical condition. He is sitting up in chair today and is more awake and alert. He has a cervical collar in place which remained stable. He continues to have generalized weakness and is awaiting transfer to the subacute rehab unit at [facility]. He is only awaiting insurance clearance and will possibly be able to transfer tomorrow to the [facility]. The patient otherwise seems to be doing quite well. He denies any new symptoms of confusion or disorientation. As noted his generalized weakness is felt to be multifactorial. Patient is sitting up in chair next to his bedside today. He does have his hard cervical collar in place. He does not show any signs of facial asymmetry once his collar is adjusted. He would benefit from ongoing subacute rehab at [facility]. He has been sitting up in the chair most of the day today. He states he has noted slight improvement in muscle strength in general. He is anticipating possible discharge to [facility] may be on Wednesday. Patient states his only hold up his insurance clearance. He has been sitting up in his chair earlier today and is now able to lay down in his bed. Patient is sitting up at bedside in his chair today and has had no new complaints. Once again he is anticipating discharge to the alf tomorrow morning. We would recommend he continue with aggressive PT/ OT evaluation at the nursing facility. We recommend he follow- up with orthopedic spine surgery in the outpatient clinic as scheduled in February. We will continue close neurological follow-up for the patient during this admission. His overall prognosis at this time remains guarded.
[2018-02-14] MEDS: ATORVASTATIN 80 MG TAB PO SCH (22:45)
--- NOTE | 2018-02-15 11:11 | P.PN ---
Subjective Progress Note Date: 02/15/18 This is an 82-year-old male one of Dr. 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 History of partial thyroidectomy Patient was admitted in February 2016 for dizziness and subsequently his ICD fired first time and it did fire again the second time V. fib V. tach was detected. ICD was interrogated and adjusted from 25-35 J. Last admission in 2016 for hyponatremia. Last admitted in November 2017 for pancreatitis secondary to gallstones with cholecystitis and ascending cholangitis it is post cholecystectomy by Dr. Pulido. Patient was also noted to be in V. fib and V. tach, Echocardiogram was obtained which suggested EF of 25-30% with severe global hypokinesia. Patient comes in today with multiple falls that started 3 days ago. Has history of cervical fracture for which patient is wearing the neck collar. Patient is complaining of increased weakness on evaluation in the ER vitals evaluated suggested temp of 97.2 heart rate 67 respiratory rate 16 blood pressure 140/74 saturating well on room air at 93%. Patient did give a history of some bloating and upper abdominal pain but denies any history of nausea, vomiting or diarrhea no dark stools or melena. He denies any chest pain or shortness of breath denies any palpitation or history of AICD firing. His echocardiogram obtained during the last visit in November 2017 suggest EF of 20- 25%. Labs obtained marketable CBC and a CMP with a urinalysis suggestive of infection. Urine culture ordered. Patient initiated on Rocephin 1 g every 24 hours. Orthostatics will be obtained BNP is 1900 non-suggestive of CHF exacerbation. Cardiology evaluation to rule out cardiogenic syncope. Orthostatics ordered to rule out orthostatic hypotension 02/08 patient feels weak and lethargic unable to come out of bed. Completed 25 % of meal this morning. He denies any dizziness lightheadedness. Denies any nausea vomiting does endorse bloating and upper abdominal pain. He does have history of constipation we'll initiate MiraLAX and Colace. We'll get abdominal x-ray to rule out any obstruction or ileus 02/09 patient is sitting in the chair. Did have a event last night where family noticed slurring of speech. CT head was ordered with no acute intracranial findings. Neurology evaluated the patient and does not suspect stroke. Orthostatics were negative. Patient generalized weakness is likely secondary to UTI. Continue antibiotics. Urine culture was not sent on admission. Ordered urine culture. PTOT evaluation pending Patient examined in the chair. Appears better than yesterday. Patient does have generalized weakness and would benefit from rehab. Patient is medically stable to be discharged once [facility]auth from [facility] [place] is APPROVED. 02/11-carmen in examining chair. He is alert oriented 3. Denies any abdominal pain. He had 2 bowel movements yesterday. Continues have significant weakness on moving around the room. [facility] has accepted the patient awaiting prior authorization from insurance. Likely discharged Monday 02/12: Patient is resting comfortably in a chair. He is alert and oriented 3. He denies any chest pain, shortness of breath, or abdominal pain. Patient continues to have weakness on moving around in the room. He has been accepted to go to [facility] and a call was paced to case management to see if he be able to go today. If he is not able to go he will likely be discharged on Wednesday. 02/13: Patient is resting comfortably in the chair. He is alert and oriented 3. Patient denies any chest pain, shortness of breath, or abdominal pain. Patient has been up and about in his room without any difficulties. Patient has been accepted to go to [facility] and will be going on Wednesday. 02/14: Patient is resting comfortably in bed. Niece is at the bedside. Patient is alert and orientated 3. Patient denies any chest pain, shortness of breath, or abdominal pain. Patient has been waiting to go to [facility] which will hopefully happen today however due to the patient's condition improving social work will be in to see patient to discuss possibly going home with home care. 02/15/18: Patient is resting comfortably in a chair. At this time we are waiting for approval from [employer] so the patient can qualify to go to an extended care facility. However due to the holiday we are waiting for information on that. Patient denies any chest pain, shortness of breath, or abdominal pain. Patient is concerned that he is not able to go home without some form of help. Discussed with patient that if he does need to go home that we will set up home care for him. ROS Constitutional: Denies chills, Denies fever, endorses lethargy, Denies malaise , Denies poor appetite, in endorses weakness, Denies weight loss Cardiovascular: Denies chest pain, Denies decreased exercise tolerance, Denies edema, Denies high blood pressure, Denies irregular heart beat, Denies palpitations, Denies paroxysmal nocturnal dyspnea, Denies rapid heart beat, Denies shortness of breath Respiratory: Denies congestion, Denies cough, Denies cough with sputum, Denies dyspnea, Denies home oxygen, Denies wheezing Gastrointestinal: resolved abdominal pain, Denies change in bowel habits, Denies coffee ground emesis, Denies early satiety, Denies excessive gas, Denies heartburn, Denies hematemesis, Denies hematochezia, Denies loss of appetite, Denies nausea, Denies vomiting, constipation resolved Genitourinary: Denies dysuria, Denies flank pain, Denies kidney stones, Denies menorrhagia, Denies urgency, Denies urinary frequency Musculoskeletal: Denies gait dysfunction, Denies limitation of motion, Denies morning stiffness, Denies muscle cramps, limited neck mobility with neck collar Integumentary: Denies rash, Denies wounds, Denies brittle nails, Denies change in hair/nails, Denies darkening of skin Neurological: Denies balance difficulties, Denies change in speech, Denies double vision, Denies gait dysfunction, Denies loss of vision, Denies motor disturbance, Denies numbness, Denies paralysis, Denies paresthesias, Denies seizures Psychiatric: Denies anxiety, Denies depression Endocrine: Denies excessive sweating, Denies excessive thirst, Denies high blood sugars, Denies palpitations Hematologic/Lymphatic: Denies easy bruising, Denies lymphadenopathy Objective - Vital Signs Vital signs: Vital Signs Temp 98.2 F 02/14/18 23:00 Pulse 65 02/14/18 23:00 Resp 17 02/14/18 23:00 BP 118/63 02/14/18 23:00 Pulse Ox 92 L 02/14/18 23:00 Intake & Output 02/14/18 02/15/18 02/15/18 18:59 06:59 18:59 Intake Total 236 Balance 236 Weight 87.543 kg Intake: Oral 236 Other: # Voids 1 3 - Exam Gen: 82-year-old pleasant male, no acute distress, resting comfortably HEENT: Head is atraumatic, normocephalic. Pupils equal, round. Sclerae is anicteric. NECK: Supple. No JVD. No lymphadenopathy. No thyromegaly. LUNGS: Clear to auscultation. No wheezes or rhonchi. No intercostal retractions. HEART: Regular rate and rhythm. No murmur. ABDOMEN: Soft. Bowel sounds are present. No masses. No tenderness. EXTREMITIES: No pedal edema. No calf tenderness. NEUROLOGICAL: Patient is awake, alert and oriented x3. Cranial nerves 2 through 12 are grossly intact. - Labs CBC & Chem 7: 02/10/18 06:50 02/10/18 06:50 Assessment and Plan Plan: 1. Multiple falls likely secondary to dehydration and acute UTI. We will start patient on slow hydration with and is at 50 mL/h. Watch input and output. Urine culture negative Sukhwinder DC'd. Patient has a significant history of ischemic cardiomyopathy cardiology ruled out cardiogenic syncope will interrogate the pacemaker. 2 history of cholecystitis Status post lap cholecystectomy on November 22 3. History of Acute pancreatitis secondary to gallstones. 4. h/o V. fib/V. tach - Continue amiodarone 200 mg po daily 5. CAD post [place] with cardiac arrest status post PCI back in 2013. Continue metoprolol 25 mg orally twice every day, amlodipine 12.5 mg by mouth daily, lisinopril 5 mg by mouth daily, aspirin 81 mg orally once every day continue Plavix 75 mg by mouth daily 6. Hyperlipidemia. Continue patient on low-cholesterol diet. 7. Hypertension. Continue metoprolol 25 mg orally twice every day, Imuran drawn 12.5 mg by mouth daily, lisinopril 5 mg by mouth daily 8. Post partial thyroidectomy. 9. AMD. Stable at this point in time. 10. History of PUD. Continue Protonix 40 mg orally once every day. 11. Osteoarthritis. Stable. 12. Ischemic cardiomyopathy s/p AICD Stable at this time ejection fraction similar to the previous echo 13. DVT prophylaxis. Lovenox 40 mg subcutaneously every 24 hours. 14. GI prophylaxis. Protonix 40 mg orally once every day. 15. Medical debility. The patient will need to go for subacute rehabilitation PT OT 15 abdominal pain likely secondary to constipation Colace and MiraLAX initiated. improved with medication 16. Disposition - D/c to [facility] awaiting approval. If not except the patient will go home with homecare. Impression and plan of care have been directed as dictated by the signing physician. Pretty Woodward nurse practitioner acting as scribe for signing physician.
[2018-02-15 11:36] VITALS: RESP 16
[2018-02-15] MEDS: CLOPIDOGREL 75 MG TAB PO SCH (11:37)
[2018-02-15] MEDS: ASPIRIN 81 MG PO SCH (11:37)
[2018-02-15] MEDS: PANTOPRAZOLE 40 MG TABLET PO SCH (11:37)
[2018-02-15] MEDS: SPIRONOLACTONE 25 MG TAB PO SCH (11:37)
[2018-02-15] MEDS: AMIODARONE 200 MG TAB PO SCH (11:37)
[2018-02-15] MEDS: LISINOPRIL 10 MG TAB PO SCH (11:37)
[2018-02-15] MEDS: METOPROLOL TARTRATE 50 MG TAB PO SCH ×2 (11:37→20:36)
[2018-02-15] MEDS: ATORVASTATIN 80 MG TAB PO SCH (20:36)
[2018-02-16] MEDS: SPIRONOLACTONE 25 MG TAB PO SCH (08:47)
[2018-02-16] MEDS: PANTOPRAZOLE 40 MG TABLET PO SCH (08:47)
[2018-02-16] MEDS: METOPROLOL TARTRATE 50 MG TAB PO SCH (08:47)
[2018-02-16] MEDS: AMIODARONE 200 MG TAB PO SCH (08:47)
[2018-02-16] MEDS: ASPIRIN 81 MG PO SCH (08:47)
[2018-02-16] MEDS: LISINOPRIL 10 MG TAB PO SCH (08:47)
[2018-02-16] MEDS: CLOPIDOGREL 75 MG TAB PO SCH (08:48)
--- NOTE | 2018-02-16 14:21 | P.DS ---
Providers Date of admission: 02/07/18 17:45 Expected date of discharge: 02/16/18 Attending physician: Lloyd Morales MD Consults: 02/07/18 12:52 Consult Physician Routine Consulting Provider: Joao Renteria Consult Reason/Comments: falls, r/o cardiogenic syncope Do you want consulting provider notified?: Yes 02/08/18 18:04 Consult Physician Routine Consulting Provider: Sd Alicia Consult Reason/Comments: Stroke Symptoms Do you want consulting provider notified?: Yes Primary care physician: [facility] Course: This is an 82-year-old male one of Dr. 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 History of partial thyroidectomy Patient was admitted in February 2016 for dizziness and subsequently his ICD fired first time and it did fire again the second time V. fib V. tach was detected. ICD was interrogated and adjusted from 25-35 J. Last admission in 2016 for hyponatremia. Last admitted in November 2017 for pancreatitis secondary to gallstones with cholecystitis and ascending cholangitis it is post cholecystectomy by Dr. Pulido. Patient was also noted to be in V. fib and V. tach, Echocardiogram was obtained which suggested EF of 25-30% with severe global hypokinesia. Patient comes in today with multiple falls that started 3 days ago. Has history of cervical fracture for which patient is wearing the neck collar. Patient is complaining of increased weakness on evaluation in the ER vitals evaluated suggested temp of 97.2 heart rate 67 respiratory rate 16 blood pressure 140/74 saturating well on room air at 93%. Patient did give a history of some bloating and upper abdominal pain but denies any history of nausea, vomiting or diarrhea no dark stools or melena. He denies any chest pain or shortness of breath denies any palpitation or history of AICD firing. His echocardiogram obtained during the last visit in November 2017 suggest EF of 20- 25%. Labs obtained marketable CBC and a CMP with a urinalysis suggestive of infection. Urine culture ordered. Patient initiated on Rocephin 1 g every 24 hours. Orthostatics will be obtained BNP is 1900 non-suggestive of CHF exacerbation. Cardiology evaluation to rule out cardiogenic syncope. Orthostatics ordered to rule out orthostatic hypotension 02/08 patient feels weak and lethargic unable to come out of bed. Completed 25 % of meal this morning. He denies any dizziness lightheadedness. Denies any nausea vomiting does endorse bloating and upper abdominal pain. He does have history of constipation we'll initiate MiraLAX and Colace. We'll get abdominal x-ray to rule out any obstruction or ileus 02/09 patient is sitting in the chair. Did have a event last night where family noticed slurring of speech. CT head was ordered with no acute intracranial findings. Neurology evaluated the patient and does not suspect stroke. Orthostatics were negative. Patient generalized weakness is likely secondary to UTI. Continue antibiotics. Urine culture was not sent on admission. Ordered urine culture. PTOT evaluation pending Patient examined in the chair. Appears better than yesterday. Patient does have generalized weakness and would benefit from rehab. Patient is medically stable to be discharged once [facility]auth from [facility] is APPROVED. 02/11-carmen in examining chair. He is alert oriented 3. Denies any abdominal pain. He had 2 bowel movements yesterday. Continues have significant weakness on moving around the room. [facility] has accepted the patient awaiting prior authorization from insurance. Likely discharged Monday 02/12: Patient is resting comfortably in a chair. He is alert and oriented 3. He denies any chest pain, shortness of breath, or abdominal pain. Patient continues to have weakness on moving around in the room. He has been accepted to go to [facility] and a call was paced to case management to see if he be able to go today. If he is not able to go he will likely be discharged on Wednesday. 02/13: Patient is resting comfortably in the chair. He is alert and oriented 3. Patient denies any chest pain, shortness of breath, or abdominal pain. Patient has been up and about in his room without any difficulties. Patient has been accepted to go to [facility] and will be going on Wednesday. 02/14: Patient is resting comfortably in bed. Niece is at the bedside. Patient is alert and orientated 3. Patient denies any chest pain, shortness of breath, or abdominal pain. Patient has been waiting to go to [facility] which will hopefully happen today however due to the patient's condition improving social work will be in to see patient to discuss possibly going home with home care. 02/15/18: Patient is resting comfortably in a chair. At this time we are waiting for approval from [facility] so the patient can qualify to go to an extended care facility. However due to the holiday we are waiting for information on that. Patient denies any chest pain, shortness of breath, or abdominal pain. Patient is concerned that he is not able to go home without some form of help. Discussed with patient that if he does need to go home that we will set up home care for him. 02/16: Insurance has denied authorization for subacute rehab. Discussed this with patient and he is willing to go home. He does have family in the home with him. Patient does have a c-collar in place. Case management will set up home care and patient will be discharged home today in stable condition. Discharge diagnoses: 1. Multiple falls likely secondary to dehydration and acute UTI. 2. History of cholecystitis Status post lap cholecystectomy on November 22 3. History of acute pancreatitis secondary to gallstones. 4. H/o V. fib/V. tach 5. CAD post [place] with cardiac arrest status post PCI back in 2013. 6. Hyperlipidemia. 7. Hypertension. 8. Post partial thyroidectomy. 9. AMD. Stable at this point in time. 10. History of PUD. 11. Osteoarthritis, generalized. Stable. 12. Ischemic cardiomyopathy s/p AICD 13. Medical debility. 14. Abdominal pain likely secondary to constipation Discharge plan: Home with homecare. Impression and plan of care have been directed as dictated by the signing physician. Robyn Lopez nurse practitioner acting as scribe for signing physician. Patient Condition at Discharge: Good Plan - Discharge Summary Discharge Rx Participant: No New Discharge Prescriptions: New Docusate [Colace] 100 mg PO BID cap Polyethylene Glycol 3350 [Miralax] 17 gm PO DAILY powd.pack Cephalexin [Keflex] 250 mg PO Q8HR #18 capsule Continue Atorvastatin [Lipitor] 80 mg PO HS #30 tab Clopidogrel [Plavix] 75 mg PO DAILY Spironolactone [Aldactone] 25 mg PO DAILY Aspirin [Adult Low Dose Aspirin EC] 81 mg PO DAILY Vit A/Vit C/Vit E/Zinc/Copper [ICAPS SOFTGEL] 1 cap PO DAILY Amiodarone [Cordarone] 200 mg PO DAILY Lisinopril [Zestril] 10 mg PO DAILY Metoprolol Tartrate [Lopressor] 25 mg PO BID Omeprazole [PriLOSEC] 20 mg PO DAILY Discharge Medication List Atorvastatin [Lipitor] 80 mg PO HS #30 tab 11/20/13 [Rx] Clopidogrel [Plavix] 75 mg PO DAILY 03/29/14 [History] Spironolactone [Aldactone] 25 mg PO DAILY 12/03/16 [History] Aspirin [Adult Low Dose Aspirin EC] 81 mg PO DAILY 11/16/17 [History] Vit A/Vit C/Vit E/Zinc/Copper [ICAPS SOFTGEL] 1 cap PO DAILY 11/16/17 [History] Amiodarone [Cordarone] 200 mg PO DAILY 12/15/17 [History] Lisinopril [Zestril] 10 mg PO DAILY 12/15/17 [History] Metoprolol Tartrate [Lopressor] 25 mg PO BID 12/15/17 [History] Omeprazole [PriLOSEC] 20 mg PO DAILY 12/15/17 [History] Cephalexin [Keflex] 250 mg PO Q8HR #18 capsule 02/10/18 [Rx] Docusate [Colace] 100 mg PO BID cap 02/10/18 [Rx] Polyethylene Glycol 3350 [Miralax] 17 gm PO DAILY powd.pack 02/10/18 [Rx] Follow up Appointment(s)/Referral(s): David Hassan MD [Primary Care Provider] - 1 Week Discharge Disposition: TRANSFER TO SNF/ECF
[2018-02-16 15:12] VITALS: BP 95/57; PULSE 68; TEMP 97.9
== END 2018-02-16 16:07 | disposition home or self-care (01) | DRG 690 ==
LOC: EC 17:14 → 4SSUR 19:46 → UNDOADMOB 19:46 → 4SSUR 19:59 → INTOOBSV 02-07 17:45 → OBSVTOIN 02-07 17:45 → UNDODISIN 02-16 16:07
PROVIDERS: ADMIT Internal Medicine; ATTEND Internal Medicine
DX: N39.0 Urinary tract infection, site not specified (principal); I50.22 Chronic systolic (congestive) heart failure; G93.49 Other encephalopathy; M48.52XA Collapsed vertebra, not elsewhere classified, cervical region, initial encounter for fracture; E86.0 Dehydration; I11.0 Hypertensive heart disease with heart failure; I25.5 Ischemic cardiomyopathy; E03.9 Hypothyroidism, unspecified; E78.5 Hyperlipidemia, unspecified; K21.9 Gastro-esophageal reflux disease without esophagitis; I25.2 Old myocardial infarction; H35.30 Unspecified macular degeneration; I25.10 Atherosclerotic heart disease of native coronary artery without angina pectoris; M19.90 Unspecified osteoarthritis, unspecified site; N42.9 Disorder of prostate, unspecified; R47.81 Slurred speech; H91.90 Unspecified hearing loss, unspecified ear; R29.6 Repeated falls; Z79.82 Long term (current) use of aspirin; Z79.02 Long term (current) use of antithrombotics/antiplatelets; Z79.899 Other long term (current) drug therapy; Z86.74 Personal history of sudden cardiac arrest; Z91.81 History of falling; Z95.5 Presence of coronary angioplasty implant and graft; Z87.11 Personal history of peptic ulcer disease; Z87.891 Personal history of nicotine dependence; Z95.810 Presence of automatic (implantable) cardiac defibrillator; Z87.19 Personal history of other diseases of the digestive system; Z90.49 Acquired absence of other specified parts of digestive tract; Z96.653 Presence of artificial knee joint, bilateral; Z98.42 Cataract extraction status, left eye; Z98.41 Cataract extraction status, right eye; Z88.8 Allergy status to other drugs, medicaments and biological substances; Z91.040 Latex allergy status; Z82.49 Family history of ischemic heart disease and other diseases of the circulatory system; Z83.3 Family history of diabetes mellitus; Z82.3 Family history of stroke; Z80.0 Family history of malignant neoplasm of digestive organs; Z80.8 Family history of malignant neoplasm of other organs or systems; K59.00 Constipation, unspecified; W19.XXXA Unspecified fall, initial encounter; Y92.239 Unspecified place in hospital as the place of occurrence of the external cause
CPT/HCPCS: 36415; 70450; 71046; 72170; 74018; 80053; 81001; 82550; 83690; 83735; 83880; 84484; 85025; 85610; 85730; 87086; 93005; 93306; 99285

== ENCOUNTER 2018-02-25 05:14 | Emergency (ER) | payer MEDICARE ==
[2018-02-25 05:21] VITALS: RESP 18; TEMP 97.5
--- NOTE | 2018-02-25 05:49 | ED ---
Abdominal Pain HPI - General Chief Complaint: Abdominal Pain Stated Complaint: Flank Pain Time Seen by Provider: 02/25/18 05:32 Source: EMS Mode of arrival: EMS Limitations: no limitations - History of Present Illness Initial Comments: This patient is an 82-year-old man who presents to be evaluated for left flank and left abdomen pain. The patient is concerned that this may be a recurrence of pancreatitis which she has had previously. He states that it had come on approximately 1-2 hours ago. Patient states he had been lying down. He has not had any associated symptoms. He describes pain as being constant sharp and severe. He has not noted any worsening or relieving factors. MD Complaint: flank pain Onset/Timin -: hour(s) Location: L flank Radiation: LUQ Severity: severe Quality: sharp Consistency: constant Improves With: nothing Worsens With: nothing Associated Symptoms: denies other symptoms - Related Data Home Medications Medication Instructions Recorded Confirmed Clopidogrel [Plavix] 75 mg PO DAILY 03/29/14 02/25/18 Spironolactone [Aldactone] 25 mg PO DAILY 12/03/16 02/25/18 Aspirin [Adult Low Dose Aspirin EC] 81 mg PO DAILY 11/16/17 02/25/18 Vit A/Vit C/Vit E/Zinc/Copper 1 cap PO DAILY 11/16/17 02/25/18 [ICAPS SOFTGEL] Amiodarone [Cordarone] 200 mg PO DAILY 12/15/17 02/25/18 Lisinopril [Zestril] 10 mg PO DAILY 12/15/17 02/25/18 Metoprolol Tartrate [Lopressor] 25 mg PO BID 12/15/17 02/25/18 Omeprazole [PriLOSEC] 20 mg PO DAILY 12/15/17 02/25/18 Previous Rx's Medication Instructions Recorded Atorvastatin [Lipitor] 80 mg PO HS #30 tab 11/20/13 Docusate [Colace] 100 mg PO BID cap 02/10/18 Polyethylene Glycol 3350 [Miralax] 17 gm PO DAILY powd.pack 02/10/18 Hydrocodone/Acetaminophen [[place] 1 each PO Q6HR PRN #15 tab 02/25/18 5-325] Tamsulosin [Flomax] 0.4 mg PO DAILY #14 cap 02/25/18 Allergies Allergy/AdvReac Type Severity Reaction Status Date / Time amlodipine besylate Allergy Rash/Hives Verified 02/25/18 07:05 [From Norvasc] isosorbide [From Imdur] Allergy Unknown Verified 02/25/18 07:05 Latex, Natural Rubber Allergy Rash/Hives Verified 02/25/18 07:05 AICD IMPLANT Allergy Unknown Uncoded 02/25/18 05:20 Review of Systems ROS Statement: Those systems with pertinent positive or pertinent negative responses have been documented in the HPI. ROS Other: All systems not noted in ROS Statement are negative. Constitutional: Denies: fever, chills Respiratory: Denies: cough, dyspnea Cardiovascular: Denies: chest pain, palpitations, edema, syncope Gastrointestinal: Reports: abdominal pain. Denies: nausea, vomiting, diarrhea, constipation, melena, hematochezia Genitourinary: Denies: dysuria, hematuria Musculoskeletal: Denies: back pain Skin: Denies: rash Neurological: Denies: weakness, numbness Past Medical History Past Medical History: Coronary Artery Disease (CAD), Heart Failure, Eye Disorder , GERD/Reflux, GI Bleed, Hyperlipidemia, Hypertension, Myocardial Infarction ([place] ), Osteoarthritis (OA), Prostate Disorder, Thyroid Disorder Additional Past Medical History / Comment(s): cardiomyopathy, DENGENERATIVE ARTHRITIS, MACULAR DEGENERATION AND CATARACTS,GI BLEED 2011, fall 11-24-16/ facial inj/bruing/broken front teeth. Last Myocardial Infarction Date:: 1993 History of Any Multi-Drug Resistant Organisms: None Reported Past Surgical History: Adenoidectomy, AICD, Appendectomy, Heart Catheterization , Heart Catheterization With Stent, Joint Replacement, Orthopedic Surgery, Tonsillectomy Additional Past Surgical History / Comment(s): AICD, DFT 04/02/14, TOTAL LT/RT KNEE ARTHROPLASTY, bilateral CATARACTS, bilateral carpal tunnel releases, PARTIAL THYROIDECTOMY due to nodules, trigger fingers. Past Anesthesia/Blood Transfusion Reactions: No Reported Reaction Additional Past Anesthesia/Blood Transfusion Reaction / Comment(s): wakes up during surgery Date of Last Stent Placement:: 1993 Type of Cardiac Device: AICD Device Placement Date:: 2013 Past Psychological History: No Psychological Hx Reported Smoking Status: Former smoker Past Alcohol Use History: None Reported Past Drug Use History: None Reported - Past Family History Son(s) Family Medical History: No Reported History Father Family Medical History: Cancer, Coronary Artery Disease (CAD), CVA/TIA, Diabetes Mellitus Additional Family Medical History / Comment(s): CAROTID ARTERY BLOCKAGE.SX IN 1988 Mother Family Medical History: Unable to Obtain Additional Family Medical History / Comment(s): AT AGE 89- UNK HX Daughter(s) Family Medical History: Cancer (Patient has 2 adopted daughters and he has been under a lot of stress with his adopted daughter whom her left taking her cars with him.) BROTHER Family Medical History: Cancer Additional Family Medical History / Comment(s): BONE, PANCREATIC General Exam Limitations: no limitations General appearance: alert, in no apparent distress Head exam: Present: atraumatic, normocephalic Eye exam: Present: normal appearance. Absent: scleral icterus, conjunctival injection ENT exam: Present: normal oropharynx Neck exam: Present: other (Patient is a cervical collar) Respiratory exam: Present: normal lung sounds bilaterally. Absent: respiratory distress, wheezes, rales, rhonchi, stridor Cardiovascular Exam: Present: regular rate, normal rhythm, normal heart sounds. Absent: systolic murmur, diastolic murmur, rubs, gallop GI/Abdominal exam: Present: soft, normal bowel sounds. Absent: distended, tenderness, guarding, rebound, rigid, mass, pulsatile mass, hernia Extremities exam: Present: normal inspection, normal capillary refill. Absent: pedal edema, calf tenderness Back exam: Present: normal inspection. Absent: CVA tenderness (R), CVA tenderness (L), vertebral tenderness Neurological exam: Present: alert Skin exam: Present: warm, dry, intact, normal color. Absent: rash Course Vital Signs 02/25/18 05:16 Temperature 97.5 F L Pulse Rate 76 Respiratory 18 Rate Blood Pressure 148/80 O2 Sat by Pulse 95 Oximetry Medical Decision Making - Lab Data Result diagrams: 02/25/18 05:51 02/25/18 05:51 Lab Results 02/25/18 02/25/18 02/25/18 Range/Units 05:51 05:51 05:51 WBC 6.6 (3.8-10.6) k/uL RBC 4.17 L (4.30-5.90) m/uL Hgb 13.6 (13.0-17.5) gm/dL Hct 40.0 (39.0-53.0) % MCV 96.1 (80.0-100.0) fL MCH 32.7 (25.0-35.0) pg MCHC 34.0 (31.0-37.0) g/dL RDW 13.6 (11.5-15.5) % Plt Count 218 (150-450) k/uL Neutrophils % 61 % Lymphocytes % 21 % Monocytes % 6 % Eosinophils % 9 % Basophils % 1 % Neutrophils # 4.0 (1.3-7.7) k/uL Lymphocytes # 1.4 (1.0-4.8) k/uL Monocytes # 0.4 (0-1.0) k/uL Eosinophils # 0.6 (0-0.7) k/uL Basophils # 0.0 (0-0.2) k/uL Sodium 138 (137-145) mmol/L Potassium 4.2 (3.5-5.1) mmol/L Chloride 107 (98-107) mmol/L Carbon Dioxide 25 (22-30) mmol/L Anion Gap 6 mmol/L BUN 15 (9-20) mg/dL Creatinine 1.11 (0.66-1.25) mg/dL Est GFR (CKD-EPI)AfAm 71 (>60 ml/min/1.73 sqM) Est GFR (CKD-EPI)NonAf 61 (>60 ml/min/1.73 sqM) Glucose 115 H (74-99) mg/dL Calcium 9.6 (8.4-10.2) mg/dL Total Bilirubin 0.8 (0.2-1.3) mg/dL AST 39 (17-59) U/L ALT 66 (21-72) U/L Alkaline Phosphatase 107 (38-126) U/L Total Protein 5.6 L (6.3-8.2) g/dL Albumin 3.0 L (3.5-5.0) g/dL Amylase 50 (30-110) U/L Lipase 230 (23-300) U/L Urine Color Yellow Urine Appearance Clear (Clear) Urine pH 6.0 (5.0-8.0) Ur Specific [place] 1.007 (1.001-1.035) Urine Protein Negative (Negative) Urine Glucose (UA) Negative (Negative) Urine Ketones Negative (Negative) Urine Blood Small H (Negative) Urine Nitrite Negative (Negative) Urine Bilirubin Negative (Negative) Urine Urobilinogen <2.0 (<2.0) mg/dL Ur Leukocyte Esterase Negative (Negative) Urine RBC 8 H (0-5) /hpf Urine WBC 1 (0-5) /hpf Ur Squamous Epith Cells 1 (0-4) /hpf Urine Bacteria Rare H (None) /hpf Hyaline Casts 3 H (0-2) /lpf Urine Mucus Rare H (None) /hpf Disposition Clinical Impression: Calculus of kidney Disposition: HOME SELF-CARE Condition: Fair Prescriptions: Hydrocodone/Acetaminophen [[place] 5-325] 1 each PO Q6HR PRN #15 tab PRN Reason: Pain Tamsulosin [Flomax] 0.4 mg PO DAILY #14 cap Is patient prescribed a controlled substance at d/c from ED?: Yes When asked, does pt state using other controlled substances?: No If prescribed controlled substance>3 days was MAPS reviewed?: Prescribed <3 Days If opioid is for acute pain is fill amount 7 days or less?: Yes If Rx opioid, was Start Talking consent form obtained?: Yes Referrals: None,Stated [Primary Care Provider] - 1-2 days Claude Escamilla MD [STAFF PHYSICIAN] - 1-2 days
[2018-02-25 06:10] LABS: Basophils % (A) 1 %; Eosinophils # (A) 0.6 k/uL (0-0.7); Eosinophils % (A) 9 %; HGB 13.6 gm/dL (13.0-17.5); Lymphocytes # (A) 1.4 k/uL (1.0-4.8); Lymphocytes % (A) 21 %; MCH 32.7 pg (25.0-35.0); MCV 96.1 fL (80.0-100.0); Mean Platelet Volume 7.7; Monocytes # (A) 0.4 k/uL (0-1.0); Monocytes % (A) 6 %; Neutrophils % (A) 61 %; Platelet Count 218 k/uL (150-450); RBC 4.17 m/uL (4.30-5.90); RDW 13.6 % (11.5-15.5); WBC 6.6 k/uL (3.8-10.6)
[2018-02-25 06:19] LABS: Calcium 9.6 mg/dL (8.4-10.2); Potassium 4.2 mmol/L (3.5-5.1); Total Bilirubin 0.8 mg/dL (0.2-1.3); Total Protein 5.6 g/dL (6.3-8.2)
[2018-02-25 06:29] LABS: Appearance,Urine Clear (Clear); Bacteria,Urine Rare /hpf; Bilirubin,Urine Negative (Negative); Blood,Urine Small (Negative); Color,Urine Yellow; Glucose,Urine (UA) Negative (Negative); Hyaline Casts,Urine 3 /lpf (0-2); Ketones,Urine Negative (Negative); Leukocyte Esterase,Urine Negative (Negative); Mucus,Urine Rare /hpf; Nitrite,Urine Negative (Negative); Protein,Urine Negative (Negative); RBC,Urine 8 /hpf (0-5); Specific Gravity,Urine 1.007 (1.001-1.035); Squamous Epithelial Cell,Urine 1 /hpf (0-4); Urobilinogen,Urine <2.0 mg/dL (<2.0); WBC,Urine 1 /hpf (0-5)
--- NOTE | 2018-02-25 06:30 | CT ---
EXAMINATION TYPE: CT abdomen pelvis wo con DATE OF EXAM: 02/25/2018 COMPARISON: 12/15/2017 HISTORY: Patient presents with left sided abdominal and flank pain. CT DLP: 539.8 mGycm Automated exposure control for dose reduction was used. TECHNIQUE: Helical acquisition of images was performed from the lung bases through the pelvis. FINDINGS: There is some patchy mild infiltrate and atelectasis at the lung bases. Heart size is normal. There i s mild pleural calcification at the right lung base. There is no pericardial effusion. There is no pl eural effusion. Liver shows no focal defect. Bile ducts are not dilated. Spleen appears normal. There is no pancreati c mass. Stomach appears normal. There is no adrenal mass. There is a 6 cm cyst on the lower pole right kidney. Right ureter is not di lated. The left kidney shows hydronephrosis with 6 mm obstructing calculus at the ureteropelvic junct ion. There is no retroperitoneal adenopathy. Abdominal aorta is atheromatous. There is no free fluid in th e pelvis. There is enlarged prostate with calcification. Prostate measures 5 cm. Bladder distends smo othly. There is no inguinal hernia. There are scattered scattered sigmoid diverticula. There is no si gn of diverticulitis. There are spondylotic changes in the lumbar spine. There is no compression frac ture. Appendix is not seen. There is no sign of appendicitis. There is no evidence of free air. There is no ascites. IMPRESSION: THERE ARE FIBROTIC CHANGES AND ATELECTASIS AT THE LUNG BASES UNCHANGED. OBSTRUCTING CALCULUS AT THE LEFT URETEROPELVIC JUNCTION IS NEW COMPARED TO OLD EXAM. ATHEROSCLEROTIC VASCULAR DISEASE. RIGHT RENAL CORTICAL CYST.
[2018-02-25] MEDS ORDERED: TAMSULOSIN 0.4 MG CAP.ER.24H PO STA (06:42)
[2018-02-25] MEDS ORDERED: HYDROmorphone 1 MG/ML 1 ML SYRINGE IVP STA ×2 (06:42→07:42)
[2018-02-25 09:03] VITALS: BP 135/75; PULSE 71
== END 2018-02-25 09:03 | disposition home or self-care (01) ==
LOC: EC 05:14 → SUPCPDRO 05:14 → EC 09:03
DX: N20.2 Calculus of kidney with calculus of ureter (principal); I25.10 Atherosclerotic heart disease of native coronary artery without angina pectoris; I11.9 Hypertensive heart disease without heart failure; I50.9 Heart failure, unspecified; K21.9 Gastro-esophageal reflux disease without esophagitis; I25.2 Old myocardial infarction; M19.90 Unspecified osteoarthritis, unspecified site; I42.9 Cardiomyopathy, unspecified; Z79.02 Long term (current) use of antithrombotics/antiplatelets; Z79.82 Long term (current) use of aspirin; Z79.899 Other long term (current) drug therapy; Z88.8 Allergy status to other drugs, medicaments and biological substances; Z91.040 Latex allergy status; Z91.09 Other allergy status, other than to drugs and biological substances; Z91.048 Other nonmedicinal substance allergy status; Z95.5 Presence of coronary angioplasty implant and graft; Z95.810 Presence of automatic (implantable) cardiac defibrillator; Z96.653 Presence of artificial knee joint, bilateral; Z87.891 Personal history of nicotine dependence
CPT/HCPCS: 36415; 80053; 82150; 83690; 85025; 81001; 74176; 99284; J1170

== ENCOUNTER → 2018-02-28 | Outpatient (CLI) | payer MEDICARE ==
[2018-02-28 17:35] LABS: ALT 62 U/L (10-49); AST 38 U/L (14-35); Albumin/Globulin Ratio 1.65 (1.20-2.10); Alkaline Phosphatase 111 U/L (41-126); Calcium 9.1 mg/dL (8.7-10.3); Chloride 104 mmol/L (96-109); Cholesterol 116 mg/dL (0-200); Glucose 119 mg/dL (70-110); LDL Cholesterol,Calculated 61.8 mg/dL (0.0-131.0); Potassium 4.3 mmol/L (3.5-5.5); Sodium 140 mmol/L (135-145); Total Bilirubin 0.7 mg/dL (0.2-1.2); Total Protein 5.3 g/dL (6.2-8.2)
== END | disposition home or self-care (01) ==
LOC: LABWHC1 09:06
PROVIDERS: ATTEND Internal Medicine Interventional Cardiology
DX: E78.2 Mixed hyperlipidemia (principal); I25.5 Ischemic cardiomyopathy
CPT/HCPCS: 36415; 80053; 80061; 84443

== ENCOUNTER → 2018-04-19 | Outpatient (CLI) | payer MEDICARE ==
--- NOTE | 2018-04-19 16:37 | XR ---
EXAMINATION TYPE: XR abdomen complete w decub DATE OF EXAM: 04/19/2018 COMPARISON: Prior abdomen 02/08/2018, CT abdomen 02/25/2018 HISTORY: R 10.9, weight loss TECHNIQUE: Supine, upright, and left side down lateral decubitus views of the abdomen are obtained. FINDINGS: Intracardiac defibrillator is noted. Lung bases show stable appearance. There is a spinal curvature. Degenerative disc change. Atherosclerotic vascular calcifications are again noted. There a re air-fluid levels without bowel distention. No pneumoperitoneum. Arthropathy noted in the hips. The re calcification superimposed over the kidneys. IMPRESSION: There may be underlying ileus or enteritis. Additional findings above. Follow-up as indicated.
== END ==
LOC: RADXRMAIN 14:30
PROVIDERS: ATTEND Internal Medicine
DX: R10.9 Unspecified abdominal pain (principal)
CPT/HCPCS: 74021

== ENCOUNTER 2018-04-23 15:19 | Emergency (ER) | payer MEDICARE ==
[2018-04-23] MEDS ORDERED: ONDANSETRON 4 MG/2 ML VIAL IVP STA (15:43)
[2018-04-23] MEDS ORDERED: MORPHINE SULFATE 2 MG/ML SYRINGE IVP STA (15:43)
[2018-04-23] MEDS ORDERED: SODIUM CHLORIDE 0.9% 1,000 ML IV STA (15:43)
[2018-04-23] MEDS ORDERED: FAMOTIDINE 20 MG/2 ML VIAL IV STA (15:44)
--- NOTE | 2018-04-23 15:50 | ED ---
General Adult HPI - General Chief complaint: Abdominal Pain Stated complaint: Abd Pain Time Seen by Provider: 04/23/18 15:37 Source: patient, family, RN notes reviewed Mode of arrival: wheelchair Limitations: no limitations - History of Present Illness Initial comments: Patient is a pleasant 82-year-old male presenting to the emergency Department with complaints of abdominal discomfort. Symptoms have been occurring since his gallbladder was removed in November. Discomfort has worsened yesterday and today. Patient has associated nausea, no vomiting. Patient has been somewhat constipated. Patient did take milk of magnesia and did have a bowel movement early this morning without improvement of symptoms. Patient did have x-rays done 4 days ago and they were told there was some concern for possible bowel blockage. No fevers. - Related Data Home Medications Medication Instructions Recorded Confirmed Clopidogrel [Plavix] 75 mg PO DAILY 03/29/14 02/25/18 Spironolactone [Aldactone] 25 mg PO DAILY 12/03/16 02/25/18 Aspirin [Adult Low Dose Aspirin EC] 81 mg PO DAILY 11/16/17 02/25/18 Vit A/Vit C/Vit E/Zinc/Copper 1 cap PO DAILY 11/16/17 02/25/18 [ICAPS SOFTGEL] Amiodarone [Cordarone] 200 mg PO DAILY 12/15/17 02/25/18 Lisinopril [Zestril] 10 mg PO DAILY 12/15/17 02/25/18 Metoprolol Tartrate [Lopressor] 25 mg PO BID 12/15/17 02/25/18 Omeprazole [PriLOSEC] 20 mg PO DAILY 12/15/17 02/25/18 Previous Rx's Medication Instructions Recorded Atorvastatin [Lipitor] 80 mg PO HS #30 tab 11/20/13 Docusate [Colace] 100 mg PO BID cap 02/10/18 Polyethylene Glycol 3350 [Miralax] 17 gm PO DAILY powd.pack 02/10/18 Hydrocodone/Acetaminophen [[place] 1 each PO Q6HR PRN #15 tab 02/25/18 5-325] Tamsulosin [Flomax] 0.4 mg PO DAILY #14 cap 02/25/18 Cephalexin [Keflex] 500 mg PO QID #28 cap 04/23/18 Tamsulosin [Flomax] 0.4 mg PO DAILY #14 cap 04/23/18 Allergies Allergy/AdvReac Type Severity Reaction Status Date / Time amlodipine besylate Allergy Rash/Hives Verified 04/23/18 15:30 [From Norvasc] isosorbide [From Imdur] Allergy Unknown Verified 04/23/18 15:30 Latex, Natural Rubber Allergy Rash/Hives Verified 04/23/18 15:30 AICD IMPLANT Allergy Unknown Uncoded 04/23/18 15:30 Review of Systems ROS Statement: Those systems with pertinent positive or pertinent negative responses have been documented in the HPI. ROS Other: All systems not noted in ROS Statement are negative. Constitutional: Denies: fever, chills Eyes: Denies: eye pain ENT: Denies: ear pain Respiratory: Denies: cough Cardiovascular: Denies: chest pain Endocrine: Denies: fatigue Gastrointestinal: Reports: abdominal pain, nausea, constipation. Denies: vomiting, diarrhea Genitourinary: Denies: dysuria, hematuria Musculoskeletal: Denies: back pain Skin: Denies: rash Neurological: Denies: weakness Past Medical History Past Medical History: Coronary Artery Disease (CAD), Heart Failure, Eye Disorder, GERD/Reflux, GI Bleed, Hyperlipidemia, Hypertension, Myocardial Infarction ([place]), Osteoarthritis (OA), Prostate Disorder, Thyroid Disorder Additional Past Medical History / Comment(s): cardiomyopathy, DENGENERATIVE AR THRITIS, MACULAR DEGENERATION AND CATARACTS,GI BLEED 2011, fall 11-24-16/facial inj/bruing/broken front teeth. Last Myocardial Infarction Date:: 1993 History of Any Multi-Drug Resistant Organisms: None Reported Past Surgical History: Adenoidectomy, AICD, Appendectomy, Heart Catheterization, Heart Catheterization With Stent, Joint Replacement, Orthopedic Surgery, Tonsillectomy Additional Past Surgical History / Comment(s): AICD, DFT 04/02/14, TOTAL LT/RT KNEE ARTHROPLASTY, bilateral CATARACTS, bilateral carpal tunnel releases, PARTIAL THYROIDECTOMY due to nodules, trigger fingers. Past Anesthesia/Blood Transfusion Reactions: No Reported Reaction Additional Past Anesthesia/Blood Transfusion Reaction / Comment(s): wakes up during surgery Date of Last Stent Placement:: 1993 Type of Cardiac Device: AICD Device Placement Date:: 2013 Past Psychological History: No Psychological Hx Reported Smoking Status: Former smoker Past Alcohol Use History: None Reported Past Drug Use History: None Reported - Past Family History Son(s) Family Medical History: No Reported History Father Family Medical History: Cancer, Coronary Artery Disease (CAD), CVA/TIA, Diabetes Mellitus Additional Family Medical History / Comment(s): CAROTID ARTERY BLOCKAGE.SX IN 1988 Mother Family Medical History: Unable to Obtain Additional Family Medical History / Comment(s): AT AGE 89- UNK HX Daughter(s) Family Medical History: Cancer (Patient has 2 adopted daughters and he has been under a lot of stress with his adopted daughter whom her left taking her cars with him.) BROTHER Family Medical History: Cancer Additional Family Medical History / Comment(s): BONE, PANCREATIC General Exam Limitations: no limitations General appearance: alert, in no apparent distress Head exam: Present: atraumatic Eye exam: Present: normal appearance, PERRL ENT exam: Present: normal oropharynx Neck exam: Present: normal inspection Respiratory exam: Present: normal lung sounds bilaterally Cardiovascular Exam: Present: regular rate, normal rhythm Expanded Peripheral pulses: 2+: Radial (R), Radial (L), Posterior Tibialis (R), Posterior Tibialis (L), Dorsalis Pedis (R), Dorsalis Pedis (L) GI/Abdominal exam: Present: soft, tenderness (Mild to moderate epigastric ten derness to palpation), normal bowel sounds. Absent: distended, guarding, rebound, rigid, pulsatile mass Extremities exam: Present: normal inspection. Absent: pedal edema, calf tenderness Neurological exam: Present: alert Psychiatric exam: Present: normal affect, normal mood Skin exam: Present: normal color. Absent: rash Course Vital Signs 04/23/18 04/23/18 04/23/18 15:27 16:15 18:39 Temperature 98.0 F 97.1 F L Pulse Rate 73 62 53 L Respiratory 18 18 16 Rate Blood Pressure 103/57 125/64 154/73 O2 Sat by Pulse 98 97 99 Oximetry EKG Findings - EKG Comments: EKG Findings:: Normal sinus rhythm at 63. MO 186. QRS 122. QT 440. QTc 458. Left axis. Septal Q waves. No acute ST change. Medical Decision Making - Medical Decision Making Patient reevaluated and resting comfortably in bed. Discomfort is very mild at this point. Abdomen is soft and nontender. Case was discussed in detail with Dr. Kramer, covering for Dr. Rowland. She is comfortable with discharge home and does recommend close follow-up as well as follow-up with vascular. Patient and family are updated on results and plan. 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 - Lab Data Result diagrams: 04/23/18 16:00 04/23/18 16:00 Lab Results 04/23/18 04/23/18 04/23/18 Range/Units 16:00 16:00 16:00 WBC 7.1 (3.8-10.6) k/uL RBC 4.15 L (4.30-5.90) m/uL Hgb 12.7 L (13.0-17.5) gm/dL Hct 38.6 L (39.0-53.0) % MCV 93.1 (80.0-100.0) fL MCH 30.6 (25.0-35.0) pg MCHC 32.9 (31.0-37.0) g/dL RDW 13.5 (11.5-15.5) % Plt Count 201 (150-450) k/uL Neutrophils % 68 % Lymphocytes % 17 % Monocytes % 7 % Eosinophils % 5 % Basophils % 1 % Neutrophils # 4.8 (1.3-7.7) k/uL Lymphocytes # 1.2 (1.0-4.8) k/uL Monocytes # 0.5 (0-1.0) k/uL Eosinophils # 0.3 (0-0.7) k/uL Basophils # 0.0 (0-0.2) k/uL PT 11.0 (9.0-12.0) sec INR 1.0 (<1.2) APTT 24.9 (22.0-30.0) sec Sodium 139 (137-145) mmol/L Potassium 4.3 (3.5-5.1) mmol/L Chloride 108 H (98-107) mmol/L Carbon Dioxide 26 (22-30) mmol/L Anion Gap 5 mmol/L BUN 22 H (9-20) mg/dL Creatinine 1.31 H (0.66-1.25) mg/dL Est GFR (CKD-EPI)AfAm 58 (>60 ml/min/1.73 sqM) Est GFR (CKD-EPI)NonAf 50 (>60 ml/min/1.73 sqM) Glucose 121 H (74-99) mg/dL Calcium 9.4 (8.4-10.2) mg/dL Total Bilirubin 0.9 (0.2-1.3) mg/dL AST 21 (17-59) U/L ALT 28 (21-72) U/L Alkaline Phosphatase 102 (38-126) U/L Creatine Kinase 27 L (55-170) U/L Troponin I (0.000-0.034) ng/mL Total Protein 5.4 L (6.3-8.2) g/dL Albumin 2.7 L (3.5-5.0) g/dL Amylase 53 (30-110) U/L Lipase 190 (23-300) U/L Urine Color Urine Appearance (Clear) Urine pH (5.0-8.0) Ur Specific [place] (1.001-1.035) Urine Protein (Negative) Urine Glucose (UA) (Negative) Urine Ketones (Negative) Urine Blood (Negative) Urine Nitrite (Negative) Urine Bilirubin (Negative) Urine Urobilinogen (<2.0) mg/dL Ur Leukocyte Esterase (Negative) Urine RBC (0-5) /hpf Urine WBC (0-5) /hpf Ur Squamous Epith Cells (0-4) /hpf Calcium Oxalate Crystal (None) /hpf Amorphous Sediment (None) /hpf Hyaline Casts (0-2) /lpf Urine Mucus (None) /hpf 04/23/18 04/23/18 Range/Units 16:00 16:00 WBC (3.8-10.6) k/uL RBC (4.30-5.90) m/uL Hgb (13.0-17.5) gm/dL Hct (39.0-53.0) % MCV (80.0-100.0) fL MCH (25.0-35.0) pg MCHC (31.0-37.0) g/dL RDW (11.5-15.5) % Plt Count (150-450) k/uL Neutrophils % % Lymphocytes % % Monocytes % % Eosinophils % % Basophils % % Neutrophils # (1.3-7.7) k/uL Lymphocytes # (1.0-4.8) k/uL Monocytes # (0-1.0) k/uL Eosinophils # (0-0.7) k/uL Basophils # (0-0.2) k/uL PT (9.0-12.0) sec INR (<1.2) APTT (22.0-30.0) sec Sodium (137-145) mmol/L Potassium (3.5-5.1) mmol/L Chloride (98-107) mmol/L Carbon Dioxide (22-30) mmol/L Anion Gap mmol/L BUN (9-20) mg/dL Creatinine (0.66-1.25) mg/dL Est GFR (CKD-EPI)AfAm (>60 ml/min/1.73 sqM) Est GFR (CKD-EPI)NonAf (>60 ml/min/1.73 sqM) Glucose (74-99) mg/dL Calcium (8.4-10.2) mg/dL Total Bilirubin (0.2-1.3) mg/dL AST (17-59) U/L ALT (21-72) U/L Alkaline Phosphatase (38-126) U/L Creatine Kinase (55-170) U/L Troponin I <0.012 (0.000-0.034) ng/mL Total Protein (6.3-8.2) g/dL Albumin (3.5-5.0) g/dL Amylase (30-110) U/L Lipase (23-300) U/L Urine Color Yellow Urine Appearance Cloudy (Clear) Urine pH 7.5 (5.0-8.0) Ur Specific [place] 1.017 (1.001-1.035) Urine Protein Trace H (Negative) Urine Glucose (UA) Negative (Negative) Urine Ketones Negative (Negative) Urine Blood Moderate H (Negative) Urine Nitrite Negative (Negative) Urine Bilirubin Negative (Negative) Urine Urobilinogen <2.0 (<2.0) mg/dL Ur Leukocyte Esterase Negative (Negative) Urine RBC 95 H (0-5) /hpf Urine WBC 20 H (0-5) /hpf Ur Squamous Epith Cells 1 (0-4) /hpf Calcium Oxalate Crystal Rare H (None) /hpf Amorphous Sediment Occasional H (None) /hpf Hyaline Casts 47 H (0-2) /lpf Urine Mucus Many H (None) /hpf - Radiology Data Radiology results: report reviewed (Computed tomography scan of the abdomen pelvis does show left sided proximal stone in the ureter with hydronephrosis. 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 Case was discussed with radiologist who did review this on previous computed tomography scan 2 months ago and states secondary to calcifications this is chronic. She states it is a very small area.) Disposition Clinical Impression: Abdominal pain, Ureterolithiasis, Aortic dissection, abdominal Disposition: HOME SELF-CARE Condition: Stable Instructions (If sedation given, give patient instructions): Abdominal Pain (ED), Kidney Stones (ED) Additional Instructions: Please follow-up with primary care physician in the next couple days for recheck. Please also follow-up with urology and vascular surgeon, numbers provided. Return for blood pressure problems, increased pain, fevers, worsening symptoms or other concerns. Prescriptions: Tamsulosin [Flomax] 0.4 mg PO DAILY #14 cap Cephalexin [Keflex] 500 mg PO QID #28 cap Is patient prescribed a controlled substance at d/c from ED?: No Referrals: Oskar Rowland MD [Primary Care Provider] - 1-2 days Harjeet Kramer MD [STAFF PHYSICIAN] - 1-2 days Peng Summers MD [STAFF PHYSICIAN] - 1-2 days Time of Disposition: 19:23
[2018-04-23 16:32] LABS: Basophils % (A) 1 %; Eosinophils # (A) 0.3 k/uL (0-0.7); Eosinophils % (A) 5 %; HCT 38.6 % (39.0-53.0); HGB 12.7 gm/dL (13.0-17.5); Lymphocytes # (A) 1.2 k/uL (1.0-4.8); Lymphocytes % (A) 17 %; MCH 30.6 pg (25.0-35.0); MCHC 32.9 g/dL (31.0-37.0); MCV 93.1 fL (80.0-100.0); Monocytes # (A) 0.5 k/uL (0-1.0); Monocytes % (A) 7 %; Neutrophils # (A) 4.8 k/uL (1.3-7.7); Neutrophils % (A) 68 %; Platelet Count 201 k/uL (150-450); RBC 4.15 m/uL (4.30-5.90); RDW 13.5 % (11.5-15.5); WBC 7.1 k/uL (3.8-10.6)
[2018-04-23 16:43] LABS: Amorphous Sediment,Urine Occasional /hpf; Appearance,Urine Cloudy (Clear); Bilirubin,Urine Negative (Negative); Blood,Urine Moderate (Negative); Calcium Oxalate Crystals,Urine Rare /hpf; Color,Urine Yellow; Glucose,Urine (UA) Negative (Negative); Hyaline Casts,Urine 47 /lpf (0-2); Ketones,Urine Negative (Negative); Leukocyte Esterase,Urine Negative (Negative); Mucus,Urine Many /hpf; Nitrite,Urine Negative (Negative); PH, Urine 7.5 (5.0-8.0); Protein,Urine Trace (Negative); RBC,Urine 95 /hpf (0-5); Specific Gravity,Urine 1.017 (1.001-1.035); Squamous Epithelial Cell,Urine 1 /hpf (0-4); Urobilinogen,Urine <2.0 mg/dL (<2.0); WBC,Urine 20 /hpf (0-5)
[2018-04-23 16:47] LABS: Albumin 2.7 g/dL (3.5-5.0); Calcium 9.4 mg/dL (8.4-10.2); Partial Thromboplastin Time 24.9 sec (22.0-30.0); Potassium 4.3 mmol/L (3.5-5.1); Total Bilirubin 0.9 mg/dL (0.2-1.3); Total Protein 5.4 g/dL (6.3-8.2)
[2018-04-23] MEDS ORDERED: SODIUM CHLORIDE 0.9% 500 ML 500 ML IV STA (16:59)
--- NOTE | 2018-04-23 17:42 | CT ---
EXAMINATION TYPE: CT abdomen pelvis w con DATE OF EXAM: 04/23/2018 COMPARISON: 02/25/2018 HISTORY: Flank pain CT DLP: 953.4 mGycm Automated exposure control for dose reduction was used. TECHNIQUE: Helical acquisition of images was performed from the lung bases through the pelvis. CONTRAST: Performed without Oral Contrast and with IV Contrast, patient injected with 80 mL of Isovue 300. FINDINGS: LUNG BASES: Severe coronary artery calcifications are seen within the visualized lung bases as well a s partial visualization of a cardiac device. And moderate bilateral symmetric gynecomastia. Additiona lly there is bibasilar atelectasis, right calcified small pleural plaque, and hilar granulomas that a re benign. LIVER/GB: There is mild intrahepatic biliary ductal dilatation. Gallbladder appears surgically absent with clips in the gallbladder fossa. Few punctate calcifications along the portal triads may relate to hepatic artery calcifications rather than intraductal calcifications given the extensive atheroscl erosis of the abdominal aorta and its branches. Punctate hypoattenuated left hepatic lobe lesions are favored to represent small cysts as well subcapsular right hepatic lobe lesion on image 19. However these are subcentimeter and too small to accurately characterize. PANCREAS: No intrahepatic biliary ductal dilatation. Tail pancreatic parenchymal atrophy. SPLEEN: Nonspecific subcentimeter hypoattenuated lesions could represent cyst but again are too small to accurately characterize. ADRENALS: No significant abnormality is seen. KIDNEYS: There is haziness in enhancement in the left kidney slightly delayed in comparison to the ri ght with mild perinephric fat stranding secondary to a partially obstructing proximal ureteral 6 mm c alculus resulting in mild left hydroureteronephrosis and uroepithelial fat stranding. No right-sided hydronephrosis. Large right renal cyst measures up to 5.3 cm. Other bilateral renal cy sts are smaller. Nonobstructing right upper pole renal calculi measured 6 mm and 3 mm. FREE AIR: No free air is visualized. ADENOPATHY: No greater than 1 cm short axis lymph nodes are visualized within the abdomen or pelvis. REPRODUCTIVE ORGANS: There is diffuse heterogeneity of prostate gland with central zone calcification s. URINARY BLADDER: No urinary bladder calculi are seen. OSSEOUS STRUCTURES: Altered level retrolisthesis is seen throughout the thoracolumbar spine as well as intervertebral disc space narrowing, facet arthropathy and small interosseous heights. Overall mod erate to severe degenerative disc disease BOWEL: Moderate amount retained colonic stool is seen. Few scattered colonic diverticula are present without pericolonic fat stranding. No dilated large or small bowel. OTHER: There is a focal chronic infrarenal dissection with an intimal flap seen on image 46 as well a s peripheral calcifications. 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 There is tortuosity of the in frarenal abdominal aorta and ectasia measuring up to 2.5 cm however there is no aneurysmal dilatation by size criteria. IMPRESSION: 1. MILD LEFT HYDROURETERONEPHROSIS SECONDARY TO A PARTIALLY OBSTRUCTIVE 5 MM LEFT PROXIMAL URETERAL C ALCULUS CREATING UROEPITHELIAL THICKENING AND LEFT RENAL PELVIC FAT STRANDING. ADDITIONALLY THERE IS ASYMMETRIC DELAYED ENHANCEMENT IN THE LEFT KIDNEY FROM THE ACUTE OBSTRUCTIVE UROPATHY. 2. 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 3. NONOBSTRUCTING RIGHT RENAL CALCULI AND A MULTITUDE OF OTHER INCIDENTAL FINDINGS DESCRIBED ABOVE .
[2018-04-23 19:42] VITALS: BP 133/74; PULSE 58; RESP 18; TEMP 97.2
== END 2018-04-23 19:48 | disposition home or self-care (01) ==
LOC: EC 15:19
DX: N13.2 Hydronephrosis with renal and ureteral calculous obstruction (principal); I71.02 Dissection of abdominal aorta; I25.10 Atherosclerotic heart disease of native coronary artery without angina pectoris; I11.0 Hypertensive heart disease with heart failure; I50.9 Heart failure, unspecified; K21.9 Gastro-esophageal reflux disease without esophagitis; I25.2 Old myocardial infarction; I43 Cardiomyopathy in diseases classified elsewhere; M19.90 Unspecified osteoarthritis, unspecified site; Z95.810 Presence of automatic (implantable) cardiac defibrillator; Z90.49 Acquired absence of other specified parts of digestive tract; Z95.818 Presence of other cardiac implants and grafts; Z95.5 Presence of coronary angioplasty implant and graft; Z96.653 Presence of artificial knee joint, bilateral; Z87.891 Personal history of nicotine dependence; Z79.02 Long term (current) use of antithrombotics/antiplatelets; Z79.82 Long term (current) use of aspirin; Z79.899 Other long term (current) drug therapy; Z88.8 Allergy status to other drugs, medicaments and biological substances; Z91.040 Latex allergy status; Z91.048 Other nonmedicinal substance allergy status
CPT/HCPCS: 36415; 93005; 80053; 82150; 82550; 83690; 84484; 85025; 85610; 85730; 81001; 74177; 99284; 96374; 96375 ×2; 96361 ×4; J2405; J2270; Q9967

== ENCOUNTER → 2018-05-03 | Outpatient (CLI) | payer MEDICARE ==
[2018-05-03 10:45] LABS: Basophils % (A) 1 %; Eosinophils # (A) 0.3 k/uL (0-0.7); Eosinophils % (A) 6 %; HCT 35.4 % (39.0-53.0); HGB 11.5 gm/dL (13.0-17.5); Lymphocytes # (A) 1.1 k/uL (1.0-4.8); Lymphocytes % (A) 19 %; MCH 30.9 pg (25.0-35.0); MCHC 32.4 g/dL (31.0-37.0); MCV 95.4 fL (80.0-100.0); Mean Platelet Volume 6.9; Monocytes # (A) 0.3 k/uL (0-1.0); Monocytes % (A) 6 %; Neutrophils # (A) 3.9 k/uL (1.3-7.7); Neutrophils % (A) 66 %; Platelet Count 193 k/uL (150-450); RBC 3.71 m/uL (4.30-5.90); WBC 5.9 k/uL (3.8-10.6)
[2018-05-03 17:14] LABS: Anion Gap 6.1 mmol/L (4.00-12.00); Carbon Dioxide 25.9 mmol/L (21.6-31.8); Potassium 3.7 mmol/L (3.5-5.5)
== END | disposition home or self-care (01) ==
LOC: LABWHC1 09:59
PROVIDERS: ATTEND Urology
DX: Z01.812 Encounter for preprocedural laboratory examination (principal); N20.1 Calculus of ureter; I10 Essential (primary) hypertension
CPT/HCPCS: 36415; 80048; 85025

== ENCOUNTER 2018-05-05 08:54 | Day surgery (SDC) | payer MEDICARE ==
[2018-05-02 11:35] VITALS: BMI 24.5
--- NOTE | 2018-05-02 18:06 | P.GSHP ---
History of Present Illness H&P Date: 05/02/18 Chief Complaint: Left-sided abdominal pain The patient is an 82-year-old white male with no prior history of urolithiasis. A computed tomography scan in February 2018 showed a 6 mm left UPJ calculus. He has developed left lower quadrant abdominal pain, associated with nausea and gross hematuria. A repeat computed tomography scan shows evidence of left hydronephrosis due to a 6 mm left proximal ureteral calculus. This cannot be seen on a plain radiograph. - Constitutional Constitutional: Denies chills, Denies fever - Gastrointestinal Gastrointestinal: Reports nausea - Genitourinary (Female) Genitourinary: Reports hematuria, Reports kidney stones Past Medical History Past Medical History: Coronary Artery Disease (CAD), Heart Failure, Eye Disorder, GERD/Reflux, GI Bleed, Hyperlipidemia, Hypertension, Myocardial Infarction ([place]), Osteoarthritis (OA), Prostate Disorder, Thyroid Disorder Additional Past Medical History / Comment(s): cardiomyopathy, DENGENERATIVE ARTHRITIS, MACULAR DEGENERATION AND CATARACTS,GI BLEED 2011, fall 11-24-16/facial inj/bruing/broken front teeth,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 Last Myocardial Infarction Date:: History of Any Multi-Drug Resistant Organisms: None Reported Past Surgical History: Adenoidectomy, AICD, Appendectomy, Cholecystectomy, Heart Catheterization, Heart Catheterization With Stent, Joint Replacement, Orthopedic Surgery, Pacemaker, Tonsillectomy Additional Past Surgical History / Comment(s): AICD, Defrillation Testing 04/02/14, TOTAL LT/RT KNEE ARTHROPLASTY, bilateral CATARACTS, bilateral carpal tunnel releases, PARTIAL THYROIDECTOMY due to nodules, trigger fingers,heart stents x3 Past Anesthesia/Blood Transfusion Reactions: No Reported Reaction Additional Past Anesthesia/Blood Transfusion Reaction / Comment(s): wakes up during surgery,no hx blood transfusion Date of Last Stent Placement:: Type of Cardiac Device: AICD Device Placement Date:: 12-04-13 [employer] Smoking Status: Former smoker - Past Family History Son(s) Family Medical History: No Reported History Father Family Medical History: Cancer, Coronary Artery Disease (CAD), CVA/TIA, Diabetes Mellitus Additional Family Medical History / Comment(s): CAROTID ARTERY BLOCKAGE.SX IN 1988 Mother Family Medical History: Unable to Obtain Additional Family Medical History / Comment(s): AT AGE 89- UNK HX Daughter(s) Family Medical History: Cancer (Patient has 2 adopted daughters and he has been under a lot of stress with his adopted daughter whom her left taking her cars with him.) BROTHER Family Medical History: Cancer Additional Family Medical History / Comment(s): BONE, PANCREATIC Medications and Allergies Home Medications Medication Instructions Recorded Confirmed Type Atorvastatin [Lipitor] 80 mg PO HS #30 tab 11/20/13 05/02/18 Rx Spironolactone [Aldactone] 12.5 mg PO QAM 12/03/16 05/02/18 History Aspirin [Adult Low Dose Aspirin EC] 81 mg PO DAILY 11/16/17 05/02/18 History Lisinopril [Zestril] 5 mg PO BID 12/15/17 05/02/18 History Metoprolol Tartrate [Lopressor] 25 mg PO QAM 12/15/17 05/02/18 History Omeprazole [PriLOSEC] 20 mg PO QAM 12/15/17 05/02/18 History Tamsulosin [Flomax] 0.4 mg PO DAILY #14 cap 02/25/18 05/02/18 Rx Cephalexin [Keflex] 500 mg PO QID #28 cap 04/23/18 05/02/18 Rx Methimazole [Tapazole] 5 mg PO QAM 05/02/18 05/02/18 History Polyethylene Glycol 3350 [Miralax] 17 gm PO DAILY PRN 05/02/18 05/02/18 History Sucralfate [Carafate] 1 gm PO TID 05/02/18 05/02/18 History Allergies Allergy/AdvReac Type Severity Reaction Status Date / Time amlodipine besylate Allergy Rash/Hives Verified 05/02/18 11:19 [From Norvasc] isosorbide [From Imdur] Allergy Unknown Verified 05/02/18 11:19 Latex, Natural Rubber Allergy Rash/Hives Verified 05/02/18 11:22 Surgical - Exam - General well developed, well nourished, no distress - Respiratory normal respiratory effort, clear to auscultation - Cardiovascular Rhythm: regular Abnormal Heart Sounds: no systolic murmur, no diastolic murmur, no rub, no S3 Gallop, no S4 Gallop, no click, no other - Abdomen Abdomen: soft, non tender, no guarding, no rigid, no rebound - Genitourinary normal penis with no external lesions, testicles non-tender - Rectum Rectum: normal sphincter tone, no masses - Psychiatric oriented to time, oriented to person, oriented to place, speech is normal, memory intact Results - Imaging CT scan - abdomen: report reviewed, image reviewed Assessment and Plan (1) Ureterolithiasis Status: Acute Code(s): N20.1 - CALCULUS OF URETER SNOMED Code(s): 20474758 (2) Hydronephrosis due to obstruction of ureter Status: Acute Code(s): N13.2 - HYDRONEPHROSIS WITH RENAL AND URETERAL CALCULOUS OBSTRUCTION SNOMED Code(s): 385471087 Plan: Cystoscopy, left ureteroscopy with Holmium laser lithotripsy and possible stone basketing, left ureteral stent insertion. The rationale for this procedure has been reviewed in detail with the patient and his daughter. Potential risks associated with the procedure were reviewed. These include anesthesia, bleeding, infection, inability to successfully remove the calculus, and ureteral injury.
[~2018-05-05 08:54] MED LIST: HYDROmorphone 0.5 MG/0.5 ML SYRINGE IVP PRN; LACTATED RINGERS 1,000 ML IV SCH; LIDOCAINE 1% 20 ML VIAL (10MG/ML) FOR IV START INTRADERMA PRN; ONDANSETRON 4 MG/2 ML VIAL IVP ONE; ceFAZolin IN SWFI 2 GM/20 ML SYRINGE IVP ONE; fentaNYL (PF) 50 MCG/ML 2 ML AMP IV PRN
[2018-05-05 09:34] VITALS: RESP 16
[2018-05-05] MEDS ORDERED: fentaNYL (PF) 50 MCG/ML 2 ML AMP ONE (10:21)
[2018-05-05] MEDS ORDERED: GLYCOPYRROLATE 0.2 MG/ML 2 ML VIAL ONE (10:21)
[2018-05-05] MEDS ORDERED: SUCCINYLCHOLINE CHLORIDE 100 MG/5 ML SYR IV ONE (10:21)
[2018-05-05] MEDS ORDERED: ROCURONIUM BROMIDE 10 MG/ML 10 ML VIAL IV ONE (10:21)
[2018-05-05] MEDS ORDERED: ETOMIDATE 2 MG/ML 10 ML VIAL ONE (10:21)
[2018-05-05] MEDS ORDERED: NEOSTIGMINE 1 MG/ML 10 ML VIAL ONE (10:21)
--- NOTE | 2018-05-05 11:30 | P.OP ---
Date of Procedure: 05/05/18 Preoperative Diagnosis: Left renal calculus Postoperative Diagnosis: Same Procedure(s) Performed: Cystoscopy, left ureteroscopy with Holmium laser lithotripsy, left ureteral stent insertion Anesthesia: GETA Surgeon: Claude Escamilla Estimated Blood Loss (ml): 5 IV fluids (ml): 500 Pathology: none sent Condition: stable Disposition: PACU Indications for Procedure: The patient is an 82-year-old white male with no prior history of urolithiasis. A computed tomography scan in February 2018 showed a 6 mm left UPJ calculus. He has developed left lower quadrant abdominal pain, associated with nausea and gross hematuria. A repeat computed tomography scan shows evidence of left hydronephrosis due to a 6 mm left proximal ureteral calculus. This cannot be seen on a plain radiograph. Operative Findings: 6 mm left UPJ calculus, fragmented to completion. Description of Procedure: The patient was taken to the operating room and placed in the dorsolithotomy position, with legs supported in Renny stirrups. The external genitalia was prepped and draped sterilely. The 30 lens was used to introduce the 19-Malawian Stortz cystoscopic sheath through the urethra and into the bladder under direct vision. The prostatic urethra showed evidence of mild lateral lobe enlargement and a high median bar. The bladder was examined in its entirety. Both ureteral orifices were normal anatomic location and configuration, and clear urine effluxed from both. No tumors or foreign bodies were seen. A 0.038 inch Glidewire was passed through the cystoscope. The left ureteral orifice was cannulated, and the Glidewire was advanced up to the left renal pelvis. The cystoscope was removed, and an 11/13-Malawian ureteral access catheter was passed over the wire, up to the proximal ureter. The mini flexible ureteroscope was passed through the ureteral access catheter sheath. The calculus was dislodged from the ureteropelvic junction, into an upper pole calyx. The 200 micron Holmium laser probe was passed through the ureteroscope, and lithotripsy was performed. Utilizing a dusting technique, the calculus that was fragmented until there were no residual calculus fragments exceeding the size of the fiber tip. A smaller additional calculus was identified and fragmented. Each calyx was examined, and no additional calculi were identified. The ureteroscope was removed, and the Glidewire was passed through the ureteral access catheter sheath and up to the left renal pelvis. The ureteral access catheter sheath was removed, and the Glidewire was backloaded into the cystoscope. A 26 cm, 4.8-Malawian double-J ureteral stent was placed over the wire. Proper stent positioning was verified fluoroscopically and endoscopically. The bladder was emptied and the cystoscope removed. The patient tolerated the procedure well and was taken to the recovery room in stable condition.
[2018-05-05 11:39] VITALS: TEMP 96.9
[2018-05-05] MEDS ORDERED: LACTATED RINGERS 1,000 ML IV ONE (11:58)
[2018-05-05] MEDS ORDERED: HYDROmorphone 0.5 MG/0.5 ML SYRINGE IVP ONE ×2 (12:50→13:18)
[2018-05-05] MEDS ORDERED: ONDANSETRON 4 MG/2 ML VIAL IVP ONE (13:11)
[2018-05-05] MEDS ORDERED: HYDROcodone/APAP 5-325MG 1 EACH TAB PO ONE (14:10)
[2018-05-05 14:29] VITALS: BP 159/76; PULSE 67
--- NOTE | 2018-05-05 14:59 | FL ---
Fluoroscopy HISTORY: Ureteral calculus 36 seconds fluoroscopy time supplied to the referring clinician. 2 intraoperative C-arm images docum ent the procedure. See dictated report from urology.
== END 2018-05-05 14:51 | disposition home or self-care (01) ==
LOC: OR 08:54
PROVIDERS: ATTEND Urology
DX: N13.2 Hydronephrosis with renal and ureteral calculous obstruction (principal); I25.10 Atherosclerotic heart disease of native coronary artery without angina pectoris; I11.0 Hypertensive heart disease with heart failure; I50.9 Heart failure, unspecified; Z87.891 Personal history of nicotine dependence; K21.9 Gastro-esophageal reflux disease without esophagitis; E78.5 Hyperlipidemia, unspecified; I25.2 Old myocardial infarction; M19.90 Unspecified osteoarthritis, unspecified site; N42.9 Disorder of prostate, unspecified; E07.9 Disorder of thyroid, unspecified; Z95.810 Presence of automatic (implantable) cardiac defibrillator; H35.30 Unspecified macular degeneration; Z95.5 Presence of coronary angioplasty implant and graft; I71.00 Dissection of unspecified site of aorta; Z82.49 Family history of ischemic heart disease and other diseases of the circulatory system; Z83.3 Family history of diabetes mellitus; Z79.82 Long term (current) use of aspirin; Z79.899 Other long term (current) drug therapy; Z88.8 Allergy status to other drugs, medicaments and biological substances; Z91.040 Latex allergy status
CPT/HCPCS: 52356; C2625; C1769; J2710; J2405; J3010; J0330; J1170; J0690

== ENCOUNTER → 2018-06-20 | Outpatient (CLI) | payer MEDICARE ==
--- NOTE | 2018-06-20 12:13 | US ---
EXAMINATION TYPE: US kidneys/renal and bladder DATE OF EXAM: 06/20/2018 COMPARISON: NONE CLINICAL HISTORY: R93.4 Abnormal findings on diagnostic imaging of u. EXAM MEASUREMENTS: Right Kidney: 10.6 x 4.7 x 5.7 cm Left Kidney: 11.1 x 6.0 x 4.9 cm Right Kidney: No hydronephrosis. Two cystic areas visualized, largest lower pole measuring 4.3 x 5.3 x 5.0 cm Left Kidney: No hydronephrosis. Cystic area visualized upper pole measuring 0.9 cm Bladder: wnl Bilateral Jets seen: Yes There is no evidence for hydronephrosis at this point in time. No nephrolithiasis is seen. The uri nary bladder is anechoic. Bilateral ureteral jets are seen. IMPRESSION: Renal cystic changes as noted.
== END | disposition home or self-care (01) ==
LOC: RADUSWWP 10:57
PROVIDERS: ATTEND Urology
DX: Z09 Encounter for follow-up examination after completed treatment for conditions other than malignant neoplasm (principal); N28.1 Cyst of kidney, acquired
CPT/HCPCS: 76770

== ENCOUNTER → 2018-07-04 | Outpatient (CLI) | payer MEDICARE ==
[2018-07-04 12:00] LABS: Basophils # (A) 0.1 k/uL (0-0.2); Basophils % (A) 1 %; Eosinophils # (A) 0.4 k/uL (0-0.7); Eosinophils % (A) 8 %; HCT 36.5 % (39.0-53.0); HGB 11.7 gm/dL (13.0-17.5); Lymphocytes # (A) 1.2 k/uL (1.0-4.8); Lymphocytes % (A) 24 %; MCH 31.2 pg (25.0-35.0); MCHC 32.1 g/dL (31.0-37.0); MCV 97.3 fL (80.0-100.0); Mean Platelet Volume 7.5; Monocytes # (A) 0.3 k/uL (0-1.0); Monocytes % (A) 5 %; Neutrophils # (A) 3.2 k/uL (1.3-7.7); Neutrophils % (A) 60 %; Platelet Count 214 k/uL (150-450); RBC 3.75 m/uL (4.30-5.90); RDW 14.9 % (11.5-15.5); WBC 5.2 k/uL (3.8-10.6)
[2018-07-04 17:34] LABS: Albumin 3.4 g/dL (3.80-4.90); Albumin/Globulin Ratio 1.62 (1.60-3.17); Anion Gap 9.3 mmol/L (4.00-12.00); Calcium 8.6 mg/dL (8.7-10.3); Carbon Dioxide 21.7 mmol/L (21.6-31.8); Globulin 2.1 g/dL (1.6-3.3); Potassium 4.7 mmol/L (3.5-5.5); Total Bilirubin 0.4 mg/dL (0.2-1.2); Total Protein 5.5 g/dL (6.2-8.2)
[2018-07-04 17:41] LABS: T4, Free (Free Thyroxine) 1.3 ng/dL (0.80-1.80)
== END ==
LOC: LABWHC1 11:20
PROVIDERS: ATTEND Internal Medicine
DX: E05.90 Thyrotoxicosis, unspecified without thyrotoxic crisis or storm (principal)
CPT/HCPCS: 36415; 80053; 82550; 84439; 84443; 85025

== ENCOUNTER → 2018-08-17 | Outpatient (CLI) | payer MEDICARE ==
[2018-08-17 14:54] LABS: Basophils # (A) 0.1 k/uL (0-0.2); Basophils % (A) 1 %; Eosinophils # (A) 0.7 k/uL (0-0.7); Eosinophils % (A) 11 %; HCT 40.3 % (39.0-53.0); HGB 12.9 gm/dL (13.0-17.5); Lymphocytes # (A) 1.6 k/uL (1.0-4.8); Lymphocytes % (A) 26 %; MCH 32.2 pg (25.0-35.0); MCV 100.7 fL (80.0-100.0); Macrocytosis Slight; Mean Platelet Volume 8.1; Monocytes # (A) 0.3 k/uL (0-1.0); Monocytes % (A) 6 %; Neutrophils # (A) 3.2 k/uL (1.3-7.7); Neutrophils % (A) 52 %; Platelet Count 191 k/uL (150-450); RBC 4.01 m/uL (4.30-5.90); RDW 15.9 % (11.5-15.5)
[2018-08-17 18:10] LABS: African American GFR (CKD) 48.8 (60.0-200.0); Albumin 3.8 g/dL (3.80-4.90); Albumin/Globulin Ratio 1.9 (1.60-3.17); Anion Gap 6.7 mmol/L (4.00-12.00); Calcium 9.6 mg/dL (8.7-10.3); Carbon Dioxide 24.3 mmol/L (21.6-31.8); LDL Cholesterol,Calculated 74.2 mg/dL (0.0-131.0); Potassium 5.4 mmol/L (3.5-5.5); Total Bilirubin 0.4 mg/dL (0.2-1.2); Total Protein 5.8 g/dL (6.2-8.2); VLDL Calculation 35.8 mg/dL (5.00-40.00)
[2018-08-17 18:29] LABS: T4, Free (Free Thyroxine) 0.7 ng/dL (0.80-1.80)
[2018-08-17 21:40] LABS: Hemoglobin A1C 5.6 % (4.0-6.0)
== END | disposition home or self-care (01) ==
LOC: LABWHC1 14:06
PROVIDERS: ATTEND Internal Medicine
DX: R79.9 Abnormal finding of blood chemistry, unspecified (principal); E05.90 Thyrotoxicosis, unspecified without thyrotoxic crisis or storm; E78.2 Mixed hyperlipidemia
CPT/HCPCS: 36415; 80053; 80061; 82550; 83036; 84439; 84443; 85025

== ENCOUNTER → 2019-02-01 | Outpatient (CLI) | payer MEDICARE ==
[2019-02-01 16:45] LABS: Chol/HDL Ratio 2.73; LDL Cholesterol,Calculated 66.6 mg/dL (0.0-131.0); VLDL Calculation 16.4 mg/dL (5.00-40.00)
== END | disposition home or self-care (01) ==
LOC: LABWHC1 08:56
PROVIDERS: ATTEND Nurse Practitioner Adult Health
DX: E78.2 Mixed hyperlipidemia (principal)
CPT/HCPCS: 36415; 80061; 84450; 84460

== ENCOUNTER → 2019-10-19 | Outpatient (CLI) | payer MEDICARE ==
[2019-10-19 10:02] LABS: Basophils # (A) 0.1 k/uL (0-0.2); Basophils % (A) 1 %; Eosinophils # (A) 0.5 k/uL (0-0.7); Eosinophils % (A) 8 %; HCT 46.7 % (39.0-53.0); Lymphocytes # (A) 1.7 k/uL (1.0-4.8); Lymphocytes % (A) 28 %; MCH 31.3 pg (25.0-35.0); MCHC 32.2 g/dL (31.0-37.0); MCV 97.1 fL (80.0-100.0); Mean Platelet Volume 8.1; Monocytes # (A) 0.4 k/uL (0-1.0); Monocytes % (A) 6 %; Neutrophils # (A) 3.2 k/uL (1.3-7.7); Neutrophils % (A) 53 %; Platelet Count 175 k/uL (150-450); RDW 13.5 % (11.5-15.5); WBC 5.9 k/uL (3.8-10.6)
[2019-10-19 16:19] LABS: African American GFR (CKD) 70.6 (60.0-200.0); Albumin/Globulin Ratio 1.9 (1.60-3.17); Anion Gap 5.7 mmol/L (4.00-12.00); BUN/Creat Ratio 14.55 Ratio (12.00-20.00); Calcium 9.6 mg/dL (8.7-10.3); Carbon Dioxide 25.3 mmol/L (21.6-31.8); Chol/HDL Ratio 3.43; Globulin 2.1 g/dL (1.6-3.3); LDL Cholesterol,Calculated 82.6 mg/dL (0.0-131.0); Magnesium 1.8 mg/dL (1.5-2.4); Non-African American GFR(CKD) 60.9 (60.0-200.0); Total Bilirubin 0.9 mg/dL (0.2-1.2); Total Protein 6.1 g/dL (6.2-8.2); VLDL Calculation 29.4 mg/dL (5.00-40.00)
== END | disposition home or self-care (01) ==
LOC: LABWHC1 08:18
PROVIDERS: ATTEND Internal Medicine Interventional Cardiology
DX: E78.2 Mixed hyperlipidemia (principal); I10 Essential (primary) hypertension
CPT/HCPCS: 36415; 80053; 80061; 83735; 84443; 85025

== ENCOUNTER → 2020-05-09 | Outpatient (CLI) | payer MEDICARE ==
[2020-05-09 18:46] LABS: African American GFR (CKD) 63.5 (60.0-200.0); Albumin 4.2 g/dL (3.80-4.90); Albumin/Globulin Ratio 2.1 (1.60-3.17); BUN/Creat Ratio 13.33 Ratio (12.00-20.00); Calcium 9.4 mg/dL (8.7-10.3); Chol/HDL Ratio 3.25; LDL Cholesterol,Calculated 66.8 mg/dL (0.0-131.0); Non-African American GFR(CKD) 54.8 (60.0-200.0); Potassium 4.3 mmol/L (3.5-5.5); Total Bilirubin 0.9 mg/dL (0.3-1.2); Total Protein 6.2 g/dL (6.2-8.2); VLDL Calculation 23.2 mg/dL (5.00-40.00)
== END | disposition home or self-care (01) ==
LOC: LABWHC1 08:55
PROVIDERS: ATTEND Internal Medicine Interventional Cardiology
DX: E78.2 Mixed hyperlipidemia (principal)
CPT/HCPCS: 36415; 80053; 80061

== ENCOUNTER 2020-11-18 12:37 | Emergency (ER) | payer MEDICARE ==
[2020-11-18 13:27] VITALS: RESP 18
[2020-11-18 14:59] LABS: Basophils # (A) 0.1 k/uL (0-0.2); Basophils % (A) 1 %; Eosinophils # (A) 0.1 k/uL (0-0.7); Eosinophils % (A) 1 %; HCT 46.3 % (39.0-53.0); HGB 15.8 gm/dL (13.0-17.5); Lymphocytes # (A) 1.2 k/uL (1.0-4.8); Lymphocytes % (A) 12 %; MCH 32.7 pg (25.0-35.0); MCV 96.2 fL (80.0-100.0); Mean Platelet Volume 7.7; Monocytes # (A) 0.4 k/uL (0-1.0); Monocytes % (A) 5 %; Neutrophils # (A) 7.5 k/uL (1.3-7.7); Neutrophils % (A) 80 %; Platelet Count 181 k/uL (150-450); RBC 4.82 m/uL (4.30-5.90); RDW 14.2 % (11.5-15.5); WBC 9.4 k/uL (3.8-10.6)
[2020-11-18 15:07] LABS: ALT 17 U/L (4-49); AST 27 U/L (17-59); African American GFR (CKD) >90 (>60 ml/min/1.73 sqM); Alkaline Phosphatase 110 U/L (38-126); Amylase 74 U/L (30-110); Anion Gap 8 mmol/L; Blood Urea Nitrogen 15 mg/dL (9-20); Calcium 9.3 mg/dL (8.4-10.2); Carbon Dioxide 22 mmol/L (22-30); Chloride 99 mmol/L (98-107); Glucose 110 mg/dL (74-99); Lipase 96 U/L (23-300); Non-African American GFR(CKD) 83 (>60 ml/min/1.73 sqM); Potassium 4.7 mmol/L (3.5-5.1); Sodium 129 mmol/L (137-145); Total Bilirubin 1.2 mg/dL (0.2-1.3); Total Protein 6.7 g/dL (6.3-8.2)
[2020-11-18 15:24] LABS: Appearance,Urine Clear (Clear); Bilirubin,Urine Negative (Negative); Blood,Urine Moderate (Negative); Color,Urine Yellow; Glucose,Urine (UA) Negative (Negative); Ketones,Urine Negative (Negative); Leukocyte Esterase,Urine Negative (Negative); Mucus,Urine Rare /hpf; Nitrite,Urine Negative (Negative); PH, Urine 6.5 (5.0-8.0); Protein,Urine Negative (Negative); RBC,Urine 23 /hpf (0-5); Specific Gravity,Urine 1.013 (1.001-1.035); Urobilinogen,Urine <2.0 mg/dL (<2.0); WBC,Urine 1 /hpf (0-5)
--- NOTE | 2020-11-18 15:41 | ED ---
Abdominal Pain HPI - General Chief Complaint: Abdominal Pain Stated Complaint: Abd pain, Bleeding Time Seen by Provider: 11/18/20 14:53 Source: patient, RN notes reviewed Mode of arrival: ambulatory Limitations: no limitations - History of Present Illness Initial Comments: Patient is an 85-year-old male that presents to emergency room complaining of abdominal pain and constipation for the past several days. He notes his last bowel movement was proximal to 4 days ago. He noted he tried taking [id number] stool softeners and laxatives. With no relief. He notes that this morning he tried straining really hard with no relief. He notes he did have very minimal bright red blood. He suspects that he might of irritated a vessel and/or got a hemorrhoid. Patient was otherwise well-appearing in no apparent distress or pain. He denied any chest pain shortness of breath headache nausea vomiting diarrhea fever fatigue chills. - Related Data Home Medications Medication Instructions Recorded Confirmed Spironolactone [Aldactone] 12.5 mg PO QAM 12/03/16 05/05/18 Aspirin [Adult Low Dose Aspirin EC] 81 mg PO DAILY 11/16/17 05/05/18 Metoprolol Tartrate [Lopressor] 25 mg PO QAM 12/15/17 05/05/18 Omeprazole [PriLOSEC] 20 mg PO QAM 12/15/17 05/05/18 lisinopriL [Zestril] 5 mg PO BID 12/15/17 05/05/18 Sucralfate [Carafate] 1 gm PO TID 05/02/18 05/05/18 methIMAzole [Tapazole] 5 mg PO QAM 05/02/18 05/05/18 polyethylene glycoL 3350 [Miralax] 17 gm PO DAILY PRN 05/02/18 05/05/18 Previous Rx's Medication Instructions Recorded Atorvastatin [Lipitor] 80 mg PO HS #30 tab 11/20/13 Tamsulosin [Flomax] 0.4 mg PO DAILY #14 cap 02/25/18 Cephalexin [Keflex] 500 mg PO QID #28 cap 04/23/18 Hydrocodone/Acetaminophen [Quincy 1 - 2 each PO Q4HR PRN #10 tab 05/05/18 5-325] Allergies Allergy/AdvReac Type Severity Reaction Status Date / Time amlodipine besylate Allergy Rash/Hives Verified 10/04/21 13:27 [From Norvasc] isosorbide [From Imdur] Allergy Unknown Verified 11/18/20 13:27 Latex, Natural Rubber Allergy Rash/Hives Verified 11/18/20 13:27 Review of Systems ROS Statement: Those systems with pertinent positive or pertinent negative responses have been documented in the HPI. ROS Other: All systems not noted in ROS Statement are negative. 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 Last Myocardial Infarction Date:: History of Any Multi-Drug Resistant Organisms: None Reported Past Surgical History: Adenoidectomy, AICD, Appendectomy, Cholecystectomy, Heart Catheterization, Heart Catheterization With Stent, Joint Replacement, Orthopedic Surgery, Pacemaker, Tonsillectomy Additional Past Surgical History / Comment(s): AICD, Defrillation Testing 04/02/14, TOTAL LT/RT KNEE ARTHROPLASTY, bilateral CATARACTS, bilateral carpal tunnel releases, PARTIAL THYROIDECTOMY due to nodules, trigger fingers,heart stents x3 Past Anesthesia/Blood Transfusion Reactions: No Reported Reaction Additional Past Anesthesia/Blood Transfusion Reaction / Comment(s): wakes up during surgery,no hx blood transfusion Date of Last Stent Placement:: Type of Cardiac Device: AICD Device Placement Date:: 12-04-13 [employer] Past Psychological History: No Psychological Hx Reported Past Alcohol Use History: None Reported Past Drug Use History: None Reported - Past Family History Son(s) Family Medical History: No Reported History Father Family Medical History: Cancer, Coronary Artery Disease (CAD), CVA/TIA, Diabetes Mellitus Additional Family Medical History / Comment(s): CAROTID ARTERY BLOCKAGE.SX IN 1988 Mother Family Medical History: Unable to Obtain Additional Family Medical History / Comment(s): AT AGE 89- UNK HX Daughter(s) Family Medical History: Cancer (Patient has 2 adopted daughters and he has been under a lot of stress with his adopted daughter whom her left taking her cars with him.) BROTHER Family Medical History: Cancer Additional Family Medical History / Comment(s): BONE, PANCREATIC General Exam Limitations: no limitations General appearance: alert, in no apparent distress Head exam: Present: atraumatic, normocephalic, normal inspection Eye exam: Present: normal appearance, PERRL, EOMI. Absent: scleral icterus, conjunctival injection, periorbital swelling ENT exam: Present: normal exam, mucous membranes moist Neck exam: Present: normal inspection Respiratory exam: Present: normal lung sounds bilaterally. Absent: respiratory distress, wheezes, rales, rhonchi, stridor Cardiovascular Exam: Present: regular rate, normal rhythm, normal heart sounds. Absent: systolic murmur, diastolic murmur, rubs, gallop, clicks GI/Abdominal exam: Present: soft, normal bowel sounds, other (Abdomen nontender nondistended but did feel full.). Absent: distended, tenderness, guarding, rebound, rigid Extremities exam: Present: normal inspection, full ROM, normal capillary refill. Absent: tenderness, pedal edema, joint swelling, calf tenderness Neurological exam: Present: alert, oriented X3 Psychiatric exam: Present: normal affect, normal mood Skin exam: Present: warm, dry, intact, normal color. Absent: rash Course Vital Signs 11/18/20 11/18/20 13:23 15:23 Temperature 98.1 F Pulse Rate 79 71 Respiratory 18 18 Rate Blood Pressure 144/93 179/97 O2 Sat by Pulse 98 96 Oximetry Medical Decision Making - Medical Decision Making 85 she'll male complaining of abdominal pain constipation. Labs, KUB, urine or catheter placed due to for bladder repair. Labs unremarkable. Urinalysis shows moderate red blood cells, 23 red blood cells. KUB negative for any acute process does show fecal matter retention the rectum. Fleet enema ordered. Patient did have a large bowel movement after enema. Case discussed with Dr. Lilly, patient can discharge home. - Lab Data Result diagrams: 11/18/20 14:52 11/18/20 14:52 Lab Results 11/18/20 11/18/20 11/18/20 Range/Units 14:52 14:52 15:09 WBC 9.4 (3.8-10.6) k/uL RBC 4.82 (4.30-5.90) m/uL Hgb 15.8 (13.0-17.5) gm/dL Hct 46.3 (39.0-53.0) % MCV 96.2 (80.0-100.0) fL MCH 32.7 (25.0-35.0) pg MCHC 34.0 (31.0-37.0) g/dL RDW 14.2 (11.5-15.5) % Plt Count 181 (150-450) k/uL MPV 7.7 Neutrophils % 80 % Lymphocytes % 12 % Monocytes % 5 % Eosinophils % 1 % Basophils % 1 % Neutrophils # 7.5 (1.3-7.7) k/uL Lymphocytes # 1.2 (1.0-4.8) k/uL Monocytes # 0.4 (0-1.0) k/uL Eosinophils # 0.1 (0-0.7) k/uL Basophils # 0.1 (0-0.2) k/uL Sodium 129 L (137-145) mmol/L Potassium 4.7 (3.5-5.1) mmol/L Chloride 99 (98-107) mmol/L Carbon Dioxide 22 (22-30) mmol/L Anion Gap 8 mmol/L BUN 15 (9-20) mg/dL Creatinine 0.75 (0.66-1.25) mg/dL Est GFR (CKD-EPI)AfAm >90 (>60 ml/min/1.73 sqM) Est GFR (CKD-EPI)NonAf 83 (>60 ml/min/1.73 sqM) Glucose 110 H (74-99) mg/dL Calcium 9.3 (8.4-10.2) mg/dL Total Bilirubin 1.2 (0.2-1.3) mg/dL AST 27 (17-59) U/L ALT 17 (4-49) U/L Alkaline Phosphatase 110 (38-126) U/L Total Protein 6.7 (6.3-8.2) g/dL Albumin 4.0 (3.5-5.0) g/dL Amylase 74 (30-110) U/L Lipase 96 (23-300) U/L Urine Color Yellow Urine Appearance Clear (Clear) Urine pH 6.5 (5.0-8.0) Ur Specific Donovan 1.013 (1.001-1.035) Urine Protein Negative (Negative) Urine Glucose (UA) Negative (Negative) Urine Ketones Negative (Negative) Urine Blood Moderate H (Negative) Urine Nitrite Negative (Negative) Urine Bilirubin Negative (Negative) Urine Urobilinogen <2.0 (<2.0) mg/dL Ur Leukocyte Esterase Negative (Negative) Urine RBC 23 H (0-5) /hpf Urine WBC 1 (0-5) /hpf Urine Mucus Rare H (None) /hpf - Radiology Data Radiology results: report reviewed, image reviewed KUB: Multiple vascular calcifications are present within the pelvis. Degenerative disc changes are present in the visualized by. And there is a spinal curvature. Bone mineralization is reduced arthropathy noted in the hips. There is no evident bowel obstruction or pneumoperitoneum. Heart size is borderline increased there is an intracardiac different lately. Bowel gas obscures the kidneys. There is retained fecal debris present in the rectum. Disposition Clinical Impression: Constipation, Abdominal pain Disposition: HOME SELF-CARE Condition: Stable Instructions (If sedation given, give patient instructions): Abdominal Pain (ED) Additional Instructions: Please return to the Emergency Department if symptoms worsen or any other conc erns. Follow-up with primary care 1-2 days. Continue stool softeners can take Colace twice a day along with senna tablets. Increase oral fluids and dietary fiber. Is patient prescribed a controlled substance at d/c from ED?: No Referrals: Oskar Rowland MD [Primary Care Provider] - 1-2 days Time of Disposition: 16:37
--- NOTE | 2020-11-18 15:48 | XR ---
KUB HISTORY: Abdominal pain Frontal KUB submitted on 3 images and correlated to prior CT dated 04/23/2018 Multiple vascular calcifications are present within the pelvis. Degenerative disc changes are present in the visualized spine, and there is a spinal curvature. Bone mineralization is reduced, arthropath y noted in the hips. There is no evident bowel obstruction or pneumoperitoneum. Heart size is borderl ine increased, there is an intracardiac defibrillator lead. Bowel gas obscures the kidneys. There is retained fecal debris present in the rectum. IMPRESSION: Findings are nonspecific. Follow-up as indicated.
[2020-11-18 17:19] VITALS: BP 177/93; PULSE 88; TEMP 97.8
== END 2020-11-18 17:17 | disposition home or self-care (01) ==
LOC: EC 12:37
DX: K59.00 Constipation, unspecified (principal); R10.9 Unspecified abdominal pain; I11.0 Hypertensive heart disease with heart failure; I50.9 Heart failure, unspecified; I25.2 Old myocardial infarction; I25.10 Atherosclerotic heart disease of native coronary artery without angina pectoris; E78.5 Hyperlipidemia, unspecified; K21.9 Gastro-esophageal reflux disease without esophagitis; M19.90 Unspecified osteoarthritis, unspecified site; Z79.82 Long term (current) use of aspirin; Z79.899 Other long term (current) drug therapy; Z90.49 Acquired absence of other specified parts of digestive tract; Z95.0 Presence of cardiac pacemaker; Z83.3 Family history of diabetes mellitus; Z82.49 Family history of ischemic heart disease and other diseases of the circulatory system
CPT/HCPCS: 36415; 74018; 80053; 81001; 82150; 83690; 85025; 99284

== ENCOUNTER 2021-03-03 10:57 | Inpatient (IN) | payer MEDICARE ==
[2021-03-03] MEDS ORDERED: VANCOMYCIN IV PER PHARMACY 1 EACH MISC MISCELLANE PRN ×2 (11:38→14:31)
[2021-03-03] MEDS ORDERED: ACETAMINOPHEN TAB 500 MG TAB PO STA (11:38)
[2021-03-03] MEDS ORDERED: VANCOMYCIN 1,500 MG in SODIUM CHLORIDE 0.9% 250 ML IVPB STA (11:45)
[2021-03-03] MEDS ORDERED: ONDANSETRON 4 MG/2 ML VIAL IVP STA (11:58)
[2021-03-03] MEDS ORDERED: MORPHINE SULFATE 4 MG/ML SYRINGE IV STA (11:58)
[2021-03-03] MEDS ORDERED: TETRACAINE 0.5% OPHTH (PF) DROPS 4 ML BTL BOTH EYES STA (12:10)
[2021-03-03] MEDS ORDERED: FLUORESCEIN STRIPS 1 MG STRIP BOTH EYES ONE (12:10)
--- NOTE | 2021-03-03 12:15 | ED ---
Skin/Abscess/FB HPI - General Chief complaint: Skin/Abscess/Foreign Body Stated complaint: facial drooping & rash Time Seen by Provider: 03/03/21 11:36 Source: patient, family, RN notes reviewed Mode of arrival: wheelchair Limitations: no limitations - History of Present Illness Initial comments: This is a pleasant 85-year-old male with a history of hypertension and cardiovascular disease. Patient presents to the emergency department today complaining of a rash to his right face. Patient also has some body aching. He states he has a backache, upset stomach. Patient denies nausea or vomiting. No shortness of breath or chest pain. No problems with urination or bowel movements. Patient has had some chills and subjective fever. Patient states he had a fever this morning. He is also getting short of breath when he bends over. Patient denies any change in vision but does have macular degeneration and has very poor vision to begin with. - Related Data Home Medications Medication Instructions Recorded Confirmed Spironolactone [Aldactone] 12.5 mg PO QAM 12/03/16 05/05/18 Aspirin [Adult Low Dose Aspirin EC] 81 mg PO DAILY 11/16/17 05/05/18 Metoprolol Tartrate [Lopressor] 25 mg PO QAM 12/15/17 05/05/18 Omeprazole [PriLOSEC] 20 mg PO QAM 12/15/17 05/05/18 lisinopriL [Zestril] 5 mg PO BID 12/15/17 05/05/18 Sucralfate [Carafate] 1 gm PO TID 05/02/18 05/05/18 methIMAzole [Tapazole] 5 mg PO QAM 05/02/18 05/05/18 polyethylene glycoL 3350 [Miralax] 17 gm PO DAILY PRN 05/02/18 05/05/18 Previous Rx's Medication Instructions Recorded Atorvastatin [Lipitor] 80 mg PO HS #30 tab 11/20/13 Tamsulosin [Flomax] 0.4 mg PO DAILY #14 cap 02/25/18 Cephalexin [Keflex] 500 mg PO QID #28 cap 04/23/18 Hydrocodone/Acetaminophen [[place] 1 - 2 each PO Q4HR PRN #10 tab 05/05/18 5-325] Allergies Allergy/AdvReac Type Severity Reaction Status Date / Time amlodipine besylate Allergy Rash/Hives Verified 03/03/21 11:11 [From Norvasc] isosorbide [From Imdur] Allergy Unknown Verified 03/03/21 11:11 Latex, Natural Rubber Allergy Rash/Hives Verified 03/03/21 11:11 Review of Systems ROS Statement: Those systems with pertinent positive or pertinent negative responses have been documented in the HPI. ROS Other: All systems not noted in ROS Statement are negative. 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 Last Myocardial Infarction Date:: History of Any Multi-Drug Resistant Organisms: None Reported Past Surgical History: Adenoidectomy, AICD, Appendectomy, Cholecystectomy, Heart Catheterization, Heart Catheterization With Stent, Joint Replacement, Orthopedic Surgery, Pacemaker, Tonsillectomy Additional Past Surgical History / Comment(s): AICD, Defrillation Testing 04/02/14, TOTAL LT/RT KNEE ARTHROPLASTY, bilateral CATARACTS, bilateral carpal tunnel releases, PARTIAL THYROIDECTOMY due to nodules, trigger fingers,heart st ents x3 Past Anesthesia/Blood Transfusion Reactions: No Reported Reaction Additional Past Anesthesia/Blood Transfusion Reaction / Comment(s): wakes up during surgery,no hx blood transfusion Date of Last Stent Placement:: Type of Cardiac Device: AICD Device Placement Date:: 12-04-13 [employer] Past Psychological History: No Psychological Hx Reported Smoking Status: Never smoker Past Alcohol Use History: None Reported Past Drug Use History: None Reported - Past Family History Son(s) Family Medical History: No Reported History Father Family Medical History: Cancer, Coronary Artery Disease (CAD), CVA/TIA, Diabetes Mellitus Additional Family Medical History / Comment(s): CAROTID ARTERY BLOCKAGE.SX IN 1988 Mother Family Medical History: Unable to Obtain Additional Family Medical History / Comment(s): AT AGE 89- UNK HX Daughter(s) Family Medical History: Cancer (Patient has 2 adopted daughters and he has been under a lot of stress with his adopted daughter whom her left taking her cars with him.) BROTHER Family Medical History: Cancer Additional Family Medical History / Comment(s): BONE, PANCREATIC General Exam - General Exam Comments Initial Comments: 85-year-old male in mild distress secondary to fever and what appears to be right facial cellulitis. Limitations: no limitations General appearance: alert, in no apparent distress Head exam: Present: atraumatic, normocephalic, normal inspection Eye exam: Present: PERRL, EOMI, conjunctival injection, other (Patient has purulent drainage from the right eye. There is conjunctival injection.). Absent: scleral icterus, nystagmus, periorbital swelling Pupils: Present: other (Eye was stained, Blevins lamp examination revealed no significant uptake. No hypopyon or hyphema.). Absent: irregular ENT exam: Present: normal exam, normal oropharynx, mucous membranes dry, mucous membranes moist, other (Patient has erythema with yellow crusting to the right side of the face consistent with cellulitis/impetigo). Absent: TM's normal bilaterally, normal external ear exam Neck exam: Present: normal inspection. Absent: tenderness, meningismus, lymphadenopathy Respiratory exam: Present: normal lung sounds bilaterally. Absent: respiratory distress, wheezes, rales, rhonchi, stridor Cardiovascular Exam: Present: normal rhythm, tachycardia, normal heart sounds. Absent: systolic murmur, diastolic murmur, rubs, gallop, clicks GI/Abdominal exam: Present: soft, normal bowel sounds. Absent: distended, tenderness, guarding, rebound, rigid Extremities exam: Present: normal inspection, full ROM, normal capillary refill. Absent: tenderness, pedal edema, joint swelling, calf tenderness Back exam: Present: normal inspection Neurological exam: Present: alert, oriented X3, CN II-XII intact Psychiatric exam: Present: normal affect, normal mood Skin exam: Present: warm, dry, intact, rash, erythema, vesicles, other (Patient has erythematous rash to the right facial area, mostly in the mandibular and maxillary area as well as the infraorbital area. This does appear to affect the eye. There is some evidence of vesicular underlying rash. This does cross the midline and over the bridge of the nose.). Absent: cyanosis, diaphoretic Course Vital Signs 03/03/21 03/03/21 11:05 11:50 Temperature 99.1 F 98.9 F Pulse Rate 120 H 91 Respiratory 18 12 Rate Blood Pressure 142/87 170/98 O2 Sat by Pulse 95 94 L Oximetry Medical Decision Making - Medical Decision Making Patient presents with fever, tachycardia, chills, right facial rash which appears to be consistent with facial cellulitis, possible orbital involvement. There are some vesicles which certainly could be related to impetigo. However given the patient's history of small area starting on his cheek and burning pain. This does raise the thought of shingles with possible secondary infection. Sepsis protocol was initiated. I did give her 1 L fluid bolus. We'll reevaluate the patient. Patient was dosed with vancomycin and ceftriaxone. Cultures of discharge sent for laboratory investigation Case discussed in detail with the internal medicine physicianKashif. Patient will be admitted with infectious disease consultation. - Lab Data Result diagrams: 03/03/21 12:30 03/03/21 12:30 Lab Results 03/03/21 03/03/21 03/03/21 Range/Units 12:30 12:30 12:30 WBC 6.0 (3.8-10.6) k/uL RBC 5.04 (4.30-5.90) m/uL Hgb 16.8 (13.0-17.5) gm/dL Hct 49.5 (39.0-53.0) % MCV 98.2 (80.0-100.0) fL MCH 33.4 (25.0-35.0) pg MCHC 34.0 (31.0-37.0) g/dL RDW 12.8 (11.5-15.5) % Plt Count 140 L (150-450) k/uL MPV 8.1 Neutrophils % 76 % Lymphocytes % 11 % Monocytes % 8 % Eosinophils % 1 % Basophils % 1 % Neutrophils # 4.5 (1.3-7.7) k/uL Lymphocytes # 0.6 L (1.0-4.8) k/uL Monocytes # 0.5 (0-1.0) k/uL Eosinophils # 0.1 (0-0.7) k/uL Basophils # 0.1 (0-0.2) k/uL PT 11.6 (9.0-12.0) sec INR 1.1 (<1.2) APTT 25.3 (22.0-30.0) sec Sodium 132 L (137-145) mmol/L Potassium 4.4 (3.5-5.1) mmol/L Chloride 100 (98-107) mmol/L Carbon Dioxide 24 (22-30) mmol/L Anion Gap 8 mmol/L BUN 15 (9-20) mg/dL Creatinine 0.80 (0.66-1.25) mg/dL Est GFR (CKD-EPI)AfAm >90 (>60 ml/min/1.73 sqM) Est GFR (CKD-EPI)NonAf 81 (>60 ml/min/1.73 sqM) Glucose 112 H (74-99) mg/dL Plasma Lactic Acid Izaiah (0.7-2.0) mmol/L Calcium 9.4 (8.4-10.2) mg/dL Total Bilirubin 1.2 (0.2-1.3) mg/dL AST 27 (17-59) U/L ALT 18 (4-49) U/L Alkaline Phosphatase 109 (38-126) U/L Troponin I (0.000-0.034) ng/mL C-Reactive Protein 2.5 H (<1.0) mg/dL Total Protein 7.0 (6.3-8.2) g/dL Albumin 4.1 (3.5-5.0) g/dL Cortisol 19 ug/dL Coronavirus (PCR) (Not Detectd) Influenza Type A RNA (Not Detectd) Influenza Type B (PCR) (Not Detectd) 03/03/21 03/03/21 03/03/21 Range/Units 12:30 12:30 13:00 WBC (3.8-10.6) k/uL RBC (4.30-5.90) m/uL Hgb (13.0-17.5) gm/dL Hct (39.0-53.0) % MCV (80.0-100.0) fL MCH (25.0-35.0) pg MCHC (31.0-37.0) g/dL RDW (11.5-15.5) % Plt Count (150-450) k/uL MPV Neutrophils % % Lymphocytes % % Monocytes % % Eosinophils % % Basophils % % Neutrophils # (1.3-7.7) k/uL Lymphocytes # (1.0-4.8) k/uL Monocytes # (0-1.0) k/uL Eosinophils # (0-0.7) k/uL Basophils # (0-0.2) k/uL PT (9.0-12.0) sec INR (<1.2) APTT (22.0-30.0) sec Sodium (137-145) mmol/L Potassium (3.5-5.1) mmol/L Chloride (98-107) mmol/L Carbon Dioxide (22-30) mmol/L Anion Gap mmol/L BUN (9-20) mg/dL Creatinine (0.66-1.25) mg/dL Est GFR (CKD-EPI)AfAm (>60 ml/min/1.73 sqM) Est GFR (CKD-EPI)NonAf (>60 ml/min/1.73 sqM) Glucose (74-99) mg/dL Plasma Lactic Acid Izaiah 1.2 (0.7-2.0) mmol/L Calcium (8.4-10.2) mg/dL Total Bilirubin (0.2-1.3) mg/dL AST (17-59) U/L ALT (4-49) U/L Alkaline Phosphatase (38-126) U/L Troponin I 0.016 (0.000-0.034) ng/mL C-Reactive Protein (<1.0) mg/dL Total Protein (6.3-8.2) g/dL Albumin (3.5-5.0) g/dL Cortisol ug/dL Coronavirus (PCR) (Not Detectd) Influenza Type A RNA Not Detected (Not Detectd) Influenza Type B (PCR) Not Detected (Not Detectd) 03/03/21 Range/Units 13:00 WBC (3.8-10.6) k/uL RBC (4.30-5.90) m/uL Hgb (13.0-17.5) gm/dL Hct (39.0-53.0) % MCV (80.0-100.0) fL MCH (25.0-35.0) pg MCHC (31.0-37.0) g/dL RDW (11.5-15.5) % Plt Count (150-450) k/uL MPV Neutrophils % % Lymphocytes % % Monocytes % % Eosinophils % % Basophils % % Neutrophils # (1.3-7.7) k/uL Lymphocytes # (1.0-4.8) k/uL Monocytes # (0-1.0) k/uL Eosinophils # (0-0.7) k/uL Basophils # (0-0.2) k/uL PT (9.0-12.0) sec INR (<1.2) APTT (22.0-30.0) sec Sodium (137-145) mmol/L Potassium (3.5-5.1) mmol/L Chloride (98-107) mmol/L Carbon Dioxide (22-30) mmol/L Anion Gap mmol/L BUN (9-20) mg/dL Creatinine (0.66-1.25) mg/dL Est GFR (CKD-EPI)AfAm (>60 ml/min/1.73 sqM) Est GFR (CKD-EPI)NonAf (>60 ml/min/1.73 sqM) Glucose (74-99) mg/dL Plasma Lactic Acid Izaiah (0.7-2.0) mmol/L Calcium (8.4-10.2) mg/dL Total Bilirubin (0.2-1.3) mg/dL AST (17-59) U/L ALT (4-49) U/L Alkaline Phosphatase (38-126) U/L Troponin I (0.000-0.034) ng/mL C-Reactive Protein (<1.0) mg/dL Total Protein (6.3-8.2) g/dL Albumin (3.5-5.0) g/dL Cortisol ug/dL Coronavirus (PCR) Not Detected (Not Detectd) Influenza Type A RNA (Not Detectd) Influenza Type B (PCR) (Not Detectd) - EKG Data EKG Comments: EKG done at 1248 and read by the ED attending physician reveals sinus rhythm with occasional PVCs. Rate of 92, normal intervals, left axis deviation, poor R-wave progression, vision does have ST changes noted when compared to the previous study from 04/23/2018 Disposition Clinical Impression: Facial cellulitis, Bacterial conjunctivitis of right eye Disposition: ADMITTED IP TO THIS HOSP Condition: Fair Time of Disposition: 14:27 Decision to Admit Reason: Admit from EC Decision Time: 14:27
[2021-03-03 12:34] LABS: Basophils # (A) 0.1 k/uL (0-0.2); Basophils % (A) 1 %; Eosinophils # (A) 0.1 k/uL (0-0.7); Eosinophils % (A) 1 %; HCT 49.5 % (39.0-53.0); HGB 16.8 gm/dL (13.0-17.5); Lymphocytes # (A) 0.6 k/uL (1.0-4.8); Lymphocytes % (A) 11 %; MCH 33.4 pg (25.0-35.0); MCV 98.2 fL (80.0-100.0); Mean Platelet Volume 8.1; Monocytes # (A) 0.5 k/uL (0-1.0); Monocytes % (A) 8 %; Neutrophils # (A) 4.5 k/uL (1.3-7.7); Neutrophils % (A) 76 %; Platelet Count 140 k/uL (150-450); RBC 5.04 m/uL (4.30-5.90); RDW 12.8 % (11.5-15.5)
[2021-03-03] MEDS ORDERED: valACYclovir HCL 1,000 MG TABLET PO STA (12:34)
[2021-03-03 12:47] LABS: ALT 18 U/L (4-49); AST 27 U/L (17-59); African American GFR (CKD) >90 (>60 ml/min/1.73 sqM); Albumin 4.1 g/dL (3.5-5.0); Alkaline Phosphatase 109 U/L (38-126); Anion Gap 8 mmol/L; Blood Urea Nitrogen 15 mg/dL (9-20); C Reactive Protein 2.5 mg/dL (<1.0); Calcium 9.4 mg/dL (8.4-10.2); Carbon Dioxide 24 mmol/L (22-30); Chloride 100 mmol/L (98-107); Glucose 112 mg/dL (74-99); Non-African American GFR(CKD) 81 (>60 ml/min/1.73 sqM); Potassium 4.4 mmol/L (3.5-5.1); Sodium 132 mmol/L (137-145); Total Bilirubin 1.2 mg/dL (0.2-1.3)
[2021-03-03] MEDS: SODIUM CHLORIDE 0.9% 500 ML 500 ML IV SCH (12:56)
[2021-03-03 13:00] LABS: INR 1.1 (<1.2); Partial Thromboplastin Time 25.3 sec (22.0-30.0); Prothrombin Time 11.6 sec (9.0-12.0)
--- NOTE | 2021-03-03 13:29 | XR ---
EXAMINATION TYPE: XR chest 1V DATE OF EXAM: 03/03/2021 COMPARISON: Chest x-ray 02/06/2018, CT 04/23/2018 HISTORY: Fever, rash, facial drooping TECHNIQUE: Single frontal view of the chest is obtained. FINDINGS: Patient is rotated. Generators present in left pectoral region. Lead is present within the right ventricle, heart may be enlarged but may be accentuated by technique. Aorta is dense and aneur ysmal. No evident pneumothorax or pleural effusion. Lung volumes are low. Bandlike area of possible a telectasis present in the left mid lung. Arthropathy noted in the shoulders. IMPRESSION: No acute process. Some probable scarring or possibly atelectasis present in the left mid lung, rotated expiratory exam. There is aortic aneurysm. Additional findings above.
--- NOTE | 2021-03-03 14:14 | CT ---
EXAMINATION TYPE: CT facial bones w con DATE OF EXAM: 03/03/2021 COMPARISON: CT facial bones November 24, 2016 HISTORY: Rt facial cellulitis with occular involvement CT DLP: 554.9 mGycm Automated exposure control for dose reduction was used. CONTRAST: CT scan of the facial bones is performed with IV Contrast, patient injected with 100 mL of Isovue 300 . TECHNIQUE: CT scan of the facial bone is performed with IV contrast, axial images are obtained, coron al reformatted images are also reviewed. Patient injected with 100 cc Omnipaque 300 for the study. FINDINGS: Moderate asymmetric soft tissue swelling and fat stranding over the right zygoma and maxill jaydon sinus. No well-formed fluid collection or abscess identified. No suspicious bony destruction seen . No suspicious enhancing masses. Prominent submandibular lymph nodes bilaterally slightly larger on the right. Prominent borderline enlarged lymph node carotid space right submandibular level axial melony ge 13. Orbital floors and griffin are intact. Right-sided cortical buckle redemonstrated. Intraconal fat is pr eserved bilaterally. Visualized paranasal sinuses are clear. Visualized brain parenchyma shows diffuse cerebral atrophy an d chronic small vessel ischemic change. IMPRESSION: As above. Confirmation of right sided inflammatory change without well-formed fluid colle ction or drainable abscess.
[2021-03-03] MEDS: OFLOXACIN 0.3% OPHTH DROPS 5 ML BOTTLE RIGHT EYE SCH ×4 (14:24→21:52)
[2021-03-03] MEDS ORDERED: NALOXONE 0.4 MG/ML 1 ML VIAL IV PRN (14:28)
[2021-03-03 14:54] LABS: Appearance,Urine Clear (Clear); Bilirubin,Urine Negative (Negative); Blood,Urine Trace (Negative); Color,Urine Yellow; Glucose,Urine (UA) Negative (Negative); Ketones,Urine Trace (Negative); Leukocyte Esterase,Urine Negative (Negative); Mucus,Urine Rare /hpf; Nitrite,Urine Negative (Negative); PH, Urine 5.5 (5.0-8.0); Protein,Urine Trace (Negative); RBC,Urine 4 /hpf (0-5); Urobilinogen,Urine <2.0 mg/dL (<2.0); WBC,Urine 1 /hpf (0-5)
[2021-03-03 14:59] LABS: Specific Gravity,Urine >1.050 (1.001-1.035)
[2021-03-03] MEDS ORDERED: NITROGLYCERIN SL TABS 0.4 MG TAB SUBLINGUAL PRN (17:27)
[2021-03-03] MEDS ORDERED: valACYclovir HCL 1,000 MG TABLET PO SCH (20:00)
[2021-03-03] MEDS: ENOXAPARIN 40 MG/0.4 ML SYRINGE SQ SCH (20:44)
[2021-03-03] MEDS: traMADol 50 MG TAB PO SCH (21:52)
--- NOTE | 2021-03-03 23:01 | P.CONS ---
History of Present Illness - Reason for Consult Consult date: 03/03/21 herpes zoster face Requesting physician: David Jim - Chief Complaint rash right side of face x 3 days - History of Present Illness History of present illness : Patient is 85-year-old male with a past medical history significant for hypertension cardiovascular disease presenting to the ER for evaluation of rash to the right side of the face that apparently started about 3 days ago and has gradually increased to involve most of the right side of his face patient complaining of burning pain to the right side of the face with intensity 7-8 out of 10 and no radiation patient denies having any purulent drainage patient apparently did have a fever at home before presentation to the hospital with this into the patient was evaluated by the ER physician on arrival to the ER to be to have low-grade fever of 99.1 degrees for right patient did have a normal white count kidney function has been normal liver exams are normal urine is negative: Episode was negative influenza was negative patient did have a chest x-ray no acute process CT of the face right-sided extremity changes without well-formed fluid collection or drainable abscess patient has been diagnosed with herpes zoster he was started on Valtrex in addition to the vancomycin and Rocephin admitted to the hospital infectious disease was consulted for further management of antibiotic therapy Review of system: CONSTITUTIONAL: Positive for weakness along with the fever. EYES: As per history of present illness. ENT: No complaint. RESPIRATORY: No complaint. CARDIOVASCULAR: No complaint. GENITOURINARY: No complaint. GASTROINTESTINAL: No complaint. MUSCULOSKELETAL: No complaint. INTEGUMENTARY: As per history of present illness. PSYCHOLOGIC: No complaint. ENDOCRINE: No complaint. NEUROLOGIC: No complaint. Past medical history : Reviewed, documented below Past surgical history : Reviewed, documented below Social history: Reviewed, documented below Medications: Reviewed, as documented below EXAMINATION: Vital sigans= Reviewed and documented below GENERAL DESCRIPTION: Elderly male lying in bed, no distress. No tachypnea or accessory muscle of respiration use. HEENT: Shows Pallor , no scleral icterus. Oral mucous membrane is dry. Right- sided herpes zoster involving the maxillary branch with no evidence of any secondary cellulitis NECK: Trachea central, no thyromegaly. LUNGS: Unlabored breathing. Clear to auscultation anteriorly. No wheeze or crackle. HEART: S1, S2, regular rate and rhythm. ABDOMEN: Soft, no tenderness , guarding or rigidity EXTREMITIES: No edema of feet. SKIN: No rash, no masses palpable. NEUROLOGICAL: The patient is awake, alert, oriented x3, mood and affect normal. LABS AND RADIOLOGY: Reviewed results see below Assessment : Patient with right-sided herpes zoster involving the maxillary division of the trigeminal nerve with no evidence of any secondary cellulitis Plan: 1-we will switch Valtrex to IV acyclovir 10 mg/kg every 8hrs 2-discontinue vancomycin and Rocephin 3-we will monitor his kidney function closely We will follow on clinical condition and cultures to further adjust medication if needed Thank you for this consultation we will follow the patient along with you Past Medical History Past Medical History: Coronary Artery Disease (CAD), Heart Failure, Eye Disorder, GERD/Reflux, GI Bleed, Hyperlipidemia, Hypertension, Myocardial Infarction (TX), Osteoarthritis (OA), Prostate Disorder, Thyroid Disorder Additional Past Medical History / Comment(s): cardiomyopathy, DENGENERATIVE ARTHRITIS, MACULAR DEGENERATION AND CATARACTS,GI BLEED 2011, fall 11-24-16/fac ial inj/bruing/broken front teeth,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 Last Myocardial Infarction Date:: History of Any Multi-Drug Resistant Organisms: None Reported Past Surgical History: Adenoidectomy, AICD, Appendectomy, Cholecystectomy, Heart Catheterization, Heart Catheterization With Stent, Joint Replacement, Orthopedic Surgery, Pacemaker, Tonsillectomy Additional Past Surgical History / Comment(s): AICD, Defrillation Testing 04/02/14, TOTAL LT/RT KNEE ARTHROPLASTY, bilateral CATARACTS, bilateral carpal tunnel releases, PARTIAL THYROIDECTOMY due to nodules, trigger fingers,heart stents x3 Past Anesthesia/Blood Transfusion Reactions: No Reported Reaction Additional Past Anesthesia/Blood Transfusion Reaction / Comm: wakes up during surgery,no hx blood transfusion Date of Last Stent Placement:: Type of Cardiac Device: AICD Device Placement Date:: 12-04-13 [employer] Past Psychological History: No Psychological Hx Reported Smoking Status: Never smoker Past Alcohol Use History: None Reported Past Drug Use History: None Reported - Past Family History Son(s) Family Medical History: No Reported History Father Family Medical History: Cancer, Coronary Artery Disease (CAD), CVA/TIA, Diabetes Mellitus Additional Family Medical History / Comment(s): CAROTID ARTERY BLOCKAGE.SX IN 1988 Mother Family Medical History: Unable to Obtain Additional Family Medical History / Comment(s): AT AGE 89- UNK HX Daughter(s) Family Medical History: Cancer (Patient has 2 adopted daughters and he has been under a lot of stress with his adopted daughter whom her left taking her cars with him.) BROTHER Family Medical History: Cancer Additional Family Medical History / Comment(s): BONE, PANCREATIC Medications and Allergies Home Medications Medication Instructions Recorded Confirmed Type Spironolactone [Aldactone] 12.5 mg PO DAILY 12/03/16 03/03/21 History Aspirin [Adult Low Dose Aspirin EC] 81 mg PO DAILY 11/16/17 03/03/21 History Atorvastatin [Lipitor] 80 mg PO DAILY 03/03/21 03/03/21 History Cetirizine HCl [Zyrtec] 10 mg PO DAILY 03/03/21 03/03/21 History Famotidine 40 mg PO DAILY 03/03/21 03/03/21 History Lisinopril [Prinivil] 5 mg PO DAILY 03/03/21 03/03/21 History Metoprolol Tartrate [Lopressor] 25 mg PO DAILY 03/03/21 03/03/21 History Nitroglycerin Sl Tabs [Nitrostat] 0.4 mg SL Q5M PRN 03/03/21 03/03/21 History Omeprazole 40 mg PO DAILY 03/03/21 03/03/21 History Allergies Allergy/AdvReac Type Severity Reaction Status Date / Time amlodipine besylate Allergy Rash/Hives Verified 03/03/21 14:40 [From Norvasc] isosorbide [From Imdur] Allergy Unknown Verified 03/03/21 14:40 Latex, Natural Rubber Allergy Rash/Hives Verified 03/03/21 14:40 Physical Exam Vitals: Vital Signs Temp Pulse Resp BP Pulse Ox 03/03/21 14:28 98.2 F 89 14 149/73 92 L 03/03/21 11:50 98.9 F 91 12 170/98 94 L 03/03/21 11:05 99.1 F 120 H 18 142/87 95 Intake and Output 03/03/21 03/03/21 03/03/21 06:59 14:59 22:59 Other: Weight 88.451 kg Results CBC & Chem 7: 03/03/21 12:30 03/03/21 12:30 Labs: Abnormal Lab Results - Last 24 Hours (Table) 03/03/21 03/03/21 03/03/21 Range/Units 12:30 12:30 14:46 Plt Count 140 L (150-450) k/uL Lymphocytes # 0.6 L (1.0-4.8) k/uL Sodium 132 L (137-145) mmol/L Glucose 112 H (74-99) mg/dL C-Reactive Protein 2.5 H (<1.0) mg/dL Ur Specific [place] >1.050 H (1.001-1.035) Urine Protein Trace H (Negative) Urine Ketones Trace H (Negative) Urine Blood Trace H (Negative) Urine Mucus Rare H (None) /hpf
[2021-03-04] MEDS: SODIUM CHLORIDE 0.9% IV SCH ×3 (00:36→17:17)
[2021-03-04] MEDS: ACYCLOVIR SODIUM IV SCH ×3 (00:36→17:17)
[2021-03-04] MEDS ORDERED: VANCOMYCIN 1,500 MG in SODIUM CHLORIDE 0.9% 250 ML IVPB SCH ×2 (05:00→12:00)
[2021-03-04] MEDS: ACETAMINOPHEN TAB 325 MG TAB PO PRN (05:56)
[2021-03-04] MEDS: ONDANSETRON 4 MG/2 ML VIAL IVP PRN (05:57)
[2021-03-04] MEDS: OFLOXACIN 0.3% OPHTH DROPS 5 ML BOTTLE RIGHT EYE SCH ×5 (06:08→23:09)
[2021-03-04 06:41] LABS: Basophils % (A) 1 %; Eosinophils % (A) 1 %; HCT 47.1 % (39.0-53.0); HGB 15.3 gm/dL (13.0-17.5); Lymphocytes # (A) 0.8 k/uL (1.0-4.8); Lymphocytes % (A) 15 %; MCH 32.2 pg (25.0-35.0); MCHC 32.5 g/dL (31.0-37.0); MCV 99.2 fL (80.0-100.0); Mean Platelet Volume 8.1; Monocytes # (A) 0.5 k/uL (0-1.0); Monocytes % (A) 9 %; Neutrophils # (A) 3.8 k/uL (1.3-7.7); Neutrophils % (A) 71 %; Platelet Count 134 k/uL (150-450); RBC 4.75 m/uL (4.30-5.90); RDW 12.9 % (11.5-15.5); WBC 5.4 k/uL (3.8-10.6)
[2021-03-04 06:49] LABS: ALT 15 U/L (4-49); AST 23 U/L (17-59); African American GFR (CKD) >90 (>60 ml/min/1.73 sqM); Albumin 3.3 g/dL (3.5-5.0); Albumin/Globulin Ratio 1.3; Alkaline Phosphatase 87 U/L (38-126); Anion Gap 6 mmol/L; Blood Urea Nitrogen 14 mg/dL (9-20); C Reactive Protein 5.2 mg/dL (<1.0); Calcium 8.7 mg/dL (8.4-10.2); Carbon Dioxide 22 mmol/L (22-30); Chloride 101 mmol/L (98-107); Globulin 2.5 g/dL; Glucose 120 mg/dL (74-99); Non-African American GFR(CKD) 87 (>60 ml/min/1.73 sqM); Potassium 4.4 mmol/L (3.5-5.1); Sodium 129 mmol/L (137-145); Total Protein 5.8 g/dL (6.3-8.2)
[2021-03-04] MEDS ORDERED: lisinopriL 5 MG TAB PO SCH (09:00)
[2021-03-04] MEDS ORDERED: METOPROLOL TARTRATE 25 MG TAB PO SCH (09:00)
[2021-03-04] MEDS: FAMOTIDINE 20 MG TAB PO SCH (09:07)
[2021-03-04] MEDS: SPIRONOLACTONE 25 MG TAB PO SCH (09:07)
[2021-03-04] MEDS: ENOXAPARIN 40 MG/0.4 ML SYRINGE SQ SCH (09:08)
[2021-03-04] MEDS: LORATADINE 10 MG TAB PO SCH (09:08)
[2021-03-04] MEDS: ATORVASTATIN 80 MG TAB PO SCH (09:08)
[2021-03-04] MEDS: PANTOPRAZOLE 40 MG TABLET PO SCH (09:08)
[2021-03-04] MEDS: traMADol 50 MG TAB PO SCH ×3 (09:08→23:02)
[2021-03-04] MEDS: ASPIRIN 81 MG PO SCH (09:08)
[2021-03-04] MEDS ORDERED: VANCOMYCIN IV PER PHARMACY 1 EACH MISC MISCELLANE PRN (11:03)
--- NOTE | 2021-03-04 16:54 | CONS ---
CONSULTATION CHIEF COMPLAINT: Redness right eye. HISTORY OF PRESENT ILLNESS: The patient was admitted to the hospital with shingles on the right side of the face on Wednesday night. PAST SURGICAL HISTORY: The patient has extensive macular degeneration and had cataract surgery done by Dr. Baker. The patient also had retinal detachment which were reattached by Dr. Sierra. PAST MEDICAL HISTORY: Medical history reviewed. EYE EXAMINATION: Vision is counting fingers at 5 feet in both eyes. Extraocular motility is full. Pupils are equal and reactive and measures 2 mm each. Cornea clear in both eyes. No dendritic figures. The right conjunctiva shows 1+ injection. The lid shows crust and redness of the right upper and lower lid and shingles on the right side of the face with nose involvement. Intra-ocular pressure measured with difficulty due to the lid edema was around 20 mmHg. Anterior chamber looked . 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 ASSESSMENT: 1. Right herpes zoster. 2. Right conjunctivitis. 3. Advanced age related macular degeneration. 4. Retinal detachment repaired both eyes. PLAN: I will start the patient on ciprofloxacin 4 times a day to the right eye. Need to be evaluated back in 3-4 days to recheck the retina for any vasculitis and to recheck for any increase of intra-ocular pressure due to shingles. The patient was offered to call our office or to go to Dr. Baker in the next 3 days when he is discharged. [id number] / CHRISTIANON: [id number] /
[2021-03-04] MEDS: CIPROFLOXACIN 0.3% OPHTH SOLN 5 ML BTL RIGHT EYE SCH ×2 (18:09→23:06)
[2021-03-04] MEDS: lisinopriL 10 MG TAB PO SCH (23:05)
[2021-03-04] MEDS: METOPROLOL TARTRATE 25 MG TAB PO SCH (23:05)
[2021-03-05] MEDS: OFLOXACIN 0.3% OPHTH DROPS 5 ML BOTTLE RIGHT EYE SCH ×6 (00:31→22:10)
[2021-03-05] MEDS: SODIUM CHLORIDE 0.9% IV SCH ×3 (01:05→15:25)
[2021-03-05] MEDS: ACYCLOVIR SODIUM IV SCH ×3 (01:05→15:25)
[2021-03-05] MEDS: CIPROFLOXACIN 0.3% OPHTH SOLN 5 ML BTL RIGHT EYE SCH ×3 (05:36→22:09)
[2021-03-05 06:33] LABS: African American GFR (CKD) >90 (>60 ml/min/1.73 sqM); Non-African American GFR(CKD) 84 (>60 ml/min/1.73 sqM)
[2021-03-05] MEDS: ENOXAPARIN 40 MG/0.4 ML SYRINGE SQ SCH (08:23)
[2021-03-05] MEDS: SPIRONOLACTONE 25 MG TAB PO SCH (08:24)
[2021-03-05] MEDS: ASPIRIN 81 MG PO SCH (08:24)
[2021-03-05] MEDS: ATORVASTATIN 80 MG TAB PO SCH (08:24)
[2021-03-05] MEDS: PANTOPRAZOLE 40 MG TABLET PO SCH (08:24)
[2021-03-05] MEDS: lisinopriL 10 MG TAB PO SCH ×2 (08:24→22:09)
[2021-03-05] MEDS: LORATADINE 10 MG TAB PO SCH (08:24)
[2021-03-05] MEDS: FAMOTIDINE 20 MG TAB PO SCH (08:24)
[2021-03-05] MEDS: traMADol 50 MG TAB PO SCH ×3 (08:24→22:09)
[2021-03-05] MEDS: METOPROLOL TARTRATE 25 MG TAB PO SCH ×2 (08:25→22:09)
[2021-03-05] MEDS: LACTULOSE 20 GM/30 ML CUP PO SCH ×2 (11:25→22:08)
--- NOTE | 2021-03-05 15:35 | P.HPIM ---
History of Present Illness H&P Date: 03/03/21 Chief Complaint: Right facial cellulitis/herpes zoster HISTORY OF PRESENT ILLNESS: This is an 85-year-old male with a previous medical history significant for hypertension and hypertensive cardio vascular disease, hyperlipidemia, paroxysmal atrial fibrillation, coronary artery disease with ischemic cardiomyopathy, enlarged prostate, history of AICD, patient presented to the emergency department at [facility] yesterday with increased right sided facial pain that was started on past Wednesday with increased burning sensation associated with increased blisters to the right face as well as the right eye in the rightpatient was not able to tolerate the pain his son brought him to the emergency department for evaluation and patient was found to have a significant herpes zoster infection associated with cellulitis to the right face, patient was started on Valtrex 1 g orally 3 times every day, he was placed also on IV antibiotic in the form of vancomycin and ceftriaxone, and he was admitted to the hospital for evaluation by infectious disease, ophthalmology examination was obtained from Dr. Claire REVIEW OF SYSTEMS: Constitutional: No documented fever, no chills, no night sweats. No weight change. Positive for weakness, fatigue no lethargy. No daytime sleepiness. HEENT: Positive for headache. Positive blurred vision or double vision, no loss of vision. Positive for loss of Hearing, no ringing in the ears, no dizziness. Positive for nasal crust or congestion. No epistaxis. No sore throat. Lungs: No shortness of breath, no cough, no sputum production. No wheezing. Reports dyspnea with activity. Cardiovascular: No chest pain, no lower extremity edema. No palpitations. No paroxysmal nocturnal dyspnea. No orthopnea. No lightheadedness or dizziness. No syncopal episodes. Abdominal: Reports abdominal pain. No nausea, vomiting. No diarrhea. positive for constipation. No bloody or tarry stools reports loss of appetite. Genitourinary: No dysuria, increased frequency, urgency. No urinary retention. Musculoskeletal: No myalgias. Positive for muscle weakness, no gait dysfunction, no frequent falls. No back pain. No neck pain. Integumentary: There is vesicular lesion on an erythematous base with significant crusting to the nose and nasolabial area along with the right cheek and right eye, with purulent drainage out of the right lower eyelid. Neurologic: No aphasia. No facial droop. No change in mentation. No head injury. No headache. No paralysis. No paresthesia. Psychiatric: No depression. No anxiety. No mood swings. Endocrine: No abnormal blood sugars. No weight change. PAST MEDICAL HISTORY: hypertension and hypertensive cardiovascular disease. Hyperlipidemia. Paroxysmal atrial fibrillation. Ischemic cardiopathy. Enlarged prostate with lower urinary tract symptoms. ALLERGIC rhinitis Coronary artery disease. Hard of hearing. Gait dysfunction. Amiodarone-induced thyrotoxicosis. PAST SURGICAL HISTORY: arthroscopic knee surgery. Appendectomy. Tonsillectomy and adenoidectomy. Cholecystectomy. Carpal tunnel surgery. Bilateral cataract surgery. Left heart catheterization with PCI. AICD 2013. Bilateral total knee arthroplasties. Partial thyroidectomy. SOCIAL HISTORY: patient uses followed by a pack every day from [id number], he currently lives in senior citizen apartment, he denies any alcohol ingestion, no drug use or abuse, uses a walker for ambulation FAMILY HISTORY: father at age of 90 after carotid endarterectomy, also had a history of CAD CVA and diabetes along with cancer mother at age of 89 from unknown reason patient had one brother who from pancreatic cancer with metastatic disease to the bone patient has one son who is alive and well and one daughter with adopted granddaughter. PHYSICAL EXAMINATION: General: this is an 82-year-old male who is sitting up in bed in no distress HEENT: Head is atraumatic, normocephalic, pupils were equal round reactive to light and recommendation, extraocular muscle movement were intact, sclera nonicteric, conjunctivae were pale, mucous membranes of the mouth are somewhat dry. Neck: Supple, no JVP, normal carotid upstroke bilaterally, no lymphadenopathy. Chest: Decreased breath sounds at the bases, few rhonchi, no extremity wheezes, no chest wall tenderness, no intercostal retractions. Heart: First heart sound is normal, second heart sound is normal there is systolic ejection murmur 2/6 located in the left sternal border, there is AICD in the left upper precordium. Abdomen: Soft, nontender, nondistended, positive bowel sounds. there is no hepatosplenomegaly. Extremities: There is no edema no calf tenderness DP +2 bilaterally. Neurologic examination: Patient is awake alert and oriented X 3, cranial nerves II-12 appear grossly intact, muscle power were 5 out of 5 in upper extremities and 5 out of 5 in bilateral lower extremities, deep tendon reflexes normal bilaterally. ASSESSMENT AND PLAN: 1. Right facial herpes zoster with eye involvement. Start the patient on Valtr ex 1 g orally 3 times every day, start the patient on Cipro floxacillin 0.3% to be applied 4 times every day, urgent ophthalmology examination and consultation, monitor the patient very closely, start the patient on tramadol 50 mg orally 2 times every day for pain control. 2. Right facial cellulitis likely Staphylococcus aureus and top of the herpes zoster area. Start the patient on vancomycin as well as ceftriaxone, infectious disease consultation, culture the wound, culture the blood, follow-up with the patient. 3. Hypertension and hypertensive cardio vascular disease. Continue patient on lisinopril 5 mg orally once every day as well as metoprolol 25 mg orally once every day. 4. Hyperlipidemia. Continue patient on atorvastatin 80 mg orally once every day. 5. CAD post-PCI with ischemic cardiopathy. Continue aspirin 81 mg once every day, metoprolol 25 minute gram orally once every day, atorvastatin 80 mg orally once every day, hold off Lasix for now. 6. ALLERGIC rhinitis. Continue patient on loratadine 10 mg orally once every day. 7. GERD. Continue omeprazole 40 mg orally once every day as well as famotidine 40 g at bedtime. 8. Constipation. Start the patient on lactulose 20 g orally twice every day, continue Senokot S2 tablet orally bedtime may use MiraLAX 17 g in 8 ounces water as needed. 9. Enlarged prostate. Continue tamsulosin 0.4 g orally once every day. 10. DVT prophylaxis. Continue patient on Lovenox 40 mg subcutaneously every 24 hours. 11. GI prophylaxis. Continue PPI. 12. Admit to inpatient. Estimate a length of stay 2 midnights. 13. Full code. 14. Physical therapy and occupational therapy evaluation. 15. police worker consultation for discharge planning. Past Medical History Past Medical History: Coronary Artery Disease (CAD), Heart Failure, Eye Disorder, GERD/Reflux, GI Bleed, Hyperlipidemia, Hypertension, Myocardial Infarction (RI), Osteoarthritis (OA), Prostate Disorder, Thyroid Disorder Additional Past Medical History / Comment(s): cardiomyopathy, DENGENERATIVE ARTHRITIS, MACULAR DEGENERATION AND CATARACTS,GI BLEED 2011, fall 11-24-16/facial inj/bruing/broken front teeth,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 Last Myocardial Infarction Date:: History of Any Multi-Drug Resistant Organisms: None Reported Past Surgical History: Adenoidectomy, AICD, Appendectomy, Cholecystectomy, Heart Catheterization, Heart Catheterization With Stent, Joint Replacement, Orthopedic Surgery, Pacemaker, Tonsillectomy Additional Past Surgical History / Comment(s): AICD, Defrillation Testing 04/02/14, TOTAL LT/RT KNEE ARTHROPLASTY, bilateral CATARACTS, bilateral carpal tunnel releases, PARTIAL THYROIDECTOMY due to nodules, trigger fingers,heart stents x3 Past Anesthesia/Blood Transfusion Reactions: No Reported Reaction Additional Past Anesthesia/Blood Transfusion Reaction / Comment(s): wakes up during surgery,no hx blood transfusion Date of Last Stent Placement:: Type of Cardiac Device: AICD Device Placement Date:: 12-04-13 [employer] Past Psychological History: No Psychological Hx Reported Smoking Status: Never smoker Past Alcohol Use History: None Reported Past Drug Use History: None Reported - Past Family History Son(s) Family Medical History: No Reported History Father Family Medical History: Cancer, Coronary Artery Disease (CAD), CVA/TIA, Diabetes Mellitus Additional Family Medical History / Comment(s): CAROTID ARTERY BLOCKAGE.SX IN 1988 Mother Family Medical History: Unable to Obtain Additional Family Medical History / Comment(s): AT AGE 89- UNK HX Daughter(s) Family Medical History: Cancer (Patient has 2 adopted daughters and he has been under a lot of stress with his adopted daughter whom her left taking her cars with him.) BROTHER Family Medical History: Cancer Additional Family Medical History / Comment(s): BONE, PANCREATIC Medications and Allergies Home Medications Medication Instructions Recorded Confirmed Type Spironolactone [Aldactone] 12.5 mg PO DAILY 12/03/16 03/03/21 History Aspirin [Adult Low Dose Aspirin EC] 81 mg PO DAILY 11/16/17 03/03/21 History Atorvastatin [Lipitor] 80 mg PO DAILY 03/03/21 03/03/21 History Cetirizine HCl [Zyrtec] 10 mg PO DAILY 03/03/21 03/03/21 History Famotidine 40 mg PO DAILY 03/03/21 03/03/21 History Lisinopril [Prinivil] 5 mg PO DAILY 03/03/21 03/03/21 History Metoprolol Tartrate [Lopressor] 25 mg PO DAILY 03/03/21 03/03/21 History Nitroglycerin Sl Tabs [Nitrostat] 0.4 mg SL Q5M PRN 03/03/21 03/03/21 History Omeprazole 40 mg PO DAILY 03/03/21 03/03/21 History Allergies Allergy/AdvReac Type Severity Reaction Status Date / Time amlodipine besylate Allergy Rash/Hives Verified 03/03/21 14:40 [From Norvasc] isosorbide [From Imdur] Allergy Unknown Verified 03/03/21 14:40 Latex, Natural Rubber Allergy Rash/Hives Verified 03/03/21 14:40 Physical Exam Vitals: Vital Signs Temp Pulse Resp BP Pulse Ox 03/03/21 14:28 98.2 F 89 14 149/73 92 L 03/03/21 11:50 98.9 F 91 12 170/98 94 L 03/03/21 11:05 99.1 F 120 H 18 142/87 95 Intake and Output 03/03/21 03/03/21 03/03/21 06:59 14:59 22:59 Other: Weight 88.451 kg Results CBC & Chem 7: 03/04/21 05:58 03/05/21 05:15 Labs: Abnormal Lab Results - Last 24 Hours (Table) 03/03/21 03/03/21 03/03/21 Range/Units 12:30 12:30 14:46 Plt Count 140 L (150-450) k/uL Lymphocytes # 0.6 L (1.0-4.8) k/uL Sodium 132 L (137-145) mmol/L Glucose 112 H (74-99) mg/dL C-Reactive Protein 2.5 H (<1.0) mg/dL Ur Specific [place] >1.050 H (1.001-1.035) Urine Protein Trace H (Negative) Urine Ketones Trace H (Negative) Urine Blood Trace H (Negative) Urine Mucus Rare H (None) /hpf
[2021-03-05] MEDS: ACETAMINOPHEN TAB 325 MG TAB PO PRN (22:08)
--- NOTE | 2021-03-05 23:18 | P.PN ---
Subjective Progress Note Date: 03/04/21 Principal diagnosis: Right-sided facial cellulitis/herpes zoster Patient is 85-year-old male presented to hospital right-sided facial swelling and redness in this patient diagnosed with right-sided herpes zoster and conjunctivitis. On today's evaluation that is 03/04/2021 the patient denies having any fever or any chills, patient right-sided facial swelling redness Decreased dull complaining of some discomfort imaging no nausea no vomiting no abdominal pain no diarrhea Objective - Vital Signs Vital signs: Vital Signs Temp 98.7 F 03/04/21 06:02 Pulse 86 03/04/21 09:13 Resp 18 03/04/21 09:13 BP 172/84 03/04/21 09:13 Pulse Ox 92 L 03/04/21 09:13 Intake & Output 03/03/21 03/04/21 03/04/21 18:59 06:59 18:59 Output Total 100 Balance -100 Weight 88.451 kg Output: Urine 100 Other: Voiding Method Urinal Toilet Urinal # Voids 1 - Exam GENERAL DESCRIPTION: Middle-aged male lying in bed, no distress. No tachypnea or accessory muscle of respiration use. HEENT: Right-sided facial swelling redness and vesicular rash LUNGS: Unlabored breathing. Clear to auscultation anteriorly. 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 HEART: S1, S2, regular rate and rhythm. No loud murmur ABDOMEN: Soft, no tenderness , guarding or rigidity, no organomegaly EXTREMITIES: No edema of feet. - Labs CBC & Chem 7: 03/04/21 05:58 03/05/21 05:15 Labs: Abnormal Lab Results - Last 24 Hours (Table) 03/03/21 03/03/21 03/03/21 Range/Units 12:30 12:30 14:46 Plt Count 140 L (150-450) k/uL Lymphocytes # 0.6 L (1.0-4.8) k/uL Sodium 132 L (137-145) mmol/L Glucose 112 H (74-99) mg/dL C-Reactive Protein 2.5 H (<1.0) mg/dL Total Protein (6.3-8.2) g/dL Albumin (3.5-5.0) g/dL Ur Specific [place] >1.050 H (1.001-1.035) Urine Protein Trace H (Negative) Urine Ketones Trace H (Negative) Urine Blood Trace H (Negative) Urine Mucus Rare H (None) /hpf 03/04/21 03/04/21 Range/Units 05:58 05:58 Plt Count 134 L (150-450) k/uL Lymphocytes # 0.8 L (1.0-4.8) k/uL Sodium 129 L (137-145) mmol/L Glucose 120 H (74-99) mg/dL C-Reactive Protein 5.2 H (<1.0) mg/dL Total Protein 5.8 L (6.3-8.2) g/dL Albumin 3.3 L (3.5-5.0) g/dL Ur Specific [place] (1.001-1.035) Urine Protein (Negative) Urine Ketones (Negative) Urine Blood (Negative) Urine Mucus (None) /hpf Microbiology - Last 24 Hours (Table) 03/03/21 12:10 Blood Culture Gram Stain - Preliminary Blood 03/03/21 12:10 Blood Culture - Final Blood 03/03/21 13:05 Gram Stain - Preliminary Other - Other Wound Culture - Preliminary Assessment and Plan Assessment: 1patient with her right-sided facial herpes zoster for the patient to continue with acyclovir while watching his kidney first closely. 2patient with gram- positive bacteremia vancomycin has been added while waiting for the culture finalized blood culture will be repeated document clearance of bacteremia Time with Patient: Less than 30
--- NOTE | 2021-03-05 23:20 | P.PN ---
Subjective Progress Note Date: 03/05/21 Principal diagnosis: Right-sided facial cellulitis/herpes zoster Patient is 85-year-old male presented to hospital right-sided facial swelling and redness in this patient diagnosed with right-sided herpes zoster and conjunctivitis. On today's evaluation that is 03/05/2021 the patient Is afebrile, patient denies any facial swelling redness has decreased intensity, is complaining of some dull aching pain to the right side of the face no drainage no nausea vomiting or diarrhea Objective - Vital Signs Vital signs: Vital Signs Temp 98.0 F 03/05/21 20:46 Pulse 61 03/05/21 20:46 Resp 18 03/05/21 20:46 BP 188/90 03/05/21 20:46 Pulse Ox 94 L 03/05/21 20:46 Intake & Output 03/05/21 03/05/21 03/06/21 06:59 18:59 06:59 Output Total 1225 Balance -1225 Output: Urine 1225 Uretheral ([place]) 525 Other: Voiding Method Toilet Toilet Urinal Urinal # Voids 2 - Exam GENERAL DESCRIPTION: Middle-aged male lying in bed, no distress. No tachypnea or accessory muscle of respiration use. HEENT: Right-sided facial swelling redness and vesicular rash LUNGS: Unlabored breathing. Clear to auscultation anteriorly. No wheeze or crackle. HEART: S1, S2, regular rate and rhythm. No loud murmur ABDOMEN: Soft, no tenderness , guarding or rigidity, no organomegaly EXTREMITIES: No edema of feet. - Labs CBC & Chem 7: 03/04/21 05:58 03/05/21 05:15 Labs: Microbiology - Last 24 Hours (Table) 03/03/21 12:36 Blood Culture Gram Stain - Preliminary Blood 03/03/21 12:36 Blood Culture - Final Blood 03/03/21 13:05 Gram Stain - Final Other - Other Wound Culture - Final Staphylococcus aureus 03/03/21 12:10 Blood Culture Gram Stain - Preliminary Blood Blood Culture - Preliminary Staphylococcus epidermidis Assessment and Plan Assessment: 1patient with her right-sided facial herpes zoster for the patient to continue with acyclovir while watching his kidney first closely. 2patient with gram-positive bacteremia Which has been finalized as staph epi likely skin contaminant vancomycin discontinued. 3patient cellulitis local culture positive for MSSA patient is covered with cefazolin Time with Patient: Less than 30
[2021-03-06] MEDS: OFLOXACIN 0.3% OPHTH DROPS 5 ML BOTTLE RIGHT EYE SCH ×6 (00:07→21:17)
[2021-03-06] MEDS: SODIUM CHLORIDE 0.9% IV SCH ×3 (01:30→16:43)
[2021-03-06] MEDS: ACYCLOVIR SODIUM IV SCH ×3 (01:30→16:43)
[2021-03-06] MEDS: CIPROFLOXACIN 0.3% OPHTH SOLN 5 ML BTL RIGHT EYE SCH ×3 (05:27→21:17)
[2021-03-06] MEDS: hydrALAZINE HCL 20 MG/ML 1 ML VIAL IVP PRN (05:40)
[2021-03-06] MEDS: LACTULOSE 20 GM/30 ML CUP PO SCH ×2 (07:41→21:17)
[2021-03-06] MEDS: traMADol 50 MG TAB PO SCH ×3 (07:41→21:17)
[2021-03-06] MEDS: FAMOTIDINE 20 MG TAB PO SCH (07:41)
[2021-03-06] MEDS: ENOXAPARIN 40 MG/0.4 ML SYRINGE SQ SCH (07:41)
[2021-03-06] MEDS: METOPROLOL TARTRATE 25 MG TAB PO SCH ×2 (07:42→21:17)
[2021-03-06] MEDS: PANTOPRAZOLE 40 MG TABLET PO SCH (07:42)
[2021-03-06] MEDS: ASPIRIN 81 MG PO SCH (07:42)
[2021-03-06] MEDS: LORATADINE 10 MG TAB PO SCH (07:42)
[2021-03-06] MEDS: lisinopriL 10 MG TAB PO SCH (07:42)
[2021-03-06] MEDS: SPIRONOLACTONE 25 MG TAB PO SCH (07:42)
[2021-03-06] MEDS: ATORVASTATIN 80 MG TAB PO SCH (07:42)
--- NOTE | 2021-03-06 08:15 | P.PN ---
Subjective Progress Note Date: 03/04/21 HISTORY OF PRESENT ILLNESS: This is an 85-year-old male with a previous medical history signifi cant for hypertension and hypertensive cardio vascular disease, hyperlipidemia, paroxysmal atrial fibrillation, coronary artery disease with ischemic cardiomyopathy, enlarged prostate, history of AICD, patient presented to the emergency department at [facility] yesterday with increased right sided facial pain that was started on past Wednesday with increased burning sensation associated with increased blisters to the right face as well as the right eye in the rightpatient was not able to tolerate the pain his son brought him to the emergency department for evaluation and patient was found to have a significant herpes zoster infection associated with cellulitis to the right face, patient was started on Valtrex 1 g orally 3 times every day, he was placed also on IV antibiotic in the form of vancomycin and ceftriaxone, and he was admitted to the hospital for evaluation by infectious disease, ophthalmology examination was obtained from Dr. Claire 03/04: Patient is seen today on the [facility] floor. He states facial pain is a little bit better today. 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 He is continued on IV acyclovir. Patient is trying to find hi s hearing aids and 1 May have gone missing, nursing staff updated. Consult is also in place with Dr. Weber. He has been afebrile, heart rate 81, blood pressure 160/99, pulse ox 93% on 2 L nasal cannula. Repeat blood work reveals platelet count of 134. Sodium 129, blood sugar 120. Troponins repeat came back negative. REVIEW OF SYSTEMS: Constitutional: No documented fever, no chills, no night sweats. No weight change. Positive for weakness, fatigue no lethargy. No daytime sleepiness. HEENT: Positive for headache. Positive blurred vision or double vision, no loss of vision. Positive for loss of Hearing, no ringing in the ears, no dizziness. Positive for nasal crust or congestion. No epistaxis. No sore throat. Lungs: No shortness of breath, no cough, no sputum production. No wheezing. Reports dyspnea with activity. Cardiovascular: No chest pain, no lower extremity edema. No palpitations. No paroxysmal nocturnal dyspnea. No orthopnea. No lightheadedness or dizziness. No syncopal episodes. Abdominal: Reports abdominal pain. No nausea, vomiting. No diarrhea. positi ve for constipation. No bloody or tarry stools reports loss of appetite. Genitourinary: No dysuria, increased frequency, urgency. No urinary retention. Musculoskeletal: No myalgias. Positive for muscle weakness, no gait dysfunction, no frequent falls. No back pain. No neck pain. Integumentary: There is vesicular lesion on an erythematous base with significant crusting to the nose and nasolabial area along with the right cheek and right eye, with purulent drainage out of the right lower eyelid. Neurologic: No aphasia. No facial droop. No change in mentation. No head injury. No headache. No paralysis. No paresthesia. Psychiatric: No depression. No anxiety. No mood swings. Endocrine: No abnormal blood sugars. No weight change. PHYSICAL EXAMINATION: General: this is an 82-year-old male who is sitting up in bed in no distress HEENT: Head is atraumatic, normocephalic, pupils were equal round reactive to light and recommendation, extraocular muscle movement were intact, sclera nonicteric, conjunctivae were pale, mucous membranes of the mouth are somewhat dry. Neck: Supple, no JVP, normal carotid upstroke bilaterally, no lymphadenopathy. Chest: Decreased breath sounds at the bases, few rhonchi, no extremity wheezes, no chest wall tenderness, no intercostal retractions. Heart: First heart sound is normal, second heart sound is normal there is systolic ejection murmur 2/6 located in the left sternal border, there is AICD in the left upper precordium. Abdomen: Soft, nontender, nondistended, positive bowel sounds. there is no hepatosplenomegaly. Extremities: There is no edema no calf tenderness DP +2 bilaterally. Neurologic examination: Patient is awake alert and oriented X 3, cranial nerves II-12 appear grossly intact, muscle power were 5 out of 5 in upper extremities and 5 out of 5 in bilateral lower extremities, deep tendon reflexes normal bilaterally. ASSESSMENT AND PLAN: 1. Right facial herpes zoster with eye involvement. Start the patient on Valtrex 1 g orally 3 times every day, start the patient on Cipro floxacillin 0.3% to be applied 4 times every day, urgent ophthalmology examination and consultation expected today, monitor the patient very closely, start the patient on tramadol 50 mg orally 2 times every day for pain control. Consult with Dr. Gus appreciated and changed to IV acyclovir. 2. Right facial cellulitis likely Staphylococcus aureus and top of the herpes zoster area. Continue vancomycin as well as ceftriaxone, infectious disease consultation, culture the wound, culture the blood, follow-up with the patient. 3. Hypertension and hypertensive cardio vascular disease. Continue patient on lisinopril 5 mg orally once every day as well as metoprolol 25 mg orally once every day. 4. Hyperlipidemia. Continue patient on atorvastatin 80 mg orally once every day. 5. CAD post-PCI with ischemic cardiopathy. Continue aspirin 81 mg once every day, metoprolol 25 minute gram orally once every day, atorvastatin 80 mg orally once every day, hold off Lasix for now. 6. ALLERGIC rhinitis. Continue patient on loratadine 10 mg orally once every day. 7. GERD. Continue omeprazole 40 mg orally once every day as well as famotidine 40 g at bedtime. 8. Constipation. Start the patient on lactulose 20 g orally twice every day, continue Senokot S2 tablet orally bedtime may use MiraLAX 17 g in 8 ounces water as needed. 9. Enlarged prostate. Continue tamsulosin 0.4 g orally once every day. 10. DVT prophylaxis. Continue patient on Lovenox 40 mg subcutaneously every 24 hours. 11. GI prophylaxis. Continue PPI. 12. Admit to inpatient. Estimate a length of stay 2 midnights. 13. Full code. 14. Physical therapy and occupational therapy evaluation. 15. funeral workers consultation for discharge planning. DISCHARGE PLAN TBD Impression and plan of care have been directed as dictated by the signing physician. Robyn Lopez nurse practitioner acting as scribe for signing physician. Objective - Vital Signs Vital signs: Vital Signs Temp 98.7 F 03/04/21 06:02 Pulse 81 03/04/21 06:02 Resp 18 03/04/21 06:02 BP 160/99 03/04/21 06:02 Pulse Ox 93 L 03/04/21 06:02 Intake & Output 03/03/21 03/04/21 03/04/21 18:59 06:59 18:59 Output Total 100 Balance -100 Weight 88.451 kg Output: Urine 100 Other: Voiding Method Urinal - Labs CBC & Chem 7: 03/04/21 05:58 03/05/21 05:15 Labs: Abnormal Lab Results - Last 24 Hours (Table) 03/03/21 03/03/21 03/03/21 Range/Units 12:30 12:30 14:46 Plt Count 140 L (150-450) k/uL Lymphocytes # 0.6 L (1.0-4.8) k/uL Sodium 132 L (137-145) mmol/L Glucose 112 H (74-99) mg/dL C-Reactive Protein 2.5 H (<1.0) mg/dL Total Protein (6.3-8.2) g/dL Albumin (3.5-5.0) g/dL Ur Specific [place] >1.050 H (1.001-1.035) Urine Protein Trace H (Negative) Urine Ketones Trace H (Negative) Urine Blood Trace H (Negative) Urine Mucus Rare H (None) /hpf 03/04/21 03/04/21 Range/Units 05:58 05:58 Plt Count 134 L (150-450) k/uL Lymphocytes # 0.8 L (1.0-4.8) k/uL Sodium 129 L (137-145) mmol/L Glucose 120 H (74-99) mg/dL C-Reactive Protein 5.2 H (<1.0) mg/dL Total Protein 5.8 L (6.3-8.2) g/dL Albumin 3.3 L (3.5-5.0) g/dL Ur Specific [place] (1.001-1.035) Urine Protein (Negative) Urine Ketones (Negative) Urine Blood (Negative) Urine Mucus (None) /hpf Microbiology - Last 24 Hours (Table) 03/03/21 13:05 Gram Stain - Preliminary Other - Other Wound Culture - Preliminary
--- NOTE | 2021-03-06 08:17 | P.PN ---
Subjective Progress Note Date: 03/05/21 HISTORY OF PRESENT ILLNESS: This is an 85-year-old male with a previous medical history signifi cant for hypertension and hypertensive cardio vascular disease, hyperlipidemia, paroxysmal atrial fibrillation, coronary artery disease with ischemic cardiomyopathy, enlarged prostate, history of AICD, patient presented to the emergency department at [facility] yesterday with increased right sided facial pain that was started on past Wednesday with increased burning sensation associated with increased blisters to the right face as well as the right eye in the rightpatient was not able to tolerate the pain his son brought him to the emergency department for evaluation and patient was found to have a significant herpes zoster infection associated with cellulitis to the right face, patient was started on Valtrex 1 g orally 3 times every day, he was placed also on IV antibiotic in the form of vancomycin and ceftriaxone, and he was admitted to the hospital for evaluation by infectious disease, ophthalmology examination was obtained from Dr. Claire 03/04: Patient is seen today on the [facility] floor. He states facial pain is a little bit better today. There is a consult and for service desk analyst regarding eye involvement. He is continued on IV acyclovir. Patient is trying to find hi s hearing aids and 1 May have gone missing, nursing staff updated. Consult is also in place with Dr. Weber. He has been afebrile, heart rate 81, blood pressure 160/99, pulse ox 93% on 2 L nasal cannula. Repeat blood work reveals platelet count of 134. Sodium 129, blood sugar 120. Troponins repeat came back negative. 03/05: has been seen by ophthalmology with recommendations to continue Cipro, follow up in 3-4 days to recheck right now for any vasculitis and to recheck any increase in intraocular pressure due to shingles. Patient can follow-up with either Dr. Avelar or Dr. Baker. Patient has also been seen by Dr. Tenzin goodman with recommendations to switch Valtrex to IV acyclovir, discontinue vancomycin and Rocephin. He has been afebrile, heart rate 71, blood pressure 177/89, pulse ox 91% on room air. Repeat creatinine 0.74. Repeat blood work ordered for tomorrow to follow up on sodium level. Blood culture from March 03 is positive for Staphylococcus epidermidis a contamination. Wound culture is in progress. Discharge plan is to return to [facility] without home care. REVIEW OF SYSTEMS: Constitutional: No documented fever, no chills, no night sweats. No weight change. Positive for weakness, fatigue no lethargy. No daytime sleepiness. HEENT: Positive for headache. Positive blurred vision or double vision, no loss of vision. Positive for loss of Hearing, no ringing in the ears, no dizziness. Positive for nasal crust or congestion. No epistaxis. No sore throat. Lungs: No shortness of breath, no cough, no sputum production. No wheezing. Reports dyspnea with activity. Cardiovascular: No chest pain, no lower extremity edema. No palpitations. No paroxysmal nocturnal dyspnea. No orthopnea. No lightheadedness or dizziness. No syncopal episodes. Abdominal: Reports abdominal pain. No nausea, vomiting. No diarrhea. positive for constipation. No bloody or tarry stools reports loss of appetite. Genitourinary: No dysuria, increased frequency, urgency. No urinary retention. Musculoskeletal: No myalgias. Positive for muscle weakness, no gait dysfunction, no frequent falls. No back pain. No neck pain. Integumentary: There is vesicular lesion on an erythematous base with significant crusting to the nose and nasolabial area along with the right cheek and right eye, with purulent drainage out of the right lower eyelid. Neurologic: No aphasia. No facial droop. No change in mentation. No head injury. No headache. No paralysis. No paresthesia. Psychiatric: No depression. No anxiety. No mood swings. Endocrine: No abnormal blood sugars. No weight change. PHYSICAL EXAMINATION: General: this is an 82-year-old male who is sitting up in bed in no distress HEENT: Head is atraumatic, normocephalic, pupils were equal round reactive to light and recommendation, extraocular muscle movement were intact, sclera nonict danny, conjunctivae were pale, mucous membranes of the mouth are somewhat dry. Neck: Supple, no JVP, normal carotid upstroke bilaterally, no lymphadenopathy. Chest: Decreased breath sounds at the bases, few rhonchi, no extremity wheezes, no chest wall tenderness, no intercostal retractions. Heart: First heart sound is normal, second heart sound is normal there is systolic ejection murmur 2/6 located in the left sternal border, there is AICD in the left upper precordium. Abdomen: Soft, nontender, nondistended, positive bowel sounds. there is no hepatosplenomegaly. Extremities: There is no edema no calf tenderness DP +2 bilaterally. Neurologic examination: Patient is awake alert and oriented X 3, cranial nerves II-12 appear grossly intact, muscle power were 5 out of 5 in upper extremities and 5 out of 5 in bilateral lower extremities, deep tendon reflexes normal bilaterally. ASSESSMENT AND PLAN: 1. Right facial herpes zoster with eye involvement. Start the patient on Valtrex 1 g orally 3 times every day, start the patient on Cipro floxacillin 0.3% to be applied 4 times every day, urgent ophthalmology examination and consultation expected today, monitor the patient very closely, start the patient on tramadol 50 mg orally 2 times every day for pain control. Consult with Dr. Weber appreciated and valtrex changed to IV acyclovir. 2. Right facial cellulitis likely Staphylococcus aureus and top of the herpes zoster area. Vancomycin and ceftriaxone were discontinued and switched to by Dr. Weber, culture the wound, culture the blood, follow-up with the patient. 3. Hypertension and hypertensive cardio vascular disease. Continue patient on lisinopril 5 mg orally once every day as well as metoprolol 25 mg orally once every day. 4. Hyperlipidemia. Continue patient on atorvastatin 80 mg orally once every day. 5. CAD post-PCI with ischemic cardiopathy. Continue aspirin 81 mg once every day, metoprolol 25 minute gram orally once every day, atorvastatin 80 mg orally once every day, hold off Lasix for now. 6. ALLERGIC rhinitis. Continue patient on loratadine 10 mg orally once every day. 7. GERD. Continue omeprazole 40 mg orally once every day as well as famotidine 40 g at bedtime. 8. Constipation. Start the patient on lactulose 20 g orally twice every day, continue Senokot S2 tablet orally bedtime may use MiraLAX 17 g in 8 ounces water as needed. 9. Enlarged prostate. Continue tamsulosin 0.4 g orally once every day. 10. DVT prophylaxis. Continue patient on Lovenox 40 mg subcutaneously every 24 hours. 11. GI prophylaxis. Continue PPI. 12. Admit to inpatient. Estimate a length of stay 2 midnights. 13. Full code. 14. Physical therapy and occupational therapy evaluation. 15. power lineworker consultation for discharge planning. DISCHARGE PLAN Return to [facility], PT and OT consults. Impression and plan of care have been directed as dictated by the signing physician. Robyn Lopez nurse practitioner acting as scribe for signing physician. Objective - Vital Signs Vital signs: Vital Signs Temp 98.8 F 03/05/21 08:00 Pulse 71 03/05/21 08:00 Resp 18 03/05/21 08:00 BP 177/89 03/05/21 08:00 Pulse Ox 91 L 03/05/21 08:00 Intake & Output 03/04/21 03/05/21 03/05/21 18:59 06:59 18:59 Other: Voiding Method Toilet Toilet Urinal Urinal # Voids 1 - Labs CBC & Chem 7: 03/04/21 05:58 03/05/21 05:15 Labs: Microbiology - Last 24 Hours (Table) 03/03/21 12:10 Blood Culture Gram Stain - Preliminary Blood Blood Culture - Preliminary Staphylococcus epidermidis 03/03/21 12:36 Blood Culture - Preliminary Blood No Growth after 24 hours 03/03/21 12:10 Blood Culture - Final Blood
[2021-03-06] MEDS ORDERED: lisinopriL 10 MG TAB PO STA (09:10)
[2021-03-06] MEDS ORDERED: bisacodyL 10 MG SUPP RECTAL STA (09:13)
--- NOTE | 2021-03-06 09:16 | P.PN ---
Subjective Progress Note Date: 03/06/21 HISTORY OF PRESENT ILLNESS: This is an 85-year-old male with a previous medical history signifi cant for hypertension and hypertensive cardio vascular disease, hyperlipidemia, paroxysmal atrial fibrillation, coronary artery disease with ischemic cardiomyopathy, enlarged prostate, history of AICD, patient presented to the emergency department at [facility] yesterday with increased right sided facial pain that was started on past Wednesday with increased burning sensation associated with increased blisters to the right face as well as the right eye in the rightpatient was not able to tolerate the pain his son brought him to the emergency department for evaluation and patient was found to have a significant herpes zoster infection associated with cellulitis to the right face, patient was started on Valtrex 1 g orally 3 times every day, he was placed also on IV antibiotic in the form of vancomycin and ceftriaxone, and he was admitted to the hospital for evaluation by infectious disease, ophthalmology examination was obtained from Dr. Claire 03/04: Patient is seen today on the [facility] floor. He states facial pain is a little bit better today. There is a consult and for burnisher regarding eye involvement. He is continued on IV acyclovir. Patient is trying to find hi s hearing aids and 1 May have gone missing, nursing staff updated. Consult is also in place with Dr. Weber. He has been afebrile, heart rate 81, blood pressure 160/99, pulse ox 93% on 2 L nasal cannula. Repeat blood work reveals platelet count of 134. Sodium 129, blood sugar 120. Troponins repeat came back negative. 03/05: has been seen by ophthalmology with recommendations to continue Cipro, follow up in 3-4 days to recheck right now for any vasculitis and to recheck any increase in intraocular pressure due to shingles. Patient can follow-up with either Dr. Avelar or Dr. Baker. Patient has also been seen by Dr. Tenzin goodman with recommendations to switch Valtrex to IV acyclovir, discontinue vancomycin and Rocephin. He has been afebrile, heart rate 71, blood pressure 177/89, pulse ox 91% on room air. Repeat creatinine 0.74. Repeat blood work ordered for tomorrow to follow up on sodium level. Blood culture from March 03 is positive for Staphylococcus epidermidis a contamination. Wound culture is in progress. Discharge plan is to return to [facility] without home care. 03/06: She continues to have facial swelling and erythema. He states he has not really eaten much since the last week. He does have some nausea. He is complaining of constipation for which a suppository will be ordered and if not affected an enema. He complains of loss of vision secondary to herpes zoster and also has underlying macular degeneration. Blood pressure medications will be adjusted.. He continues to have pain to the right side of his face. No open wounds or drainage. Dr. Weber is recommended continuing acyclovir, monitor kidney function. He is also on Kefzol for MSSA wound culture. Patient has been afebrile, heart rate 63, blood pressure 184/92. Blood cultures positive for Staphylococcus epidermidis a contaminant. REVIEW OF SYSTEMS: Constitutional: No documented fever, no chills, no night sweats. No weight change. Positive for weakness, fatigue no lethargy. No daytime sleepiness. HEENT: Positive for headache. Positive blurred vision or double vision, reports loss of vision. Positive for loss of Hearing is chronic, no ringing in the ears, no dizziness. Positive for nasal crust or congestion. No epistaxis. No sore throat. Lungs: No shortness of breath, no cough, no sputum production. No wheezing. Reports dyspnea with activity. Cardiovascular: No chest pain, no lower extremity edema. No palpitations. No paroxysmal nocturnal dyspnea. No orthopnea. No lightheadedness or dizziness. No syncopal episodes. Abdominal: Reports abdominal pain. reports nausea, no vomiting. No diarrhea. positive for constipation. No bloody or tarry stools. reports loss of appetite. Genitourinary: No dysuria, increased frequency, urgency. No urinary retention. Musculoskeletal: No myalgias. Positive for muscle weakness, no gait dysfunction, no frequent falls. No back pain. No neck pain. Integumentary: There is vesicular lesion on an erythematous base with significant crusting to the nose and nasolabial area along with the right cheek and right eye, with purulent drainage out of the right lower eyelid. Neurologic: No aphasia. No facial droop. No change in mentation. No head injury. No headache. No paralysis. No paresthesia. Psychiatric: No depression. No anxiety. No mood swings. Endocrine: No abnormal blood sugars. No weight change. PHYSICAL EXAMINATION: General: this is an 82-year-old male who is sitting up in bed in no distress HEENT: Head is atraumatic, normocephalic, pupils were equal round reactive to light and recommendation, extraocular muscle movement were intact, sclera nonicteric, conjunctivae were pale, mucous membranes of the mouth are somewhat dry. Neck: Supple, no JVP, normal carotid upstroke bilaterally, no lymphadenopathy. Chest: Decreased breath sounds at the bases, few rhonchi, no extremity wheezes, no chest wall tenderness, no intercostal retractions. Heart: First heart sound is normal, second heart sound is normal there is systolic ejection murmur 2/6 located in the left sternal border, there is AICD in the left upper precordium. Abdomen: Soft, nontender, nondistended, positive bowel sounds. there is no hepatosplenomegaly. Extremities: There is no edema no calf tenderness DP +2 bilaterally. Neurologic examination: Patient is awake alert and oriented X 3, cranial nerves II-12 appear grossly intact, muscle power were 5 out of 5 in upper extremities and 5 out of 5 in bilateral lower extremities, deep tendon reflexes normal bilaterally. ASSESSMENT AND PLAN: 1. Right facial herpes zoster with eye involvement. Continue patient on Cipro floxacillin 0.3% to be applied 4 times every day, urgent ophthalmology examination and consultation appreciated, plan for outpatient follow-up, monitor the patient very closely, and 10 units the patient on tramadol 50 mg orally 2 times every day for pain control. Consult with Dr. Weber appreciated and valtrex changed to IV acyclovir. 2. Right facial cellulitis likely Staphylococcus aureus and top of the herpes zoster area. Vancomycin and ceftriaxone were discontinued and switched to by Dr. Weber, culture the wound, culture the blood, follow-up with the patient. 3. Hypertension and hypertensive cardio vascular disease. Continue patient on lisinopril 5 mg orally once every day as well as metoprolol 25 mg orally once every day. 4. Hyperlipidemia. Continue patient on atorvastatin 80 mg orally once every day. 5. CAD post-PCI with ischemic cardiopathy. Continue aspirin 81 mg once every day, metoprolol 25 minute gram orally once every day, atorvastatin 80 mg orally once every day, hold off Lasix for now. 6. ALLERGIC rhinitis. Continue patient on loratadine 10 mg orally once every day. 7. GERD. Continue omeprazole 40 mg orally once every day as well as famotidine 40 g at bedtime. 8. Constipation. Start the patient on lactulose 20 g orally twice every day, continue Senokot S2 tablet orally bedtime may use MiraLAX 17 g in 8 ounces water as needed. 9. Enlarged prostate. Continue tamsulosin 0.4 g orally once every day. 10. DVT prophylaxis. Continue patient on Lovenox 40 mg subcutaneously every 24 hours. 11. GI prophylaxis. Continue PPI. 12. Constipation. Continue lactulose 20 mg twice daily. Dulcolax suppository ordered for today and possible need for fleets enema. 13. Full code. 14. Physical therapy and occupational therapy evaluation. 15. pattern layout worker consultation for discharge planning. DISCHARGE PLAN Return to [facility], PT and OT consults. Impression and plan of care have been directed as dictated by the signing physician. Robyn Lopez nurse practitioner acting as scribe for signing physician. Objective - Vital Signs Vital signs: Vital Signs Temp 98.3 F 03/06/21 05:30 Pulse 63 03/06/21 05:30 Resp 20 03/06/21 05:30 BP 184/92 03/06/21 05:30 Pulse Ox 92 L 03/06/21 05:30 Intake & Output 03/05/21 03/06/21 03/06/21 18:59 06:59 18:59 Intake Total 100 Output Total 1225 500 Balance -1225 -400 Intake: Intake, IV Titration 100 Amount ceFAZolin 2 gm In Sodium 100 Chloride 0.9% 50 ml @ 100 mls/hr IVPB Q8HR [facility] Rx# :[id number] Output: Urine 1225 500 Uretheral ([place]) 525 300 Other: Voiding Method Toilet Toilet Urinal Urinal # Voids 2 - Labs CBC & Chem 7: 03/04/21 05:58 03/05/21 05:15 Labs: Microbiology - Last 24 Hours (Table) 03/03/21 12:36 Blood Culture Gram Stain - Preliminary Blood 03/03/21 12:36 Blood Culture - Final Blood 03/03/21 13:05 Gram Stain - Final Other - Other Wound Culture - Final Staphylococcus aureus 03/03/21 12:10 Blood Culture Gram Stain - Preliminary Blood Blood Culture - Preliminary Staphylococcus epidermidis
[2021-03-06] MEDS ORDERED: NA PHOS,M-B/NA PHOS,DI-BA 133 ML ENEMA RECTAL ONE (09:30)
[2021-03-06 10:27] LABS: Anion Gap 11.4 mmol/L (10.00-18.00); Blood Urea Nitrogen 9.1 mg/dL (9.0-27.0); C Reactive Protein 3.9 mg/dL (0.00-0.80); Calcium 8.7 mg/dL (8.7-10.3); Carbon Dioxide 23.6 mmol/L (20.0-27.5); Non-African American GFR(CKD) 85.5 (60.0-200.0); Potassium 4.2 mmol/L (3.5-5.5)
[2021-03-06] MEDS: ONDANSETRON 4 MG/2 ML VIAL IVP PRN (12:53)
[2021-03-06] MEDS: lisinopriL 20 MG TAB PO SCH (21:17)
[2021-03-07] MEDS: ACYCLOVIR SODIUM IV SCH ×4 (00:16→23:35)
[2021-03-07] MEDS: SODIUM CHLORIDE 0.9% IV SCH ×4 (00:16→23:35)
[2021-03-07] MEDS: OFLOXACIN 0.3% OPHTH DROPS 5 ML BOTTLE RIGHT EYE SCH ×7 (00:17→23:35)
[2021-03-07] MEDS: CIPROFLOXACIN 0.3% OPHTH SOLN 5 ML BTL RIGHT EYE SCH ×3 (05:17→21:58)
[2021-03-07] MEDS: LORATADINE 10 MG TAB PO SCH (09:46)
[2021-03-07] MEDS: traMADol 50 MG TAB PO SCH ×3 (09:46→21:59)
[2021-03-07] MEDS: ASPIRIN 81 MG PO SCH (09:46)
[2021-03-07] MEDS: lisinopriL 20 MG TAB PO SCH ×2 (09:46→21:58)
[2021-03-07] MEDS: ATORVASTATIN 80 MG TAB PO SCH (09:46)
[2021-03-07] MEDS: PANTOPRAZOLE 40 MG TABLET PO SCH (09:46)
[2021-03-07] MEDS: SPIRONOLACTONE 25 MG TAB PO SCH (09:47)
[2021-03-07] MEDS: FAMOTIDINE 20 MG TAB PO SCH (09:47)
[2021-03-07] MEDS: ENOXAPARIN 40 MG/0.4 ML SYRINGE SQ SCH (09:48)
[2021-03-07] MEDS: LACTULOSE 20 GM/30 ML CUP PO SCH ×2 (09:53→21:58)
[2021-03-07] MEDS: METOPROLOL TARTRATE 50 MG TAB PO SCH ×2 (09:53→21:58)
--- NOTE | 2021-03-07 10:24 | P.DS ---
Providers Date of admission: 03/03/21 14:55 Expected date of discharge: 03/10/21 Attending physician: Oskar Rowland Consults: 03/03/21 14:29 Consult Physician Routine Consulting Provider: Emmett Weber Consult Reason/Comments: Facial cellulitis Do you want consulting provider notified?: Yes 03/03/21 19:37 Consult Physician Routine Consulting Provider: Terri Claire Consult Reason/Comments: Right face zoster with eye involvement Do you want consulting provider notified?: Yes Primary care physician: Oskar Rowland Hospital Course: HISTORY OF PRESENT ILLNESS: HISTORY OF PRESENT ILLNESS: This is an 85-year-old male with a previous medical history significant for hypertension and hypertensive cardio vascular disease, hyperlipidemia, paroxysmal atrial fibrillation, coronary artery disease with ischemic cardiomyopathy, enlarged prostate, history of AICD, patient presented to the emergency department at [facility] yesterday with increased right sided facial pain that was started on past Wednesday with increased burning sensation associated with increased blisters to the right face as well as the right eye in the rightpatient was not able to tolerate the pain his son brought him to the emergency department for evaluation and patient was found to have a significant herpes zoster infection associated with cellulitis to the right face, patient was started on Valtrex 1 g orally 3 times every day, he was placed also on IV antibiotic in the form of vancomycin and ceftriaxone, and he was admitted to the hospital for evaluation by infectious disease, ophthalmology examination was obtained from Dr. Claire 03/04: Patient is seen today on the Med[facility] floor. He states facial pain is a little bit better today. There is a consult and for health information administrator regarding eye involvement. He is continued on IV acyclovir. Patient is trying to find his hearing aids and 1 May have gone missing, nursing staff updated. Consult is also in place with Dr. Weber. He has been afebrile, heart rate 81, blood pressure 160/99, pulse ox 93% on 2 L nasal cannula. Repeat blood work reveals platelet count of 134. Sodium 129, blood sugar 120. Troponins repeat came back negative. 03/05: Patient has been seen by ophthalmology with recommendations to continue Cipro, follow up in 3-4 days to recheck right now for any vasculitis and to recheck any increase in intraocular pressure due to shingles. Patient can follow-up with either Dr. Avelar or Dr. Baker. Patient has also been seen by Dr. Weber with recommendations to switch Valtrex to IV acyclovir, discontinue va ncomycin and Rocephin. He has been afebrile, heart rate 71, blood pressure 177/89, pulse ox 91% on room air. Repeat creatinine 0.74. Repeat blood work ordered for tomorrow to follow up on sodium level. Blood culture from March 03 is positive for Staphylococcus epidermidis a contamination. Wound culture is in progress. Discharge plan is to return to [facility] without home care. 03/06: Patient continues to have facial swelling and erythema. He states he has not really eaten much since the last week. He does have some nausea. He is complaining of constipation for which a suppository will be ordered and if not affected an enema. He complains of loss of vision secondary to herpes zoster and also has underlying macular degeneration. Blood pressure medications will be adjusted.. He continues to have pain to the right side of his face. No open wounds or drainage. Dr. Weber is recommended continuing acyclovir, monitor kidney function. He is also on Kefzol for MSSA wound culture. Patient has been afebrile, heart rate 63, blood pressure 184/92. Blood cultures positive for Staphylococcus epidermidis a contaminant. 03/07: Patient thinks that his vision is a little bit better today but he has noted to have significant difficulty with ADLs including just setting up his breakfast. We will check if ophthalmology will be checking him again today. Wound culture finalized with MSSA. Blood cultures contaminant. Repeat blood culture from 03/06 is showing no growth at 24 hours. Blood work from 03/06: Sodium 132, creatinine 0.7, C-reactive protein 3.9. Patient is followed by Dr. Weber with recommendations and continued on Kefzol and acyclovir. Blood Pressure remains elevated and Lopressor increased to 50 mg twice daily. 03/08: Patient sitting up in bed continues to have significant pain on the right side of the face, he is getting his tramadol, he denies any chest pain or any shortness breath, he did not have a bowel movement today he did have a large 1 yesterday, he needed a lot of help with activities of daily living, he is patient has been on cyclic severe as well as Kefzol and IV we'll continue with that over the weekend and evaluated the patient again 03/09: Patient is doing a lot better today his sitting up in a chair, he denies any chest pain or any shortness breath, his vision is a bit better in the right eye, he would be switched to oral Keflex 500 mg orally 3 times every day, we will switch his lisinopril to losartan 100 mg orally once every day because of the blood pressure still high, and we will send the patient home in the next 24 hours. 03/10: Patient remains afebrile, heart rate 50s to 90s, blood pressure 168/95, pulse ox 96% on room air. Overall blood pressure readings are improved with medication changes. Dr. Weber has recommended Keflex for 7 days at discharge and continue Valtrex to complete a 7 day course. His vision changes seem to be stable. Lesions on his face are dry, decreased erythema and starting to heal. Patient states that his son will be staying with him at discharge. Patient will be discharged home today in stable condition. DISCHARGE DIAGNOSES: 1. Right facial herpes zoster with eye involvement. 2. Right facial cellulitis likely Staphylococcus aureus and top of the herpes zoster area. 3. Hypertension and hypertensive cardio vascular disease. 4. Hyperlipidemia. 5. CAD post-PCI with ischemic cardiopathy. 6. ALLERGIC rhinitis. 7. GERD. 8. Constipation. 9. Enlarged prostate. 10. Constipation. DISCHARGE PLAN Return to [facility] Greater than 35 minutes was utilized and coordinating patient's discharge. Impression and plan of care have been directed as dictated by the signing physician. Robyn Lopez nurse practitioner acting as scribe for signing physician. Patient Condition at Discharge: Stable Plan - Discharge Summary New Discharge Prescriptions: New Lactulose [Cephulac] 20 gm PO BID #900 ml Metoprolol Tartrate [Lopressor] 50 mg PO BID #60 tab Losartan [Cozaar] 100 mg PO DAILY #60 tab Cephalexin [Keflex] 500 mg PO TID #21 cap Ciprofloxacin Ophth Soln [Ciloxan 0.3% Ophth Soln] 1 drops RIGHT EYE 0600,1400,2200 #2.5 ml traMADol HCl [Ultram] 50 mg PO TID tab valACYclovir [Valtrex] 1,000 mg PO Q8HR #21 tab Continue Spironolactone [Aldactone] 12.5 mg PO DAILY Aspirin [Adult Low Dose Aspirin EC] 81 mg PO DAILY Nitroglycerin Sl Tabs [Nitrostat] 0.4 mg SL Q5M PRN PRN Reason: Chest Pain Famotidine 40 mg PO DAILY Cetirizine HCl [Zyrtec] 10 mg PO DAILY Omeprazole 40 mg PO DAILY Metoprolol Tartrate [Lopressor] 25 mg PO DAILY Atorvastatin [Lipitor] 80 mg PO DAILY Discontinued Lisinopril [Prinivil] 5 mg PO DAILY Discharge Medication List Spironolactone [Aldactone] 12.5 mg PO DAILY 12/03/16 [History] Aspirin [Adult Low Dose Aspirin EC] 81 mg PO DAILY 11/16/17 [History] Atorvastatin [Lipitor] 80 mg PO DAILY 03/03/21 [History] Cetirizine HCl [Zyrtec] 10 mg PO DAILY 03/03/21 [History] Famotidine 40 mg PO DAILY 03/03/21 [History] Metoprolol Tartrate [Lopressor] 25 mg PO DAILY 03/03/21 [History] Nitroglycerin Sl Tabs [Nitrostat] 0.4 mg SL Q5M PRN 03/03/21 [History] Omeprazole 40 mg PO DAILY 03/03/21 [History] Ciprofloxacin Ophth Soln [Ciloxan 0.3% Ophth Soln] 1 drops RIGHT EYE 0600,1400,2200 #2.5 ml 03/07/21 [Rx] Lactulose [Cephulac] 20 gm PO BID #900 ml 03/07/21 [Rx] Metoprolol Tartrate [Lopressor] 50 mg PO BID #60 tab 03/07/21 [Rx] traMADol HCl [Ultram] 50 mg PO TID tab 03/07/21 [Rx] Cephalexin [Keflex] 500 mg PO TID #21 cap 03/10/21 [Rx] Losartan [Cozaar] 100 mg PO DAILY #60 tab 03/10/21 [Rx] valACYclovir [Valtrex] 1,000 mg PO Q8HR #21 tab 03/10/21 [Rx] Follow up Appointment(s)/Referral(s): Dakotah Avelar MD [STAFF PHYSICIAN] - 3 Days Oskar Rowland MD [Primary Care Provider] - 1 Week Discharge Disposition: HOME SELF-CARE
--- NOTE | 2021-03-07 15:10 | P.PN ---
Subjective Progress Note Date: 03/07/21 HISTORY OF PRESENT ILLNESS: This is an 85-year-old male with a previous medical history signifi cant for hypertension and hypertensive cardio vascular disease, hyperlipidemia, paroxysmal atrial fibrillation, coronary artery disease with ischemic cardiomyopathy, enlarged prostate, history of AICD, patient presented to the emergency department at [facility] yesterday with increased right sided facial pain that was started on past Wednesday with increased burning sensation associated with increased blisters to the right face as well as the right eye in the rightpatient was not able to tolerate the pain his son brought him to the emergency department for evaluation and patient was found to have a significant herpes zoster infection associated with cellulitis to the right face, patient was started on Valtrex 1 g orally 3 times every day, he was placed also on IV antibiotic in the form of vancomycin and ceftriaxone, and he was admitted to the hospital for evaluation by infectious disease, ophthalmology examination was obtained from Dr. Claire 03/04: Patient is seen today on the [facility] floor. He states facial pain is a little bit better today. There is a consult and for it security architect regarding eye involvement. He is continued on IV acyclovir. Patient is trying to find hi s hearing aids and 1 May have gone missing, nursing staff updated. Consult is also in place with Dr. Weber. He has been afebrile, heart rate 81, blood pressure 160/99, pulse ox 93% on 2 L nasal cannula. Repeat blood work reveals platelet count of 134. Sodium 129, blood sugar 120. Troponins repeat came back negative. 03/05: Patient has been seen by ophthalmology with recommendations to continue Cipro, follow up in 3-4 days to recheck right now for any vasculitis and to recheck any increase in intraocular pressure due to shingles. Patient can follow-up with either Dr. Avelar or Dr. Baker. Patient has also been seen by Dr. Weber with recommendations to switch Valtrex to IV acyclovir, discontinue vancomycin and Rocephin. He has been afebrile, heart rate 71, blood pressure 177/89, pulse ox 91% on room air. Repeat creatinine 0.74. Repeat blood work ordered for tomorrow to follow up on sodium level. Blood culture from March 03 is positive for Staphylococcus epidermidis a contamination. Wound culture is in progress. Discharge plan is to return to [facility] without home care. 03/06: Patient continues to have facial swelling and erythema. He states he has not really eaten much since the last week. He does have some nausea. He is complaining of constipation for which a suppository will be ordered and if not affected an enema. He complains of loss of vision secondary to herpes zoster and also has underlying macular degeneration. Blood pressure medications will be adjusted.. He continues to have pain to the right side of his face. No open wounds or drainage. Dr. Weber is recommended continuing acyclovir, monitor kidney function. He is also on Kefzol for MSSA wound culture. Patient has been afebrile, heart rate 63, blood pressure 184/92. Blood cultures positive for Staphylococcus epidermidis a contaminant. 03/07: Patient thinks that his vision is a little bit better today but he has noted to have significant difficulty with ADLs including just setting up his breakfast. We will check if ophthalmology will be checking him again today. Wound culture finalized with MSSA. Blood cultures contaminant. Repeat blood culture from 03/06 is showing no growth at 24 hours. Blood work from 03/06: Sodium 132, creatinine 0.7, C-reactive protein 3.9. Patient is followed by Dr. Weber with recommendations and continued on Kefzol and acyclovir. Blood Pre ssure remains elevated and Lopressor increased to 50 mg twice daily. REVIEW OF SYSTEMS: Constitutional: No documented fever, no chills, no night sweats. No weight change. Positive for weakness, fatigue no lethargy. No daytime sleepiness. HEENT: Positive for headache. Positive blurred vision or double vision, reports loss of vision in right eye. Positive for loss of Hearing is chronic, no ringing in the ears, no dizziness. Positive for nasal crust or congestion. No epistaxis. No sore throat. Lungs: No shortness of breath, no cough, no sputum production. No wheezing. Reports dyspnea with activity. Cardiovascular: No chest pain, no lower extremity edema. No palpitations. No paroxysmal nocturnal dyspnea. No orthopnea. No lightheadedness or dizziness. No syncopal episodes. Abdominal: Reports abdominal pain. reports nausea, no vomiting. No diarrhea. positive for constipation. No bloody or tarry stools. reports loss of appetite. Genitourinary: No dysuria, increased frequency, urgency. No urinary retention. Musculoskeletal: No myalgias. Positive for muscle weakness, no gait dysfunction, no frequent falls. No back pain. No neck pain. Integumentary: There is vesicular lesion on an erythematous base with significant crusting to the nose and nasolabial area along with the right cheek and right eye, with purulent drainage out of the right lower eyelid. Neurologic: No aphasia. No facial droop. No change in mentation. No head injury. No headache. No paralysis. No paresthesia. Psychiatric: No depression. No anxiety. No mood swings. Endocrine: No abnormal blood sugars. No weight change. PHYSICAL EXAMINATION: General: this is an 82-year-old male who is sitting up in bed in no distress HEENT: Head is atraumatic, normocephalic, pupils were equal round reactive to light and recommendation, extraocular muscle movement were intact, sclera n onicteric, conjunctivae were pale, mucous membranes of the mouth are somewhat dry. Neck: Supple, no JVP, normal carotid upstroke bilaterally, no lymphadenopathy. Chest: Decreased breath sounds at the bases, few rhonchi, no extremity wheezes, no chest wall tenderness, no intercostal retractions. Heart: First heart sound is normal, second heart sound is normal there is systolic ejection murmur 2/6 located in the left sternal border, there is AICD in the left upper precordium. Abdomen: Soft, nontender, nondistended, positive bowel sounds. there is no hepatosplenomegaly. Extremities: There is no edema no calf tenderness DP +2 bilaterally. Neurologic examination: Patient is awake alert and oriented X 3, cranial nerves II-12 appear grossly intact, muscle power were 5 out of 5 in upper extremities and 5 out of 5 in bilateral lower extremities, deep tendon reflexes normal bilaterally. ASSESSMENT AND PLAN: 1. Right facial herpes zoster with eye involvement. Continue patient on Ciprofloxacin 0.3% to be applied 4 times every day, urgent ophthalmology examination and consultation appreciated, plan for outpatient follow-up, monitor the patient very closely, and 10 units the patient on tramadol 50 mg orally 2 times every day for pain control. Consult with Dr. Weber appreciated continue IV acyclovir. 2. Right facial cellulitis MSSA and top of the herpes zoster area. Continue Kefzol 2 g IV piggyback every 8 hours. 3. Hypertension and hypertensive cardio vascular disease. Continue patient on lisinopril increased to 20 mg twice daily and Lopressor increased to 50 mg twice daily. 4. Hyperlipidemia. Continue patient on atorvastatin 80 mg orally once every day. 5. CAD post-PCI with ischemic cardiopathy. Continue aspirin 81 mg once every day, metoprolol 50 mg orally once every day, atorvastatin 80 mg orally once every day, hold off Lasix for now. 6. ALLERGIC rhinitis. Continue patient on loratadine 10 mg orally once every day. 7. GERD. Continue omeprazole 40 mg orally once every day as well as famotidine 40 mg at bedtime. 8. Constipation. Start the patient on lactulose 20 g orally twice every day, continue Senokot S2 tablet orally bedtime may use MiraLAX 17 g in 8 ounces water as needed. 9. Enlarged prostate urinary retention. Continue tamsulosin 0.4 mg orally once every day status post Albright catheter. Attempt to remove Albright catheter. 10. DVT prophylaxis. Continue patient on Lovenox 40 mg subcutaneously every 24 hours. 11. GI prophylaxis. Continue PPI. 12. Constipation. Continue lactulose 20 mg twice daily. Dulcolax suppository ordered for today and possible need for fleets enema. 13. Full code. 14. Physical therapy and occupational therapy evaluation. DISCHARGE PLAN Return to [facility] on Wednesday, PT and OT consults. Impression and plan of care have been directed as dictated by the signing physician. Robyn Lopez nurse practitioner acting as scribe for signing physician. Objective - Vital Signs Vital signs: Vital Signs Temp 97.8 F 03/07/21 05:12 Pulse 63 03/07/21 05:12 Resp 18 03/07/21 05:12 BP 162/79 03/07/21 05:12 Pulse Ox 97 03/07/21 05:12 Intake & Output 03/06/21 03/07/21 03/07/21 18:59 06:59 18:59 Intake Total 200 Output Total 2700 Balance -2500 Intake: Intake, IV Titration 200 Amount Acyclovir Sodium 880 mg 150 In Sodium Chloride 0.9% 150 ml @ 100 mls/hr IV Q8HR [facility] Rx#:[id number] ceFAZolin 2 gm In Sodium 50 Chloride 0.9% 50 ml @ 100 mls/hr IVPB Q8HR [facility] Rx# :[id number] Output: Urine 2700 Other: Voiding Method Indwelling Catheter Indwelling Catheter # Bowel Movements 2 - Labs CBC & Chem 7: 03/04/21 05:58 03/06/21 06:36 Labs: Abnormal Lab Results - Last 24 Hours (Table) 03/06/21 Range/Units 06:36 Sodium 132 L (135-145) mmol/L C-Reactive Protein 3.90 H (0.00-0.80) mg/dL Microbiology - Last 24 Hours (Table) 03/03/21 12:36 Blood Culture Gram Stain - Preliminary Blood Blood Culture - Preliminary Coagulase Negative Staph 03/03/21 12:10 Blood Culture Gram Stain - Final Blood Blood Culture - Final Staphylococcus epidermidis
--- NOTE | 2021-03-07 21:25 | P.PN ---
Subjective Progress Note Date: 03/06/21 Principal diagnosis: Right-sided facial cellulitis/herpes zoster Patient is 85-year-old male presented to hospital right-sided facial swelling and redness in this patient diagnosed with right-sided herpes zoster and conjunctivitis. On today's evaluation that is 03/06/2021 The patient remains to be afebrile, the patient right-sided facial swelling redness and pain has decreased intensity patient denies having any chest pain shortness of breath or cough no nausea vomiting no abdominal pain and no diarrhea Objective - Vital Signs Vital signs: Vital Signs Temp 97.5 F L 03/06/21 12:35 Pulse 67 03/06/21 12:35 Resp 18 03/06/21 12:35 BP 162/76 03/06/21 12:35 Pulse Ox 97 03/06/21 12:35 Intake & Output 03/05/21 03/06/21 03/06/21 18:59 06:59 18:59 Intake Total 100 Output Total 1225 500 Balance -1225 -400 Intake: Intake, IV Titration 100 Amount ceFAZolin 2 gm In Sodium 100 Chloride 0.9% 50 ml @ 100 mls/hr IVPB Q8HR [facility] Rx# :[id number] Output: Urine 1225 500 Uretheral (Albright) 525 300 Other: Voiding Method Toilet Toilet Indwelling Catheter Urinal Urinal # Voids 2 - Exam GENERAL DESCRIPTION: Middle-aged male lying in bed, no distress. No tachypnea or accessory muscle of respiration use. HEENT: Right-sided facial swelling redness and vesicular rash LUNGS: Unlabored breathing. Clear to auscultation anteriorly. No wheeze or crackle. HEART: S1, S2, regular rate and rhythm. No loud murmur ABDOMEN: Soft, no tenderness , guarding or rigidity, no organomegaly EXTREMITIES: No edema of feet. - Labs CBC & Chem 7: 03/04/21 05:58 03/06/21 06:36 Labs: Abnormal Lab Results - Last 24 Hours (Table) 03/06/21 Range/Units 06:36 Sodium 132 L (135-145) mmol/L C-Reactive Protein 3.90 H (0.00-0.80) mg/dL Microbiology - Last 24 Hours (Table) 03/03/21 12:36 Blood Culture Gram Stain - Preliminary Blood Blood Culture - Preliminary Coagulase Negative Staph 03/03/21 12:10 Blood Culture Gram Stain - Final Blood Blood Culture - Final Staphylococcus epidermidis 03/03/21 12:36 Blood Culture - Final Blood 03/03/21 13:05 Gram Stain - Final Other - Other Wound Culture - Final Staphylococcus aureus Assessment and Plan Assessment: 1 (1) Facial cellulitis Current Visit: Yes Status: Acute Code(s): L03.211 - CELLULITIS OF FACE SNOMED Code(s): 242680767 (2) Herpes zoster infection of maxillary region Current Visit: Yes Status: Acute Code(s): B02.9 - ZOSTER WITHOUT COMPLICATIONS SNOMED Code(s): 363540153 Plan: 1patient with her right-sided facial herpes zoster for the patient to continue with acyclovir while watching his kidney first closely. 2patient with gram-positive bacteremia Which has been finalized as staph epi likely skin contaminant vancomycin discontinued. 3patient cellulitis local culture positive for MSSA patient is covered with cefazolin Time with Patient: Less than 30
--- NOTE | 2021-03-07 21:28 | P.PN ---
Subjective Progress Note Date: 03/07/21 Principal diagnosis: Right-sided facial cellulitis/herpes zoster Patient is 85-year-old male presented to hospital right-sided facial swelling and redness in this patient diagnosed with right-sided herpes zoster and conjunctivitis. On today's evaluation that is 03/07/2021 The patient continues to be afebrile, patient denies having any chest pain shortness of breath or cough no nausea vomiting no abdominal pain no diarrhea however some constipation right-sided facial pain swelling redness has decreased no drainage Objective - Vital Signs Vital signs: Vital Signs Temp 97.9 F 03/07/21 20:37 Pulse 74 03/07/21 20:37 Resp 18 03/07/21 20:37 BP 149/86 03/07/21 20:37 Pulse Ox 96 03/07/21 20:37 Intake & Output 03/07/21 03/07/21 03/08/21 06:59 18:59 06:59 Intake Total 200 1600 Output Total 2700 1000 250 Balance -2500 600 -250 Intake: Intake, IV Titration 200 400 Amount Acyclovir Sodium 880 mg 150 300 In Sodium Chloride 0.9% 150 ml @ 100 mls/hr IV Q8HR [facility] Rx#:[id number] ceFAZolin 2 gm In Sodium 50 100 Chloride 0.9% 50 ml @ 100 mls/hr IVPB Q8HR [facility] Rx# :[id number] Oral 1200 Output: Urine 2700 1000 250 Other: Voiding Method Indwelling Catheter Indwelling Catheter # Voids 1 - Exam GENERAL DESCRIPTION: Middle-aged male lying in bed, no distress. No tachypnea or accessory muscle of respiration use. HEENT: Right-sided facial swelling redness and vesicular rash Has decreased in intensity LUNGS: Unlabored breathing. Clear to auscultation anteriorly. No wheeze or crackle. HEART: S1, S2, regular rate and rhythm. No loud murmur ABDOMEN: Soft, no tenderness , guarding or rigidity, no organomegaly EXTREMITIES: No edema of feet. - Labs CBC & Chem 7: 03/04/21 05:58 03/06/21 06:36 Labs: Microbiology - Last 24 Hours (Table) 03/03/21 12:36 Blood Culture Gram Stain - Preliminary Blood Blood Culture - Preliminary Coagulase Negative Staph Coagulase Negative Staph#2 03/03/21 12:10 Blood Culture Gram Stain - Final Blood Blood Culture - Final Staphylococcus epidermidis 03/06/21 06:36 Blood Culture - Preliminary Blood No Growth after 24 hours Assessment and Plan (1) Facial cellulitis Current Visit: Yes Status: Acute Code(s): L03.211 - CELLULITIS OF FACE SNOMED Code(s): 855897045 (2) Herpes zoster infection of maxillary region Current Visit: Yes Status: Acute Code(s): B02.9 - ZOSTER WITHOUT COMPLICATIONS SNOMED Code(s): 405204399 Plan: 1patient with her right-sided facial herpes zoster for the patient to continue with acyclovir With the plan to finish therapy with oral Valtrex 2patient with gram-positive bacteremia Which has been finalized as staph epi likely skin contaminant Repeat blood culture negative no need for vancomycin 3patient cellulitis local culture positive for MSSA patient is covered with cefazolin To continue while inpatient finish therapy with oral Keflex
[2021-03-08] MEDS: hydrALAZINE HCL 20 MG/ML 1 ML VIAL IVP PRN ×2 (05:42→21:11)
[2021-03-08] MEDS: CIPROFLOXACIN 0.3% OPHTH SOLN 5 ML BTL RIGHT EYE SCH ×3 (05:43→21:08)
[2021-03-08] MEDS: OFLOXACIN 0.3% OPHTH DROPS 5 ML BOTTLE RIGHT EYE SCH ×6 (05:43→23:37)
[2021-03-08] MEDS: ASPIRIN 81 MG PO SCH (10:05)
[2021-03-08] MEDS: LACTULOSE 20 GM/30 ML CUP PO SCH ×2 (10:05→21:07)
[2021-03-08] MEDS: PANTOPRAZOLE 40 MG TABLET PO SCH (10:05)
[2021-03-08] MEDS: ATORVASTATIN 80 MG TAB PO SCH (10:05)
[2021-03-08] MEDS: FAMOTIDINE 20 MG TAB PO SCH (10:05)
[2021-03-08] MEDS: traMADol 50 MG TAB PO SCH ×3 (10:06→21:07)
[2021-03-08] MEDS: SPIRONOLACTONE 25 MG TAB PO SCH (10:06)
[2021-03-08] MEDS: lisinopriL 20 MG TAB PO SCH ×2 (10:06→21:08)
[2021-03-08] MEDS: LORATADINE 10 MG TAB PO SCH (10:07)
[2021-03-08] MEDS: METOPROLOL TARTRATE 50 MG TAB PO SCH ×2 (10:07→21:08)
--- NOTE | 2021-03-08 10:29 | P.PN ---
Subjective Progress Note Date: 03/08/21 Progress Note Date: 03/08/21 HISTORY OF PRESENT ILLNESS: This is an 85-year-old male with a previous medical history significant for hypertension and hypertensive cardio vascular disease, hyperlipidemia, paroxysmal atrial fibrillation, coronary artery disease with ischemic cardiomyopathy, enlarged prostate, history of AICD, patient presented to the emergency department at [facility] yesterday with increased right sided facial pain that was started on past Wednesday with increased burning sensation associated with increased blisters to the right face as well as the right eye in the rightpatient was not able to tolerate the pain his son brought him to the emergency department for evaluation and patient was found to have a significant herpes zoster infection associated with cellulitis to the right face, patient was started on Valtrex 1 g orally 3 times every day, he was placed also on IV antibiotic in the form of vancomycin and ceftriaxone, and he was admitted to the hospital for evaluation by infectious disease, ophthalmology examination was obtained from Dr. Claire 03/04: Patient is seen today on the [facility] floor. He states facial pain is a little bit better today. There is a consult and for engineering design supervisor regarding eye involvement. He is continued on IV acyclovir. Patient is trying to find his hearing aids and 1 May have gone missing, nursing staff updated. Consult is also in place with Dr. Weber. He has been afebrile, heart rate 81, blood pressure 160/99, pulse ox 93% on 2 L nasal cannula. Repeat blood work reveals platelet count of 134. Sodium 129, blood sugar 120. Troponins repeat came back negative. 03/05: Patient has been seen by ophthalmology with recommendations to continue Cipro, follow up in 3-4 days to recheck right now for any vasculitis and to recheck any increase in intraocular pressure due to shingles. Patient can follow-up with either Dr. Avelar or Dr. Baker. Patient has also been seen by Dr. Weber with recommendations to switch Valtrex to IV acyclovir, discontinue vancomycin and Rocephin. He has been afebrile, heart rate 71, blood pressure 177/89, pulse ox 91% on room air. Repeat creatinine 0.74. Repeat blood work ordered for tomorrow to follow up on sodium level. Blood culture from March 03 is positive for Staphylococcus epidermidis a contamination. Wound culture is in progress. Discharge plan is to return to [facility] without home care. 03/06: Patient continues to have facial swelling and erythema. He states he has not really eaten much since the last week. He does have some nausea. He is complaining of constipation for which a suppository will be ordered and if not a ffected an enema. He complains of loss of vision secondary to herpes zoster and also has underlying macular degeneration. Blood pressure medications will be adjusted.. He continues to have pain to the right side of his face. No open wounds or drainage. Dr. Weber is recommended continuing acyclovir, monitor kidney function. He is also on Kefzol for MSSA wound culture. Patient has been afebrile, heart rate 63, blood pressure 184/92. Blood cultures positive for Staphylococcus epidermidis a contaminant. 03/07: Patient thinks that his vision is a little bit better today but he has noted to have significant difficulty with ADLs including just setting up his breakfast. We will check if ophthalmology will be checking him again today. Wound culture finalized with MSSA. Blood cultures contaminant. Repeat blood culture from 03/06 is showing no growth at 24 hours. Blood work from 03/06: S odium 132, creatinine 0.7, C-reactive protein 3.9. Patient is followed by Dr. Weber with recommendations and continued on Kefzol and acyclovir. Blood Pressure remains elevated and Lopressor increased to 50 mg twice daily. 03/08: Patient sitting up in bed continues to have significant pain on the right side of the face, he is getting his tramadol, he denies any chest pain or any shortness breath, he did not have a bowel movement today he did have a large 1 yesterday, he needed a lot of help with activities of daily living, he is patient has been on cyclic severe as well as Kefzol and IV we'll continue with that over the weekend and evaluated the patient again REVIEW OF SYSTEMS: Constitutional: No documented fever, no chills, no night sweats. No weight change. Positive for weakness, fatigue no lethargy. No daytime sleepiness. HEENT: Positive for headache. Positive blurred vision no double vision, reports loss of vision in right eye. Positive for loss of Hearing is chronic, no ringing in the ears, no dizziness. Positive for nasal crust or congestion. No epistaxis. No sore throat. Lungs: No shortness of breath, no cough, no sputum production. No wheezing. Reports dyspnea with activity. Cardiovascular: No chest pain, no lower extremity edema. No palpitations. No paroxysmal nocturnal dyspnea. No orthopnea. No lightheadedness or dizziness. No syncopal episodes. Abdominal: Reports abdominal pain. reports nausea, no vomiting. No diarrhea. positive for constipation. No bloody or tarry stools. reports loss of appetite. Genitourinary: No dysuria, increased frequency, urgency. No urinary retention. Musculoskeletal: No myalgias. Positive for muscle weakness, no gait dysfunction, no frequent falls. No back pain. No neck pain. Integumentary: There is vesicular lesion on an erythematous base with significant crusting to the nose and nasolabial area along with the right cheek and right eye, with purulent drainage out of the right lower eyelid. Neurologic: No aphasia. No facial droop. No change in mentation. No head injury. No headache. No paralysis. No paresthesia. Psychiatric: No depression. No anxiety. No mood swings. Endocrine: No abnormal blood sugars. No weight change. PHYSICAL EXAMINATION: General: this is an 82-year-old male who is sitting up in bed in no distress HEENT: Head is atraumatic, normocephalic, pupils were equal round reactive to light and recommendation, extraocular muscle movement were intact, sclera n onicteric, conjunctivae were pale, mucous membranes of the mouth are somewhat dry. Neck: Supple, no JVP, normal carotid upstroke bilaterally, no lymphadenopathy. Chest: Decreased breath sounds at the bases, few rhonchi, no extremity wheezes, no chest wall tenderness, no intercostal retractions. Heart: First heart sound is normal, second heart sound is normal there is systolic ejection murmur 2/6 located in the left sternal border, there is AICD in the left upper precordium. Abdomen: Soft, nontender, nondistended, positive bowel sounds. there is no hepatosplenomegaly. Extremities: There is no edema no calf tenderness DP +2 bilaterally. Neurologic examination: Patient is awake alert and oriented X 3, cranial nerves II-12 appear grossly intact, muscle power were 5 out of 5 in upper extremities and 5 out of 5 in bilateral lower extremities, deep tendon reflexes normal bilaterally. ASSESSMENT AND PLAN: 1. Right facial herpes zoster with eye involvement. Continue patient on acyclovir 880 mg IV piggyback every 8 hours, continue ciprofloxacin to the right eye, ophthalmology consultation and infectious disease consultation appreciated, continue with Ancef 2 g IV piggyback every 8 hours likely would be switched to oral Keflex when the patient goes home. 2. Right facial cellulitis MSSA and top of the herpes zoster area. Continue Kefzol 2 g IV piggyback every 8 hours. 3. Hypertension and hypertensive cardiovascular disease. Continue patient on lisinopril 20 mg orally twice every day as well as metoprolol 50 mg orally twice every day. Continue to monitor the blood pressure very closely. 4. Hyperlipidemia. Continue patient on atorvastatin 80 mg orally once every day. 5. CAD post-PCI with ischemic cardiopathy. Continue aspirin 81 mg once every day, metoprolol 50 mg orally twice daily , atorvatatin 80 mg orally once every day. 6. ALLERGIC rhinitis. Continue patient on loratadine 10 mg orally once every day. 7. GERD. Continue omeprazole 40 mg orally once every day as well as famotidine 40 mg at bedtime. 8. Constipation. Start the patient on lactulose 20 g orally twice every day, continue Senokot S2 tablet orally bedtime may use MiraLAX 17 g in 8 ounces water as needed. 9. Enlarged prostate urinary retention. Continue tamsulosin 0.4 mg orally once every day status post Albright catheter placement and removal. 10. DVT prophylaxis. Continue patient on Lovenox 40 mg subcutaneously every 24 hours. 11. GI prophylaxis. Continue PPI. 12. Constipation. Continue lactulose 20 mg twice daily. Dulcolax suppository ordered for today and possible need for fleets enema. 13. Full code. 14. Physical therapy and occupational therapy evaluation. DISCHARGE PLAN Return to [facility] on Wednesday, PT and OT consults. Objective - Vital Signs Vital signs: Vital Signs Temp 97.9 F 03/08/21 05:00 Pulse 59 L 03/08/21 05:00 Resp 16 03/08/21 05:00 BP 164/74 03/08/21 06:53 Pulse Ox 94 L 03/08/21 05:00 Intake & Output 03/07/21 03/08/21 03/08/21 18:59 06:59 18:59 Intake Total 1600 250 Output Total 1000 450 Balance 600 -200 Intake: Intake, IV Titration 400 250 Amount Acyclovir Sodium 880 mg 300 150 In Sodium Chloride 0.9% 150 ml @ 100 mls/hr IV Q8HR [facility] Rx#:[id number] ceFAZolin 2 gm In Sodium 100 100 Chloride 0.9% 50 ml @ 100 mls/hr IVPB Q8HR [facility] Rx# :[id number] Oral 1200 Output: Urine 1000 450 Other: Voiding Method Indwelling Catheter Toilet # Voids 1 # Bowel Movements 1 - Labs CBC & Chem 7: 03/04/21 05:58 03/06/21 06:36 Labs: Microbiology - Last 24 Hours (Table) 03/06/21 06:36 Blood Culture - Preliminary Blood No Growth after 48 hours 03/03/21 12:36 Blood Culture Gram Stain - Preliminary Blood Blood Culture - Preliminary Coagulase Negative Staph Coagulase Negative Staph#2 03/03/21 12:10 Blood Culture Gram Stain - Final Blood Blood Culture - Final Staphylococcus epidermidis
[2021-03-08] MEDS: SODIUM CHLORIDE 0.9% IV SCH ×2 (12:26→18:08)
[2021-03-08] MEDS: ACYCLOVIR SODIUM IV SCH ×2 (12:26→18:08)
[2021-03-08] MEDS: ENOXAPARIN 40 MG/0.4 ML SYRINGE SQ SCH (12:35)
--- NOTE | 2021-03-08 23:12 | P.PN ---
Subjective Progress Note Date: 03/08/21 Principal diagnosis: Right-sided facial cellulitis/herpes zoster Patient is 85-year-old male presented to hospital right-sided facial swelling and redness in this patient diagnosed with right-sided herpes zoster and conjunctivitis. On today's evaluation that is 03/08/2021 The patient remains to be afebrile, patient denies 2 chest pain shortness of breath or cough, the patient denies nausea vomiting no abdominal pain no diarrhea , the patient right-sided facial pain swelling redness has decreased no drainage Objective - Vital Signs Vital signs: Vital Signs Temp 98.2 F 03/08/21 20: Pulse 65 03/08/21 20: Resp 18 03/08/21 20:22 BP 169/74 03/08/21 20: Pulse Ox 93 L 03/08/21 20:22 Intake & Output 03/08/21 03/08/21 03/09/21 06:59 18:59 06:59 Intake Total 250 240 Output Total 450 Balance -200 240 Intake: Intake, IV Titration 250 Amount Acyclovir Sodium 880 mg 150 In Sodium Chloride 0.9% 150 ml @ 100 mls/hr IV Q8HR [facility] Rx#:[id number] ceFAZolin 2 gm In Sodium 100 Chloride 0.9% 50 ml @ 100 mls/hr IVPB Q8HR [facility] Rx# :[id number] Oral 240 Output: Urine 450 Other: Voiding Method Toilet Toilet Toilet # Voids 1 2 # Bowel Movements 1 - Exam GENERAL DESCRIPTION: Middle-aged male lying in bed, no distress. No tachypnea or accessory muscle of respiration use. HEENT: Right-sided facial swelling redness and vesicular rash Has decreased in intensity LUNGS: Unlabored breathing. Clear to auscultation anteriorly. No wheeze or crackle. HEART: S1, S2, regular rate and rhythm. No loud murmur ABDOMEN: Soft, no tenderness , guarding or rigidity, no organomegaly EXTREMITIES: No edema of feet. - Labs CBC & Chem 7: 03/04/21 05:58 03/06/21 06:36 Labs: Microbiology - Last 24 Hours (Table) 03/03/21 12:36 Blood Culture Gram Stain - Final Blood Blood Culture - Final Staph capitis SS capitis Coagulase Negative Staph 03/06/21 06:36 Blood Culture - Preliminary Blood No Growth after 48 hours Assessment and Plan (1) Facial cellulitis Current Visit: Yes Status: Acute Code(s): L03.211 - CELLULITIS OF FACE SNOMED Code(s): 360333062 (2) Herpes zoster infection of maxillary region Current Visit: Yes Status: Acute Code(s): B02.9 - ZOSTER WITHOUT COMPLICATIONS SNOMED Code(s): 267779413 Plan: 1patient with her right-sided facial herpes zoster for the patient will be switched over to oral Valtrex 2patient with gram-positive bacteremia Which has been finalized as staph epi likely skin contaminant Repeat blood culture negative no need for vancomycin 3patient cellulitis local culture positive for MSSA patient is covered with c efazolin which will be continued inpatient and transitioned to oral Keflex on discharge Time with Patient: Less than 30
[2021-03-08] MEDS: valACYclovir 500 MG TAB PO SCH (23:37)
[2021-03-09] MEDS: OFLOXACIN 0.3% OPHTH DROPS 5 ML BOTTLE RIGHT EYE SCH ×5 (05:00→22:03)
[2021-03-09] MEDS: CIPROFLOXACIN 0.3% OPHTH SOLN 5 ML BTL RIGHT EYE SCH ×3 (05:00→22:03)
[2021-03-09] MEDS: hydrALAZINE HCL 20 MG/ML 1 ML VIAL IVP PRN (05:00)
[2021-03-09] MEDS: PANTOPRAZOLE 40 MG TABLET PO SCH (10:25)
[2021-03-09] MEDS: ASPIRIN 81 MG PO SCH (10:26)
[2021-03-09] MEDS: valACYclovir 500 MG TAB PO SCH ×2 (10:26→16:50)
[2021-03-09] MEDS: ATORVASTATIN 80 MG TAB PO SCH (10:27)
[2021-03-09] MEDS: ENOXAPARIN 40 MG/0.4 ML SYRINGE SQ SCH (10:27)
[2021-03-09] MEDS: lisinopriL 20 MG TAB PO SCH (10:27)
[2021-03-09] MEDS: FAMOTIDINE 20 MG TAB PO SCH (10:27)
[2021-03-09] MEDS: LACTULOSE 20 GM/30 ML CUP PO SCH ×2 (10:27→22:02)
[2021-03-09] MEDS: SPIRONOLACTONE 25 MG TAB PO SCH (10:28)
[2021-03-09] MEDS: traMADol 50 MG TAB PO SCH ×3 (10:28→22:02)
[2021-03-09] MEDS: METOPROLOL TARTRATE 50 MG TAB PO SCH ×2 (10:28→22:03)
[2021-03-09] MEDS: LORATADINE 10 MG TAB PO SCH (10:28)
--- NOTE | 2021-03-09 11:07 | P.PN ---
Subjective Progress Note Date: 03/09/21 Progress Note Date: 03/08/21 HISTORY OF PRESENT ILLNESS: This is an 85-year-old male with a previous medical history significant for hypertension and hypertensive cardio vascular disease, hyperlipidemia, paroxysmal atrial fibrillation, coronary artery disease with ischemic cardiomyopathy, enlarged prostate, history of AICD, patient presented to the emergency department at [facility] yesterday with increased right sided facial pain that was started on past Wednesday with increased burning sensation associated with increased blisters to the right face as well as the right eye in the rightpatient was not able to tolerate the pain his son brought him to the emergency department for evaluation and patient was found to have a significant herpes zoster infection associated with cellulitis to the right face, patient was started on Valtrex 1 g orally 3 times every day, he was placed also on IV antibiotic in the form of vancomycin and ceftriaxone, and he was admitted to the hospital for evaluation by infectious disease, ophthalmology examination was obtained from Dr. Claire 03/04: Patient is seen today on the [facility] floor. He states facial pain is a little bit better today. There is a consult and for insole doubler regarding eye involvement. He is continued on IV acyclovir. Patient is trying to find his hearing aids and 1 May have gone missing, nursing staff updated. Consult is also in place with Dr. Weber. He has been afebrile, heart rate 81, blood pressure 160/99, pulse ox 93% on 2 L nasal cannula. Repeat blood work reveals platelet count of 134. Sodium 129, blood sugar 120. Troponins repeat came back negative. 03/05: Patient has been seen by ophthalmology with recommendations to continue Cipro, follow up in 3-4 days to recheck right now for any vasculitis and to recheck any increase in intraocular pressure due to shingles. Patient can follow-up with either Dr. Avelar or Dr. Baker. Patient has also been seen by Dr. Weber with recommendations to switch Valtrex to IV acyclovir, discontinue vancomycin and Rocephin. He has been afebrile, heart rate 71, blood pressure 177/89, pulse ox 91% on room air. Repeat creatinine 0.74. Repeat blood work ordered for tomorrow to follow up on sodium level. Blood culture from March 03 is positive for Staphylococcus epidermidis a contamination. Wound culture is in progress. Discharge plan is to return to [facility] without home care. 03/06: Patient continues to have facial swelling and erythema. He states he has not really eaten much since the last week. He does have some nausea. He is complaining of constipation for which a suppository will be ordered and if not a ffected an enema. He complains of loss of vision secondary to herpes zoster and also has underlying macular degeneration. Blood pressure medications will be adjusted.. He continues to have pain to the right side of his face. No open wounds or drainage. Dr. Weber is recommended continuing acyclovir, monitor kidney function. He is also on Kefzol for MSSA wound culture. Patient has been afebrile, heart rate 63, blood pressure 184/92. Blood cultures positive for Staphylococcus epidermidis a contaminant. 03/07: Patient thinks that his vision is a little bit better today but he has noted to have significant difficulty with ADLs including just setting up his breakfast. We will check if ophthalmology will be checking him again today. Wound culture finalized with MSSA. Blood cultures contaminant. Repeat blood culture from 03/06 is showing no growth at 24 hours. Blood work from 03/06: S odium 132, creatinine 0.7, C-reactive protein 3.9. Patient is followed by Dr. Weber with recommendations and continued on Kefzol and acyclovir. Blood Pressure remains elevated and Lopressor increased to 50 mg twice daily. 03/08: Patient sitting up in bed continues to have significant pain on the right side of the face, he is getting his tramadol, he denies any chest pain or any shortness breath, he did not have a bowel movement today he did have a large 1 yesterday, he needed a lot of help with activities of daily living, he is patient has been on cyclic severe as well as Kefzol and IV we'll continue with that over the weekend and evaluated the patient again 03/09: Patient is doing a lot better today his sitting up in a chair, he denies any chest pain or any shortness breath, his vision is a bit better in the right eye, he would be switched to oral Keflex 500 mg orally 3 times every day, we will switch his lisinopril to losartan 100 mg orally once every day because of the blood pressure still high, and we will send the patient home in the next 24 hours. REVIEW OF SYSTEMS: Constitutional: No documented fever, no chills, no night sweats. No weight change. Positive for weakness, fatigue no lethargy. No daytime sleepiness. HEENT: Positive for headache. Positive blurred vision no double vision, reports loss of vision in right eye. Positive for loss of Hearing is chronic, no ringing in the ears, no dizziness. Positive for nasal crust or congestion. No epistaxis. No sore throat. Lungs: No shortness of breath, no cough, no sputum production. No wheezing. Reports dyspnea with activity. Cardiovascular: No chest pain, no lower extremity edema. No palpitations. No paroxysmal nocturnal dyspnea. No orthopnea. No lightheadedness or dizziness. No syncopal episodes. Abdominal: Reports abdominal pain. reports nausea, no vomiting. No diarrhea. positive for constipation. No bloody or tarry stools. reports loss of appetite. Genitourinary: No dysuria, increased frequency, urgency. No urinary retention. Musculoskeletal: No myalgias. Positive for muscle weakness, no gait dysfunction, no frequent falls. No back pain. No neck pain. Integumentary: There is vesicular lesion on an erythematous base with significant crusting to the nose and nasolabial area along with the right cheek and right eye, with purulent drainage out of the right lower eyelid. Neurologic: No aphasia. No facial droop. No change in mentation. No head injury. No headache. No paralysis. No paresthesia. Psychiatric: No depression. No anxiety. No mood swings. Endocrine: No abnormal blood sugars. No weight change. PHYSICAL EXAMINATION: General: this is an 82-year-old male who is sitting up in bed in no distress HEENT: Head is atraumatic, normocephalic, pupils were equal round reactive to light and recommendation, extraocular muscle movement were intact, sclera nonicteric, conjunctivae were pale, mucous membranes of the mouth are somewhat dry. Neck: Supple, no JVP, normal carotid upstroke bilaterally, no lymphadenopathy. Chest: Decreased breath sounds at the bases, few rhonchi, no extremity wheezes, no chest wall tenderness, no intercostal retractions. Heart: First heart sound is normal, second heart sound is normal there is systolic ejection murmur 2/6 located in the left sternal border, there is AICD in the left upper precordium. Abdomen: Soft, nontender, nondistended, positive bowel sounds. there is no hepatosplenomegaly. Extremities: There is no edema no calf tenderness DP +2 bilaterally. Neurologic examination: Patient is awake alert and oriented X 3, cranial nerves II-12 appear grossly intact, muscle power were 5 out of 5 in upper extremities and 5 out of 5 in bilateral lower extremities, deep tendon reflexes normal bilaterally. ASSESSMENT AND PLAN: 1. Right facial herpes zoster with eye involvement. Acyclovir was discontinued restart the patient on Valtrex 1 g orally 3 times every day, discontinue Ancef start the patient on cephalexin 500 mg orally 3 times every day for the next 10 days, patient can be discharged home tomorrow morning 2. Right facial cellulitis MSSA and top of the herpes zoster area. Discontinue Kefzol start the patient on cephalexin 500 mg orally 3 times every day. 3. Hypertension and hypertensive cardiovascular disease. discontinue lisinopril and start losartan 100 mg orally once every day as well as metoprolol 50 mg orally twice every day. Continue to monitor the blood pressure very closely. 4. Hyperlipidemia. Continue patient on atorvastatin 80 mg orally once every day. 5. CAD post-PCI with ischemic cardiopathy. Continue aspirin 81 mg once every day, metoprolol 50 mg orally twice daily , atorvatatin 80 mg orally once every day. 6. ALLERGIC rhinitis. Continue patient on loratadine 10 mg orally once every day. 7. GERD. Continue omeprazole 40 mg orally once every day as well as famotidine 40 mg at bedtime. 8. Constipation. Start the patient on lactulose 20 g orally twice every day, continue Senokot S2 tablet orally bedtime may use MiraLAX 17 g in 8 ounces water as needed. 9. Enlarged prostate urinary retention. Continue tamsulosin 0.4 mg orally once every day status post Albright catheter placement and removal. 10. DVT prophylaxis. Continue patient on Lovenox 40 mg subcutaneously every 24 hours. 11. GI prophylaxis. Continue PPI. 12. Constipation. Continue lactulose 20 mg twice daily. Dulcolax suppository ordered for today and possible need for fleets enema. 13. Full code. 14. Physical therapy and occupational therapy evaluation. DISCHARGE PLAN Return to [facility] on Wednesday. Objective - Vital Signs Vital signs: Vital Signs Temp 97.8 F 03/09/21 04:52 Pulse 58 L 03/09/21 04:52 Resp 16 03/09/21 04:52 BP 182/88 03/09/21 04:52 Pulse Ox 98 03/09/21 04:52 Intake & Output 03/08/21 03/09/21 03/09/21 18:59 06:59 18:59 Intake Total 240 50 Output Total 200 Balance 240 -150 Intake: Intake, IV Titration 50 Amount ceFAZolin 2 gm In Sodium 50 Chloride 0.9% 50 ml @ 100 mls/hr IVPB Q8HR [facility] Rx# :[id number] Oral 240 Output: Urine 200 Other: Voiding Method Toilet Toilet # Voids 2 4 - Labs CBC & Chem 7: 03/04/21 05:58 03/06/21 06:36 Labs: Microbiology - Last 24 Hours (Table) 03/06/21 06:36 Blood Culture - Preliminary Blood No Growth after 72 hours 03/03/21 12:36 Blood Culture Gram Stain - Final Blood Blood Culture - Final Staph capitis SS capitis Coagulase Negative Staph
[2021-03-09] MEDS: LOSARTAN 50 MG TAB PO SCH (13:46)
[2021-03-09] MEDS: CEPHALEXIN 500 MG CAP PO SCH ×2 (16:49→22:02)
--- NOTE | 2021-03-09 21:41 | P.PN ---
Subjective Progress Note Date: 03/09/21 Principal diagnosis: Right-sided facial cellulitis/herpes zoster Patient is 85-year-old male presented to hospital right-sided facial swelling and redness in this patient diagnosed with right-sided herpes zoster and conjunctivitis. On today's evaluation that is 03/09/2021 The patient continues to be afebrile, patient denies chest pain shortness of breath or cough, the patient denies nausea vomiting no abdominal pain no diarrhea , the patient right-sided facial pain swelling redness has improved redness has resolved and the lesions are crusting up Objective - Vital Signs Vital signs: Vital Signs Temp 98.2 F 03/09/21 20:18 Pulse 73 03/09/21 20:18 Resp 17 03/09/21 20:18 BP 90/64 03/09/21 20:18 Pulse Ox 96 03/09/21 20:18 Intake & Output 03/09/21 03/09/21 03/10/21 06:59 18:59 06:59 Intake Total 50 360 Output Total 200 600 Balance -150 -240 Intake: Intake, IV Titration 50 Amount ceFAZolin 2 gm In Sodium 50 Chloride 0.9% 50 ml @ 100 mls/hr IVPB Q8HR [facility] Rx# :[id number] Oral 360 Output: Urine 200 600 Other: Voiding Method Toilet Toilet # Voids 4 - Exam GENERAL DESCRIPTION: Middle-aged male lying in bed, no distress. No tachypnea or accessory muscle of respiration use. HEENT: Right-sided facial swelling redness has resolved and vesicular rash has crusted up LUNGS: Unlabored breathing. Clear to auscultation anteriorly. No wheeze or crac kle. HEART: S1, S2, regular rate and rhythm. No loud murmur ABDOMEN: Soft, no tenderness , guarding or rigidity, no organomegaly EXTREMITIES: No edema of feet. - Labs CBC & Chem 7: 03/04/21 05:58 03/06/21 06:36 Labs: Microbiology - Last 24 Hours (Table) 03/06/21 06:36 Blood Culture - Preliminary Blood No Growth after 72 hours Assessment and Plan (1) Facial cellulitis Current Visit: Yes Status: Acute Code(s): L03.211 - CELLULITIS OF FACE SNOMED Code(s): 801937673 (2) Herpes zoster infection of maxillary region Current Visit: Yes Status: Acute Code(s): B02.9 - ZOSTER WITHOUT COMPL ICATIONS SNOMED Code(s): 075423517 Plan: 1patient with her right-sided facial herpes zoster for the patient to continue with oral Valtrex to finish seven-day course of therapy 2patient with gram-positive bacteremia Which has been finalized as staph epi likely skin contaminant Repeat blood culture negative no need for vancomycin 3patient cellulitis local culture positive for MSSA patient has been switched over to oral Keflex with a plan for 7 days on discharge Time with Patient: Less than 30
[2021-03-10] MEDS: valACYclovir 500 MG TAB PO SCH ×2 (01:03→08:26)
[2021-03-10] MEDS: OFLOXACIN 0.3% OPHTH DROPS 5 ML BOTTLE RIGHT EYE SCH ×2 (01:04→05:36)
[2021-03-10 05:07] VITALS: BP 168/95; PULSE 91; RESP 16; TEMP 98
[2021-03-10] MEDS: hydrALAZINE HCL 20 MG/ML 1 ML VIAL IVP PRN (05:36)
[2021-03-10] MEDS: CIPROFLOXACIN 0.3% OPHTH SOLN 5 ML BTL RIGHT EYE SCH (05:36)
[2021-03-10] MEDS: ENOXAPARIN 40 MG/0.4 ML SYRINGE SQ SCH (08:25)
[2021-03-10] MEDS: LOSARTAN 50 MG TAB PO SCH (08:25)
[2021-03-10] MEDS: SPIRONOLACTONE 25 MG TAB PO SCH (08:26)
[2021-03-10] MEDS: LACTULOSE 20 GM/30 ML CUP PO SCH (08:26)
[2021-03-10] MEDS: FAMOTIDINE 20 MG TAB PO SCH (08:26)
[2021-03-10] MEDS: LORATADINE 10 MG TAB PO SCH (08:26)
[2021-03-10] MEDS: ATORVASTATIN 80 MG TAB PO SCH (08:27)
[2021-03-10] MEDS: PANTOPRAZOLE 40 MG TABLET PO SCH (08:27)
[2021-03-10] MEDS: ASPIRIN 81 MG PO SCH (08:27)
[2021-03-10] MEDS: traMADol 50 MG TAB PO SCH (08:27)
[2021-03-10] MEDS: METOPROLOL TARTRATE 50 MG TAB PO SCH (08:27)
[2021-03-10] MEDS: CEPHALEXIN 500 MG CAP PO SCH (08:28)
[2021-03-10 09:20] LABS: Basophils # (A) 0.07 X 10*3/uL (0.00-0.10); Basophils % (A) 0.9 %; Eosinophils # (A) 0.49 X 10*3/uL (0.04-0.35); Eosinophils % (A) 6.4 %; HCT 45.8 % (39.6-50.0); HGB 15.2 g/dL (13.0-17.0); Lymphocytes # (A) 2.02 X 10*3/uL (0.90-5.00); Lymphocytes % (A) 26.5 %; MCH 32.1 pg (27.0-32.0); MCHC 33.2 g/dL (32.0-37.0); MCV 96.8 fL (80.0-97.0); Mean Platelet Volume 10.3 fL (9.5-12.2); Monocytes # (A) 0.65 X 10*3/uL (0.20-1.00); Monocytes % (A) 8.5 %; Neutrophils # (A) 4.36 X 10*3/uL (1.80-7.70); Neutrophils % (A) 57.3 %; Platelet Count 207 X 10*3/uL (140-440); RBC 4.73 X 10*6/uL (4.40-5.60); RDW 13.3 % (11.5-14.5); WBC 7.62 X 10*3/uL (4.50-10.00)
[2021-03-10 10:04] LABS: African American GFR (CKD) 89.3 (60.0-200.0); Albumin 3.7 g/dL (3.8-4.9); Albumin/Globulin Ratio 1.61 (1.60-3.17); Anion Gap 11.7 mmol/L (10.00-18.00); BUN/Creat Ratio 21.78 Ratio (12.00-20.00); Blood Urea Nitrogen 19.6 mg/dL (9.0-27.0); Calcium 9.6 mg/dL (8.7-10.3); Carbon Dioxide 25.3 mmol/L (20.0-27.5); Globulin 2.3 g/dL (1.6-3.3); Non-African American GFR(CKD) 77.1 (60.0-200.0); Potassium 3.9 mmol/L (3.5-5.5); Total Bilirubin 0.9 mg/dL (0.30-1.20)
== END 2021-03-10 10:39 | disposition home or self-care (01) | DRG 603 ==
LOC: EC 10:57 → 5NMEDONC 14:55
PROVIDERS: ADMIT Internal Medicine; ATTEND Internal Medicine
DX: L03.211 Cellulitis of face (principal); B02.8 Zoster with other complications; B02.39 Other herpes zoster eye disease; B95.61 Methicillin susceptible Staphylococcus aureus infection as the cause of diseases classified elsewhere; H10.89 Other conjunctivitis; H35.3130 Nonexudative age-related macular degeneration, bilateral, stage unspecified; E78.5 Hyperlipidemia, unspecified; H91.90 Unspecified hearing loss, unspecified ear; I11.0 Hypertensive heart disease with heart failure; I25.10 Atherosclerotic heart disease of native coronary artery without angina pectoris; I25.2 Old myocardial infarction; I25.5 Ischemic cardiomyopathy; I48.0 Paroxysmal atrial fibrillation; E05.80 Other thyrotoxicosis without thyrotoxic crisis or storm; E89.0 Postprocedural hypothyroidism; I50.9 Heart failure, unspecified; J30.9 Allergic rhinitis, unspecified; T46.2X5A Adverse effect of other antidysrhythmic drugs, initial encounter; K21.9 Gastro-esophageal reflux disease without esophagitis; K59.00 Constipation, unspecified; L01.00 Impetigo, unspecified; N40.1 Benign prostatic hyperplasia with lower urinary tract symptoms; R33.8 Other retention of urine; R26.9 Unspecified abnormalities of gait and mobility; Z20.822 Contact with and (suspected) exposure to COVID-19; Z79.82 Long term (current) use of aspirin; Z79.899 Other long term (current) drug therapy; Z80.0 Family history of malignant neoplasm of digestive organs; Z82.3 Family history of stroke; Z82.49 Family history of ischemic heart disease and other diseases of the circulatory system; Z83.3 Family history of diabetes mellitus; Z95.5 Presence of coronary angioplasty implant and graft; Z95.810 Presence of automatic (implantable) cardiac defibrillator; Z96.653 Presence of artificial knee joint, bilateral; Z90.89 Acquired absence of other organs; Z90.49 Acquired absence of other specified parts of digestive tract; Z91.81 History of falling; Z87.19 Personal history of other diseases of the digestive system; Z98.890 Other specified postprocedural states; Z98.42 Cataract extraction status, left eye; Z98.41 Cataract extraction status, right eye; Z87.891 Personal history of nicotine dependence
CPT/HCPCS: 36415; 70487; 71045; 80048; 80053; 81001; 82533; 82565; 83605; 84484; 85025; 85610; 85730; 86140; 87040; 87070; 87077; 87186; 87205; 87502; 87635; 93005; 94760; 96361; 96365; 96375; 99285

== ENCOUNTER 2021-05-26 10:57 | Emergency (ER) | payer MEDICARE ==
[2021-05-26 11:16] VITALS: RESP 18; TEMP 98
--- NOTE | 2021-05-26 11:29 | ED ---
General Adult HPI - General Chief complaint: Fall Stated complaint: Fall/head injury/wrist injury Time Seen by Provider: 05/26/21 11:15 Source: patient, family, RN notes reviewed, old records reviewed Mode of arrival: wheelchair Limitations: no limitations - History of Present Illness Initial comments: This is an 86-year-old male who presents emergency department stating that he fell while he was at the drugstore. Patient hit the right side of his head and has some skin tears on his right hand wrist area. Patient states he did not lose consciousness she was not dazed patient denies a headache. Patient denies any numbness or weakness. Patient denies any pain in the wrist or forearm. Patient denies any neck pain. Patient states he has no other injuries or complaints at this time patient is not sure of his tetanus is up-to-date - Related Data Home Medications Medication Instructions Recorded Confirmed Spironolactone [Aldactone] 12.5 mg PO DAILY 12/03/16 05/26/21 Aspirin [Adult Low Dose Aspirin EC] 81 mg PO DAILY 11/16/17 05/26/21 Atorvastatin [Lipitor] 80 mg PO DAILY 03/03/21 05/26/21 Metoprolol Tartrate [Lopressor] 12.5 mg PO HS 03/03/21 05/26/21 Nitroglycerin Sl Tabs [Nitrostat] 0.4 mg SL Q5M PRN 03/03/21 05/26/21 Omeprazole 40 mg PO DAILY 03/03/21 05/26/21 Allergies Allergy/AdvReac Type Severity Reaction Status Date / Time amlodipine besylate Allergy Rash/Hives Verified 05/26/21 13:26 [From Norvasc] isosorbide [From Imdur] Allergy Unknown Verified 05/26/21 13:26 Latex, Natural Rubber Allergy Rash/Hives Verified 05/26/21 13:26 Review of Systems ROS Statement: Those systems with pertinent positive or pertinent negative responses have been documented in the HPI. ROS Other: All systems not noted in ROS Statement are negative. 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 Last Myocardial Infarction Date:: History of Any Multi-Drug Resistant Organisms: None Reported Past Surgical History: Adenoidectomy, AICD, Appendectomy, Cholecystectomy, Heart Catheterization, Heart Catheterization With Stent, Joint Replacement, Orthopedic Surgery, Pacemaker, Tonsillectomy Additional Past Surgical History / Comment(s): AICD, Defrillation Testing 04/02/14, TOTAL LT/RT KNEE ARTHROPLASTY, bilateral CATARACTS, bilateral carpal tunnel releases, PARTIAL THYROIDECTOMY due to nodules, trigger fingers,heart stents x3 Past Anesthesia/Blood Transfusion Reactions: No Reported Reaction Additional Past Anesthesia/Blood Transfusion Reaction / Comment(s): wakes up during surgery,no hx blood transfusion Date of Last Stent Placement:: Type of Cardiac Device: AICD Device Placement Date:: 12-04-13 [employer] Past Psychological History: No Psychological Hx Reported Smoking Status: Never smoker Past Alcohol Use History: None Reported Past Drug Use History: None Reported - Past Family History Son(s) Family Medical History: No Reported History Father Family Medical History: Cancer, Coronary Artery Disease (CAD), CVA/TIA, Diabetes Mellitus Additional Family Medical History / Comment(s): CAROTID ARTERY BLOCKAGE.SX IN 1988 Mother Family Medical History: Unable to Obtain Additional Family Medical History / Comment(s): AT AGE 89- UNK HX Daughter(s) Family Medical History: Cancer (Patient has 2 adopted daughters and he has been under a lot of stress with his adopted daughter whom her left taking her cars with him.) BROTHER Family Medical History: Cancer Additional Family Medical History / Comment(s): BONE, PANCREATIC General Exam - General Exam Comments Initial Comments: GENERAL: Patient is well-developed and well-nourished. Patient is nontoxic and well- hydrated and is in mild distress. ENT: Neck is soft and supple. No significant lymphadenopathy is noted. Oropharynx is clear. Moist mucous membranes. Neck has full range of motion without eliciting any pain. EYES: The sclera were anicteric and conjunctiva were pink and moist. Extraocular movements were intact and pupils were equal round and reactive to light. Eyelids were unremarkable. SKIN: Patient has a skin tear on the right hand and 2 skin tears on the distal forearm. Patient also has a skin tear above the right eye along the eyebrow and there is a small or laceration. NEUROLOGIC: Patient is alert and oriented x3. Cranial nerves II through XII are grossly intact. Motor and sensory are also intact. Normal speech, volume and content. Symmetrical smile. MUSCULOSKELETAL: Normal extremities with adequate strength and full range of motion. LYMPHATICS: No significant lymphadenopathy is noted PSYCHIATRIC: Normal psychiatric evaluation. Limitations: no limitations Course Vital Signs 05/26/21 11:12 Temperature 98 F Pulse Rate 62 Respiratory 18 Rate Blood Pressure 165/82 O2 Sat by Pulse 96 Oximetry Procedures - Laceration Laceration #1 Consent Obtained: verbal consent Indication: laceration Site: face Description: linear Pre-repair: wound explored, irrigated extensively Size of Sutures: other (Exofin) Medical Decision Making - Medical Decision Making CT of the brain and C-spine showed no acute abnormality. I used Dermabond to close of the small laceration on the forehead and used it on the skin tears of the forearm. Chest x-ray shows no acute abnormality. Disposition Clinical Impression: Skin tear, Laceration of forehead, Fall, Rib injury Disposition: HOME SELF-CARE Condition: Good Instructions (If sedation given, give patient instructions): Fall Prevention (ED), Skin Adhesive Care (ED) Is patient prescribed a controlled substance at d/c from ED?: No Referrals: Oskar Rowland MD [Primary Care Provider] - 1-2 days Time of Disposition: 13:10
[2021-05-26] MEDS ORDERED: TOPICAL SKIN ADHESIVE 1 EACH AMP TOPICAL ONE (11:46)
[2021-05-26] MEDS ORDERED: DIPH,PERTUS(ACELL)TETVAC-LF 0.5 ML VIAL IM ONE (12:18)
--- NOTE | 2021-05-26 12:19 | CT ---
EXAMINATION TYPE: CT brain cspine wo con DATE OF EXAM: 05/26/2021 COMPARISON: CT dated 02/08/2018 and 06.23 HISTORY: Fall CT DLP: 1606.2 mGycm Automated exposure control for dose reduction was used. TECHNIQUE: CT scan of the head and cervical spine are performed without contrast. FINDINGS: Brain volume loss changes, chronic ischemic changes and scattered atherosclerotic arterial calcificat ions. There is no acute intracranial hemorrhage, mass effect, or midline shift identified. Unremarkab le basal cisterns, sella and CP angles. Right scleral buckling, otherwise unremarkable orbits. Clear visualized sinuses and mastoid air cells. No definite acute calvarial bone fracture identified. Well-corticated fracture of the base of the odontoid process associated with fusion of the odontoid a nd the anterior arch of C1 as well as lateral subluxation of C1 over C2 and posterior subluxation of the right atlantoaxial articulation. These changes are likely chronic, please correlate clinically. S uspected nondisplaced fracture of the left side of the posterior arch of C1, possibly chronic. No oth er definite vertebral body collapse or acute displaced fracture. Mild anterolisthesis of C2 over C3. Advanced degenerative changes of the cervical spine with multilevel opposing endplate osteophytosis, degenerated discs, uncovertebral and facet osteoarthropathy. Multilevel neuroforaminal stenosis is al so noted. Spinal canal stenosis is seen at C2-3 level. Suspected previous left hemithyroidectomy. Sca ttered arterial atherosclerotic calcifications. No paraspinal lesion. COPD changes seen in the lung a pex bilaterally. IMPRESSION: 1. No acute intracranial posttraumatic sequela or acute calvarial bone fracture. 2. Well-corticated fracture at the base of the odontoid process with the above-described changes at C 1 and C2 level are likely chronic, please correlate clinically. Subtle acute on top of chronic fractu re at that location cannot be excluded. Recommend spine surgery consultation. Further MRI assessment can be also considered. Other findings as described above.
--- NOTE | 2021-05-26 13:26 | XR ---
EXAMINATION TYPE: XR chest 2V DATE OF EXAM: 05/26/2021 COMPARISON: 03/03/2021 TECHNIQUE: PA and lateral views submitted. HISTORY: Fever FINDINGS: The lungs are clear and there is no pneumothorax, pleural effusion, or focal pneumonia. Cardiac dev ice is seen. There is atherosclerotic change of the aorta. There is arthropathy of the shoulders with diffuse osteopenia. Coarsened interstitium. Hypertrophic and degenerative changes of the spine. IMPRESSION: 1. Cardiomegaly correlate for COPD.
[2021-05-26 14:41] VITALS: BP 145/85; PULSE 66
== END 2021-05-26 14:27 | disposition home or self-care (01) ==
LOC: EC 10:57
DX: S01.81XA Laceration without foreign body of other part of head, initial encounter (principal); S09.93XA Unspecified injury of face, initial encounter; I25.10 Atherosclerotic heart disease of native coronary artery without angina pectoris; I11.0 Hypertensive heart disease with heart failure; I50.9 Heart failure, unspecified; K21.9 Gastro-esophageal reflux disease without esophagitis; E78.5 Hyperlipidemia, unspecified; I25.2 Old myocardial infarction; M19.90 Unspecified osteoarthritis, unspecified site; E07.9 Disorder of thyroid, unspecified; Z79.82 Long term (current) use of aspirin; Z91.040 Latex allergy status; Z90.49 Acquired absence of other specified parts of digestive tract; Z95.0 Presence of cardiac pacemaker; Z96.653 Presence of artificial knee joint, bilateral; W01.10XA Fall on same level from slipping, tripping and stumbling with subsequent striking against unspecified object, initial encounter; Z23 Encounter for immunization
CPT/HCPCS: 12011; 70450; 71046; 72125; 90471; 90715; 99284

== ENCOUNTER → 2021-06-19 | Outpatient (CLI) | payer MEDICARE ==
[2021-06-19 15:16] LABS: ALT 11 U/L (10-49); AST 17 U/L (14-35); African American GFR (CKD) 92.8 (60.0-200.0); Albumin 3.8 g/dL (3.8-4.9); Albumin/Globulin Ratio 1.56 (1.60-3.17); Alkaline Phosphatase 149 U/L (41-126); Blood Urea Nitrogen 15.9 mg/dL (9.0-27.0); Calcium 9.3 mg/dL (8.7-10.3); Carbon Dioxide 26.1 mmol/L (20.0-27.5); Chloride 100 mmol/L (96-109); Chol/HDL Ratio 2.62 Ratio; Globulin 2.4 g/dL (1.6-3.3); Glucose 102 mg/dL (70-110); LDL Cholesterol,Calculated 50.7 mg/dL (0.0-131.0); Potassium 4.5 mmol/L (3.5-5.5); Sodium 134 mmol/L (135-145); Total Protein 6.2 g/dL (6.2-8.2)
== END | disposition home or self-care (01) ==
LOC: LABWHC1 08:25
PROVIDERS: ATTEND Nurse Practitioner Adult Health
DX: I10 Essential (primary) hypertension (principal); E78.2 Mixed hyperlipidemia
CPT/HCPCS: 36415; 80053; 80061

== ENCOUNTER → 2021-12-04 | Outpatient (CLI) | payer MEDICARE ==
[2021-12-04 15:02] LABS: African American GFR (CKD) 88.7 (60.0-200.0); BUN/Creat Ratio 11.33 Ratio (12.00-20.00); Blood Urea Nitrogen 10.2 mg/dL (9.0-27.0); Calcium 9.3 mg/dL (8.7-10.3); Non-African American GFR(CKD) 76.5 (60.0-200.0); Potassium 4.9 mmol/L (3.5-5.5)
== END | disposition home or self-care (01) ==
LOC: LABWHC1 08:24
PROVIDERS: ATTEND Internal Medicine Interventional Cardiology
DX: E87.1 Hypo-osmolality and hyponatremia (principal)
CPT/HCPCS: 36415; 80048

== ENCOUNTER 2022-01-01 21:45 | Inpatient (IN) | payer MEDICARE ==
[2022-01-01] MEDS ORDERED: SODIUM CHLORIDE 0.9% 1,000 ML IV STA (22:05)
--- NOTE | 2022-01-01 22:07 | ED ---
Weakness HPI - General Chief complaint: Fall Stated complaint: Fall-Head injury(AMS) Time Seen by Provider: 01/01/22 22:05 Source: patient, family, RN notes reviewed, old records reviewed Mode of arrival: wheelchair Limitations: no limitations - History of Present Illness Initial comments: This is an 86-year-old male to the emergency department for evaluation patient is a poor historian. Patient is a fall, weakness. Patient is found to be weak here in the ER no specific injury but he did hit his head. Patient is lightheaded and dizzy here in the ER no chest pain no shortness of breath no abdominal pain MD Complaint: generalized weakness, lack of energy, difficulty walking -: hour(s) Location: generalized Severity scale (1-10): 4 Quality: tingling, numbness Consistency: intermittent Improves with: none Worsens with: none Context: history of similar Associated Symptoms: confusion - Related Data Home Medications Medication Instructions Recorded Confirmed Spironolactone [Aldactone] 12.5 mg PO DAILY 12/03/16 01/02/22 Aspirin [Adult Low Dose Aspirin EC] 81 mg PO DAILY 11/16/17 01/02/22 Atorvastatin [Lipitor] 80 mg PO DAILY 03/03/21 01/02/22 Omeprazole 40 mg PO DAILY 03/03/21 01/02/22 Cetirizine HCl [Zyrtec] 10 mg PO DAILY 01/02/22 01/02/22 Previous Rx's Medication Instructions Recorded Amiodarone [Cordarone] 400 mg PO BID #120 tab 01/05/22 Losartan [Cozaar] 100 mg PO DAILY #90 tab 01/06/22 Metoprolol Succinate (ER) [Toprol 75 mg PO HS #90 tab 01/06/22 XL] Sennosides [Senokot] 17.2 mg PO HS PRN tab 01/06/22 Allergies Allergy/AdvReac Type Severity Reaction Status Date / Time amlodipine besylate Allergy Rash/Hives Verified 01/02/22 08:35 [From Norvasc] isosorbide [From Imdur] Allergy Unknown Verified 01/02/22 08:35 Latex, Natural Rubber Allergy Rash/Hives Verified 01/02/22 08:35 Review of Systems ROS Statement: Those systems with pertinent positive or pertinent negative responses have been documented in the HPI. ROS Other: All systems not noted in ROS Statement are negative. Past Medical History Past Medical History: Coronary Artery Disease (CAD), Heart Failure, Eye Disorder, GERD/Reflux, GI Bleed, Hyperlipidemia, Hypertension, Myocardial Infarction (UT), Osteoarthritis (OA), Prostate Disorder, Thyroid Disorder Additional Past Medical History / Comment(s): cardiomyopathy, DENGENERATIVE ARTHRITIS, MACULAR DEGENERATION AND CATARACTS,GI BLEED 2011, fall 11-24-16/facial inj/bruing/broken front teeth,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 Last Myocardial Infarction Date:: History of Any Multi-Drug Resistant Organisms: None Reported Past Surgical History: Adenoidectomy, AICD, Appendectomy, Cholecystectomy, Heart Catheterization, Heart Catheterization With Stent, Joint Replacement, Orthopedic Surgery, Pacemaker, Tonsillectomy Additional Past Surgical History / Comment(s): AICD, Defrillation Testing 04/02/14, TOTAL LT/RT KNEE ARTHROPLASTY, bilateral CATARACTS, bilateral carpal tunnel releases, PARTIAL THYROIDECTOMY due to nodules, trigger fingers,heart stents x3 Past Anesthesia/Blood Transfusion Reactions: No Reported Reaction Additional Past Anesthesia/Blood Transfusion Reaction / Comment(s): wakes up during surgery,no hx blood transfusion Date of Last Stent Placement:: Type of Cardiac Device: AICD Device Placement Date:: 12-04-13 [employer] Past Psychological History: No Psychological Hx Reported Smoking Status: Never smoker Past Alcohol Use History: None Reported Past Drug Use History: None Reported - Past Family History Son(s) Family Medical History: No Reported History Father Family Medical History: Cancer, Coronary Artery Disease (CAD), CVA/TIA, Diabetes Mellitus Additional Family Medical History / Comment(s): CAROTID ARTERY BLOCKAGE.SX IN 1988 Mother Family Medical History: Unable to Obtain Additional Family Medical History / Comment(s): AT AGE 89- UNK HX Daughter(s) Family Medical History: Cancer (Patient has 2 adopted daughters and he has been under a lot of stress with his adopted daughter whom her left taking her cars with him.) BROTHER Family Medical History: Cancer Additional Family Medical History / Comment(s): BONE, PANCREATIC General Exam Limitations: no limitations General appearance: alert, in no apparent distress Head exam: Present: atraumatic, normocephalic, normal inspection Eye exam: Present: normal appearance, PERRL, EOMI. Absent: scleral icterus, conjunctival injection, periorbital swelling ENT exam: Present: normal exam, mucous membranes moist Neck exam: Present: normal inspection. Absent: tenderness, meningismus, lymphadenopathy Respiratory exam: Present: normal lung sounds bilaterally. Absent: respiratory distress, wheezes, rales, rhonchi, stridor Cardiovascular Exam: Present: regular rate, normal rhythm, normal heart sounds. Absent: systolic murmur, diastolic murmur, rubs, gallop, clicks GI/Abdominal exam: Present: soft, normal bowel sounds. Absent: distended, tenderness, guarding, rebound, rigid Extremities exam: Present: normal inspection, full ROM, normal capillary refill. Absent: tenderness, pedal edema, joint swelling, calf tenderness Back exam: Present: normal inspection Neurological exam: Present: alert, oriented X3, CN II-XII intact Psychiatric exam: Present: normal affect, normal mood Skin exam: Present: warm, dry, intact, normal color. Absent: rash Course Vital Signs 01/01/22 01/02/22 01/02/22 21:56 00:01 02:01 Temperature 81 F L Pulse Rate 80 82 86 Respiratory 18 16 16 Rate Blood Pressure 208/105 191/95 155/96 O2 Sat by Pulse 96 95 97 Oximetry 01/02/22 01/02/22 01/02/22 04:44 07:52 10:01 Temperature Pulse Rate 87 64 70 Respiratory 18 18 18 Rate Blood Pressure 179/92 185/98 189/102 O2 Sat by Pulse 96 96 96 Oximetry 01/02/22 01/02/22 01/02/22 11:00 11:18 12:21 Temperature Pulse Rate 67 Respiratory 18 18 Rate Blood Pressure 204/102 204/102 168/91 O2 Sat by Pulse 97 96 Oximetry 01/02/22 12:44 Temperature Pulse Rate 86 Respiratory 20 Rate Blood Pressure 157/74 O2 Sat by Pulse 97 Oximetry - Reevaluation(s) Reevaluation #1: 01/01/22 Medical records reviewed Patient symptoms improved here in the ER Patient informed of results and questions answered EKG Findings - EKG Comments: EKG Findings:: EKG is sinus 72 MO 180 QRS 137 QTc 411, second EKG shows no morphological change Medical Decision Making - Medical Decision Making 86 male DF for evaluation of weakness dehydration fall. Fall with hitting his head no injury noted from the fall of persistent weakness here in the ER and will be put in observation - Lab Data Result diagrams: 01/05/22 07:25 01/05/22 07:25 Lab Results 01/01/22 01/01/22 01/01/22 Range/Units 22:20 22:20 22:20 WBC 6.5 (3.8-10.6) k/uL RBC 5.01 (4.30-5.90) m/uL Hgb 16.3 (13.0-17.5) gm/dL Hct 48.9 (39.0-53.0) % MCV 97.5 (80.0-100.0) fL MCH 32.4 (25.0-35.0) pg MCHC 33.3 (31.0-37.0) g/dL RDW 12.4 (11.5-15.5) % Plt Count 174 (150-450) k/uL MPV 8.4 Neutrophils % 57 % Lymphocytes % 26 % Monocytes % 6 % Eosinophils % 8 % Basophils % 1 % Neutrophils # 3.7 (1.3-7.7) k/uL Lymphocytes # 1.7 (1.0-4.8) k/uL Monocytes # 0.4 (0-1.0) k/uL Eosinophils # 0.5 (0-0.7) k/uL Basophils # 0.1 (0-0.2) k/uL PT 12.4 H (9.0-12.0) sec INR 1.2 H (<1.2) APTT 27.0 (22.0-30.0) sec Sodium 132 L (137-145) mmol/L Potassium 4.7 (3.5-5.1) mmol/L Chloride 100 (98-107) mmol/L Carbon Dioxide 24 (22-30) mmol/L Anion Gap 8 mmol/L BUN 13 (9-20) mg/dL Creatinine 0.72 (0.66-1.25) mg/dL Est GFR (CKD-EPI)AfAm >90 (>60 ml/min/1.73 sqM) Est GFR (CKD-EPI)NonAf 84 (>60 ml/min/1.73 sqM) Glucose 106 H (74-99) mg/dL Calcium 9.1 (8.4-10.2) mg/dL Phosphorus 3.7 (2.5-4.5) mg/dL Magnesium 1.9 (1.6-2.3) mg/dL Total Bilirubin 1.0 (0.2-1.3) mg/dL AST 24 (17-59) U/L ALT 16 (4-49) U/L Alkaline Phosphatase 112 (38-126) U/L Troponin I (0.000-0.034) ng/mL NT-Pro-B Natriuret Pep pg/mL Total Protein 6.8 (6.3-8.2) g/dL Albumin 4.2 (3.5-5.0) g/dL TSH (0.465-4.680) mIU/L Urine Color Urine Appearance (Clear) Urine pH (5.0-8.0) Ur Specific [place] (1.001-1.035) Urine Protein (Negative) Urine Glucose (UA) (Negative) Urine Ketones (Negative) Urine Blood (Negative) Urine Nitrite (Negative) Urine Bilirubin (Negative) Urine Urobilinogen (<2.0) mg/dL Ur Leukocyte Esterase (Negative) 01/01/22 01/01/22 01/01/22 Range/Units 22:20 22:20 23:05 WBC (3.8-10.6) k/uL RBC (4.30-5.90) m/uL Hgb (13.0-17.5) gm/dL Hct (39.0-53.0) % MCV (80.0-100.0) fL MCH (25.0-35.0) pg MCHC (31.0-37.0) g/dL RDW (11.5-15.5) % Plt Count (150-450) k/uL MPV Neutrophils % % Lymphocytes % % Monocytes % % Eosinophils % % Basophils % % Neutrophils # (1.3-7.7) k/uL Lymphocytes # (1.0-4.8) k/uL Monocytes # (0-1.0) k/uL Eosinophils # (0-0.7) k/uL Basophils # (0-0.2) k/uL PT (9.0-12.0) sec INR (<1.2) APTT (22.0-30.0) sec Sodium (137-145) mmol/L Potassium (3.5-5.1) mmol/L Chloride (98-107) mmol/L Carbon Dioxide (22-30) mmol/L Anion Gap mmol/L BUN (9-20) mg/dL Creatinine (0.66-1.25) mg/dL Est GFR (CKD-EPI)AfAm (>60 ml/min/1.73 sqM) Est GFR (CKD-EPI)NonAf (>60 ml/min/1.73 sqM) Glucose (74-99) mg/dL Calcium (8.4-10.2) mg/dL Phosphorus (2.5-4.5) mg/dL Magnesium (1.6-2.3) mg/dL Total Bilirubin (0.2-1.3) mg/dL AST (17-59) U/L ALT (4-49) U/L Alkaline Phosphatase (38-126) U/L Troponin I <0.012 (0.000-0.034) ng/mL NT-Pro-B Natriuret Pep 717 pg/mL Total Protein (6.3-8.2) g/dL Albumin (3.5-5.0) g/dL TSH (0.465-4.680) mIU/L Urine Color Light Yellow Urine Appearance Clear (Clear) Urine pH 6.0 (5.0-8.0) Ur Specific [place] 1.008 (1.001-1.035) Urine Protein Negative (Negative) Urine Glucose (UA) Negative (Negative) Urine Ketones Negative (Negative) Urine Blood Negative (Negative) Urine Nitrite Negative (Negative) Urine Bilirubin Negative (Negative) Urine Urobilinogen <2.0 (<2.0) mg/dL Ur Leukocyte Esterase Negative (Negative) 01/02/22 01/02/22 01/02/22 Range/Units 00:42 04:45 04:45 WBC 7.6 (3.8-10.6) k/uL RBC 4.69 (4.30-5.90) m/uL Hgb 15.7 (13.0-17.5) gm/dL Hct 45.9 (39.0-53.0) % MCV 97.9 (80.0-100.0) fL MCH 33.4 (25.0-35.0) pg MCHC 34.1 (31.0-37.0) g/dL RDW 12.5 (11.5-15.5) % Plt Count 169 (150-450) k/uL MPV 8.1 Neutrophils % 59 % Lymphocytes % 25 % Monocytes % 6 % Eosinophils % 7 % Basophils % 1 % Neutrophils # 4.5 (1.3-7.7) k/uL Lymphocytes # 1.9 (1.0-4.8) k/uL Monocytes # 0.5 (0-1.0) k/uL Eosinophils # 0.6 (0-0.7) k/uL Basophils # 0.1 (0-0.2) k/uL PT (9.0-12.0) sec INR (<1.2) APTT (22.0-30.0) sec Sodium (137-145) mmol/L Potassium (3.5-5.1) mmol/L Chloride (98-107) mmol/L Carbon Dioxide (22-30) mmol/L Anion Gap mmol/L BUN (9-20) mg/dL Creatinine (0.66-1.25) mg/dL Est GFR (CKD-EPI)AfAm (>60 ml/min/1.73 sqM) Est GFR (CKD-EPI)NonAf (>60 ml/min/1.73 sqM) Glucose (74-99) mg/dL Calcium (8.4-10.2) mg/dL Phosphorus (2.5-4.5) mg/dL Magnesium (1.6-2.3) mg/dL Total Bilirubin (0.2-1.3) mg/dL AST (17-59) U/L ALT (4-49) U/L Alkaline Phosphatase (38-126) U/L Troponin I <0.012 0.016 (0.000-0.034) ng/mL NT-Pro-B Natriuret Pep pg/mL Total Protein (6.3-8.2) g/dL Albumin (3.5-5.0) g/dL TSH (0.465-4.680) mIU/L Urine Color Urine Appearance (Clear) Urine pH (5.0-8.0) Ur Specific [place] (1.001-1.035) Urine Protein (Negative) Urine Glucose (UA) (Negative) Urine Ketones (Negative) Urine Blood (Negative) Urine Nitrite (Negative) Urine Bilirubin (Negative) Urine Urobilinogen (<2.0) mg/dL Ur Leukocyte Esterase (Negative) 01/02/22 01/02/22 01/04/22 Range/Units 04:45 22:49 11:39 WBC 7.9 (3.8-10.6) k/uL RBC 4.96 (4.30-5.90) m/uL Hgb 16.5 (13.0-17.5) gm/dL Hct 48.8 (39.0-53.0) % MCV 98.5 (80.0-100.0) fL MCH 33.4 (25.0-35.0) pg MCHC 33.9 (31.0-37.0) g/dL RDW 12.6 (11.5-15.5) % Plt Count 171 (150-450) k/uL MPV 8.4 Neutrophils % 69 % Lymphocytes % 18 % Monocytes % 6 % Eosinophils % 5 % Basophils % 1 % Neutrophils # 5.4 (1.3-7.7) k/uL Lymphocytes # 1.4 (1.0-4.8) k/uL Monocytes # 0.5 (0-1.0) k/uL Eosinophils # 0.4 (0-0.7) k/uL Basophils # 0.1 (0-0.2) k/uL PT (9.0-12.0) sec INR (<1.2) APTT (22.0-30.0) sec Sodium 136 L (137-145) mmol/L Potassium 4.2 4.3 (3.5-5.1) mmol/L Chloride 107 (98-107) mmol/L Carbon Dioxide 24 (22-30) mmol/L Anion Gap 5 mmol/L BUN 10 (9-20) mg/dL Creatinine 0.66 (0.66-1.25) mg/dL Est GFR (CKD-EPI)AfAm >90 (>60 ml/min/1.73 sqM) Est GFR (CKD-EPI)NonAf 87 (>60 ml/min/1.73 sqM) Glucose 99 (74-99) mg/dL Calcium 8.5 (8.4-10.2) mg/dL Phosphorus (2.5-4.5) mg/dL Magnesium 1.9 (1.6-2.3) mg/dL Total Bilirubin 0.9 (0.2-1.3) mg/dL AST 20 (17-59) U/L ALT 16 (4-49) U/L Alkaline Phosphatase 99 (38-126) U/L Troponin I (0.000-0.034) ng/mL NT-Pro-B Natriuret Pep pg/mL Total Protein 5.9 L (6.3-8.2) g/dL Albumin 3.7 (3.5-5.0) g/dL TSH (0.465-4.680) mIU/L Urine Color Urine Appearance (Clear) Urine pH (5.0-8.0) Ur Specific [place] (1.001-1.035) Urine Protein (Negative) Urine Glucose (UA) (Negative) Urine Ketones (Negative) Urine Blood (Negative) Urine Nitrite (Negative) Urine Bilirubin (Negative) Urine Urobilinogen (<2.0) mg/dL Ur Leukocyte Esterase (Negative) 01/04/22 01/05/22 01/05/22 Range/Units 11:39 07:25 07:25 WBC 7.2 (3.8-10.6) k/uL RBC 4.91 (4.30-5.90) m/uL Hgb 16.5 (13.0-17.5) gm/dL Hct 48.8 (39.0-53.0) % MCV 99.4 (80.0-100.0) fL MCH 33.7 (25.0-35.0) pg MCHC 33.9 (31.0-37.0) g/dL RDW 12.6 (11.5-15.5) % Plt Count 175 (150-450) k/uL MPV 8.5 Neutrophils % 61 % Lymphocytes % 20 % Monocytes % 7 % Eosinophils % 8 % Basophils % 1 % Neutrophils # 4.4 (1.3-7.7) k/uL Lymphocytes # 1.5 (1.0-4.8) k/uL Monocytes # 0.5 (0-1.0) k/uL Eosinophils # 0.6 (0-0.7) k/uL Basophils # 0.1 (0-0.2) k/uL PT (9.0-12.0) sec INR (<1.2) APTT (22.0-30.0) sec Sodium 134 L 134 L (137-145) mmol/L Potassium 4.5 4.6 (3.5-5.1) mmol/L Chloride 105 106 (98-107) mmol/L Carbon Dioxide 22 20 L (22-30) mmol/L Anion Gap 7 8 mmol/L BUN 26 H 29 H (9-20) mg/dL Creatinine 0.84 1.03 (0.66-1.25) mg/dL Est GFR (CKD-EPI)AfAm >90 76 (>60 ml/min/1.73 sqM) Est GFR (CKD-EPI)NonAf 79 65 (>60 ml/min/1.73 sqM) Glucose 111 H 101 H (74-99) mg/dL Calcium 9.0 8.8 (8.4-10.2) mg/dL Phosphorus (2.5-4.5) mg/dL Magnesium 1.9 (1.6-2.3) mg/dL Total Bilirubin 1.1 1.3 (0.2-1.3) mg/dL AST 26 24 (17-59) U/L ALT 18 17 (4-49) U/L Alkaline Phosphatase 96 95 (38-126) U/L Troponin I (0.000-0.034) ng/mL NT-Pro-B Natriuret Pep pg/mL Total Protein 6.1 L 6.2 L (6.3-8.2) g/dL Albumin 3.7 3.7 (3.5-5.0) g/dL TSH (0.465-4.680) mIU/L Urine Color Urine Appearance (Clear) Urine pH (5.0-8.0) Ur Specific [place] (1.001-1.035) Urine Protein (Negative) Urine Glucose (UA) (Negative) Urine Ketones (Negative) Urine Blood (Negative) Urine Nitrite (Negative) Urine Bilirubin (Negative) Urine Urobilinogen (<2.0) mg/dL Ur Leukocyte Esterase (Negative) 01/05/22 Range/Units 07:25 WBC (3.8-10.6) k/uL RBC (4.30-5.90) m/uL Hgb (13.0-17.5) gm/dL Hct (39.0-53.0) % MCV (80.0-100.0) fL MCH (25.0-35.0) pg MCHC (31.0-37.0) g/dL RDW (11.5-15.5) % Plt Count (150-450) k/uL MPV Neutrophils % % Lymphocytes % % Monocytes % % Eosinophils % % Basophils % % Neutrophils # (1.3-7.7) k/uL Lymphocytes # (1.0-4.8) k/uL Monocytes # (0-1.0) k/uL Eosinophils # (0-0.7) k/uL Basophils # (0-0.2) k/uL PT (9.0-12.0) sec INR (<1.2) APTT (22.0-30.0) sec Sodium (137-145) mmol/L Potassium (3.5-5.1) mmol/L Chloride (98-107) mmol/L Carbon Dioxide (22-30) mmol/L Anion Gap mmol/L BUN (9-20) mg/dL Creatinine (0.66-1.25) mg/dL Est GFR (CKD-EPI)AfAm (>60 ml/min/1.73 sqM) Est GFR (CKD-EPI)NonAf (>60 ml/min/1.73 sqM) Glucose (74-99) mg/dL Calcium (8.4-10.2) mg/dL Phosphorus (2.5-4.5) mg/dL Magnesium (1.6-2.3) mg/dL Total Bilirubin (0.2-1.3) mg/dL AST (17-59) U/L ALT (4-49) U/L Alkaline Phosphatase (38-126) U/L Troponin I (0.000-0.034) ng/mL NT-Pro-B Natriuret Pep pg/mL Total Protein (6.3-8.2) g/dL Albumin (3.5-5.0) g/dL TSH 3.110 (0.465-4.680) mIU/L Urine Color Urine Appearance (Clear) Urine pH (5.0-8.0) Ur Specific [place] (1.001-1.035) Urine Protein (Negative) Urine Glucose (UA) (Negative) Urine Ketones (Negative) Urine Blood (Negative) Urine Nitrite (Negative) Urine Bilirubin (Negative) Urine Urobilinogen (<2.0) mg/dL Ur Leukocyte Esterase (Negative) - Radiology Data Radiology results: report reviewed (CT brain C-spine chest and pelvis x-ray negative for acute disease), image reviewed Disposition Clinical Impression: Weakness, Dehydration, Fall, Hypertensive urgency Disposition: ADMITTED IP TO THIS HOSP Condition: Fair Is patient prescribed a controlled substance at d/c from ED?: No Time of Disposition: 23:35
[2022-01-01 22:40] LABS: Basophils # (A) 0.1 k/uL (0-0.2); Basophils % (A) 1 %; Eosinophils # (A) 0.5 k/uL (0-0.7); Eosinophils % (A) 8 %; HCT 48.9 % (39.0-53.0); HGB 16.3 gm/dL (13.0-17.5); Lymphocytes # (A) 1.7 k/uL (1.0-4.8); Lymphocytes % (A) 26 %; MCH 32.4 pg (25.0-35.0); MCHC 33.3 g/dL (31.0-37.0); MCV 97.5 fL (80.0-100.0); Mean Platelet Volume 8.4; Monocytes # (A) 0.4 k/uL (0-1.0); Monocytes % (A) 6 %; Neutrophils # (A) 3.7 k/uL (1.3-7.7); Neutrophils % (A) 57 %; Platelet Count 174 k/uL (150-450); RBC 5.01 m/uL (4.30-5.90); RDW 12.4 % (11.5-15.5); WBC 6.5 k/uL (3.8-10.6)
[2022-01-01 22:52] LABS: ALT 16 U/L (4-49); AST 24 U/L (17-59); African American GFR (CKD) >90 (>60 ml/min/1.73 sqM); Albumin 4.2 g/dL (3.5-5.0); Alkaline Phosphatase 112 U/L (38-126); Anion Gap 8 mmol/L; Blood Urea Nitrogen 13 mg/dL (9-20); Calcium 9.1 mg/dL (8.4-10.2); Carbon Dioxide 24 mmol/L (22-30); Chloride 100 mmol/L (98-107); Glucose 106 mg/dL (74-99); Magnesium 1.9 mg/dL (1.6-2.3); Non-African American GFR(CKD) 84 (>60 ml/min/1.73 sqM); Phosphorus 3.7 mg/dL (2.5-4.5); Potassium 4.7 mmol/L (3.5-5.1); Sodium 132 mmol/L (137-145); Total Protein 6.8 g/dL (6.3-8.2)
[2022-01-01 22:58] LABS: INR 1.2 (<1.2); Prothrombin Time 12.4 sec (9.0-12.0)
--- NOTE | 2022-01-01 23:00 | XR ---
EXAMINATION TYPE: XR chest 1V DATE OF EXAM: 01/01/2022 COMPARISON: 05/26/2021 HISTORY: Fall. Chest pain TECHNIQUE: Single view FINDINGS: There is mild coarsening of the interstitial markings. Thoracic aorta is atheromatous. Ther e is left axillary pacemaker. No pleural effusion there are chest leads. No heart failure. IMPRESSION: Interstitial pulmonary densities suggestive of pulmonary fibrosis. The inspiration is dec reased compared to old exam. No heart failure seen.
--- NOTE | 2022-01-01 23:02 | XR ---
EXAMINATION TYPE: XR pelvis AP view DATE OF EXAM: 01/01/2022 COMPARISON: 02/06/2018 HISTORY: Fall. Pain TECHNIQUE: Single view FINDINGS: The pelvic ring is intact. There is narrowing of the left hip joint space with acetabular s purring. No fracture seen. Sacroiliac joints are intact. There is extensive vascular calcification. IMPRESSION: Osteoarthritis in the left hip joint. No fracture. No change.
--- NOTE | 2022-01-01 23:16 | CT ---
EXAMINATION TYPE: CT brain cspine wo con DATE OF EXAM: 01/01/2022 COMPARISON: 05/26/2021 HISTORY: fall, head injury.pt states he has h/o cervical fx years ago, unsure when. CT DLP: 1460.5 mGycm Automated exposure control for dose reduction was used. Images of the brain and cervical spine obtained with no contrast. There is diffuse cerebral atrophy. There is no mass effect or midline shift. No sign of intracranial hemorrhage. There is hypodensity in the periventricular white matter. Calvarium is intact. There is n ormal aeration of the mastoid sinuses. The cervical vertebra show fairly normal alignment. There is old fracture of the odontoid process. Th ere is fusion of the odontoid with the anterior arch of C1 vertebra. There is hypertrophic multilevel cervical facet arthropathy no compression fracture. IMPRESSION: Cerebral atrophy and chronic small vessel ischemia. No acute intracranial abnormality. Brain unchange d compared to 12-02 exam. 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 No significant displacement.
[2022-01-01 23:21] LABS: Appearance,Urine Clear (Clear); Bilirubin,Urine Negative (Negative); Blood,Urine Negative (Negative); Color,Urine Light Yellow; Glucose,Urine (UA) Negative (Negative); Ketones,Urine Negative (Negative); Leukocyte Esterase,Urine Negative (Negative); Nitrite,Urine Negative (Negative); Protein,Urine Negative (Negative); Specific Gravity,Urine 1.008 (1.001-1.035); Urobilinogen,Urine <2.0 mg/dL (<2.0)
[2022-01-01] MEDS ORDERED: MORPHINE SULFATE 4 MG/ML SYRINGE IV PRN (23:46)
[2022-01-01] MEDS ORDERED: NALOXONE 0.4 MG/ML 1 ML VIAL IV PRN (23:46)
[2022-01-02 05:00] LABS: Basophils # (A) 0.1 k/uL (0-0.2); Basophils % (A) 1 %; Eosinophils # (A) 0.6 k/uL (0-0.7); Eosinophils % (A) 7 %; HCT 45.9 % (39.0-53.0); HGB 15.7 gm/dL (13.0-17.5); Lymphocytes # (A) 1.9 k/uL (1.0-4.8); Lymphocytes % (A) 25 %; MCH 33.4 pg (25.0-35.0); MCHC 34.1 g/dL (31.0-37.0); MCV 97.9 fL (80.0-100.0); Mean Platelet Volume 8.1; Monocytes # (A) 0.5 k/uL (0-1.0); Monocytes % (A) 6 %; Neutrophils # (A) 4.5 k/uL (1.3-7.7); Neutrophils % (A) 59 %; Platelet Count 169 k/uL (150-450); RBC 4.69 m/uL (4.30-5.90); RDW 12.5 % (11.5-15.5); WBC 7.6 k/uL (3.8-10.6)
[2022-01-02 05:15] LABS: ALT 16 U/L (4-49); AST 20 U/L (17-59); African American GFR (CKD) >90 (>60 ml/min/1.73 sqM); Albumin 3.7 g/dL (3.5-5.0); Alkaline Phosphatase 99 U/L (38-126); Anion Gap 5 mmol/L; Blood Urea Nitrogen 10 mg/dL (9-20); Calcium 8.5 mg/dL (8.4-10.2); Carbon Dioxide 24 mmol/L (22-30); Chloride 107 mmol/L (98-107); Glucose 99 mg/dL (74-99); Non-African American GFR(CKD) 87 (>60 ml/min/1.73 sqM); Potassium 4.2 mmol/L (3.5-5.1); Sodium 136 mmol/L (137-145); Total Bilirubin 0.9 mg/dL (0.2-1.3); Total Protein 5.9 g/dL (6.3-8.2)
[2022-01-02] MEDS: SODIUM CHLORIDE 0.9% 1,000 ML IV SCH ×2 (08:06→12:33)
[2022-01-02] MEDS ORDERED: NITROGLYCERIN SL TABS 0.4 MG TAB SUBLINGUAL PRN (09:04)
[2022-01-02] MEDS: ATORVASTATIN 80 MG TAB PO SCH (09:58)
[2022-01-02] MEDS: SPIRONOLACTONE 25 MG TAB PO SCH (09:58)
[2022-01-02] MEDS: ASPIRIN 81 MG PO SCH (09:58)
[2022-01-02] MEDS: hydrALAZINE HCL 20 MG/ML 1 ML VIAL IVP PRN ×2 (12:02→18:28)
[2022-01-02] MEDS ORDERED: lisinopriL 5 MG TAB PO STA (13:38)
[2022-01-02] MEDS ORDERED: SENNOSIDES 8.6 MG TAB PO PRN (18:59)
[2022-01-02] MEDS ORDERED: ACETAMINOPHEN TAB 325 MG TAB PO PRN (19:01)
[2022-01-02] MEDS ORDERED: DILTIAZEM DRIP BOLUS FROM BAG 1 MG SOLN IV ONE (19:54)
[2022-01-02] MEDS ORDERED: ONDANSETRON 4 MG/2 ML VIAL IVP PRN (19:55)
[2022-01-02] MEDS: LOSARTAN 50 MG TAB PO SCH (19:55)
[2022-01-02] MEDS ORDERED: DILTIAZEM 125 MG in SODIUM CHLORIDE 0.9% 100 ML IV SCH (20:00)
[2022-01-02] MEDS: METOPROLOL SUCCINATE (ER) 50 MG TAB.ER.24H PO SCH (20:27)
[2022-01-02] MEDS ORDERED: METOPROLOL TARTRATE 25 MG TAB PO SCH (21:00)
[2022-01-02] MEDS ORDERED: lisinopriL 5 MG TAB PO SCH (21:00)
[2022-01-02 23:31] LABS: Magnesium 1.9 mg/dL (1.6-2.3); Potassium 4.3 mmol/L (3.5-5.1)
[2022-01-03] MEDS: SODIUM CHLORIDE 0.9% 1,000 ML IV SCH ×2 (07:04→17:24)
[2022-01-03] MEDS: PANTOPRAZOLE 40 MG TABLET PO SCH (07:05)
[2022-01-03] MEDS ORDERED: ENOXAPARIN 40 MG/0.4 ML SYRINGE SQ SCH (09:00)
[2022-01-03] MEDS: LORATADINE 10 MG TAB PO SCH (09:51)
[2022-01-03] MEDS: LOSARTAN 50 MG TAB PO SCH (09:51)
[2022-01-03] MEDS: ASPIRIN 81 MG PO SCH (09:51)
[2022-01-03] MEDS: ATORVASTATIN 80 MG TAB PO SCH (09:51)
[2022-01-03] MEDS: SPIRONOLACTONE 25 MG TAB PO SCH (09:51)
[2022-01-03] MEDS: AMIODARONE 200 MG TAB PO SCH ×2 (12:57→20:58)
--- NOTE | 2022-01-03 13:14 | P.CRDCN ---
History of Present Illness Consult date: 01/03/22 History of present illness: General the patient has a known history of hypertension, coronary artery disease status post angioplasty ischemic cardiomyopathy status post AICD, hyperlipidemia, proximal atrial fibrillation who presented to the ER with complaints of elevated blood pressure. We've been consulted see the patient for new onset atrial fibrillation with RVR. Patient follows with Dr. Kearns in the office. Patient initially was admitted for hypertensive urgency weakness and increased falling at home. Initially his blood pressure was 208/105. While in the hospital patient was having a bowel movement believed to have a vasovagal episode his AICD went off and patient was then found to be in atrial fibrillation. Patient's AICD was interrogated. Patient was started on a Cardizem drip and shortly after converted to sinus rhythm. His initial EKG showed sinus rhythm with PACs PVCs left axis deviation and possible anteroseptal infarct. Today on telemetry he remains in sinus rhythm. His blood pressure is well-controlled today 120/72. Patient is a candidate for anticoagulation due to frequent falls. Will obtain an echocardiogram. Patient seen today resting comfortably in bed in no signs of acute distress, he denies chest pain or increased shortness of breath. He denies his any further episodes of his AICD will. He does not believe he has ever had atrial fibrillation in the past Review of Systems REVIEW OF SYSTEMS At the time of my exam: CONSTITUTIONAL: Denies fever or chills. EYES: Negative for vision changes ENT: Negative for hearing loss CARDIOVASCULAR: Denies chest pain, shortness of breath, diaphoresis, orthopnea, PND or palpitations. VASCULAR: Denies edema RESPIRATORY: Denies cough. GASTROINTESTINAL: Denies abdominal pain, diarrhea, constipation, nausea or vomiting. MUSCULOSKELETAL: Denies myalgias. NEUROLOGIC: Denies numbness, tingling, headache or weakness. ENDOCRINE: Denies fatigue, weight change, polydipsia or polyurina. GENITOURINARY: Denies burning, hematuria or urgency with micturation. HEMATOLOGIC: Denies history of anemia or bleeding. DERMATOLOGY: Denies rash or skin sores PSYCH: Negative for depression or hallucinations. Past Medical History Past Medical History: Coronary Artery Disease (CAD), Heart Failure, Eye Disorder, GERD/Reflux, GI Bleed, Hyperlipidemia, Hypertension, Myocardial Infarction (AK), Osteoarthritis (OA), Prostate Disorder, Thyroid Disorder Additional Past Medical History / Comment(s): cardiomyopathy, DENGENERATIVE ARTHRITIS, MACULAR DEGENERATION AND CATARACTS,GI BLEED 2011, fall /facial inj/bruing/broken front teeth,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 Last Myocardial Infarction Date:: History of Any Multi-Drug Resistant Organisms: None Reported Past Surgical History: Adenoidectomy, AICD, Appendectomy, Cholecystectomy, Heart Catheterization, Heart Catheterization With Stent, Joint Replacement, Orthopedic Surgery, Pacemaker, Tonsillectomy Additional Past Surgical History / Comment(s): AICD, Defrillation Testing 04/02/14, TOTAL LT/RT KNEE ARTHROPLASTY, bilateral CATARACTS, bilateral carpal tunnel releases, PARTIAL THYROIDECTOMY due to nodules, trigger fingers,heart stents x3 Past Anesthesia/Blood Transfusion Reactions: No Reported Reaction Additional Past Anesthesia/Blood Transfusion Reaction / Comment(s): wakes up during surgery,no hx blood transfusion Date of Last Stent Placement:: Type of Cardiac Device: AICD Device Placement Date:: 12-04-13 [employer] Past Psychological History: No Psychological Hx Reported Smoking Status: Never smoker Past Alcohol Use History: None Reported Past Drug Use History: None Reported - Past Family History Son(s) Family Medical History: No Reported History Father Family Medical History: Cancer, Coronary Artery Disease (CAD), CVA/TIA, Diabetes Mellitus Additional Family Medical History / Comment(s): CAROTID ARTERY BLOCKAGE.SX IN 1988 Mother Family Medical History: Unable to Obtain Additional Family Medical History / Comment(s): AT AGE 89- UNK HX Daughter(s) Family Medical History: Cancer (Patient has 2 adopted daughters and he has been under a lot of stress with his adopted daughter whom her left taking her cars with him.) BROTHER Family Medical History: Cancer Additional Family Medical History / Comment(s): BONE, PANCREATIC Medications and Allergies Home Medications Medication Instructions Recorded Confirmed Type Spironolactone [Aldactone] 12.5 mg PO DAILY 12/03/16 01/02/22 History Aspirin [Adult Low Dose Aspirin EC] 81 mg PO DAILY 11/16/17 01/02/22 History Atorvastatin [Lipitor] 80 mg PO DAILY 03/03/21 01/02/22 History Metoprolol Tartrate [Lopressor] 25 mg PO HS 03/03/21 01/02/22 History Nitroglycerin Sl Tabs [Nitrostat] 0.4 mg SL Q5M PRN 03/03/21 01/02/22 History Omeprazole 40 mg PO DAILY 03/03/21 01/02/22 History Cetirizine HCl [Zyrtec] 10 mg PO DAILY 01/02/22 01/02/22 History lisinopriL [Zestril] 5 mg PO BID 01/02/22 01/02/22 History Allergies Allergy/AdvReac Type Severity Reaction Status Date / Time amlodipine besylate Allergy Rash/Hives Verified 01/02/22 08:35 [From Norvasc] isosorbide [From Imdur] Allergy Unknown Verified 01/02/22 08:35 Latex, Natural Rubber Allergy Rash/Hives Verified 01/02/22 08:35 Physical Exam Vitals: Vital Signs Temp Pulse Resp BP Pulse Ox 01/03/22 08:57 96 01/03/22 08:00 63 18 01/03/22 07:48 98.1 F 63 18 120/72 94 L 01/03/22 02:00 98.1 F 65 16 100/69 96 01/03/22 00:01 97.6 F 54 L 16 100/71 95 01/02/22 20:32 97.7 F 150 H 19 116/68 95 01/02/22 19:45 168 H 01/02/22 19:08 98.8 F 121 H 19 172/87 96 01/02/22 18:30 103 H 18 174/87 95 01/02/22 18:25 100 18 191/111 96 01/02/22 17:30 97 177/98 97 01/02/22 15:15 97.6 F 84 17 177/86 98 Intake and Output 01/02/22 01/03/22 01/03/22 22:59 06:59 14:59 Output Total 320 200 Balance -320 -200 Output: Urine 320 200 General: The patient is awake and alert, in no distress, and does not appear acutely ill. Skin: Skin is warm and dry and no rashes or lesions are noted. Eye: Pupils are equal, round and reactive to light, extra-ocular movements are intact; there is normal conjunctiva bilaterally. Ears, nose, mouth and throat: There are moist mucous membranes and no oral lesions. Neck: The neck is supple, there is no tenderness or JVD. Cardiovascular: There is irregular regular rate and rhythm. No murmur, rub or gallop is appreciated. Respiratory: Lungs are clear to auscultation, respirations are non-labored, breath sounds are equal. Gastrointestinal: Soft, non-distended, non-tender abdomen without masses or organomegaly noted. There is no rebound or guarding present. Bowel sounds are unremarkable. Back: There is no tenderness to palpation in the midline. There is no obvious deformity. Musculoskeletal: Normal ROM, no tenderness, There is no pedal edema. There is no calf tenderness or swelling. Extremities: Mild bilateral pitting edema Vascular: Femoral pulse is normal. Posterior tibial pulses are normal .Dorsalis pedis is palpable. Neurological: CN II-XII intact. There are no obvious motor or sensory deficits. Speech is normal. Psychiatric: Cooperative, appropriate mood & affect, normal judgment Results 01/02/22 04:45 01/02/22 22:49 Comprehensive Metabolic Panel 01/02/22 Range/Units 22:49 Potassium 4.3 (3.5-5.1) mmol/L Current Medications Generic Name Dose Route Start Last Admin Trade Name Freq PRN Reason Stop Dose Admin Acetaminophen 650 mg 01/02/22 19:01 01/02/22 20:36 Acetaminophen Tab 325 Mg Tab PO 650 mg Q6HR PRN Administration Fever and/ or Pain Amiodarone HCl 400 mg 01/03/22 12:45 01/03/22 12:57 Amiodarone 200 Mg Tab PO 400 mg BID JONO Administration Aspirin 81 mg 01/02/22 09:15 01/03/22 09:51 Aspirin 81 Mg PO 81 mg DAILY JONO Administration Atorvastatin Calcium 80 mg 01/02/22 09:15 01/03/22 09:51 Atorvastatin 80 Mg Tab PO 80 mg DAILY JONO Administration Hydralazine HCl 10 mg 01/02/22 18:58 Hydralazine Hcl 20 Mg/Ml 1 Ml Vial IVP Q2HR PRN Blood Pressure - High Sodium Chloride 1,000 mls @ 75 mls/hr 01/01/22 23:45 01/03/22 07:04 Saline 0.9% IV 75 mls/hr .[id number] JONO Administration Diltiazem HCl 125 mg/ Sodium 125 mls @ 5 mls/hr 01/02/22 20:00 01/02/22 20:29 Chloride IV 5 mg/hr .Q24H JONO 5 mls/hr Administration 5 MG/HR Loratadine 10 mg 01/03/22 09:00 01/03/22 09:51 Loratadine 10 Mg Tab PO 10 mg DAILY JONO Administration Losartan Potassium 100 mg 01/02/22 19:00 01/03/22 09:51 Losartan 50 Mg Tab PO 100 mg DAILY JONO Administration Metoprolol Succinate 50 mg 01/02/22 21:00 01/02/22 20:27 Metoprolol Succinate (Er) 50 Mg Tab.Er.24h PO 50 mg HS JONO Administration Morphine Sulfate 4 mg 01/01/22 23:46 Morphine Sulfate 4 Mg/Ml Syringe IV Q4HR PRN Severe Pain (Scale 7 to 10) Naloxone HCl 0.2 mg 01/01/22 23:46 Naloxone 0.4 Mg/Ml 1 Ml Vial IV Q2M PRN Opioid Reversal Nitroglycerin 0.4 mg 01/02/22 09:04 Nitroglycerin Sl Tabs 0.4 Mg Tab SUBLINGUAL Q5M PRN Chest Pain Ondansetron HCl 4 mg 01/02/22 19:55 01/03/22 00:16 Ondansetron 4 Mg/2 Ml Vial IVP 4 mg Q6HR PRN Administration Nausea And Vomiting Pantoprazole Sodium 40 mg 01/03/22 07:30 01/03/22 07:05 Pantoprazole 40 Mg Tablet PO 40 mg [id number] JONO Administration Senna 17.2 mg 01/02/22 18:59 Sennosides 8.6 Mg Tab PO HS PRN Constipation Spironolactone 12.5 mg 01/02/22 09:15 01/03/22 09:51 Spironolactone 25 Mg Tab PO 12.5 mg DAILY JONO Administration Intake and Output 01/02/22 01/03/22 01/03/22 22:59 06:59 14:59 Output Total 320 200 Balance -320 -200 Output: Urine 320 200 01/02/22 04:45 01/02/22 22:49 Assessment and Plan Assessment: Proximal atrial fibrillation with RVR Hypertension Coronary artery disease status post angioplasty Cardiomyopathy status post AICD Plan: Will obtain 2-D echocardiogram Patient is not a candidate for anticoagulation due to multiple frequent falls. Continue with aspirin Toprol 50 mg daily Continue with telemetry monitoring Further recommendations based on clinical course The above impression and plan of care have been discussed and directed by the signing physician. Alanis José, nurse practitioner, acting as scribe for signing physician.
[2022-01-03] MEDS: METOPROLOL SUCCINATE (ER) 50 MG TAB.ER.24H PO SCH (20:58)
[2022-01-04] MEDS: hydrALAZINE HCL 20 MG/ML 1 ML VIAL IVP PRN ×2 (01:07→06:39)
[2022-01-04] MEDS: PANTOPRAZOLE 40 MG TABLET PO SCH (06:23)
[2022-01-04] MEDS: LORATADINE 10 MG TAB PO SCH (09:46)
[2022-01-04] MEDS: LOSARTAN 50 MG TAB PO SCH (09:46)
[2022-01-04] MEDS: SPIRONOLACTONE 25 MG TAB PO SCH (09:46)
[2022-01-04] MEDS: AMIODARONE 200 MG TAB PO SCH ×2 (09:47→20:27)
[2022-01-04] MEDS: ATORVASTATIN 80 MG TAB PO SCH (09:47)
[2022-01-04] MEDS: ASPIRIN 81 MG PO SCH (09:47)
--- NOTE | 2022-01-04 11:19 | CA ---
Transthoracic Echo Report Name: Didier Carrillo Age: 86 Gender: M : 1935 Exam Date: 01/03/2022 14:52 Exam Location: [place] [facility] Ht (in): 68 Wt (lb): 200 Ordering Physician: Alanis José Attending/Referring Phys: [employer] Supervisor Radha Barcenas RDCS Procedure CPT: Indications: a-fib Cardiac Hx: Technical Quality: Very technically difficult study Contrast 1: Lumason Total Dose (mL): 4 Contrast 2: Total Dose (mL): MEASUREMENTS (Male / Female) Normal Values 2D ECHO LA Volume 156.5 cm??? 18 - 58 / 22 - 52 cm??? DOPPLER AV Peak Velocity 139.6 cm/s AV Peak Gradient 7.8 mmHg AI Peak Velocity 299.1 cm/s AI Peak Gradient 35.8 mmHg AI Pressure Half Time 654.8 ms LVOT Peak Velocity 92.0 cm/s LVOT Peak Gradient 3.4 mmHg MV Area PHT 1.9 cm??? Mitral E Point Velocity 41.6 cm/s Mitral A Point Velocity 89.8 cm/s Mitral E to A Ratio 0.5 MV Deceleration Time 398.2 ms MV E' Velocity 3.2 cm/s Mitral E to MV E' Ratio 12.9 FINDINGS Left Ventricle Reduced global left ventricular systolic function. Left ventricular ejection fraction is estimated at 25 %. Right Ventricle Right ventricle not well visualized. Right Atrium Right atrium not well visualized. Left Atrium Severely increased left atrial volume. Mitral Valve Mitral valve thickened. Mild mitral annular calcification. Aortic Valve No aortic stenosis. Mild aortic regurgitation. Tricuspid Valve Mild tricuspid regurgitation. Pulmonic Valve Pulmonic valve not well visualized. Pericardium No pericardial effusion. Aorta Aortic root and proximal ascending aorta not well visualized. CONCLUSIONS Severely diminished LV systolic function Previewed by: Dr. Gianni Langston MD (Electronically Signed) Final Date: 04 January 2022 11:18
--- NOTE | 2022-01-04 12:07 | P.PN ---
Subjective Progress Note Date: 01/04/22 Patient seen today doing well resting comfortably in bed in no signs of acute distress. He denies increased shortness of breath or chest pain. He remains sinus rhythm on the monitor. Patient's pacer was interrogated yesterday after reviewing patient had an episode of ventricular fibrillation which required a shock by the pacemaker. His echocardiogram showed severely decreased LV function with an ejection fraction of 25% mild aortic regurgitation and mild tricuspid regurgitation. He remains not a candidate for anticoagulation due to frequent falls patient's blood pressure was initially elevated this morning. Once he was given his morning dose of medication blood pressure was well continue will continue with amiodarone, aspirin, Lipitor, hydralazine, losartan, metoprolol, spironolactone. Objective - Vital Signs Vital signs: Vital Signs Temp 97.2 F L 01/04/22 08:00 Pulse 68 01/04/22 08:00 Resp 18 01/04/22 08:00 BP 129/69 01/04/22 08:00 Pulse Ox 97 01/04/22 08:55 FiO2 Intake & Output 01/03/22 01/04/22 01/04/22 18:59 06:59 18:59 Intake Total 150 150 Output Total 200 100 Balance -50 50 Intake: Intake, IV Titration 150 Amount Sodium Chloride 0.9% 1, 150 000 ml @ 75 mls/hr IV . [id number] [facility] Rx#:[id number] Oral 150 Output: Urine 200 100 - Exam PHYSICAL EXAM: VITAL SIGNS: Reviewed. GENERAL: Well-developed in no acute distress. HEENT: Head is normocephalic. Pupils are equal, round. Sclerae anicteric. Mucous membranes of the mouth are moist. NECK: Supple. No JVD or thyromegaly RESPIRATORY: Respirations even and unlabored. Lungs diminished to auscultation bilaterally. CARDIO: Regular rate and rhythm. S1 and S2 heard. No murmur or gallops. EXTREMITIES: Normal range of motion. No clubbing or cyanosis. Peripheral pulses intact. Negative for bilateral lower extremity edema NEURO: Orientated to person, time, mood is appropriate - Labs CBC & Chem 7: 01/04/22 11:39 01/04/22 11:39 Assessment and Plan Assessment: Proximal atrial fibrillation with RVR Hypertension Coronary artery disease status post angioplasty Cardiomyopathy status post AICD Plan: 2-D echocardiogram obtained and reviewed Patient is not a candidate for anticoagulation due to multiple frequent falls. Continue with aspirin Toprol Continue with telemetry monitoring Further recommendations based on clinical course The above impression and plan of care have been discussed and directed by the signing physician. Alanis José, nurse practitioner, acting as scribe for signing physician.
[2022-01-04 12:12] LABS: Basophils # (A) 0.1 k/uL (0-0.2); Basophils % (A) 1 %; Eosinophils # (A) 0.4 k/uL (0-0.7); Eosinophils % (A) 5 %; HCT 48.8 % (39.0-53.0); HGB 16.5 gm/dL (13.0-17.5); Lymphocytes # (A) 1.4 k/uL (1.0-4.8); Lymphocytes % (A) 18 %; MCH 33.4 pg (25.0-35.0); MCHC 33.9 g/dL (31.0-37.0); MCV 98.5 fL (80.0-100.0); Mean Platelet Volume 8.4; Monocytes # (A) 0.5 k/uL (0-1.0); Monocytes % (A) 6 %; Neutrophils # (A) 5.4 k/uL (1.3-7.7); Neutrophils % (A) 69 %; Platelet Count 171 k/uL (150-450); RBC 4.96 m/uL (4.30-5.90); RDW 12.6 % (11.5-15.5); WBC 7.9 k/uL (3.8-10.6)
[2022-01-04 12:34] LABS: ALT 18 U/L (4-49); AST 26 U/L (17-59); African American GFR (CKD) >90 (>60 ml/min/1.73 sqM); Albumin 3.7 g/dL (3.5-5.0); Alkaline Phosphatase 96 U/L (38-126); Anion Gap 7 mmol/L; Blood Urea Nitrogen 26 mg/dL (9-20); Carbon Dioxide 22 mmol/L (22-30); Chloride 105 mmol/L (98-107); Glucose 111 mg/dL (74-99); Magnesium 1.9 mg/dL (1.6-2.3); Non-African American GFR(CKD) 79 (>60 ml/min/1.73 sqM); Potassium 4.5 mmol/L (3.5-5.1); Sodium 134 mmol/L (137-145); Total Bilirubin 1.1 mg/dL (0.2-1.3); Total Protein 6.1 g/dL (6.3-8.2)
--- NOTE | 2022-01-04 12:44 | P.HPIM ---
History of Present Illness H&P Date: 01/02/22 HISTORY OF PRESENT ILLNESS: This is an 85-year-old male with a previous medical history s ignificant for hypertension and hypertensive cardio vascular disease, hyperlipidemia, paroxysmal atrial fibrillation, coronary artery disease with ischemic cardiomyopathy, enlarged prostate, history of AICD, patient presented to the emergency department at [facility] yesterday with increased pain in the left side of his face after he was trying to ambulate using his walker and all of a sudden he fell and hit his left side of his head to the fridge, patient was in treatment as amount of pain and he was feeling some pain in the back and he was having some headache as well, he checks his blood pressure and his blood pressure was quite elevated, his daughter came and checked his blood p ressure and it was quite high as well so he ended up coming to the ER at [facility] for evaluation his initial evaluation with a computed tomography scan of the head and cervical spine showed evidence of the brain atrophy with small vessel disease, and 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, pelvic x-ray did not show any evidence of acute fracture with left hip osteoarthritis, chest x-ray showed interstitial changes without acute disease, EKG showed normal/rhythm with left axis deviation without evidence of acute ischemic changes, patient was quite hypertensive in the emergency department with a systolic blood pressure of 205/114, he did receive labetalol in the emergency department without any relief, patient was admitted has been for evaluation, he was started on hydralazine 10 mg IV push every 4 hours as needed increase his Toprol to 50 mg at bedtime along with increasing lisinopril to 5 mg orally twice every day, patient remained hypertensive, and th he was admitted to the hospital for further evaluation and treatment. REVIEW OF SYSTEMS: Constitutional: No documented fever, no chills, no night sweats. No weight change. Positive for weakness, fatigue no lethargy. No daytime sleepiness. HEENT: Positive for headache. Positive blurred vision or double vision, no loss of vision. Positive for loss of Hearing, no ringing in the ears, no dizziness. Positive for nasal crust or congestion. No epistaxis. No sore throat. Lungs: No shortness of breath, no cough, no sputum production. No wheezing. Reports dyspnea with activity. Cardiovascular: No chest pain, no lower extremity edema. No palpitations. No paroxysmal nocturnal dyspnea. No orthopnea. No lightheadedness or dizziness. No syncopal episodes. Abdominal: Reports abdominal pain. No nausea, vomiting. No diarrhea. positive for constipation. No bloody or tarry stools reports loss of appetite. Genitourinary: No dysuria, increased frequency, urgency. No urinary retention. Musculoskeletal: No myalgias. Positive for muscle weakness, no gait dysfunction, no frequent falls. No back pain. No neck pain. Integumentary: no skin rash Neurologic: No aphasia. No facial droop. No change in mentation. No head injury. No headache. No paralysis. No paresthesia. Psychiatric: No depression. No anxiety. No mood swings. Endocrine: No abnormal blood sugars. No weight change. PAST MEDICAL HISTORY: hypertension and hypertensive cardiovascular disease. Hyperlipidemia. Paroxysmal atrial fibrillation. Ischemic cardiopathy. Enlarged prostate with lower urinary tract symptoms. ALLERGIC rhinitis Coronary artery disease. Hard of hearing. Gait dysfunction. Amiodarone-induced thyrotoxicosis. PAST SURGICAL HISTORY: arthroscopic knee surgery. Appendectomy. Tonsillectomy and adenoidectomy. Cholecystectomy. Carpal tunnel surgery. Bilateral cataract surgery. Left heart catheterization with PCI. AICD 2013. Bilateral total knee arthroplasties. Partial thyroidectomy. SOCIAL HISTORY: patient uses followed by a pack every day from [id number], he currently lives in senior citizen apartment, he denies any alcohol ingestion, no drug use or abuse, uses a walker for ambulation FAMILY HISTORY: father at age of 90 after carotid endarterectomy, also had a history of CAD CVA and diabetes along with cancer mother at age of 89 from unknown reason patient had one brother who from pancreatic cancer with metastatic disease to the bone patient has one son who is alive and well and one daughter with adopted granddaughter. PHYSICAL EXAMINATION: General: this is an 82-year-old male who is sitting up in bed in no distress HEENT: Head is atraumatic, normocephalic, pupils were equal round reactive to light and recommendation, extraocular muscle movement were intact, sclera nonicteric, conjunctivae were pale, mucous membranes of the mouth are somewhat dry. Neck: Supple, no JVP, normal carotid upstroke bilaterally, no lymphadenopathy. Chest: Decreased breath sounds at the bases, few rhonchi, no extremity wheezes, no chest wall tenderness, no intercostal retractions. Heart: First heart sound is normal, second heart sound is normal there is systolic ejection murmur 2/6 located in the left sternal border, there is AICD in the left upper precordium. Abdomen: Soft, nontender, nondistended, positive bowel sounds. there is no h epatosplenomegaly. Extremities: There is no edema no calf tenderness DP +2 bilaterally. Neurologic examination: Patient is awake alert and oriented X 3, cranial nerves II-12 appear grossly intact, muscle power were 5 out of 5 in upper extremities and 5 out of 5 in bilateral lower extremities, deep tendon reflexes normal bilaterally. ASSESSMENT AND PLAN: 1. Accelerated hypertension with hypertensive emergency. Continue patient on hydralazine 20 mg IV push every 4 hours as needed for systolic blood pressure greater than 160, continue with Toprol-XL 50 mg at bedtime, continue with lisinopril 5 mg orally twice every day, monitor the patient blood pressure very closely discontinue IV fluid. 2. Status post a fall without evidence of acute trauma. 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 3. Hypertension and hypertensive cardiovascular disease. Continue patient on lisinopril 5 mg orally twice every day, increase Toprol XL 50 mg orally once every day him a start hydralazine 20 mg IV push every 4 hours as needed for sy stolic greater than 160. 4. Hyperlipidemia. Continue patient on atorvastatin 80 mg orally once every day. 5. CAD post-PCI with ischemic cardiomyopathy. Continue aspirin 81 mg once every day, metoprolol orally once every day, atorvastatin 80 mg orally once every day. 6. ALLERGIC rhinitis. Continue patient on loratadine 10 mg orally once every day. 7. GERD. Continue omeprazole 40 mg orally once every day as well as famotidine 40 mg at bedtime. 8. Constipation. Start the patient on lactulose 20 g orally twice every day, continue Senokot-s 2 tablet orally bedtime may use MiraLAX 17 g in 8 ounces water as needed. 9. Enlarged prostate. Continue tamsulosin 0.4 g orally once every day. 10. DVT prophylaxis. Continue patient on Lovenox 40 mg subcutaneously every 24 hours. 11. GI prophylaxis. Continue PPI. 12. Admit to inpatient. Estimate a length of stay 2 midnights. 13. Full code. Past Medical History Past Medical History: Coronary Artery Disease (CAD), Heart Failure, Eye Disorder, GERD/Reflux, GI Bleed, Hyperlipidemia, Hypertension, Myocardial Infarction (RI), Osteoarthritis (OA), Prostate Disorder, Thyroid Disorder Additional Past Medical History / Comment(s): cardiomyopathy, DENGENERATIVE ARTHRITIS, MACULAR DEGENERATION AND CATARACTS,GI BLEED 2011, fall 11-24-16/facial inj/bruing/broken front teeth,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 Last Myocardial Infarction Date:: History of Any Multi-Drug Resistant Organisms: None Reported Past Surgical History: Adenoidectomy, AICD, Appendectomy, Cholecystectomy, Heart Catheterization, Heart Catheterization With Stent, Joint Replacement, Orthopedic Surgery, Pacemaker, Tonsillectomy Additional Past Surgical History / Comment(s): AICD, Defrillation Testing 04/02/14, TOTAL LT/RT KNEE ARTHROPLASTY, bilateral CATARACTS, bilateral carpal tunnel releases, PARTIAL THYROIDECTOMY due to nodules, trigger fingers,heart stents x3 Past Anesthesia/Blood Transfusion Reactions: No Reported Reaction Additional Past Anesthesia/Blood Transfusion Reaction / Comment(s): wakes up during surgery,no hx blood transfusion Date of Last Stent Placement:: Type of Cardiac Device: AICD Device Placement Date:: 12-04-13 [employer] Past Psychological History: No Psychological Hx Reported Smoking Status: Never smoker Past Alcohol Use History: None Reported Past Drug Use History: None Reported - Past Family History Son(s) Family Medical History: No Reported History Father Family Medical History: Cancer, Coronary Artery Disease (CAD), CVA/TIA, Diabetes Mellitus Additional Family Medical History / Comment(s): CAROTID ARTERY BLOCKAGE.SX IN 1988 Mother Family Medical History: Unable to Obtain Additional Family Medical History / Comment(s): AT AGE 89- UNK HX Daughter(s) Family Medical History: Cancer (Patient has 2 adopted daughters and he has been under a lot of stress with his adopted daughter whom her left taking her cars with him.) BROTHER Family Medical History: Cancer Additional Family Medical History / Comment(s): BONE, PANCREATIC Medications and Allergies Home Medications Medication Instructions Recorded Confirmed Type Spironolactone [Aldactone] 12.5 mg PO DAILY 12/03/16 01/02/22 History Aspirin [Adult Low Dose Aspirin EC] 81 mg PO DAILY 11/16/17 01/02/22 History Atorvastatin [Lipitor] 80 mg PO DAILY 03/03/21 01/02/22 History Metoprolol Tartrate [Lopressor] 25 mg PO HS 03/03/21 01/02/22 History Nitroglycerin Sl Tabs [Nitrostat] 0.4 mg SL Q5M PRN 03/03/21 01/02/22 History Omeprazole 40 mg PO DAILY 03/03/21 01/02/22 History Cetirizine HCl [Zyrtec] 10 mg PO DAILY 01/02/22 01/02/22 History lisinopriL [Zestril] 5 mg PO BID 01/02/22 01/02/22 History Allergies Allergy/AdvReac Type Severity Reaction Status Date / Time amlodipine besylate Allergy Rash/Hives Verified 01/02/22 08:35 [From Norvasc] isosorbide [From Imdur] Allergy Unknown Verified 01/02/22 08:35 Latex, Natural Rubber Allergy Rash/Hives Verified 01/02/22 08:35 Physical Exam Vitals: Vital Signs Temp Pulse Resp BP Pulse Ox 01/02/22 07:52 64 18 185/98 96 01/02/22 04:44 87 18 179/92 96 01/02/22 02:01 86 16 155/96 97 01/02/22 00:01 82 16 191/95 95 01/01/22 21:56 81 F L 80 18 208/105 96 Intake and Output 01/01/22 01/02/22 01/02/22 22:59 06:59 14:59 Other: Weight 90.718 kg Results CBC & Chem 7: 01/04/22 11:39 01/04/22 11:39 Labs: Abnormal Lab Results - Last 24 Hours (Table) 01/01/22 01/01/22 01/02/22 Range/Units 22:20 22:20 04:45 PT 12.4 H (9.0-12.0) sec INR 1.2 H (<1.2) Sodium 132 L 136 L (137-145) mmol/L Glucose 106 H (74-99) mg/dL Total Protein 5.9 L (6.3-8.2) g/dL
--- NOTE | 2022-01-04 12:54 | P.PN ---
Subjective Progress Note Date: 01/03/22 HISTORY OF PRESENT ILLNESS: This is an 85-year-old male with a previous medical history signifi cant for hypertension and hypertensive cardio vascular disease, hyperlipidemia, paroxysmal atrial fibrillation, coronary artery disease with ischemic cardiomyopathy, enlarged prostate, history of AICD, patient presented to the emergency department at [facility] yesterday with increased pain in the left side of his face after he was trying to ambulate using his walker and all of a sudden he fell and hit his left side of his head to the fridge, patient was in treatment as amount of pain and he was feeling some pain in the back and he was having some headache as well, he checks his blood pressure and his blood pressure was quite elevated, his daughter came and checked his blood pressure and it was quite high as well so he ended up coming to the ER at [facility] for evaluation his initial evaluation with a computed tomography scan of the head and cervical spine showed evidence of the brain atrophy with small vessel disease, and 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, pelvic x-ray did not show any evidence of acute fracture with left hip osteoarthritis, chest x-ray showed interstitial changes without acute disease, EKG showed normal/rhythm with left axis deviation without evidence of acute ischemic changes, patient was quite hypertensive in the emergency department with a systolic blood pressure of 205/114, he did receive labetalol in the e mergency department without any relief, patient was admitted has been for evaluation, he was started on hydralazine 10 mg IV push every 4 hours as needed increase his Toprol to 50 mg at bedtime along with increasing lisinopril to 5 mg orally twice every day, patient remained hypertensive, and th he was admitted to the hospital for further evaluation and treatment. 01/03: Patient developed to have yesterday an episode of atrial flutter ablation with rapid response, his defibrillator was activated by he was in the bathroom trying to have a bowel movement, patient was transferred to stepdown unit, patient was seen in consultation by cardiology is defibrillator was interrogated and it did show one episode of ventricular fibrillation, he was placed on amiodarone 400 mg orally twice every day, his beta mitch was increased to 50 mg once every day, he has been maintained on baby aspirin 81 mg once every day, discontinue lisinopril and start the patient on losartan 100 mg orally once ever y day, we'll continue to monitor the patient very closely. REVIEW OF SYSTEMS: Constitutional: No documented fever, no chills, no night sweats. No weight change. Positive for weakness, fatigue no lethargy. No daytime sleepiness. HEENT: Positive for headache. Positive blurred vision or double vision, no loss of vision. Positive for loss of Hearing, no ringing in the ears, no dizziness. Positive for nasal crust or congestion. No epistaxis. No sore throat. Lungs: No shortness of breath, no cough, no sputum production. No wheezing. Reports dyspnea with activity. Cardiovascular: No chest pain, no lower extremity edema. No palpitations. No paroxysmal nocturnal dyspnea. No orthopnea. No lightheadedness or dizziness. No syncopal episodes. Abdominal: Reports abdominal pain. No nausea, vomiting. No diarrhea. positive for constipation. No bloody or tarry stools reports loss of appetite. Genitourinary: No dysuria, increased frequency, urgency. No urinary retention. Musculoskeletal: No myalgias. Positive for muscle weakness, no gait dysfunction, no frequent falls. No back pain. No neck pain. Integumentary: no skin rash Neurologic: No aphasia. No facial droop. No change in mentation. No head injury. No headache. No paralysis. No paresthesia. Psychiatric: No depression. No anxiety. No mood swings. Endocrine: No abnormal blood sugars. No weight change. PHYSICAL EXAMINATION: General: this is an 82-year-old male who is sitting up in bed in no di stress HEENT: Head is atraumatic, normocephalic, pupils were equal round reactive to light and recommendation, extraocular muscle movement were intact, sclera nonicteric, conjunctivae were pale, mucous membranes of the mouth are somewhat dry. Neck: Supple, no JVP, normal carotid upstroke bilaterally, no lymphadenopathy. Chest: Decreased breath sounds at the bases, few rhonchi, no extremity wheezes, no chest wall tenderness, no intercostal retractions. Heart: First heart sound is normal, second heart sound is normal there is systolic ejection murmur 2/6 located in the left sternal border, there is AICD in the left upper precordium. Abdomen: Soft, nontender, nondistended, positive bowel sounds. there is no hepatosplenomegaly. Extremities: There is no edema no calf tenderness DP +2 bilaterally. Neurologic examination: Patient is awake alert and oriented X 3, cranial nerves II-12 appear grossly intact, muscle power were 5 out of 5 in upper extremities and 5 out of 5 in bilateral lower extremities, deep tendon reflexes normal bilaterally. ASSESSMENT AND PLAN: 1. Accelerated hypertension with hypertensive emergency. continue with Toprol- XL 50 mg at bedtime, continue with lisinopril 5 mg orally twice every day, monitor the patient blood pressure very closely discontinue IV fluid. 2. Status post a fall without evidence of acute trauma. 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 3. one episode of ventricular fibrillation status post ICD discharge. Continue amiodarone 400 mg orally twice every day, continue Toprol XL 50 mg orally once every day, monitor the patient very closely. 4. Hypertension and hypertensive cardiovascular disease. Continue patient on losartan 100 mg once every , continue patient on Toprol-XL 50 mg orally once every day. Monitor the patient blood pressure very closely. 5. Hyperlipidemia. Continue patient on atorvastatin 80 mg orally once every day. 6. CAD post-PCI with ischemic cardiomyopathy. Continue aspirin 81 mg once every day, metoprolol orally once every day, atorvastatin 80 mg orally once every day. 7. ALLERGIC rhinitis. Continue patient on loratadine 10 mg orally once every day. 8. GERD. Continue omeprazole 40 mg orally once every day as well as famotidine 40 mg at bedtime. 9. Constipation. Start the patient on lactulose 20 g orally twice every day, continue Senokot-s 2 tablet orally bedtime may use MiraLAX 17 g in 8 ounces water as needed. 10. Enlarged prostate. Continue tamsulosin 0.4 g orally once every day. 11. DVT prophylaxis. Continue patient on Lovenox 40 mg subcutaneously every 24 hours. 12. GI prophylaxis. Continue PPI. 13. Atrial fibrillation with rapid ventricular response currently in sinus rhythm. Patient is not a candidate for anticoagulation because of the risk of falling, continue patient on Toprol-XL 50 mg once every day, continue amiodarone 400 mg orally twice every day, monitor the patient very closely. Objective - Vital Signs Vital signs: Vital Signs Temp 98.1 F 01/03/22 07:48 Pulse 62 01/03/22 12:00 Resp 18 01/03/22 08:00 BP 111/66 01/03/22 12:00 Pulse Ox 92 L 01/03/22 12:00 FiO2 Intake & Output 01/02/22 01/03/22 01/03/22 18:59 06:59 18:59 Output Total 320 200 200 Balance -320 -200 -200 Output: Urine 320 200 200 - Labs CBC & Chem 7: 01/04/22 11:39 01/04/22 11:39
[2022-01-04] MEDS: METOPROLOL SUCCINATE (ER) 50 MG TAB.ER.24H PO SCH (20:27)
[2022-01-05] MEDS: PANTOPRAZOLE 40 MG TABLET PO SCH (06:37)
[2022-01-05 08:26] LABS: Basophils # (A) 0.1 k/uL (0-0.2); Basophils % (A) 1 %; Eosinophils # (A) 0.6 k/uL (0-0.7); Eosinophils % (A) 8 %; HCT 48.8 % (39.0-53.0); HGB 16.5 gm/dL (13.0-17.5); Lymphocytes # (A) 1.5 k/uL (1.0-4.8); Lymphocytes % (A) 20 %; MCH 33.7 pg (25.0-35.0); MCHC 33.9 g/dL (31.0-37.0); MCV 99.4 fL (80.0-100.0); Mean Platelet Volume 8.5; Monocytes # (A) 0.5 k/uL (0-1.0); Monocytes % (A) 7 %; Neutrophils # (A) 4.4 k/uL (1.3-7.7); Neutrophils % (A) 61 %; Platelet Count 175 k/uL (150-450); RBC 4.91 m/uL (4.30-5.90); RDW 12.6 % (11.5-15.5); WBC 7.2 k/uL (3.8-10.6)
[2022-01-05 08:41] LABS: Albumin 3.7 g/dL (3.5-5.0); Calcium 8.8 mg/dL (8.4-10.2); Potassium 4.6 mmol/L (3.5-5.1); Total Bilirubin 1.3 mg/dL (0.2-1.3); Total Protein 6.2 g/dL (6.3-8.2)
[2022-01-05] MEDS: LOSARTAN 50 MG TAB PO SCH (09:36)
[2022-01-05] MEDS: SPIRONOLACTONE 25 MG TAB PO SCH (09:36)
[2022-01-05] MEDS: ATORVASTATIN 80 MG TAB PO SCH (09:37)
[2022-01-05] MEDS: AMIODARONE 200 MG TAB PO SCH ×2 (09:37→20:16)
[2022-01-05] MEDS: ASPIRIN 81 MG PO SCH (09:37)
[2022-01-05] MEDS: LORATADINE 10 MG TAB PO SCH (09:37)
--- NOTE | 2022-01-05 13:09 | P.PN ---
Subjective This is a 86 year old male with a past medical history of CAD s/p PCI to mid LAD in 1993, mid RCA and mid PLB in 2001, mid RCA and proximal RCA 2013, ischemic cardiomyopathy s/p ICD, hypertension, dyslipidemia. Follows in the office with Dr. Kearns. We are consulted for Atrial fibrillation with RVR and shock from ICD. Patient initially was admitted for hypertensive urgency weakness and increased falling at home. Patient was found to be in A fib with RVR. Started on amiodarone. Has converted to sinus rhythm. Patient seen and examined at bedside, no acute distress, up in the bedside chair. Overall feeling well. Echocardiogram revealed EF 25%. Labs: Sodium 134, potassium 4.6, BUN 29, serum creatinine 1.03, TSH within normal limits GENERAL: Well-appearing, well-nourished and in no acute distress. NECK: Supple without JVD LUNGS: Breath sounds clear to auscultation bilaterally. Respiration equal and unlabored. No wheezes, rales or rhonchi. HEART: Regular rate and rhythm without murmurs, rubs or gallops. S1 and S2 heard. EXTREMITIES: Normal range of motion, no edema. No clubbing or cyanosis. Peripheral pulses intact. ASSESSMENT Hypertensive urgency New onset paroxysmal atrial fibrillation with RVR, converted to sinus rhythm Episode of V fib with ICD shock Coronary artery disease s/p PCI to mid LAD in 1993, mid RCA and mid PLB in 2001, mid RCA and proximal RCA 2013 Ischemic cardiomyopathy s/p ICD Hypertension Dyslipidemia PLAN Patient is not a candidate for anticoagulation due to multiple frequent falls. Patient's BP has improved Increase metoprolol succinate to 75mg nightly Continue amiodarone taper Continue aspirin and statin Continue losartan Continue aldactone Further recommendations based on clinical course On discharge follow up with Dr. Kearns Nurse Practitioner note has been reviewed, I agree with a documented findings and plan of care. Patient was seen and examined. Objective - Vital Signs Vital signs: Vital Signs Temp 98.6 F 01/05/22 00:31 Pulse 58 L 01/05/22 00:31 Resp 15 01/05/22 00:31 BP 131/69 01/05/22 00:31 Pulse Ox 95 01/05/22 08:29 FiO2 Intake & Output 01/04/22 01/05/22 01/05/22 18:59 06:59 18:59 Intake Total 120 120 Output Total 400 200 100 Balance -280 -200 20 Intake: Oral 120 120 Output: Urine 400 200 100 Other: Voiding Method Urinal - Labs CBC & Chem 7: 01/05/22 07:25 01/05/22 07:25 Labs: Abnormal Lab Results - Last 24 Hours (Table) 01/04/22 01/05/22 Range/Units 11:39 07:25 Sodium 134 L 134 L (137-145) mmol/L Carbon Dioxide 20 L (22-30) mmol/L BUN 26 H 29 H (9-20) mg/dL Glucose 111 H 101 H (74-99) mg/dL Total Protein 6.1 L 6.2 L (6.3-8.2) g/dL
[2022-01-05] MEDS: hydrALAZINE HCL 20 MG/ML 1 ML VIAL IVP PRN (20:19)
[2022-01-05] MEDS ORDERED: METOPROLOL SUCCINATE (ER) 25 MG TAB.ER.24H PO SCH (21:00)
[2022-01-06] MEDS: PANTOPRAZOLE 40 MG TABLET PO SCH (06:22)
[2022-01-06] MEDS: LORATADINE 10 MG TAB PO SCH (08:32)
[2022-01-06] MEDS: ASPIRIN 81 MG PO SCH (08:32)
[2022-01-06] MEDS: SPIRONOLACTONE 25 MG TAB PO SCH (08:32)
[2022-01-06] MEDS: ATORVASTATIN 80 MG TAB PO SCH (08:32)
[2022-01-06] MEDS: LOSARTAN 50 MG TAB PO SCH (08:33)
[2022-01-06] MEDS: AMIODARONE 200 MG TAB PO SCH (08:33)
--- NOTE | 2022-01-06 09:56 | P.PN ---
Subjective This is a 86 year old male with a past medical history of CAD s/p PCI to mid LAD in 1993, mid RCA and mid PLB in 2001, mid RCA and proximal RCA 2013, ischemic cardiomyopathy s/p ICD, hypertension, dyslipidemia. Follows in the office with Dr. Kearns. We are consulted for Atrial fibrillation with RVR and shock from ICD. Patient initially was admitted for hypertensive urgency weakness and increased falling at home. Patient was found to be in A fib with RVR. Started on amiodarone. Has converted to sinus rhythm. Patient seen and examined at bedside, no acute distress, denies any chest pain, shortness of breath or palpitations. Overall feeling well. Echocardiogram revealed EF 25%. GENERAL: Well-appearing, well-nourished and in no acute distress. NECK: Supple without JVD LUNGS: Breath sounds clear to auscultation bilaterally. Respiration equal and unlabored. No wheezes, rales or rhonchi. HEART: Regular rate and rhythm without murmurs, rubs or gallops. S1 and S2 heard. EXTREMITIES: Normal range of motion, no edema. No clubbing or cyanosis. Peripheral pulses intact. ASSESSMENT Hypertensive urgency New onset paroxysmal atrial fibrillation with RVR, converted to sinus rhythm Episode of V fib with ICD shock Coronary artery disease s/p PCI to mid LAD in 1993, mid RCA and mid PLB in 2001, mid RCA and proximal RCA 2013 Ischemic cardiomyopathy s/p ICD Hypertension Dyslipidemia PLAN Patient is not a candidate for anticoagulation due to multiple frequent falls. Patient's BP has improved, continues to be slightly elevated but improved Continue metoprolol succinate to 75mg nightly Continue amiodarone taper Continue aspirin and statin Continue losartan Continue aldactone Discontinue home lisinopril From a cardiology perspective, ok to discharge when cleared by primary and other consultants. On discharge follow up with Dr. Kearns in 1-2 weeks Nurse Practitioner note has been reviewed, I agree with a documented findings and plan of care. Patient was seen and examined. Objective - Vital Signs Vital signs: Vital Signs Temp 97.8 F 01/06/22 08:30 Pulse 51 L 01/06/22 08:30 Resp 15 01/06/22 08:30 BP 169/79 01/06/22 08:30 Pulse Ox 98 01/06/22 08:30 FiO2 Intake & Output 01/05/22 01/06/22 01/06/22 18:59 06:59 18:59 Intake Total 120 120 Output Total 350 500 325 Balance -230 500 205 Intake: Oral 120 120 Output: Urine 350 500 325 Other: Voiding Method Urinal Urinal Toilet - Labs CBC & Chem 7: 01/05/22 07:25 01/05/22 07:25
[2022-01-06 11:34] VITALS: BP 177/84; PULSE 57; RESP 15; TEMP 97.2
[2022-01-06] MEDS: hydrALAZINE HCL 20 MG/ML 1 ML VIAL IVP PRN (12:09)
[2022-01-06 12:55] VITALS: BMI 30.4
--- NOTE | 2022-01-18 13:04 | P.PN ---
Subjective Progress Note Date: 01/04/22 HISTORY OF PRESENT ILLNESS: This is an 85-year-old male with a previous medical history signifi cant for hypertension and hypertensive cardio vascular disease, hyperlipidemia, paroxysmal atrial fibrillation, coronary artery disease with ischemic cardiomyopathy, enlarged prostate, history of AICD, patient presented to the emergency department at [facility] yesterday with increased pain in the left side of his face after he was trying to ambulate using his walker and all of a sudden he fell and hit his left side of his head to the fridge, patient was in treatment as amount of pain and he was feeling some pain in the back and he was having some headache as well, he checks his blood pressure and his blood pressure was quite elevated, his daughter came and checked his blood pressure and it was quite high as well so he ended up coming to the ER at [facility] for evaluation his initial evaluation with a computed tomography scan of the head and cervical spine showed evidence of the brain atrophy with small vessel disease, and 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, pelvic x-ray did not show any evidence of acute fracture with left hip osteoarthritis, chest x-ray showed interstitial changes without acute disease, EKG showed normal/rhythm with left axis deviation without evidence of acute ischemic changes, patient was quite hypertensive in the emergency department with a systolic blood pressure of 205/114, he did receive labetalol in the e mergency department without any relief, patient was admitted has been for evaluation, he was started on hydralazine 10 mg IV push every 4 hours as needed increase his Toprol to 50 mg at bedtime along with increasing lisinopril to 5 mg orally twice every day, patient remained hypertensive, and th he was admitted to the hospital for further evaluation and treatment. 01/03: Patient developed to have yesterday an episode of atrial fibrillation with rapid response, his defibrillator was activated by he was in the bathroom trying to have a bowel movement, patient was transferred to stepdown unit, patient was seen in consultation by cardiology is defibrillator was interrogated and it did show one episode of ventricular fibrillation, he was placed on amiodarone 400 mg orally twice every day, his beta mitch was increased to 50 mg once every day, he has been maintained on baby aspirin 81 mg once every day, discontinue lisinopril and start the patient on losartan 100 mg orally once every day, we'll continue to monitor the patient very closely. 01/04: Patient is laying down in bed in no apparent distress, he denies any chest pain, shortness breath, he has no abdominal pain, nausea vomiting or diarrhea, he was seen in consultation by cardiology we will continue to monitor the patient very closely. REVIEW OF SYSTEMS: Constitutional: No documented fever, no chills, no night sweats. No weight change. Positive for weakness, fatigue no lethargy. No daytime sleepiness. HEENT: Positive for headache. Positive blurred vision or double vision, no loss of vision. Positive for loss of Hearing, no ringing in the ears, no dizziness. Positive for nasal crust or congestion. No epistaxis. No sore throat. Lungs: No shortness of breath, no cough, no sputum production. No wheezing. Reports dyspnea with activity. Cardiovascular: No chest pain, no lower extremity edema. No palpitations. No paroxysmal nocturnal dyspnea. No orthopnea. No lightheadedness or dizziness. No syncopal episodes. Abdominal: Reports abdominal pain. No nausea, vomiting. No diarrhea. positive for constipation. No bloody or tarry stools reports loss of appetite. Genitourinary: No dysuria, increased frequency, urgency. No urinary retention. Musculoskeletal: No myalgias. Positive for muscle weakness, no gait dysfunction, no frequent falls. No back pain. No neck pain. Integumentary: no skin rash Neurologic: No aphasia. No facial droop. No change in mentation. No head injury. No headache. No paralysis. No paresthesia. Psychiatric: No depression. No anxiety. No mood swings. Endocrine: No abnormal blood sugars. No weight change. PHYSICAL EXAMINATION: General: this is an 82-year-old male who is sitting up in bed in no distress HEENT: Head is atraumatic, normocephalic, pupils were equal round reactive to light and recommendation, extraocular muscle movement were intact, sclera nonicteric, conjunctivae were pale, mucous membranes of the mouth are somewhat dry. Neck: Supple, no JVP, normal carotid upstroke bilaterally, no lymphadenopathy. Chest: Decreased breath sounds at the bases, few rhonchi, no extremity wheezes, no chest wall tenderness, no intercostal retractions. Heart: First heart sound is normal, second heart sound is normal there is systolic ejection murmur 2/6 located in the left sternal border, there is AICD in the left upper precordium. Abdomen: Soft, nontender, nondistended, positive bowel sounds. there is no hepatosplenomegaly. Extremities: There is no edema no calf tenderness DP +2 bilaterally. Neurologic examination: Patient is awake alert and oriented X 3, cranial nerves II-12 appear grossly intact, muscle power were 5 out of 5 in upper extremities and 5 out of 5 in bilateral lower extremities, deep tendon reflexes normal bilat erally. ASSESSMENT AND PLAN: 1. Accelerated hypertension with hypertensive emergency. continue with Toprol- XL 50 mg at bedtime, continue losartan 100 mg orally once every day, monitor the patient blood pressure very closely. 2. Status post a fall without evidence of acute trauma. 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 3. one episode of ventricular fibrillation status post ICD discharge. Continue amiodarone 400 mg orally twice every day, continue Toprol XL 50 mg orally once every day, monitor the patient very closely. 4. Hypertension and hypertensive cardiovascular disease. Continue patient on losartan 100 mg once every , continue patient on Toprol-XL 50 mg orally once every day. Monitor the patient blood pressure very closely. 5. Hyperlipidemia. Continue patient on atorvastatin 80 mg orally once every day. 6. CAD post-PCI with ischemic cardiomyopathy. Continue aspirin 81 mg once every day, metoprolol orally once every day, atorvastatin 80 mg orally once every day. 7. ALLERGIC rhinitis. Continue patient on loratadine 10 mg orally once every day. 8. GERD. Continue omeprazole 40 mg orally once every day as well as famotidine 40 mg at bedtime. 9. Constipation. Start the patient on lactulose 20 g orally twice every day, continue Senokot-s 2 tablet orally bedtime may use MiraLAX 17 g in 8 ounces water as needed. 10. Enlarged prostate. Continue tamsulosin 0.4 g orally once every day. 11. DVT prophylaxis. Continue patient on Lovenox 40 mg subcutaneously every 24 hours. 12. GI prophylaxis. Continue PPI. 13. Atrial fibrillation with rapid ventricular response currently in sinus rhythm. Patient is not a candidate for anticoagulation because of the risk of falling, continue patient on Toprol-XL 50 mg once every day, continue amiodarone 400 mg orally twice every day, monitor the patient very closely. Objective - Vital Signs Vital signs: Vital Signs Temp 97.2 F L 01/04/22 08:00 Pulse 66 01/04/22 12:09 Resp 18 01/04/22 08:00 BP 130/67 01/04/22 12:09 Pulse Ox 94 L 01/04/22 12:09 FiO2 Intake & Output 01/03/22 01/04/22 01/04/22 18:59 06:59 18:59 Intake Total 150 150 Output Total 200 100 Balance -50 50 Intake: Intake, IV Titration 150 Amount Sodium Chloride 0.9% 1, 150 000 ml @ 75 mls/hr IV . [id number] [facility] Rx#:[id number] Oral 150 Output: Urine 200 100 - Labs CBC & Chem 7: 01/05/22 07:25 01/05/22 07:25 Labs: Abnormal Lab Results - Last 24 Hours (Table) 01/04/22 Range/Units 11:39 Sodium 134 L (137-145) mmol/L BUN 26 H (9-20) mg/dL Glucose 111 H (74-99) mg/dL Total Protein 6.1 L (6.3-8.2) g/dL
--- NOTE | 2022-01-18 13:06 | P.PN ---
Subjective Progress Note Date: 01/05/22 HISTORY OF PRESENT ILLNESS: This is an 85-year-old male with a previous medical history signifi cant for hypertension and hypertensive cardio vascular disease, hyperlipidemia, paroxysmal atrial fibrillation, coronary artery disease with ischemic cardiomyopathy, enlarged prostate, history of AICD, patient presented to the emergency department at [facility] yesterday with increased pain in the left side of his face after he was trying to ambulate using his walker and all of a sudden he fell and hit his left side of his head to the fridge, patient was in treatment as amount of pain and he was feeling some pain in the back and he was having some headache as well, he checks his blood pressure and his blood pressure was quite elevated, his daughter came and checked his blood pressure and it was quite high as well so he ended up coming to the ER at [facility] for evaluation his initial evaluation with a computed tomography scan of the head and cervical spine showed evidence of the brain atrophy with small vessel disease, and 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, pelvic x-ray did not show any evidence of acute fracture with left hip osteoarthritis, chest x-ray showed interstitial changes without acute disease, EKG showed normal/rhythm with left axis deviation without evidence of acute ischemic changes, patient was quite hypertensive in the emergency department with a systolic blood pressure of 205/114, he did receive labetalol in the e mergency department without any relief, patient was admitted has been for evaluation, he was started on hydralazine 10 mg IV push every 4 hours as needed increase his Toprol to 50 mg at bedtime along with increasing lisinopril to 5 mg orally twice every day, patient remained hypertensive, and th he was admitted to the hospital for further evaluation and treatment. 01/03: Patient developed to have yesterday an episode of atrial flutter ablation with rapid response, his defibrillator was activated by he was in the bathroom trying to have a bowel movement, patient was transferred to stepdown unit, patient was seen in consultation by cardiology is defibrillator was interrogated and it did show one episode of ventricular fibrillation, he was placed on amiodarone 400 mg orally twice every day, his beta mitch was increased to 50 mg once every day, he has been maintained on baby aspirin 81 mg once every day, discontinue lisinopril and start the patient on losartan 100 mg orally once ever y day, we'll continue to monitor the patient very closely. 01/04: Patient is laying down in bed in no apparent distress, he denies any chest pain, shortness breath, he has no abdominal pain, nausea vomiting or diarrhea, he was seen in consultation by cardiology we will continue to monitor the patient very closely. 01/05: Patient is feeling better today, his family was at the bedside, his grand daughter is there, he denies any chest pain, he has no shortness breath, he seems to be tolerating treatment very well, has no episode of abdominal pain, nausea vomiting or diarrhea he's and bleeding using a walker, patient will be probably discharged home tomorrow morning. REVIEW OF SYSTEMS: Constitutional: No documented fever, no chills, no night sweats. No weight change. Positive for weakness, fatigue no lethargy. No daytime sleepiness. HEENT: Positive for headache. Positive blurred vision or double vision, no loss of vision. Positive for loss of Hearing, no ringing in the ears, no dizziness. Positive for nasal crust or congestion. No epistaxis. No sore throat. Lungs: No shortness of breath, no cough, no sputum production. No wheezing. Reports dyspnea with activity. Cardiovascular: No chest pain, no lower extremity edema. No palpitations. No paroxysmal nocturnal dyspnea. No orthopnea. No lightheadedness or dizziness. No syncopal episodes. Abdominal: Reports abdominal pain. No nausea, vomiting. No diarrhea. positive for constipation. No bloody or tarry stools reports loss of appetite. Genitourinary: No dysuria, increased frequency, urgency. No urinary retention. Musculoskeletal: No myalgias. Positive for muscle weakness, no gait dysfunction, no frequent falls. No back pain. No neck pain. Integumentary: no skin rash Neurologic: No aphasia. No facial droop. No change in mentation. No head injury. No headache. No paralysis. No paresthesia. Psychiatric: No depression. No anxiety. No mood swings. Endocrine: No abnormal blood sugars. No weight change. PHYSICAL EXAMINATION: General: this is an 82-year-old male who is sitting up in bed in no distress HEENT: Head is atraumatic, normocephalic, pupils were equal round reactive to light and recommendation, extraocular muscle movement were intact, sclera nonicteric, conjunctivae were pale, mucous membranes of the mouth are somewhat dry. Neck: Supple, no JVP, normal carotid upstroke bilaterally, no lymphadenopathy. Chest: Decreased breath sounds at the bases, few rhonchi, no extremity wheezes, no chest wall tenderness, no intercostal retractions. Heart: First heart sound is normal, second heart sound is normal there is systolic ejection murmur 2/6 located in the left sternal border, there is AICD in the left upper precordium. Abdomen: Soft, nontender, nondistended, positive bowel sounds. there is no hepatosplenomegaly. Extremities: There is no edema no calf tenderness DP +2 bilaterally. Neurologic examination: Patient is awake alert and oriented X 3, cranial nerves II-12 appear grossly intact, muscle power were 5 out of 5 in upper extremities and 5 out of 5 in bilateral lower extremities, deep tendon reflexes normal bilaterally. ASSESSMENT AND PLAN: 1. Accelerated hypertension with hypertensive emergency. continue with Toprol- XL 50 mg at bedtime, continue with losartan 100 mg every day, monitor the patient blood pressure very closely. 2. Status post a fall without evidence of acute trauma. 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 3. one episode of ventricular fibrillation status post ICD discharge. Continue amiodarone 400 mg orally twice every day, continue Toprol XL 50 mg orally once every day, monitor the patient very closely. 4. Hypertension and hypertensive cardiovascular disease. Continue patient on losartan 100 mg once every , continue patient on Toprol-XL 50 mg orally once every day. Monitor the patient blood pressure very closely. 5. Hyperlipidemia. Continue patient on atorvastatin 80 mg orally once every day. 6. CAD post-PCI with ischemic cardiomyopathy. Continue aspirin 81 mg once every day, metoprolol orally once every day, atorvastatin 80 mg orally once every day. 7. ALLERGIC rhinitis. Continue patient on loratadine 10 mg orally once every day. 8. GERD. Continue omeprazole 40 mg orally once every day as well as famotidine 40 mg at bedtime. 9. Constipation. Start the patient on lactulose 20 g orally twice every day, continue Senokot-s 2 tablet orally bedtime may use MiraLAX 17 g in 8 ounces water as needed. 10. Enlarged prostate. Continue tamsulosin 0.4 g orally once every day. 11. DVT prophylaxis. Continue patient on Lovenox 40 mg subcutaneously every 24 hours. 12. GI prophylaxis. Continue PPI. 13. Atrial fibrillation with rapid ventricular response currently in sinus rhythm. Patient is not a candidate for anticoagulation because of the risk of falling, continue patient on Toprol-XL 50 mg once every day, continue amiodarone 400 mg orally twice every day, monitor the patient very closely. 14. Home tomorrow morning. Objective - Vital Signs Vital signs: Vital Signs Temp 97.0 F L 01/05/22 16:00 Pulse 57 L 01/05/22 16:00 Resp 16 01/05/22 16:00 BP 151/69 01/05/22 16:00 Pulse Ox 97 01/05/22 16:00 FiO2 Intake & Output 01/04/22 01/05/22 01/05/22 18:59 06:59 18:59 Intake Total 120 120 Output Total 400 200 100 Balance -280 -200 20 Intake: Oral 120 120 Output: Urine 400 200 100 Other: Voiding Method Urinal Urinal - Labs CBC & Chem 7: 01/05/22 07:25 01/05/22 07:25 Labs: Abnormal Lab Results - Last 24 Hours (Table) 01/05/22 Range/Units 07:25 Sodium 134 L (137-145) mmol/L Carbon Dioxide 20 L (22-30) mmol/L BUN 29 H (9-20) mg/dL Glucose 101 H (74-99) mg/dL Total Protein 6.2 L (6.3-8.2) g/dL
--- NOTE | 2022-01-18 13:07 | P.DS ---
Providers Date of admission: 01/05/22 08:17 Expected date of discharge: 01/06/22 Attending physician: Oskar Rowland Consults: 01/02/22 20:04 Consult Physician Stat Consulting Provider: [facility] Consult Reason/Comments: afib rvr Do you want consulting provider notified?: Yes Primary care physician: Oskar Rowland [facility] Course: HISTORY OF PRESENT ILLNESS: This is an 85-year-old male with a previous medical history significant for hypertension and hypertensive cardio vascular disease, hyperlipidemia, paroxysmal atrial fibrillation, coronary artery disease with ischemic cardiomyopathy, enlarged prostate, history of AICD, patient presented to the emergency department at [facility] yesterday with increased pain in the left side of his face after he was trying to ambulate using his walker and all of a sudden he fell and hit his left side of his head to the fridge, patient was in treatment as amount of pain and he was feeling some pain in the back and he was having some headache as well, he checks his blood pressure and his blood pressure was quite elevated, his daughter came and checked his blood pressure and it was quite high as well so he ended up coming to the ER at [facility] for evaluation his initial evaluation with a computed tomography scan of the head and cervical spine showed evidence of the brain atrophy with small vessel disease, and 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, pelvic x-ray did not show any evidence of acute fracture with left hip osteoarthritis, chest x-ray showed interstitial changes without acute disease, EKG showed normal/rhythm with left axis deviation without evidence of acute ischemic changes, patient was quite hypertensive in the emergency department with a systolic blood pressure of 205/114, he did receive labetalol in the emergency department without any relief, patient was admitted has been for evaluation, he was started on hydralazine 10 mg IV push every 4 hours as needed increase his Toprol to 50 mg at bedtime along with increasing lisinopril to 5 mg orally twice every day, patient remained hypertensive, and th he was admitted to the hospital for further evaluation and treatment. 01/03: Patient developed to have yesterday an episode of atrial flutter ablation with rapid response, his defibrillator was activated by he was in the bathroom trying to have a bowel movement, patient was transferred to stepdown unit, patient was seen in consultation by cardiology is defibrillator was interrogated and it did show one episode of ventricular fibrillation, he was placed on amiodarone 400 mg orally twice every day, his beta mitch was increased to 50 mg once every day, he has been maintained on baby aspirin 81 mg once every day, discontinue lisinopril and start the patient on losartan 100 mg orally once every day, we'll continue to monitor the patient very closely. 01/04: Patient is laying down in bed in no apparent distress, he denies any chest pain, shortness breath, he has no abdominal pain, nausea vomiting or diarrhea, he was seen in consultation by cardiology we will continue to monitor the patient very closely. 01/05: Patient is feeling better today, his family was at the bedside, his granddaughter is there, he denies any chest pain, he has no shortness breath, he seems to be tolerating treatment very well, has no episode of abdominal pain, nausea vomiting or diarrhea he's and bleeding using a walker, patient will be probably discharged home tomorrow morning. Discharge diagnoses: 1. Accelerated hypertension with hypertensive emergency. 2. Status post a fall without evidence of acute trauma. 3. one episode of ventricular fibrillation status post ICD discharge. 4. Hypertension and hypertensive cardiovascular disease. 5. Hyperlipidemia. 6. CAD post-PCI with ischemic cardiomyopathy. 7. ALLERGIC rhinitis. 8. GERD. 9. Constipation. 10. Enlarged prostate Patient Condition at Discharge: Fair Plan - Discharge Summary Discharge Rx Participant: No New Discharge Prescriptions: New Amiodarone [Cordarone] 400 mg PO BID #120 tab Losartan [Cozaar] 100 mg PO DAILY #90 tab Sennosides [Senokot] 17.2 mg PO HS PRN tab PRN Reason: Constipation Metoprolol Succinate (ER) [Toprol XL] 75 mg PO HS #90 tab Continue Spironolactone [Aldactone] 12.5 mg PO DAILY Aspirin [Adult Low Dose Aspirin EC] 81 mg PO DAILY Omeprazole 40 mg PO DAILY Atorvastatin [Lipitor] 80 mg PO DAILY Cetirizine HCl [Zyrtec] 10 mg PO DAILY Discontinued Nitroglycerin Sl Tabs [Nitrostat] 0.4 mg SL Q5M PRN PRN Reason: Chest Pain Metoprolol Tartrate [Lopressor] 25 mg PO HS lisinopriL [Zestril] 5 mg PO BID Discharge Medication List Spironolactone [Aldactone] 12.5 mg PO DAILY 12/03/16 [History] Aspirin [Adult Low Dose Aspirin EC] 81 mg PO DAILY 11/16/17 [History] Atorvastatin [Lipitor] 80 mg PO DAILY 03/03/21 [History] Omeprazole 40 mg PO DAILY 03/03/21 [History] Cetirizine HCl [Zyrtec] 10 mg PO DAILY 01/02/22 [History] Amiodarone [Cordarone] 400 mg PO BID #120 tab 01/05/22 [Rx] Losartan [Cozaar] 100 mg PO DAILY #90 tab 01/06/22 [Rx] Metoprolol Succinate (ER) [Toprol XL] 75 mg PO HS #90 tab 01/06/22 [Rx] Sennosides [Senokot] 17.2 mg PO HS PRN tab 01/06/22 [Rx] Follow up Appointment(s)/Referral(s): Benji Kearns MD [STAFF PHYSICIAN] - 01/16/22 9:15 am Oskar Rowland MD [Primary Care Provider] - 1 Week (Call to make appointment, phone number not working ) [facility] Vis[facility] Nurse, [NON-STAFF] - Patient Instructions/Handouts: Amiodarone (By mouth), A-fib (Atrial Fibrillation) (GEN), Fall Prevention for Older Adults (ED) Activity/Diet/Wound Care/Special Instructions: Cardiology Instructions: You were diagnosed with an irregular heart rhythm called atrial fibrillation You were started on a new medication called Amiodarone. The dose of this medication needs to be decreased gradually. Please follow these instructions: Take Amiodarone 400mg Twice a day from 01/03-01/09 Take Amiodarone 200mg Twice a day from 01/10-01/16 Take Amiodarone 200mg daily starting 01/17/[address] Kearns in the office. Discharge Disposition: HOME SELF-CARE
--- NOTE | 2022-01-19 08:00 | CDI ---
Documentation Clarification Form Date: 01/19/22 From: Tammi Jaquez Admit Date: 01/05/2022 08:17:00 AM Patient Name: Didier Carrillo Visit Number: [id number] Discharge Date: 01/06/2022 03:53:00 PM ATTENTION: The Clinical Documentation Specialists (CDI) and [facility] Coding Staff appreciate your assistance in clarifying documentation. Please respond to the clarification below the line at the bottom and electronically sign. The CDI & [facility] Coding staff will review the response and follow-up if needed. Please note: Queries are made part of the Legal Health Record. If you have any questions, please contact the author of this message via ITS. Dr. Oskar Rowland, Your patient has the documented diagnosis of unspecified CHF in ED Note, H&P & consult under past medical history. Additional information regarding the [type, acuity] of CHF is requested. History/Risk Factors: VF-AICD, Hypertensive heart disease with heart failure, PAF, aortic and tricuspid regurgitation, HLD, ischemic cardiomyopathy, CAD, old NM Clinical Indicators: Past medical history of heart failure, currently taking Aldactone. VS/Pulse OX: T 81, P 80, R 18, BP 208/105, O2 96 RA BNP: 717 Echocardiogram Results: Reduced global left ventricular systolic function. Left ventricular ejection fraction is estimated at 25 %. Chest X Ray: Interstitial pulmonary densities suggestive of pulmonary fibrosis. The inspiration is decreased compared to old exam. No heart failure seen. Treatment: Aldactone 25 mg PO daily, Cozaar 100 mg PO daily, In your professional opinion, can you please clarify the [acuity and type] of CHF if known? [ X ] Chronic Systolic Heart Failure (reduced EF) [ ] Chronic Diastolic Heart Failure (preserved EF) [ ] Chronic Heart Failure Systolic & Diastolic Heart Failure [ ] Other, please specify [ ] Unable to determine MTDD
== END 2022-01-06 15:53 | disposition home health service (06) | DRG 304 ==
LOC: EC 21:45 → 4SSUR 23:47 → 5NMEDONC 01-02 00:05 → 6NMEDSUR 01-02 12:38 → 3SCARD 01-02 19:59 → OBSVTOIN 01-05 08:17
PROVIDERS: ADMIT Internal Medicine; ATTEND Internal Medicine
PROC: 4B02XTZ Measurement of Cardiac Defibrillator, External Approach (ICD-10-PCS; principal; 2022-01-03)
DX: I16.0 Hypertensive urgency (principal); I49.01 Ventricular fibrillation; I71.00 Dissection of unspecified site of aorta; I67.89 Other cerebrovascular disease; I48.92 Unspecified atrial flutter; I50.22 Chronic systolic (congestive) heart failure; E86.0 Dehydration; I11.0 Hypertensive heart disease with heart failure; I48.0 Paroxysmal atrial fibrillation; I08.2 Rheumatic disorders of both aortic and tricuspid valves; E78.5 Hyperlipidemia, unspecified; I25.5 Ischemic cardiomyopathy; I25.10 Atherosclerotic heart disease of native coronary artery without angina pectoris; I49.3 Ventricular premature depolarization; K21.9 Gastro-esophageal reflux disease without esophagitis; I25.2 Old myocardial infarction; H35.30 Unspecified macular degeneration; N40.1 Benign prostatic hyperplasia with lower urinary tract symptoms; H91.90 Unspecified hearing loss, unspecified ear; R26.9 Unspecified abnormalities of gait and mobility; E05.90 Thyrotoxicosis, unspecified without thyrotoxic crisis or storm; M16.12 Unilateral primary osteoarthritis, left hip; R51.9 Headache, unspecified; M54.9 Dorsalgia, unspecified; J30.9 Allergic rhinitis, unspecified; K59.00 Constipation, unspecified; R29.6 Repeated falls; Z91.81 History of falling; Z79.82 Long term (current) use of aspirin; Z79.899 Other long term (current) drug therapy; Z95.5 Presence of coronary angioplasty implant and graft; Z96.653 Presence of artificial knee joint, bilateral; Z95.810 Presence of automatic (implantable) cardiac defibrillator; Z88.8 Allergy status to other drugs, medicaments and biological substances; Z91.040 Latex allergy status; W01.198A Fall on same level from slipping, tripping and stumbling with subsequent striking against other object, initial encounter; Y92.030 Kitchen in apartment as the place of occurrence of the external cause
CPT/HCPCS: 36415; 70450; 71045; 72125; 72170; 80053; 81003; 83735; 83880; 84100; 84132; 84443; 84484; 85025; 85610; 85730; 93005; 93306; 94760; 96361; 96374; 99285

== ENCOUNTER → 2022-05-11 | Outpatient (CLI) | payer MEDICARE ==
[2022-05-11 10:27] VITALS: BP 156/83; PULSE 50; RESP 18; TEMP 97.5
--- NOTE | 2022-05-11 14:54 | P.PAINPG ---
PQRS Measure Charge Sheet Comment: HISTORY OF PRESENT ILLNESS: 86 yr old male w nephew at side as a referral from [facility] presents today w severe and chronic LBP secondary to DDD, spondylosis and facet arthropathy without myelopathy for evaluation. Pt states pain level is at 7/10 in intensity, constant, localized in the center of the lumbar spine, achy in character w shooting pain towards the BL hips and knees. Pain is provoked by bending, lifting, standing from a sitting position. Pain is alleviated by medications (Tramadol, Tyl), topical, heat, PT x 6 wks in Dec 2021, use of walker for ambulatory assistance, repositioning and rest. PMH:CAD, Cardiomyopathy, CHF, Eye Disorder, GERD, Hyperlipidemia, HTN, AR (1993, 2013), OA, B, Hypothyroidism PSH: Adenoidectomy, AICD (2013 [employer]), Appendectomy, Cholecystectomy, Heart Catheterization, Heart Catheterization With Stent x3, BL Knee Arthroplasty, Orthopedic Surgery, Pacemaker, Tonsillectomy, BL Cataract Resection, BL CTR, Partial Thyroidectomy SH: Negative x3 FH: Son- No Reported History. Fa- CAD, CVA, CA. Mo- at age 88 of unknown causes. Daughter- adopted. Bro- Pancreatic CA, Bone CA. All: See list Meds: See list REVIEW OF ORGAN SYSTEMS: CONSTITUTIONAL: No fevers or chills. No recent weight loss. NEUROLOGICAL: + numbness and tingling along the distal extremities. No seizure disorders or headaches. MUSCULOSKELETAL: + pain PSYCHIATRIC: Denies current depression or suicidal thoughts. Physical Examinations : Constitutional : Cooperative , not in acute distress . Neurologic : Cranial nerve II to XII intact. No focal neurological deficits. Psychiatric : alert & oriented x 3. Matching mood & appropriate affect. Judgment & insight intact. Musculoskeletal : Cervical Spine Motor strength in the deltoid and biceps: Normal right side. Normal Left side Motor strength biceps and the wrist extensors: Normal right side . Normal left side Motor strength in the triceps muscle: Normal right side. Normal left side Deep tendon reflexes: Normal at the biceps. Normal at Brachioradialis. Normal at triceps Vertebral body tenderness to deep palpation over Cervical facet loading test: positive bilaterally Spurling test: positive bilaterally Neck distraction test: positive bilater ally Teja sign: positive bilaterally Lumbar spine Motor strength lower extremities ,thigh and legs 5/5 Right side , 5/5 Left side Deep tendon reflexes : Normal Knee Jerk. Normal Ankle Jerk Vertebral body tenderness over L2, L3, L4 Lumbar facet Loading Test: positive Right / positive Left Range of motion of the lumbar spine Flexion 30 degrees, extension 10 degrees Straight Leg Raise test: Left/ Right positive at degree Pranav test: positive right / positive left. Severe tenderness over the Sacroiliac joint on the Right / Left sides Gaenslen test: positive bilaterally Seated flexion test: positive bilaterally. Sacral spine : Severe tenderness over the Sacroiliac joint: right side / left side Range of motion: Flexion of the lumbar spine <60 degrees Range of motion: Extension of the lumbar spine <20 degrees Gaenslen's Test positive Luis E's Test positive Pranav test: positive right side / left side Thigh Thrust Test Sacral Thrust Test Imaging: X-ray of the lumbar spine from 04/24/22 reviewed Assessment/ Plan : Lumbar DDD Recommendation of CT scan of the lumbar spine re: M51.36 May follow up at our clinic within 2-4 wks. All questions answered. I have spent greater than 30 minutes on patient care today. Dr Biggs was available by phone for the evaluation of this patient. The time was used to review the medical records including relevant urine studies and Prescription history (MAPs), review of the available imaging, evaluation and examination of the patient, coordination of care with the medical staff and if applicable referring physicians, as well as creation of the medical record PQRS Narrative: Smoking Status Former smoker Home Medications: Ambulatory Orders Spironolactone [Aldactone] 12.5 mg PO DAILY 12/03/16 Aspirin [Adult Low Dose Aspirin EC] 81 mg PO DAILY 11/16/17 Atorvastatin [Lipitor] 80 mg PO DAILY 03/03/21 Omeprazole 40 mg PO DAILY 03/03/21 Cetirizine HCl [Zyrtec] 10 mg PO DAILY 01/02/22 Amiodarone [Cordarone] 400 mg PO BID #120 tab 01/05/22 Losartan [Cozaar] 100 mg PO DAILY #90 tab 01/06/22 Metoprolol Succinate (ER) [Toprol XL] 75 mg PO HS #90 tab 01/06/22 Sennosides [Senokot] 17.2 mg PO HS PRN tab 01/06/22 Controlled Substance Measures - Controlled Substance Measures Is patient prescribed a controlled substance at discharge?: No
== END ==
LOC: PNWHC3 09:29
PROVIDERS: ATTEND Specialist
DX: M51.36 Other intervertebral disc degeneration, lumbar region (principal); I25.10 Atherosclerotic heart disease of native coronary artery without angina pectoris; I50.9 Heart failure, unspecified; K21.9 Gastro-esophageal reflux disease without esophagitis; E78.5 Hyperlipidemia, unspecified; I11.9 Hypertensive heart disease without heart failure; I25.2 Old myocardial infarction; M19.90 Unspecified osteoarthritis, unspecified site; E03.9 Hypothyroidism, unspecified; Z79.82 Long term (current) use of aspirin; Z87.891 Personal history of nicotine dependence; M43.07 Spondylolysis, lumbosacral region; G89.29 Other chronic pain; Z91.040 Latex allergy status; Z88.6 Allergy status to analgesic agent; Z88.8 Allergy status to other drugs, medicaments and biological substances
CPT/HCPCS: 99211

== ENCOUNTER → 2022-05-26 | Outpatient (CLI) | payer MEDICARE ==
--- NOTE | 2022-05-26 15:41 | CT ---
EXAMINATION TYPE: CT lumbar spine wo con DATE OF EXAM: 05/26/2022 COMPARISON: None HISTORY: low back pain x few months. no injury. CT DLP: 1333.[address] of the lumbar spine was performed. Bone and soft tissue window settings are submitted as well as coronal and sagittal reconstructions. There appears to be a transitional vertebral segment with what appears to be partial lumbarization of S1. Prior to any scheduled intervention radiographi c correlation is advised. L1-L2: There is severe degenerative disc space narrowing and vacuum disc. Ventral spondylosis. No sig nificant disc bulge or central stenosis. Facet joint arthropathy with moderate bilateral foraminal en croachment. L2-L3: There is severe degenerative disc space narrowing and vacuum disc. Ventral spondylosis. No sig nificant disc bulge or central stenosis. Facet joint arthropathy with moderate bilateral foraminal en croachment. L3-L4: Disc desiccation with ventral and dorsal spondylosis and vacuum disks. Posterior disc bulges p artially encapsulated and spur effaces the ventral thecal sac. Hypertrophy of the ligamentum flavum a nd facet joint arthropathy contribute to mild central stenosis. L4-L5: Severe disc desiccation of vacuum discs. Moderate posterior disc bulge. Hypertrophy of ligamen adebayo flavum and facet joint arthropathy resulting in moderate central stenosis. Bilateral neural fora rojas encroachment. L5-S1: Grade 1 anterolisthesis L5 on S1 measuring 3 mm. Posterior disc bulge with effacement of ventr al thecal sac. Moderate central stenosis appreciated. Bilateral foraminal encroachment. No paraspinal masses are identified. Lumbar segments are free if fracture. IMPRESSION: 1. Severe multilevel degenerative disc disease with multilevel central stenosis and foraminal encroac hment. 2. Transitional S1 vertebral segment.
== END | disposition home or self-care (01) ==
LOC: RADCTMAIN 13:37
PROVIDERS: ATTEND Specialist
DX: M51.36 Other intervertebral disc degeneration, lumbar region (principal); M43.17 Spondylolisthesis, lumbosacral region; M48.061 Spinal stenosis, lumbar region without neurogenic claudication
CPT/HCPCS: 72131

== ENCOUNTER → 2022-06-18 | Outpatient (CLI) | payer MEDICARE ==
--- NOTE | 2022-06-18 14:58 | P.PAINPG ---
PQRS Measure Charge Sheet History and Exam Findings: All other causes of pain ruled out Comment: A 87 yr old frail male w nephew at side with a history of severe and chronic LBP x 7 mo secondary to lumbar DDD and spondylosis with facet arthropathy without myelopathy presents today for CT lumbar spine results. Pain level is provoked at 8/10 in intensity, constant, localized in the lumbar spine, dull in character w shooting towards the BLEs. Pain is provoked by sitting for periods of 15 min or more, walking for periods of 5 min, bending, lifting. Pain is alleviated with heat, ice, medications, topical PT years ago, chiropractor states treatment is contraindicated due to surgeries, repositioning and rest. Patient is currently on Tyl, Ibu Patient denies any side effects of the medication(s), denies excessive drowsiness or sleepiness, denies suicidal ideation and reports that the current pain medication is helping to control the pain and improve activities of daily living. Patient denies any motor or sensory deficits. Patient denies any fever or night sweats, denies any change in the bowel movements or urination. Physical Examination: -Constitutional: Cooperative. Not in acute distress . - Neurologic: Cranial nerve II to XII intact. No focal neurological deficits. - Psychatric: Alert & oriented x 3. Matching mood & appropriate affect. Judgment and insight intact. - Musculoskeletal: Cervical spine: Muscle bulk/ tone/ strength in the bilateral upper extremities normal Vertebral body tenderness to palpation over Spurling test positive Distraction test positive Facet loading test positive TTP Thoracic spine Muscle bulk / tone/ strength in the bilateral paraspinal muscles normal Vertebral body tender to palpation over Facet loading test positive TTP Lumbar spine: Motor bulk/ tone/ strength lower extremities , thigh and legs : 5/5 Deep tendon reflexes : Normal Knee Jerk. Normal Ankle Jerk . Vertebral body tenderness to palpation over L2, L3, L4 Lumbar Facet Loading Test positive Straight Leg Raise: positive at 30 degrees right side/ left side Gaenslen's Test positive Sacral spine : Severe tenderness over the Sacroiliac joint: right side / left side Range of motion: Flexion of the lumbar spine <60 degrees Range of motion: Extension of the lumbar spine <20 degrees Gaenslen's Test positive right side / left side Pranav test: positive right side / left side Thigh Thrust Test positive right side / left side Sacral Thrust Test positive right side / left side Imaging: CT noncontrast of the lumbar spine from 05/26/22 reviewed Assessment and plan: Chronic LBP secondary to lumbar DDD, spondylosis with facet arthropathy without myelopathy Recommendation of medication management. Chronic and current use of high-risk medication (Opioids). The patient was counseled about risk of opioid use, psychological risk associated with opioids and was orally counseled to not overuse , divert or sell medications. Pt is to store medication in a safe location. The patient is counseled against driving while using narcotic medicatio ns and also not to use alcohol or any illicit recreational drugs. Patient verbalized understanding that the lack of compliance will result in failure to renew narcotic prescription(s) as well as possible discharge from the clinic Diagnoses, prognosis and treatment options including but not limited to physical therapy, surgical interventions, interventional therapies and medication management including narcotics and adjuvant medication were discussed. All patient questions answered MAPS reviewed and it was appropriate. Prescription for Tyl #3 #90 w 1 RF. Narcotic/ opiate agreement signed today 06/18/22. I have spent less than 30 minutes on patient care today. Dr Biggs was available by phone for the evaluation of this patient. The time was used to revi ew the medical records including relevant urine studies and Prescription history (MAPs), review of the available imaging, evaluation and examination of the patient, coordination of care with the medical staff and if applicable referring physicians, as well as creation of the medical record PQRS Narrative: Smoking Status Former smoker Hx Alcohol Use (MH) No Home Medications: Ambulatory Orders Spironolactone [Aldactone] 12.5 mg PO DAILY 12/03/16 Aspirin [Adult Low Dose Aspirin EC] 81 mg PO DAILY 11/16/17 Atorvastatin [Lipitor] 80 mg PO DAILY 03/03/21 Omeprazole 40 mg PO DAILY 03/03/21 Cetirizine HCl [Zyrtec] 10 mg PO DAILY 01/02/22 Amiodarone [Cordarone] 400 mg PO BID #120 tab 01/05/22 Losartan [Cozaar] 100 mg PO DAILY #90 tab 01/06/22 Metoprolol Succinate (ER) [Toprol XL] 75 mg PO HS #90 tab 01/06/22 Sennosides [Senokot] 17.2 mg PO HS PRN tab 01/06/22 Acetaminophen-Codeine 300-30mg [Tylenol w/codeine #3] 1 tab PO Q8H PRN 30 Days #90 tablet 06/18/22 Controlled Substance Measures - Controlled Substance Measures Is patient prescribed a controlled substance at discharge?: Yes When asked, does pt state using other controlled substances?: No If prescribed controlled substance>3 days was MAPS reviewed?: Yes If Rx opioid, was Start Talking consent form obtained?: Yes Was information provided regarding opioid addiction?: Yes
[2022-06-18 15:05] VITALS: BP 157/81; PULSE 52; RESP 18; TEMP 98
== END ==
LOC: PNWHC3 10:06
PROVIDERS: ATTEND Specialist
DX: M51.36 Other intervertebral disc degeneration, lumbar region (principal); G89.29 Other chronic pain; M47.816 Spondylosis without myelopathy or radiculopathy, lumbar region; Z79.891 Long term (current) use of opiate analgesic; Z79.82 Long term (current) use of aspirin; Z79.899 Other long term (current) drug therapy; Z91.040 Latex allergy status; Z88.8 Allergy status to other drugs, medicaments and biological substances; Z87.891 Personal history of nicotine dependence
CPT/HCPCS: 99211

== ENCOUNTER 2022-08-04 21:58 | Emergency (ER) | payer MEDICARE ==
[2022-08-04] MEDS ORDERED: LIDOCAINE/EPINEPHR/TETRACAINE 5 ML BOTTLE TOPICAL ONE (22:14)
[2022-08-04 22:15] VITALS: BP 198/100; PULSE 79; RESP 18; TEMP 98.7
--- NOTE | 2022-08-04 22:45 | ED ---
Fall HPI - General Chief Complaint: Fall Stated Complaint: Fall, Head lac Time Seen by Provider: 08/04/22 22:15 Source: patient, EMS Mode of arrival: EMS - History of Present Illness Initial Comments: 87-year-old male who resides at [facility] who presents to emergency department after a fall. States that he has chronic left hip and knee pain. His hip was bothering him so much this evening that he lost his balance and fell. He hit his head against a door and sustained a laceration. He did not lose consciousness. He is not on blood thinners. Denies a headache or visual changes. Does admit to tenderness to the site. Bleeding controlled. Denies any neck pain. Denies any other injuries from the fall. States his hip and knee pain is chronic. No other alleviating, precipitating or modifying factors - Related Data Home Medications Medication Instructions Recorded Confirmed Spironolactone [Aldactone] 12.5 mg PO DAILY 12/03/16 05/11/22 Aspirin [Adult Low Dose Aspirin EC] 81 mg PO DAILY 11/16/17 05/11/22 Atorvastatin [Lipitor] 80 mg PO DAILY 03/03/21 05/11/22 Omeprazole 40 mg PO DAILY 03/03/21 05/11/22 Cetirizine HCl [Zyrtec] 10 mg PO DAILY 01/02/22 05/11/22 Previous Rx's Medication Instructions Recorded Amiodarone [Cordarone] 400 mg PO BID #120 tab 01/05/22 Losartan [Cozaar] 100 mg PO DAILY #90 tab 01/06/22 Metoprolol Succinate (ER) [Toprol 75 mg PO HS #90 tab 01/06/22 XL] Sennosides [Senokot] 17.2 mg PO HS PRN tab 01/06/22 Acetaminophen-Codeine 300-30mg 1 tab PO Q8H PRN 30 Days #90 tablet 06/18/22 [Tylenol w/codeine #3] Allergies Allergy/AdvReac Type Severity Reaction Status Date / Time amlodipine besylate Allergy Rash/Hives Verified 05/11/22 10:00 [From Norvasc] isosorbide [From Imdur] Allergy Unknown Verified 05/11/22 10:00 Latex, Natural Rubber Allergy Rash/Hives Verified 05/11/22 10:00 Review of Systems ROS Statement: Those systems with pertinent positive or pertinent negative responses have been documented in the HPI. ROS Other: All systems not noted in ROS Statement are negative. Past Medical History Past Medical History: Coronary Artery Disease (CAD), Heart Failure, Eye Disorder, GERD/Reflux, GI Bleed, Hyperlipidemia, Hypertension, Myocardial Infarction (NE), Osteoarthritis (OA), Prostate Disorder, Thyroid Disorder Additional Past Medical History / Comment(s): cardiomyopathy, DENGENERATIVE ARTHRITIS, MACULAR DEGENERATION AND CATARACTS,GI BLEED 2011, fall 11-24-16/facial inj/bruing/broken front teeth,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 Last Myocardial Infarction Date:: History of Any Multi-Drug Resistant Organisms: None Reported Past Surgical History: Adenoidectomy, AICD, Appendectomy, Cholecystectomy, Heart Catheterization, Heart Catheterization With Stent, Joint Replacement, Orthopedic Surgery, Pacemaker, Tonsillectomy Additional Past Surgical History / Comment(s): AICD, Defrillation Testing 04/02/14, TOTAL LT/RT KNEE ARTHROPLASTY, bilateral CATARACTS, bilateral carpal tunnel releases, PARTIAL THYROIDECTOMY due to nodules, trigger fingers,heart stents x3 Past Anesthesia/Blood Transfusion Reactions: No Reported Reaction Additional Past Anesthesia/Blood Transfusion Reaction / Comment(s): wakes up during surgery,no hx blood transfusion Date of Last Stent Placement:: Type of Cardiac Device: AICD Device Placement Date:: 12-04-13 [employer] Past Psychological History: No Psychological Hx Reported Additional Psychological History / Comment(s): Pt has a grand daughter who they adopted resides with him along with her boyfriend and daughter. He uses a walker at home. He no longer drives, grand daughter takes him places. Smoking Status: Never smoker Past Alcohol Use History: None Reported Additional Past Alcohol Use History / Comment(s): started smoking 1953, quit 1973 smoked 1 ppd. Past Drug Use History: None Reported - Past Family History Son(s) Family Medical History: No Reported History Father Family Medical History: Cancer, Coronary Artery Disease (CAD), CVA/TIA, Diabetes Mellitus Additional Family Medical History / Comment(s): CAROTID ARTERY BLOCKAGE.SX IN 1988 Mother Family Medical History: Unable to Obtain Additional Family Medical History / Comment(s): AT AGE 89- UNK HX Daughter(s) Family Medical History: Cancer (Patient has 2 adopted daughters and he has been under a lot of stress with his adopted daughter whom her left taking her cars with him.) BROTHER Family Medical History: Cancer Additional Family Medical History / Comment(s): BONE, PANCREATIC General Exam Limitations: no limitations General appearance: alert, in no apparent distress Head exam: Present: normocephalic, other (occipital scalp laceration - 5 x 1 x 1 cm) Eye exam: Present: normal appearance, PERRL, EOMI. Absent: scleral icterus, conjunctival injection, periorbital swelling ENT exam: Present: normal exam, mucous membranes moist Neck exam: Present: normal inspection. Absent: tenderness, meningismus, lymphadenopathy Respiratory exam: Present: normal lung sounds bilaterally. Absent: respiratory distress, wheezes, rales, rhonchi, stridor Cardiovascular Exam: Present: regular rate, normal rhythm, normal heart sounds. Absent: systolic murmur, diastolic murmur, rubs, gallop, clicks GI/Abdominal exam: Present: soft, normal bowel sounds. Absent: distended, tenderness, guarding, rebound, rigid Extremities exam: Present: normal inspection, full ROM, normal capillary refill. Absent: tenderness, pedal edema, joint swelling, calf tenderness Back exam: Present: normal inspection Neurological exam: Present: alert, oriented X3, CN II-XII intact Psychiatric exam: Present: normal affect, normal mood Skin exam: Present: warm, dry, intact, normal color. Absent: rash Course Vital Signs 08/04/22 22:11 Temperature 98.7 F Pulse Rate 79 Respiratory 18 Rate Blood Pressure 198/100 O2 Sat by Pulse 95 Oximetry Procedures - Laceration Laceration #1 Consent Obtained: verbal consent Indication: laceration Site: scalp Size (cm): 5 Description: linear Depth: simple, single layer Anesthesia Technique: local infiltration Amount (mls): 2 Pre-repair: wound explored, irrigated extensively Number of Sutures: 4 (herbie) Patient Tolerated Procedure: well, no complications Additional Comments: LET used Medical Decision Making - Medical Decision Making Was pt. sent in by a medical professional or institution (, PA, REGIONAL WILDLIFE AGENT, urgent care, hospital, or long-term...) When possible be specific @ -[facility] Did you speak to anyone other than the patient for history (EMS, parent, family, police, friend...)? What history was obtained from this source @ -EMS Did you review nursing and triage notes (agree or disagree)? Why? @ -I reviewed and agree with nursing and triage notes Were old charts reviewed (outside hosp., previous admission, EMS record, old EKG, old radiological studies, urgent care reports/EKG's, long-term records)? Report findings @ -No old charts were reviewed Differential Diagnosis (chest pain, altered mental status, abdominal pain women, abdominal pain men, vaginal bleeding, weakness, fever, dyspnea, syncope, headache, dizziness, GI bleed, back pain, seizure, CVA, palpatations, mental health, musculoskeletal)? @ -syncope, fall, bht, concussion, tm rupture EKG interpreted by me (3pts min.). @ -As above X-rays interpreted by me (1pt min.). @ -None done CT interpreted by me (1pt min.). @ - yes, no acute process U/S interpreted by me (1pt. min.). @ -None done What testing was considered but not performed or refused? (CT, X-rays, U/S, labs)? Why? @ -None What meds were considered but not given or refused? Why? @ -None Did you discuss the management of the patient with other professionals (professionals i.e. , PA, REGIONAL WILDLIFE AGENT, lab, RT, psych nurse, social media marketing manager, featheredger and reducer machine, teacher, booking police officer, caseworker)? Give summary @ -No Was smoking cessation discussed for >3mins.? @ -No Was critical care preformed (if so, how long)? @ -No Were there social determinants of health that impacted care today? How? (Homelessness, low income, unemployed, alcoholism, drug addiction, transportation, low edu. Level, literacy, decrease access to med. care, prison, rehab)? @ -No Was there de-escalation of care discussed even if they declined (Discuss DNR or withdrawal of care, Hospice)? DNR status @ -No What co-morbidities impacted this encounter? (DM, HTN, Smoking, COPD, CAD, Cancer, CVA, ARF, Chemo, Hep., AIDS, mental health diagnosis, sleep apnea, mo rbid obesity)? @ -None Was patient admitted / discharged? Hospital course, mention meds given and route, prescriptions, significant lab abnormalities, going to OR and other pertinent info. @ -Upon arrival patient was placed into room 1. Thorough history and physical exam is performed. Patient is sent for CT of his head and cervical spine. LET is placed to the site. Laceration is repaired with 4 herbie. Patient will be discharged home in stable condition. Instructed to follow up with his PCP in 2- 4 days. Return for any new or worsening symptoms Undiagnosed new problem with uncertain prognosis? @ -[yes Drug Therapy requiring intensive monitoring for toxicity (Heparin, Nitro, Insulin, Cardizem)? @ -No Were any procedures done? @ -No Diagnosis/symptom? @ -acute fall, scalp laceration Acute, or Chronic, or Acute on Chronic? @ -acute Uncomplicated (without systemic symptoms) or Complicated (systemic symptoms)? @ -complicated Side effects of treatment? @ -No Exacerbation, Progression, or Severe Exacerbation? @ -No Poses a threat to life or bodily function? How? (Chest pain, USA, NE, pneumonia, PE, COPD, DKA, ARF, appy, cholecystitis, CVA, Diverticulitis, Homicidal, Suicidal, threat to staff... and all critical care pts) @ -no Disposition Clinical Impression: Fall, Laceration of scalp Disposition: HOME SELF-CARE Condition: Stable Is patient prescribed a controlled substance at d/c from ED?: No Referrals: Oskar Rowland MD [Primary Care Provider] - 1-2 days
--- NOTE | 2022-08-05 05:29 | CT ---
EXAM: CT Head Without Intravenous Contrast CLINICAL HISTORY: Fall, trauma. All TECHNIQUE: Axial computed tomography images of the head/brain without intravenous contrast. CTDI is 45.2 mGy and DLP is 773.25 mGy-cm. This CT exam was performed using one or more of the following dose reduction techniques: automated exposure control, adjustment of the mA and/or kV according to patient size, and/or use of iterative reconstruction technique. COMPARISON: No relevant prior studies available. FINDINGS: Brain: Generalized cerebral volume loss and chronic, small vessel ischemic changes in the white matter. No acute edema, hemorrhage or abnormal mass-effect. Ventricles: Unremarkable. No ventriculomegaly. Bones/joints: Unremarkable. No acute fracture. Soft tissues: Unremarkable. Sinuses: Unremarkable as visualized. No acute sinusitis. Mastoid air cells: Unremarkable as visualized. No mastoid effusion. IMPRESSION: No acute findings in the head/brain. EXAM: CT Cervical Spine Without Intravenous Contrast CLINICAL HISTORY: Fall, trauma. All TECHNIQUE: Axial computed tomography images of the cervical spine without intravenous contrast. CTDI is 13.4 mGy and DLP is 773.25 mGy-cm. This CT exam was performed using one or more of the following dose reduction techniques: automated exposure control, adjustment of the mA and/or kV according to patient size, and/or use of iterative reconstruction technique. COMPARISON: No relevant prior studies available. FINDINGS: Vertebrae: Advanced degenerative arthropathy of the facet joints. 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 There is no significant displacement. Discs/spinal canal/neural foramina: Advanced multilevel degenerative disc disease. No spinal canal stenosis. Soft tissues: Unremarkable. IMPRESSION: No acute findings in the cervical spine.
== END 2022-08-05 01:30 | disposition home or self-care (01) ==
LOC: EC 21:58
DX: S01.01XA Laceration without foreign body of scalp, initial encounter (principal); I25.10 Atherosclerotic heart disease of native coronary artery without angina pectoris; K21.9 Gastro-esophageal reflux disease without esophagitis; I25.2 Old myocardial infarction; I11.0 Hypertensive heart disease with heart failure; I50.9 Heart failure, unspecified; E78.5 Hyperlipidemia, unspecified; M19.90 Unspecified osteoarthritis, unspecified site; E07.9 Disorder of thyroid, unspecified; Z91.040 Latex allergy status; Z88.8 Allergy status to other drugs, medicaments and biological substances; Z79.82 Long term (current) use of aspirin; Z79.899 Other long term (current) drug therapy; W01.198A Fall on same level from slipping, tripping and stumbling with subsequent striking against other object, initial encounter
CPT/HCPCS: 12002; 70450; 72125; 99284

== ENCOUNTER → 2022-09-28 | Outpatient (CLI) | payer MEDICARE ==
--- NOTE | 2022-09-28 10:40 | P.PN ---
Subjective Progress Note Date: 09/28/22 A 87 yr old frail male w nephew at side with a history of severe and chronic LBP x 7 mo secondary to lumbar DDD and spondylosis with facet arthropathy without myelopathy presents . Pain level is provoked at 8/10 in intensity, constant, localized in the lumbar spine, dull in character w shooting towards the BLEs. Pain is provoked by sitting for periods of 15 min or more, walking for periods of 5 min, bending, lifting. Pain is alleviated with heat, ice, medications, topical PT years ago, chiropractor states treatment is contraindicated due to surgeries, repositioning and rest. Patient was started on Tylenol 3 last visit and he reported that he stopped taking it because he did not get adequate pain relief and he had side effects from it and currently is interested in interventional pain management Patient is currently on Tyl, Ibu Patient denies any side effects of the medication(s), denies excessive drowsiness or sleepiness, denies suicidal ideation and reports that the current pain medication is helping to control the pain and improve activities of daily living. Patient denies any motor or sensory deficits. Patient denies any fever or night sweats, denies any change in the bowel movements or urination. Physical Examination: -Constitutional: Cooperative. Not in acute distress . - Neurologic: Cranial nerve II to XII intact. No focal neurological deficits. - Psychatric: Alert & oriented x 3. Matching mood & appropriate affect. Judgment and insight intact. - Musculoskeletal: Cervical spine: Muscle bulk/ tone/ strength in the bilateral upper extremities normal Vertebral body tenderness to palpation over Spurling test positive Distraction test positive Facet loading test positive TTP Thoracic spine Muscle bulk / tone/ strength in the bilateral paraspinal muscles normal Vertebral body tender to palpation over Facet loading test positive TTP Lumbar spine: Motor bulk/ tone/ strength lower extremities , thigh and legs : 5/5 Deep tendon reflexes : Normal Knee Jerk. Normal Ankle Jerk . Vertebral body tenderness to palpation over L2, L3, L4 Lumbar Facet Loading Test positive Straight Leg Raise: positive at 30 degrees right side/ left side Gaenslen's Test positive Sacral spine : Severe tenderness over the Sacroiliac joint: right side / left side Range of motion: Flexion of the lumbar spine <60 degrees Range of motion: Extension of the lumbar spine <20 degrees Gaenslen's Test positive right side / left side Pranav test: positive right side / left side Thigh Thrust Test positive right side / left side Sacral Thrust Test positive right side / left side Imaging: CT noncontrast of the lumbar spine from 05/26/22 reviewed Assessment and plan: Chronic LBP secondary to lumbar DDD, spondylosis with facet arthropathy without myelopathy Patient will be good candidate for diagnostic medial branch block lumbar area at L4 5 and L5-S1 And if we have a positive result will proceed with RFA of the medial branch at the levels mentioned above Oswestry disability score is 42 PQRS Narrative: Smoking Status Former smoker Hx Alcohol Use (MH) No Home Medications: Ambulatory Orders Spironolactone [Aldactone] 12.5 mg PO DAILY 12/03/16 Aspirin [Adult Low Dose Aspirin EC] 81 mg PO DAILY 11/16/17 Atorvastatin [Lipitor] 80 mg PO DAILY 03/03/21 Omeprazole 40 mg PO DAILY 03/03/21 Cetirizine HCl [Zyrtec] 10 mg PO DAILY 01/02/22 Amiodarone [Cordarone] 400 mg PO BID #120 tab 01/05/22 Losartan [Cozaar] 100 mg PO DAILY #90 tab 01/06/22 Metoprolol Succinate (ER) [Toprol XL] 75 mg PO HS #90 tab 01/06/22 Sennosides [Senokot] 17.2 mg PO HS PRN tab 01/06/22 Acetaminophen-Codeine 300-30mg [Tylenol w/codeine #3] 1 tab PO Q8H PRN 30 Days #90 tablet 06/18/22 Controlled Substance Measures - Controlled Substance Measures Is patient prescribed a controlled substance at discharge?: no Objective - Vital Signs Vital signs: Intake & Output 09/27/22 09/28/22 09/28/22 18:59 06:59 18:59 Weight 86.183 kg
[2022-09-28 11:06] VITALS: BP 171/86; PULSE 55; RESP 16; TEMP 98
== END ==
LOC: PNWHC3 10:08
PROVIDERS: ATTEND Specialist
DX: M51.36 Other intervertebral disc degeneration, lumbar region (principal); M47.816 Spondylosis without myelopathy or radiculopathy, lumbar region; G89.29 Other chronic pain; Z87.891 Personal history of nicotine dependence; Z79.82 Long term (current) use of aspirin; Z91.040 Latex allergy status; Z88.8 Allergy status to other drugs, medicaments and biological substances
CPT/HCPCS: 99211

== ENCOUNTER 2022-10-09 09:10 | Day surgery (SDC) | payer MEDICARE ==
[2022-10-06 14:49] VITALS: BMI 28.0
[2022-10-09] MEDS ORDERED: LACTATED RINGERS 1,000 ML IV SCH (09:22)
[2022-10-09 09:42] VITALS: TEMP 97.2
[2022-10-09] MEDS ORDERED: LABETALOL 5 MG/ML VIAL MDV ONE (09:53)
[2022-10-09] MEDS ORDERED: fentaNYL (PF) 50 MCG/ML 2 ML AMP ONE (09:53)
[2022-10-09] MEDS ORDERED: methylPREDNISolone ACETATE 40 MG/ML 1 ML VIAL ONE (09:59)
[2022-10-09] MEDS ORDERED: ROPIVACAINE 5MG/ML 20ML VIAL ONE (09:59)
--- NOTE | 2022-10-09 10:12 | P.PCN ---
Date of Procedure: 10/09/22 Procedure(s) Performed: PREOPERATIVE DIAGNOSIS : 1- Lumbar spondylosis with Facet Arthropathy without myelopathy . 2- Lumber degenerative disc disease POSTOPERATIVE DIAGNOSIS: 1- Lumbar spondylosis with Facet Arthropathy without myelopathy . 2- Lumber degenerative disc disease PROCEDURE: Diagnostic bilateral L3 , L4 , and L5 medial branch block under fluoroscopy guidance(fluoroscopy images available in the radiology Department ) ( To target the facet joint between Bilateral L4-5 , and L5-S1 )#1st ANESTHESIA:, Monitored anesthesia care as per anesthesia department. EBL: Minimal COMPLICATION: None PROCEDURE INDICATION: Chronic low back pain secondary to Facet arthropathy unresponsive to conservative treatment. PROCEDURE DESCRIPTION: the patient was seen and identified in the preop holding area , risks and benefits and possible complications of the procedure and alternative were discussed with the patient, and the patient agreed to proceed with the procedure and signed the consent and vital signs monitored during the procedure and fluoroscopy was used to maximize the benefit and accuracy of the needle placement, and sedation was given to decrease patient anxiety, patient was taken to the procedure room and placed in prone position vital signs monitored in the back prepped with chlorhexidine X3 then under strict sterile technique using a right oblique fluoroscopy ,the junction of the transverse process and the superior articulating process of the right L3 , L4 , and L5 vertebra which corresponding to the fluoroscopy image of the eye of the Yousuf dog on the block side for the medial branches and subsequently , after local infiltration of skin and subcu tissuies with Ropivacaine 0.5 % , one mL at each level ,then 22-gauge Quincke-type needles , 3 needle was used , each one of them placed at the junction of the base of the transverse process and the superior articular process at the appropriate level, and the needle was advanced until the periosteum contacted, needle placement confirmed with AP oblique and lateral view and after appropriate needle placement confirmed, and after negative aspiration for heme and CSF and there was no paresthesia 1-1/2 mL of Ropivacaine 0.5% mixed with 20 mg Depo-Medrol , then half mL injected at each level after negative aspiration the needle subsequently removed and the same procedure repeated for the left side at left side at L3 , L4 and L5 levels. At the end of the procedure and the needles removed and a bandage applied after the skin was cleaned the cleaning solution patient taken to recovery room in stable condition and monitors in the recovery room for 20-30 minutes and discharged home in stable condition after discharge criteria met and patient will follow up with the pain clinic in 2-4 weeks
[2022-10-09] MEDS ORDERED: IV FLUID CONTINUATION 750 ML IV ONE (10:18)
[2022-10-09 10:48] VITALS: BP 174/78; PULSE 77; RESP 20
--- NOTE | 2022-10-09 16:22 | FL ---
Intraoperative/procedural fluoroscopic services were provided. Total fluoroscopy time is 11.6 seconds with a total of 4 submitted images to PACS. Please see the operative/procedural note for further det ails. DAP: 0.61052 mGym2
== END 2022-10-09 10:57 | disposition home or self-care (01) ==
LOC: ORPAIN 09:10
DX: M51.36 Other intervertebral disc degeneration, lumbar region (principal); M47.816 Spondylosis without myelopathy or radiculopathy, lumbar region; G89.29 Other chronic pain; I25.10 Atherosclerotic heart disease of native coronary artery without angina pectoris; I11.0 Hypertensive heart disease with heart failure; I50.9 Heart failure, unspecified; E78.5 Hyperlipidemia, unspecified; Z87.891 Personal history of nicotine dependence; Z79.899 Other long term (current) drug therapy; E07.9 Disorder of thyroid, unspecified; K21.9 Gastro-esophageal reflux disease without esophagitis; Z79.890 Hormone replacement therapy
CPT/HCPCS: 64493; 64494 ×2; J1030; J3010; J2795; J1920

== ENCOUNTER → 2022-11-04 | Outpatient (CLI) | payer MEDICARE ==
[2022-11-04 13:18] VITALS: BP 143/78; PULSE 57; RESP 16; TEMP 97.6
--- NOTE | 2022-11-04 14:18 | P.PAINPG ---
PQRS Measure Charge Sheet Comment: A 87 yr old frail, wheelchair bound, legally blind and [place] male w nephew at side with a history of severe and chronic LBP x 9 mo secondary to lumbar DDD and spondylosis with facet arthropathy without myelopathy presents for evaluation s/p BL MBB L4-L5, L5-S1 #1. Pt states he experienced 100 % pain relief x 6 days s/p procedure. Pain level is provoked at 8/10 in intensity, constant, localized in the lumbar spine, dull in character without shooting pain. Pain is provoked by standing, walking for periods of 15 min or more, bending, lifting. Pain is alleviated with heat, ice, medications, topical PT years ago, physician guided home stretches which he does daily since 2019, chiropractor states treatment is contraindicated due to surgeries, repositioning and rest. Oswestry disability score is 30. Interventional procedures include BL MBB L3-L5 x1 Patient is currently on Tyl, Ibu Patient denies any side effects of the medication(s), denies excessive drowsiness or sleepiness, denies suicidal ideation and reports that the current pain medication is helping to control the pain and improve activities of daily living. Patient denies any motor or sensory deficits. Patient denies any fever or night sweats, denies any change in the bowel movements or urination. Physical Examination: -Constitutional: Cooperative. Not in acute distress . - Neurologic: Cranial nerve II to XII intact. No focal neurological deficits. - Psychatric: Alert & oriented x 3. Matching mood & appropriate affect. Judgment and insight intact. - Musculoskeletal: Cervical spine: Muscle bulk/ tone/ strength in the bilateral upper extremities normal Vertebral body tenderness to palpation over Spurling test positive Distraction test positive Facet loading test positive TTP Thoracic spine Muscle bulk / tone/ strength in the bilateral paraspinal muscles normal Vertebral body tender to palpation over Facet loading test positive TTP Lumbar spine: Motor bulk/ tone/ strength lower extremities , thigh and legs : 5/5 Deep tendon reflexes : Normal Knee Jerk. Normal Ankle Jerk . Vertebral body tenderness to palpation Lumbar Facet Loading Test positive over BL L4-L5, L5-S1 Straight Leg Raise: positive at 30 degrees right side/ left side Gaenslen's Test positive Sacral spine : Severe tenderness over the Sacroiliac joint: right side / left side Range of motion: Flexion of the lumbar spine <60 degrees Range of motion: Extension of the lumbar spine <20 degrees Gaenslen's Test positive right side / left side Pranav test: positive right side / left side Thigh Thrust Test positive right side / left side Sacral Thrust Test positive right side / left side Imaging: CT noncontrast of the lumbar spine from 05/26/22 reviewed Assessment and plan: Chronic LBP secondary to lumbar DDD, spondylosis with facet arthropathy without myelopathy Recommendation of BL MBB L4-L5, l5-S1 #2. May need a series of injections, up until RFA, for optimal pain relief. Risks, benefits of procedure discussed and patient verbalized understanding. Protocol for discontinuation/continuation of medications throbbing procedure discussed. All questions answered. PQRS Narrative: Smoking Status Former smoker Hx Alcohol Use (MH) No Home Medications: Ambulatory Orders Spironolactone [Aldactone] 12.5 mg PO DAILY 12/03/16 Aspirin [Adult Low Dose Aspirin EC] 81 mg PO DAILY 11/16/17 Atorvastatin [Lipitor] 80 mg PO DAILY 03/03/21 Metoprolol Succinate (ER) [Toprol XL] 75 mg PO HS #90 tab 01/06/22 Sennosides [Senokot] 17.2 mg PO HS PRN tab 01/06/22 Baclofen 5 mg PO DAILY 09/28/22 Nitroglycerin 0.4 mg SL DIRECTED PRN 09/28/22 Pantoprazole [Protonix] 40 mg PO DAILY 09/28/22 lisinopriL [Zestril] 40 mg PO DAILY 09/28/22 polyethylene glycoL 3350 [Miralax] 17 gm PO DAILY 09/28/22 Furosemide [Lasix] 20 mg PO DAILY 10/06/22 Controlled Substance Measures - Controlled Substance Measures Is patient prescribed a controlled substance at discharge?: No
== END ==
LOC: PNWHC3 10:12
PROVIDERS: ATTEND Specialist
DX: M51.37 Other intervertebral disc degeneration, lumbosacral region (principal); M47.817 Spondylosis without myelopathy or radiculopathy, lumbosacral region; G89.29 Other chronic pain; Z87.891 Personal history of nicotine dependence; Z79.82 Long term (current) use of aspirin; Z91.040 Latex allergy status; Z88.8 Allergy status to other drugs, medicaments and biological substances
CPT/HCPCS: 99211

== ENCOUNTER → 2022-11-19 | Day surgery (SDC) | payer MEDICARE ==
[2022-11-13 17:19] VITALS: BMI 28.0
[~2022-11-19] MED LIST changes: -HYDROmorphone 0.5 MG/0.5 ML SYRINGE IVP PRN; +IV FLUID CONTINUATION 600 ML IV ONE; -LIDOCAINE 1% 20 ML VIAL (10MG/ML) FOR IV START INTRADERMA PRN; +MIDAZOLAM 2 MG/2 ML VIAL ONE; -ONDANSETRON 4 MG/2 ML VIAL IVP ONE; +ROPIVACAINE 5MG/ML 20ML VIAL ONE; +TRIAMCINOLONE ACETONIDE 40 MG/ML 1 ML VIAL ONE; -ceFAZolin IN SWFI 2 GM/20 ML SYRINGE IVP ONE; -fentaNYL (PF) 50 MCG/ML 2 ML AMP IV PRN
[2022-11-19 12:21] VITALS: TEMP 97
--- NOTE | 2022-11-19 13:33 | P.PCN ---
Date of Procedure: 11/19/22 Surgeon: Paul Johns Pathology: none sent Condition: stable Disposition: PACU Description of Procedure: PREOPERATIVE DIAGNOSIS : 1- Lumbar spondylosis with Facet Arthropathy without myelopathy . 2- Lumber degenerative disc disease POSTOPERATIVE DIAGNOSIS: 1- Lumbar spondylosis with Facet Arthropathy without myelopathy . 2- Lumber degenerative disc disease PROCEDURE: Diagnostic bilateral L4 -5 , and L5-S1 medial branch block under fluoroscopy Physician: Paul Johns MD ANESTHESIA: Local with 1% lidocaine; IV moderate conscious sedation with Versed 0.5 mg . EBL: Negligible COMPLICATION: None. Of note the patient has an AICD in situ. PROCEDURE INDICATION: Chronic low back pain secondary to Facet arthropathy unresponsive to conservative treatment. PROCEDURE DESCRIPTION: the patient was seen and identified in the preop holding area , risks and benefits and possible complications of the procedure and alternatives were discussed with the patient, and the patient agreed to proceed with the procedure and signed the consent. IV was started and vital signs monitored during the procedure and fluoroscopy was used to maximize the benefit and accuracy of the needle placement, sedation was given to decrease patient anxiety, patient was taken to the procedure room and placed in prone position vital signs monitored. The patient was brought into the procedure room and placed in prone position. Skin was prepped with Chloraprep and draped in a sterile manner. Lidocaine 1% was used to numb the skin up at the target points that were chosen as follows: at the L5-S1 level which corresponds to the dorsal ramus of L5 the target points were at the superior medial aspect of the sacral ala on each side of the spine on the AP view of fluoroscopy, and for the L3 and L4 medial branches the target points were the connection between the transverse process and the superior articular process of L4 and L5 respectively on the oblique views of fluoroscopy. I used 22-gauge 3-1/2 inch Quincke spinal needles for this procedure and after contacting bone at the target points mentioned above I injected 1 mL of a mixture of Kenalog 40 mg +5 MLS of Ropivacaine 0.5% PF . Patient tolerated procedure well. At the end of the procedure the needles removed and a bandage applied after the skin was cleaned the cleaning solution. patient was then taken to the recovery room in stable condition and monitored in the recovery room for 20-30 minutes and discharged home in stable condition after discharge criteria met . A copy of the needle placement picture was saved to the C-arm machine. Sedation time: 4490-7063
--- NOTE | 2022-11-19 13:42 | FL ---
Fluoroscopy History: Cam Lumbar Facet 18.8 seconds fluoroscopic time for therapeutic bilateral lumbar facet injection.
[2022-11-19 13:48] VITALS: PULSE 58; RESP 18
[2022-11-19 14:13] VITALS: BP 178/89
== END ==
LOC: ORPAIN 11:50
PROVIDERS: ATTEND Anesthesiology
DX: M47.816 Spondylosis without myelopathy or radiculopathy, lumbar region (principal); M51.36 Other intervertebral disc degeneration, lumbar region; G89.29 Other chronic pain; I50.9 Heart failure, unspecified; Z95.810 Presence of automatic (implantable) cardiac defibrillator; Z91.040 Latex allergy status; Z88.8 Allergy status to other drugs, medicaments and biological substances
CPT/HCPCS: 64493; 64494 ×2; 99152; J2250; J3301; J2795

== ENCOUNTER → 2022-12-07 | Outpatient (CLI) | payer MEDICARE ==
[2022-12-07 12:02] VITALS: BP 173/81; PULSE 97; RESP 16; TEMP 97
--- NOTE | 2022-12-07 14:22 | P.PAINPG ---
PQRS Measure Charge Sheet Comment: A 87 yr old frail, wheelchair bound, legally blind and [place] male w nephew at side with a history of severe and chronic LBP x 9 mo secondary to lumbar DDD and spondylosis with facet arthropathy without myelopathy presents for evaluation s/p BL MBB L4-L5, L5-S1 #2. Pt states he experienced 90 % pain relief x 14 days s/p procedure. Pain level is provoked at 8/10 in intensity, constant, localized in the lumbar spine L> R, dull in character without shooting pain. Pain is provoked by standing, walking for periods of 15 min or more, bending, lifting. Pain is alleviated with heat, ice, medications, topical PT years ago, physician guided home stretches which he does daily since 2019, chiropractor states jarred tment is contraindicated due to surgeries, repositioning and rest. Oswestry disability score is 30. Interventional procedures include BL MBB L3-L5 x2 Patient is currently on Tyl, Ibu Patient denies any side effects of the medication(s), denies excessive drowsiness or sleepiness, denies suicidal ideation and reports that the current pain medication is helping to control the pain and improve activities of daily living. Patient denies any motor or sensory deficits. Patient denies any fever or night sweats, denies any change in the bowel movements or urination. Physical Examination: -Constitutional: Cooperative. Not in acute distress . - Neurologic: Cranial nerve II to XII intact. No focal neurological deficits. - Psychatric: Alert & oriented x 3. Matching mood & appropriate affect. Judgment and insight intact. - Musculoskeletal: Cervical spine: Muscle bulk/ tone/ strength in the bilateral upper extremities normal Vertebral body tenderness to palpation over Spurling test positive Distraction test positive Facet loading test positive TTP Thoracic spine Muscle bulk / tone/ strength in the bilateral paraspinal muscles normal Vertebral body tender to palpation over Facet loading test positive TTP Lumbar spine: Motor bulk/ tone/ strength lower extremities , thigh and legs : 5/5 Deep tendon reflexes : Normal Knee Jerk. Normal Ankle Jerk . Vertebral body tenderness to palpation Lumbar Facet Loading Test positive over BL L4-L5, L5-S1 Straight Leg Raise: positive at 30 degrees right side/ left side Gaenslen's Test positive Sacral spine : Severe tenderness over the Sacroiliac joint: right side / left side Range of motion: Flexion of the lumbar spine <60 degrees Range of motion: Extension of the lumbar spine <20 degrees Gaenslen's Test positive right side / left side Pranav test: positive right side / left side Thigh Thrust Test positive right side / left side Sacral Thrust Test positive right side / left side Imaging: CT noncontrast of the lumbar spine from 05/26/22 reviewed Assessment and plan: Chronic LBP secondary to lumbar DDD, spondylosis with facet arthropathy without myelopathy Recommendation of BL RFA L4-L5, L5-S1. Pt exhibited optimal pain relief w prior MBB procedures. Risks, benefits of procedure discussed and patient verbalized understanding. Protocol for discontinuation/continuation of medications throbbing procedure discussed. All questions answered. PQRS Narrative: Smoking Status Former smoker Hx Alcohol Use (MH) No Home Medications: Ambulatory Orders Spironolactone [Aldactone] 12.5 mg PO DAILY 12/03/16 Aspirin [Adult Low Dose Aspirin EC] 81 mg PO DAILY 11/16/17 Atorvastatin [Lipitor] 80 mg PO DAILY 03/03/21 Sennosides [Senokot] 17.2 mg PO HS PRN tab 01/06/22 Baclofen 5 mg PO DAILY 09/28/22 Nitroglycerin 0.4 mg SL DIRECTED PRN 09/28/22 lisinopriL [Zestril] 40 mg PO DAILY 09/28/22 polyethylene glycoL 3350 [Miralax] 17 gm PO DAILY 09/28/22 Furosemide [Lasix] 20 mg PO DAILY 10/06/22 HYDROcodone/APAP 5-325MG [[place] 5-325] 1 tab PO Q6H PRN 11/04/22 Omeprazole 40 mg PO DAILY 11/04/22 Losartan [Cozaar] 50 mg PO DAILY 11/13/22 Metoprolol Succinate (ER) [Toprol XL] 75 mg PO DAILY 11/13/22 Controlled Substance Measures - Controlled Substance Measures Is patient prescribed a controlled substance at discharge?: No
== END ==
LOC: PNWHC3 09:52
PROVIDERS: ATTEND Specialist
DX: M51.37 Other intervertebral disc degeneration, lumbosacral region (principal); M47.817 Spondylosis without myelopathy or radiculopathy, lumbosacral region; G89.29 Other chronic pain; Z87.891 Personal history of nicotine dependence; Z79.82 Long term (current) use of aspirin; Z88.8 Allergy status to other drugs, medicaments and biological substances; Z91.040 Latex allergy status
CPT/HCPCS: 99211

== ENCOUNTER 2022-12-25 08:32 | Day surgery (SDC) | payer MEDICARE ==
[2022-12-24 08:55] VITALS: BMI 29.3
[2022-12-25 09:14] VITALS: TEMP 97.8
[2022-12-25] MEDS ORDERED: LACTATED RINGERS 1,000 ML IV SCH (09:15)
[2022-12-25] MEDS ORDERED: fentaNYL (PF) 50 MCG/ML 2 ML AMP ONE (09:19)
[2022-12-25] MEDS ORDERED: ROPIVACAINE 5MG/ML 20ML VIAL ONE (09:19)
[2022-12-25] MEDS ORDERED: IV FLUID CONTINUATION 1,000 ML IV ONE (10:09)
--- NOTE | 2022-12-25 10:21 | FL ---
Intraoperative/procedural fluoroscopic services were provided for bilateral lumbar rad frequency. Tot al fluoroscopy time is 51.6 seconds with a total of 5 submitted images to PACS. Total DAP 0.22872 mGy m2. Please see the operative note for further details.
--- NOTE | 2022-12-25 10:25 | P.PCN ---
Description of Procedure: PREOPERATIVE DIAGNOSIS: 1-Lumbar Spondylosis with Facet Arthropathy without myelopathy. 2- Lumber degenerative disc disease. POSTOPERATIVE DIAGNOSIS: 1- Lumbar Spondylosis with Facet Arthropathy without myelopathy. 2- Lumber degenerative disc disease. PROCEDURES : Bilateral Radiofrequency thermocoagulation, L3 , L4 , and L5 medial branch, with fluoroscopic guidance (fluoroscopy images available in the radiology department) ( to denervate the facet joint at bilateral L4-5 ,and L5-S1 levels ). ANESTHESIA: Monitored anesthesia care as per anesthesia department EBL: Minimal PROCEDURE INDICATION: The patient with low back pain secondary to lumbar facet arthropathy who had more than 50% relief of her pain with previous diagnostic lumbar medial branch block with bupivacaine. PROCEDURE DESCRIPTION / TECHNIQUE: The patient was seen and identified in the preoperative area. Risks, benefits, complications, including but not limited to risk of infection ,bleeding , allergic reactions to the medications and no complete pain releife , and alternatives were discussed with the patient, the patient agreed to proceed with the procedure and signed the consent. IV was started. Vital signs remained stable throughout the procedure. Patient was taken to the OR and time out was completed. The patient was placed in the prone position on the procedure table. The lumber area was prepped and draped in the usual sterile fashion. . Vital signs were closely monitored during the procedure .IV sedation was used during the procedure to decrease patients anxiety. Using AP and then oblique fluoroscopy, the ``eye of the Yousuf dog corresponding to the connection between the superior and transverse articular processes of rightL4, and L5 vertebra were identified, marked, and localized with 1% lidocaine. Subsequently, a [id number] radiofrequency cannula with a 10-mm active tip was advanced guided by fluoroscopy to each of the``eyes of the Yousuf dog at right L4, and L5. Also radiofrequency needle was introduced at the junction of the superior articular process with right ilial of the sacrum on review of the fluoroscope. Each site then underwent sensory testing at 50 Hz and 0 to 1 volt and motor testing at 2.5 Hz and 0 to 3 volt with local stimulation, but no radi cular symptoms down the legs. Thereafter each sites underwent radiofrequency thermocoagulation at 80 degrees celsius for 90 seconds after injecting 1 ml of PF Ropivacaine. Second lesion were done at each of the points after rotating the needle 180 with same settings. The same procedure was repeated at the level of Left L3, L4, and L5, S1 vertebral levels. At the end of the procedure, the skin was cleansed and bandages were applied. COMPLICATIONS: No acute complications. DISPOSITION / PLANS: The patient was placed in a supine position and transferred to the recovery area in a stable condition for observation and was discharged from the recovery room after meeting discharge criteria. Home discharge instructions given to the patient by the staff. The patient was reexamined prior to discharge. The patient will schedule a follow up in the clinic in 2-4 weeks.
[2022-12-25 10:27] VITALS: RESP 16
[2022-12-25 10:51] VITALS: BP 154/87; PULSE 74
== END 2022-12-25 10:39 | disposition home or self-care (01) ==
LOC: ORPAIN 08:32
PROVIDERS: ATTEND Pain Medicine Interventional Pain Medicine
DX: M51.36 Other intervertebral disc degeneration, lumbar region (principal); M47.816 Spondylosis without myelopathy or radiculopathy, lumbar region; I25.2 Old myocardial infarction; I25.10 Atherosclerotic heart disease of native coronary artery without angina pectoris; I11.9 Hypertensive heart disease without heart failure; E78.5 Hyperlipidemia, unspecified; Z95.5 Presence of coronary angioplasty implant and graft; K21.9 Gastro-esophageal reflux disease without esophagitis; Z79.01 Long term (current) use of anticoagulants; Z79.1 Long term (current) use of non-steroidal anti-inflammatories (NSAID); Z79.811 Long term (current) use of aromatase inhibitors; Z79.82 Long term (current) use of aspirin; Z79.899 Other long term (current) drug therapy; Z91.040 Latex allergy status; Z88.8 Allergy status to other drugs, medicaments and biological substances
CPT/HCPCS: 64635; 64636 ×2; J2001; J3010; J2795

== ENCOUNTER → 2023-01-27 | Outpatient (CLI) | payer MEDICARE ==
[2023-01-27 11:04] VITALS: BP 128/70; PULSE 75; RESP 15; TEMP 98.2
--- NOTE | 2023-01-27 12:57 | P.PAINPG ---
Objective - Vital Signs Vital signs: Intake & Output 01/26/23 01/27/23 01/27/23 18:59 06:59 18:59 Weight 87.09 kg PQRS Measure Charge Sheet Comment: A 87 yr old frail, wheelchair bound, legally blind and [place] male w nephew at side with a history of severe and chronic LBP x 9 mo secondary to lumbar DDD and spondylosis with facet arthropathy without myelopathy presents for evaluation s/p BL RFA L4-L5, L5-S1. Pt states he experienced 0 % pain relief. Pain level is provoked at 7/10 in intensity, constant, predominantly axial, localized in the lumbar spine L> R, dull in character without shooting pain. Pain is provoked by standing, walking for periods of 15 min or more, bending, lifting. Pain is alleviated with heat, ice, medications, topical PT years ago, physician guided home stretches which he does daily since 2019, chiropractor states treatment is contraindicated due to surgeries, repositioning and rest. Oswestry disability score is 31. Interventional procedures include BL RFA L3-L5 Patient is currently on Tyl, Ibu Patient denies any side effects of the medication(s), denies excessive drowsiness or sleepiness, denies suicidal ideation and reports that the current pain medication is helping to control the pain and improve activities of daily living. Patient denies any motor or sensory deficits. Patient denies any fever or night sweats, denies any change in the bowel movements or urination. Physical Examination: -Constitutional: Cooperative. Not in acute distress . - Neurologic: Cranial nerve II to XII intact. No focal neurological deficits. - Psychatric: Alert & oriented x 3. Matching mood & appropriate affect. Judgment and insight intact. - Musculoskeletal: Cervical spine: Muscle bulk/ tone/ strength in the bilateral upper extremities normal Vertebral body tenderness to palpation over Spurling test positive Distraction test positive Facet loading test positive TTP Thoracic spine Muscle bulk / tone/ strength in the bilateral paraspinal muscles normal Vertebral body tender to palpation over Facet loading test positive TTP Lumbar spine: Motor bulk/ tone/ strength lower extremities , thigh and legs : 5/5 Deep tendon reflexes : Normal Knee Jerk. Normal Ankle Jerk . Vertebral body tenderness to palpation Lumbar Facet Loading Test positive over BL L4-L5, L5-S1 Straight Leg Raise: positive at 30 degrees right side/ left side Gaenslen's Test positive Sacral spine : Severe tenderness over the Sacroiliac joint: right side / left side Range of motion: Flexion of the lumbar spine <60 degrees Range of motion: Extension of the lumbar spine <20 degrees Gaenslen's Test positive right side / left side Pranav test: positive right side / left side Thigh Thrust Test positive right side / left side Sacral Thrust Test positive right side / left side Imaging: CT noncontrast of the lumbar spine from 05/26/22 reviewed Assessment and plan: Chronic LBP secondary to lumbar DDD, spondylosis with facet arthropathy without myelopathy Recommendation of medication management. All questions answered. PQRS Narrative: Smoking Status Former smoker Hx Alcohol Use (MH) No Home Medications: Ambulatory Orders Spironolactone [Aldactone] 12.5 mg PO DAILY 12/03/16 Aspirin [Adult Low Dose Aspirin EC] 81 mg PO DAILY 11/16/17 Atorvastatin [Lipitor] 80 mg PO DAILY 03/03/21 Sennosides [Senokot] 17.2 mg PO HS PRN tab 01/06/22 Baclofen 5 mg PO DAILY 09/28/22 Nitroglycerin 0.4 mg SL DIRECTED PRN 09/28/22 polyethylene glycoL 3350 [Miralax] 17 gm PO DAILY 09/28/22 Furosemide [Lasix] 20 mg PO DAILY 10/06/22 HYDROcodone/APAP 5-325MG [Causey 5-325] 1 tab PO Q6H PRN 11/04/22 Omeprazole 40 mg PO DAILY 11/04/22 Losartan [Cozaar] 50 mg PO DAILY 11/13/22 Metoprolol Succinate (ER) [Toprol XL] 75 mg PO DAILY 11/13/22 lisinopriL 40 mg PO DAILY 12/25/22 Diclofenac Sodium Gel [Voltaren 1% Gel] 4 gm TOPICAL QID 30 Days #100 gm 01/27/23 Controlled Substance Measures - Controlled Substance Measures Is patient prescribed a controlled substance at discharge?: No
== END ==
LOC: PNWHC3 10:20
PROVIDERS: ATTEND Specialist
DX: M51.36 Other intervertebral disc degeneration, lumbar region (principal); M47.816 Spondylosis without myelopathy or radiculopathy, lumbar region; G89.29 Other chronic pain; Z87.891 Personal history of nicotine dependence; Z79.82 Long term (current) use of aspirin; Z91.040 Latex allergy status; Z88.8 Allergy status to other drugs, medicaments and biological substances
CPT/HCPCS: 99211

== ENCOUNTER 2023-03-05 16:53 | Emergency (ER) | payer MEDICARE ==
[2023-03-05 17:16] VITALS: RESP 18
[2023-03-05] MEDS ORDERED: SODIUM CHLORIDE 0.9% 1,000 ML IV STA (17:43)
--- NOTE | 2023-03-05 17:44 | ED ---
Altered Mental Status HPI - General Source: EMS, RN notes reviewed, old records reviewed Mode of arrival: EMS Limitations: altered mental status - History of Present Illness MD Complaint: altered mental status, confusion -: days(s) Consistency of Symptoms: waxing and waning Associated Symptoms: denies other symptoms Treatments Prior to Arrival: IV fluid <Jose Garcia - Last Filed: 03/05/23 21:10> <Chance Hanson - Last Filed: 03/05/23 22:35> - General Chief Complaint: Altered Mental Status Stated Complaint: AMS Time Seen by Provider: 03/05/23 16:58 - History of Present Illness Initial Comments: This is a 87-year-old male to the ER today for evaluation of altered mental status today. Patient does have family patient is appropriate prior to arrival (Jose Garcia) - Related Data Home Medications Medication Instructions Recorded Confirmed Spironolactone [Aldactone] 12.5 mg PO DAILY 12/03/16 01/27/23 Aspirin [Adult Low Dose Aspirin EC] 81 mg PO DAILY 11/16/17 01/27/23 Atorvastatin [Lipitor] 80 mg PO DAILY 03/03/21 01/27/23 Baclofen 5 mg PO DAILY 09/28/22 01/27/23 Nitroglycerin 0.4 mg SL DIRECTED PRN 09/28/22 01/27/23 polyethylene glycoL 3350 [Miralax] 17 gm PO DAILY 09/28/22 01/27/23 Furosemide [Lasix] 20 mg PO DAILY 10/06/22 01/27/23 HYDROcodone/APAP 5-325MG [Cassandra 1 tab PO Q6H PRN 11/04/22 01/27/23 5-325] Omeprazole 40 mg PO DAILY 11/04/22 01/27/23 Losartan [Cozaar] 50 mg PO DAILY 11/13/22 01/27/23 Metoprolol Succinate (ER) [Toprol 75 mg PO DAILY 11/13/22 01/27/23 XL] lisinopriL 40 mg PO DAILY 12/25/22 01/27/23 Previous Rx's Medication Instructions Recorded Sennosides [Senokot] 17.2 mg PO HS PRN tab 01/06/22 Diclofenac Sodium Gel [Voltaren 1% 4 gm TOPICAL QID 30 Days #100 gm 01/27/23 Gel] Allergies Allergy/AdvReac Type Severity Reaction Status Date / Time amlodipine besylate Allergy Rash/Hives Verified 01/27/23 10:29 [From Norvasc] isosorbide [From Imdur] Allergy Unknown Verified 01/27/23 10:29 Latex, Natural Rubber Allergy Rash/Hives Verified 01/27/23 10:29 Review of Systems ROS Other: All systems not noted in ROS Statement are negative. <Jose Garcia - Last Filed: 03/05/23 21:10> ROS Other: All systems not noted in ROS Statement are negative. <Chance Hanson - Last Filed: 03/05/23 22:35> ROS Statement: Those systems with pertinent positive or pertinent negative responses have been documented in the HPI. Past Medical History Past Medical History: Coronary Artery Disease (CAD), Heart Failure, Eye Disorder, GERD/Reflux, GI Bleed, Hyperlipidemia, Hypertension, Myocardial Infarction (OK), Osteoarthritis (OA), Prostate Disorder, Thyroid Disorder Additional Past Medical History / Comment(s): cardiomyopathy, DENGENERATIVE ARTHRITIS, MACULAR DEGENERATION AND CATARACTS,GI BLEED 2011, fall 11-24-16/facial inj/bruing/broken front teeth,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 , LEGALLY BLIND, FELL AND CUT HIS LT ARM-NO STITCHES NEEDED BUT PUT ON ANTIBIOTICS PREVENTATIVE-STILL HAS BRUISING.-NOTIFIED [facility] IN PAIN CLINIC-SEE NN PLEASE Last Myocardial Infarction Date:: History of Any Multi-Drug Resistant Organisms: None Reported Past Surgical History: Adenoidectomy, AICD, Appendectomy, Cholecystectomy, Heart Catheterization, Heart Catheterization With Stent, Joint Replacement, Orthopedic Surgery, Pacemaker, Tonsillectomy Additional Past Surgical History / Comment(s): AICD, Defrillation Testing 04/02/14, TOTAL LT/RT KNEE ARTHROPLASTY, bilateral CATARACTS, bilateral carpal tunnel releases, PARTIAL THYROIDECTOMY due to nodules, trigger fingers,heart stents x3, PAIN CLINIC PROCEDURES Past Anesthesia/Blood Transfusion Reactions: No Reported Reaction Additional Past Anesthesia/Blood Transfusion Reaction / Comment(s): wakes up during surgery,no hx blood transfusion Date of Last Stent Placement:: Type of Cardiac Device: Biventricular Pacemaker, AICD Device Placement Date:: 12-04-13 [employer] Past Psychological History: No Psychological Hx Reported Smoking Status: Former smoker Past Alcohol Use History: None Reported Past Drug Use History: None Reported - Past Family History Son(s) Family Medical History: No Reported History Father Family Medical History: Cancer, Coronary Artery Disease (CAD), CVA/TIA, Diabetes Mellitus Additional Family Medical History / Comment(s): CAROTID ARTERY BLOCKAGE.SX IN 1988 Mother Family Medical History: Unable to Obtain Additional Family Medical History / Comment(s): AT AGE 89- UNK HX Daughter(s) Family Medical History: Cancer (Patient has 2 adopted daughters and he has been under a lot of stress with his adopted daughter whom her left taking her cars with him.) BROTHER Family Medical History: Cancer Additional Family Medical History / Comment(s): BONE, PANCREATIC <Jose Garcia - Last Filed: 03/05/23 21:10> General Exam Limitations: altered mental status General appearance: alert, in no apparent distress Head exam: Present: atraumatic, normocephalic, normal inspection Eye exam: Present: normal appearance, PERRL, EOMI. Absent: scleral icterus, conjunctival injection, periorbital swelling ENT exam: Present: normal exam, mucous membranes moist Neck exam: Present: normal inspection. Absent: tenderness, meningismus, lymphadenopathy Respiratory exam: Present: normal lung sounds bilaterally. Absent: respiratory distress, wheezes, rales, rhonchi, stridor Cardiovascular Exam: Present: regular rate, normal rhythm, normal heart sounds. Absent: systolic murmur, diastolic murmur, rubs, gallop, clicks GI/Abdominal exam: Present: soft, normal bowel sounds. Absent: distended, tenderness, guarding, rebound, rigid Extremities exam: Present: normal inspection, full ROM, normal capillary refill. Absent: tenderness, pedal edema, joint swelling, calf tenderness Back exam: Present: normal inspection Neurological exam: Present: alert, oriented X3, CN II-XII intact Psychiatric exam: Present: normal affect, normal mood Skin exam: Present: warm, dry, intact, normal color. Absent: rash <Jose Garcia - Last Filed: 03/05/23 21:10> Course <Jose Garcia - Last Filed: 03/05/23 21:10> Vital Signs 03/05/23 03/05/23 17:00 21:51 Temperature 98.6 F 97.6 F Pulse Rate 70 61 Respiratory 18 18 Rate Blood Pressure 179/99 186/86 O2 Sat by Pulse 94 L 95 Oximetry - Reevaluation(s) Reevaluation #1: 03/05/23 21:10 Records reviewed (Jose Garcia) Reevaluation #4: 03/05/23 21:10 Was pt. sent in by a medical professional or institution ([facility] Jansen, [facility], urgent care, hospital, or fpc...) When possible be specific @ -no Did you speak to anyone other than the patient for history (EMS, parent, family, police, friend...)? What history was obtained from this source @ -no Did you review nursing and triage notes (agree or disagree)? Why? @ -agree Are old charts reviewed (outside hosp., previous admission, EMS record, old EKG, old radiological studies, urgent care reports/EKG's, fpc records)? Report findings @ -yes Differential Diagnosis (chest pain, altered mental status, abdominal pain women, abdominal pain men, vaginal bleeding, weakness, fever, dyspnea, syncope, headache, dizziness, GI bleed, back pain, seizure, CVA, palpatations, mental health, musculoskeletal)? @ -prior EKG interpreted by me (3pts min.). @ -yes X-rays interpreted by me (1pt min.). @ -yes CT interpreted by me (1pt min.). @ -no U/S interpreted by me (1pt. min.). @ -no What testing was considered but not performed or refused? (CT, X-rays, U/S, labs)? Why? @ -none What meds were considered but not given or refused? Why? @ -none Did you discuss the management of the patient with other professionals (professionals i.e. NADINE Jansen, [employer], lab, RT, psych nurse, manager social work, motor and generator assembler, teacher, life science technical officer, showcase trimmer)? Give summary @ -no Was smoking cessation discussed for >3mins.? @ -no Was critical care preformed (if so, how long)? @ -no Were there social determinants of health that impacted care today? How? (Homelessness, low income, unemployed, alcoholism, drug addiction, transportation, low edu. Level, literacy, decrease access to med. care, [facility], rehab)? @ -none Was there de-escalation of care discussed even if they declined (Discuss DNR or withdrawal of care, Hospice)? DNR status @ -no What co-morbidities impacted this encounter? (DM, HTN, Smoking, COPD, CAD, Cancer, CVA, ARF, Chemo, Hep., AIDS, mental health diagnosis, sleep apnea, morbid obesity)? @ -none Was patient admitted / discharged? Hospital course, mention meds given and route, prescriptions, significant lab abnormalities, going to OR and other pertinent info. @ - Undiagnosed new problem with uncertain prognosis? @ -no Drug Therapy requiring intensive monitoring for toxicity (Heparin, Nitro, Insulin, Cardizem)? @ -no Were any procedures done? @ -no Diagnosis/symptom? @ - Acute, or Chronic, or Acute on Chronic? @ -Acute Uncomplicated (without systemic symptoms) or Complicated (systemic symptoms)? @ -Complicated Side effects of treatment? @ -no Exacerbation, Progression, or Severe Exacerbation? @ -exacerbation Poses a threat to life or bodily function? How? (Chest pain, USA, OK, pneumonia, PE, COPD, DKA, ARF, appy, cholecystitis, CVA, Diverticulitis, Homicidal, Suicidal, threat to staff... and all critical care pts) @ -yes (Jose Garcia) Medical Decision Making - Lab Data Result diagrams: 03/05/23 18:59 03/05/23 18:59 - EKG Data -: EKG Interpreted by Me (EKG is sinus 69 WI 192 QRS 132 QTc 409) <Jose Garcia - Last Filed: 03/05/23 21:10> - Lab Data Result diagrams: 03/05/23 18:59 03/05/23 18:59 <Chance Hanson - Last Filed: 03/05/23 22:35> - Medical Decision Making Care continues to be by previous shift physician, Dr. Morocho,. Briefly patient is a in 87-year-old male lives at assisted living facility. He is here to be evaluated for altered mental status. History of present illness was discussed with legal guardian/daughter/granddaughter at the bedside. Patient is legally blind and hard of hearing. Usually she is able to get in touch with him over the phone. He seemed to be fine on the phone yesterday. This morning he was postictal to a service when they had difficulty reaching him. They went to go check on him and seemed to be incoherent. At the bedside patient is at baseline according to family member. Plan at [facility] to follow-up with pending urine studies and to determine final disposition. Labs and imaging these were reviewed. CBC, coag panel metabolic panel within acceptable limits. Mild hyponatremia 127. Urinalysis is negative for urinary tract infection. Imaging studies were reviewed. CT chest x-ray unremarkable. Patient observed in emergency department for over 5 hours. He is in stable medical condition. Disposition options were discussed with patient and family member at the bedside. Patient requesting to be discharge. It was explained to the patient and family member that there is a chance that patient may have suffered a mini stroke. It's hard to determine that clinically given that nobody is with the patient when his symptoms initially arise. He understands and still would like to be discharged to follow closely with his primary care doctor. (Chance Hanson) - Lab Data Lab Results 03/05/23 03/05/23 03/05/23 Range/Units 18:59 18:59 18:59 WBC 8.9 (3.8-10.6) k/uL RBC 4.77 (4.30-5.90) m/uL Hgb 16.2 (13.0-17.5) gm/dL Hct 48.6 (39.0-53.0) % MCV 101.8 H (80.0-100.0) fL MCH 34.0 (25.0-35.0) pg MCHC 33.4 (31.0-37.0) g/dL RDW 12.2 (11.5-15.5) % Plt Count 201 (150-450) k/uL MPV 7.8 Neutrophils % 75 % Lymphocytes % 16 % Monocytes % 5 % Eosinophils % 1 % Basophils % 1 % Neutrophils # 6.7 (1.3-7.7) k/uL Lymphocytes # 1.5 (1.0-4.8) k/uL Monocytes # 0.5 (0-1.0) k/uL Eosinophils # 0.1 (0-0.7) k/uL Basophils # 0.0 (0-0.2) k/uL PT 11.3 (10.0-12.5) sec INR 1.0 (<1.2) APTT 26.4 (22.0-30.0) sec Sodium (137-145) mmol/L Potassium (3.5-5.1) mmol/L Chloride (98-107) mmol/L Carbon Dioxide (22-30) mmol/L Anion Gap mmol/L BUN (9-20) mg/dL Creatinine (0.66-1.25) mg/dL Est GFR (CKD-EPI)AfAm (>60 ml/min/1.73 sqM) Est GFR (CKD-EPI)NonAf (>60 ml/min/1.73 sqM) Glucose (74-99) mg/dL Plasma Lactic Acid Izaiah (0.7-2.0) mmol/L Calcium (8.4-10.2) mg/dL Total Bilirubin (0.2-1.3) mg/dL AST (17-59) U/L ALT (4-49) U/L Alkaline Phosphatase (38-126) U/L Troponin I (0.000-0.034) ng/mL NT-Pro-B Natriuret Pep pg/mL Total Protein (6.3-8.2) g/dL Albumin (3.5-5.0) g/dL Urine Color Light Yellow Urine Appearance Clear (Clear) Urine pH 6.5 (5.0-8.0) Ur Specific Fulton 1.014 (1.001-1.035) Urine Protein 1+ H (Negative) Urine Glucose (UA) Negative (Negative) Urine Ketones 1+ H (Negative) Urine Blood Negative (Negative) Urine Nitrite Negative (Negative) Urine Bilirubin Negative (Negative) Urine Urobilinogen 2.0 (<2.0) mg/dL Ur Leukocyte Esterase Negative (Negative) Urine RBC 7 H (0-5) /hpf Urine WBC <1 (0-5) /hpf Hyaline Casts 1 (0-2) /lpf Urine Mucus Rare H (None) /hpf 03/05/23 03/05/23 03/05/23 Range/Units 18:59 18:59 18:59 WBC (3.8-10.6) k/uL RBC (4.30-5.90) m/uL Hgb (13.0-17.5) gm/dL Hct (39.0-53.0) % MCV (80.0-100.0) fL MCH (25.0-35.0) pg MCHC (31.0-37.0) g/dL RDW (11.5-15.5) % Plt Count (150-450) k/uL MPV Neutrophils % % Lymphocytes % % Monocytes % % Eosinophils % % Basophils % % Neutrophils # (1.3-7.7) k/uL Lymphocytes # (1.0-4.8) k/uL Monocytes # (0-1.0) k/uL Eosinophils # (0-0.7) k/uL Basophils # (0-0.2) k/uL PT (10.0-12.5) sec INR (<1.2) APTT (22.0-30.0) sec Sodium 127 L (137-145) mmol/L Potassium 4.5 (3.5-5.1) mmol/L Chloride 99 (98-107) mmol/L Carbon Dioxide 22 (22-30) mmol/L Anion Gap 6 mmol/L BUN 12 (9-20) mg/dL Creatinine 0.61 L (0.66-1.25) mg/dL Est GFR (CKD-EPI)AfAm >90 (>60 ml/min/1.73 sqM) Est GFR (CKD-EPI)NonAf 90 (>60 ml/min/1.73 sqM) Glucose 104 H (74-99) mg/dL Plasma Lactic Acid Izaiah 1.1 (0.7-2.0) mmol/L Calcium 9.3 (8.4-10.2) mg/dL Total Bilirubin 1.2 (0.2-1.3) mg/dL AST 27 (17-59) U/L ALT 19 (4-49) U/L Alkaline Phosphatase 105 (38-126) U/L Troponin I 0.018 (0.000-0.034) ng/mL NT-Pro-B Natriuret Pep 5510 pg/mL Total Protein 6.8 (6.3-8.2) g/dL Albumin 4.1 (3.5-5.0) g/dL Urine Color Urine Appearance (Clear) Urine pH (5.0-8.0) Ur Specific Fulton (1.001-1.035) Urine Protein (Negative) Urine Glucose (UA) (Negative) Urine Ketones (Negative) Urine Blood (Negative) Urine Nitrite (Negative) Urine Bilirubin (Negative) Urine Urobilinogen (<2.0) mg/dL Ur Leukocyte Esterase (Negative) Urine RBC (0-5) /hpf Urine WBC (0-5) /hpf Hyaline Casts (0-2) /lpf Urine Mucus (None) /hpf Disposition <Jose Garcia B - Last Filed: 03/05/23 21:10> Is patient prescribed a controlled substance at d/c from ED?: No Time of Disposition: 22:35 <Chance Hanson - Last Filed: 03/05/23 22:35> Clinical Impression: Altered mental status Disposition: HOME SELF-CARE Condition: Fair Instructions (If sedation given, give patient instructions): Altered Mental Sta tus (ED) Referrals: Oskar Rowland MD [Primary Care Provider] - 1-2 days
[2023-03-05 19:19] LABS: Basophils % (A) 1 %; Eosinophils # (A) 0.1 k/uL (0-0.7); Eosinophils % (A) 1 %; HCT 48.6 % (39.0-53.0); HGB 16.2 gm/dL (13.0-17.5); Lymphocytes # (A) 1.5 k/uL (1.0-4.8); Lymphocytes % (A) 16 %; MCHC 33.4 g/dL (31.0-37.0); MCV 101.8 fL (80.0-100.0); Mean Platelet Volume 7.8; Monocytes # (A) 0.5 k/uL (0-1.0); Monocytes % (A) 5 %; Neutrophils # (A) 6.7 k/uL (1.3-7.7); Neutrophils % (A) 75 %; Platelet Count 201 k/uL (150-450); RBC 4.77 m/uL (4.30-5.90); RDW 12.2 % (11.5-15.5); WBC 8.9 k/uL (3.8-10.6)
[2023-03-05 19:30] LABS: ALT 19 U/L (4-49); AST 27 U/L (17-59); African American GFR (CKD) >90 (>60 ml/min/1.73 sqM); Albumin 4.1 g/dL (3.5-5.0); Alkaline Phosphatase 105 U/L (38-126); Anion Gap 6 mmol/L; Blood Urea Nitrogen 12 mg/dL (9-20); Calcium 9.3 mg/dL (8.4-10.2); Carbon Dioxide 22 mmol/L (22-30); Chloride 99 mmol/L (98-107); Glucose 104 mg/dL (74-99); Non-African American GFR(CKD) 90 (>60 ml/min/1.73 sqM); Potassium 4.5 mmol/L (3.5-5.1); Sodium 127 mmol/L (137-145); Total Bilirubin 1.2 mg/dL (0.2-1.3); Total Protein 6.8 g/dL (6.3-8.2)
--- NOTE | 2023-03-05 19:36 | XR ---
EXAMINATION TYPE: XR chest 2V DATE OF EXAM: 03/05/2023 COMPARISON: 01/01/2022 HISTORY: Shortness of breath TECHNIQUE: Frontal and lateral views of the chest are obtained. FINDINGS: Scattered senescent parenchymal changes noted. There is pulmonary venous congestion without overt rudy lure this time. No evidence for infiltrate. No evidence for atelectasis. Heart size is stable. Mediastinal structures are stable and grossly unremarkable. No evidence for hilar prominence. Degenerative changes dorsal spine. IMPRESSION: 1. There is pulmonary venous congestion without overt failure this time.
[2023-03-05 19:38] LABS: NT-Pro-B-Type Natriuretic Pept 5510 pg/mL
--- NOTE | 2023-03-05 19:56 | CT ---
EXAMINATION TYPE: CT brain wo con DATE OF EXAM: 03/05/2023 COMPARISON: None HISTORY: weakness CT DLP: 1253.[address] of the brain was performed. The ventricles, basal cisterns and sulci overlying the cerebral convexities demonstrate mild enlargem ent. There is no evidence for intracranial hemorrhage or sulcal effacement. There is decreased attenuation about the periventricular white matter and deep white matter of both c erebral hemispheres, compatible with chronic small vessel ischemia. Differential diagnosis does inclu de demyelination. No mass effects are seen.No midline shift. Osseous calvarium is intact. If symptoms persist consider MRI. IMPRESSION: 1. Age related atrophic and chronic small vessel ischemic change without acute intracranial process s een at this time.
[2023-03-05 21:04] LABS: Partial Thromboplastin Time 26.4 sec (22.0-30.0); Prothrombin Time 11.3 sec (10.0-12.5)
[2023-03-05] MEDS ORDERED: ACETAMINOPHEN TAB 500 MG TAB PO STA (21:10)
[2023-03-05 22:03] VITALS: TEMP 97.6
[2023-03-05 22:10] LABS: Appearance,Urine Clear (Clear); Bilirubin,Urine Negative (Negative); Blood,Urine Negative (Negative); Color,Urine Light Yellow; Glucose,Urine (UA) Negative (Negative); Hyaline Casts,Urine 1 /lpf (0-2); Ketones,Urine 1+ (Negative); Leukocyte Esterase,Urine Negative (Negative); Mucus,Urine Rare /hpf; Nitrite,Urine Negative (Negative); PH, Urine 6.5 (5.0-8.0); Protein,Urine 1+ (Negative); RBC,Urine 7 /hpf (0-5); Specific Gravity,Urine 1.014 (1.001-1.035); WBC,Urine <1 /hpf (0-5)
[2023-03-05] MEDS ORDERED: ASPIRIN 81 MG PO STA (22:34)
[2023-03-05 23:13] VITALS: BP 176/99; PULSE 71
== END 2023-03-05 23:50 | disposition home or self-care (01) ==
LOC: EC 16:53
DX: R41.82 Altered mental status, unspecified (principal); I25.10 Atherosclerotic heart disease of native coronary artery without angina pectoris; I11.0 Hypertensive heart disease with heart failure; I50.9 Heart failure, unspecified; I25.2 Old myocardial infarction; E78.5 Hyperlipidemia, unspecified; K21.9 Gastro-esophageal reflux disease without esophagitis; M19.90 Unspecified osteoarthritis, unspecified site; Z87.891 Personal history of nicotine dependence; Z79.1 Long term (current) use of non-steroidal anti-inflammatories (NSAID); Z91.040 Latex allergy status; Z88.8 Allergy status to other drugs, medicaments and biological substances; Z79.82 Long term (current) use of aspirin
CPT/HCPCS: 36415; 51798; 70450; 71046; 80053; 81001; 83605; 83880; 84484; 85025; 85610; 85730; 93005; 96360; 99285

== ENCOUNTER 2023-05-21 22:39 | Inpatient (IN) | payer MEDICARE ==
--- NOTE | 2023-05-21 23:01 | ED ---
Arrhythmia/Palpitations HPI - General Chief Complaint: Arrhythmia/Palpitations Stated Complaint: A-fib Time Seen by Provider: 05/21/23 22:53 Source: patient, EMS Mode of arrival: EMS Limitations: altered mental status - History of Present Illness Initial Comments: This patient is an 88-year-old man who arrives with feeling of irregular heartbeat and states that his pacer defibrillator had shocked him. Patient states he was attempting to walk through his home and then the next thing he knew he was on the floor. He does not believe he had any injury and going to the ground, but states that his chest was sore and it felt like previously when his defibrillator had shocked him. Patient subsequently noted irregular heartbeat. He is also feeling short of breath. MD Complaint: palpitations -: hour(s) Context: occurred during exertion (Walking across the house) Arrhythmia History: atrial fibrillation, pacemaker, AICD Associated Symptoms: chest pain - Related Data Home Medications Medication Instructions Recorded Confirmed Spironolactone [Aldactone] 12.5 mg PO DAILY 12/03/16 05/22/23 Aspirin [Adult Low Dose Aspirin EC] 81 mg PO DAILY 11/16/17 05/22/23 Atorvastatin [Lipitor] 80 mg PO HS 03/03/21 05/22/23 Nitroglycerin 0.4 mg SL Q5M PRN 09/28/22 05/22/23 Metoprolol Succinate (ER) [Toprol 75 mg PO HS 11/13/22 05/22/23 XL] Acetaminophen Tab [Tylenol] 650 mg PO Q6H PRN 05/22/23 05/22/23 Furosemide [Lasix] 40 mg PO DAILY 05/22/23 05/22/23 Pantoprazole [Protonix] 40 mg PO DAILY 05/22/23 05/22/23 Previous Rx's Medication Instructions Recorded Amiodarone [Cordarone] 400 mg PO BID #60 tablet 05/25/23 Apixaban [Eliquis] 5 mg PO BID tab 05/26/23 Baclofen [Lioresal] 5 mg PO DAILY PRN tab 05/26/23 Doxycycline Monohydrate 100 mg PO BID 3 Days #0 05/26/23 HYDROcodone/APAP 5-325MG [[place] 1 each PO Q6H PRN #12 tab 05/26/23 5-325] Lactulose [Cephulac] 20 gm PO TID PRN ml 05/26/23 Magnesium Hydroxide [Milk of 2,400 mg PO DAILY PRN ml 05/26/23 Magnesia] Sennosides [Senokot] 8.6 mg PO BID #0 05/26/23 lisinopriL [Zestril] 20 mg PO DAILY tab 05/26/23 polyethylene glycoL 3350 [Miralax] 17 gm PO DAILY packet 05/26/23 Allergies Allergy/AdvReac Type Severity Reaction Status Date / Time amlodipine besylate Allergy Rash/Hives Verified 05/22/23 11:09 [From Norvasc] isosorbide [From Imdur] Allergy Unknown Verified 05/22/23 11:09 Latex, Natural Rubber Allergy Rash/Hives Verified 05/22/23 11:09 Review of Systems ROS Statement: Those systems with pertinent positive or pertinent negative responses have been documented in the HPI. ROS Other: All systems not noted in ROS Statement are negative. Constitutional: Denies: fever, chills, weakness Eyes: Denies: vision change Respiratory: Denies: cough, dyspnea Cardiovascular: Reports: as per HPI, chest pain. Denies: palpitations, edema Gastrointestinal: Denies: abdominal pain, vomiting, diarrhea Genitourinary: Denies: dysuria, hematuria Musculoskeletal: Denies: back pain, arthralgia Skin: Denies: rash Neurological: Denies: headache, weakness Past Medical History Past Medical History: Coronary Artery Disease (CAD), Heart Failure, Eye Disorder, GERD/Reflux, GI Bleed, Hyperlipidemia, Hypertension, Myocardial Infarction (DE), Osteoarthritis (OA), Prostate Disorder, Thyroid Disorder Additional Past Medical History / Comment(s): cardiomyopathy, DENGENERATIVE ARTHRITIS, MACULAR DEGENERATION AND CATARACTS,GI BLEED 2011, fall11-24-16/facial inj/bruing/broken front teeth,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 , LEGALLY BLIND, FELL AND CUT HIS LT ARM-NO STITCHES NEEDED BUT PUT ON ANTIBIOTICS PREVENTATIVE-STILL HAS BRUISING.-NOTIFIED [place] IN PAIN CLINIC-SEE NN PLEASE Last Myocardial Infarction Date:: History of Any Multi-Drug Resistant Organisms: None Reported Past Surgical History: Adenoidectomy, AICD, Appendectomy, Cholecystectomy, Heart Catheterization, Heart Catheterization With Stent, Joint Replacement, Orthopedic Surgery, Pacemaker, Tonsillectomy Additional Past Surgical History / Comment(s): AICD, Defrillation Testing 04/02/14, TOTAL LT/RT KNEE ARTHROPLASTY, bilateral CATARACTS, bilateral carpal tunnel releases, PARTIAL THYROIDECTOMY due to nodules, trigger fingers,heart stents x3, PAIN CLINIC PROCEDURES Past Anesthesia/Blood Transfusion Reactions: No Reported Reaction Additional Past Anesthesia/Blood Transfusion Reaction / Comment(s): wakes up during surgery,no hx blood transfusion Date of Last Stent Placement:: Type of Cardiac Device: Biventricular Pacemaker, AICD Device Placement Date:: 12-04-13 [employer] Past Psychological History: No Psychological Hx Reported Smoking Status: Former smoker Past Alcohol Use History: None Reported Past Drug Use History: None Reported - Past Family History Son(s) Family Medical History: No Reported History Father Family Medical History: Cancer, Coronary Artery Disease (CAD), CVA/TIA, Diabetes Mellitus Additional Family Medical History / Comment(s): CAROTID ARTERY BLOCKAGE.SX IN 1988 Mother Family Medical History: Unable to Obtain Additional Family Medical History / Comment(s): AT AGE 89- UNK HX Daughter(s) Family Medical History: Cancer (Patient has 2 adopted daughters and he has been under a lot of stress with his adopted daughter whom her left taking her cars with him.) BROTHER Family Medical History: Cancer Additional Family Medical History / Comment(s): BONE, PANCREATIC General Exam Limitations: no limitations General appearance: alert, in no apparent distress Head exam: Present: atraumatic, normocephalic Eye exam: Present: normal appearance. Absent: scleral icterus, conjunctival injection Neck exam: Present: normal inspection, full ROM. Absent: tenderness Respiratory exam: Present: normal lung sounds bilaterally. Absent: respiratory distress, wheezes, rales, rhonchi, stridor, chest wall tenderness, accessory muscle use Cardiovascular Exam: Present: tachycardia, irregular rhythm. Absent: systolic murmur, diastolic murmur, rubs, gallop GI/Abdominal exam: Present: soft. Absent: distended, tenderness, guarding, rebound, rigid, mass Extremities exam: Present: normal inspection, normal capillary refill. Absent: pedal edema, calf tenderness Back exam: Present: normal inspection. Absent: CVA tenderness (R), CVA tenderness (L) Neurological exam: Present: alert Skin exam: Present: warm, dry, intact, normal color. Absent: rash Course Vital Signs 05/21/23 05/21/23 05/22/23 22:47 23:21 00:08 Temperature 98.7 F Pulse Rate 159 H 140 H 128 H Respiratory 18 16 18 Rate Blood Pressure 137/104 96/78 105/78 O2 Sat by Pulse 95 97 98 Oximetry 05/22/23 05/22/23 05/22/23 01:01 01:41 01:44 Temperature 97.7 F 98.5 F Pulse Rate 118 H 126 H Respiratory 18 20 18 Rate Blood Pressure 114/73 123/82 O2 Sat by Pulse 98 96 95 Oximetry 05/22/23 05/22/23 02:00 03:15 Temperature Pulse Rate 124 H Respiratory 20 18 Rate Blood Pressure 124/78 O2 Sat by Pulse 97 Oximetry EKG Findings - EKG Results: EKG: interpreted by ERMD EKG shows: atrial fibrillation (Rate 157 BPM) - Blocks, [place], Hypertrophy, ST Abn: QRS axis and voltage: left axis deviation (-30 to -90) Medical Decision Making - Medical Decision Making The patient had chest x-ray that I interpreted as negative for acute infiltrate, pneumothorax, congestive heart failure Was pt. sent in by a medical professional or institution (, PA, PARTS DELIVERY DRIVER, urgent care, hospital, or [facility]...) When possible be specific @ -[No] Did you speak to anyone other than the patient for history (EMS, parent, family, police, friend...)? What history was obtained from this source @ -[No] Did you review nursing and triage notes (agree or disagree)? Why? @ -[I reviewed and agree with nursing and triage notes] Were old charts reviewed (outside hosp., previous admission, EMS record, old EKG, old radiological studies, urgent care reports/EKG's, [facility] records)? Report findings @ -[No old charts were reviewed] Differential Diagnosis (chest pain, altered mental status, abdominal pain women, abdominal pain men, vaginal bleeding, weakness, fever, dyspnea, syncope, headache, dizziness, GI bleed, back pain, seizure, CVA, palpatations, mental health, musculoskeletal)? @ -[Differential Chest Pain: Stable Angina, Unstable Angina, STEMI, NSTEMI Aortic Dissection, Pneumothorax, Musculoskeletal, Esophageal Spasm GERD, Cholecystitis, Pancreatitis, Zoster, this is not meant to be an all-inclusive list. EKG interpreted by me (3pts min.). @ -[I interpreted as above] X-rays interpreted by me (1pt min.). @ -[I interpreted as above CT interpreted by me (1pt min.). @ -[None done] U/S interpreted by me (1pt. min.). @ -[None done] What testing was considered but not performed or refused? (CT, X-rays, U/S, labs)? Why? @ -[None] What meds were considered but not given or refused? Why? @ -[None] Did you discuss the management of the patient with other professionals (professionals i.e. , PA, PARTS DELIVERY DRIVER, lab, RT, psych nurse, social worker school, oil refiner, teacher, customs officer, showcase trimmer)? Give summary @ -[Case discussed with admitting physician and with cardiology and their treatment recommendations are incorporated Was smoking cessation discussed for >3mins.? @ -[No] Was critical care preformed (if so, how long)? @ -[No] Were there social determinants of health that impacted care today? How? (Homelessness, low income, unemployed, alcoholism, drug addiction, transportation, low edu. Level, literacy, decrease access to med. care, senior living, rehab)? @ -[No] Was there de-escalation of care discussed even if they declined (Discuss DNR or withdrawal of care, Hospice)? DNR status @ -[No] What co-morbidities impacted this encounter? (DM, HTN, Smoking, COPD, CAD, Cancer, CVA, ARF, Chemo, Hep., AIDS, mental health diagnosis, sleep apnea, morbid obesity)? @ -[None] Was patient admitted / discharged? Hospital course, mention meds given and route, prescriptions, significant lab abnormalities, going to OR and other pertinent info. @ -[Patient is an 88-year-old man here with fall and with AICD discharge. Patient will be admitted for serial cardiac enzymes, telemetry monitoring, cardiology evaluation. Undiagnosed new problem with uncertain prognosis? @ -[No] Drug Therapy requiring intensive monitoring for toxicity (Heparin, Nitro, Insulin, Cardizem)? @ -[No] Were any procedures done? @ -[No] Diagnosis/symptom? @ -[Acute fall Acute minor head trauma Defibrillator discharge Hypomagnesemia Elevated troponin Acute, or Chronic, or Acute on Chronic? @ -[Acute Uncomplicated (without systemic symptoms) or Complicated (systemic symptoms)? @ -[Uncomplicated Side effects of treatment? @ -[No] Exacerbation, Progression, or Severe Exacerbation? @ -[No] Poses a threat to life or bodily function? How? (Chest pain, [place], [place], pneumonia, PE, COPD, DKA, ARF, appy, cholecystitis, CVA, Diverticulitis, Homicidal, Suicidal, threat to staff... and all critical care pts) @ -[Yes, requires further cardiology evaluation - Lab Data Result diagrams: 05/25/23 09:23 05/25/23 09:23 Lab Results 05/21/23 05/21/23 05/21/23 Range/Units 22:42 22:42 22:42 WBC 8.2 (3.8-10.6) k/uL RBC 4.69 (4.30-5.90) m/uL Hgb 15.4 (13.0-17.5) gm/dL Hct 46.4 (39.0-53.0) % MCV 98.8 (80.0-100.0) fL MCH 32.8 (25.0-35.0) pg MCHC 33.2 (31.0-37.0) g/dL RDW 12.2 (11.5-15.5) % Plt Count 139 L (150-450) k/uL MPV 9.0 Neutrophils % 58 % Lymphocytes % 27 % Monocytes % 8 % Eosinophils % 3 % Basophils % 1 % Neutrophils # 4.8 (1.3-7.7) k/uL Lymphocytes # 2.2 (1.0-4.8) k/uL Monocytes # 0.7 (0-1.0) k/uL Eosinophils # 0.3 (0-0.7) k/uL Basophils # 0.1 (0-0.2) k/uL PT 11.3 (10.0-12.5) sec INR 1.0 (<1.2) APTT 23.8 (22.0-30.0) sec Sodium 131 L (137-145) mmol/L Potassium 3.5 (3.5-5.1) mmol/L Chloride 103 (98-107) mmol/L Carbon Dioxide 22 (22-30) mmol/L Anion Gap 6 mmol/L BUN 13 (9-20) mg/dL Creatinine 0.66 (0.66-1.25) mg/dL Est GFR (CKD-EPI)AfAm >90 (>60 ml/min/1.73 sqM) Est GFR (CKD-EPI)NonAf 86 (>60 ml/min/1.73 sqM) Glucose 125 H (74-99) mg/dL Calcium 7.8 L (8.4-10.2) mg/dL Magnesium 1.4 L (1.6-2.3) mg/dL Total Bilirubin 1.1 (0.2-1.3) mg/dL AST 31 (17-59) U/L ALT 19 (4-49) U/L Alkaline Phosphatase 68 (38-126) U/L Troponin I (0.000-0.034) ng/mL Total Protein 5.4 L (6.3-8.2) g/dL Albumin 2.9 L (3.5-5.0) g/dL 05/21/23 Range/Units 22:42 WBC (3.8-10.6) k/uL RBC (4.30-5.90) m/uL Hgb (13.0-17.5) gm/dL Hct (39.0-53.0) % MCV (80.0-100.0) fL MCH (25.0-35.0) pg MCHC (31.0-37.0) g/dL RDW (11.5-15.5) % Plt Count (150-450) k/uL MPV Neutrophils % % Lymphocytes % % Monocytes % % Eosinophils % % Basophils % % Neutrophils # (1.3-7.7) k/uL Lymphocytes # (1.0-4.8) k/uL Monocytes # (0-1.0) k/uL Eosinophils # (0-0.7) k/uL Basophils # (0-0.2) k/uL PT (10.0-12.5) sec INR (<1.2) APTT (22.0-30.0) sec Sodium (137-145) mmol/L Potassium (3.5-5.1) mmol/L Chloride (98-107) mmol/L Carbon Dioxide (22-30) mmol/L Anion Gap mmol/L BUN (9-20) mg/dL Creatinine (0.66-1.25) mg/dL Est GFR (CKD-EPI)AfAm (>60 ml/min/1.73 sqM) Est GFR (CKD-EPI)NonAf (>60 ml/min/1.73 sqM) Glucose (74-99) mg/dL Calcium (8.4-10.2) mg/dL Magnesium (1.6-2.3) mg/dL Total Bilirubin (0.2-1.3) mg/dL AST (17-59) U/L ALT (4-49) U/L Alkaline Phosphatase (38-126) U/L Troponin I 0.065 H* (0.000-0.034) ng/mL Total Protein (6.3-8.2) g/dL Albumin (3.5-5.0) g/dL Disposition Clinical Impression: Fall, Defibrillator discharge, Hypomagnesemia Disposition: ADMITTED IP TO THIS HOSP Condition: Fair
[2023-05-21] MEDS: DILTIAZEM 125 MG in SODIUM CHLORIDE 0.9% 100 ML IV SCH (23:16)
[2023-05-21] MEDS: DILTIAZEM DRIP BOLUS FROM BAG 1 MG SOLN IV ONE (23:17)
[2023-05-21] MEDS: ENOXAPARIN 100 MG/ML SYRINGE SQ STA (23:17)
--- NOTE | 2023-05-21 23:21 | XR ---
EXAMINATION TYPE: XR chest 1V portable DATE OF EXAM: 05/21/2023 COMPARISON: Chest x-ray March 05, 2023 HISTORY: Dysrhythmia. TECHNIQUE: Single frontal view of the chest is obtained. FINDINGS: There is some chronic parenchymal changes bilaterally without suspicious focal air space opacity, pleural effusion, or pneumothorax seen. Persistent cardiomegaly with atheros clerotic thoracic aorta and single lead pacemaker/defibrillator. Osseous structures are demineralized with degenerative change bilateral glenohumeral joints seen. IMPRESSION: Chronic changes and cardiomegaly without acute pulmonary process.
[2023-05-21 23:30] LABS: ALT 19 U/L (4-49); AST 31 U/L (17-59); African American GFR (CKD) >90 (>60 ml/min/1.73 sqM); Albumin 2.9 g/dL (3.5-5.0); Alkaline Phosphatase 68 U/L (38-126); Anion Gap 6 mmol/L; Blood Urea Nitrogen 13 mg/dL (9-20); Calcium 7.8 mg/dL (8.4-10.2); Carbon Dioxide 22 mmol/L (22-30); Chloride 103 mmol/L (98-107); Glucose 125 mg/dL (74-99); Magnesium 1.4 mg/dL (1.6-2.3); Non-African American GFR(CKD) 86 (>60 ml/min/1.73 sqM); Potassium 3.5 mmol/L (3.5-5.1); Sodium 131 mmol/L (137-145); Total Bilirubin 1.1 mg/dL (0.2-1.3); Total Protein 5.4 g/dL (6.3-8.2)
[2023-05-21 23:41] LABS: Partial Thromboplastin Time 23.8 sec (22.0-30.0); Prothrombin Time 11.3 sec (10.0-12.5)
[2023-05-22] LABS: Basophils # (A) 0.1 k/uL (0-0.2); Basophils % (A) 1 %; Eosinophils # (A) 0.3 k/uL (0-0.7); Eosinophils % (A) 3 %; HCT 46.4 % (39.0-53.0); HGB 15.4 gm/dL (13.0-17.5); Lymphocytes # (A) 2.2 k/uL (1.0-4.8); Lymphocytes % (A) 27 %; MCH 32.8 pg (25.0-35.0); MCHC 33.2 g/dL (31.0-37.0); MCV 98.8 fL (80.0-100.0); Monocytes # (A) 0.7 k/uL (0-1.0); Monocytes % (A) 8 %; Neutrophils # (A) 4.8 k/uL (1.3-7.7); Neutrophils % (A) 58 %; Platelet Count 139 k/uL (150-450); RBC 4.69 m/uL (4.30-5.90); RDW 12.2 % (11.5-15.5); WBC 8.2 k/uL (3.8-10.6)
[2023-05-22] MEDS ORDERED: NITROGLYCERIN SL TABS 0.4 MG TAB SUBLINGUAL PRN ×2 (01:34→12:08)
[2023-05-22] MEDS: ENOXAPARIN 100 MG/ML SYRINGE SQ SCH (01:43)
[2023-05-22] MEDS: ACETAMINOPHEN TAB 325 MG TAB PO STA (03:14)
[2023-05-22] MEDS: HYDROcodone/APAP 5-325MG 1 EACH TAB PO PRN (06:37)
[2023-05-22] MEDS: PANTOPRAZOLE 40 MG TABLET PO SCH (06:38)
[2023-05-22] MEDS: ATORVASTATIN 80 MG TAB PO SCH (08:30)
[2023-05-22] MEDS: FUROSEMIDE 20 MG TAB PO SCH (08:30)
[2023-05-22] MEDS: METOPROLOL SUCCINATE (ER) 25 MG TAB.ER.24H PO SCH (08:30)
[2023-05-22] MEDS: SPIRONOLACTONE 25 MG TAB PO SCH (08:31)
[2023-05-22] MEDS: BACLOFEN 10 MG TAB PO SCH (08:31)
[2023-05-22] MEDS: ASPIRIN 81 MG PO SCH (08:33)
[2023-05-22] MEDS ORDERED: HEPARIN SODIUM 1,000 UN/ML (10ML VL) IV PRN (08:37)
[2023-05-22] MEDS ORDERED: HEPARIN SOD,PORK IN 0.45% NACL 25,000 UNIT in 0.45% NACL 1 250ML.BAG IV SCH (08:45)
[2023-05-22] MEDS ORDERED: LOSARTAN 50 MG TAB PO SCH (09:00)
[2023-05-22] MEDS ORDERED: lisinopriL 20 MG TAB PO SCH (09:00)
[2023-05-22] MEDS: HEPARIN SODIUM 1,000 UN/ML (10ML VL) IV ONE (09:30)
[2023-05-22] MEDS: DEXTROSE 5% IN WATER 100 ML with AMIODARONE 150 MG IV ONE (09:39)
[2023-05-22] MEDS: AMIODARONE 360 MG in DEXTROSE 5% IN WATER 200 ML IV ONE (09:57)
--- NOTE | 2023-05-22 10:08 | P.CRDCN ---
History of Present Illness History of present illness: HISTORY OF PRESENT ILLNESS: This is a 88-year-old male with a past medical history significant for coronary artery disease with previous stenting, ischemic cardiomyopathy, AICD implantati on, hypertension, hyperlipidemia, and congestive heart failure. Patient follows in the office with Dr. Kearns. We have been asked to see the patient in consultation for A-fib with RVR and defibrillator discharge. Patient examined at the bedside. Patient states he has been hospitalized [facility] for the past week secondary to UTI and gastroenteritis. He states he was discharged home and was home for approximately 1 hour. He states that he was trying to get out of his chair to go to the bathroom when he fell. He states that he remembers falling and did not lose consciousness. He denied having any chest pain or pressure or shortness of breath prior to this. He denied having any d izziness or lightheadedness. Patient then states that he felt his defibrillator discharge 5 times. Patient states his defibrillator has only went off 1 other time to his knowledge and it was many years ago. Interrogation of patient's device does reveal episodes of ventricular tachycardia with AICD discharge. The patient was also found to be in atrial fibrillation with RVR. The patient denies a previous history of atrial fibrillation. He was started on IV Cardizem. He remains in atrial fibrillation this morning with a heart rate in the 90s. DIAGNOSTICS: - EKG reveals atrial fibrillation with RVR. - Chest xray chronic changes and cardiomegaly without acute pulmonary process. - Laboratory data: WBC 8.2. Hemoglobin 15.4. Platelet count 139. Sodium 131. Potassium 3.5. BUN 13. Creatinine 0.66. Magnesium 1.4. Troponin 0.065. 1.510. - Current home cardiac medications include: Medication list not updated at the time of dictation. - Most recent echocardiogram obtained in December 2021 reveals ejection fraction 25%, mild TR, mild AR. - Cardiac catheterization history: 2013 with stenting to the mid RCA and proximal RCA. REVIEW OF SYSTEMS: At the time of my exam: CONSTITUTIONAL: Denies fever or chills. HEENT: Denies blurred vision, vision changes, or eye pain. Denies hemoptysis CARDIOVASCULAR: Denies chest pain. Denies orthopnea. Denies PND. Denies palpitations RESPIRATORY: Denies shortness of breath. GASTROINTESTINAL: Denies abdominal pain. Denies nausea or vomiting. HEMATOLOGIC: Denies bleeding disorders. GENITOURINARY: Denies any blood in urine. SKIN: Denies pruitis. Denies rash. PHYSICAL EXAM: VITAL SIGNS: Reviewed. GENERAL: Well-developed in no acute distress. HEENT: Head is normocephalic. Pupils are equal, round. Sclerae anicteric. Mucous membranes of the mouth are moist. Neck supple. No JVD or thyromegaly LUNGS: Respirations even and unlabored. Lungs essentially clear to auscultation bilaterally. HEART: Regular rate and rhythm. S1 and S2 heard. ABDOMEN: Soft. Nondistended. Nontender. EXTREMITIES: Normal range of motion. No clubbing or cyanosis. Peripheral pulses intact. No lower extremity edema NEUROLOGIC: Awake and alert. Oriented x 3. ASSESSMENT: New onset atrial fibrillation with RVR Ventricular tachycardia, status post AICD discharge discharge Elevated troponins, likely secondary to A-fib with RVR along with ventricular tachycardia and AICD discharge Coronary artery disease with previous stenting Ischemic cardiomyopathy, EF 25% History of ICD implantation Hypertension Hyperlipidemia Congestive heart failure with reduced EF, currently euvolemic Hypomagnesemia PLAN: Obtain 2D echo to assess cardiac structure and function Begin Eliquis 5 mg twice a day Continue metoprolol succinate 75 mg daily Begin IV amiodarone bolus and drip. Will begin oral amiodarone when infusion has finished 400 mg twice a day Decrease lisinopril to 10 mg daily Discontinue losartan Continue telemetry monitoring Replace magnesium Further recommendations pending patient course Nurse practitioner note has been reviewed by physician. Signing provider agrees with the documented findings, assessment, and plan of care documented by GRAIN LOADER as a scribe. Past Medical History Past Medical History: Coronary Artery Disease (CAD), Heart Failure, Eye Disorder, GERD/Reflux, GI Bleed, Hyperlipidemia, Hypertension, Myocardial Infarction (DC), Osteoarthritis (OA), Prostate Disorder, Thyroid Disorder Additional Past Medical History / Comment(s): cardiomyopathy, DENGENERATIVE ARTHRITIS, MACULAR DEGENERATION AND CATARACTS,GI BLEED 2011, fall 11-24-16/facial inj/bruing/broken front teeth,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 , LEGALLY BLIND, FELL AND CUT HIS LT ARM-NO STITCHES NEEDED BUT PUT ON ANTIBIOTICS PREVENTATIVE-STILL HAS BRUISING.-NOTIFIED [facility] IN PAIN CLINIC-SEE NN PLEASE Last Myocardial Infarction Date:: History of Any Multi-Drug Resistant Organisms: None Reported Past Surgical History: Adenoidectomy, AICD, Appendectomy, Cholecystectomy, Heart Catheterization, Heart Catheterization With Stent, Joint Replacement, Orthopedic Surgery, Pacemaker, Tonsillectomy Additional Past Surgical History / Comment(s): AICD, Defrillation Testing , TOTAL LT/RT KNEE ARTHROPLASTY, bilateral CATARACTS, bilateral carpal tunnel releases, PARTIAL THYROIDECTOMY due to nodules, trigger fingers,heart stents x3, PAIN CLINIC PROCEDURES Past Anesthesia/Blood Transfusion Reactions: No Reported Reaction Additional Past Anesthesia/Blood Transfusion Reaction / Comment(s): wakes up during surgery,no hx blood transfusion Date of Last Stent Placement:: Type of Cardiac Device: Biventricular Pacemaker, AICD Device Placement Date:: 12-04-13 [employer] Past Psychological History: No Psychological Hx Reported Additional Psychological History / Comment(s): He uses a walker at home. He no longer drives, Smoking Status: Former smoker Past Alcohol Use History: None Reported Additional Past Alcohol Use History / Comment(s): started smoking 1953, quit 1973 smoked 1 ppd. Past Drug Use History: None Reported - Past Family History Son(s) Family Medical History: No Reported History Father Family Medical History: Cancer, Coronary Artery Disease (CAD), CVA/TIA, Diabetes Mellitus Additional Family Medical History / Comment(s): CAROTID ARTERY BLOCKAGE.SX IN 1988 Mother Family Medical History: Unable to Obtain Additional Family Medical History / Comment(s): AT AGE 89- UNK HX Daughter(s) Family Medical History: Cancer (Patient has 2 adopted daughters and he has been under a lot of stress with his adopted daughter whom her left taking her cars with him.) BROTHER Family Medical History: Cancer Additional Family Medical History / Comment(s): BONE, PANCREATIC Medications and Allergies Home Medications Medication Instructions Recorded Confirmed Type Spironolactone [Aldactone] 12.5 mg PO DAILY 12/03/16 01/27/23 History Aspirin [Adult Low Dose Aspirin EC] 81 mg PO DAILY 11/16/17 01/27/23 History Atorvastatin [Lipitor] 80 mg PO DAILY 03/03/21 01/27/23 History Sennosides [Senokot] 17.2 mg PO HS PRN tab 01/06/22 01/27/23 Rx Baclofen 5 mg PO DAILY 09/28/22 01/27/23 History Nitroglycerin 0.4 mg SL DIRECTED PRN 09/28/22 01/27/23 History polyethylene glycoL 3350 [Miralax] 17 gm PO DAILY 09/28/22 01/27/23 History Furosemide [Lasix] 20 mg PO DAILY 10/06/22 01/27/23 History HYDROcodone/APAP 5-325MG [[place] 1 tab PO Q6H PRN 11/04/22 01/27/23 History 5-325] Omeprazole 40 mg PO DAILY 11/04/22 01/27/23 History Losartan [Cozaar] 50 mg PO DAILY 11/13/22 01/27/23 History Metoprolol Succinate (ER) [Toprol 75 mg PO DAILY 11/13/22 01/27/23 History XL] lisinopriL 40 mg PO DAILY 12/25/22 01/27/23 History Diclofenac Sodium Gel [Voltaren 1% 4 gm TOPICAL QID 30 Days #100 gm 01/27/23 Rx Gel] Allergies Allergy/AdvReac Type Severity Reaction Status Date / Time amlodipine besylate Allergy Rash/Hives Verified 01/27/23 10:29 [From Norvasc] isosorbide [From Imdur] Allergy Unknown Verified 01/27/23 10:29 Latex, Natural Rubber Allergy Rash/Hives Verified 01/27/23 10:29 Physical Exam Vitals: Vital Signs Temp Pulse Pulse Resp BP BP Pulse Ox 05/22/23 09:39 119/82 05/22/23 08:16 97.7 F 99 20 116/67 05/22/23 03:57 97.7 F 107 H 20 114/70 96 05/22/23 03:15 124 H 18 124/78 97 05/22/23 02:00 20 05/22/23 01:44 98.5 F 126 H 18 123/82 95 05/22/23 01:41 97.7 F 20 96 05/22/23 01:01 118 H 18 114/73 98 05/22/23 00:08 128 H 18 105/78 98 05/21/23 23:21 140 H 16 96/78 97 05/21/23 22:47 98.7 F 159 H 18 137/104 95 Intake and Output 05/21/23 05/22/23 05/22/23 22:59 06:59 14:59 Intake Total 27 46.417 Balance 27 46.417 Intake: Intake, IV Titration 27 46.417 Amount Diltiazem 125 mg In 27 46.417 Sodium Chloride 0.9% 100 ml @ 5 MG/HR 5 mls/hr IV .Q24H [facility] Rx#:[id number] Other: Weight 92.986 kg 92.986 kg Results 05/21/23 22:42 05/21/23 22:42 Cardiac Enzymes 05/21/23 05/21/23 05/22/23 Range/Units 22:42 22:42 03:21 AST 31 (17-59) U/L Troponin I 0.065 H* 1.510 H* (0.000-0.034) ng/mL Coagulation 05/21/23 Range/Units 22:42 PT 11.3 (10.0-12.5) sec APTT 23.8 (22.0-30.0) sec CBC 05/21/23 Range/Units 22:42 WBC 8.2 (3.8-10.6) k/uL RBC 4.69 (4.30-5.90) m/uL Hgb 15.4 (13.0-17.5) gm/dL Hct 46.4 (39.0-53.0) % Plt Count 139 L (150-450) k/uL Comprehensive Metabolic Panel 05/21/23 Range/Units 22:42 Sodium 131 L (137-145) mmol/L Potassium 3.5 (3.5-5.1) mmol/L Chloride 103 (98-107) mmol/L Carbon Dioxide 22 (22-30) mmol/L BUN 13 (9-20) mg/dL Creatinine 0.66 (0.66-1.25) mg/dL Glucose 125 H (74-99) mg/dL Calcium 7.8 L (8.4-10.2) mg/dL AST 31 (17-59) U/L ALT 19 (4-49) U/L Alkaline Phosphatase 68 (38-126) U/L Total Protein 5.4 L (6.3-8.2) g/dL Albumin 2.9 L (3.5-5.0) g/dL Current Medications Generic Name Dose Route Start Last Admin Trade Name Freq PRN Reason Stop Dose Admin Hydrocodone Bitart/Acetaminophen 1 each 05/22/23 03:09 05/22/23 06:37 Hydrocodone/Apap 5-325mg 1 Each Tab PO 1 each Q6H PRN Administration Pain Apixaban 5 mg 05/22/23 21:00 Apixaban 5 Mg Tab PO BID JONO Protocol Aspirin 81 mg 05/22/23 09:00 05/22/23 08:33 Aspirin 81 Mg PO 81 mg DAILY JONO Administration Atorvastatin Calcium 80 mg 05/22/23 09:00 05/22/23 08:30 Atorvastatin 80 Mg Tab PO 80 mg DAILY JONO Administration Baclofen 5 mg 05/22/23 09:00 05/22/23 08:31 Baclofen 10 Mg Tab PO 5 mg DAILY JONO Administration Furosemide 20 mg 05/22/23 09:00 05/22/23 08:30 Furosemide 20 Mg Tab PO 20 mg DAILY JONO Administration Amiodarone HCl 450 mg/ 250 mls @ 16.667 mls/hr 05/22/23 15:00 Dextrose/Water IV 05/23/23 08:59 .Q15H JONO Protocol 0.5 MG/MIN Amiodarone HCl 360 mg/ 200 mls @ 33.333 mls/hr 05/22/23 09:00 Dextrose/Water IV 05/22/23 14:59 .Q6H ONE Protocol 1 MG/MIN Lisinopril 10 mg 05/22/23 09:00 Lisinopril 10 Mg Tab PO DAILY [facility] Metoprolol Succinate 75 mg 05/22/23 09:00 05/22/23 08:30 Metoprolol Succinate (Er) 25 Mg Tab.Er.24h PO 75 mg DAILY JONO Administration Nitroglycerin 0.4 mg 05/22/23 01:34 Nitroglycerin Sl Tabs 0.4 Mg Tab SUBLINGUAL Q5M PRN Chest Pain Pantoprazole Sodium 40 mg 05/22/23 07:30 05/22/23 06:38 Pantoprazole 40 Mg Tablet PO 40 mg [id number] JONO Administration Spironolactone 12.5 mg 05/22/23 09:00 05/22/23 08:31 Spironolactone 25 Mg Tab PO 12.5 mg DAILY JONO Administration Intake and Output 05/21/23 05/22/23 05/22/23 22:59 06:59 14:59 Intake Total 27 46.417 Balance 27 46.417 Intake: Intake, IV Titration 27 46.417 Amount Diltiazem 125 mg In 27 46.417 Sodium Chloride 0.9% 100 ml @ 5 MG/HR 5 mls/hr IV .Q24H [facility] Rx#:[id number] Other: Weight 92.986 kg 92.986 kg 05/21/23 22:42 05/21/23 22:42
--- NOTE | 2023-05-22 10:37 | P.HPIM ---
History of Present Illness 88-year-old male with history of coronary disease ischemic cardiomyopathy EF of around 20% admitted for atrial fibrillation came in after his AICD fired. Patient was discharged yesterday from [facility] after he was treated for urinary tract infection patient is still complaining of some burning sensation. Patient was in atrial fibrillation with rapid ventricular rate presently rate controlled was on Cardizem which was subsequently switched to metoprolol and amiodarone by cardiology. Patient is presently on Eliquis received Lovenox in ER. Patient is otherwise clinically doing well is on 2 L of oxygen but saturating well on 2 L probably oxygen can be discontinued. I do not have any BNP available chest x-ray did not show any pulmonary edema patient does not have any significant JVD uses 20 mg of Lasix at home. Patient felt his AICD discharge 5 times. Patient lives alone in an assisted living facility. Unable to take care of himself lately. He denies any dizziness or palpitations at this time denies any chest pain patient has a troponin elevation up to 1.5. REVIEW OF SYSTEMS: CONSTITUTIONAL: No fever, no malaise, no fatigue. HEENT: No recent visual problems or hearing problems. Denied any sore throat. CARDIOVASCULAR: No chest pain, orthopnea, PND, no palpitations, no syncope. PULMONARY: No shortness of breath, no cough, no hemoptysis. GASTROINTESTINAL: No diarrhea, no nausea, no vomiting, no abdominal pain. NEUROLOGICAL: No headaches, no weakness, no numbness. HEMATOLOGICAL: Denies any bleeding or petechiae. GENITOURINARY: As mentioned in HPI MUSCULOSKELETAL/RHEUMATOLOGICAL: Denies any joint pain, swelling, or any muscle pain. ENDOCRINE: Denies any polyuria or polydipsia. The rest of the 14-point review of systems is negative. PHYSICAL EXAMINATION: GENERAL: The patient is alert and oriented x3, not in any acute distress. Well developed, well nourished. HEENT: Pupils are round and equally reacting to light. EOMI. No scleral icterus. No conjunctival pallor. Normocephalic, atraumatic. No pharyngeal erythema. No thyromegaly. CARDIOVASCULAR: S1 and S2 present. No murmurs, rubs, or gallops. PULMONARY: Chest is clear to auscultation, no wheezing or crackles. ABDOMEN: Soft, nontender, nondistended, normoactive bowel sounds. No palpable organomegaly. MUSCULOSKELETAL: No joint swelling or deformity. EXTREMITIES: No cyanosis, clubbing, or pedal edema. NEUROLOGICAL: Gross neurological examination did not reveal any focal deficits. Does have significant generalized weakness elderly frail male SKIN: No rashes. Assessment and plan -New onset atrial fibrillation with rapid ventricular rate presently is presently rate controlled on amiodarone and metoprolol patient was started on Eliquis by cardiology. -Episodes of ventricular tachycardia patient had an AICD discharge patient is on amiodarone at this time as mentioned above -Coronary disease with previous stenting and patient has severe ischemic cardiomyopathy -Severe ischemic myopathy with EF of around 25% with an AICD, patient is presently not in acute exacerbation patient with his chronic systolic dysfu nction, patient will be continued on lisinopril and home dose of Lasix and will order BNP -Hypertension -Hyperlipidemia Hypomagnesemia magnesium will be replaced -Patient is being treated for urinary tract infection and patient is on doxycycline which will be resumed -Generalized deconditioning secondary to age-related muscle atrophy PT and OT evaluation probably will need placement upon discharge DVT prophylaxis: Patient is on Eliquis as mentioned above text Past Medical History Past Medical History: Coronary Artery Disease (CAD), Heart Failure, Eye Disorder, GERD/Reflux, GI Bleed, Hyperlipidemia, Hypertension, Myocardial Infarction (ME), Osteoarthritis (OA), Prostate Disorder, Thyroid Disorder Additional Past Medical History / Comment(s): cardiomyopathy, DENGENERATIVE ARTHRITIS, MACULAR DEGENERATION AND CATARACTS,GI BLEED 2011, fall 11-24-16/facial inj/bruing/broken front teeth,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 , LEGALLY BLIND, FELL AND CUT HIS LT ARM-NO STITCHES NEEDED BUT PUT ON ANTIBIOTICS PREVENTATIVE-STILL HAS BRUISING.-NOTIFIED [facility] IN PAIN CLINIC-SEE NN PLEASE Last Myocardial Infarction Date:: History of Any Multi-Drug Resistant Organisms: None Reported Past Surgical History: Adenoidectomy, AICD, Appendectomy, Cholecystectomy, Heart Catheterization, Heart Catheterization With Stent, Joint Replacement, Orthopedic Surgery, Pacemaker, Tonsillectomy Additional Past Surgical History / Comment(s): AICD, Defrillation Testing 04/02/14, TOTAL LT/RT KNEE ARTHROPLASTY, bilateral CATARACTS, bilateral carpal tunnel releases, PARTIAL THYROIDECTOMY due to nodules, trigger fingers,heart stents x3, PAIN CLINIC PROCEDURES Past Anesthesia/Blood Transfusion Reactions: No Reported Reaction Additional Past Anesthesia/Blood Transfusion Reaction / Comment(s): wakes up during surgery,no hx blood transfusion Date of Last Stent Placement:: Type of Cardiac Device: Biventricular Pacemaker, AICD Device Placement Date:: 12-04-13 [employer] Past Psychological History: No Psychological Hx Reported Additional Psychological History / Comment(s): He uses a walker at home. He no longer drives, Smoking Status: Former smoker Past Alcohol Use History: None Reported Additional Past Alcohol Use History / Comment(s): started smoking 1953, quit 1973 smoked 1 ppd. Past Drug Use History: None Reported - Past Family History Son(s) Family Medical History: No Reported History Father Family Medical History: Cancer, Coronary Artery Disease (CAD), CVA/TIA, Diabetes Mellitus Additional Family Medical History / Comment(s): CAROTID ARTERY BLOCKAGE.SX IN 1988 Mother Family Medical History: Unable to Obtain Additional Family Medical History / Comment(s): AT AGE 89- UNK HX Daughter(s) Family Medical History: Cancer (Patient has 2 adopted daughters and he has been under a lot of stress with his adopted daughter whom her left taking her cars with him.) BROTHER Family Medical History: Cancer Additional Family Medical History / Comment(s): BONE, PANCREATIC Medications and Allergies Home Medications Medication Instructions Recorded Confirmed Type Spironolactone [Aldactone] 12.5 mg PO DAILY 12/03/16 01/27/23 History Aspirin [Adult Low Dose Aspirin EC] 81 mg PO DAILY 11/16/17 01/27/23 History Atorvastatin [Lipitor] 80 mg PO DAILY 03/03/21 01/27/23 History Sennosides [Senokot] 17.2 mg PO HS PRN tab 01/06/22 01/27/23 Rx Baclofen 5 mg PO DAILY 09/28/22 01/27/23 History Nitroglycerin 0.4 mg SL DIRECTED PRN 09/28/22 01/27/23 History polyethylene glycoL 3350 [Miralax] 17 gm PO DAILY 09/28/22 01/27/23 History Furosemide [Lasix] 20 mg PO DAILY 10/06/22 01/27/23 History HYDROcodone/APAP 5-325MG [[place] 1 tab PO Q6H PRN 11/04/22 01/27/23 History 5-325] Omeprazole 40 mg PO DAILY 11/04/22 01/27/23 History Losartan [Cozaar] 50 mg PO DAILY 11/13/22 01/27/23 History Metoprolol Succinate (ER) [Toprol 75 mg PO DAILY 11/13/22 01/27/23 History XL] lisinopriL 40 mg PO DAILY 12/25/22 01/27/23 History Diclofenac Sodium Gel [Voltaren 1% 4 gm TOPICAL QID 30 Days #100 gm 01/27/23 Rx Gel] Allergies Allergy/AdvReac Type Severity Reaction Status Date / Time amlodipine besylate Allergy Rash/Hives Verified 01/27/23 10:29 [facility]] isosorbide [From Imdur] Allergy Unknown Verified 01/27/23 10:29 Latex, Natural Rubber Allergy Rash/Hives Verified 01/27/23 10:29 Physical Exam Vitals: Vital Signs Temp Pulse Pulse Resp BP BP Pulse Ox 05/22/23 09:50 116/80 05/22/23 09:35 119/82 05/22/23 08:16 97.7 F 99 20 116/67 05/22/23 03:57 97.7 F 107 H 20 114/70 96 05/22/23 03:15 124 H 18 124/78 97 05/22/23 02:00 20 05/22/23 01:44 98.5 F 126 H 18 123/82 95 05/22/23 01:41 97.7 F 20 96 05/22/23 01:01 118 H 18 114/73 98 05/22/23 00:08 128 H 18 105/78 98 05/21/23 23:21 140 H 16 96/78 97 05/21/23 22:47 98.7 F 159 H 18 137/104 95 Intake and Output 05/21/23 05/22/23 05/22/23 22:59 06:59 14:59 Intake Total 27 46.417 Balance 27 46.417 Intake: Intake, IV Titration 27 46.417 Amount Diltiazem 125 mg In 27 46.417 Sodium Chloride 0.9% 100 ml @ 5 MG/HR 5 mls/hr IV .Q24H [facility] Rx#:[id number] Other: Weight 92.986 kg 92.986 kg Results CBC & Chem 7: 05/21/23 22:42 05/21/23 22:42 Labs: Abnormal Lab Results - Last 24 Hours (Table) 05/21/23 05/21/23 05/21/23 Range/Units 22:42 22:42 22:42 Plt Count 139 L (150-450) k/uL Sodium 131 L (137-145) mmol/L Glucose 125 H (74-99) mg/dL Calcium 7.8 L (8.4-10.2) mg/dL Magnesium 1.4 L (1.6-2.3) mg/dL Troponin I 0.065 H* (0.000-0.034) ng/mL Total Protein 5.4 L (6.3-8.2) g/dL Albumin 2.9 L (3.5-5.0) g/dL 05/22/23 Range/Units 03:21 Plt Count (150-450) k/uL Sodium (137-145) mmol/L Glucose (74-99) mg/dL Calcium (8.4-10.2) mg/dL Magnesium (1.6-2.3) mg/dL Troponin I 1.510 H* (0.000-0.034) ng/mL Total Protein (6.3-8.2) g/dL Albumin (3.5-5.0) g/dL
[2023-05-22] MEDS: MAGNESIUM SULFATE-D5W PMX 1 GM in DEXTROSE/WATER 1 100ML.BAG IVPB SCH (10:43)
[2023-05-22] MEDS: lisinopriL 10 MG TAB PO SCH (12:42)
[2023-05-22] MEDS: AMIODARONE 450 MG in DEXTROSE 5% IN WATER 250 ML IV SCH (15:22)
[2023-05-22] MEDS: APIXABAN 5 MG TAB PO SCH (20:54)
[2023-05-22] MEDS: DOXYCYCLINE 100 MG CAP PO SCH (20:55)
[2023-05-23 06:51] LABS: African American GFR (CKD) >90 (>60 ml/min/1.73 sqM); Anion Gap 2 mmol/L; Blood Urea Nitrogen 13 mg/dL (9-20); Calcium 8.2 mg/dL (8.4-10.2); Carbon Dioxide 26 mmol/L (22-30); Chloride 100 mmol/L (98-107); Glucose 107 mg/dL (74-99); Magnesium 1.8 mg/dL (1.6-2.3); Non-African American GFR(CKD) 81 (>60 ml/min/1.73 sqM); Potassium 3.5 mmol/L (3.5-5.1); Sodium 128 mmol/L (137-145)
[2023-05-23] MEDS: AMIODARONE 200 MG TAB PO SCH (07:59)
[2023-05-23] MEDS: BACLOFEN 10 MG TAB PO PRN (08:13)
[2023-05-23] MEDS ORDERED: ASPIRIN 325 MG TAB PO SCH (09:00)
--- NOTE | 2023-05-23 09:15 | CA ---
Transthoracic Echo Report Name: Didier Carrillo Age: 88 Gender: M : 1935 Exam Date: 05/22/2023 11:23 Exam Location: [facility] Ht (in): 68 Wt (lb): 205 Ordering Physician: Samina Guerra Attending/Referring Phys: [id number], Charlie Jewel Hole Rough Opener Danika Silva, QUINN Procedure CPT: Indications: LV function, AF, VT, AICD discharge Cardiac Hx: AICD Technical Quality: Technically difficult study Contrast 1: Definity Total Dose (mL): 2 Contrast 2: Total Dose (mL): MEASUREMENTS (Male / Female) Normal Values 2D ECHO LV Diastolic Diameter PLAX 6.5 cm 4.2 - 5.9 / 3.9 - 5.3 cm LV Systolic Diameter PLAX 4.8 cm IVS Diastolic Thickness 1.1 cm 0.6 - 1.0 / 0.6 - 0.9 cm LVPW Diastolic Thickness 1.2 cm 0.6 - 1.0 / 0.6 - 0.9 cm LV Relative Wall Thickness 0.4 RV Internal Dim ED PLAX 4.1 cm LVOT Diameter 2.1 cm LA Systolic Diameter LX 5.1 cm 3.0 - 4.0 / 2.7 - 3.8 cm M-MODE Aortic Root Diameter MM 3.9 cm DOPPLER AV Peak Velocity 81.0 cm/s AV Peak Gradient 2.6 mmHg AI Peak Velocity 195.6 cm/s AI Peak Gradient 15.3 mmHg AI Pressure Half Time 848.4 ms MV Deceleration Time 182.5 ms TR Peak Velocity 199.2 cm/s TR Peak Gradient 15.9 mmHg Right Ventricular Systolic Press 20.3 mmHg FINDINGS Left Ventricle Left ventricular ejection fraction is estimated at 20-25 %. Mildly increased septal wall thickness. Moderately increased left ventricular diastolic diameter. Severely reduced global left ventricular systolic function. Apical septum akinesis. Mid to Apical anterior wall akinesis Right Ventricle Severe right ventricular dilatation. Right ventricular systolic pressure within normal limits. Right Atrium Right atrium not well visualized. Left Atrium Moderately increased left atrial diameter. Mildly increased left atrial area. Mitral Valve Mitral valve thickened. Mild mitral annular calcification. Trace mitral regurgitation. Aortic Valve Aortic valve sclerosis. Thickened aortic valve without stenosis. Mild aortic regurgitation. Tricuspid Valve Structurally normal tricuspid valve. Mild tricuspid regurgitation. Pulmonic Valve Pulmonic valve not well visualized. No pulmonic regurgitation. Pericardium No pericardial effusion. Aorta Mild aortic dilatation at the level of the sinuses of valsalva 39 mm CONCLUSIONS Severe LV systolic dysfunction with an ejection fraction of 25% Mild aortic regurgitation Mildly dilated aortic root Previewed by: Dr. Gianni Langston MD (Electronically Signed) Final Date: 23 May 2023 09:14
[2023-05-23] MEDS: DOCUSATE 100 MG CAP PO SCH (09:26)
[2023-05-23] MEDS: polyethylene glycoL 3350 17 GM POWD.PACK PO SCH (09:26)
--- NOTE | 2023-05-23 09:38 | P.PN ---
Subjective HISTORY OF PRESENT ILLNESS: This is a 88-year-old male with a past medical history significant for coronary artery disease with previous stenting, ischemic cardiomyopathy, AICD implantation, hypertension, hyperlipidemia, and congestive heart failure. Patient follows in the office with Dr. Kearns. We have been asked to see the patient in consultation for A-fib with RVR and defibrillator discharge. Patient examined at the bedside. Patient states he has been hospitalized [facility] for the past week secondary to UTI and gastroenteritis. He states he was discharged home and was home for approximately 1 hour. He states that he was trying to get out of his chair to go to the bathroom when he fell. He states that he remembers falling and did not lose consciousness. He denied having any chest pain or pressure or shortness of breath prior to this. He denied having any dizziness or lightheadedness. Patient then states that he felt his defibrillator discharge 5 times. Patient states his defibrillator has only went off 1 other time to his knowledge and it was many years ago. Interrogation of patient's device does reveal episodes of ventricular tachycardia with AICD discharge. The patient was also found to be in atrial f ibrillation with RVR. The patient denies a previous history of atrial fibrillation. He was started on IV Cardizem. He remains in atrial fibrillation this morning with a heart rate in the 90s. DIAGNOSTICS: - EKG reveals atrial fibrillation with RVR. - Chest xray chronic changes and cardiomegaly without acute pulmonary process. - Laboratory data: WBC 8.2. Hemoglobin 15.4. Platelet count 139. Sodium 131. Potassium 3.5. BUN 13. Creatinine 0.66. Magnesium 1.4. Troponin 0.065. 1.510. - Current home cardiac medications include: Medication list not updated at the time of dictation. - Most recent echocardiogram obtained in December 2021 reveals ejection fraction 25%, mild TR, mild AR. - Cardiac catheterization history: 2013 with stenting to the mid RCA and proximal RCA. 05/23/2023 Patient examined this morning the bedside. Patient denies chest pain or pressure. He denies shortness of breath. He remains on IV amiodarone. Vital signs are stable. Echocardiogram completed revealing ejection fraction 20 to 25%, apical septum akinesis, mid to apical anterior wall akinesis, trace MR, mild AR, mild TR. PHYSICAL EXAM: VITAL SIGNS: Reviewed. GENERAL: Well-developed in no acute distress. HEENT: Head is normocephalic. Pupils are equal, round. Sclerae anicteric. Mucous membranes of the mouth are moist. Neck supple. No JVD or thyromegaly LUNGS: Respirations even and unlabored. Lungs essentially clear to auscultation bilaterally. HEART: Regular rate and rhythm. S1 and S2 heard. ABDOMEN: Soft. Nondistended. Nontender. EXTREMITIES: Normal range of motion. No clubbing or cyanosis. Peripheral pulses intact. No lower extremity edema NEUROLOGIC: Awake and alert. Oriented x 3. ASSESSMENT: New onset atrial fibrillation with RVR Ventricular tachycardia, status post AICD discharge discharge Elevated troponins, likely secondary to A-fib with RVR along with ventricular tachycardia and AICD discharge Coronary artery disease with previous stenting Ischemic cardiomyopathy, EF 25% History of ICD implantation Hypertension Hyperlipidemia Congestive heart failure with reduced EF, currently euvolemic Hypomagnesemia PLAN: Continue current cardiac medications Begin oral amiodarone today after IV infusion is completed Continue additional cardiac medications Continue anticoagulation with Eliquis Will plan for cardiac catheterization on Wednesday. Patient's Eliquis will need to be held on Wednesday evening. Continue telemetry monitoring Further recommendations pending patient course Nurse practitioner note has been reviewed by physician. Signing provider agrees with the documented findings, assessment, and plan of care documented by HUMAN RESOURCES SUPERVISOR as a scribe. Objective - Vital Signs Vital signs: Vital Signs Temp 98 F 05/23/23 07:57 Pulse 60 05/23/23 07:57 Resp 16 05/23/23 07:57 BP 156/75 05/23/23 07:57 Pulse Ox 95 05/23/23 09:14 FiO2 Intake & Output 05/22/23 05/23/23 05/23/23 18:59 06:59 18:59 Intake Total 386.417 233.894 Output Total 850 350 Balance -463.583 -116.106 Weight 86.5 kg Intake: Intake, IV Titration 46.417 233.894 Amount Amiodarone 450 mg In 233.894 Dextrose 5% in Water 250 ml @ 0.5 MG/MIN 16.667 mls/hr IV .Q15H [facility] Rx#: [id number] Diltiazem 125 mg In 46.417 Sodium Chloride 0.9% 100 ml @ 5 MG/HR 5 mls/hr IV .Q24H [facility] Rx#:[id number] Oral 340 Output: Urine 850 350 Stool 0 - Labs CBC & Chem 7: 05/21/23 22:42 05/23/23 06:14 Labs: Abnormal Lab Results - Last 24 Hours (Table) 05/22/23 05/23/23 Range/Units 10:12 06:14 Sodium 128 L (137-145) mmol/L Glucose 107 H (74-99) mg/dL Calcium 8.2 L (8.4-10.2) mg/dL Troponin I 1.580 H* (0.000-0.034) ng/mL
[2023-05-23 09:59] LABS: Chol/HDL Ratio 2.72 Ratio; LDL Cholesterol,Calculated 36.6 mg/dL (0.0-131.0); VLDL Calculation 18.36 mg/dL (5.00-40.00)
[2023-05-23] MEDS: FUROSEMIDE 10 MG/ML 2 ML VIAL IV SCH (12:32)
[2023-05-23] MEDS: POTASSIUM CHLORIDE ER 20 MEQ TAB.ER PO STA (12:32)
--- NOTE | 2023-05-23 13:22 | P.PN ---
Subjective Progress Note Date: 05/23/23 88-year-old male with history of coronary disease ischemic cardiomyopathy EF of around 20% admitted for atrial fibrillation came in after his AICD fired. Patient was discharged yesterday from [facility] after he was treated for urinary tract infection patient is still complaining of some burning sensation. Patient was in atrial fibrillation with rapid ventricular rate presently rate controlled was on Cardizem which was subsequently switched to metoprolol and amiodarone by cardiology. Patient is presently on Eliquis received Lovenox in ER. Patient is otherwise clinically doing well is on 2 L of oxygen but saturating well on 2 L probably oxygen can be discontinued. I do not have any BNP available chest x-ray did not show any pulmonary edema patient does not have any significant JVD uses 20 mg of Lasix at home. Patient felt his AICD discharge 5 times. Patient lives alone in an assisted living facility. Unable to take care of himself lately. He denies any dizziness or palpitations at this time denies any chest pain patient has a troponin elevation up to 1.5. 05/23/2023 Patient is evaluated today on the medical floor. Patient remains in atrial fibrillation at this time with a controlled ventricular rate. He is continued on metoprolol and amiodarone. His heart rate is currently controlled. He remains on Eliquis. Patient did have an elevated proBNP of 6000 his sodium le afshan is at 128 we would recommend a dose of IV Lasix today and transition back to oral Lasix tomorrow. His echocardiogram did come back showing an EF of 20 to 25% with apical septum akinesis, to apical anterior wall akinesis, trace MR, mild AR, mild TR. Review of Systems Constitutional: Denied any fatigue denied any fever. Cardio vascular: denied any chest pain, palpitations Gastrointestinal: denied any nausea, vomiting, diarrhea Pulmonary: Denied any shortness of breath cough Neurologic denied any new focal deficits All inpatient medications were reviewed and appropriate changes in these m edications as dictated in the interval history and assessment and plan. PHYSICAL EXAMINATION: GENERAL: The patient is alert and oriented x3, not in any acute distress. Well developed, well nourished. HEENT: Pupils are round and equally reacting to light. EOMI. No scleral icterus. No conjunctival pallor. Normocephalic, atraumatic. No pharyngeal erythema. No thyromegaly. CARDIOVASCULAR: S1 and S2 present. No murmurs, rubs, or gallops. PULMONARY: Chest is clear to auscultation, no wheezing or crackles. ABDOMEN: Soft, nontender, nondistended, normoactive bowel sounds. No palpable organomegaly. MUSCULOSKELETAL: No joint swelling or deformity. EXTREMITIES: No cyanosis, clubbing, or pedal edema. Mild peripheral edema worse on the left. NEUROLOGICAL: Gross neurological examination did not reveal any focal deficits. Does have significant generalized weakness elderly frail male SKIN: No rashes. Assessment and plan -New onset atrial fibrillation with rapid ventricular rate presently is presently rate controlled on amiodarone and metoprolol patient was started on Eliquis by cardiology. -Episodes of ventricular tachycardia patient had an AICD discharge patient is on amiodarone at this time as mentioned above -Coronary disease with previous stenting and patient has severe ischemic cardiomyopathy -Severe ischemic myopathy with EF of around 25% with an AICD -Troponin elevation possibly NSTEMI patient will undergo cardiac catheterization which has been scheduled for Wednesday. -Acute systolic CHF mild with peripheral edema patient is also hyponatremic and will be given a dose of IV Lasix if sodium levels is expected to improve with the Lasix. -Hypertension -Hyperlipidemia -Hypomagnesemia magnesium will be replaced, levels improved to 1.8. -Patient is being treated for urinary tract infection and patient is on doxycycline which will be resumed -Generalized deconditioning secondary to age-related muscle atrophy PT and OT evaluation probably will need placement upon discharge DVT prophylaxis: Patient is on Eliquis as mentioned above text The impression and plan of care has been dictated by Myriam Powell, Nurse Practitioner as directed. Dr. Leyla MD I have performed a history and physical examination and medical decision making of this patient, discussed the same with the dictator, and agree with the dictators assessment and plan as written, documented as a scribe. Based on total visit time, I have performed more than 50% of this visit. Objective - Vital Signs Vital signs: Vital Signs Temp 97.6 F 05/23/23 12:24 Pulse 61 05/23/23 12:24 Resp 18 05/23/23 12:24 BP 135/65 05/23/23 12:24 Pulse Ox 96 05/23/23 12:24 FiO2 Intake & Output 05/22/23 05/23/23 05/23/23 18:59 06:59 18:59 Intake Total 386.417 233.894 240 Output Total 850 350 800 Balance -463.583 -116.106 -560 Weight 86.5 kg Intake: Intake, IV Titration 46.417 233.894 Amount Amiodarone 450 mg In 233.894 Dextrose 5% in Water 250 ml @ 0.5 MG/MIN 16.667 mls/hr IV .Q15H [facility] Rx#: [id number] Diltiazem 125 mg In 46.417 Sodium Chloride 0.9% 100 ml @ 5 MG/HR 5 mls/hr IV .Q24H [facility] Rx#:[id number] Oral 340 240 Output: Urine 850 350 800 Stool 0 Other: # Bowel Movements 0 - Labs CBC & Chem 7: 05/21/23 22:42 05/23/23 06:14 Labs: Abnormal Lab Results - Last 24 Hours (Table) 05/23/23 Range/Units 06:14 Sodium 128 L (137-145) mmol/L Glucose 107 H (74-99) mg/dL Calcium 8.2 L (8.4-10.2) mg/dL HDL Cholesterol 32.00 L (40.00-60.00) mg/dL Assessment and Plan Time with Patient: Less than 30
--- NOTE | 2023-05-24 14:03 | P.PN ---
Subjective Progress Note Date: 05/24/23 HISTORY OF PRESENT ILLNESS: This is a 88-year-old male with a past medical history significant for coronary artery disease with previous stenting, ischemic cardiomyopathy, AICD implantation, hypertension, hyperlipidemia, and congestive heart failure. Patient follows in the office with Dr. Kearns. We have been asked to see the patient in consultation for A-fib with RVR and defibrillator discharge. Patient examined at the bedside. Patient states he has been hospitalized [facility] for the past week secondary to UTI and gastroenteritis. He states he was discharged home and was home for approximately 1 hour. He states that he was trying to get out of his chair to go to the bathroom when he fell. He states that he remembers falling and did not lose consciousness. He denied having any chest pain or pressure or shortness of breath prior to this. He denied having any dizziness or lightheadedness. Patient then states that he felt his defibrillator discharge 5 times. Patient states his defibrillator has only went off 1 other time to his knowledge and it was many years ago. Interr ogation of patient's device does reveal episodes of ventricular tachycardia with AICD discharge. The patient was also found to be in atrial fibrillation with RVR. The patient denies a previous history of atrial fibrillation. He was started on IV Cardizem. He remains in atrial fibrillation this morning with a heart rate in the 90s. DIAGNOSTICS: - EKG reveals atrial fibrillation with RVR. - Chest xray chronic changes and cardiomegaly without acute pulmonary process. - Laboratory data: WBC 8.2. Hemoglobin 15.4. Platelet count 139. Sodium 131. Potassium 3.5. BUN 13. Creatinine 0.66. Magnesium 1.4. Troponin 0.065. 1.510. - Current home cardiac medications include: Medication list not updated at the time of dictation. - Most recent echocardiogram obtained in December 2021 reveals ejection fraction 25%, mild TR, mild AR. - Cardiac catheterization history: 2013 with stenting to the mid RCA and proximal RCA. 05/23/2023 Patient examined this morning the bedside. Patient denies chest pain or pressure. He denies shortness of breath. He remains on IV amiodarone. Vital signs are stable. Echocardiogram completed revealing ejection fraction 20 to 25%, apical septum akinesis, mid to apical anterior wall akinesis, trace MR, mild AR, mild TR. 05/23 Patient denies having any chest pain or pressure. No shortness of breath. IV amiodarone has been transition to oral 400 mg twice daily. He is tentatively scheduled for cardiac cath tomorrow and Eliquis will be discontinued for this evening. Blood pressure 141/80, heart rate 63, pulse ox 95% on room air. Sodium 128, potassium 3.5, creatinine 0.76. Triglycerides 91, cholesterol 87, LDL 36, HDL 32. PHYSICAL EXAM: VITAL SIGNS: Reviewed. GENERAL: Well-developed in no acute distress. HEENT: Head is normocephalic. Pupils are equal, round. Sclerae anicteric. Mucous membranes of the mouth are moist. Neck supple. No JVD or thyromegaly LUNGS: Respirations even and unlabored. Lungs essentially clear to auscultation bilaterally. HEART: Regular rate and rhythm. S1 and S2 heard. ABDOMEN: Soft. Nondistended. Nontender. EXTREMITIES: Normal range of motion. No clubbing or cyanosis. Peripheral pulses intact. No lower extremity edema NEUROLOGIC: Awake and alert. Oriented x 3. ASSESSMENT: New onset atrial fibrillation with RVR Ventricular tachycardia, status post AICD discharge discharge Elevated troponins, likely secondary to A-fib with RVR along with ventricular tachycardia and AICD discharge Coronary artery disease with previous stenting Ischemic cardiomyopathy, EF 25% History of ICD implantation Hypertension Hyperlipidemia Congestive heart failure with reduced EF, currently euvolemic Hypomagnesemia PLAN: Continue current cardiac medications Continue oral amiodarone 400 mg Eliquis has been discontinued and may be resumed after cardiac Will plan for cardiac catheterization on Wednesday. Continue telemetry monitoring Further recommendations pending patient course Nurse practitioner note has been reviewed by physician. Signing provider agrees with the documented findings, assessment, and plan of care documented by SEWING MACHINE OPERATOR ZIPPER as a scribe. Objective - Vital Signs Vital signs: Vital Signs Temp 98.5 F 05/24/23 00:00 Pulse 57 L 05/24/23 04:00 Resp 16 05/24/23 04:00 BP 138/65 05/24/23 04:00 Pulse Ox 96 05/24/23 04:00 FiO2 Intake & Output 05/23/23 05/24/23 05/24/23 18:59 06:59 18:59 Intake Total 440 10 Output Total 1100 1450 Balance -660 -1440 Weight 89.4 kg Intake: IV 10 Invasive Line 1 10 Oral 440 Output: Urine 1100 1450 Other: Voiding Method Urinal # Voids 1 # Bowel Movements 0 - Labs CBC & Chem 7: 05/21/23 22:42 05/23/23 06:14 Labs: Abnormal Lab Results - Last 24 Hours (Table) 05/23/23 Range/Units 06:14 HDL Cholesterol 32.00 L (40.00-60.00) mg/dL
[2023-05-24] MEDS: MAGNESIUM HYDROXIDE 2,400 MG/30 ML CUP PO PRN (16:25)
--- NOTE | 2023-05-24 19:03 | P.PN ---
Subjective Progress Note Date: 05/24/23 HISTORY OF PRESENT ILLNESS: This is a 88-year-old male with a past medical history significant for coronary artery disease with previous stenting, ischemic cardiomyopathy, AICD implantation, hypertension, hyperlipidemia, and congestive heart failure. Patient follows in the office with Dr. Kearns. We have been asked to see the patient in consultation for A-fib with RVR and defibrillator discharge. Patient examined at the bedside. Patient states he has been hospitalized [facility] for the past week secondary to UTI and gastroenteritis. He states he was discharged home and was home for approximately 1 hour. He states that he was trying to get out of his chair to go to the bathroom when he fell. He states that he remembers falling and did not lose consciousness. He denied having any chest pain or pressure or shortness of breath prior to this. He denied having any dizziness or lightheadedness. Patient then states that he felt his defibrillator discharge 5 times. Patient states his defibrillator has only went off 1 other time to his knowledge and it was many years ago. Interrog ation of patient's device does reveal episodes of ventricular tachycardia with AICD discharge. The patient was also found to be in atrial fibrillation with RVR. The patient denies a previous history of atrial fibrillation. He was started on IV Cardizem. He remains in atrial fibrillation this morning with a heart rate in the 90s. 05/23: Patient is sitting up in the chair his son was at the bedside, patient denies any chest pain at this time, he does not appear to be short of breath, he denies any abdominal pain, nausea or vomiting, he is scheduled to go for left heart catheterization tomorrow morning, for evaluation of his coronary anatomy, patient does have an underlying history of coronary artery disease status post PCI of the mid and proximal RCA back in 2013, his echocardiogram last was done in 2021 that showed evidence of ejection fraction of 25% suggestive of ischemic cardiomyopathy with mild mitral regurgitation and tricuspid regurgitation, patient underwent echocardiogram at this hospital and that showed severe ischemic cardiomyopathy with ejection fraction 25% with mild aortic regurgitation and dilated aortic root, patient is scheduled for left heart catheterization tomorrow morning, patient's and his son were asking about CBD capsule that he use as an outpatient to control his pain because of his lower back issues, patient did have multiple episode of epidural injection that did not help his spondylosis and spinal stenosis of the lumbar spine, and he is asking for CBD medication at this point. REVIEW OF SYSTEMS: Constitutional: No documented fever, no chills, no night sweats. No weight change. positive for weakness, fatigue or lethargy. No daytime sleepiness. EENT: No headache. positive for loss of vision. loss of Hearing, no ringing in the ears, no dizziness. No nasal drainage or congestion. No epistaxis. No sore throat. Lungs: positive for shortness of breath, no cough, no sputum production. No wheezing. Reports dyspnea with activity. Cardiovascular: No chest pain, no lower extremity edema. No palpitations. No paroxysmal nocturnal dyspnea. No orthopnea. No lightheadedness or dizziness. No syncopal episodes. Abdominal: Reports abdominal pain. No nausea, vomiting. No diarrhea. No constipation. No bloody or tarry stools reports loss of appetite. Genitourinary: No dysuria, increased frequency, urgency. No urinary retention. Musculoskeletal: No myalgias. positive for muscle weakness, positive for gait dysfunction, no frequent falls. positive for back pain. No neck pain. Integumentary: sacral lesion, No rash or pruritus. No unusual bruising. No change in hair or nails. Neurologic: No aphasia. No facial droop. No change in mentation. No head injury. No headache. No paralysis. No paresthesia. Psychiatric: positive for depression. No anxiety. No mood swings. Endocrine: No abnormal blood sugars. No weight change. PHYSICAL EXAMINATION: General: This is an 88-year-old gentleman sitting up in bed no apparent distress. HEENT: Head is atraumatic, normocephalic, pupils were equal round reactive to light and recommendation, extraocular muscle movement were intact, sclera nonicteric, conjunctivae were pale, mucous membranes of the mouth are somewhat dry. Neck: Supple, no JVP, normal carotid upstroke bilaterally, no lymphadenopathy. Chest: Decreased breath sounds at the bases, few rhonchi, no expiratory wheezes, no chest wall tenderness, no intercostal retractions. Heart: First heart sound is normal, second heart sounds normal there is systolic ejection murmur 2/6 located in the left sternal border, there is an AICD in the left upper precordium. Abdomen: Soft, nontender, nondistended, positive bowel sounds. Extremities: There is no edema no calf tenderness DP +2 bilaterally. Neurologic examination: Patient is awake alert and oriented x3, cranial nerves II-12 appear grossly intact, muscle power were 4 out of 5 in upper extremities and 3 out of 5 in bilateral lower extremities, deep tendon reflexes normal bilaterally. ASSESSMENT AND PLAN: 1. Paroxysmal atrial fibrillation with rapid ventricular response patient is currently back into sinus rhythm, continue patient on metoprolol 75 mg once every day, continue patient on amiodarone 400 mg orally twice every day, his Eliquis was placed on hold until after left heart catheterization that scheduled for tomorrow morning. 2. Elevated troponin likely due to type II DC due to atrial fibrillation with rapid ventricular response. Patient is scheduled to go for left heart catheterization tomorrow morning, continue patient on aspirin 81 mg once every day, continue metoprolol 75 mg once every day lisinopril 10 mg once every day, monitor the patient very closely. 3. ICD discharge due to recurrent ventricular tachycardia/ventricular fibrillation. Continue amiodarone 400 mg orally twice every day, continue metoprolol 75 mg once every day, patient device was interrogated. Cardiology is following. 4. History of coronary artery disease status post PCI of the proximal and mid RCA back in 2013. Patient is scheduled to go for left heart catheterization tomorrow morning, meanwhile continue aspirin 81 mg once every day, metoprolol 75 mg once every day, lisinopril 10 mg once every day, atorvastatin 80 mg once every day, 5. Ischemic cardiomyopathy with reduced left ventricular ejection fraction at 25%. Continue Lasix 20 mg IV push every 12 hours, continue metoprolol 75 mg once every day, continue spironolactone 12.5 mg once every day, continue lisinopril 10 mg orally once every day patient appears to be euvolemic at this time. 6. Recent Staphylococcus epidermidis urinary tract infection. Continue doxycycline 100 mg orally twice every day. 7. 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 Continue patient on hydrocodone as well as baclofen for pain control. Patient is allowed to use his CBD capsule once every day. Family will provide. I spoke with the nursing staff about allowing the patient to have a capsule once every day. 8. 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 9. Hypertension and hypertensive cardiovascular disease. Continue patient on metoprolol 75 mg once every day, continue lisinopril 10 mg once every day and spironolactone 12.5 mg once every day monitor the patient blood pressure very closely. 10. Mixed hyperlipidemia. Continue patient on atorvastatin 80 mg once every day, monitor lipid panel, keep LDL 55 or less. 11. DVT prophylaxis. Patient will be restarted back on Eliquis 5 mg orally twice every day after left heart catheterization. 12. GI prophylaxis. Continue patient on PPI. 13. Slow transit constipation. Continue patient on lactulose 20 g orally 3 times every day, patient will be started on MiraLAX 17 g in 8 ounce of water, patient also will be getting milk of magnesia along with prune juice today. 14. Medical debility. Physical therapy and Occupational Therapy evaluation along with health care social worker consultation for subacute rehabilitation. 15. Patient is full code. 16. Prognosis is guarded. Objective - Vital Signs Vital signs: Vital Signs Temp 98.1 F 05/24/23 16:00 Pulse 61 05/24/23 16:00 Resp 17 05/24/23 16:00 BP 110/71 05/24/23 16:00 Pulse Ox 92 L 05/24/23 16:00 FiO2 Intake & Output 05/23/23 05/24/23 05/24/23 18:59 06:59 18:59 Intake Total 440 10 240 Output Total 1100 1450 Balance -660 -1440 240 Weight 89.4 kg Intake: IV 10 Invasive Line 1 10 Oral 440 240 Output: Urine 1100 1450 Other: Voiding Method Urinal Urinal # Voids 1 1 # Bowel Movements 0 0 - Labs CBC & Chem 7: 05/21/23 22:42 05/23/23 06:14
[2023-05-24] MEDS: LACTULOSE 20 GM/30 ML CUP PO PRN (20:28)
[2023-05-25] MEDS ORDERED: HEPARIN SODIUM,PORCINE 10,000 UNIT in SODIUM CHLORIDE 0.9% 1,000 ML IRRIGATION PRN (07:00)
[2023-05-25] MEDS ORDERED: HEPARIN SODIUM,PORCINE (1 ML) 2,500 UNIT in SODIUM CHLORIDE 0.9% 250 ML IRRIGATION PRN (07:00)
[2023-05-25] MEDS ORDERED: ALPRAZolam 0.5 MG TAB PO PRN (07:11)
[2023-05-25] MEDS ORDERED: ALPRAZolam 0.25 MG TAB PO PRN (07:11)
[2023-05-25] MEDS ORDERED: NITROGLYCERIN SL TABS 0.4 MG TAB SUBLINGUAL PRN (07:11)
[2023-05-25] MEDS ORDERED: ATORVASTATIN 80 MG TAB PO STA (07:11)
[2023-05-25] MEDS ORDERED: LIDOCAINE 1% INJ 10MG/ML (20 ML MDV) ONE (07:25)
[2023-05-25] MEDS ORDERED: VERAPAMIL 2.5 MG/ML 2 ML AMP ONE (07:25)
[2023-05-25] MEDS: SODIUM CHLORIDE 0.9% 1,000 ML IV ONE (08:00)
[2023-05-25] MEDS ORDERED: fentaNYL (PF) 50 MCG/ML 2 ML AMP ONE (08:03)
[2023-05-25] MEDS: fentaNYL (PF) 50 MCG/ML 2 ML AMP IVP ONE (08:09)
[2023-05-25] MEDS: LIDOCAINE 1% INJ 10MG/ML (20 ML MDV) SQ ONE (08:10)
[2023-05-25] MEDS: MIDAZOLAM 2 MG/2 ML VIAL IVP ONE (08:13)
[2023-05-25] MEDS: VERAPAMIL SYRINGE (5 MG/10 ML) INTRAARTER ONE (08:14)
[2023-05-25] MEDS ORDERED: HEPARIN SODIUM 1,000 UN/ML (10ML VL) ONE (08:15)
[2023-05-25] MEDS: HEPARIN SODIUM 1,000 UN/ML (10ML VL) IV ONE (08:20)
[2023-05-25] MEDS: IOPAMIDOL-370 100ML BTL INJ ONE ×2 (08:31)
[2023-05-25] MEDS ORDERED: RX INFO: IV CONTRAST WAS GIVEN 1 EACH MISC MISCELLANE PRN (08:47)
--- NOTE | 2023-05-25 08:53 | P.CARDCATH ---
Date of Procedure: 05/25/23 Description of Procedure: Cardiac Catheterization: The patient is an 88-year-old male with a known history of CAD, severe cardiomyopathy who presented with discharges from his ICD and troponin elevation. Recommendations were made regarding cardiac catheterization, the risks and the complications were discussed with the patient who is in full understanding and agreement. Procedure Description: Patient was brought to ear mold laboratory technician in fasting semi-sedated state after receiving Fentanyl and Benadryl achieiving moderate conscious sedated state. Using Xylocaine Anesthesia and modified Seldinger technique, a 6-Amharic sheath was introduced in the right radial artery . Subsequently, selective coronary angiography was performed using a 5-Amharic 3.5 bend right Ana catheter and 5 Amharic Dami catheter. Multiple views of the coronary artery including hemiaxial views were obtained. Following that, catheter and sheath were removed. Hemostasis was obtained with deployment of vascular band . There was no immediate complication. Patient was returned to room in stable condition. Of note, the patient received a total of 4500 units of intravenous heparin as well as intra-arterial verapamil. Findings: Left main: This is a large size vessel, bifurcating into LAD and left circumflex, left main has no obstructive disease LAD: This is a large size vessel, giving rise to 3 diagonal branch. The proximal LAD has 30 to 40% plaque extending into the mid segment with no high- grade stenosis Left circumflex: This is a nondominant vessel, giving rise to 2 obtuse marginal branch the first 1 is large in caliber. The left circumflex has mild intimal disease involving the obtuse marginal branch, with a area of stenosis up to 30 to 40%. RCA: This is a large dominant vessel, bifurcating into PDA and PLV. The stented segment in the proximal and mid RCA are patent with mild in-stent restenosis of 20 to 30% with no evidence of high-grade stenosis Conclusion: 1. Calcified coronary arteries 2. Mild to moderate triple-vessel disease 3. Patent stent in the RCA 4. Right dominance Recommendations: The patient will continue on present therapy, he will be evaluated for anticoagulation because of the episodes of atrial fibrillation in addition to continuing aggressive coronary risks modifications and treatment of his cardiomyopathy. The findings and the recommendations were discussed with the patient he was in full understanding and agreement. Duration of sedation is 25 minutes.
[2023-05-25] MEDS: ASPIRIN 325 MG TAB PO STA (09:35)
[2023-05-25] MEDS: FUROSEMIDE 40 MG TAB PO SCH (09:58)
[2023-05-25] MEDS: SODIUM CHLORIDE 0.9% 1,000 ML IV SCH (09:58)
[2023-05-25 11:30] LABS: Basophils % (A) 1 %; Eosinophils # (A) 0.3 k/uL (0-0.7); Eosinophils % (A) 4 %; HCT 44.3 % (39.0-53.0); Lymphocytes # (A) 1.4 k/uL (1.0-4.8); Lymphocytes % (A) 17 %; MCH 33.6 pg (25.0-35.0); MCHC 33.8 g/dL (31.0-37.0); MCV 99.5 fL (80.0-100.0); Mean Platelet Volume 9.6; Monocytes # (A) 0.6 k/uL (0-1.0); Monocytes % (A) 7 %; Neutrophils # (A) 5.7 k/uL (1.3-7.7); Neutrophils % (A) 70 %; Platelet Count 216 k/uL (150-450); RBC 4.45 m/uL (4.30-5.90); RDW 12.6 % (11.5-15.5); WBC 8.2 k/uL (3.8-10.6)
[2023-05-25 11:32] LABS: African American GFR (CKD) 88 (>60 ml/min/1.73 sqM); Anion Gap 6 mmol/L; Blood Urea Nitrogen 16 mg/dL (9-20); Calcium 8.8 mg/dL (8.4-10.2); Carbon Dioxide 28 mmol/L (22-30); Chloride 97 mmol/L (98-107); Glucose 93 mg/dL (74-99); Non-African American GFR(CKD) 76 (>60 ml/min/1.73 sqM); Potassium 4.3 mmol/L (3.5-5.1); Sodium 131 mmol/L (137-145)
[2023-05-25 11:36] LABS: ALT 64 U/L (4-49); AST 63 U/L (17-59); African American GFR (CKD) 88 (>60 ml/min/1.73 sqM); Alkaline Phosphatase 80 U/L (38-126); Anion Gap 8 mmol/L; Blood Urea Nitrogen 16 mg/dL (9-20); Calcium 8.9 mg/dL (8.4-10.2); Carbon Dioxide 26 mmol/L (22-30); Chloride 97 mmol/L (98-107); Glucose 94 mg/dL (74-99); Magnesium 1.9 mg/dL (1.6-2.3); Non-African American GFR(CKD) 76 (>60 ml/min/1.73 sqM); Potassium 4.3 mmol/L (3.5-5.1); Sodium 131 mmol/L (137-145); Total Bilirubin 1.1 mg/dL (0.2-1.3); Total Protein 5.5 g/dL (6.3-8.2)
--- NOTE | 2023-05-25 14:06 | P.PN ---
Subjective Progress Note Date: 05/25/23 HISTORY OF PRESENT ILLNESS: This is a 88-year-old male with a past medical history significant for coronary artery disease with previous stenting, ischemic cardiomyopathy, AICD implantation, hypertension, hyperlipidemia, and congestive heart failure. Patient follows in the office with Dr. Kearns. We have been asked to see the patient in consultation for A-fib with RVR and defibrillator discharge. Patient examined at the bedside. Patient states he has been hospitalized [facility] for the past week secondary to UTI and gastroenteritis. He states he was discharged home and was home for approximately 1 hour. He states that he was trying to get out of his chair to go to the bathroom when he fell. He states that he remembers falling and did not lose consciousness. He denied having any chest pain or pressure or shortness of breath prior to this. He denied having any dizziness or lightheadedness. Patient then states that he felt his defibrillator discharge 5 times. Patient states his defibrillator has only went off 1 other time to his knowledge and it was many years ago. Interr ogation of patient's device does reveal episodes of ventricular tachycardia with AICD discharge. The patient was also found to be in atrial fibrillation with RVR. The patient denies a previous history of atrial fibrillation. He was started on IV Cardizem. He remains in atrial fibrillation this morning with a heart rate in the 90s. DIAGNOSTICS: - EKG reveals atrial fibrillation with RVR. - Chest xray chronic changes and cardiomegaly without acute pulmonary process. - Laboratory data: WBC 8.2. Hemoglobin 15.4. Platelet count 139. Sodium 131. Potassium 3.5. BUN 13. Creatinine 0.66. Magnesium 1.4. Troponin 0.065. 1.510. - Current home cardiac medications include: Medication list not updated at the time of dictation. - Most recent echocardiogram obtained in December 2021 reveals ejection fraction 25%, mild TR, mild AR. - Cardiac catheterization history: 2013 with stenting to the mid RCA and proximal RCA. 05/23/2023 Patient examined this morning the bedside. Patient denies chest pain or pressure. He denies shortness of breath. He remains on IV amiodarone. Vital signs are stable. Echocardiogram completed revealing ejection fraction 20 to 25%, apical septum akinesis, mid to apical anterior wall akinesis, trace MR, mild AR, mild TR. 05/23 Patient denies having any chest pain or pressure. No shortness of breath. IV amiodarone has been transition to oral 400 mg twice daily. He is tentatively scheduled for cardiac cath tomorrow and Eliquis will be discontinued for this evening. Blood pressure 141/80, heart rate 63, pulse ox 95% on room air. Sodium 128, potassium 3.5, creatinine 0.76. Triglycerides 91, cholesterol 87, LDL 36, HDL 32. 05/24 Patient underwent cardiac catheterization this morning with Dr. Kearns which revealed calcified coronary arteries. Mild to moderate triple-vessel disease. Patent stent in the RCA. Right dominance. Blood pressure 117/69, heart rate 65, pulse ox 94% on room air. Repeat blood work reveals normal CBC. Sodium 131, potassium 4.3, creatinine 0.89. PHYSICAL EXAM: VITAL SIGNS: Reviewed. GENERAL: Well-developed in no acute distress. HEENT: Head is normocephalic. Pupils are equal, round. Sclerae anicteric. Mucous membranes of the mouth are moist. Neck supple. No JVD or thyromegaly LUNGS: Respirations even and unlabored. Lungs essentially clear to auscultation bilaterally. HEART: Regular rate and rhythm. S1 and S2 heard. ABDOMEN: Soft. Nondistended. Nontender. EXTREMITIES: Normal range of motion. No clubbing or cyanosis. Peripheral pulses intact. No lower extremity edema NEUROLOGIC: Awake and alert. Oriented x 3. ASSESSMENT: New onset atrial fibrillation with RVR Ventricular tachycardia, status post AICD discharge discharge Elevated troponins, likely secondary to A-fib with RVR along with ventricular tachycardia and AICD discharge Coronary artery disease with previous stenting Ischemic cardiomyopathy, EF 25% History of ICD implantation Hypertension Hyperlipidemia Congestive heart failure with reduced EF, currently euvolemic Hypomagnesemia PLAN: Continue current cardiac medications Continue oral amiodarone 400 mg twice daily for 2 weeks and then daily Increase lisinopril to 20 mg daily starting tomorrow Resume Eliquis tonight 5 mg twice daily Further recommendations pending patient course Nurse practitioner note has been reviewed by physician. Signing provider agrees with the documented findings, assessment, and plan of care documented by [employer] as a scribe. Objective - Vital Signs Vital signs: Vital Signs Temp 98 F 05/25/23 08:48 Pulse 53 L 05/25/23 09:33 Resp 17 05/25/23 09:33 BP 151/76 05/25/23 09:33 Pulse Ox 96 05/25/23 09:33 FiO2 Intake & Output 05/24/23 05/25/23 05/25/23 18:59 06:59 18:59 Intake Total 240 150 Output Total 625 Balance 240 -625 150 Intake: IV 150 Oral 240 Output: Urine 625 Other: Voiding Method Urinal Urinal Urinal # Voids 1 0 # Bowel Movements 0 - Labs CBC & Chem 7: 05/25/23 09:23 05/25/23 09:23
--- NOTE | 2023-05-25 16:34 | P.PN ---
Subjective Progress Note Date: 05/25/23 HISTORY OF PRESENT ILLNESS: This is a 88-year-old male with a past medical history significant for coronary artery disease with previous stenting, ischemic cardiomyopathy, AICD implantation, hypertension, hyperlipidemia, and congestive heart failure. Patient follows in the office with Dr. Kearns. We have been asked to see the patient in consultation for A-fib with RVR and defibrillator discharge. Patient examined at the bedside. Patient states he has been hospitalized [facility] for the past week secondary to UTI and gastroenteritis. He states he was discharged home and was home for approximately 1 hour. He states that he was trying to get out of his chair to go to the bathroom when he fell. He states that he remembers falling and did not lose consciousness. He denied having any chest pain or pressure or shortness of breath prior to this. He denied having any dizziness or lightheadedness. Patient then states that he felt his defibrillator discharge 5 times. Patient states his defibrillator has only went off 1 other time to his knowledge and it was many years ago. Interrog ation of patient's device does reveal episodes of ventricular tachycardia with AICD discharge. The patient was also found to be in atrial fibrillation with RVR. The patient denies a previous history of atrial fibrillation. He was started on IV Cardizem. He remains in atrial fibrillation this morning with a heart rate in the 90s. 05/23: Patient is sitting up in the chair his son was at the bedside, patient denies any chest pain at this time, he does not appear to be short of breath, he denies any abdominal pain, nausea or vomiting, he is scheduled to go for left heart catheterization tomorrow morning, for evaluation of his coronary anatomy, patient does have an underlying history of coronary artery disease status post PCI of the mid and proximal RCA back in 2013, his echocardiogram last was done in 2021 that showed evidence of ejection fraction of 25% suggestive of ischemic cardiomyopathy with mild mitral regurgitation and tricuspid regurgitation, patient underwent echocardiogram at this hospital and that showed severe ischemic cardiomyopathy with ejection fraction 25% with mild aortic regurgitation and dilated aortic root, patient is scheduled for left heart catheterization tomorrow morning, patient's and his son were asking about CBD capsule that he use as an outpatient to control his pain because of his lower back issues, patient did have multiple episode of epidural injection that did not help his spondylosis and spinal stenosis of the lumbar spine, and he is asking for CBD medication at this point. 05/24: Patient is sitting up in the recliner chair he still have a very poor appetite, he has not had a bowel movement despite the use of brown bomb along with lactulose 20 g orally 3 times every day along with senna, we will try Dulcolax suppository 10 mg if that does not work we will allow the patient to have a Fleet enema, monitor the patient very closely, patient underwent left heart catheterization today did not have any significant disease we will continue with conservative management for now. REVIEW OF SYSTEMS: Constitutional: No documented fever, no chills, no night sweats. No weight change. positive for weakness, fatigue or lethargy. No daytime sleepiness. EENT: No headache. positive for loss of vision. loss of Hearing, no ringing in the ears, no dizziness. No nasal drainage or congestion. No epistaxis. No sore throat. Lungs: positive for shortness of breath, no cough, no sputum production. No wheezing. Reports dyspnea with activity. Cardiovascular: No chest pain, no lower extremity edema. No palpitations. No paroxysmal nocturnal dyspnea. No orthopnea. No lightheadedness or dizziness. No syncopal episodes. Abdominal: Reports abdominal pain. No nausea, vomiting. No diarrhea. No constipation. No bloody or tarry stools reports loss of appetite. Genitourinary: No dysuria, increased frequency, urgency. No urinary retention. Musculoskeletal: No myalgias. positive for muscle weakness, positive for gait dysfunction, no frequent falls. positive for back pain. No neck pain. Integumentary: sacral lesion, No rash or pruritus. No unusual bruising. No change in hair or nails. Neurologic: No aphasia. No facial droop. No change in mentation. No head injury. No headache. No paralysis. No paresthesia. Psychiatric: positive for depression. No anxiety. No mood swings. Endocrine: No abnormal blood sugars. No weight change. PHYSICAL EXAMINATION: General: This is an 88-year-old gentleman sitting up in bed no apparent distress. HEENT: Head is atraumatic, normocephalic, pupils were equal round reactive to light and recommendation, extraocular muscle movement were intact, sclera nonicteric, conjunctivae were pale, mucous membranes of the mouth are somewhat dry. Neck: Supple, no JVP, normal carotid upstroke bilaterally, no lymphadenopathy. Chest: Decreased breath sounds at the bases, few rhonchi, no expiratory wheezes, no chest wall tenderness, no intercostal retractions. Heart: First heart sound is normal, second heart sounds normal there is systolic ejection murmur 2/6 located in the left sternal border, there is an AICD in the left upper precordium. Abdomen: Soft, nontender, nondistended, positive bowel sounds. Extremities: There is no edema no calf tenderness DP +2 bilaterally. Neurologic examination: Patient is awake alert and oriented x3, cranial nerves II-12 appear grossly intact, muscle power were 4 out of 5 in upper extremities and 3 out of 5 in bilateral lower extremities, deep tendon reflexes normal bilaterally. ASSESSMENT AND PLAN: 1. Paroxysmal atrial fibrillation with rapid ventricular response patient is currently back into sinus rhythm, continue patient on metoprolol 75 mg once every day, continue patient on amiodarone 400 mg orally twice every day, continue Eliquis 5 mg orally twice every day monitor the patient very closely. 2. Elevated troponin likely due to type II VA due to atrial fibrillation with rapid ventricular response. Left heart catheterization showed mild disease no PCI continue patient on aspirin 81 mg once every day, continue metoprolol 75 mg once every day lisinopril 10 mg once every day, monitor the patient very closely. 3. ICD discharge due to recurrent ventricular tachycardia/ventricular fibrillation. Continue amiodarone 400 mg orally twice every day, continue metoprolol 75 mg once every day, patient device was interrogated. Cardiology is following. 4. History of coronary artery disease status post PCI of the proximal and mid RCA back in 2013. meanwhile continue aspirin 81 mg once every day, metoprolol 75 mg once every day, lisinopril 10 mg once every day, atorvastatin 80 mg once every day, 5. Ischemic cardiomyopathy with reduced left ventricular ejection fraction at 25%. Continue frusemide 40 mg , continue metoprolol 75 mg once every day, continue spironolactone 12.5 mg once every day, continue lisinopril 10 mg orally once every day patient appears to be euvolemic at this time. 6. Recent Staphylococcus epidermidis urinary tract infection. Continue doxycycline 100 mg orally twice every day. 7. 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 Continue patient on hydrocodone as well as baclofen for pain control. Patient is allowed to use his CBD capsule once every day. Family will provide. I spoke with the nursing staff about allowing the patient to have a capsule once every day. 8. 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 9. Hypertension and hypertensive cardiovascular disease. Continue patient on metoprolol 75 mg once every day, continue lisinopril 10 mg once every day and spironolactone 12.5 mg once every day monitor the patient blood pressure very closely. 10. Mixed hyperlipidemia. Continue patient on atorvastatin 80 mg once every day, monitor lipid panel, keep LDL 55 or less. 11. DVT prophylaxis. Patient will be restarted back on Eliquis 5 mg orally twice every day after left heart catheterization. 12. GI prophylaxis. Continue patient on PPI. 13. Slow transit constipation. Continue patient on lactulose 20 g orally 3 times every day, patient will be started on MiraLAX 17 g in 8 ounce of water, patient also will be started on Fleet enema as well as Dulcolax suppository since he did not have a good result yesterday. 14. Medical debility. Physical therapy and Occupational Therapy evaluation along with delinquency prevention social worker consultation for subacute rehabilitation. 15. Patient is full code. 16. Prognosis is guarded. Objective - Vital Signs Vital signs: Vital Signs Temp 97.6 F 05/25/23 11:19 Pulse 63 05/25/23 12:33 Resp 18 05/25/23 12:33 BP 119/62 05/25/23 12:33 Pulse Ox 94 L 05/25/23 11:19 FiO2 Intake & Output 05/24/23 05/25/23 05/25/23 18:59 06:59 18:59 Intake Total 240 330 Output Total 625 50 Balance 240 -625 280 Intake: IV 150 Oral 240 180 Output: Urine 625 50 Other: Voiding Method Urinal Urinal Urinal # Voids 1 0 # Bowel Movements 0 - Labs CBC & Chem 7: 05/25/23 09:23 05/25/23 09:23 Labs: Abnormal Lab Results - Last 24 Hours (Table) 05/25/23 05/25/23 Range/Units 09:23 09:23 Sodium 131 L 131 L (137-145) mmol/L Chloride 97 L 97 L (98-107) mmol/L AST 63 H (17-59) U/L ALT 64 H (4-49) U/L Total Protein 5.5 L (6.3-8.2) g/dL Albumin 3.0 L (3.5-5.0) g/dL
[2023-05-25] MEDS: NA PHOS,M-B/NA PHOS,DI-BA 133 ML ENEMA RECTAL STA (17:25)
[2023-05-25] MEDS: bisacodyL 10 MG SUPP RECTAL STA (17:46)
[2023-05-25] MEDS: APIXABAN 5 MG TAB PO SCH (21:23)
[2023-05-26] MEDS ORDERED: ZINC OXIDE PASTE (Z-GUARD) 1 APPLIC TOPICAL PRN (06:36)
[2023-05-26 08:44] VITALS: PULSE 56; TEMP 97.7
[2023-05-26] MEDS: lisinopriL 20 MG TAB PO SCH (09:25)
[2023-05-26 11:39] VITALS: BP 153/73; RESP 17
--- NOTE | 2023-05-26 14:16 | P.PN ---
Subjective Progress Note Date: 05/26/23 HISTORY OF PRESENT ILLNESS: This is a 88-year-old male with a past medical history significant for coronary artery disease with previous stenting, ischemic cardiomyopathy, AICD implantation, hypertension, hyperlipidemia, and congestive heart failure. Patient follows in the office with Dr. Kearns. We have been asked to see the patient in consultation for A-fib with RVR and defibrillator discharge. Patient examined at the bedside. Patient states he has been hospitalized [facility] for the past week secondary to UTI and gastroenteritis. He states he was discharged home and was home for approximately 1 hour. He states that he was trying to get out of his chair to go to the bathroom when he fell. He states that he remembers falling and did not lose consciousness. He denied having any chest pain or pressure or shortness of breath prior to this. He denied having any dizziness or lightheadedness. Patient then states that he felt his defibrillator discharge 5 times. Patient states his defibrillator has only went off 1 other time to his knowledge and it was many years ago. Interr ogation of patient's device does reveal episodes of ventricular tachycardia with AICD discharge. The patient was also found to be in atrial fibrillation with RVR. The patient denies a previous history of atrial fibrillation. He was started on IV Cardizem. He remains in atrial fibrillation this morning with a heart rate in the 90s. DIAGNOSTICS: - EKG reveals atrial fibrillation with RVR. - Chest xray chronic changes and cardiomegaly without acute pulmonary process. - Laboratory data: WBC 8.2. Hemoglobin 15.4. Platelet count 139. Sodium 131. Potassium 3.5. BUN 13. Creatinine 0.66. Magnesium 1.4. Troponin 0.065. 1.510. - Current home cardiac medications include: Medication list not updated at the time of dictation. - Most recent echocardiogram obtained in December 2021 reveals ejection fraction 25%, mild TR, mild AR. - Cardiac catheterization history: 2013 with stenting to the mid RCA and proximal RCA. 05/23/2023 Patient examined this morning the bedside. Patient denies chest pain or pressure. He denies shortness of breath. He remains on IV amiodarone. Vital signs are stable. Echocardiogram completed revealing ejection fraction 20 to 25%, apical septum akinesis, mid to apical anterior wall akinesis, trace MR, mild AR, mild TR. 05/23 Patient denies having any chest pain or pressure. No shortness of breath. IV amiodarone has been transition to oral 400 mg twice daily. He is tentatively scheduled for cardiac cath tomorrow and Eliquis will be discontinued for this evening. Blood pressure 141/80, heart rate 63, pulse ox 95% on room air. Sodium 128, potassium 3.5, creatinine 0.76. Triglycerides 91, cholesterol 87, LDL 36, HDL 32. 05/24 Patient underwent cardiac catheterization this morning with Dr. Kearns which revealed calcified coronary arteries. Mild to moderate triple-vessel disease. Patent stent in the RCA. Right dominance. Blood pressure 117/69, heart rate 65, pulse ox 94% on room air. Repeat blood work reveals normal CBC. Sodium 131, potassium 4.3, creatinine 0.89. 05/25 Patient is seen today in follow-up. Yesterday lisinopril was increased, blood pressure this morning 123/76-153/73, heart rate is in the 50s, pulse ox 98% on room air. Patient is a sinus bradycardia. PHYSICAL EXAM: VITAL SIGNS: Reviewed. GENERAL: Well-developed in no acute distress. HEENT: Head is normocephalic. Pupils are equal, round. Sclerae anicteric. Mucous membranes of the mouth are moist. Neck supple. No JVD or thyromegaly LUNGS: Respirations even and unlabored. Lungs essentially clear to auscultation bilaterally. HEART: Regular rate and rhythm. S1 and S2 heard. ABDOMEN: Soft. Nondistended. Nontender. EXTREMITIES: Normal range of motion. No clubbing or cyanosis. Peripheral pulses intact. No lower extremity edema NEUROLOGIC: Awake and alert. Oriented x 3. ASSESSMENT: New onset atrial fibrillation with RVR Ventricular tachycardia, status post AICD discharge discharge Elevated troponins, likely secondary to A-fib with RVR along with ventricular tachycardia and AICD discharge Coronary artery disease with previous stenting Ischemic cardiomyopathy, EF 25% History of ICD implantation Hypertension Hyperlipidemia Congestive heart failure with reduced EF, currently euvolemic Hypomagnesemia PLAN: Continue current cardiac medications Continue oral amiodarone 400 mg twice daily for 2 weeks and then 400 mg daily Continue increased dose of lisinopril Resume Eliquis tonight 5 mg twice daily Patient is cleared for discharge from cardiology. Patient may follow-up with Dr. Kearns in 1 week. Nurse practitioner note has been reviewed by physician. Signing provider agrees with the documented findings, assessment, and plan of care documented by [employer] REPA[employer] as a scribe. Objective - Vital Signs Vital signs: Vital Signs Temp 97.7 F 05/26/23 08:00 Pulse 56 L 05/26/23 08:00 Resp 20 05/26/23 08:00 BP 123/76 05/26/23 08:00 Pulse Ox 96 05/26/23 08:00 FiO2 Intake & Output 05/25/23 05/26/23 05/26/23 18:59 06:59 18:59 Intake Total 510 480 Output Total 50 125 100 Balance 460 -125 380 Intake: IV 150 Oral 360 480 Output: Urine 50 125 100 Other: Voiding Method Urinal Urinal # Voids 0 # Bowel Movements 1 2 - Labs CBC & Chem 7: 05/25/23 09:23 05/25/23 09:23 Labs: Abnormal Lab Results - Last 24 Hours (Table) 05/25/23 05/25/23 Range/Units 09:23 09:23 Sodium 131 L 131 L (137-145) mmol/L Chloride 97 L 97 L (98-107) mmol/L AST 63 H (17-59) U/L ALT 64 H (4-49) U/L Total Protein 5.5 L (6.3-8.2) g/dL Albumin 3.0 L (3.5-5.0) g/dL
--- NOTE | 2023-05-26 14:25 | P.DS ---
Providers Date of admission: 05/22/23 01:36 Expected date of discharge: 05/26/23 Attending physician: Oskar Rowland Consults: 05/22/23 01:34 Consult Physician Routine Consulting Provider: Benji Kearns Consult Reason/Comments: Atrial fibrillation with rapid ventricular rate. Defibrillator discharge. Do you want consulting provider notified?: Yes Primary care physician: Oskar Rowland Hospital Course: HISTORY OF PRESENT ILLNESS: This is a 88-year-old male with a past medical history significant for coronary artery disease with previous stenting, ischemic cardiomyopathy, AICD implantation, hypertension, hyperlipidemia, and congestive heart failure. Patient follows in the office with Dr. Kearns. We have been asked to see the patient in consultation for A-fib with RVR and defibrillator discharge. Patient examined at the bedside. Patient states he has been hospitalized [facility] for the past week secondary to UTI and gastroenteritis. He states he was discharged home and was home for approximately 1 hour. He states that he was trying to get out of his chair to go to the bathroom when he fell. He states that he remembers falling and did not lose consciousness. He denied having any chest pain or pressure or shortness of breath prior to this. He denied having any dizziness or lightheadedness. Patient then states that he felt his defibrillator discharge 5 times. Patient states his defibrillator has only went off 1 other time to his knowledge and it was many years ago. Interrogation of patient's device does reveal episodes of ventricular tachycardia with AICD discharge. The patient was also found to be in atrial fibrillation with RVR. The patient denies a previous history of atrial fibrillation. He was started on IV Cardizem. He remains in atrial fibrillation this morning with a heart rate in the 90s. 05/23: Patient is sitting up in the chair his son was at the bedside, patient denies any chest pain at this time, he does not appear to be short of breath, he denies any abdominal pain, nausea or vomiting, he is scheduled to go for left heart catheterization tomorrow morning, for evaluation of his coronary anatomy, patient does have an underlying history of coronary artery disease status post PCI of the mid and proximal RCA back in 2013, his echocardiogram last was done in 2021 that showed evidence of ejection fraction of 25% suggestive of ischemic cardiomyopathy with mild mitral regurgitation and tricuspid regurgitation, patient underwent echocardiogram at this hospital and that showed severe ischemic cardiomyopathy with ejection fraction 25% with mild aortic regurgitation and dilated aortic root, patient is scheduled for left heart catheterization tomorrow morning, patient's and his son were asking about CBD capsule that he use as an outpatient to control his pain because of his lower back issues, patient did have multiple episode of epidural injection that did not help his spondylosis and spinal stenosis of the lumbar spine, and he is asking for CBD medication at this point. 05/24: Patient is sitting up in the recliner chair he still have a very poor appetite, he has not had a bowel movement despite the use of brown bomb along with lactulose 20 g orally 3 times every day along with senna, we will try Dulcolax suppository 10 mg if that does not work we will allow the patient to have a Fleet enema, monitor the patient very closely, patient underwent left heart catheterization today did not have any significant disease we will continue with conservative management for now. 05/25: Patient has no new concerns today. Plan is for subacute rehab with [facility] at the time of discharge. Cardiology has evaluated the patient recommend continuing current medications and cleared for discharge. Blood pressure 153/73, heart rate is in the 50s, sinus rhythm. Pulse ox 98% on room air. No repeat blood work for today. Patient will be discharged to [facility] today once all arrangements are completed. DISCHARGE DIAGNOSES: 1. Paroxysmal atrial fibrillation with rapid ventricular response. 2. Elevated troponin likely due to type II LA due to atrial fibrillation with r apid ventricular response. Left heart catheterization showed mild disease no PCI. 3. ICD discharge due to recurrent ventricular tachycardia/ventricular fibrillation. 4. History of coronary artery disease status post PCI of the proximal and mid RCA back in 2013. 5. Ischemic cardiomyopathy with reduced left ventricular ejection fraction at 25%. 6. Recent Staphylococcus epidermidis urinary tract infection. 7. 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 8. 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 9. Hypertension and hypertensive cardiovascular disease. 10. Mixed hyperlipidemia. 11. Slow transit constipation. 12. Medical debility. Greater than 35 minutes was utilized and coordinating patient's discharge. Impression and plan of care have been directed as dictated by the signing physician. Robyn Lopez nurse practitioner acting as scribe for signing physician. Plan - Discharge Summary Discharge Rx Participant: No New Discharge Prescriptions: New Baclofen [Lioresal] 5 mg PO DAILY PRN tab PRN Reason: Spasms Magnesium Hydroxide [Milk of Magnesia] 2,400 mg PO DAILY PRN ml PRN Reason: Constipation polyethylene glycoL 3350 [Miralax] 17 gm PO DAILY packet Amiodarone [Cordarone] 400 mg PO BID #60 tablet Lactulose [Cephulac] 20 gm PO TID PRN ml PRN Reason: Constipation Apixaban [Eliquis] 5 mg PO BID tab HYDROcodone/APAP 5-325MG [[place] 5-325] 1 each PO Q6H PRN #12 tab PRN Reason: Pain lisinopriL [Zestril] 20 mg PO DAILY tab Continue Spironolactone [Aldactone] 12.5 mg PO DAILY Aspirin [Adult Low Dose Aspirin EC] 81 mg PO DAILY Metoprolol Succinate (ER) [Toprol XL] 75 mg PO HS Acetaminophen Tab [Tylenol] 650 mg PO Q6H PRN PRN Reason: Mild Pain (Scale 1 To 3) Pantoprazole [Protonix] 40 mg PO DAILY Atorvastatin [Lipitor] 80 mg PO HS Nitroglycerin 0.4 mg SL Q5M PRN PRN Reason: Chest Pain Furosemide [Lasix] 40 mg PO DAILY Changed Doxycycline Monohydrate 100 mg PO BID 3 Days #0 Sennosides [Senokot] 8.6 mg PO BID #0 Discontinued Losartan [Cozaar] 50 mg PO BID Discharge Medication List Spironolactone [Aldactone] 12.5 mg PO DAILY 12/03/16 [History] Aspirin [Adult Low Dose Aspirin EC] 81 mg PO DAILY 11/16/17 [History] Atorvastatin [Lipitor] 80 mg PO HS 03/03/21 [History] Nitroglycerin 0.4 mg SL Q5M PRN 09/28/22 [History] Metoprolol Succinate (ER) [Toprol XL] 75 mg PO HS 11/13/22 [History] Acetaminophen Tab [Tylenol] 650 mg PO Q6H PRN 05/22/23 [History] Furosemide [Lasix] 40 mg PO DAILY 05/22/23 [History] Pantoprazole [Protonix] 40 mg PO DAILY 05/22/23 [History] Amiodarone [Cordarone] 400 mg PO BID #60 tablet 05/25/23 [Rx] Apixaban [Eliquis] 5 mg PO BID tab 05/26/23 [Rx] Baclofen [Lioresal] 5 mg PO DAILY PRN tab 05/26/23 [Rx] Doxycycline Monohydrate 100 mg PO BID 3 Days #0 05/26/23 [Rx] HYDROcodone/APAP 5-325MG [[place] 5-325] 1 each PO Q6H PRN #12 tab 05/26/23 [Rx] Lactulose [Cephulac] 20 gm PO TID PRN ml 05/26/23 [Rx] Magnesium Hydroxide [Milk of Magnesia] 2,400 mg PO DAILY PRN ml 05/26/23 [Rx] Sennosides [Senokot] 8.6 mg PO BID #0 05/26/23 [Rx] lisinopriL [Zestril] 20 mg PO DAILY tab 05/26/23 [Rx] polyethylene glycoL 3350 [Miralax] 17 gm PO DAILY packet 05/26/23 [Rx] Follow up Appointment(s)/Referral(s): Oskar Rowland MD [Primary Care Provider] - 1 Week (AT [facility]) Benji Kearns MD [STAFF PHYSICIAN] - 1 Week Discharge Disposition: TRANSFER TO SNF/ECF
== END 2023-05-26 15:42 | DRG 280 ==
LOC: EC 22:39 → 3SCARD 05-22 01:36
PROVIDERS: ADMIT Internal Medicine; ATTEND Internal Medicine
PROC: B2111ZZ Fluoroscopy of Multiple Coronary Arteries using Low Osmolar Contrast (ICD-10-PCS; 2023-05-25)
PROC: 4A023N7 Measurement of Cardiac Sampling and Pressure, Left Heart, Percutaneous Approach (ICD-10-PCS; principal; 2023-05-25 11:00)
DX: I48.0 Paroxysmal atrial fibrillation (principal); I50.21 Acute systolic (congestive) heart failure; I21.A1 Myocardial infarction type 2; I71.00 Dissection of unspecified site of aorta; T82.855A Stenosis of coronary artery stent, initial encounter; E87.1 Hypo-osmolality and hyponatremia; N39.0 Urinary tract infection, site not specified; I49.01 Ventricular fibrillation; I47.20 Ventricular tachycardia, unspecified; I11.0 Hypertensive heart disease with heart failure; I08.1 Rheumatic disorders of both mitral and tricuspid valves; I25.5 Ischemic cardiomyopathy; H35.30 Unspecified macular degeneration; I25.10 Atherosclerotic heart disease of native coronary artery without angina pectoris; E83.42 Hypomagnesemia; M62.58 Muscle wasting and atrophy, not elsewhere classified, other site; E78.2 Mixed hyperlipidemia; H54.8 Legal blindness, as defined in USA; M47.816 Spondylosis without myelopathy or radiculopathy, lumbar region; M48.061 Spinal stenosis, lumbar region without neurogenic claudication; K59.01 Slow transit constipation; R53.81 Other malaise; W07.XXXA Fall from chair, initial encounter; Y71.1 Therapeutic (nonsurgical) and rehabilitative cardiovascular devices associated with adverse incidents; Z96.651 Presence of right artificial knee joint; Y92.009 Unspecified place in unspecified non-institutional (private) residence as the place of occurrence of the external cause; Z91.81 History of falling; Z87.891 Personal history of nicotine dependence; Z95.810 Presence of automatic (implantable) cardiac defibrillator; Z95.1 Presence of aortocoronary bypass graft; Z79.01 Long term (current) use of anticoagulants; I25.2 Old myocardial infarction; Z79.82 Long term (current) use of aspirin; Z79.899 Other long term (current) drug therapy; Z88.8 Allergy status to other drugs, medicaments and biological substances; Z91.040 Latex allergy status
CPT/HCPCS: 36415; 71045; 80048; 80053; 80061; 83735; 83880; 84443; 84484; 85025; 85610; 85730; 93005; 93306; 93454; 94760; 96365; 96366; 96372; 99285

== ENCOUNTER 2023-08-10 13:57 | Inpatient (IN) | payer MEDICARE ==
--- NOTE | 2023-08-10 14:37 | ED ---
Weakness HPI - General Source: patient, RN notes reviewed, Caregiver Mode of arrival: wheelchair Limitations: no limitations - History of Present Illness MD Complaint: generalized weakness <Tiffanie Warren - Last Filed: 08/10/23 16:22> - General Source: patient, Caregiver Mode of arrival: wheelchair Limitations: no limitations <EmmaBernice - Last Filed: 08/10/23 22:53> - General Chief complaint: Weakness Stated complaint: Weakness Time Seen by Provider: 08/10/23 14:04 - History of Present Illness Initial comments: This is an 88-year-old male who presents to the emergency department for weakness. Patient lives at an adult foster care facility. Staff states that over the last several days he has been sleeping all day and not having much to eat. They are concerned about him getting more and more weak. Patient denies any chest pain or shortness of breath. He has not had any fevers/chills. Staff states that he had also been constipated, which they have been giving him medication for and it seemed to help with his bowel movements. He does not have any abdominal pain associated with this. Also denies any nausea or vomiting. (Tiffanie Warren) - Related Data Home Medications Medication Instructions Recorded Confirmed Spironolactone [Aldactone] 12.5 mg PO DAILY@0700 12/03/16 08/10/23 Aspirin [Adult Low Dose Aspirin EC] 81 mg PO DAILY@0700 11/16/17 08/10/23 Atorvastatin [Lipitor] 80 mg PO HS@1900 03/03/21 08/10/23 Nitroglycerin 0.4 mg SL Q5M PRN 09/28/22 08/10/23 Metoprolol Succinate (ER) [Toprol 75 mg PO HS@1900 11/13/22 08/10/23 XL] Acetaminophen Tab [Tylenol] 650 mg PO Q6H PRN 05/22/23 08/10/23 Amiodarone [Cordarone] 100 mg PO DAILY@0700 08/10/23 08/10/23 Apixaban [Eliquis] 5 mg PO BID@0700,1900 08/10/23 08/10/23 Arthritis Pain Relief Roll-On 1 applic TOPICAL DAILY PRN 08/10/23 08/10/23 Cbdigest 1 cap PO HS@1900 25/24 06/25/24 Fluticasone Nasal [place] [Flonase 2 spray EA NOSTRIL DAILY@189908/10/23 08/10/23 Nasal [place]] Furosemide [Lasix] 20 mg PO DAILY@69908/10/23 08/10/23 HYDROcodone/APAP 5-325MG [[place] 1 tab PO BID PRN 08/10/23 08/10/23 5-325] Levocetirizine Dihydrochloride 5 mg PO HS@189908/10/23 08/10/23 [Xyzal] Montelukast Sodium 10 mg PO DAILY@69908/10/23 08/10/23 Omeprazole 40 mg PO AC-BRKFST@69908/10/23 08/10/23 Sennosides [Senokot] 8.6 mg PO BID@0700,189908/10/23 08/10/23 lisinopriL [Zestril] 20 mg PO DAILY@69908/10/23 08/10/23 polyethylene glycoL 3350 [Miralax] 17 gm PO DAILY@69908/10/23 08/10/23 Previous Rx's Medication Instructions Recorded Baclofen [Lioresal] 5 mg PO DAILY PRN tab 05/26/23 Lactulose [Cephulac] 20 gm PO TID PRN ml 05/26/23 Allergies Allergy/AdvReac Type Severity Reaction Status Date / Time amlodipine besylate Allergy Rash/Hives Verified 08/10/23 15:25 [From Norvasc] isosorbide [From Imdur] Allergy Unknown Verified 08/10/23 15:25 Latex, Natural Rubber Allergy Rash/Hives Verified 08/10/23 15:25 Review of Systems ROS Other: All systems not noted in ROS Statement are negative. <Tiffanie Warren - Last Filed: 08/10/23 16:22> ROS Other: All systems not noted in ROS Statement are negative. <Bernice Carter - Last Filed: 08/10/23 22:53> ROS Statement: Those systems with pertinent positive or pertinent negative responses have been documented in the HPI. Past Medical History Past Medical History: Coronary Artery Disease (CAD), Heart Failure, Eye Disorder, GERD/Reflux, GI Bleed, Hyperlipidemia, Hypertension, Myocardial Infarction ([place]), Osteoarthritis (OA), Prostate Disorder, Thyroid Disorder Additional Past Medical History / Comment(s): cardiomyopathy, DENGENERATIVE ARTHRITIS, MACULAR DEGENERATION AND CATARACTS,GI BLEED 2011, fall 11-24-16/facial inj/bruing/broken front teeth,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 , LEGALLY BLIND, FELL AND CUT HIS LT ARM-NO STITCHES NEEDED BUT PUT ON ANTIBIOTICS PREVENTATIVE-STILL HAS BRUISING.-NOTIFIED [facility] IN PAIN CLINIC-SEE NN PLEASE Last Myocardial Infarction Date:: History of Any Multi-Drug Resistant Organisms: None Reported Past Surgical History: Adenoidectomy, AICD, Appendectomy, Cholecystectomy, Heart Catheterization, Heart Catheterization With Stent, Joint Replacement, Orthopedic Surgery, Pacemaker, Tonsillectomy Additional Past Surgical History / Comment(s): AICD, Defrillation Testing 04/02/14, TOTAL LT/RT KNEE ARTHROPLASTY, bilateral CATARACTS, bilateral carpal tunnel releases, PARTIAL THYROIDECTOMY due to nodules, trigger fingers,heart stents x3, PAIN CLINIC PROCEDURES Past Anesthesia/Blood Transfusion Reactions: No Reported Reaction Additional Past Anesthesia/Blood Transfusion Reaction / Comment(s): wakes up during surgery,no hx blood transfusion Date of Last Stent Placement:: Type of Cardiac Device: Biventricular Pacemaker, AICD Device Placement Date:: 12-04-13 [employer] Past Psychological History: No Psychological Hx Reported Smoking Status: Former smoker Past Alcohol Use History: None Reported Past Drug Use History: None Reported - Past Family History Son(s) Family Medical History: No Reported History Father Family Medical History: Cancer, Coronary Artery Disease (CAD), CVA/TIA, Diabetes Mellitus Additional Family Medical History / Comment(s): CAROTID ARTERY BLOCKAGE.SX IN 1988 Mother Family Medical History: Unable to Obtain Additional Family Medical History / Comment(s): AT AGE 89- UNK HX Daughter(s) Family Medical History: Cancer (Patient has 2 adopted daughters and he has been under a lot of stress with his adopted daughter whom her left taking her cars with him.) BROTHER Family Medical History: Cancer Additional Family Medical History / Comment(s): BONE, PANCREATIC <Tiffanie Warren - Last Filed: 08/10/23 16:22> General Exam Limitations: no limitations General appearance: alert, in no apparent distress Head exam: Present: atraumatic, normocephalic, normal inspection Respiratory exam: Present: normal lung sounds bilaterally. Absent: respiratory distress, wheezes, rales, rhonchi, stridor Cardiovascular Exam: Present: regular rate, normal rhythm, normal heart sounds. Absent: systolic murmur, diastolic murmur, rubs, gallop, clicks GI/Abdominal exam: Present: soft, normal bowel sounds. Absent: distended, tenderness, guarding, rebound, rigid Neurological exam: Present: alert, oriented X3, CN II-XII intact Psychiatric exam: Present: normal affect, normal mood Skin exam: Present: warm, dry, intact, normal color. Absent: rash <Tiffanie Warren - Last Filed: 08/10/23 16:22> Course Vital Signs 08/10/23 08/10/23 08/10/23 13:59 15:44 20:27 Temperature 97.6 F Pulse Rate 74 64 72 Respiratory 18 18 18 Rate Blood Pressure 81/52 114/67 105/54 O2 Sat by Pulse 91 L 92 L 98 Oximetry Medical Decision Making - Lab Data Result diagrams: 08/10/23 15:00 08/10/23 15:00 - Radiology Data Radiology results: report reviewed, image reviewed <Tiffanie Warren - Last Filed: 08/10/23 16:22> - Lab Data Result diagrams: 08/10/23 15:00 08/10/23 15:00 - EKG Data -: EKG Interpreted by [facility] - Radiology Data Radiology results: report reviewed, image reviewed <Bernice Carter - Last Filed: 08/10/23 22:53> - Medical Decision Making This is an 88-year-old male who presents to the emergency department for weakness. Was pt. sent in by a medical professional or institution? @ -No Did you speak to anyone other than the patient for history? @ -Caregiver provided the majority of the history while the patient was explaining his symptoms. Did you review nursing and triage notes? @ -Yes, and I agree, it is accurate with regards to the patient's symptoms. Were old charts reviewed? @ -No Differential Diagnosis? @ -Differential Weakness: Hypoglycemia, shock, sepsis, hyponatremia, anemia, infection, [place], ETOH, adverse medicine reaction, overdose, stroke, this is not meant to be an all-inclusive list. EKG interpreted by me (3pts min.)? @ -EKG interpreted by me demonstrating the following: Sinus rhythm. Ventricular rate 66 bpm, WY interval 195 ms, QRS duration 133 ms, QTc 421 ms. X-rays interpreted by me (1pt min.)? @ -Chest x-ray obtained, my interpretation identifies no localized consolidations or infiltrates. KUB x-ray obtained. My interpretation identifies no dilation of large or small bowel loops. CT interpreted by me (1pt min.)? @ -Not obtained U/S interpreted by me (1pt. min.)? @ -Not obtained What testing was considered but not performed? (CT, X-rays, U/S, labs)? Why? @ -None What meds were considered but not given? Why? @ -None Did you discuss the management of the patient with other professionals? @ -No Did you reconcile home meds? @ -No Was smoking cessation discussed for >3mins.? @ -No Was critical care preformed (if so, how long)? @ -No Were there social determinants of health that impacted care today? How? (Homelessness, low income, unemployed, alcoholism, drug addiction, transportation, low edu. Level, literacy, decrease access to med. care, residential, rehab)? @ -No Was there de-escalation of care discussed even if they declined? (Discuss DNR or withdrawal of care, Hospice)? @ -No What co-morbidities impacted this encounter? (DM, HTN, Smoking, COPD, CAD, Cancer, CVA, Hep., AIDS, mental health diagnosis, sleep apnea, morbid obesity)? @ -CAD, CHF, HLD, HTN Was patient admitted / discharged? @ -Lab work demonstrates leukocytosis with white blood cell count of 12.4. Patient also has an NELI with a creatinine of 1.51 and GFR of 41. Patient was hypotensive on arrival with a BP of 81/52. This did improve on its own prior to getting any IV fluids. Chest x-ray demonstrates chronic pulmonary venous congestion without overt failure. KUB x-ray obtained as well given reports of constipation. This revealed an overall nonobstructive process. Case signed out to Tabby Carter PA-C, at shift completion pending UA and disposition. (Tiffanie Warren) Was patient admitted / discharged? Hospital course, mention meds given and route, prescriptions, significant lab abnormalities, going to OR and other pertinent info. @ -Admitted. Patient signed out to me from Tiffanie Warren PA-C, pending UA results and disposition. Patient evaluated at bedside in no signs of acute distress. Urine analysis hemorrhagic with small blood and 7 RBCs. Due to weakness and NELI admission considered. Case discussed with Dr. Rowland who accepts medical admission. Patient will be started on maintenance fluid at 50 cc/h due to history of heart failure. Patient agreeable for admission. Patient admitted in stable condition for further care and treatment. Case discussed with ED attending, Dr. Conroy Undiagnosed new problem with uncertain prognosis? @ -No Drug Therapy requiring intensive monitoring for toxicity (Heparin, Nitro, Insulin, Cardizem)? @ -No Were any procedures done? @ -No Diagnosis/symptom? @ -Weakness/NELI Acute, or Chronic, or Acute on Chronic? @ -Acute Uncomplicated (without systemic symptoms) or Complicated (systemic symptoms)? @ -Complicated Side effects of treatment? @ -No Exacerbation, Progression, or Severe Exacerbation? @ -No Poses a threat to life or bodily function? How? (Chest pain, [place], [place], pneumonia, PE, COPD, DKA, ARF, appy, cholecystitis, CVA, Diverticulitis, Homicidal, Suicidal, threat to staff... and all critical care pts) @ -Low likelihood (Bernice Carter) - Lab Data Lab Results 08/10/23 08/10/23 08/10/23 Range/Units 15:00 15:00 15:00 WBC 12.4 H (3.8-10.6) k/uL RBC 3.67 L (4.30-5.90) m/uL Hgb 11.9 L (13.0-17.5) gm/dL Hct 36.5 L (39.0-53.0) % MCV 99.4 (80.0-100.0) fL MCH 32.5 (25.0-35.0) pg MCHC 32.6 (31.0-37.0) g/dL RDW 13.1 (11.5-15.5) % Plt Count 278 (150-450) k/uL MPV 8.6 Neutrophils % 75 % Lymphocytes % 12 % Monocytes % 6 % Eosinophils % 4 % Basophils % 0 % Neutrophils # 9.3 H (1.3-7.7) k/uL Lymphocytes # 1.5 (1.0-4.8) k/uL Monocytes # 0.7 (0-1.0) k/uL Eosinophils # 0.5 (0-0.7) k/uL Basophils # 0.1 (0-0.2) k/uL PT 12.7 H (10.0-12.5) sec INR 1.2 H (<1.2) APTT 29.4 (22.0-30.0) sec Sodium 133 L (137-145) mmol/L Potassium 4.8 (3.5-5.1) mmol/L Chloride 102 (98-107) mmol/L Carbon Dioxide 24 (22-30) mmol/L Anion Gap 7 mmol/L BUN 38 H (9-20) mg/dL Creatinine 1.51 H (0.66-1.25) mg/dL Est GFR (CKD-EPI)AfAm 47 (>60 ml/min/1.73 sqM) Est GFR (CKD-EPI)NonAf 41 (>60 ml/min/1.73 sqM) Glucose 114 H (74-99) mg/dL Plasma Lactic Acid Izaiah (0.7-2.0) mmol/L Calcium 9.0 (8.4-10.2) mg/dL Phosphorus 3.7 (2.5-4.5) mg/dL Magnesium 2.1 (1.6-2.3) mg/dL Total Bilirubin 0.9 (0.2-1.3) mg/dL AST 19 (17-59) U/L ALT 10 (4-49) U/L Alkaline Phosphatase 95 (38-126) U/L Troponin I (0.000-0.034) ng/mL NT-Pro-B Natriuret Pep 886 pg/mL Total Protein 5.8 L (6.3-8.2) g/dL Albumin 3.0 L (3.5-5.0) g/dL Urine Color Urine Appearance (Clear) Urine pH (5.0-8.0) Ur Specific Outlook (1.001-1.035) Urine Protein (Negative) Urine Glucose (UA) (Negative) Urine Ketones (Negative) Urine Blood (Negative) Urine Nitrite (Negative) Urine Bilirubin (Negative) Urine Urobilinogen (<2.0) mg/dL Ur Leukocyte Esterase (Negative) Urine RBC (0-5) /hpf Urine WBC (0-5) /hpf Hyaline Casts (0-2) /lpf Urine Mucus (None) /hpf Influenza Type A (PCR) (Not Detectd) Influenza Type B (PCR) (Not Detectd) RSV (PCR) (Not Detectd) SARS-CoV-2 (PCR) (Not Detectd) 08/10/23 08/10/23 08/10/23 Range/Units 15:00 15:00 15:43 WBC (3.8-10.6) k/uL RBC (4.30-5.90) m/uL Hgb (13.0-17.5) gm/dL Hct (39.0-53.0) % MCV (80.0-100.0) fL MCH (25.0-35.0) pg MCHC (31.0-37.0) g/dL RDW (11.5-15.5) % Plt Count (150-450) k/uL MPV Neutrophils % % Lymphocytes % % Monocytes % % Eosinophils % % Basophils % % Neutrophils # (1.3-7.7) k/uL Lymphocytes # (1.0-4.8) k/uL Monocytes # (0-1.0) k/uL Eosinophils # (0-0.7) k/uL Basophils # (0-0.2) k/uL PT (10.0-12.5) sec INR (<1.2) APTT (22.0-30.0) sec Sodium (137-145) mmol/L Potassium (3.5-5.1) mmol/L Chloride (98-107) mmol/L Carbon Dioxide (22-30) mmol/L Anion Gap mmol/L BUN (9-20) mg/dL Creatinine (0.66-1.25) mg/dL Est GFR (CKD-EPI)AfAm (>60 ml/min/1.73 sqM) Est GFR (CKD-EPI)NonAf (>60 ml/min/1.73 sqM) Glucose (74-99) mg/dL Plasma Lactic Acid Izaiah 1.1 (0.7-2.0) mmol/L Calcium (8.4-10.2) mg/dL Phosphorus (2.5-4.5) mg/dL Magnesium (1.6-2.3) mg/dL Total Bilirubin (0.2-1.3) mg/dL AST (17-59) U/L ALT (4-49) U/L Alkaline Phosphatase (38-126) U/L Troponin I <0.012 (0.000-0.034) ng/mL NT-Pro-B Natriuret Pep pg/mL Total Protein (6.3-8.2) g/dL Albumin (3.5-5.0) g/dL Urine Color Yellow Urine Appearance Clear (Clear) Urine pH 5.5 (5.0-8.0) Ur Specific Outlook 1.017 (1.001-1.035) Urine Protein Negative (Negative) Urine Glucose (UA) Negative (Negative) Urine Ketones Negative (Negative) Urine Blood Small H (Negative) Urine Nitrite Negative (Negative) Urine Bilirubin Negative (Negative) Urine Urobilinogen 3.0 (<2.0) mg/dL Ur Leukocyte Esterase Negative (Negative) Urine RBC 7 H (0-5) /hpf Urine WBC 1 (0-5) /hpf Hyaline Casts 22 H (0-2) /lpf Urine Mucus Rare H (None) /hpf Influenza Type A (PCR) (Not Detectd) Influenza Type B (PCR) (Not Detectd) RSV (PCR) (Not Detectd) SARS-CoV-2 (PCR) (Not Detectd) 08/10/23 Range/Units 15:43 WBC (3.8-10.6) k/uL RBC (4.30-5.90) m/uL Hgb (13.0-17.5) gm/dL Hct (39.0-53.0) % MCV (80.0-100.0) fL MCH (25.0-35.0) pg MCHC (31.0-37.0) g/dL RDW (11.5-15.5) % Plt Count (150-450) k/uL MPV Neutrophils % % Lymphocytes % % Monocytes % % Eosinophils % % Basophils % % Neutrophils # (1.3-7.7) k/uL Lymphocytes # (1.0-4.8) k/uL Monocytes # (0-1.0) k/uL Eosinophils # (0-0.7) k/uL Basophils # (0-0.2) k/uL PT (10.0-12.5) sec INR (<1.2) APTT (22.0-30.0) sec Sodium (137-145) mmol/L Potassium (3.5-5.1) mmol/L Chloride (98-107) mmol/L Carbon Dioxide (22-30) mmol/L Anion Gap mmol/L BUN (9-20) mg/dL Creatinine (0.66-1.25) mg/dL Est GFR (CKD-EPI)AfAm (>60 ml/min/1.73 sqM) Est GFR (CKD-EPI)NonAf (>60 ml/min/1.73 sqM) Glucose (74-99) mg/dL Plasma Lactic Acid Izaiah (0.7-2.0) mmol/L Calcium (8.4-10.2) mg/dL Phosphorus (2.5-4.5) mg/dL Magnesium (1.6-2.3) mg/dL Total Bilirubin (0.2-1.3) mg/dL AST (17-59) U/L ALT (4-49) U/L Alkaline Phosphatase (38-126) U/L Troponin I (0.000-0.034) ng/mL NT-Pro-B Natriuret Pep pg/mL Total Protein (6.3-8.2) g/dL Albumin (3.5-5.0) g/dL Urine Color Urine Appearance (Clear) Urine pH (5.0-8.0) Ur Specific Outlook (1.001-1.035) Urine Protein (Negative) Urine Glucose (UA) (Negative) Urine Ketones (Negative) Urine Blood (Negative) Urine Nitrite (Negative) Urine Bilirubin (Negative) Urine Urobilinogen (<2.0) mg/dL Ur Leukocyte Esterase (Negative) Urine RBC (0-5) /hpf Urine WBC (0-5) /hpf Hyaline Casts (0-2) /lpf Urine Mucus (None) /hpf Influenza Type A (PCR) Not Detected (Not Detectd) Influenza Type B (PCR) Not Detected (Not Detectd) RSV (PCR) Not Detected (Not Detectd) SARS-CoV-2 (PCR) Not Detected (Not Detectd) - EKG Data EKG Comments: EKG taken at 14: 39 showing a sinus rhythm with no acute ST segment or T wave abnormalities. Ventricular rate 66, WY interval 195, QRS duration 133, QT/QTc 408/421. (Bernice Carter) Disposition <Tiffanie Warren - Last Filed: 08/10/23 16:22> Time of Disposition: 18:57 <Bernice Carter - Last Filed: 08/10/23 22:53> Clinical Impression: NELI (acute kidney injury), Weakness Disposition: ADMITTED IP TO THIS HOSP Condition: Stable
--- NOTE | 2023-08-10 15:09 | XR ---
EXAMINATION TYPE: XR chest 2V DATE OF EXAM: 08/10/2023 COMPARISON: 05/21/2023 HISTORY: Shortness of breath TECHNIQUE: Frontal and lateral views of the chest are obtained. FINDINGS: Scattered senescent parenchymal changes noted. Hyperinflation compatible with COPD. No evidence for infiltrate. No evidence for atelectasis. Heart size is stable. Chronic pulmonary venous congestion without overt failure. Mediastinal structures are stable and grossly unremarkable. No evidence for hilar prominence. Degenerative changes dorsal spine. IMPRESSION: 1. Chronic pulmonary venous congestion without overt failure.
--- NOTE | 2023-08-10 15:10 | XR ---
EXAMINATION TYPE: XR KUB DATE OF EXAM: 08/10/2023 COMPARISON: NONE HISTORY: Pain TECHNIQUE: Single supine KUB image of the abdomen is obtained FINDINGS: Small bowel demonstrates no evidence for dilatation or air fluid levels. Gas and fecal material is seen in non-distended colon. No convincing evidence for pneumoperitoneum. No unusual calcifications. The lung bases are clear. The osseous structures are intact. IMPRESSION: 1. Overall nonobstructive bowel gas pattern.
[2023-08-10 15:17] LABS: Basophils # (A) 0.1 k/uL (0-0.2); Basophils % (A) 0 %; Eosinophils # (A) 0.5 k/uL (0-0.7); Eosinophils % (A) 4 %; HCT 36.5 % (39.0-53.0); HGB 11.9 gm/dL (13.0-17.5); Lymphocytes # (A) 1.5 k/uL (1.0-4.8); Lymphocytes % (A) 12 %; MCH 32.5 pg (25.0-35.0); MCHC 32.6 g/dL (31.0-37.0); MCV 99.4 fL (80.0-100.0); Mean Platelet Volume 8.6; Monocytes # (A) 0.7 k/uL (0-1.0); Monocytes % (A) 6 %; Neutrophils # (A) 9.3 k/uL (1.3-7.7); Neutrophils % (A) 75 %; Platelet Count 278 k/uL (150-450); RBC 3.67 m/uL (4.30-5.90); RDW 13.1 % (11.5-15.5); WBC 12.4 k/uL (3.8-10.6)
[2023-08-10 15:24] LABS: INR 1.2 (<1.2); Partial Thromboplastin Time 29.4 sec (22.0-30.0); Prothrombin Time 12.7 sec (10.0-12.5)
[2023-08-10 15:26] LABS: ALT 10 U/L (4-49); AST 19 U/L (17-59); African American GFR (CKD) 47 (>60 ml/min/1.73 sqM); Alkaline Phosphatase 95 U/L (38-126); Anion Gap 7 mmol/L; Blood Urea Nitrogen 38 mg/dL (9-20); Carbon Dioxide 24 mmol/L (22-30); Chloride 102 mmol/L (98-107); Glucose 114 mg/dL (74-99); Magnesium 2.1 mg/dL (1.6-2.3); Non-African American GFR(CKD) 41 (>60 ml/min/1.73 sqM); Phosphorus 3.7 mg/dL (2.5-4.5); Potassium 4.8 mmol/L (3.5-5.1); Sodium 133 mmol/L (137-145); Total Bilirubin 0.9 mg/dL (0.2-1.3); Total Protein 5.8 g/dL (6.3-8.2)
[2023-08-10 15:34] LABS: NT-Pro-B-Type Natriuretic Pept 886 pg/mL
[2023-08-10] MEDS: SODIUM CHLORIDE 0.9% 1,000 ML IV STA (17:24)
[2023-08-10 18:30] LABS: Appearance,Urine Clear (Clear); Bilirubin,Urine Negative (Negative); Blood,Urine Small (Negative); Color,Urine Yellow; Glucose,Urine (UA) Negative (Negative); Hyaline Casts,Urine 22 /lpf (0-2); Ketones,Urine Negative (Negative); Leukocyte Esterase,Urine Negative (Negative); Mucus,Urine Rare /hpf; Nitrite,Urine Negative (Negative); PH, Urine 5.5 (5.0-8.0); Protein,Urine Negative (Negative); RBC,Urine 7 /hpf (0-5); Specific Gravity,Urine 1.017 (1.001-1.035); WBC,Urine 1 /hpf (0-5)
[2023-08-10] MEDS ORDERED: NALOXONE 0.4 MG/ML 1 ML VIAL IV PRN (18:54)
[2023-08-10] MEDS ORDERED: ACETAMINOPHEN TAB 325 MG TAB PO PRN (18:55)
[2023-08-10] MEDS: SODIUM CHLORIDE 0.9% 1,000 ML IV SCH (20:26)
[2023-08-10] MEDS: ACETAMINOPHEN TAB 325 MG TAB PO STA (20:27)
[2023-08-10] MEDS ORDERED: NITROGLYCERIN SL TABS 0.4 MG TAB SUBLINGUAL PRN (22:21)
[2023-08-10] MEDS ORDERED: [UNRECOGNIZED DRUG - OTHER] TOPICAL PRN (22:21)
[2023-08-10] MEDS ORDERED: LACTULOSE 20 GM/30 ML CUP PO PRN (22:21)
[2023-08-10] MEDS: HYDROcodone/APAP 5-325MG 1 EACH TAB PO PRN (23:00)
[2023-08-11] MEDS: PANTOPRAZOLE 40 MG TABLET PO SCH (06:26)
[2023-08-11] MEDS: SENNOSIDES 8.6 MG TAB PO SCH (06:26)
[2023-08-11] MEDS: lisinopriL 20 MG TAB PO SCH (06:26)
[2023-08-11] MEDS: APIXABAN 5 MG TAB PO SCH (06:26)
[2023-08-11] MEDS: AMIODARONE 100 MG TAB PO SCH (06:27)
[2023-08-11] MEDS: polyethylene glycoL 3350 17 GM POWD.PACK PO SCH (06:27)
[2023-08-11] MEDS: MONTELUKAST 10 MG TAB PO SCH (06:27)
[2023-08-11] MEDS: ASPIRIN 81 MG PO SCH (06:27)
[2023-08-11 10:28] LABS: Basophils # (A) 0.07 X 10*3/uL (0.00-0.10); Basophils % (A) 0.9 %; Eosinophils # (A) 0.44 X 10*3/uL (0.04-0.35); Eosinophils % (A) 5.5 %; HCT 33.8 % (39.6-50.0); HGB 11.2 g/dL (13.0-17.0); Lymphocytes # (A) 1.45 X 10*3/uL (0.90-5.00); MCH 32.6 pg (27.0-32.0); MCHC 33.1 g/dL (32.0-37.0); MCV 98.3 FL (80.0-97.0); Mean Platelet Volume 10.5 FL (9.5-12.2); Monocytes # (A) 0.69 X 10*3/uL (0.20-1.00); Monocytes % (A) 8.6 %; NRBC Per 100 WBC 0 X 10*3/uL (0.00-0.01); Neutrophils # (A) 5.34 X 10*3/uL (1.80-7.70); Neutrophils % (A) 66.4 %; Platelet Count 259 X 10*3/uL (140-440); RBC 3.44 X 10*6/uL (4.40-5.60); RDW 13.2 % (11.5-14.5); WBC 8.04 X 10*3/uL (4.50-10.00)
[2023-08-11 10:38] LABS: ALT 8 U/L (10-49); AST 14 U/L (14-35); Albumin 2.9 g/dL (3.8-4.9); Albumin/Globulin Ratio 1.26 Ratio (1.60-3.17); Alkaline Phosphatase 93 U/L (41-126); BUN/Creat Ratio 23.36 Ratio (12.00-20.00); Blood Urea Nitrogen 25.7 mg/dL (9.0-27.0); Calcium 8.5 mg/dL (8.7-10.3); Carbon Dioxide 23.2 mmol/L (21.6-31.8); Chloride 103 mmol/L (96-109); Globulin 2.3 g/dL (1.6-3.3); Glucose 92 mg/dL (70-110); Magnesium 1.9 mg/dL (1.5-2.4); Potassium 4.8 mmol/L (3.5-5.5); Sodium 135 mmol/L (135-145); Total Bilirubin 0.9 mg/dL (0.3-1.2); Total Protein 5.2 g/dL (6.2-8.2)
[2023-08-11] MEDS: ONDANSETRON 4 MG/2 ML VIAL IVP PRN (14:23)
[2023-08-11] MEDS: ATORVASTATIN 80 MG TAB PO SCH (18:37)
[2023-08-11] MEDS: FLUTICASONE NASAL 50MCG/SPRAY 16GM BTL EA NOSTRIL SCH (18:37)
[2023-08-11] MEDS: LORATADINE 10 MG TAB PO SCH (18:38)
[2023-08-11] MEDS: METOPROLOL SUCCINATE (ER) 25 MG TAB.ER.24H PO SCH (18:38)
[2023-08-11] MEDS ORDERED: [UNRECOGNIZED DRUG - OTHER] PO SCH (19:00)
[2023-08-11] MEDS ORDERED: FLUTICASONE NASAL 50MCG/SPRAY 16GM BTL EA NOSTRIL SCH (19:00)
[2023-08-11] MEDS: TRIAMCINOLONE ACET 0.1% OINTMENT 80 GM TUBE TOPICAL SCH (20:01)
[2023-08-11] MEDS: NYSTATIN 100,000 UNIT/GM OINT 30 GM TUBE TOPICAL SCH (20:02)
--- NOTE | 2023-08-12 09:12 | P.HPIM ---
History of Present Illness H&P Date: 08/11/23 Chief Complaint: Acute kidney injury HISTORY OF PRESENT ILLNESS: This is an 88-year-old male with a previous medical history significant for hypertension and hypertensive cardio vascular disease, hyperlipidemia, paroxysmal atrial fibrillation, coronary artery disease with ischemic cardiomyopathy, enlarged prostate, history of AICD, patient presented to the emergency department at [facility] yesterday because of increased fatigue and generalized weakness, not able to eat and drink much, he was found to have a minimal acute kidney injury due to poor oral intake of fluid, patient was evaluated in the emergency department, he was started on IV fluid resuscitation in the form of normal saline at 50 cc an hour, he was admitted to the hospital for further evaluation and recommendation, patient did have a Albright catheter placed and an ended up having hematuria secondary to that, he was able to urinate very well, however we will continue to monitor the patient hematuria very closely, if is not better we will ask for urology consultation. REVIEW OF SYSTEMS: Constitutional: No documented fever, no chills, no night sweats. No weight change. Positive for weakness, fatigue no lethargy. No daytime sleepiness. HEENT: Positive for headache. Positive blurred vision or double vision, no loss of vision. Positive for loss of Hearing, no ringing in the ears, no dizziness. Positive for nasal crust or congestion. No epistaxis. No sore throat. Lungs: No shortness of breath, no cough, no sputum production. No wheezing. Reports dyspnea with activity. Cardiovascular: No chest pain, no lower extremity edema. No palpitations. No paroxysmal nocturnal dyspnea. No orthopnea. No lightheadedness or dizziness. No syncopal episodes. Abdominal: Reports abdominal pain. No nausea, vomiting. No diarrhea. positive for constipation. No bloody or tarry stools reports loss of appetite. Genitourinary: No dysuria, increased frequency, urgency. No urinary retention. Positive for hematuria. Musculoskeletal: No myalgias. Positive for muscle weakness, no gait dysfunction, no frequent falls. No back pain. No neck pain. Integumentary: no skin rash Neurologic: No aphasia. No facial droop. No change in mentation. No head injury. No headache. No paralysis. No paresthesia. Psychiatric: No depression. No anxiety. No mood swings. Endocrine: No abnormal blood sugars. No weight change. PAST MEDICAL HISTORY: hypertension and hypertensive cardiovascular disease. Hyperlipidemia. Paroxysmal atrial fibrillation. Ischemic cardiopathy. Enlarged prostate with lower urinary tract symptoms. ALLERGIC rhinitis Coronary artery disease. Hard of hearing. Gait dysfunction. Amiodarone-induced thyrotoxicosis. PAST SURGICAL HISTORY: arthroscopic knee surgery. Appendectomy. Tonsillectomy and adenoidectomy. Cholecystectomy. Carpal tunnel surgery. Bilateral cataract surgery. Left heart catheterization with PCI. AICD 2013. Bilateral total knee arthroplasties. Partial thyroidectomy. SOCIAL HISTORY: patient uses followed by a pack every day from [id number], he currently lives in senior citizen apartment, he denies any alcohol ingestion, no drug use or abuse, uses a walker for ambulation FAMILY HISTORY: father at age of 90 after carotid endarterectomy, also had a history of CAD CVA and diabetes along with cancer mother at age of 89 from unknown reason patient had one brother who from pancreatic cancer with metastatic disease to the bone patient has one son who is alive and well and one daughter with adopted granddaughter. PHYSICAL EXAMINATION: General: this is an 88-year-old male who is sitting up in bed in no distress HEENT: Head is atraumatic, normocephalic, pupils were equal round reactive to light and recommendation, extraocular muscle movement were intact, sclera nonicteric, conjunctivae were pale, mucous membranes of the mouth are somewhat dry. Neck: Supple, no JVP, normal carotid upstroke bilaterally, no lymphadenopathy. Chest: Decreased breath sounds at the bases, few rhonchi, no extremity wheezes, no chest wall tenderness, no intercostal retractions. Heart: First heart sound is normal, second heart sound is normal there is systolic ejection murmur 2/6 located in the left sternal border, there is AICD in the left upper precordium. Abdomen: Soft, nontender, nondistended, positive bowel sounds. there is no hepatosplenomegaly. Extremities: There is no edema no calf tenderness DP +2 bilaterally. Neurologic examination: Patient is awake alert and oriented X 3, cranial nerves II-12 appear grossly intact, muscle power were 4 out of 5 in upper extremities and 4 out of 5 in bilateral lower extremities, deep tendon reflexes normal bilaterally. ASSESSMENT AND PLAN: 1. Acute kidney injury due to poor oral intake of fluid due to acute tubular necrosis and possible vasomotor nephropathy. Start the patient on IV fluid resuscitation in the form of normal saline at 50 cc an hour, monitor the patient input and output and daily weight, monitor the patient very closely patient does have an underlying ischemic cardiomyopathy with a defibrillator in place, I will monitor the patient CBC and CMP over the next 24 hours. 2. Traumatic hematuria likely due to Albright catheterization. Monitor the patient CBC and CMP, hold aspirin and Eliquis in the next 24 hours, if the p atient hematuria is not better consult urology. 3. Hypertension and hypertensive cardiovascular disease. Continue patient on lisinopril 20 mg orally twice every day, increase Toprol XL 75 mg orally once every day monitor the patient blood pressure very closely. 4. Hyperlipidemia. Continue patient on atorvastatin 80 mg orally once every day. 5. CAD post-PCI with ischemic cardiomyopathy. Continue aspirin 81 mg once every day, metoprolol orally once every day, atorvastatin 80 mg orally once every day. 6. ALLERGIC rhinitis. Continue patient on loratadine 10 mg orally once every day. 7. GERD. Continue omeprazole 40 mg orally once every day as well as famotidine 40 mg at bedtime. 8. Constipation. Start the patient on lactulose 20 g orally twice every day, continue Senokot-s 2 tablet orally bedtime may use MiraLAX 17 g in 8 ounces water as needed. 9. Enlarged prostate. Continue tamsulosin 0.4 g orally once every day. 10. Paroxysmal atrial fibrillation. Continue patient on Eliquis 5 mg orally twice every day, continue patient on metoprolol ER 75 mg at bedtime. 11. 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 Continue patient on amiodarone 100 mg orally once every day continue metoprolol ER 75 mg at bedtime, patient is following with cardiology on a regular basis. 12. DVT prophylaxis. Continue Eliquis 5 mg orally twice every day. 13. GI prophylaxis. Continue PPI. 14. Generalized weakness with balance disorder. Physical therapy evaluation. 15. Admit to inpatient. Estimate a length of stay 2 midnights. 16 Full code. Past Medical History Past Medical History: Coronary Artery Disease (CAD), Heart Failure, Eye Disorder, GERD/Reflux, GI Bleed, Hyperlipidemia, Hypertension, Myocardial Infarction (IA), Osteoarthritis (OA), Prostate Disorder, Thyroid Disorder Additional Past Medical History / Comment(s): cardiomyopathy, DENGENERATIVE ARTHRITIS, MACULAR DEGENERATION AND CATARACTS,GI BLEED 2011, fall 11-24-16/facial inj/bruing/broken front teeth,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 , LEGALLY BLIND, FELL AND CUT HIS LT ARM-NO STITCHES NEEDED BUT PUT ON ANTIBIOTICS PREVENTATIVE-STILL HAS BRUISING.-NOTIFIED [place] IN PAIN CLINIC-SEE NN PLEASE Last Myocardial Infarction Date:: History of Any Multi-Drug Resistant Organisms: None Reported Past Surgical History: Adenoidectomy, AICD, Appendectomy, Cholecystectomy, Heart Catheterization, Heart Catheterization With Stent, Joint Replacement, Orthopedic Surgery, Pacemaker, Tonsillectomy Additional Past Surgical History / Comment(s): AICD, Defrillation Testing 04/02/14, TOTAL LT/RT KNEE ARTHROPLASTY, bilateral CATARACTS, bilateral carpal tunnel releases, PARTIAL THYROIDECTOMY due to nodules, trigger fingers,heart stents x3, PAIN CLINIC PROCEDURES Past Anesthesia/Blood Transfusion Reactions: No Reported Reaction Additional Past Anesthesia/Blood Transfusion Reaction / Comment(s): wakes up during surgery,no hx blood transfusion Date of Last Stent Placement:: Type of Cardiac Device: Biventricular Pacemaker, AICD Device Placement Date:: 12-04-13 [employer] Past Psychological History: No Psychological Hx Reported Additional Psychological History / Comment(s): He uses a walker at home. He no longer drives, Smoking Status: Former smoker Past Alcohol Use History: None Reported Additional Past Alcohol Use History / Comment(s): started smoking 1953, quit 1973 smoked 1 ppd. Past Drug Use History: None Reported - Past Family History Son(s) Family Medical History: No Reported History Father Family Medical History: Cancer, Coronary Artery Disease (CAD), CVA/TIA, Diabetes Mellitus Additional Family Medical History / Comment(s): CAROTID ARTERY BLOCKAGE.SX IN 1988 Mother Family Medical History: Unable to Obtain Additional Family Medical History / Comment(s): AT AGE 89- UNK HX Daughter(s) Family Medical History: Cancer (Patient has 2 adopted daughters and he has been under a lot of stress with his adopted daughter whom her left taking her cars with him.) BROTHER Family Medical History: Cancer Additional Family Medical History / Comment(s): BONE, PANCREATIC Medications and Allergies Home Medications Medication Instructions Recorded Confirmed Type Spironolactone [Aldactone] 12.5 mg PO DAILY@0700 12/03/16 08/10/23 History Aspirin [Adult Low Dose Aspirin EC] 81 mg PO DAILY@0700 11/16/17 08/10/23 History Atorvastatin [Lipitor] 80 mg PO HS@19003/03/21 08/10/23 History Nitroglycerin 0.4 mg SL Q5M PRN 09/28/22 08/10/23 History Metoprolol Succinate (ER) [Toprol 75 mg PO HS@189911/13/22 08/10/23 History XL] Acetaminophen Tab [Tylenol] 650 mg PO Q6H PRN 05/22/23 08/10/23 History Baclofen [Lioresal] 5 mg PO DAILY PRN tab 05/26/23 08/10/23 Rx Lactulose [Cephulac] 20 gm PO TID PRN ml 05/26/23 08/10/23 Rx Amiodarone [Cordarone] 100 mg PO DAILY@69908/10/23 08/10/23 History Apixaban [Eliquis] 5 mg PO BID@0700,189908/10/23 08/10/23 History Arthritis Pain Relief Roll-On 1 applic TOPICAL DAILY PRN 08/10/23 08/10/23 History Cbdigest 1 cap PO HS@189908/10/23 08/10/23 History Fluticasone Nasal [place] [Flonase 2 spray EA NOSTRIL DAILY@189908/10/23 08/10/23 History Nasal [place]] Furosemide [Lasix] 20 mg PO DAILY@69908/10/23 08/10/23 History HYDROcodone/APAP 5-325MG [[place] 1 tab PO BID PRN 08/10/23 08/10/23 History 5-325] Levocetirizine Dihydrochloride 5 mg PO HS@189908/10/23 08/10/23 History [Xyzal] Montelukast Sodium 10 mg PO DAILY@69908/10/23 08/10/23 History Omeprazole 40 mg PO AC-BRKFST@69908/10/23 08/10/23 History Sennosides [Senokot] 8.6 mg PO BID@0700,189908/10/23 08/10/23 History lisinopriL [Zestril] 20 mg PO DAILY@0700 08/10/23 08/10/23 History polyethylene glycoL 3350 [Miralax] 17 gm PO DAILY@0700 08/10/23 08/10/23 History Allergies Allergy/AdvReac Type Severity Reaction Status Date / Time amlodipine besylate Allergy Rash/Hives Verified 08/10/23 15:25 [From Norvasc] isosorbide [From Imdur] Allergy Unknown Verified 08/10/23 15:25 Latex, Natural Rubber Allergy Rash/Hives Verified 08/10/23 15:25 Physical Exam Vitals: Vital Signs Temp Pulse Resp BP Pulse Ox 08/12/23 07:14 98.5 F 68 18 134/65 93 L 08/12/23 02:00 98.7 F 77 20 128/75 93 L 08/11/23 19:40 99.1 F 86 18 114/69 96 08/11/23 18:58 89 124/70 08/11/23 12:05 98.4 F 83 17 133/73 91 L Intake and Output 08/11/23 08/12/23 08/12/23 22:59 06:59 14:59 Intake Total 600 Output Total 1100 600 Balance -1100 0 Intake: Intake, IV Titration 600 Amount Sodium Chloride 0.9% 1, 600 000 ml @ 50 mls/hr IV . Q20H COUNTS INCLUDE 234 BEDS AT THE [facility] Rx#:[id number] Output: Urine 1100 600 Other: Voiding Method Toilet Urinal Results CBC & Chem 7: 08/11/23 07:07 08/11/23 07:07 Labs: Abnormal Lab Results - Last 24 Hours (Table) 08/11/23 08/11/23 Range/Units 07:07 07:07 RBC 3.44 L (4.40-5.60) X 10*6/uL Hgb 11.2 L (13.0-17.0) g/dL Hct 33.8 L (39.6-50.0) % MCV 98.3 H (80.0-97.0) FL MCH 32.6 H (27.0-32.0) pg Immature Gran # 0.05 H (0.00-0.04) X 10*3/uL Eosinophils # 0.44 H (0.04-0.35) X 10*3/uL BUN/Creatinine Ratio 23.36 H (12.00-20.00) Ratio Calcium 8.5 L (8.7-10.3) mg/dL ALT 8 L (10-49) U/L Total Protein 5.2 L (6.2-8.2) g/dL Albumin 2.9 L (3.8-4.9) g/dL Albumin/Globulin Ratio 1.26 L (1.60-3.17) Ratio Thrombosis Risk Factor Assmnt - Choose All That Apply Any of the Below Risk Factors Present?: Yes Each Factor Represents 1 point: Obesity (BMI >25) Other Risk Factors: Yes Each Risk Factor Represents 3 Points: Age 75 years or older Other congenital or acquired thrombophilia - If yes, enter type in comment: No Thrombosis Risk Factor Assessment Total Risk Factor Score: 4 Thrombosis Risk Factor Assessment Level: Moderate Risk
[2023-08-12 11:05] LABS: Basophils # (A) 0.1 k/uL (0-0.2); Basophils % (A) 1 %; Eosinophils # (A) 0.3 k/uL (0-0.7); Eosinophils % (A) 3 %; HCT 34.5 % (39.0-53.0); HGB 11.3 gm/dL (13.0-17.5); Lymphocytes % (A) 10 %; MCH 32.7 pg (25.0-35.0); MCHC 32.6 g/dL (31.0-37.0); MCV 100.3 fL (80.0-100.0); Mean Platelet Volume 8.3; Monocytes # (A) 0.6 k/uL (0-1.0); Monocytes % (A) 7 %; Neutrophils # (A) 7.4 k/uL (1.3-7.7); Neutrophils % (A) 77 %; Platelet Count 285 k/uL (150-450); RBC 3.44 m/uL (4.30-5.90); RDW 12.9 % (11.5-15.5); WBC 9.7 k/uL (3.8-10.6)
[2023-08-12 11:47] LABS: ALT 10 U/L (4-49); AST 17 U/L (17-59); African American GFR (CKD) >90 (>60 ml/min/1.73 sqM); Albumin 2.5 g/dL (3.5-5.0); Albumin/Globulin Ratio 0.9; Alkaline Phosphatase 91 U/L (38-126); Anion Gap 3 mmol/L; Blood Urea Nitrogen 17 mg/dL (9-20); Calcium 8.6 mg/dL (8.4-10.2); Carbon Dioxide 22 mmol/L (22-30); Chloride 107 mmol/L (98-107); Globulin 2.7 g/dL; Glucose 109 mg/dL (74-99); Non-African American GFR(CKD) 81 (>60 ml/min/1.73 sqM); Potassium 4.7 mmol/L (3.5-5.1); Sodium 132 mmol/L (137-145); Total Bilirubin 1.2 mg/dL (0.2-1.3); Total Protein 5.2 g/dL (6.3-8.2)
--- NOTE | 2023-08-12 18:35 | P.PN ---
Subjective Progress Note Date: 08/12/23 HISTORY OF PRESENT ILLNESS: This is an 88-year-old male with a previous medical history signifi cant for hypertension and hypertensive cardio vascular disease, hyperlipidemia, paroxysmal atrial fibrillation, coronary artery disease with ischemic cardiomyopathy, enlarged prostate, history of AICD, patient presented to the emergency department at [facility] yesterday because of increased fatigue and generalized weakness, not able to eat and drink much, he was found to have a minimal acute kidney injury due to poor oral intake of fluid, patient was evaluated in the emergency department, he was started on IV fluid resuscitation in the form of normal saline at 50 cc an hour, he was admitted to the hospital for further evaluation and recommendation, patient did have a Albright catheter placed and an ended up having hematuria secondary to that, he was able to urinate very well, however we will continue to monitor the patient hematuria very closely, if is not better we will ask for urology consultation. 08/11: Patient is sitting up in bed in no apparent distress, he continues to be very hard of hearing, he is using his hearing aids, he continues to have hematuria, I held his aspirin and Eliquis, ask for urology consultation from Dr. Claire, monitor the patient CBC over the next 24 hours, hemoglobin so far is not dropping quite a bit, increase oral intake of fluid, discontinue IV fluid at this time, restart the patient back on his IV diuretics in the next 24 hours. Patient does not appear to be in acute distress at this point in time. REVIEW OF SYSTEMS: Constitutional: No documented fever, no chills, no night sweats. No weight change. Positive for weakness, fatigue no lethargy. No daytime sleepiness. HEENT: Positive for headache. Positive blurred vision or double vision, no loss of vision. Positive for loss of Hearing, no ringing in the ears, no dizziness. Positive for nasal crust or congestion. No epistaxis. No sore throat. Lungs: No shortness of breath, no cough, no sputum production. No wheezing. Reports dyspnea with activity. Cardiovascular: No chest pain, no lower extremity edema. No palpitations. No paroxysmal nocturnal dyspnea. No orthopnea. No lightheadedness or dizziness. No syncopal episodes. Abdominal: Reports abdominal pain. No nausea, vomiting. No diarrhea. positive for constipation. No bloody or tarry stools reports loss of appetite. Genitourinary: No dysuria, increased frequency, urgency. No urinary retention. Positive for hematuria. Musculoskeletal: No myalgias. Positive for muscle weakness, no gait dysfunct ion, no frequent falls. No back pain. No neck pain. Integumentary: no skin rash Neurologic: No aphasia. No facial droop. No change in mentation. No head injury. No headache. No paralysis. No paresthesia. Psychiatric: No depression. No anxiety. No mood swings. Endocrine: No abnormal blood sugars. No weight change. PHYSICAL EXAMINATION: General: this is an 88-year-old male who is sitting up in bed in no distress HEENT: Head is atraumatic, normocephalic, pupils were equal round reactive to light and recommendation, extraocular muscle movement were intact, sclera nonicteric, conjunctivae were pale, mucous membranes of the mouth are somewhat dry. Neck: Supple, no JVP, normal carotid upstroke bilaterally, no lymphadenopathy. Chest: Decreased breath sounds at the bases, few rhonchi, no extremity wheezes, no chest wall tenderness, no intercostal retractions. Heart: First heart sound is normal, second heart sound is normal there is systolic ejection murmur 2/6 located in the left sternal border, there is AICD in the left upper precordium. Abdomen: Soft, nontender, nondistended, positive bowel sounds. there is no hepatosplenomegaly. Extremities: There is no edema no calf tenderness DP +2 bilaterally. Neurologic examination: Patient is awake alert and oriented X 3, cranial nerves II-12 appear grossly intact, muscle power were 4 out of 5 in upper extremities and 4 out of 5 in bilateral lower extremities, deep tendon reflexes normal bilaterally. ASSESSMENT AND PLAN: 1. Acute kidney injury due to poor oral intake of fluid due to acute tubular necrosis and possible vasomotor nephropathy. Patient is back to baseline, discontinue IV fluid, restart the patient back on his diuretics tomorrow morning. 2. Traumatic hematuria likely due to Albright catheterization. Monitor the patient CBC and CMP, hold aspirin and Eliquis in the next 24 hours, if the patient hematuria is not better consult urology. 3. Hypertension and hypertensive cardiovascular disease. Continue patient on lisinopril 20 mg orally twice every day, increase Toprol XL 75 mg orally once ev orlin day monitor the patient blood pressure very closely. 4. Hyperlipidemia. Continue patient on atorvastatin 80 mg orally once every day. 5. CAD post-PCI with ischemic cardiomyopathy. Continue aspirin 81 mg once every day, metoprolol orally once every day, atorvastatin 80 mg orally once every day, restart the patient on spironolactone 25 mg orally once every day, hold off Lasix until the next 24 hours. 6. ALLERGIC rhinitis. Continue patient on loratadine 10 mg orally once every day. 7. GERD. Continue omeprazole 40 mg orally once every day as well as famotidine 40 mg at bedtime. 8. Constipation. Start the patient on lactulose 20 g orally twice every day, continue Senokot-s 2 tablet orally bedtime may use MiraLAX 17 g in 8 ounces water as needed. 9. Enlarged prostate. Continue tamsulosin 0.4 g orally once every day. 10. Paroxysmal atrial fibrillation. Continue patient on Eliquis 5 mg orally twice every day, continue patient on metoprolol ER 75 mg at bedtime. 11. 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 Continue patient on amiodarone 100 mg orally once every day continue metoprolol ER 75 mg at bedtime, patient is following with cardiology on a regular basis. 12. DVT prophylaxis. Continue Eliquis 5 mg orally twice every day. 13. GI prophylaxis. Continue PPI. 14. Generalized weakness with balance disorder. Physical therapy evaluation. 15. Likely home tomorrow morning. Objective - Vital Signs Vital signs: Vital Signs Temp 98.3 F 08/12/23 11:56 Pulse 67 08/12/23 11:56 Resp 17 08/12/23 11:56 BP 135/55 08/12/23 11:56 Pulse Ox 98 08/12/23 11:56 FiO2 21 08/12/23 11:09 Intake & Output 08/11/23 08/12/23 08/12/23 18:59 06:59 18:59 Intake Total 600 Output Total 750 950 150 Balance -750 -350 -150 Intake: Intake, IV Titration 600 Amount Sodium Chloride 0.9% 1, 600 000 ml @ 50 mls/hr IV . Q20H [facility] Rx#:[id number] Output: Urine 750 950 150 Other: Voiding Method Toilet Toilet Toilet Urinal Urinal Urinal - Labs CBC & Chem 7: 08/12/23 10:42 06/27/24 10:42 Labs: Abnormal Lab Results - Last 24 Hours (Table) 08/12/23 08/12/23 Range/Units 10:42 10:42 RBC 3.44 L (4.30-5.90) m/uL Hgb 11.3 L (13.0-17.5) gm/dL Hct 34.5 L (39.0-53.0) % MCV 100.3 H (80.0-100.0) fL Sodium 132 L (137-145) mmol/L Glucose 109 H (74-99) mg/dL Total Protein 5.2 L (6.3-8.2) g/dL Albumin 2.5 L (3.5-5.0) g/dL
[2023-08-13] MEDS: SPIRONOLACTONE 25 MG TAB PO SCH (01:16)
--- NOTE | 2023-08-13 07:47 | P.PN ---
Subjective Progress Note Date: 08/13/23 Principal diagnosis: Gross hematuria Patient continues to experience gross hematuria. He also reports urinary hesitancy, and indicates that he is having difficulty voiding because he must sit at the bedside given that he is blind and cannot walk into the bathroom. Objective - Vital Signs Vital signs: Vital Signs Temp 98.7 F 08/13/23 01:15 Pulse 74 08/13/23 02:06 Resp 18 08/13/23 01:15 BP 127/68 08/13/23 02:06 Pulse Ox 92 L 08/13/23 01:15 FiO2 21 08/12/23 11:09 Intake & Output 08/12/23 08/13/23 08/13/23 18:59 06:59 18:59 Output Total 150 850 Balance -150 -850 Output: Urine 150 850 Other: Voiding Method Toilet Toilet Urinal Urinal - Constitutional General appearance: Present: average body habitus, cooperative, no acute distress - Psychiatric Psychiatric: Present: A&O x's 3 - Labs CBC & Chem 7: 08/12/23 10:42 08/12/23 10:42 Labs: Abnormal Lab Results - Last 24 Hours (Table) 08/12/23 08/12/23 Range/Units 10:42 10:42 RBC 3.44 L (4.30-5.90) m/uL Hgb 11.3 L (13.0-17.5) gm/dL Hct 34.5 L (39.0-53.0) % MCV 100.3 H (80.0-100.0) fL Sodium 132 L (137-145) mmol/L Glucose 109 H (74-99) mg/dL Total Protein 5.2 L (6.3-8.2) g/dL Albumin 2.5 L (3.5-5.0) g/dL Assessment and Plan (1) Gross hematuria Current Visit: Yes Status: Acute Code(s): R31.0 - GROSS HEMATURIA SNOMED Code(s): 893094657 Plan: The source of the bleeding is unknown. It is noteworthy that urinalysis obtained at the time of admission, prior to catheterization, showed only trace microhematuria. That would suggest that the bleeding is due to catheter related trauma. A renal ultrasound has been ordered, as well as a bladder scan to assess bladder emptying.
[2023-08-13 08:28] LABS: Basophils # (A) 0.06 X 10*3/uL (0.00-0.10); Basophils % (A) 0.6 %; Eosinophils # (A) 0.38 X 10*3/uL (0.04-0.35); Eosinophils % (A) 3.8 %; HCT 32.6 % (39.6-50.0); HGB 10.2 g/dL (13.0-17.0); Lymphocytes # (A) 1.23 X 10*3/uL (0.90-5.00); Lymphocytes % (A) 12.3 %; MCH 31.5 pg (27.0-32.0); MCHC 31.3 g/dL (32.0-37.0); MCV 100.6 FL (80.0-97.0); Mean Platelet Volume 10.4 FL (9.5-12.2); Monocytes # (A) 0.88 X 10*3/uL (0.20-1.00); Monocytes % (A) 8.8 %; NRBC Per 100 WBC 0 X 10*3/uL (0.00-0.01); Neutrophils # (A) 7.35 X 10*3/uL (1.80-7.70); Neutrophils % (A) 73.9 %; Platelet Count 276 X 10*3/uL (140-440); RBC 3.24 X 10*6/uL (4.40-5.60); WBC 9.96 X 10*3/uL (4.50-10.00)
[2023-08-13 08:41] LABS: ALT 9 U/L (10-49); AST 15 U/L (14-35); Albumin 2.7 g/dL (3.8-4.9); Albumin/Globulin Ratio 1.17 Ratio (1.60-3.17); Alkaline Phosphatase 93 U/L (41-126); BUN/Creat Ratio 15.22 Ratio (12.00-20.00); Blood Urea Nitrogen 13.7 mg/dL (9.0-27.0); Calcium 8.3 mg/dL (8.7-10.3); Carbon Dioxide 22.2 mmol/L (21.6-31.8); Chloride 102 mmol/L (96-109); Globulin 2.3 g/dL (1.6-3.3); Glucose 101 mg/dL (70-110); Potassium 4.6 mmol/L (3.5-5.5); Sodium 132 mmol/L (135-145); Total Bilirubin 0.7 mg/dL (0.3-1.2)
[2023-08-13] MEDS: FUROSEMIDE 20 MG TAB PO SCH (09:08)
--- NOTE | 2023-08-13 09:08 | US ---
EXAMINATION TYPE: US kidneys/renal and bladder DATE OF EXAM: 08/13/2023 COMPARISON: US 06/20/2018 CLINICAL INDICATION: Male, 88 years old with history of Hematuria; Hematuria. EXAM MEASUREMENTS: Right Kidney: 12.9 x 5.0 x 5.3 cm Left Kidney: 12.3 x 5.5 x 5.9 cm Right Kidney: Enlarged. Anechoic area seen lower pole: 7.8 x 6.0 x 6.2 cm. Left Kidney: Limited visibility. Anechoic area seen lower pole: 1.8 x 2.2 x 1.4 cm. Bladder: Echogenic material seen within the bladder: 4.9 x 7.2 x 5.3 cm. Bilateral Jets seen: No, unable to evaluate due to patient needing to void. IMPRESSION: Urinary bladder base has a complex appearance with possible mass. Further workup recommen ded, consider direct visualization.
--- NOTE | 2023-08-13 14:03 | P.PN ---
Subjective Progress Note Date: 08/13/23 HISTORY OF PRESENT ILLNESS: This is an 88-year-old male with a previous medical history signifi cant for hypertension and hypertensive cardio vascular disease, hyperlipidemia, paroxysmal atrial fibrillation, coronary artery disease with ischemic cardiomyopathy, enlarged prostate, history of AICD, patient presented to the emergency department at [facility] yesterday because of increased fatigue and generalized weakness, not able to eat and drink much, he was found to have a minimal acute kidney injury due to poor oral intake of fluid, patient was evaluated in the emergency department, he was started on IV fluid resuscitation in the form of normal saline at 50 cc an hour, he was admitted to the hospital for further evaluation and recommendation, patient did have a Albright catheter placed and an ended up having hematuria secondary to that, he was able to urinate very well, however we will continue to monitor the patient hematuria very closely, if is not better we will ask for urology consultation. 08/11: Patient is sitting up in bed in no apparent distress, he continues to be very hard of hearing, he is using his hearing aids, he continues to have hematuria, I held his aspirin and Eliquis, ask for urology consultation from Dr. Calire, monitor the patient CBC over the next 24 hours, hemoglobin so far is not dropping quite a bit, increase oral intake of fluid, discontinue IV fluid at this time, restart the patient back on his IV diuretics in the next 24 hours. Patient does not appear to be in acute distress at this point in time. 08/12: Patient continues to have significant hematuria, we held his aspirin and Eliquis for the second day in a row, patient was seen earlier by urology, he recommended ultrasound of the abdomen and bladder along with the kidneys, there is a complex mass inside his bladder suggestive of possible mass could not be very well-evaluated due to the patient need to go to the bathroom, patient will stay off his anticoagulation for now, await urology recommendation for possible cystoscopy for further evaluation recommendation at this time. Patient appears to be stable at this time, his hemoglobin did drop a bit today, we will continue to follow the patient very closely. REVIEW OF SYSTEMS: Constitutional: No documented fever, no chills, no night sweats. No weight change. Positive for weakness, fatigue no lethargy. No daytime sleepiness. HEENT: Positive for headache. Positive blurred vision or double vision, no loss of vision. Positive for loss of Hearing, no ringing in the ears, no dizziness. Positive for nasal crust or congestion. No epistaxis. No sore throat. Lungs: No shortness of breath, no cough, no sputum production. No wheezing. Reports dyspnea with activity. Cardiovascular: No chest pain, no lower extremity edema. No palpitations. No paroxysmal nocturnal dyspnea. No orthopnea. No lightheadedness or dizziness. No syncopal episodes. Abdominal: Reports abdominal pain. No nausea, vomiting. No diarrhea. positive for constipation. No bloody or tarry stools reports loss of appetite. Genitourinary: No dysuria, increased frequency, urgency. No urinary retention. Positive for hematuria. Musculoskeletal: No myalgias. Positive for muscle weakness, no gait dysfunction, no frequent falls. No back pain. No neck pain. Integumentary: no skin rash Neurologic: No aphasia. No facial droop. No change in mentation. No head injury. No headache. No paralysis. No paresthesia. Psychiatric: No depression. No anxiety. No mood swings. Endocrine: No abnormal blood sugars. No weight change. PHYSICAL EXAMINATION: General: this is an 88-year-old male who is sitting up in bed in no di stress HEENT: Head is atraumatic, normocephalic, pupils were equal round reactive to light and recommendation, extraocular muscle movement were intact, sclera nonicteric, conjunctivae were pale, mucous membranes of the mouth are somewhat dry. Neck: Supple, no JVP, normal carotid upstroke bilaterally, no lymphadenopathy. Chest: Decreased breath sounds at the bases, few rhonchi, no extremity wheezes, no chest wall tenderness, no intercostal retractions. Heart: First heart sound is normal, second heart sound is normal there is systolic ejection murmur 2/6 located in the left sternal border, there is AICD in the left upper precordium. Abdomen: Soft, nontender, nondistended, positive bowel sounds. there is no hepatosplenomegaly. Extremities: There is no edema no calf tenderness DP +2 bilaterally. Neurologic examination: Patient is awake alert and oriented X 3, cranial nerves II-12 appear grossly intact, muscle power were 4 out of 5 in upper extremities and 4 out of 5 in bilateral lower extremities, deep tendon reflexes normal bilaterally. ASSESSMENT AND PLAN: 1. Acute kidney injury due to poor oral intake of fluid due to acute tubular necrosis and possible vasomotor nephropathy. Patient is back to baseline, discontinue IV fluid. 2. Gross hematuria due to bladder mass rule out bladder cancer. Stay off aspirin and Eliquis for now, urology is on the case, patient will need to have a cystoscopy for further evaluation recommendation. 3. Hypertension and hypertensive cardiovascular disease. Continue patient on lisinopril 20 mg orally twice every day, increase Toprol XL 75 mg orally once every day monitor the patient blood pressure very closely. 4. Hyperlipidemia. Continue patient on atorvastatin 80 mg orally once every day. 5. CAD post-PCI with ischemic cardiomyopathy. Continue aspirin 81 mg once every day, metoprolol orally once every day, atorvastatin 80 mg orally once every day, restart the patient on spironolactone 25 mg orally once every day, continue Lasix 20 mg orally once every day. 6. ALLERGIC rhinitis. Continue patient on loratadine 10 mg orally once every day. 7. GERD. Continue omeprazole 40 mg orally once every day as well as famotidine 40 mg at bedtime. 8. Constipation. Start the patient on lactulose 20 g orally twice every day, continue Senokot-s 2 tablet orally bedtime may use MiraLAX 17 g in 8 ounces water as needed. 9. Enlarged prostate. Continue tamsulosin 0.4 g orally once every day. 10. Paroxysmal atrial fibrillation. Hold off Eliquis due to bleeding, continue patient on metoprolol ER 75 mg at bedtime. 11. 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 Continue patient on amiodarone 100 mg orally once every day continue metoprolol ER 75 mg at bedtime, patient is following with cardiology on a regular basis. 12. DVT prophylaxis. Bilateral knee-high YOMI hose hold off Eliquis due to bladder mass. 13. GI prophylaxis. Continue PPI. 14. Generalized weakness with balance disorder. Physical therapy evaluation. Objective - Vital Signs Vital signs: Vital Signs Temp 98.8 F 08/13/23 08:00 Pulse 64 08/13/23 08:00 Resp 18 08/13/23 08:00 BP 137/61 08/13/23 08:00 Pulse Ox 95 08/13/23 12:09 FiO2 21 08/12/23 11:09 Intake & Output 08/12/23 08/13/23 08/13/23 18:59 06:59 18:59 Output Total 150 850 625 Balance -940 -659 -684 Output: Urine 150 850 625 Other: Voiding Method Toilet Toilet Urinal Urinal # Voids 1 # Bowel Movements 1 - Labs CBC & Chem 7: 08/13/23 04:50 08/13/23 04:50 Labs: Abnormal Lab Results - Last 24 Hours (Table) 08/13/23 08/13/23 Range/Units 04:50 04:50 RBC 3.24 L (4.40-5.60) X 10*6/uL Hgb 10.2 L (13.0-17.0) g/dL Hct 32.6 L (39.6-50.0) % MCV 100.6 H (80.0-97.0) FL MCHC 31.3 L (32.0-37.0) g/dL Immature Gran # 0.06 H (0.00-0.04) X 10*3/uL Eosinophils # 0.38 H (0.04-0.35) X 10*3/uL Sodium 132 L (135-145) mmol/L Calcium 8.3 L (8.7-10.3) mg/dL ALT 9 L (10-49) U/L Total Protein 5.0 L (6.2-8.2) g/dL Albumin 2.7 L (3.8-4.9) g/dL Albumin/Globulin Ratio 1.17 L (1.60-3.17) Ratio
[2023-08-13] MEDS: ACETAMINOPHEN TAB 325 MG TAB PO PRN (18:24)
--- NOTE | 2023-08-14 07:40 | P.GSCN ---
History of Present Illness Consult date: 08/12/23 Reason for Consult: Hematuria Requesting physician: Oskar Rowland History of present illness: The patient is an 88-year-old white male with multiple medical problems, including hypertension with hypertensive cardiovascular disease, hyperlipidemia, paroxysmal atrial fibrillation, coronary artery disease, ischemic cardiomy opathy, and BPH. He presented to the ER with generalized weakness and fatigue, as well as diminished appetite. He underwent ureteroscopic removal of a left UPJ calculus in April 2018. Follow-up ultrasound showed no evidence of hydronephrosis, and he has not been seen since that time. He was reportedly catheterized for a urine specimen upon presentation and has experienced gross hematuria since that time. When asked if he had hematuria prior to admission, he states that he is blind and would not be able to tell. It is noteworthy that the urinalysis obtained at the time of admission showed only 7 RBC/HPF. Review of Systems - Genitourinary Reports as per HPI Past Medical History Past Medical History: Coronary Artery Disease (CAD), Heart Failure, Eye Disorder, GERD/Reflux, GI Bleed, Hyperlipidemia, Hypertension, Myocardial Infarction (MD), Osteoarthritis (OA), Prostate Disorder, Thyroid Disorder Additional Past Medical History / Comment(s): cardiomyopathy, DENGENERATIVE ARTHRITIS, MACULAR DEGENERATION AND CATARACTS,GI BLEED 2011, fall 11-24-16/facial inj/bruing/broken front teeth,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 , LEGALLY BLIND, FELL AND CUT HIS LT ARM-NO STITCHES NEEDED BUT PUT ON ANTIBIOTICS PREVENTATIVE-STILL HAS BRUISING.-NOTIFIED [facility] IN PAIN CLINIC-SEE NN PLEASE Last Myocardial Infarction Date:: History of Any Multi-Drug Resistant Organisms: None Reported Past Surgical History: Adenoidectomy, AICD, Appendectomy, Cholecystectomy, Heart Catheterization, Heart Catheterization With Stent, Joint Replacement, Orthopedic Surgery, Pacemaker, Tonsillectomy Additional Past Surgical History / Comment(s): AICD, Defrillation Testing 04/02/14, TOTAL LT/RT KNEE ARTHROPLASTY, bilateral CATARACTS, bilateral carpal tunnel releases, PARTIAL THYROIDECTOMY due to nodules, trigger fingers,heart stents x3, PAIN CLINIC PROCEDURES Past Anesthesia/Blood Transfusion Reactions: No Reported Reaction Additional Past Anesthesia/Blood Transfusion Reaction / Comm: wakes up during surgery,no hx blood transfusion Date of Last Stent Placement:: Type of Cardiac Device: Biventricular Pacemaker, AICD Device Placement Date:: 12-04-13 [employer] Past Psychological History: No Psychological Hx Reported Additional Psychological History / Comment(s): He uses a walker at home. He no longer drives, Smoking Status: Former smoker Past Alcohol Use History: None Reported Additional Past Alcohol Use History / Comment(s): started smoking 1953, quit 1973 smoked 1 ppd. Past Drug Use History: None Reported - Past Family History Son(s) Family Medical History: No Reported History Father Family Medical History: Cancer, Coronary Artery Disease (CAD), CVA/TIA, Diabetes Mellitus Additional Family Medical History / Comment(s): CAROTID ARTERY BLOCKAGE.SX IN 1988 Mother Family Medical History: Unable to Obtain Additional Family Medical History / Comment(s): AT AGE 89- UNK HX Daughter(s) Family Medical History: Cancer (Patient has 2 adopted daughters and he has been under a lot of stress with his adopted daughter whom her left taking her cars with him.) BROTHER Family Medical History: Cancer Additional Family Medical History / Comment(s): BONE, PANCREATIC Medications and Allergies Home Medications Medication Instructions Recorded Confirmed Type Spironolactone [Aldactone] 12.5 mg PO DAILY@0700 12/03/16 08/10/23 History Aspirin [Adult Low Dose Aspirin EC] 81 mg PO DAILY@0700 11/16/17 08/10/23 History Atorvastatin [Lipitor] 80 mg PO HS@1900 03/03/21 08/10/23 History Nitroglycerin 0.4 mg SL Q5M PRN 09/28/22 08/10/23 History Metoprolol Succinate (ER) [Toprol 75 mg PO HS@1900 11/13/22 08/10/23 History XL] Acetaminophen Tab [Tylenol] 650 mg PO Q6H PRN 05/22/23 08/10/23 History Baclofen [Lioresal] 5 mg PO DAILY PRN tab 05/26/23 08/10/23 Rx Lactulose [Cephulac] 20 gm PO TID PRN ml 05/26/23 08/10/23 Rx Amiodarone [Cordarone] 100 mg PO DAILY@0700 08/10/23 08/10/23 History Apixaban [Eliquis] 5 mg PO BID@0700,1900 08/10/23 08/10/23 History Arthritis Pain Relief Roll-On 1 applic TOPICAL DAILY PRN 08/10/23 08/10/23 History Cbdigest 1 cap PO HS@189908/10/23 08/10/23 History Fluticasone Nasal [place] [Flonase 2 spray EA NOSTRIL DAILY@189908/10/23 08/10/23 History Nasal [place]] Furosemide [Lasix] 20 mg PO DAILY@0708/10/23 08/10/23 History HYDROcodone/APAP 5-325MG [[place] 1 tab PO BID PRN 08/10/23 08/10/23 History 5-325] Levocetirizine Dihydrochloride 5 mg PO HS@189908/10/23 08/10/23 History [Xyzal] Montelukast Sodium 10 mg PO DAILY@0708/10/23 08/10/23 History Omeprazole 40 mg PO AC-BRKFST@69908/10/23 08/10/23 History Sennosides [Senokot] 8.6 mg PO BID@0700,189908/10/23 08/10/23 History lisinopriL [Zestril] 20 mg PO DAILY@0708/10/23 08/10/23 History polyethylene glycoL 3350 [Miralax] 17 gm PO DAILY@0708/10/23 08/10/23 History Allergies Allergy/AdvReac Type Severity Reaction Status Date / Time amlodipine besylate Allergy Rash/Hives Verified 08/10/23 15:25 [From Norvasc] isosorbide [From Imdur] Allergy Unknown Verified 08/10/23 15:25 Latex, Natural Rubber Allergy Rash/Hives Verified 08/10/23 15:25 Surgical - Exam Vital Signs Temp Pulse Resp BP Pulse Ox 97.6 F 74 18 81/52 91 L 08/10/23 13:59 08/10/23 13:59 08/10/23 13:59 08/10/23 13:59 08/10/23 13:59 - General well developed, well nourished, no distress - Respiratory normal respiratory effort - Abdomen Abdomen: soft, non tender, no guarding, no rigid, no rebound - Genitourinary Normal phallus, normal urethral meatus. No bleeding per meatus. Normal scrotum and testes. - Psychiatric oriented to time, oriented to person, oriented to place, speech is normal, memory intact Results - Labs 08/13/23 04:50 08/13/23 04:50 Abnormal Lab Results - Last 24 Hours (Table) 08/12/23 08/12/23 Range/Units 10:42 10:42 RBC 3.44 L (4.30-5.90) m/uL Hgb 11.3 L (13.0-17.5) gm/dL Hct 34.5 L (39.0-53.0) % MCV 100.3 H (80.0-100.0) fL Sodium 132 L (137-145) mmol/L Glucose 109 H (74-99) mg/dL Total Protein 5.2 L (6.3-8.2) g/dL Albumin 2.5 L (3.5-5.0) g/dL Diabetes panel 08/12/23 Range/Units 10:42 Sodium 132 L (137-145) mmol/L Potassium 4.7 (3.5-5.1) mmol/L Chloride 107 (98-107) mmol/L Carbon Dioxide 22 (22-30) mmol/L BUN 17 (9-20) mg/dL Creatinine 0.76 (0.66-1.25) mg/dL Glucose 109 H (74-99) mg/dL Calcium 8.6 (8.4-10.2) mg/dL AST 17 (17-59) U/L ALT 10 (4-49) U/L Alkaline Phosphatase 91 (38-126) U/L Total Protein 5.2 L (6.3-8.2) g/dL Albumin 2.5 L (3.5-5.0) g/dL Calcium panel 08/12/23 Range/Units 10:42 Calcium 8.6 (8.4-10.2) mg/dL Albumin 2.5 L (3.5-5.0) g/dL Pituitary panel 08/12/23 Range/Units 10:42 Sodium 132 L (137-145) mmol/L Potassium 4.7 (3.5-5.1) mmol/L Chloride 107 (98-107) mmol/L Carbon Dioxide 22 (22-30) mmol/L BUN 17 (9-20) mg/dL Creatinine 0.76 (0.66-1.25) mg/dL Glucose 109 H (74-99) mg/dL Calcium 8.6 (8.4-10.2) mg/dL Adrenal panel 08/12/23 Range/Units 10:42 Sodium 132 L (137-145) mmol/L Potassium 4.7 (3.5-5.1) mmol/L Chloride 107 (98-107) mmol/L Carbon Dioxide 22 (22-30) mmol/L BUN 17 (9-20) mg/dL Creatinine 0.76 (0.66-1.25) mg/dL Glucose 109 H (74-99) mg/dL Calcium 8.6 (8.4-10.2) mg/dL Total Bilirubin 1.2 (0.2-1.3) mg/dL AST 17 (17-59) U/L ALT 10 (4-49) U/L Alkaline Phosphatase 91 (38-126) U/L Total Protein 5.2 L (6.3-8.2) g/dL Albumin 2.5 L (3.5-5.0) g/dL Assessment and Plan (1) Gross hematuria Current Visit: Yes Status: Acute Code(s): R31.0 - GROSS HEMATURIA SNOMED Code(s): 274166195 Plan: The source of the bleeding is unknown, but appears to be due to catheter trauma. He will be observed, and further evaluation will be considered if the hematuria fails to resolve. Time with Patient: Greater than 30
[2023-08-14 09:19] LABS: Basophils # (A) 0.08 X 10*3/uL (0.00-0.10); Basophils % (A) 0.9 %; Eosinophils # (A) 0.49 X 10*3/uL (0.04-0.35); Eosinophils % (A) 5.3 %; HCT 30.7 % (39.6-50.0); HGB 10.2 g/dL (13.0-17.0); Lymphocytes # (A) 1.53 X 10*3/uL (0.90-5.00); Lymphocytes % (A) 16.4 %; MCH 32.1 pg (27.0-32.0); MCHC 33.2 g/dL (32.0-37.0); MCV 96.5 FL (80.0-97.0); Monocytes # (A) 0.69 X 10*3/uL (0.20-1.00); Monocytes % (A) 7.4 %; NRBC Per 100 WBC 0 X 10*3/uL (0.00-0.01); Neutrophils # (A) 6.46 X 10*3/uL (1.80-7.70); Neutrophils % (A) 69.2 %; Platelet Count 272 X 10*3/uL (140-440); RBC 3.18 X 10*6/uL (4.40-5.60); RDW 12.8 % (11.5-14.5); WBC 9.32 X 10*3/uL (4.50-10.00)
[2023-08-14 09:43] LABS: ALT 10 U/L (10-49); AST 15 U/L (14-35); Albumin 2.7 g/dL (3.8-4.9); Albumin/Globulin Ratio 1.23 Ratio (1.60-3.17); Alkaline Phosphatase 89 U/L (41-126); BUN/Creat Ratio 16.25 Ratio (12.00-20.00); Calcium 8.3 mg/dL (8.7-10.3); Carbon Dioxide 20.8 mmol/L (21.6-31.8); Chloride 100 mmol/L (96-109); Globulin 2.2 g/dL (1.6-3.3); Glucose 102 mg/dL (70-110); Potassium 4.4 mmol/L (3.5-5.5); Sodium 130 mmol/L (135-145); Total Bilirubin 0.5 mg/dL (0.3-1.2); Total Protein 4.9 g/dL (6.2-8.2)
[2023-08-14] MEDS: LIDOCAINE 2% URO-JET JELLY 5 ML KIT URETHRAL STA (11:22)
--- NOTE | 2023-08-14 11:43 | P.PN ---
Subjective Progress Note Date: 08/14/23 HISTORY OF PRESENT ILLNESS: This is an 88-year-old male with a previous medical history signifi cant for hypertension and hypertensive cardio vascular disease, hyperlipidemia, paroxysmal atrial fibrillation, coronary artery disease with ischemic cardiomyopathy, enlarged prostate, history of AICD, patient presented to the emergency department at [facility] yesterday because of increased fatigue and generalized weakness, not able to eat and drink much, he was found to have a minimal acute kidney injury due to poor oral intake of fluid, patient was evaluated in the emergency department, he was started on IV fluid resuscitation in the form of normal saline at 50 cc an hour, he was admitted to the hospital for further evaluation and recommendation, patient did have a Albright catheter placed and an ended up having hematuria secondary to that, he was able to urinate very well, however we will continue to monitor the patient hematuria very closely, if is not better we will ask for urology consultation. 08/11: Patient is sitting up in bed in no apparent distress, he continues to be very hard of hearing, he is using his hearing aids, he continues to have hematuria, I held his aspirin and Eliquis, ask for urology consultation from Dr. Claire, monitor the patient CBC over the next 24 hours, hemoglobin so far is not dropping quite a bit, increase oral intake of fluid, discontinue IV fluid at this time, restart the patient back on his IV diuretics in the next 24 hours. Patient does not appear to be in acute distress at this point in time. 08/12: Patient continues to have significant hematuria, we held his aspirin and Eliquis for the second day in a row, patient was seen earlier by urology, he recommended ultrasound of the abdomen and bladder along with the kidneys, there is a complex mass inside his bladder suggestive of possible mass could not be very well-evaluated due to the patient need to go to the bathroom, patient will stay off his anticoagulation for now, await urology recommendation for possible cystoscopy for further evaluation recommendation at this time. Patient appears to be stable at this time, his hemoglobin did drop a bit today, we will continue to follow the patient very closely. 08/13: Patient continues to have on and off hematuria, he is able to get his urine out, he is complaining of increased pressure in his urine, he denies any fever or chills at this time, I spoke with Dr. Hernandez at this time, he is planning for the patient to go for cystoscopy tomorrow morning likely he has a blood clot in his bladder, this is could be related to traumatic Albright catheterization, patient will be taken to the OR tomorrow morning for cystoscopy and evacuation of the blood clot, we will continue to hold aspirin as well as Eliquis for now, we will monitor the patient during his hospital stay, likely will need to go back to subacute rehabilitation for physical therapy and rehabilitation. REVIEW OF SYSTEMS: Constitutional: No documented fever, no chills, no night sweats. No weight change. Positive for weakness, fatigue no lethargy. No daytime sleepiness. HEENT: Positive for headache. Positive blurred vision or double vision, no loss of vision. Positive for loss of Hearing, no ringing in the ears, no dizziness. Positive for nasal crust or congestion. No epistaxis. No sore throat. Lungs: No shortness of breath, no cough, no sputum production. No wheezing. Reports dyspnea with activity. Cardiovascular: No chest pain, no lower extremity edema. No palpitations. No paroxysmal nocturnal dyspnea. No orthopnea. No lightheadedness or dizziness. No syncopal episodes. Abdominal: Reports abdominal pain. No nausea, vomiting. No diarrhea. positive for constipation. No bloody or tarry stools reports loss of appetite. Genitourinary: No dysuria, increased frequency, urgency. No urinary retention. Positive for hematuria. Musculoskeletal: No myalgias. Positive for muscle weakness, no gait dysfunction, no frequent falls. No back pain. No neck pain. Integumentary: no skin rash Neurologic: No aphasia. No facial droop. No change in mentation. No head injury. No headache. No paralysis. No paresthesia. Psychiatric: No depression. No anxiety. No mood swings. Endocrine: No abnormal blood sugars. No weight change. PHYSICAL EXAMINATION: General: this is an 88-year-old male who is sitting up in bed in no distress HEENT: Head is atraumatic, normocephalic, pupils were equal round reactive to light and recommendation, extraocular muscle movement were intact, sclera nonicteric, conjunctivae were pale, mucous membranes of the mouth are somewhat dry. Neck: Supple, no JVP, normal carotid upstroke bilaterally, no lymphadenopathy. Chest: Decreased breath sounds at the bases, few rhonchi, no extremity wheezes, no chest wall tenderness, no intercostal retractions. Heart: First heart sound is normal, second heart sound is normal there is systolic ejection murmur 2/6 located in the left sternal border, there is AICD in the left upper precordium. Abdomen: Soft, nontender, nondistended, positive bowel sounds. there is no hepatosplenomegaly. Extremities: There is no edema no calf tenderness DP +2 bilaterally. Neurologic examination: Patient is awake alert and oriented X 3, cranial nerves II-12 appear grossly intact, muscle power were 4 out of 5 in upper extremities and 4 out of 5 in bilateral lower extremities, deep tendon reflexes normal bilaterally. ASSESSMENT AND PLAN: 1. Acute kidney injury due to poor oral intake of fluid due to acute tubular necrosis and possible vasomotor nephropathy. Patient is back to baseline, I will restart the patient on normal saline at 50 cc an hour. 2. Gross hematuria due to bladder mass likely related to a blood clot doubt bladder mass. Stay off aspirin and Eliquis for now, urology is on the case, patient will have a Albright catheter inserted and try to pull the clot out as the hospital does not have the equipment to evacuate the clot in the OR during cystoscopy. Dr. Escamilla is at the bedside, and he will attempt to place a Albright catheterization due to postvoid residual of greater than 275 patient is able to be about 10 to 50 cc of mercedez-colored urine. 3. Hypertension and hypertensive cardiovascular disease. Continue patient on lisinopril 20 mg orally twice every day, increase Toprol XL 75 mg orally once every day monitor the patient blood pressure very closely. 4. Hyperlipidemia. Continue patient on atorvastatin 80 mg orally once every day. 5. CAD post-PCI with ischemic cardiomyopathy. Continue aspirin 81 mg once every day, metoprolol orally once every day, atorvastatin 80 mg orally once every day, discontinue Lasix and spironolactone for now. 6. ALLERGIC rhinitis. Continue patient on loratadine 10 mg orally once every day. 7. GERD. Continue omeprazole 40 mg orally once every day as well as famotidine 40 mg at bedtime. 8. Constipation. Start the patient on lactulose 20 g orally twice every day, continue Senokot-s 2 tablet orally bedtime may use MiraLAX 17 g in 8 ounces water as needed. 9. Enlarged prostate. Continue tamsulosin 0.4 g orally once every day. 10. Paroxysmal atrial fibrillation. Hold off Eliquis due to bleeding, continue patient on metoprolol ER 75 mg at bedtime. 11. 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 Continue patient on amiodarone 100 mg orally once every day continue metoprolol ER 75 mg at bedtime, patient is following with cardiology on a regular basis. 12. DVT prophylaxis. Bilateral knee-high YOMI hose hold off Eliquis due to bladder mass. 13. GI prophylaxis. Continue PPI. 14. Generalized weakness with balance disorder. Physical therapy evaluation. 15. Patient does appear to have some urinary retention he is going to have a Albright catheter insertion by urology Dr. Escamilla is at the bedside. Objective - Vital Signs Vital signs: Vital Signs Temp 98.1 F 08/14/23 07:28 Pulse 62 08/14/23 07:28 Resp 19 08/14/23 07:28 BP 129/66 08/14/23 07:28 Pulse Ox 95 08/14/23 07:28 FiO2 21 08/12/23 11:09 Intake & Output 08/13/23 08/14/23 08/14/23 18:59 06:59 18:59 Intake Total 1080 Output Total 1875 1425 350 Balance -795 1425 -350 Intake: Oral 1080 Output: Urine 1875 1425 350 Other: Voiding Method Toilet Toilet Toilet Urinal Urinal Urinal # Voids 1 2 # Bowel Movements 1 1 - Labs CBC & Chem 7: 08/14/23 04:39 08/14/23 04:39 Labs: Abnormal Lab Results - Last 24 Hours (Table) 08/14/23 08/14/23 Range/Units 04:39 04:39 RBC 3.18 L (4.40-5.60) X 10*6/uL Hgb 10.2 L (13.0-17.0) g/dL Hct 30.7 L (39.6-50.0) % MCH 32.1 H (27.0-32.0) pg Immature Gran # 0.07 H (0.00-0.04) X 10*3/uL Eosinophils # 0.49 H (0.04-0.35) X 10*3/uL Sodium 130 L (135-145) mmol/L Carbon Dioxide 20.8 L (21.6-31.8) mmol/L Calcium 8.3 L (8.7-10.3) mg/dL Total Protein 4.9 L (6.2-8.2) g/dL Albumin 2.7 L (3.8-4.9) g/dL Albumin/Globulin Ratio 1.23 L (1.60-3.17) Ratio
[2023-08-14] MEDS: SODIUM CHLORIDE 0.9% 1,000 ML IV SCH (12:22)
--- NOTE | 2023-08-14 15:15 | P.PN ---
Subjective Progress Note Date: 08/14/23 Principal diagnosis: Gross hematuria The patient's urine has turned mercedez in color, but he is reporting increased difficulty voiding. Postvoid residual is approximately 275 cc. Renal ultrasound was unremarkable, though the left kidney was poorly visualized. Echogenic material was seen within the bladder, thought to represent clot. Objective - Vital Signs Vital signs: Vital Signs Temp 98.4 F 08/14/23 12:57 Pulse 61 08/14/23 12:57 Resp 18 08/14/23 12:57 BP 114/72 08/14/23 12:57 Pulse Ox 96 08/14/23 12:57 FiO2 21 08/12/23 11:09 Intake & Output 08/13/23 08/14/23 08/14/23 18:59 06:59 18:59 Intake Total 1080 Output Total 1875 1425 350 Balance -797 -1425 -350 Intake: Oral 1080 Output: Urine 1875 1425 350 Other: Voiding Method Toilet Toilet Toilet Urinal Urinal Urinal # Voids 1 2 # Bowel Movements 1 1 - Constitutional General appearance: Present: average body habitus, cooperative, no acute distress - Gastrointestinal General gastrointestinal: Present: soft. Absent: distended, tenderness - Genitourinary Genitourinary Comment(s): Normal phallus and testes. - Psychiatric Psychiatric: Present: A&O x's 3 - Labs CBC & Chem 7: 08/14/23 04:39 08/14/23 04:39 Labs: Abnormal Lab Results - Last 24 Hours (Table) 08/14/23 08/14/23 Range/Units 04:39 04:39 RBC 3.18 L (4.40-5.60) X 10*6/uL Hgb 10.2 L (13.0-17.0) g/dL Hct 30.7 L (39.6-50.0) % MCH 32.1 H (27.0-32.0) pg Immature Gran # 0.07 H (0.00-0.04) X 10*3/uL Eosinophils # 0.49 H (0.04-0.35) X 10*3/uL Sodium 130 L (135-145) mmol/L Carbon Dioxide 20.8 L (21.6-31.8) mmol/L Calcium 8.3 L (8.7-10.3) mg/dL Total Protein 4.9 L (6.2-8.2) g/dL Albumin 2.7 L (3.8-4.9) g/dL Albumin/Globulin Ratio 1.23 L (1.60-3.17) Ratio Assessment and Plan (1) Gross hematuria Current Visit: Yes Status: Acute Code(s): R31.0 - GROSS HEMATURIA SNOMED C ode(s): [id number] Plan: The source of the bleeding is unknown, but appears to be due to catheter trauma. It was presumed that the patient was in urinary clot retention. A 22 Chinese, three-way Albright catheter was placed, and the bladder was irrigated. The return was clear without clots. The catheter was left to gravity drainage, with the irrigation port plugged. If the hematuria recurs, continuous bladder irrigation will be started. If the urine remains clear, it would be reasonable to remove the catheter in 24 to 48 hours. Consideration should be given to outpatient cystoscopy to rule out intravesical pathology, as the echogenic material seen on ultrasound could represent tumor, though it is more likely the result of clots resulting from Albright catheter trauma.
--- NOTE | 2023-08-14 15:18 | P.PCN ---
Date of Procedure: 08/14/23 Preoperative Diagnosis: Hematuria with clots, incomplete bladder emptying Postoperative Diagnosis: Same Procedure(s) Performed: Albright catheter insertion, irrigation of catheter. Anesthesia: local Surgeon: Claude Escamilla Estimated Blood Loss (ml): 0 Pathology: none sent Condition: stable Disposition: no change Indications for Procedure: Patient is an 88-year-old white male admitted with weakness. He was evaluated in the ER and straight catheterized. He has developed gross hematuria with clots as a result of this. Ultrasound performed August 12 showed echogenic material in the bladder presumed to be clot. The hematuria today is much improved. However, the patient has been found to empty his bladder incompletely. Operative Findings: Successful Albright catheter placement. Irrigation was performed, without evidence of clots. Description of Procedure: The patient was placed supine in his hospital bed. The penis was prepped and draped sterilely. 2% lidocaine gel was administered intraurethrally. A 22 Armenian, three-way Albright catheter was then passed into the bladder, with return of clear urine. The catheter was then irrigated with a piston syringe. No clots were obtained. The irrigation port was plugged, and the catheter was left to gravity drainage. The patient tolerated the procedure well.
[2023-08-14] MEDS: BACLOFEN 10 MG TAB PO PRN (18:09)
[2023-08-15 09:34] LABS: Basophils # (A) 0.09 X 10*3/uL (0.00-0.10); Basophils % (A) 0.9 %; Eosinophils # (A) 0.37 X 10*3/uL (0.04-0.35); Eosinophils % (A) 3.8 %; HGB 10.4 g/dL (13.0-17.0); Lymphocytes # (A) 1.43 X 10*3/uL (0.90-5.00); Lymphocytes % (A) 14.6 %; MCH 32.5 pg (27.0-32.0); MCHC 33.5 g/dL (32.0-37.0); MCV 96.9 FL (80.0-97.0); Mean Platelet Volume 10.1 FL (9.5-12.2); Monocytes # (A) 0.88 X 10*3/uL (0.20-1.00); NRBC Per 100 WBC 0 X 10*3/uL (0.00-0.01); Neutrophils # (A) 6.92 X 10*3/uL (1.80-7.70); Neutrophils % (A) 70.8 %; Platelet Count 276 X 10*3/uL (140-440); RDW 13.1 % (11.5-14.5); WBC 9.78 X 10*3/uL (4.50-10.00)
[2023-08-15 10:19] LABS: ALT 9 U/L (10-49); AST 13 U/L (14-35); Albumin 2.6 g/dL (3.8-4.9); Albumin/Globulin Ratio 1.08 Ratio (1.60-3.17); Alkaline Phosphatase 86 U/L (41-126); BUN/Creat Ratio 14.38 Ratio (12.00-20.00); Blood Urea Nitrogen 11.5 mg/dL (9.0-27.0); Calcium 8.4 mg/dL (8.7-10.3); Carbon Dioxide 23.2 mmol/L (21.6-31.8); Chloride 103 mmol/L (96-109); Globulin 2.4 g/dL (1.6-3.3); Glucose 105 mg/dL (70-110); Potassium 4.4 mmol/L (3.5-5.5); Sodium 134 mmol/L (135-145); Total Bilirubin 0.4 mg/dL (0.3-1.2)
--- NOTE | 2023-08-15 12:15 | P.PN ---
Subjective Progress Note Date: 08/15/23 HISTORY OF PRESENT ILLNESS: This is an 88-year-old male with a previous medical history signifi cant for hypertension and hypertensive cardio vascular disease, hyperlipidemia, paroxysmal atrial fibrillation, coronary artery disease with ischemic cardiomyopathy, enlarged prostate, history of AICD, patient presented to the emergency department at [facility] yesterday because of increased fatigue and generalized weakness, not able to eat and drink much, he was found to have a minimal acute kidney injury due to poor oral intake of fluid, patient was evaluated in the emergency department, he was started on IV fluid resuscitation in the form of normal saline at 50 cc an hour, he was admitted to the hospital for further evaluation and recommendation, patient did have a Albright catheter placed and an ended up having hematuria secondary to that, he was able to urinate very well, however we will continue to monitor the patient hematuria very closely, if is not better we will ask for urology consultation. 08/11: Patient is sitting up in bed in no apparent distress, he continues to be very hard of hearing, he is using his hearing aids, he continues to have hematuria, I held his aspirin and Eliquis, ask for urology consultation from Dr. Claire, monitor the patient CBC over the next 24 hours, hemoglobin so far is not dropping quite a bit, increase oral intake of fluid, discontinue IV fluid at this time, restart the patient back on his IV diuretics in the next 24 hours. Patient does not appear to be in acute distress at this point in time. 08/12: Patient continues to have significant hematuria, we held his aspirin and Eliquis for the second day in a row, patient was seen earlier by urology, he recommended ultrasound of the abdomen and bladder along with the kidneys, there is a complex mass inside his bladder suggestive of possible mass could not be very well-evaluated due to the patient need to go to the bathroom, patient will stay off his anticoagulation for now, await urology recommendation for possible cystoscopy for further evaluation recommendation at this time. Patient appears to be stable at this time, his hemoglobin did drop a bit today, we will continue to follow the patient very closely. 08/13: Patient continues to have on and off hematuria, he is able to get his urine out, he is complaining of increased pressure in his urine, he denies any fever or chills at this time, I spoke with Dr. Hernandez at this time, he is planning for the patient to go for cystoscopy tomorrow morning likely he has a blood clot in his bladder, this is could be related to traumatic Albright catheterization, patient will be taken to the OR tomorrow morning for cystoscopy and evacuation of the blood clot, we will continue to hold aspirin as well as Eliquis for now, we will monitor the patient during his hospital stay, likely will need to go back to subacute rehabilitation for physical therapy and rehabilitation. 08/14: Patient is laying down in bed in no apparent distress, Albright catheter was inserted yesterday, irrigation of the bladder was done by Dr. Escamilla no evidence of any more bleeding at this time, no evidence of blood clot, we will continue the patient on current treatment plan, restart the patient on aspirin and Eliquis in the next 24 hours if okay with urology, patient will be seen and evaluated by physical therapy tomorrow morning to see if the patient will require subacute rehabilitation or he goes back to his assisted living facility. REVIEW OF SYSTEMS: Constitutional: No documented fever, no chills, no night sweats. No weight change. Positive for weakness, fatigue no lethargy. No daytime sleepiness. HEENT: Positive for headache. Positive blurred vision or double vision, no loss of vision. Positive for loss of Hearing, no ringing in the ears, no dizziness. Positive for nasal crust or congestion. No epistaxis. No sore throat. Lungs: No shortness of breath, no cough, no sputum production. No wheezing. Reports dyspnea with activity. Cardiovascular: No chest pain, no lower extremity edema. No palpitations. No paroxysmal nocturnal dyspnea. No orthopnea. No lightheadedness or dizziness. No syncopal episodes. Abdominal: Reports abdominal pain. No nausea, vomiting. No diarrhea. positive for constipation. No bloody or tarry stools reports loss of appetite. Genitourinary: No dysuria, increased frequency, urgency. No urinary retention. Positive for hematuria. Musculoskeletal: No myalgias. Positive for muscle weakness, no gait dysfunction, no frequent falls. No back pain. No neck pain. Integumentary: no skin rash Neurologic: No aphasia. No facial droop. No change in mentation. No head injury. No headache. No paralysis. No paresthesia. Psychiatric: No depression. No anxiety. No mood swings. Endocrine: No abnormal blood sugars. No weight change. PHYSICAL EXAMINATION: General: this is an 88-year-old male who is sitting up in bed in no distress HEENT: Head is atraumatic, normocephalic, pupils were equal round reactive to light and recommendation, extraocular muscle movement were intact, sclera nonicteric, conjunctivae were pale, mucous membranes of the mouth are somewhat dry. Neck: Supple, no JVP, normal carotid upstroke bilaterally, no lymphadenopathy. Chest: Decreased breath sounds at the bases, few rhonchi, no extremity wheezes, no chest wall tenderness, no intercostal retractions. Heart: First heart sound is normal, second heart sound is normal there is systolic ejection murmur 2/6 located in the left sternal border, there is AICD in the left upper precordium. Abdomen: Soft, nontender, nondistended, positive bowel sounds. there is no hepatosplenomegaly. Extremities: There is no edema no calf tenderness DP +2 bilaterally. Neurologic examination: Patient is awake alert and oriented X 3, cranial nerves II-12 appear grossly intact, muscle power were 4 out of 5 in upper extremities and 4 out of 5 in bilateral lower extremities, deep tendon reflexes normal bilaterally. ASSESSMENT AND PLAN: 1. Acute kidney injury due to poor oral intake of fluid due to acute tubular necrosis and possible vasomotor nephropathy. Patient is back to baseline, I will restart the patient on normal saline at 50 cc an hour. 2. Gross hematuria due to traumatic straith cath post Albright catheter placement by Urology Stay off aspirin and Eliquis for now may resume in AM if no more bleeding 3. Hypertension and hypertensive cardiovascular disease. Continue patient on lisinopril 20 mg orally twice every day, increase Toprol XL 75 mg orally once every day monitor the patient blood pressure very closely. 4. Hyperlipidemia. Continue patient on atorvastatin 80 mg orally once every day. 5. CAD post-PCI with ischemic cardiomyopathy. Continue aspirin 81 mg once every day, metoprolol orally once every day, atorvastatin 80 mg orally once every day, discontinue Lasix and spironolactone for now. 6. ALLERGIC rhinitis. Continue patient on loratadine 10 mg orally once every day. 7. GERD. Continue omeprazole 40 mg orally once every day as well as famotidine 40 mg at bedtime. 8. Constipation. Start the patient on lactulose 20 g orally twice every day, continue Senokot-s 2 tablet orally bedtime may use MiraLAX 17 g in 8 ounces water as needed. 9. Enlarged prostate. Continue tamsulosin 0.4 g orally once every day. 10. Paroxysmal atrial fibrillation. Hold off Eliquis due to bleeding, continue patient on metoprolol ER 75 mg at bedtime. 11. 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 Continue patient on amiodarone 100 mg orally once every day continue metoprolol ER 75 mg at bedtime, patient is following with cardiology on a regular basis. 12. DVT prophylaxis. Bilateral knee-high YOMI hose hold off Eliquis due to bladder mass. 13. GI prophylaxis. Continue PPI. 14. Generalized weakness with balance disorder. Physical therapy evaluation. 15. Likely discharge in AM Objective - Vital Signs Vital signs: Vital Signs Temp 98.0 F 08/15/23 07:50 Pulse 64 08/15/23 07:50 Resp 18 08/15/23 07:50 BP 120/67 08/15/23 07:50 Pulse Ox 91 L 08/15/23 07:50 FiO2 21 08/12/23 11:09 Intake & Output 08/14/23 08/15/23 08/15/23 18:59 06:59 18:59 Intake Total 300 1180 240 Output Total 725 900 Balance -425 280 240 Intake: Intake, IV Titration 300 Amount Sodium Chloride 0.9% 1, 300 000 ml @ 50 mls/hr IV . Q20H [facility] Rx#:[id number] Oral 1180 240 Output: Urine 725 900 Other: Voiding Method Toilet Indwelling Catheter Indwelling Catheter Urinal # Voids 2 2 # Bowel Movements 1 - Labs CBC & Chem 7: 08/15/23 05:39 08/15/23 05:39 Labs: Abnormal Lab Results - Last 24 Hours (Table) 08/15/23 08/15/23 Range/Units 05:39 05:39 RBC 3.20 L (4.40-5.60) X 10*6/uL Hgb 10.4 L (13.0-17.0) g/dL Hct 31.0 L (39.6-50.0) % MCH 32.5 H (27.0-32.0) pg Immature Gran # 0.09 H (0.00-0.04) X 10*3/uL Eosinophils # 0.37 H (0.04-0.35) X 10*3/uL Sodium 134 L (135-145) mmol/L Calcium 8.4 L (8.7-10.3) mg/dL AST 13 L (14-35) U/L ALT 9 L (10-49) U/L Total Protein 5.0 L (6.2-8.2) g/dL Albumin 2.6 L (3.8-4.9) g/dL Albumin/Globulin Ratio 1.08 L (1.60-3.17) Ratio
--- NOTE | 2023-08-15 13:27 | P.PN ---
Subjective Progress Note Date: 08/15/23 Principal diagnosis: Gross hematuria The patient's urine has turned mer[place] in color, but he is reporting increased difficulty voiding. Postvoid residual is approximately 275 cc. Renal ultrasound was unremarkable, though the left kidney was poorly visualized. Echogenic material was seen within the bladder, thought to represent clot. A Albright catheter was inserted yesterday, and the catheter is now draining clear yellow urine. The catheter was irrigated at the time of insertion, but no clots were obtained. Objective - Vital Signs Vital signs: Vital Signs Temp 98.4 F 08/15/23 01:52 Pulse 75 08/15/23 01:52 Resp 16 08/15/23 01:52 BP 121/61 08/15/23 06:20 Pulse Ox 90 L 08/15/23 01:52 FiO2 21 08/12/23 11:09 Intake & Output 08/14/23 08/15/23 08/15/23 18:59 06:59 18:59 Intake Total 300 1180 Output Total 725 900 Balance -425 280 Intake: Intake, IV Titration 300 Amount Sodium Chloride 0.9% 1, 300 000 ml @ 50 mls/hr IV . Q20H [facility] Rx#:[id number] Oral 1180 Output: Urine 725 900 Other: Voiding Method Toilet Indwelling Catheter Urinal # Voids 2 2 # Bowel Movements 1 - Constitutional General appearance: Present: average body habitus, cooperative, no acute distress - Psychiatric Psychiatric: Present: A&O x's 3 - Labs CBC & Chem 7: 08/15/23 05:39 08/15/23 05:39 Labs: Abnormal Lab Results - Last 24 Hours (Table) 08/14/23 08/14/23 Range/Units 04:39 04:39 RBC 3.18 L (4.40-5.60) X 10*6/uL Hgb 10.2 L (13.0-17.0) g/dL Hct 30.7 L (39.6-50.0) % MCH 32.1 H (27.0-32.0) pg Immature Gran # 0.07 H (0.00-0.04) X 10*3/uL Eosinophils # 0.49 H (0.04-0.35) X 10*3/uL Sodium 130 L (135-145) mmol/L Carbon Dioxide 20.8 L (21.6-31.8) mmol/L Calcium 8.3 L (8.7-10.3) mg/dL Total Protein 4.9 L (6.2-8.2) g/dL Albumin 2.7 L (3.8-4.9) g/dL Albumin/Globulin Ratio 1.23 L (1.60-3.17) Ratio Assessment and Plan (1) Gross hematuria Current Visit: Yes Status: Acute Code(s): R31.0 - GROSS HEMATURIA SNOMED Code(s): 986931178 Plan: I would suggest the catheter remain in place for another 24 hours. If the urine is clear tomorrow morning, the catheter may be removed and anticoagulants were resumed. I explained to Mr. Carrillo that echogenic material was seen in the bladder via ultrasound, and that this likely represented clot. However, given that no clot was removed when the catheter was irrigated, it leaves the possibility that the irregularity seen on ultrasound was the result of a bladder tumor. Given this, arrangements will be made for him to undergo outpatient cystoscopy to rule out intravesical pathology.
[2023-08-16 08:37] LABS: Basophils % (A) 1.1 %; Eosinophils # (A) 0.58 X 10*3/uL (0.04-0.35); Eosinophils % (A) 6.5 %; HGB 10.1 g/dL (13.0-17.0); Lymphocytes # (A) 1.32 X 10*3/uL (0.90-5.00); Lymphocytes % (A) 14.7 %; MCH 31.5 pg (27.0-32.0); MCHC 31.6 g/dL (32.0-37.0); MCV 99.7 FL (80.0-97.0); Mean Platelet Volume 10.4 FL (9.5-12.2); Monocytes # (A) 0.76 X 10*3/uL (0.20-1.00); Monocytes % (A) 8.5 %; NRBC Per 100 WBC 0 X 10*3/uL (0.00-0.01); Neutrophils # (A) 6.13 X 10*3/uL (1.80-7.70); Neutrophils % (A) 68.2 %; Platelet Count 278 X 10*3/uL (140-440); RBC 3.21 X 10*6/uL (4.40-5.60); RDW 13.2 % (11.5-14.5); WBC 8.98 X 10*3/uL (4.50-10.00)
[2023-08-16 09:00] LABS: ALT 8 U/L (10-49); AST 15 U/L (14-35); Albumin 2.6 g/dL (3.8-4.9); Albumin/Globulin Ratio 1.08 Ratio (1.60-3.17); Alkaline Phosphatase 87 U/L (41-126); BUN/Creat Ratio 14.88 Ratio (12.00-20.00); Blood Urea Nitrogen 11.9 mg/dL (9.0-27.0); Calcium 8.4 mg/dL (8.7-10.3); Carbon Dioxide 23.5 mmol/L (21.6-31.8); Chloride 104 mmol/L (96-109); Globulin 2.4 g/dL (1.6-3.3); Glucose 94 mg/dL (70-110); Potassium 4.5 mmol/L (3.5-5.5); Sodium 135 mmol/L (135-145); Total Bilirubin 0.3 mg/dL (0.3-1.2)
--- NOTE | 2023-08-16 09:02 | P.PN ---
Subjective Progress Note Date: 08/16/23 the patient had catheter placement and clot evacuation by Dr Escamilla . He is asx and the urine is clear. Objective - Vital Signs Vital signs: Vital Signs Temp 98.1 F 08/16/23 07:07 Pulse 60 08/16/23 07:07 Resp 16 08/16/23 07:07 BP 148/73 08/16/23 07:07 Pulse Ox 96 08/16/23 07:07 FiO2 21 08/12/23 11:09 Intake & Output 08/15/23 08/16/23 08/16/23 18:59 06:59 18:59 Intake Total 240 Output Total 1600 725 Balance -1360 -725 Intake: Oral 240 Output: Urine 1600 725 Uretheral (Albright) 800 Other: Voiding Method Indwelling Catheter Indwelling Catheter - Labs CBC & Chem 7: 08/16/23 05:32 08/15/23 05:39 Labs: Abnormal Lab Results - Last 24 Hours (Table) 08/15/23 08/15/23 08/16/23 Range/Units 05:39 05:39 05:32 RBC 3.20 L 3.21 L (4.40-5.60) X 10*6/uL Hgb 10.4 L 10.1 L (13.0-17.0) g/dL Hct 31.0 L 32.0 L (39.6-50.0) % MCV 99.7 H (80.0-97.0) FL MCH 32.5 H (27.0-32.0) pg MCHC 31.6 L (32.0-37.0) g/dL Immature Gran # 0.09 H 0.09 H (0.00-0.04) X 10*3/uL Eosinophils # 0.37 H 0.58 H (0.04-0.35) X 10*3/uL Sodium 134 L (135-145) mmol/L Calcium 8.4 L (8.7-10.3) mg/dL AST 13 L (14-35) U/L ALT 9 L (10-49) U/L Total Protein 5.0 L (6.2-8.2) g/dL Albumin 2.6 L (3.8-4.9) g/dL Albumin/Globulin Ratio 1.08 L (1.60-3.17) Ratio Assessment and Plan Assessment: Impression: gross hematuria with clot evacuation and cath placement Plan:the cath can be removed when medically stable. He should fu with Dr Escamilla for cystoscopy in the future.
--- NOTE | 2023-08-16 19:18 | P.PN ---
Subjective Progress Note Date: 08/16/23 HISTORY OF PRESENT ILLNESS: This is an 88-year-old male with a previous medical history signifi cant for hypertension and hypertensive cardio vascular disease, hyperlipidemia, paroxysmal atrial fibrillation, coronary artery disease with ischemic cardiomyopathy, enlarged prostate, history of AICD, patient presented to the emergency department at [facility] yesterday because of increased fatigue and generalized weakness, not able to eat and drink much, he was found to have a minimal acute kidney injury due to poor oral intake of fluid, patient was evaluated in the emergency department, he was started on IV fluid resuscitation in the form of normal saline at 50 cc an hour, he was admitted to the hospital for further evaluation and recommendation, patient did have a Albright catheter placed and an ended up having hematuria secondary to that, he was able to urinate very well, however we will continue to monitor the patient hematuria very closely, if is not better we will ask for urology consultation. 08/11: Patient is sitting up in bed in no apparent distress, he continues to be very hard of hearing, he is using his hearing aids, he continues to have hematuria, I held his aspirin and Eliquis, ask for urology consultation from Dr. Claire, monitor the patient CBC over the next 24 hours, hemoglobin so far is not dropping quite a bit, increase oral intake of fluid, discontinue IV fluid at this time, restart the patient back on his IV diuretics in the next 24 hours. Patient does not appear to be in acute distress at this point in time. 08/12: Patient continues to have significant hematuria, we held his aspirin and Eliquis for the second day in a row, patient was seen earlier by urology, he recommended ultrasound of the abdomen and bladder along with the kidneys, there is a complex mass inside his bladder suggestive of possible mass could not be very well-evaluated due to the patient need to go to the bathroom, patient will stay off his anticoagulation for now, await urology recommendation for possible cystoscopy for further evaluation recommendation at this time. Patient appears to be stable at this time, his hemoglobin did drop a bit today, we will continue to follow the patient very closely. 08/13: Patient continues to have on and off hematuria, he is able to get his urine out, he is complaining of increased pressure in his urine, he denies any fever or chills at this time, I spoke with Dr. Hernandez at this time, he is planning for the patient to go for cystoscopy tomorrow morning likely he has a blood clot in his bladder, this is could be related to traumatic Albright catheterization, patient will be taken to the OR tomorrow morning for cystoscopy and evacuation of the blood clot, we will continue to hold aspirin as well as Eliquis for now, we will monitor the patient during his hospital stay, likely will need to go back to subacute rehabilitation for physical therapy and rehabilitation. 08/14: Patient is laying down in bed in no apparent distress, Albright catheter was inserted yesterday, irrigation of the bladder was done by Dr. Escamilla no evidence of any more bleeding at this time, no evidence of blood clot, we will continue the patient on current treatment plan, restart the patient on aspirin and Eliquis in the next 24 hours if okay with urology, patient will be seen and evaluated by physical therapy tomorrow morning to see if the patient will require subacute rehabilitation or he goes back to his assisted living facility. 08/15: Patient is sitting up in the recliner he continues to have a Albright catheter in place, he was seen earlier by urology, we will keep the Albright catheter for another 24 hours, start the patient back on Eliquis 5 mg orally twice every day, physical therapy evaluation, I will switch the patient to inpatient, patient will likely be discharged home in the next 24 hours. I will check urinalysis since the patient is complaining of increased burning sensation. REVIEW OF SYSTEMS: Constitutional: No documented fever, no chills, no night sweats. No weight change. Positive for weakness, fatigue no lethargy. No daytime sleepiness. HEENT: Positive for headache. Positive blurred vision or double vision, no loss of vision. Positive for loss of Hearing, no ringing in the ears, no dizziness. Positive for nasal crust or congestion. No epistaxis. No sore throat. Lungs: No shortness of breath, no cough, no sputum production. No wheezing. Reports dyspnea with activity. Cardiovascular: No chest pain, no lower extremity edema. No palpitations. No paroxysmal nocturnal dyspnea. No orthopnea. No lightheadedness or dizziness. No syncopal episodes. Abdominal: Reports abdominal pain. No nausea, vomiting. No diarrhea. positive for constipation. No bloody or tarry stools reports loss of appetite. Genitourinary: No dysuria, increased frequency, urgency. No urinary retention. Positive for hematuria. Musculoskeletal: No myalgias. Positive for muscle weakness, no gait dysfunction, no frequent falls. No back pain. No neck pain. Integumentary: no skin rash Neurologic: No aphasia. No facial droop. No change in mentation. No head injury. No headache. No paralysis. No paresthesia. Psychiatric: No depression. No anxiety. No mood swings. Endocrine: No abnormal blood sugars. No weight change. PHYSICAL EXAMINATION: General: this is an 88-year-old male who is sitting up in bed in no distress HEENT: Head is atraumatic, normocephalic, pupils were equal round reactive to light and recommendation, extraocular muscle movement were intact, sclera nonicteric, conjunctivae were pale, mucous membranes of the mouth are somewhat dry. Neck: Supple, no JVP, normal carotid upstroke bilaterally, no lymphadenopathy. Chest: Decreased breath sounds at the bases, few rhonchi, no extremity wheezes, no chest wall tenderness, no intercostal retractions. Heart: First heart sound is normal, second heart sound is normal there is systolic ejection murmur 2/6 located in the left sternal border, there is AICD in the left upper precordium. Abdomen: Soft, nontender, nondistended, positive bowel sounds. there is no hepatosplenomegaly. Extremities: There is no edema no calf tenderness DP +2 bilaterally. Neurologic examination: Patient is awake alert and oriented X 3, cranial nerves II-12 appear grossly intact, muscle power were 4 out of 5 in upper extremities and 4 out of 5 in bilateral lower extremities, deep tendon reflexes normal bilaterally. ASSESSMENT AND PLAN: 1. Acute kidney injury due to poor oral intake of fluid due to acute tubular necrosis and possible vasomotor nephropathy. Discontinue IV fluid. 2. Gross hematuria due to traumatic straith cath post Albright catheter placement by Urology restart the patient back on Eliquis 5 mg orally twice every day, if there is no bleeding Albright catheter will be removed tomorrow morning. 3. Hypertension and hypertensive cardiovascular disease. Continue patient on lisinopril 20 mg orally twice every day, increase Toprol XL 75 mg orally once every day monitor the patient blood pressure very closely. 4. Hyperlipidemia. Continue patient on atorvastatin 80 mg orally once every day. 5. CAD post-PCI with ischemic cardiomyopathy. , metoprolol orally once every day, atorvastatin 80 mg orally once every day, restart the patient on Lasix 20 mg once every day as well as spironolactone 12.5 mg orally once every day. 6. ALLERGIC rhinitis. Continue patient on loratadine 10 mg orally once every day. 7. GERD. Continue omeprazole 40 mg orally once every day as well as famotidine 40 mg at bedtime. 8. Constipation. Start the patient on lactulose 20 g orally twice every day, continue Senokot-s 2 tablet orally bedtime may use MiraLAX 17 g in 8 ounces water as needed. 9. Enlarged prostate. Continue tamsulosin 0.4 g orally once every day. 10. Paroxysmal atrial fibrillation. Restart Eliquis 5 mg orally twice every day, continue patient on metoprolol ER 75 mg at bedtime. 11. 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 Continue patient on amiodarone 100 mg orally once every day continue metoprolol ER 75 mg at bedtime, patient is following with cardiology on a regular basis. 12. DVT prophylaxis. Bilateral knee-high YOMI hose restart the patient back on Eliquis 5 mg orally twice every day. 13. GI prophylaxis. Continue PPI. 14. Generalized weakness with balance disorder. Physical therapy evaluation. 15. Hopefully discontinue Albright catheter tomorrow morning and discharge home in the morning. Objective - Vital Signs Vital signs: Vital Signs Temp 98.3 F 08/16/23 11:45 Pulse 60 08/16/23 11:45 Resp 16 08/16/23 11:45 BP 112/65 08/16/23 11:45 Pulse Ox 93 L 08/16/23 11:45 FiO2 21 08/12/23 11:09 Intake & Output 08/15/23 08/16/23 08/16/23 18:59 06:59 18:59 Intake Total 240 Output Total 1600 725 Balance -1360 -725 Intake: Oral 240 Output: Urine 1600 725 Uretheral (Albright) 800 Other: Voiding Method Indwelling Catheter Indwelling Catheter Indwelling Catheter - Labs CBC & Chem 7: 08/16/23 05:32 08/16/23 05:32 Labs: Abnormal Lab Results - Last 24 Hours (Table) 08/16/23 08/16/23 Range/Units 05:32 05:32 RBC 3.21 L (4.40-5.60) X 10*6/uL Hgb 10.1 L (13.0-17.0) g/dL Hct 32.0 L (39.6-50.0) % MCV 99.7 H (80.0-97.0) FL MCHC 31.6 L (32.0-37.0) g/dL Immature Gran # 0.09 H (0.00-0.04) X 10*3/uL Eosinophils # 0.58 H (0.04-0.35) X 10*3/uL Calcium 8.4 L (8.7-10.3) mg/dL ALT 8 L (10-49) U/L Total Protein 5.0 L (6.2-8.2) g/dL Albumin 2.6 L (3.8-4.9) g/dL Albumin/Globulin Ratio 1.08 L (1.60-3.17) Ratio
[2023-08-16] MEDS: APIXABAN 5 MG TAB PO SCH (21:08)
[2023-08-17 04:13] LABS: Amorphous Sediment,Urine Rare /hpf; Appearance,Urine Turbid (Clear); Bilirubin,Urine Negative (Negative); Blood,Urine Small (Negative); Color,Urine Light Yellow; Glucose,Urine (UA) Negative (Negative); Ketones,Urine Negative (Negative); Leukocyte Esterase,Urine Large (Negative); Nitrite,Urine Negative (Negative); Protein,Urine 1+ (Negative); RBC,Urine 31 /hpf (0-5); Specific Gravity,Urine 1.014 (1.001-1.035); WBC,Urine >182 /hpf (0-5)
[2023-08-17] MEDS: SPIRONOLACTONE 25 MG TAB PO SCH (09:25)
[2023-08-17] MEDS: FUROSEMIDE 20 MG TAB PO SCH (09:25)
[2023-08-17 11:39] LABS: Basophils # (A) 0.08 X 10*3/uL (0.00-0.10); Basophils % (A) 0.8 %; Eosinophils # (A) 0.56 X 10*3/uL (0.04-0.35); Eosinophils % (A) 5.7 %; HCT 34.1 % (39.6-50.0); HGB 10.8 g/dL (13.0-17.0); Lymphocytes # (A) 1.38 X 10*3/uL (0.90-5.00); Lymphocytes % (A) 14.1 %; MCHC 31.7 g/dL (32.0-37.0); MCV 100.9 FL (80.0-97.0); Mean Platelet Volume 10.3 FL (9.5-12.2); Monocytes # (A) 0.67 X 10*3/uL (0.20-1.00); Monocytes % (A) 6.9 %; NRBC Per 100 WBC 0 X 10*3/uL (0.00-0.01); Neutrophils # (A) 6.99 X 10*3/uL (1.80-7.70); Neutrophils % (A) 71.5 %; Platelet Count 309 X 10*3/uL (140-440); RBC 3.38 X 10*6/uL (4.40-5.60); RDW 13.3 % (11.5-14.5); WBC 9.78 X 10*3/uL (4.50-10.00)
[2023-08-17 12:12] LABS: ALT 10 U/L (10-49); AST 16 U/L (14-35); Albumin 2.6 g/dL (3.8-4.9); Albumin/Globulin Ratio 0.93 Ratio (1.60-3.17); Alkaline Phosphatase 100 U/L (41-126); Blood Urea Nitrogen 11.6 mg/dL (9.0-27.0); Calcium 8.9 mg/dL (8.7-10.3); Carbon Dioxide 23.4 mmol/L (21.6-31.8); Chloride 104 mmol/L (96-109); Globulin 2.8 g/dL (1.6-3.3); Glucose 106 mg/dL (70-110); Potassium 4.7 mmol/L (3.5-5.5); Sodium 136 mmol/L (135-145); Total Bilirubin 0.4 mg/dL (0.3-1.2); Total Protein 5.4 g/dL (6.2-8.2)
--- NOTE | 2023-08-17 12:34 | CDI ---
Documentation Clarification Form Date: 08/17/2023 12:18:13 PM From: Clare Cruz RN CCDS Phone: [phone] Admit Date: 08/10/2023 06:55:00 PM Patient Name: Didier Carrillo Visit Number: [id number] Discharge Date: ATTENTION: The Clinical Documentation Specialists (CDI) and [facility] Coding Staff appreciate your assistance in clarifying documentation. Please respond to the clarification below the line at the bottom and electronically sign. The CDI & [facility] Coding staff will review the response and follow-up if needed. Please note: Queries are made part of the Legal Health Record. If you have any questions, please contact the author of this message via ITS. Dr. Oskar Rowland Your patient has the documented diagnosis of unspecified CHF . Additional information regarding the type, acuity of CHF is requested. History/Risk Factors: 88 year old male presents to the ED for increased fatigue and generalized weakness. Medical History: CHF, CAD, HLD, HTN and Paroxysmal atrial fibrillation. . Clinical Indicators: VS/Pulse OX, 08/09 B/P114/67; HR 64; RR 18; SpO 92% ra BNP:08/09: 886 Echocardiogram Results, 05/23/2023: Severe lV systolic dysfunction with an ejection fraction of 25%. Mild arotic regurgitation. Mild aortic regurgitation. Mildly dilated aortic root Chest X Ray: 08/09 Chronic pulmonary venous congestion without overt failure Treatment: 08/10 Troprol X 75mg po HSl; 08/12 08/13 Lasix 20mg po daily; 08/12 08/13 Aldactone 12.5mg po daily; 08/16 Lasix 20mg po daily; 08/16 Aldactone 25mg po daily In your professional opinion, can you please clarify the acuity and type of CHF if known? [x ] Chronic Systolic Heart Failure (reduced EF) [ ] Other, please specify [ ] Unable to determine (Template Last Revised: March 2020) MTDD
[2023-08-17 14:48] VITALS: BMI 28.1
--- NOTE | 2023-08-17 19:52 | P.PN ---
Subjective Progress Note Date: 08/17/23 HISTORY OF PRESENT ILLNESS: This is an 88-year-old male with a previous medical history signifi cant for hypertension and hypertensive cardio vascular disease, hyperlipidemia, paroxysmal atrial fibrillation, coronary artery disease with ischemic cardiomyopathy, enlarged prostate, history of AICD, patient presented to the emergency department at [facility] yesterday because of increased fatigue and generalized weakness, not able to eat and drink much, he was found to have a minimal acute kidney injury due to poor oral intake of fluid, patient was evaluated in the emergency department, he was started on IV fluid resuscitation in the form of normal saline at 50 cc an hour, he was admitted to the hospital for further evaluation and recommendation, patient did have a Albright catheter placed and an ended up having hematuria secondary to that, he was able to urinate very well, however we will continue to monitor the patient hematuria very closely, if is not better we will ask for urology consultation. 08/11: Patient is sitting up in bed in no apparent distress, he continues to be very hard of hearing, he is using his hearing aids, he continues to have hematuria, I held his aspirin and Eliquis, ask for urology consultation from Dr. Claire, monitor the patient CBC over the next 24 hours, hemoglobin so far is not dropping quite a bit, increase oral intake of fluid, discontinue IV fluid at this time, restart the patient back on his IV diuretics in the next 24 hours. Patient does not appear to be in acute distress at this point in time. 08/12: Patient continues to have significant hematuria, we held his aspirin and Eliquis for the second day in a row, patient was seen earlier by urology, he recommended ultrasound of the abdomen and bladder along with the kidneys, there is a complex mass inside his bladder suggestive of possible mass could not be very well-evaluated due to the patient need to go to the bathroom, patient will stay off his anticoagulation for now, await urology recommendation for possible cystoscopy for further evaluation recommendation at this time. Patient appears to be stable at this time, his hemoglobin did drop a bit today, we will continue to follow the patient very closely. 08/13: Patient continues to have on and off hematuria, he is able to get his urine out, he is complaining of increased pressure in his urine, he denies any fever or chills at this time, I spoke with Dr. Hernandez at this time, he is planning for the patient to go for cystoscopy tomorrow morning likely he has a blood clot in his bladder, this is could be related to traumatic Albright catheterization, patient will be taken to the OR tomorrow morning for cystoscopy and evacuation of the blood clot, we will continue to hold aspirin as well as Eliquis for now, we will monitor the patient during his hospital stay, likely will need to go back to subacute rehabilitation for physical therapy and rehabilitation. 08/14: Patient is laying down in bed in no apparent distress, Albright catheter was inserted yesterday, irrigation of the bladder was done by Dr. Escamilla no evidence of any more bleeding at this time, no evidence of blood clot, we will continue the patient on current treatment plan, restart the patient on aspirin and Eliquis in the next 24 hours if okay with urology, patient will be seen and evaluated by physical therapy tomorrow morning to see if the patient will require subacute rehabilitation or he goes back to his assisted living facility. 08/15: Patient is sitting up in the recliner he continues to have a Albright catheter in place, he was seen earlier by urology, we will keep the Albright catheter for another 24 hours, start the patient back on Eliquis 5 mg orally twice every day, physical therapy evaluation, I will switch the patient to inpatient, patient will likely be discharged home in the next 24 hours. I will check urinalysis since the patient is complaining of increased burning sensation. 08/16: Patient is laying down in bed in no apparent distress, he denies any chest pain, he has no shortness of breath, he was taken off IV fluid resuscitation yesterday, he continues to have Albright catheter in place, his urinalysis appears to be grossly abnormal, it was sent for culture, this is likely catheter associated urinary tract infection, urine culture is still pending, start the patient on ceftriaxone 2 g IV piggyback every 24 hours, hopefully will be able to switch the patient to oral Ceftin for 500 mg orally twice every day for the next 7 days and can send him home tomorrow morning. Discontinue Albright catheterization as instead monitor the patient postvoid residual call if his residuals greater than 250 mL. REVIEW OF SYSTEMS: Constitutional: No documented fever, no chills, no night sweats. No weight change. Positive for weakness, fatigue no lethargy. No daytime sleepiness. HEENT: Positive for headache. Positive blurred vision or double vision, no loss of vision. Positive for loss of Hearing, no ringing in the ears, no dizziness. Positive for nasal crust or congestion. No epistaxis. No sore throat. Lungs: No shortness of breath, no cough, no sputum production. No wheezing. Reports dyspnea with activity. Cardiovascular: No chest pain, no lower extremity edema. No palpitations. No paroxysmal nocturnal dyspnea. No orthopnea. No lightheadedness or dizziness. No syncopal episodes. Abdominal: Reports abdominal pain. No nausea, vomiting. No diarrhea. positive for constipation. No bloody or tarry stools reports loss of appetite. Genitourinary: No dysuria, increased frequency, urgency. No urinary retention. Positive for hematuria. Musculoskeletal: No myalgias. Positive for muscle weakness, no gait dysfunction, no frequent falls. No back pain. No neck pain. Integumentary: no skin rash Neurologic: No aphasia. No facial droop. No change in mentation. No head injury. No headache. No paralysis. No paresthesia. Psychiatric: No depression. No anxiety. No mood swings. Endocrine: No abnormal blood sugars. No weight change. PHYSICAL EXAMINATION: General: this is an 88-year-old male who is sitting up in bed in no distress HEENT: Head is atraumatic, normocephalic, pupils were equal round reactive to light and recommendation, extraocular muscle movement were intact, sclera nonicteric, conjunctivae were pale, mucous membranes of the mouth are somewhat dry. Neck: Supple, no JVP, normal carotid upstroke bilaterally, no lymphadenopathy. Chest: Decreased breath sounds at the bases, few rhonchi, no extremity wheezes, no chest wall tenderness, no intercostal retractions. Heart: First heart sound is normal, second heart sound is normal there is systolic ejection murmur 2/6 located in the left sternal border, there is AICD in the left upper precordium. Abdomen: Soft, nontender, nondistended, positive bowel sounds. there is no hepatosplenomegaly. Extremities: There is no edema no calf tenderness DP +2 bilaterally. Neurologic examination: Patient is awake alert and oriented X 3, cranial nerves II-12 appear grossly intact, muscle power were 4 out of 5 in upper extremities and 4 out of 5 in bilateral lower extremities, deep tendon reflexes normal bilaterally. ASSESSMENT AND PLAN: 1. Acute kidney injury due to poor oral intake of fluid due to acute tubular necrosis and possible vasomotor nephropathy. Appears to be back to baseline at this time. 2. Gross hematuria due to traumatic straith cath post Albright catheter placement by Urology restart the patient back on Eliquis 5 mg orally twice every day, discontinue Albright catheter monitor postvoid residual. 3. Hypertension and hypertensive cardiovascular disease. Continue patient on lisinopril 20 mg orally twice every day, increase Toprol XL 75 mg orally once every day monitor the patient blood pressure very closely. 4. Hyperlipidemia. Continue patient on atorvastatin 80 mg orally once every day. 5. CAD post-PCI with ischemic cardiomyopathy. , metoprolol orally once every day, atorvastatin 80 mg orally once every day, restart the patient on Lasix 20 mg once every day as well as spironolactone 12.5 mg orally once every day. 6. ALLERGIC rhinitis. Continue patient on loratadine 10 mg orally once every day. 7. GERD. Continue omeprazole 40 mg orally once every day as well as famotidine 40 mg at bedtime. 8. Constipation. Start the patient on lactulose 20 g orally twice every day, continue Senokot-s 2 tablet orally bedtime may use MiraLAX 17 g in 8 ounces water as needed. 9. Enlarged prostate. Continue tamsulosin 0.4 g orally once every day. 10. Paroxysmal atrial fibrillation. Restart Eliquis 5 mg orally twice every day, continue patient on metoprolol ER 75 mg at bedtime. 11. 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 Continue patient on amiodarone 100 mg orally once every day continue metoprolol ER 75 mg at bedtime, patient is following with cardiology on a regular basis. 12. DVT prophylaxis. Bilateral knee-high YOMI hose restart the patient back on Eliquis 5 mg orally twice every day. 13. GI prophylaxis. Continue PPI. 14. Generalized weakness with balance disorder. Physical therapy evaluation. 15. catheter associated urinary tract infection. Urine culture still pending, started the patient on ceftriaxone 2 g piggyback every 24 hours, hopefully will be able to switch the patient to oral Ceftin In the next 24 hours and he can be discharged home after that. 16. Discharge patient [facility] assisted [facility] tomorrow morning. Objective - Vital Signs Vital signs: Vital Signs Temp 97.5 F L 08/17/23 18:47 Pulse 93 08/17/23 18:47 Resp 16 08/17/23 18:47 BP 133/75 08/17/23 18:47 Pulse Ox 94 L 08/17/23 18:47 FiO2 21 08/12/23 11:09 Intake & Output 08/17/23 08/17/23 08/18/23 06:59 18:59 06:59 Intake Total 118 Output Total 700 1250 Balance -700 -1132 Weight 83.915 kg Intake: Oral 118 Output: Urine 700 1250 Uretheral (Albright) 700 Other: Voiding Method Indwelling Catheter Urinal # Voids 2 # Bowel Movements 1 - Labs CBC & Chem 7: 08/17/23 06:56 08/17/23 06:56 Labs: Abnormal Lab Results - Last 24 Hours (Table) 08/17/23 08/17/23 08/17/23 Range/Units 03:05 06:56 06:56 RBC 3.38 L (4.40-5.60) X 10*6/uL Hgb 10.8 L (13.0-17.0) g/dL Hct 34.1 L (39.6-50.0) % MCV 100.9 H (80.0-97.0) FL MCHC 31.7 L (32.0-37.0) g/dL Immature Gran # 0.10 H (0.00-0.04) X 10*3/uL Eosinophils # 0.56 H (0.04-0.35) X 10*3/uL Total Protein 5.4 L (6.2-8.2) g/dL Albumin 2.6 L (3.8-4.9) g/dL Albumin/Globulin Ratio 0.93 L (1.60-3.17) Ratio Urine Protein 1+ H (Negative) Urine Blood Small H (Negative) Ur Leukocyte Esterase Large H (Negative) Urine RBC 31 H (0-5) /hpf Urine WBC >182 H (0-5) /hpf Amorphous Sediment Rare H (None) /hpf
[2023-08-18 12:47] VITALS: BP 145/76; PULSE 60; RESP 17; TEMP 97.4
--- NOTE | 2023-08-18 15:20 | P.DS ---
Providers Date of admission: 08/10/23 18:55 Expected date of discharge: 08/18/23 Attending physician: Oskar Rowland Consults: 08/12/23 09:28 Consult Physician Urgent Consulting Provider: Claude Escamilla Consult Reason/Comments: hematuria, blood clots Do you want consulting provider notified?: Yes Primary care physician: Oskar Rowland Hospital Course: HISTORY OF PRESENT ILLNESS: This is an 88-year-old male with a previous medical history significant for hypertension and hypertensive cardio vascular disease, hyperlipidemia, paroxysmal atrial fibrillation, coronary artery disease with ischemic cardiomyopathy, enlarged prostate, history of AICD, patient presented to the emergency department at [facility] yesterday because of increased fatigue and generalized weakness, not able to eat and drink much, he was found to have a minimal acute kidney injury due to poor oral intake of fluid, patient was evaluated in the emergency department, he was started on IV fluid resuscitation in the form of normal saline at 50 cc an hour, he was admitted to the hospital for further evaluation and recommendation, patient did have a Albright catheter placed and an ended up having hematuria secondary to that, he was able to urinate very well, however we will continue to monitor the patient hematuria very closely, if is not better we will ask for urology consultation. 08/11: Patient is sitting up in bed in no apparent distress, he continues to be very hard of hearing, he is using his hearing aids, he continues to have hematuria, I held his aspirin and Eliquis, ask for urology consultation from Dr. Claire, monitor the patient CBC over the next 24 hours, hemoglobin so far is not dropping quite a bit, increase oral intake of fluid, discontinue IV fluid at this time, restart the patient back on his IV diuretics in the next 24 hours. Patient does not appear to be in acute distress at this point in time. 08/12: Patient continues to have significant hematuria, we held his aspirin and Eliquis for the second day in a row, patient was seen earlier by urology, he recommended ultrasound of the abdomen and bladder along with the kidneys, there is a complex mass inside his bladder suggestive of possible mass could not be very well-evaluated due to the patient need to go to the bathroom, patient will stay off his anticoagulation for now, await urology recommendation for possible cystoscopy for further evaluation recommendation at this time. Patient appears to be stable at this time, his hemoglobin did drop a bit today, we will continue to follow the patient very closely. 08/13: Patient continues to have on and off hematuria, he is able to get his urine out, he is complaining of increased pressure in his urine, he denies any fever or chills at this time, I spoke with Dr. Hernandez at this time, he is planning for the patient to go for cystoscopy tomorrow morning likely he has a blood clot in his bladder, this is could be related to traumatic Albright catheterization, patient will be taken to the OR tomorrow morning for cystoscopy and evacuation of the blood clot, we will continue to hold aspirin as well as Eliquis for now, we will monitor the patient during his hospital stay, likely will need to go back to subacute rehabilitation for physical therapy and rehabilitation. 08/14: Patient is laying down in bed in no apparent distress, Albright catheter was inserted yesterday, irrigation of the bladder was done by Dr. Escamilla no evidence of any more bleeding at this time, no evidence of blood clot, we will continue the patient on current treatment plan, restart the patient on aspirin and Eliquis in the next 24 hours if okay with urology, patient will be seen and evaluated by physical therapy tomorrow morning to see if the patient will require subacute rehabilitation or he goes back to his assisted living facility. 08/15: Patient is sitting up in the recliner he continues to have a Albright catheter in place, he was seen earlier by urology, we will keep the Albright catheter for another 24 hours, start the patient back on Eliquis 5 mg orally twice every day, physical therapy evaluation, I will switch the patient to inpatient, patient will likely be discharged home in the next 24 hours. I will check urinalysis since the patient is complaining of increased burning sensation. 08/16: Patient is laying down in bed in no apparent distress, he denies any chest pain, he has no shortness of breath, he was taken off IV fluid resuscitation yesterday, he continues to have Albright catheter in place, his urinalysis appears to be grossly abnormal, it was sent for culture, this is likely catheter associated urinary tract infection, urine culture is still pending, start the patient on ceftriaxone 2 g IV piggyback every 24 hours, hopefully will be able to switch the patient to oral Ceftin for 500 mg orally twice every day for the next 7 days and can send him home tomorrow morning. Discontinue Albright catheterization as instead monitor the patient postvoid residual call if his residuals greater than 250 mL. 08/17: Patient is doing better today, he denies any chest pain, shortness of breath, he is able to void, he has no hematuria at this time, we will continue current treatment plan, urine culture is showing gram-negative bacilli, no final sensitivity panel yet, I will switch the patient to oral Ceftin 500 mg orally twice every day for the next 7 days, and we will follow-up with the cultures and outpatient. Discharge diagnoses : 1. Acute kidney injury due to poor oral intake of fluid due to acute tubular necrosis and possible vasomotor nephropathy. 2. Gross hematuria due to traumatic straith cath post Albright catheter placement by Urology and removal. 3. Hypertension and hypertensive cardiovascular disease. 4. Hyperlipidemia. 5. CAD post-PCI with ischemic cardiomyopathy. 6. ALLERGIC rhinitis. 7. GERD. 8. Constipation. 9. Enlarged prostate. 10. Paroxysmal atrial fibrillation. 11. 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 14. Generalized weakness with balance disorder. 15. catheter associated urinary tract infection. . Patient Condition at Discharge: Stable Plan - Discharge Summary New Discharge Prescriptions: No Action Spironolactone [Aldactone] 12.5 mg PO DAILY@0700 Aspirin [Adult Low Dose Aspirin EC] 81 mg PO DAILY@0700 Metoprolol Succinate (ER) [Toprol XL] 75 mg PO HS@1900 Acetaminophen Tab [Tylenol] 650 mg PO Q6H PRN PRN Reason: Mild Pain (Scale 1 To 3) Baclofen [Lioresal] 5 mg PO DAILY PRN tab PRN Reason: Spasms Arthritis Pain Relief Roll-On 1 applic TOPICAL DAILY PRN PRN Reason: Pain polyethylene glycoL 3350 [Miralax] 17 gm PO DAILY@0700 Sennosides [Senokot] 8.6 mg PO BID@0700,1900 lisinopriL [Zestril] 20 mg PO DAILY@0700 Furosemide [Lasix] 20 mg PO DAILY@0700 Cbdigest 1 cap PO HS@1900 Amiodarone [Cordarone] 100 mg PO DAILY@0700 Atorvastatin [Lipitor] 80 mg PO HS@1900 Nitroglycerin 0.4 mg SL Q5M PRN PRN Reason: Chest Pain Lactulose [Cephulac] 20 gm PO TID PRN ml PRN Reason: Constipation HYDROcodone/APAP 5-325MG [[place] 5-325] 1 tab PO BID PRN PRN Reason: Pain Omeprazole 40 mg PO AC-BRKFST@0700 Montelukast Sodium 10 mg PO DAILY@0700 Levocetirizine Dihydrochloride [Xyzal] 5 mg PO HS@1899 Fluticasone Nasal Garita [Flonase Nasal Garita] 2 spray EA NOSTRIL DAILY@1899 Apixaban [Eliquis] 5 mg PO BID@0700,190 Discharge Medication List Spironolactone [Aldactone] 12.5 mg PO DAILY@0712/03/16 [History] Aspirin [Adult Low Dose Aspirin EC] 81 mg PO DAILY@0711/16/17 [History] Atorvastatin [Lipitor] 80 mg PO HS@19003/03/21 [History] Nitroglycerin 0.4 mg SL Q5M PRN 09/28/22 [History] Metoprolol Succinate (ER) [Toprol XL] 75 mg PO HS@19011/13/22 [History] Acetaminophen Tab [Tylenol] 650 mg PO Q6H PRN 05/22/23 [History] Baclofen [Lioresal] 5 mg PO DAILY PRN tab 05/26/23 [Rx] Lactulose [Cephulac] 20 gm PO TID PRN ml 05/26/23 [Rx] Amiodarone [Cordarone] 100 mg PO DAILY@0708/10/23 [History] Apixaban [Eliquis] 5 mg PO BID@0700,19008/10/23 [History] Arthritis Pain Relief Roll-On 1 applic TOPICAL DAILY PRN 08/10/23 [History] Cbdigest 1 cap PO HS@189908/10/23 [History] Fluticasone Nasal Garita [Flonase Nasal Garita] 2 spray EA NOSTRIL DAILY@189908/10/23 [History] Furosemide [Lasix] 20 mg PO DAILY@0708/10/23 [History] HYDROcodone/APAP 5-325MG [[place] 5-325] 1 tab PO BID PRN 08/10/23 [History] Levocetirizine Dihydrochloride [Xyzal] 5 mg PO HS@19008/10/23 [History] Montelukast Sodium 10 mg PO DAILY@69908/10/23 [History] Omeprazole 40 mg PO AC-BRKFST@69908/10/23 [History] Sennosides [Senokot] 8.6 mg PO BID@0700,19008/10/23 [History] lisinopriL [Zestril] 20 mg PO DAILY@69908/10/23 [History] polyethylene glycoL 3350 [Miralax] 17 gm PO DAILY@69908/10/23 [History] Follow up Appointment(s)/Referral(s): Oskar Rowland MD [Primary Care Provider] - 1-2 days Claude Escamilla MD [STAFF PHYSICIAN] - 3 Weeks Activity/Diet/Wound Care/Special Instructions: Follow-up with Dr. Escamilla in approximately 3 weeks for office cystoscopy. Does PT need to re-evaluate before discharge??
== END 2023-08-18 17:34 | disposition home or self-care (01) | DRG 682 ==
LOC: EC 13:57 → 5NMEDONC 18:54 → OBSVTOIN 18:55 → 5NMEDONC 20:11
PROVIDERS: ADMIT Internal Medicine; ATTEND Internal Medicine
PROC: 3C1ZX8Z Irrigation of Indwelling Device using Irrigating Substance, External Approach (ICD-10-PCS; principal; 2023-08-14)
PROC: 0T9B70Z Drainage of Bladder with Drainage Device, Via Natural or Artificial Opening (ICD-10-PCS; principal; 2023-08-14)
DX: N17.0 Acute kidney failure with tubular necrosis (principal); I71.02 Dissection of abdominal aorta; I47.20 Ventricular tachycardia, unspecified; T83.518A Infection and inflammatory reaction due to other urinary catheter, initial encounter; T83.83XA Hemorrhage due to genitourinary prosthetic devices, implants and grafts, initial encounter; I50.22 Chronic systolic (congestive) heart failure; N39.0 Urinary tract infection, site not specified; I11.0 Hypertensive heart disease with heart failure; I48.0 Paroxysmal atrial fibrillation; E89.0 Postprocedural hypothyroidism; E05.90 Thyrotoxicosis, unspecified without thyrotoxic crisis or storm; N40.1 Benign prostatic hyperplasia with lower urinary tract symptoms; R33.8 Other retention of urine; R39.11 Hesitancy of micturition; R39.14 Feeling of incomplete bladder emptying; R31.0 Gross hematuria; E78.5 Hyperlipidemia, unspecified; I25.5 Ischemic cardiomyopathy; I25.10 Atherosclerotic heart disease of native coronary artery without angina pectoris; I25.2 Old myocardial infarction; K21.9 Gastro-esophageal reflux disease without esophagitis; M19.90 Unspecified osteoarthritis, unspecified site; H35.30 Unspecified macular degeneration; H54.8 Legal blindness, as defined in USA; J30.9 Allergic rhinitis, unspecified; K59.00 Constipation, unspecified; R26.9 Unspecified abnormalities of gait and mobility; Z79.01 Long term (current) use of anticoagulants; Z79.82 Long term (current) use of aspirin; Z79.899 Other long term (current) drug therapy; Z87.891 Personal history of nicotine dependence; Z95.5 Presence of coronary angioplasty implant and graft; Z95.810 Presence of automatic (implantable) cardiac defibrillator; Z96.653 Presence of artificial knee joint, bilateral; Y84.6 Urinary catheterization as the cause of abnormal reaction of the patient, or of later complication, without mention of misadventure at the time of the procedure; Z91.040 Latex allergy status; Z88.8 Allergy status to other drugs, medicaments and biological substances
CPT/HCPCS: 36415; 71046; 74018; 76770; 80053; 81001; 83605; 83735; 83880; 84100; 84484; 85025; 85610; 85730; 87077; 87086; 87186; 87636; 93005; 94760; 96360; 96361; 99285

== ENCOUNTER 2023-08-30 17:01 | Observation (INO) | payer MEDICARE ==
--- NOTE | 2023-08-30 17:20 | ED ---
General Adult HPI - General Chief complaint: Syncope Stated complaint: Syncope Time Seen by Provider: 08/30/23 17:09 Source: patient, EMS, RN notes reviewed Mode of arrival: EMS Limitations: no limitations - History of Present Illness Initial comments: Patient is a 88-year-old male presenting to the emergency department with reported syncopal episode. Patient does not recall the episode. Patient was reportedly at his doctor's office and he passed out. Patient states he feels fine and has no complaints. No headache or weakness or confusion. No chest pain or dyspnea. No history of similar symptoms previously. - Related Data Home Medications Medication Instructions Recorded Confirmed Spironolactone [Aldactone] 12.5 mg PO DAILY@0700 12/03/16 08/10/23 Aspirin [Adult Low Dose Aspirin EC] 81 mg PO DAILY@0700 11/16/17 08/10/23 Atorvastatin [Lipitor] 80 mg PO HS@1900 03/03/21 08/10/23 Nitroglycerin 0.4 mg SL Q5M PRN 09/28/22 08/10/23 Metoprolol Succinate (ER) [Toprol 75 mg PO HS@189911/13/22 08/10/23 XL] Acetaminophen Tab [Tylenol] 650 mg PO Q6H PRN 05/22/23 08/10/23 Amiodarone [Cordarone] 100 mg PO DAILY@69908/10/23 08/10/23 Apixaban [Eliquis] 5 mg PO BID@0700,189908/10/23 08/10/23 Arthritis Pain Relief Roll-On 1 applic TOPICAL DAILY PRN 08/10/23 08/10/23 Cbdigest 1 cap PO HS@189908/10/23 08/10/23 Fluticasone Nasal [place] [Flonase 2 spray EA NOSTRIL DAILY@189908/10/23 08/10/23 Nasal [place]] Furosemide [Lasix] 20 mg PO DAILY@0708/10/23 08/10/23 HYDROcodone/APAP 5-325MG [[place] 1 tab PO BID PRN 08/10/23 08/10/23 5-325] Levocetirizine Dihydrochloride 5 mg PO HS@189908/10/23 08/10/23 [Xyzal] Montelukast Sodium 10 mg PO DAILY@0700 08/10/23 08/10/23 Omeprazole 40 mg PO AC-BRKFST@0700 08/10/23 08/10/23 Sennosides [Senokot] 8.6 mg PO BID@0700,1900 08/10/23 08/10/23 lisinopriL [Zestril] 20 mg PO DAILY@0700 08/10/23 08/10/23 polyethylene glycoL 3350 [Miralax] 17 gm PO DAILY@0700 08/10/23 08/10/23 Previous Rx's Medication Instructions Recorded Baclofen [Lioresal] 5 mg PO DAILY PRN tab 05/26/23 Lactulose [Cephulac] 20 gm PO TID PRN ml 05/26/23 cefUROXime axetiL [Ceftin] 500 mg PO BID 7 Days #14 tab 08/18/23 Allergies Allergy/AdvReac Type Severity Reaction Status Date / Time amlodipine besylate Allergy Rash/Hives Verified 08/10/23 15:25 [From Norvasc] isosorbide [From Imdur] Allergy Unknown Verified 08/10/23 15:25 Latex, Natural Rubber Allergy Rash/Hives Verified 08/10/23 15:25 Review of Systems ROS Statement: Those systems with pertinent positive or pertinent negative responses have been documented in the HPI. ROS Other: All systems not noted in ROS Statement are negative. Constitutional: Denies: fever Eyes: Denies: eye pain ENT: Denies: ear pain Respiratory: Denies: cough, dyspnea Cardiovascular: Denies: chest pain Endocrine: Denies: fatigue Gastrointestinal: Denies: abdominal pain Musculoskeletal: Denies: back pain Past Medical History Past Medical History: Coronary Artery Disease (CAD), Heart Failure, Eye Disorder, GERD/Reflux, GI Bleed, Hyperlipidemia, Hypertension, Myocardial Infarction (TN), Osteoarthritis (OA), Prostate Disorder, Thyroid Disorder Additional Past Medical History / Comment(s): cardiomyopathy, DENGENERATIVE ARTHRITIS, MACULAR DEGENERATION AND CATARACTS,GI BLEED 2011, fall11-24-16/facial inj/bruing/broken front teeth,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 , LEGALLY BLIND, FELL AND CUT HIS LT ARM-NO STITCHES NEEDED BUT PUT ON ANTIBIOTICS PREVENTATIVE-STILL HAS BRUISING.-NOTIFIED [facility] IN PAIN CLINIC-SEE NN PLEASE Last Myocardial Infarction Date:: History of Any Multi-Drug Resistant Organisms: None Reported Past Surgical History: Adenoidectomy, AICD, Appendectomy, Cholecystectomy, Heart Catheterization, Heart Catheterization With Stent, Joint Replacement, Orthopedic Surgery, Pacemaker, Tonsillectomy Additional Past Surgical History / Comment(s): AICD, Defrillation Testing 04/02/14, TOTAL LT/RT KNEE ARTHROPLASTY, bilateral CATARACTS, bilateral carpal tunnel releases, PARTIAL THYROIDECTOMY due to nodules, trigger fingers,heart st ents x3, PAIN CLINIC PROCEDURES Past Anesthesia/Blood Transfusion Reactions: No Reported Reaction Additional Past Anesthesia/Blood Transfusion Reaction / Comment(s): wakes up during surgery,no hx blood transfusion Date of Last Stent Placement:: Type of Cardiac Device: Biventricular Pacemaker, AICD Device Placement Date:: 12-04-13 [employer] Past Psychological History: No Psychological Hx Reported Smoking Status: Former smoker Past Alcohol Use History: None Reported Past Drug Use History: None Reported - Past Family History Son(s) Family Medical History: No Reported History Father Family Medical History: Cancer, Coronary Artery Disease (CAD), CVA/TIA, Diabetes Mellitus Additional Family Medical History / Comment(s): CAROTID ARTERY BLOCKAGE.SX IN 1988 Mother Family Medical History: Unable to Obtain Additional Family Medical History / Comment(s): AT AGE 89- UNK HX Daughter(s) Family Medical History: Cancer (Patient has 2 adopted daughters and he has been under a lot of stress with his adopted daughter whom her left taking her cars with him.) BROTHER Family Medical History: Cancer Additional Family Medical History / Comment(s): BONE, PANCREATIC General Exam Limitations: no limitations General appearance: alert, in no apparent distress Head exam: Present: normocephalic Eye exam: Present: normal appearance, PERRL, EOMI ENT exam: Present: normal oropharynx Neck exam: Present: normal inspection. Absent: tenderness Respiratory exam: Present: normal lung sounds bilaterally Cardiovascular Exam: Present: regular rate, normal rhythm GI/Abdominal exam: Present: soft. Absent: tenderness Extremities exam: Present: normal inspection. Absent: pedal edema, calf tenderness Neurological exam: Present: alert, CN II-XII intact. Absent: motor sensory deficit Expanded Neurological exam: Present: protecting the airway Patient oriented to: Present: person, place. Absent: time (States the year is 2022) Speech: Present: fluid speech Cranial nerves: EOM's Intact: Normal Motor strength exam: RUE: 5, LUE: 5, RLE: 5, LLE: 5 Eye Response: (4) open spontaneously Motor Response: (6) obeys commands Psychiatric exam: Present: normal affect, normal mood Skin exam: Present: normal color Course Vital Signs 08/30/23 08/30/23 17:03 18:30 Temperature 97.5 F L Pulse Rate 78 84 Respiratory 18 16 Rate Blood Pressure 120/71 125/85 O2 Sat by Pulse 82 L 99 Oximetry EKG Findings - EKG Results: EKG: interpreted by SOFIAD (Left axis. Septal Q waves. Inferior Q waves. Nonspecific interventricular conduction delay.), sinus rhythm, normal ST/T Medical Decision Making - Medical Decision Making Was pt. sent in by a medical professional or institution (, PA, CAMPAIGN WORKER, urgent care, hospital, or shelter...) When possible be specific @ -Patient was sent by primary care physician office. Did you speak to anyone other than the patient for history (EMS, parent, family, police, friend...)? What history was obtained from this source @ -EMS provides history of syncopal Did you review nursing and triage notes (agree or disagree)? Why? @ -I reviewed and agree with nursing and triage notes Were old charts reviewed (outside hosp., previous admission, EMS record, old EKG, old radiological studies, urgent care reports/EKG's, shelter records)? Report findings @ - Differential Diagnosis (chest pain, altered mental status, abdominal pain women, abdominal pain men, vaginal bleeding, weakness, fever, dyspnea, syncope, headache, dizziness, GI bleed, back pain, seizure, CVA, palpatations, mental health, musculoskeletal)? @ -Differential Syncope: Valvular disease, hypertrophic cardiomyopathy, pulmonary embolism, tamponade, tachycardia, bradycardia, TN, hypovolemia, hemorrhage, dissection, anemia, intracranial hemorrhage, seizure, hypoglycemia, carbon monoxide poisoning, this is not meant to be an all-inclusive list. EKG interpreted by me (3pts min.). @ -As above X-rays interpreted by me (1pt min.). @ -Chest x-ray shows mild interstitial change CT interpreted by me (1pt min.). @ -CT brain shows atrophy U/S interpreted by me (1pt. min.). @ -None done What testing was considered but not performed or refused? (CT, X-rays, U/S, labs)? Why? @ -None What meds were considered but not given or refused? Why? @ -None Did you discuss the management of the patient with other professionals (professionals i.e. DrPacheco, PA, CAMPAIGN WORKER, lab, RT, psych nurse, social worker assistant, radio antenna installer, t eacher, nuclear security officer, sample case porter)? Give summary @ -Case was discussed with Dr. Rowland who is familiar with this patient and will keep for monitoring and cardiac consult. Was smoking cessation discussed for >3mins.? @ -No Was critical care preformed (if so, how long)? @ -No Were there social determinants of health that impacted care today? How? (Homelessness, low income, unemployed, alcoholism, drug addiction, transportation, low edu. Level, literacy, decrease access to med. care, long-term, rehab)? @ -No Was there de-escalation of care discussed even if they declined (Discuss DNR or withdrawal of care, Hospice)? DNR status @ -No What co-morbidities impacted this encounter? (DM, HTN, Smoking, COPD, CAD, Cancer, CVA, ARF, Chemo, Hep., AIDS, mental health diagnosis, sleep apnea, morbid obesity)? @ -None Was patient admitted / discharged? Hospital course, mention meds given and route, prescriptions, significant lab abnormalities, going to OR and other pertinent info. @ -Patient presents with syncopal episode. Patient to be admitted and cardiac consult placed. Admission orders written. Patient reevaluated. Patient and family updated. Undiagnosed new problem with uncertain prognosis? @ -No Drug Therapy requiring intensive monitoring for toxicity (Heparin, Nitro, Insulin, Cardizem)? @ -No Were any procedures done? @ -No Diagnosis/symptom? @ -Syncope Acute, or Chronic, or Acute on Chronic? @ -Acute Uncomplicated (without systemic symptoms) or Complicated (systemic symptoms)? @ -Default Side effects of treatment? @ -No Exacerbation, Progression, or Severe Exacerbation? @ -No Poses a threat to life or bodily function? How? (Chest pain, [place], TN, pneumonia, PE, COPD, DKA, ARF, appy, cholecystitis, CVA, Diverticulitis, Homicidal, Suicidal, threat to staff... and all critical care pts) @ -Risk of arrhythmia - Lab Data Result diagrams: 08/30/23 17:22 08/30/23 17:22 Lab Results 08/30/23 08/30/23 08/30/23 Range/Units 17:22 17:22 17:22 WBC 11.0 H (3.8-10.6) k/uL RBC 3.81 L (4.30-5.90) m/uL Hgb 12.3 L (13.0-17.5) gm/dL Hct 38.3 L (39.0-53.0) % MCV 100.5 H (80.0-100.0) fL MCH 32.3 (25.0-35.0) pg MCHC 32.2 (31.0-37.0) g/dL RDW 13.1 (11.5-15.5) % Plt Count 427 (150-450) k/uL MPV 8.3 Neutrophils % 79 % Lymphocytes % 11 % Monocytes % 4 % Eosinophils % 4 % Basophils % 1 % Neutrophils # 8.7 H (1.3-7.7) k/uL Lymphocytes # 1.2 (1.0-4.8) k/uL Monocytes # 0.4 (0-1.0) k/uL Eosinophils # 0.5 (0-0.7) k/uL Basophils # 0.1 (0-0.2) k/uL PT 12.0 (10.0-12.5) sec INR 1.1 (<1.2) APTT 26.7 (22.0-30.0) sec D-Dimer 0.50 (<0.60) mg/L FEU Sodium 130 L (137-145) mmol/L Potassium 5.0 (3.5-5.1) mmol/L Chloride 100 (98-107) mmol/L Carbon Dioxide 23 (22-30) mmol/L Anion Gap 7 mmol/L BUN 30 H (9-20) mg/dL Creatinine 1.19 (0.66-1.25) mg/dL Est GFR (CKD-EPI)AfAm 62 (>60 ml/min/1.73 sqM) Est GFR (CKD-EPI)NonAf 54 (>60 ml/min/1.73 sqM) Glucose 162 H (74-99) mg/dL Calcium 9.3 (8.4-10.2) mg/dL Magnesium 1.8 (1.6-2.3) mg/dL Total Bilirubin 0.8 (0.2-1.3) mg/dL AST 23 (17-59) U/L ALT 14 (4-49) U/L Alkaline Phosphatase 89 (38-126) U/L Troponin I (0.000-0.034) ng/mL Total Protein 6.6 (6.3-8.2) g/dL Albumin 3.2 L (3.5-5.0) g/dL 08/30/23 Range/Units 17:22 WBC (3.8-10.6) k/uL RBC (4.30-5.90) m/uL Hgb (13.0-17.5) gm/dL Hct (39.0-53.0) % MCV (80.0-100.0) fL MCH (25.0-35.0) pg MCHC (31.0-37.0) g/dL RDW (11.5-15.5) % Plt Count (150-450) k/uL MPV Neutrophils % % Lymphocytes % % Monocytes % % Eosinophils % % Basophils % % Neutrophils # (1.3-7.7) k/uL Lymphocytes # (1.0-4.8) k/uL Monocytes # (0-1.0) k/uL Eosinophils # (0-0.7) k/uL Basophils # (0-0.2) k/uL PT (10.0-12.5) sec INR (<1.2) APTT (22.0-30.0) sec D-Dimer (<0.60) mg/L FEU Sodium (137-145) mmol/L Potassium (3.5-5.1) mmol/L Chloride (98-107) mmol/L Carbon Dioxide (22-30) mmol/L Anion Gap mmol/L BUN (9-20) mg/dL Creatinine (0.66-1.25) mg/dL Est GFR (CKD-EPI)AfAm (>60 ml/min/1.73 sqM) Est GFR (CKD-EPI)NonAf (>60 ml/min/1.73 sqM) Glucose (74-99) mg/dL Calcium (8.4-10.2) mg/dL Magnesium (1.6-2.3) mg/dL Total Bilirubin (0.2-1.3) mg/dL AST (17-59) U/L ALT (4-49) U/L Alkaline Phosphatase (38-126) U/L Troponin I <0.012 (0.000-0.034) ng/mL Total Protein (6.3-8.2) g/dL Albumin (3.5-5.0) g/dL Disposition Clinical Impression: Syncope Disposition: ADMITTED IP TO THIS HOSP Is patient prescribed a controlled substance at d/c from ED?: No Referrals: Oskar Rowland MD [Primary Care Provider] - 1-2 days Time of Disposition: 19:11
[2023-08-30 17:42] LABS: Basophils # (A) 0.1 k/uL (0-0.2); Basophils % (A) 1 %; Eosinophils # (A) 0.5 k/uL (0-0.7); Eosinophils % (A) 4 %; HCT 38.3 % (39.0-53.0); HGB 12.3 gm/dL (13.0-17.5); Lymphocytes # (A) 1.2 k/uL (1.0-4.8); Lymphocytes % (A) 11 %; MCH 32.3 pg (25.0-35.0); MCHC 32.2 g/dL (31.0-37.0); MCV 100.5 fL (80.0-100.0); Mean Platelet Volume 8.3; Monocytes # (A) 0.4 k/uL (0-1.0); Monocytes % (A) 4 %; Neutrophils # (A) 8.7 k/uL (1.3-7.7); Neutrophils % (A) 79 %; Platelet Count 427 k/uL (150-450); RBC 3.81 m/uL (4.30-5.90); RDW 13.1 % (11.5-15.5)
[2023-08-30 17:50] LABS: ALT 14 U/L (4-49); AST 23 U/L (17-59); African American GFR (CKD) 62 (>60 ml/min/1.73 sqM); Albumin 3.2 g/dL (3.5-5.0); Alkaline Phosphatase 89 U/L (38-126); Anion Gap 7 mmol/L; Blood Urea Nitrogen 30 mg/dL (9-20); Calcium 9.3 mg/dL (8.4-10.2); Carbon Dioxide 23 mmol/L (22-30); Chloride 100 mmol/L (98-107); Glucose 162 mg/dL (74-99); Magnesium 1.8 mg/dL (1.6-2.3); Non-African American GFR(CKD) 54 (>60 ml/min/1.73 sqM); Sodium 130 mmol/L (137-145); Total Bilirubin 0.8 mg/dL (0.2-1.3); Total Protein 6.6 g/dL (6.3-8.2)
[2023-08-30 18:26] LABS: Partial Thromboplastin Time 26.7 sec (22.0-30.0)
--- NOTE | 2023-08-30 18:35 | CT ---
EXAMINATION TYPE: CT brain wo con DATE OF EXAM: 08/30/2023 COMPARISON: 03/05/2023 HISTORY: 88-year-old male syncope TECHNIQUE: Examination was done in axial plane without intravenous contrast. Coronal and sagittal r econstructions performed. CT DLP: 1256.4 mGycm Automated exposure control for dose reduction was used. FINDINGS: There is no evidence of acute intracranial hemorrhage, acute ischemic changes, mass, mass-effect, or extra-axial fluid collection. There is no effacement of cerebral sulci or basal subarachnoid cister ns. There is no midline shift. Rainey-white matter distinction is preserved. Mild to moderate generalized supratentorial volume loss. Confluent white matter hypodensities through out the hemispheres. Mild ventricular prominence is similar, likely due to central cerebral atrophy. Atherosclerotic calcifications in the carotid siphons. Paranasal sinuses and mastoid air cells are well pneumatized. Previous scleral banding right globe. IMPRESSION: Mild to moderate generalized atrophy and severe confluent burden of chronic small vessel ischemic dis ease. No acute intracranial abnormality seen.
--- NOTE | 2023-08-30 18:53 | XR ---
EXAMINATION TYPE: XR chest 2V DATE OF EXAM: 08/30/2023 COMPARISON: 08/10/2023 HISTORY: 88-year-old male with syncope TECHNIQUE: AP and lateral views FINDINGS: Left anterior chest wall AICD generator with right ventricular lead. Diffuse interstitial density is present. Heart borderline in size. No reanna consolidation or pleural effusion. IMPRESSION: Borderline heart size and interstitial density. Consider bronchitis, mild pulmonary vascular congesti on, or atypical pneumonias.
[2023-08-30 18:55] LABS: INR 1.1 (<1.2)
[2023-08-30] MEDS ORDERED: NALOXONE 0.4 MG/ML 1 ML VIAL IV PRN (19:11)
[2023-08-30] MEDS ORDERED: [UNRECOGNIZED DRUG - OTHER] TOPICAL PRN (19:16)
[2023-08-30] MEDS ORDERED: BACLOFEN 10 MG TAB PO PRN (19:16)
[2023-08-30] MEDS ORDERED: LACTULOSE 20 GM/30 ML CUP PO PRN (19:16)
[2023-08-30] MEDS ORDERED: NITROGLYCERIN SL TABS 0.4 MG TAB SUBLINGUAL PRN (19:16)
[2023-08-30] MEDS: SODIUM CHLORIDE 0.9% 1,000 ML IV SCH (19:36)
[2023-08-30] MEDS: HYDROcodone/APAP 5-325MG 1 EACH TAB PO PRN (21:00)
[2023-08-31] MEDS: ACETAMINOPHEN TAB 325 MG TAB PO PRN (04:12)
[2023-08-31] MEDS: MONTELUKAST 10 MG TAB PO SCH (07:21)
[2023-08-31] MEDS: APIXABAN 5 MG TAB PO SCH (07:21)
[2023-08-31] MEDS: lisinopriL 20 MG TAB PO SCH (07:21)
[2023-08-31] MEDS: PANTOPRAZOLE 40 MG TABLET PO SCH (07:21)
[2023-08-31] MEDS: ASPIRIN 81 MG PO SCH (07:21)
[2023-08-31] MEDS: SENNOSIDES 8.6 MG TAB PO SCH (07:21)
[2023-08-31] MEDS: FUROSEMIDE 20 MG TAB PO SCH (07:21)
[2023-08-31] MEDS: SPIRONOLACTONE 25 MG TAB PO SCH (07:22)
[2023-08-31] MEDS: polyethylene glycoL 3350 17 GM POWD.PACK PO SCH (07:22)
[2023-08-31] MEDS: AMIODARONE 100 MG TAB PO SCH (08:15)
[2023-08-31 09:37] LABS: Basophils # (A) 0.1 k/uL (0-0.2); Basophils % (A) 1 %; Eosinophils # (A) 0.6 k/uL (0-0.7); Eosinophils % (A) 7 %; HCT 36.6 % (39.0-53.0); HGB 11.7 gm/dL (13.0-17.5); Lymphocytes # (A) 1.7 k/uL (1.0-4.8); Lymphocytes % (A) 20 %; MCH 32.2 pg (25.0-35.0); MCHC 31.9 g/dL (31.0-37.0); MCV 100.9 fL (80.0-100.0); Mean Platelet Volume 8.3; Monocytes # (A) 0.4 k/uL (0-1.0); Monocytes % (A) 4 %; Neutrophils # (A) 5.4 k/uL (1.3-7.7); Neutrophils % (A) 66 %; Platelet Count 368 k/uL (150-450); RBC 3.62 m/uL (4.30-5.90); WBC 8.2 k/uL (3.8-10.6)
[2023-08-31 10:03] LABS: ALT 13 U/L (4-49); AST 19 U/L (17-59); African American GFR (CKD) 62 (>60 ml/min/1.73 sqM); Albumin/Globulin Ratio 0.9; Alkaline Phosphatase 79 U/L (38-126); Anion Gap 6 mmol/L; Blood Urea Nitrogen 28 mg/dL (9-20); Calcium 9.3 mg/dL (8.4-10.2); Carbon Dioxide 24 mmol/L (22-30); Chloride 101 mmol/L (98-107); Globulin 3.2 g/dL; Glucose 112 mg/dL (74-99); Magnesium 1.9 mg/dL (1.6-2.3); Non-African American GFR(CKD) 54 (>60 ml/min/1.73 sqM); Potassium 4.6 mmol/L (3.5-5.1); Sodium 131 mmol/L (137-145); Total Bilirubin 0.7 mg/dL (0.2-1.3); Total Protein 6.2 g/dL (6.3-8.2)
--- NOTE | 2023-08-31 10:58 | P.CRDCN ---
History of Present Illness History of present illness: HISTORY OF PRESENT ILLNESS: This is a 88-year-old male with a past medical history significant for coronary artery disease with previous stenting, ischemic cardiomyopathy, AICD implantati on, hypertension, hyperlipidemia, Afib, and congestive heart failure. Patient follows in the office with Dr. Kearns. We have been asked to see the patient in consultation for syncopal episode. patient was at primary care physician's office and had a number of tests including an EKG and had been waiting for approximately an hour and then while he was sitting and having his feet examined he had a syncopal episode. Patient denies any significant symptoms prior to this. He has not been eating much however blood sugar level was normal and reportedly blood pressure in the 90s over 50s. Currently feels back to his normal self. Unfortunately has been having slow decline over the last few months and has had a number of hospitalizations. He is now an adult foster care. He is unsteady on his feet and weak in general. He did have recent hospitalization and May where he was found to have new onset ventricular tachycardia as well as A. fib and started on amiodarone. Unfortunately the amiodarone does make him nauseous and he therefore was decreased down to 100 mg daily. additionally heart catheterization was performed with no intervention performed. He still has been nauseous and has been losing weight. He also has had bladder issues with some bladder infections and concern of possible bladder cancer. REVIEW OF SYSTEMS: At the time of my exam: CONSTITUTIONAL: Denies fever or chills. HEENT: Denies blurred vision, vision changes, or eye pain. Denies hemoptysis CARDIOVASCULAR: Denies chest pain. Denies orthopnea. Denies PND. Denies palpitations RESPIRATORY: Denies shortness of breath. GASTROINTESTINAL: Denies abdominal pain. Denies nausea or vomiting. HEMATOLOGIC: Denies bleeding disorders. GENITOURINARY: Denies any blood in urine. SKIN: Denies pruitis. Denies rash. PHYSICAL EXAM: VITAL SIGNS: Reviewed. GENERAL: Well-developed in no acute distress. HEENT: Head is normocephalic. Pupils are equal, round. Sclerae anicteric. Mucous membranes of the mouth are moist. Neck supple. No JVD or thyromegaly LUNGS: Respirations even and unlabored. Lungs essentially clear to auscultation bilaterally. HEART: Regular rate and rhythm. S1 and S2 heard. ABDOMEN: Soft. Nondistended. Nontender. EXTREMITIES: Normal range of motion. No clubbing or cyanosis. Peripheral pulse s intact. No lower extremity edema NEUROLOGIC: Awake and alert. Oriented x 3. ASSESSMENT: Syncope while seated Paroxysmal atrial fibrillation Ventricular tachycardia, status post AICD discharge 06/08 Coronary artery disease with previous stenting Ischemic cardiomyopathy, EF 25% History of ICD implantation Hypertension Hyperlipidemia Congestive heart failure with reduced EF, currently euvolemic Hyponatremia Failure to thrive PLAN: patient with recent extensive workup in May which was unrevealing. Possible concern of some form of arrhythmia and therefore interrogate defibrillator. May be a vasovagal episode however no obvious inciting event as patient was only having his feet examined during this episode. May be related to recent weight loss and blood pressure medications may need to be decreased however currently well controlled. Check orthostatics. Discussed how aggressive family wants to be in at this time mainly rule out adhesive form of arrhythmia. If no significant arrhythmia and orthostatics normal, patient may discharge home from a cardiology standpoint. Past Medical History Past Medical History: Coronary Artery Disease (CAD), Heart Failure, Eye Disorder, GERD/Reflux, GI Bleed, Hyperlipidemia, Hypertension, Myocardial Inf arction ([place]), Osteoarthritis (OA), Prostate Disorder, Thyroid Disorder Additional Past Medical History / Comment(s): cardiomyopathy, DENGENERATIVE ARTHRITIS, MACULAR DEGENERATION AND CATARACTS,GI BLEED 2011, fall 11-24-16/facial inj/bruing/broken front teeth,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 , LEGALLY BLIND, FELL AND CUT HIS LT ARM-NO STITCHES NEEDED BUT PUT ON ANTIBIOTICS PREVENTATIVE-STILL HAS BRUISING.-NOTIFIED [place] IN PAIN CLINIC-SEE NN PLEASE Last Myocardial Infarction Date:: History of Any Multi-Drug Resistant Organisms: None Reported Past Surgical History: Adenoidectomy, AICD, Appendectomy, Cholecystectomy, Heart Catheterization, Heart Catheterization With Stent, Joint Replacement, Orthopedic Surgery, Pacemaker, Tonsillectomy Additional Past Surgical History / Comment(s): AICD, Defrillation Testing 04/02/14, TOTAL LT/RT KNEE ARTHROPLASTY, bilateral CATARACTS, bilateral carpal tunnel releases, PARTIAL THYROIDECTOMY due to nodules, trigger fingers,heart stents x3, PAIN CLINIC PROCEDURES Past Anesthesia/Blood Transfusion Reactions: No Reported Reaction Additional Past Anesthesia/Blood Transfusion Reaction / Comment(s): wakes up during surgery,no hx blood transfusion Date of Last Stent Placement:: Type of Cardiac Device: Biventricular Pacemaker, AICD Device Placement Date:: 12-04-13 [employer] Past Psychological History: No Psychological Hx Reported Smoking Status: Former smoker Past Alcohol Use History: None Reported Past Drug Use History: None Reported - Past Family History Son(s) Family Medical History: No Reported History Father Family Medical History: Cancer, Coronary Artery Disease (CAD), CVA/TIA, Diabetes Mellitus Additional Family Medical History / Comment(s): CAROTID ARTERY BLOCKAGE.SX IN 1988 Mother Family Medical History: Unable to Obtain Additional Family Medical History / Comment(s): AT AGE 89- UNK HX Daughter(s) Family Medical History: Cancer (Patient has 2 adopted daughters and he has been under a lot of stress with his adopted daughter whom her left taking her cars with him.) BROTHER Family Medical History: Cancer Additional Family Medical History / Comment(s): BONE, PANCREATIC Medications and Allergies Home Medications Medication Instructions Recorded Confirmed Type Spironolactone [Aldactone] 12.5 mg PO DAILY@0700 12/03/16 08/30/23 History Aspirin [Adult Low Dose Aspirin EC] 81 mg PO DAILY@0700 11/16/17 08/30/23 Histo ry Atorvastatin [Lipitor] 80 mg PO HS@1900 03/03/21 08/30/23 History Nitroglycerin 0.4 mg SL Q5M PRN 09/28/22 08/30/23 History Metoprolol Succinate (ER) [Toprol 75 mg PO HS@1900 11/13/22 08/30/23 History XL] Acetaminophen Tab [Tylenol] 650 mg PO Q6H PRN 05/22/23 08/30/23 History Baclofen [Lioresal] 5 mg PO DAILY PRN tab 05/26/23 08/30/23 Rx Lactulose [Cephulac] 20 gm PO TID PRN ml 05/26/23 08/30/23 Rx Amiodarone [Cordarone] 100 mg PO DAILY@0700 08/10/23 08/30/23 History Apixaban [Eliquis] 5 mg PO BID@0700,1900 08/10/2308/29/24 History Arthritis Pain Relief Roll-On 1 applic TOPICAL DAILY PRN 08/10/23 08/30/23 History Cbdigest 1 cap PO HS@189908/10/23 08/30/23 History Fluticasone Nasal [place] [Flonase 2 spray EA NOSTRIL DAILY@189908/10/23 08/30/23 History Nasal [place]] Furosemide [Lasix] 20 mg PO DAILY@69908/10/23 08/30/23 History HYDROcodone/APAP 5-325MG [[place] 1 tab PO BID PRN 08/10/23 08/30/23 History 5-325] Levocetirizine Dihydrochloride 5 mg PO HS@189908/10/23 08/30/23 History [Xyzal] Montelukast Sodium 10 mg PO DAILY@69908/10/23 08/30/23 History Omeprazole 40 mg PO AC-BRKFST@69908/10/23 08/30/23 History Sennosides [Senokot] 8.6 mg PO DAILY@69908/10/23 08/30/23 History lisinopriL [Zestril] 20 mg PO DAILY@69908/10/23 08/30/23 History polyethylene glycoL 3350 [Miralax] 17 gm PO DAILY@69908/10/23 08/30/23 History Tums Chewy Bites 750mg 1 dose PO DIRECTED PRN 08/30/23 08/30/23 History Allergies Allergy/AdvReac Type Severity Reaction Status Date / Time amlodipine besylate Allergy Rash/Hives Verified 08/30/23 19:27 [From Norvasc] isosorbide [From Imdur] Allergy Unknown Verified 08/30/23 19:27 Latex, Natural Rubber Allergy Rash/Hives Verified 08/30/23 19:27 Physical Exam Vitals: Vital Signs Temp Pulse Resp BP Pulse Ox 08/31/23 06:56 58 L 16 127/67 98 08/31/23 06:00 56 L 16 134/72 98 08/31/23 04:00 56 L 14 125/61 99 08/31/23 03:00 57 L 16 125/61 98 08/31/23 02:00 58 L 16 95/61 98 08/31/23 00:00 61 16 92/54 97 08/30/23 22:00 61 18 145/70 98 08/30/23 20:00 61 20 100 08/30/23 18:30 84 16 125/85 99 08/30/23 17:03 97.5 F L 78 18 120/71 82 L Intake and Output 08/30/23 08/31/23 08/31/23 22:59 06:59 14:59 Other: Weight 90.718 kg Results 08/31/23 09:19 08/31/23 09:19 Cardiac Enzymes 08/30/23 08/30/23 08/30/23 Range/Units 17:22 17:22 20:51 AST 23 (17-59) U/L Troponin I <0.012 <0.012 (0.000-0.034) ng/mL 08/31/23 08/31/23 Range/Units 00:25 09:19 AST 19 (17-59) U/L Troponin I <0.012 (0.000-0.034) ng/mL Coagulation 08/30/23 Range/Units 17:22 PT 12.0 (10.0-12.5) sec APTT 26.7 (22.0-30.0) sec CBC 08/30/23 08/31/23 Range/Units 17:22 09:19 WBC 11.0 H 8.2 (3.8-10.6) k/uL RBC 3.81 L 3.62 L (4.30-5.90) m/uL Hgb 12.3 L 11.7 L (13.0-17.5) gm/dL Hct 38.3 L 36.6 L (39.0-53.0) % Plt Count 427 368 (150-450) k/uL Comprehensive Metabolic Panel 08/30/23 08/31/23 Range/Units 17:22 09:19 Sodium 130 L 131 L (137-145) mmol/L Potassium 5.0 4.6 (3.5-5.1) mmol/L Chloride 100 101 (98-107) mmol/L Carbon Dioxide 23 24 (22-30) mmol/L BUN 30 H 28 H (9-20) mg/dL Creatinine 1.19 1.19 (0.66-1.25) mg/dL Glucose 162 H 112 H (74-99) mg/dL Calcium 9.3 9.3 (8.4-10.2) mg/dL AST 23 19 (17-59) U/L ALT 14 13 (4-49) U/L Alkaline Phosphatase 89 79 (38-126) U/L Total Protein 6.6 6.2 L (6.3-8.2) g/dL Albumin 3.2 L 3.0 L (3.5-5.0) g/dL Current Medications Generic Name Dose Route Start Last Admin Trade Name Freq PRN Reason Stop Dose Admin Acetaminophen 650 mg 08/30/23 19:16 08/31/23 04:12 Acetaminophen Tab 325 Mg Tab PO 650 mg Q6H PRN Administration Mild Pain (Scale 1 to 3) Hydrocodone Bitart/Acetaminophen 1 each 08/30/23 19:16 08/30/23 21:00 Hydrocodone/Apap 5-325mg 1 Each Tab PO 1 each BID PRN Administration Pain Amiodarone HCl 100 mg 08/31/23 07:00 08/31/23 08:15 Amiodarone 100 Mg Tab PO 100 mg DAILY@0700 [facility] Administration Apixaban 5 mg 08/31/23 07:00 08/31/23 07:21 Apixaban 5 Mg Tab PO 5 mg BID@0700,1900 [facility] Administration Protocol Aspirin 81 mg 08/31/23 07:00 08/31/23 07:21 Aspirin 81 Mg PO 81 mg DAILY@0700 [facility] Administration Atorvastatin Calcium 80 mg 08/31/23 19:00 Atorvastatin 80 Mg Tab PO HS@1900 [facility] Baclofen 5 mg 08/30/23 19:16 Baclofen 10 Mg Tab PO DAILY PRN Spasms Fluticasone Propionate 2 spray 08/31/23 19:00 Fluticasone Nasal 50mcg/[place] 16gm Btl EA NOSTRIL DAILY@1900 [facility] Furosemide 20 mg 08/31/23 07:00 08/31/23 07:21 Furosemide 20 Mg Tab PO 20 mg DAILY@0700 [facility] Administration Sodium Chloride 1,000 mls @ 75 mls/hr 08/30/23 19:15 08/31/23 08:18 Saline 0.9% IV Not Given .[id number] [facility] Lactulose 20 gm 08/30/23 19:16 Lactulose 20 Gm/30 Ml Cup PO TID PRN Constipation Lisinopril 20 mg 08/31/23 07:00 08/31/23 07:21 Lisinopril 20 Mg Tab PO 20 mg DAILY@0700 [facility] Administration Loratadine 10 mg 08/31/23 19:00 Loratadine 10 Mg Tab PO HS@1900 [facility] Metoprolol Succinate 75 mg 08/31/23 19:00 Metoprolol Succinate (Er) 25 Mg Tab.Er.24h PO HS@1900 [facility] Montelukast Sodium 10 mg 08/31/23 07:00 08/31/23 07:21 Montelukast 10 Mg Tab PO 10 mg DAILY@0700 [facility] Administration Naloxone HCl 0.2 mg 08/30/23 19:11 Naloxone 0.4 Mg/Ml 1 Ml Vial IV Q2M PRN Opioid Reversal Nitroglycerin 0.4 mg 08/30/23 19:16 Nitroglycerin Sl Tabs 0.4 Mg Tab SUBLINGUAL Q5M PRN Chest Pain Pantoprazole Sodium 40 mg 08/31/23 07:00 08/31/23 07:21 Pantoprazole 40 Mg Tablet PO 40 mg AC-BRKFST@07 [facility] Administration Polyethylene Glycol 17 gm 08/31/23 07:00 08/31/23 07:22 Polyethylene Glycol 3350 17 Gm Powd.Pack PO 17 gm DAILY@07 [facility] Administration Senna 8.6 mg 08/31/23 07:00 08/31/23 07:21 Sennosides 8.6 Mg Tab PO 8.6 mg BID@0700,1900 [facility] Administration Spironolactone 12.5 mg 08/31/23 07:00 08/31/23 07:22 Spironolactone 25 Mg Tab PO 12.5 mg DAILY@07 [facility] Administration Intake and Output 08/30/23 08/31/23 08/31/23 22:59 06:59 14:59 Other: Weight 90.718 kg 08/31/23 09:19 08/31/23 09:19
--- NOTE | 2023-08-31 18:48 | P.HPIM ---
History of Present Illness H&P Date: 08/31/23 Chief Complaint: syncope HISTORY OF PRESENT ILLNESS: This is an 88-year-old male with a previous medical history significant for hypertension and hypertensive cardiovascular disease, hyperlipidemia, paroxysmal atrial fibrillation, coronary artery disease with ischemic cardiomyopathy, enlarged prostate, history of AICD, patient was in my office for his yearly physical examination was brought by his son and his [id number] and he was sitting in the wheelchair while we were examining the patient patient passed out completely, immediately his place and Trendelenburg position and the patient regained consciousness within a few seconds, he was more awake and alert, EMS was called, the patient was brought into the emergency department at [facility], his vital signs were okay, blood pressure was a bit on the lower side, his blood pressure was 102/62, his heart rate was around 55, oxygenation was around 88% patient was a bit clammy, patient was sent to the ER, had a chest x-ray did not show evidence of acute abnormalities except for cardiomegaly and pulmonary vascular congestion, CT scan of the brain did not show evidence of acute abnormalities, but because of the presentation he was admitted to the hospital for evaluation by cardiology and for his defibrillator to be interrogated, his son at the bedside was aware that the patient was no c ode at this point in time and the paper was signed in my office and witnessed by the son and the [id number]. REVIEW OF SYSTEMS: Constitutional: No documented fever, no chills, no night sweats. No weight change. Positive for weakness, fatigue no lethargy. No daytime sleepiness. HEENT: Positive for headache. Positive blurred vision or double vision, no loss of vision. Positive for loss of Hearing, no ringing in the ears, no dizziness. Positive for nasal crust or congestion. No epistaxis. No sore throat. Lungs: No shortness of breath, no cough, no sputum production. No wheezing. Reports dyspnea with activity. Cardiovascular: No chest pain, no lower extremity edema. No palpitations. No paroxysmal nocturnal dyspnea. No orthopnea. No lightheadedness or dizziness. positive for syncope Abdominal: Reports abdominal pain. No nausea, vomiting. No diarrhea. positive for constipation. No bloody or tarry stools reports loss of appetite. Genitourinary: No dysuria, increased frequency, urgency. No urinary retention. Positive for hematuria. Musculoskeletal: No myalgias. Positive for muscle weakness, no gait dysfunction, no frequent falls. No back pain. No neck pain. Integumentary: no skin rash Neurologic: No aphasia. No facial droop. No change in mentation. No head injury. No headache. No paralysis. No paresthesia. Psychiatric: No depression. No anxiety. No mood swings. Endocrine: No abnormal blood sugars. No weight change. PAST MEDICAL HISTORY: hypertension and hypertensive cardiovascular disease. Hyperlipidemia. Paroxysmal atrial fibrillation. Ischemic cardiopathy. Enlarged prostate with lower urinary tract symptoms. ALLERGIC rhinitis Coronary artery disease. Hard of hearing. Gait dysfunction. Amiodarone-induced thyrotoxicosis. PAST SURGICAL HISTORY: arthroscopic knee surgery. Appendectomy. Tonsillectomy and adenoidectomy. Cholecystectomy. Carpal tunnel surgery. Bilateral cataract surgery. Left heart catheterization with PCI. AICD 2013. Bilateral total knee arthroplasties. Partial thyroidectomy. SOCIAL HISTORY: patient uses followed by a pack every day from [id number], he currently lives in senior citizen apartment, he denies any alcohol ingestion, no drug use or abuse, uses a walker for ambulation FAMILY HISTORY: father at age of 90 after carotid endarterectomy, also had a history of CAD CVA and diabetes along with cancer mother at age of 89 from unknown reason patient had one brother who from pancreatic cancer with metastatic disease to the bone patient has one son who is alive and well and one daughter with adopted granddaughter. PHYSICAL EXAMINATION: General: this is an 88-year-old male who is sitting up in bed in no distress HEENT: Head is atraumatic, normocephalic, pupils were equal round reactive to light and recommendation, extraocular muscle movement were intact, sclera nonicteric, conjunctivae were pale, mucous membranes of the mouth are somewhat dry. Neck: Supple, no JVP, normal carotid upstroke bilaterally, no lymphadenopathy. Chest: Decreased breath sounds at the bases, few rhonchi, no extremity wheezes, no chest wall tenderness, no intercostal retractions. Heart: First heart sound is normal, second heart sound is normal there is systolic ejection murmur 2/6 located in the left sternal border, there is AICD in the left upper precordium. Abdomen: Soft, nontender, nondistended, positive bowel sounds. there is no hepatosplenomegaly. Extremities: There is no edema no calf tenderness DP +2 bilaterally. Neurologic examination: Patient is awake alert and oriented X 3, cranial nerves II-12 appear grossly intact, muscle power were 4 out of 5 in upper extremities and 4 out of 5 in bilateral lower extremities, deep tendon reflexes normal bilaterally. ASSESSMENT AND PLAN: 1. Syncope rule out cardiac arrhythmias patient pacemaker/defibrillator was int errogated, still pending, monitor the patient very closely over the next 24 hours, family has approached me to see if patient is a candidate for hospice/palliative care at this point, we will consult hospice for informational purposes to try to give the patient and the family more information about hospice at this point. Patient is no CODE STATUS. 2. Recent urinary tract infection due to Albright catheterization. Has resolved. Patient just finished his oral antibiotic in the form of cefuroxime. 3. Hypertension and hypertensive cardiovascular disease. Continue patient on lisinopril 20 mg orally twice every day, increase Toprol XL 75 mg orally once every day monitor the patient blood pressure very closely. 4. Hyperlipidemia. Continue patient on atorvastatin 80 mg orally once every da y. 5. CAD post-PCI with ischemic cardiomyopathy. Continue aspirin 81 mg once every day, metoprolol orally once every day, atorvastatin 80 mg orally once every day. 6. ALLERGIC rhinitis. Continue patient on loratadine 10 mg orally once every day. 7. GERD. Continue omeprazole 40 mg orally once every day as well as famotidine 40 mg at bedtime. 8. Constipation. Start the patient on lactulose 20 g orally twice every day, continue Senokot-s 2 tablet orally bedtime may use MiraLAX 17 g in 8 ounces water as needed. 9. Enlarged prostate. Continue tamsulosin 0.4 g orally once every day. 10. Paroxysmal atrial fibrillation. Continue patient on Eliquis 5 mg orally twice every day, continue patient on metoprolol ER 75 mg at bedtime. 11. 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 Continue patient on amiodarone 100 mg orally once every day continue metoprolol ER 75 mg at bedtime, patient is following with cardiology on a regular basis. 12. DVT prophylaxis. Continue Eliquis 5 mg orally twice every day. 13. GI prophylaxis. Continue PPI. 14. Observation. 15. No code. Past Medical History Past Medical History: Coronary Artery Disease (CAD), Heart Failure, Eye Disorder, GERD/Reflux, GI Bleed, Hyperlipidemia, Hypertension, Myocardial Infarction (PR), Osteoarthritis (OA), Prostate Disorder, Thyroid Disorder Additional Past Medical History / Comment(s): cardiomyopathy, DENGENERATIVE ARTHRITIS, MACULAR DEGENERATION AND CATARACTS,GI BLEED 2011, fall 11-24-16/facial inj/bruing/broken front teeth,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 , LEGALLY BLIND, FELL AND CUT HIS LT ARM-NO STITCHES NEEDED BUT PUT ON ANTIBIOTICS PREVENTATIVE-STILL HAS BRUISING.-NOTIFIED [place] IN PAIN CLINIC-SEE NN PLEASE Last Myocardial Infarction Date:: History of Any Multi-Drug Resistant Organisms: None Reported Past Surgical History: Adenoidectomy, AICD, Appendectomy, Cholecystectomy, Heart Catheterization, Heart Catheterization With Stent, Joint Replacement, Orthopedic Surgery, Pacemaker, Tonsillectomy Additional Past Surgical History / Comment(s): AICD, Defrillation Testing 04/02/14, TOTAL LT/RT KNEE ARTHROPLASTY, bilateral CATARACTS, bilateral carpal tunnel releases, PARTIAL THYROIDECTOMY due to nodules, trigger fingers,heart stents x3, PAIN CLINIC PROCEDURES Past Anesthesia/Blood Transfusion Reactions: No Reported Reaction Additional Past Anesthesia/Blood Transfusion Reaction / Comment(s): wakes up during surgery,no hx blood transfusion Date of Last Stent Placement:: Type of Cardiac Device: Biventricular Pacemaker, AICD Device Placement Date:: 12-04-13 [employer] Past Psychological History: No Psychological Hx Reported Smoking Status: Former smoker Past Alcohol Use History: None Reported Past Drug Use History: None Reported - Past Family History Son(s) Family Medical History: No Reported History Father Family Medical History: Cancer, Coronary Artery Disease (CAD), CVA/TIA, Diabetes Mellitus Additional Family Medical History / Comment(s): CAROTID ARTERY BLOCKAGE.SX IN 1988 Mother Family Medical History: Unable to Obtain Additional Family Medical History / Comment(s): AT AGE 89- UNK HX Daughter(s) Family Medical History: Cancer (Patient has 2 adopted daughters and he has been under a lot of stress with his adopted daughter whom her left taking her cars with him.) BROTHER Family Medical History: Cancer Additional Family Medical History / Comment(s): BONE, PANCREATIC Medications and Allergies Home Medications Medication Instructions Recorded Confirmed Type Spironolactone [Aldactone] 12.5 mg PO DAILY@69912/03/16 08/30/23 History Aspirin [Adult Low Dose Aspirin EC] 81 mg PO DAILY@69911/16/17 08/30/23 History Atorvastatin [Lipitor] 80 mg PO HS@19003/03/21 08/30/23 History Nitroglycerin 0.4 mg SL Q5M PRN 09/28/22 08/30/23 History Metoprolol Succinate (ER) [Toprol 75 mg PO HS@189911/13/22 08/30/23 History XL] Acetaminophen Tab [Tylenol] 650 mg PO Q6H PRN 05/22/23 08/30/23 History Baclofen [Lioresal] 5 mg PO DAILY PRN tab 05/26/23 08/30/23 Rx Lactulose [Cephulac] 20 gm PO TID PRN ml 05/26/23 08/30/23 Rx Amiodarone [Cordarone] 100 mg PO DAILY@69908/10/23 08/30/23 History Apixaban [Eliquis] 5 mg PO BID@07,189908/10/23 08/30/23 History Arthritis Pain Relief Roll-On 1 applic TOPICAL DAILY PRN 08/10/23 08/30/23 History Cbdigest 1 cap PO HS@189908/10/23 08/30/23 History Fluticasone Nasal [place] [Flonase 2 spray EA NOSTRIL DAILY@189908/10/23 08/30/23 History Nasal [place]] Furosemide [Lasix] 20 mg PO DAILY@69908/10/23 08/30/23 History HYDROcodone/APAP 5-325MG [[place] 1 tab PO BID PRN 08/10/23 08/30/23 History 5-325] Levocetirizine Dihydrochloride 5 mg PO HS@189908/10/23 08/30/23 History [Xyzal] Montelukast Sodium 10 mg PO DAILY@69908/10/23 08/30/23 History Omeprazole 40 mg PO AC-BRKFST@69908/10/23 08/30/23 History Sennosides [Senokot] 8.6 mg PO DAILY@0708/10/23 08/30/23 History lisinopriL [Zestril] 20 mg PO DAILY@69908/10/23 08/30/23 History polyethylene glycoL 3350 [Miralax] 17 gm PO DAILY@69908/10/23 08/30/23 History Tums Chewy Bites 750mg 1 dose PO DIRECTED PRN 08/30/23 08/30/23 History Allergies Allergy/AdvReac Type Severity Reaction Status Date / Time amlodipine besylate Allergy Rash/Hives Verified 08/30/23 19:27 [[address] [facility]] isosorbide [From [facility]] Allergy Unknown Verified 08/30/23 19:27 Latex, Natural Rubber Allergy Rash/Hives Verified 08/30/23 19:27 Physical Exam Vitals: Vital Signs Pulse Resp BP Pulse Ox 08/31/23 17:31 61 20 149/75 96 08/31/23 14:12 60 14 153/79 99 08/31/23 12:38 57 L 16 131/64 96 08/31/23 06:56 58 L 16 127/67 98 08/31/23 06:00 56 L 16 134/72 98 08/31/23 04:00 56 L 14 125/61 99 08/31/23 03:00 57 L 16 125/61 98 08/31/23 02:00 58 L 16 95/61 98 08/31/23 00:00 61 16 92/54 97 08/30/23 22:00 61 18 145/70 98 08/30/23 20:00 61 20 100 Results CBC & Chem 7: 08/31/23 09:19 08/31/23 09:19 Labs: Abnormal Lab Results - Last 24 Hours (Table) 08/31/23 08/31/23 Range/Units 09:19 09:19 RBC 3.62 L (4.30-5.90) m/uL Hgb 11.7 L (13.0-17.5) gm/dL Hct 36.6 L (39.0-53.0) % MCV 100.9 H (80.0-100.0) fL Sodium 131 L (137-145) mmol/L BUN 28 H (9-20) mg/dL Glucose 112 H (74-99) mg/dL Total Protein 6.2 L (6.3-8.2) g/dL Albumin 3.0 L (3.5-5.0) g/dL
[2023-08-31] MEDS: LORATADINE 10 MG TAB PO SCH (18:57)
[2023-08-31] MEDS: ATORVASTATIN 80 MG TAB PO SCH (18:58)
[2023-08-31] MEDS: METOPROLOL SUCCINATE (ER) 25 MG TAB.ER.24H PO SCH (18:58)
[2023-08-31] MEDS: FLUTICASONE NASAL 50MCG/SPRAY 16GM BTL EA NOSTRIL SCH (18:59)
[2023-08-31] MEDS ORDERED: [UNRECOGNIZED DRUG - OTHER] PO SCH (19:00)
[2023-09-01 11:44] VITALS: BMI 30.4
--- NOTE | 2023-09-01 12:19 | P.PN ---
Subjective HISTORY OF PRESENT ILLNESS: This is a 88-year-old male with a past medical history significant for coronary artery disease with previous stenting, ischemic cardiomyopathy, AICD implantation, hypertension, hyperlipidemia, Afib, and congestive heart failure. Patient follows in the office with Dr. Kearns. We have been asked to see the patient in consultation for syncopal episode. patient was at primary care physician's office and had a number of tests including an EKG and had been waiting for approximately an hour and then while he was sitting and having his feet examined he had a syncopal episode. Patient denies any significant symptoms prior to this. He has not been eating much however blood sugar level was normal and reportedly blood pressure in the 90s over 50s. Currently feels back to his normal self. Unfortunately has been having slow decline over the last few months and has had a number of hospitalizations. He is now an adult foster care. He is unsteady on his feet and weak in general. He did have recent hospitalization and May where he was found to have new onset ventricular tachycardia as well as A. fib and started on amiodarone. Unfortunately the amiodarone does make him nauseous and he therefore was decreased down to 100 mg daily. additionally heart catheterization was performed with no intervention performed. He still has been nauseous and has been losing weight. He also has had bladder issues with some bladder infections and concern of possible bladder cancer. 09/01/2023 Patient examined this morning at the bedside. Patient states he is feeling unwell this morning. He states he has diffuse pain which he states he thinks is due to his spinal stenosis. He also reports feeling weak this morning. Pacemaker was interrogated with no events noted. Patient currently denies chest pain or pressure. He denies shortness of breath. Vital signs are stable. PHYSICAL EXAM: VITAL SIGNS: Reviewed. GENERAL: Well-developed in no acute distress. NECK: Supple. No JVD or thyromegaly LUNGS: Respirations even and unlabored. Lungs essentially clear to auscultation bilaterally. HEART: Regular rate and rhythm. S1 and S2 heard. EXTREMITIES: Normal range of motion. No clubbing or cyanosis. Peripheral pulses intact. No lower extremity edema ASSESSMENT: Syncope while seated Paroxysmal atrial fibrillation Ventricular tachycardia, status post AICD discharge 06/08 Coronary artery disease with previous stenting Ischemic cardiomyopathy, EF 25% History of ICD implantation Hypertension Hyperlipidemia Chronic congestive heart failure with reduced EF, currently euvolemic Hyponatremia Failure to thrive PLAN: Obtain orthostatic blood pressures Continue telemetry monitoring Hospice has been consulted. Await consultation Patient is currently stable from a cardiac perspective Further recommendations pending patient course Nurse practitioner note has been reviewed by physician. Signing provider agrees with the documented findings, assessment, and plan of care documented by SALES AND BUSINESS DEVELOPMENT MANAGER as a scribe. Objective - Vital Signs Vital signs: Vital Signs Temp 97.7 F 09/01/23 07:00 Pulse 62 09/01/23 07:00 Resp 21 09/01/23 07:00 BP 116/70 09/01/23 07:00 Pulse Ox 95 09/01/23 07:00 FiO2 Intake & Output 08/31/23 09/01/23 09/01/23 18:59 06:59 18:59 Intake Total 240 57 Output Total 800 Balance -560 57 Weight 90.718 kg 90.718 kg Intake: Oral 240 57 Output: Urine 800 Other: Voiding Method Urinal - Labs CBC & Chem 7: 08/31/23 09:19 08/31/23 09:19
--- NOTE | 2023-09-01 13:41 | P.DS ---
Providers Date of admission: 08/30/23 19:12 Expected date of discharge: 09/01/23 Attending physician: Oskar Rowland Consults: 08/30/23 19:11 Consult Physician Routine Consulting Provider: Benji Kearns Consult Reason/Comments: syncope Do you want consulting provider notified?: Yes Primary care physician: Oskar Rowland Hospital Course: HISTORY OF PRESENT ILLNESS: This is an 88-year-old male with a previous medical history significant for hypertension and hypertensive cardiovascular disease, hyperlipidemia, paroxysmal atrial fibrillation, coronary artery disease with ischemic cardiomyopathy, enlarged prostate, history of AICD, patient was in my office for his yearly physical examination was brought by his son and his [id number] and he was sitting in the wheelchair while we were examining the patient patient passed out completely, immediately his place and Trendelenburg position and the patient regained consciousness within a few seconds, he was more awake and alert, EMS was called, the patient was brought into the emergency department at [facility], his vital signs were okay, blood pressure was a bit on the lower side, his blood pressure was 102/62, his heart rate was around 55, oxygenation was around 88% patient was a bit clammy, patient was sent to the ER, had a chest x-ray did not show evidence of acute abnormalities except for cardiomegaly and pulmonary vascular congestion, CT scan of the brain did not show evidence of acute abnormalities, but because of the presentation he was admitted to the hospital for evaluation by cardiology and for his defibrillator to be interrogated, his son at the bedside was aware that the patient was no code at this point in time and the paper was signed in my office and witnessed by the son and the [id number]. 08/31: Patient sitting up in bed he appears to be somewhat nauseated, he denies any chest pain, or any shortness of breath, his oxygenation drops down when he stands up and or he does any activity, will continue with oxygen at 2 L nasal cannula, via nasal cannula, with humidified oxygen, patient's family have arranged for hospice at his [facility] that he is living with, I will transfer the patient to his AFC today, with hospice care, I will continue to be the medical care provider for the patient and I will be more than happy to sign his orders. We will discontinue amiodarone at this time, we will adjust his medication due to his hypotension and we will follow-up with the patient very closely. Discharge diagnoses: 1. Syncope rule out cardiac arrhythmias patient pacemaker/defibrillator was interrogated. 2. Recent urinary tract infection due to Albright catheterization. 3. Hypertension and hypertensive cardiovascular disease. 4. Hyperlipidemia. 5. CAD post-PCI with ischemic cardiomyopathy. 6. ALLERGIC rhinitis. 7. GERD. 8. Constipation. 9. Enlarged prostate. 10. Paroxysmal atrial fibrillation. 11. 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 12. Hyponatremia. 13. Good candidate for hospice care. Patient Condition at Discharge: Serious Plan - Discharge Summary Discharge Rx Participant: No New Discharge Prescriptions: No Action Spironolactone [Aldactone] 12.5 mg PO DAILY@0700 Aspirin [Adult Low Dose Aspirin EC] 81 mg PO DAILY@0700 Metoprolol Succinate (ER) [Toprol XL] 75 mg PO HS@1900 Acetaminophen Tab [Tylenol] 650 mg PO Q6H PRN PRN Reason: Mild Pain (Scale 1 To 3) Baclofen [Lioresal] 5 mg PO DAILY PRN tab PRN Reason: Spasms Arthritis Pain Relief Roll-On 1 applic TOPICAL DAILY PRN PRN Reason: Pain polyethylene glycoL 3350 [Miralax] 17 gm PO DAILY@0700 Sennosides [Senokot] 8.6 mg PO DAILY@0700 lisinopriL [Zestril] 20 mg PO DAILY@0700 Furosemide [Lasix] 20 mg PO DAILY@0700 Cbdigest 1 cap PO HS@1900 Amiodarone [Cordarone] 100 mg PO DAILY@0700 Atorvastatin [Lipitor] 80 mg PO HS@1900 Nitroglycerin 0.4 mg SL Q5M PRN PRN Reason: Chest Pain Lactulose [Cephulac] 20 gm PO TID PRN ml PRN Reason: Constipation HYDROcodone/APAP 5-325MG [[place] 5-325] 1 tab PO BID PRN PRN Reason: Pain Omeprazole 40 mg PO AC-BRKFST@0700 Montelukast Sodium 10 mg PO DAILY@0700 Levocetirizine Dihydrochloride [Xyzal] 5 mg PO HS@1900 Fluticasone Nasal [place] [Flonase Nasal [place]] 2 spray EA NOSTRIL DAILY@1900 Apixaban [Eliquis] 5 mg PO BID@0700,1900 Tums Chewy Bites 750mg 1 dose PO DIRECTED PRN PRN Reason: ACID REFLUX Discharge Medication List Spironolactone [Aldactone] 12.5 mg PO DAILY@69912/03/16 [History] Aspirin [Adult Low Dose Aspirin EC] 81 mg PO DAILY@0711/16/17 [History] Atorvastatin [Lipitor] 80 mg PO HS@189903/03/21 [History] Nitroglycerin 0.4 mg SL Q5M PRN 09/28/22 [History] Metoprolol Succinate (ER) [Toprol XL] 75 mg PO HS@189911/13/22 [History] Acetaminophen Tab [Tylenol] 650 mg PO Q6H PRN 05/22/23 [History] Baclofen [Lioresal] 5 mg PO DAILY PRN tab 05/26/23 [Rx] Lactulose [Cephulac] 20 gm PO TID PRN ml 05/26/23 [Rx] Amiodarone [Cordarone] 100 mg PO DAILY@69908/10/23 [History] Apixaban [Eliquis] 5 mg PO BID@07,189908/10/23 [History] Arthritis Pain Relief Roll-On 1 applic TOPICAL DAILY PRN 08/10/23 [History] Cbdigest 1 cap PO HS@189908/10/23 [History] Fluticasone Nasal [place] [Flonase Nasal [place]] 2 spray EA NOSTRIL DAILY@189908/10/23 [History] Furosemide [Lasix] 20 mg PO DAILY@69908/10/23 [History] HYDROcodone/APAP 5-325MG [[place] 5-325] 1 tab PO BID PRN 08/10/23 [History] Levocetirizine Dihydrochloride [Xyzal] 5 mg PO HS@189908/10/23 [History] Montelukast Sodium 10 mg PO DAILY@69908/10/23 [History] Omeprazole 40 mg PO AC-BRKFST@69908/10/23 [History] Sennosides [Senokot] 8.6 mg PO DAILY@69908/10/23 [History] lisinopriL [Zestril] 20 mg PO DAILY@69908/10/23 [History] polyethylene glycoL 3350 [Miralax] 17 gm PO DAILY@0700 08/10/23 [History] Tums Chewy Bites 750mg 1 dose PO DIRECTED PRN 08/30/23 [History] Follow up Appointment(s)/Referral(s): Oskar Rowland MD [Primary Care Provider] - 1-2 days
[2023-09-01 15:28] VITALS: BP 118/71; RESP 14; TEMP 98
[2023-09-01 18:33] VITALS: PULSE 60
[2023-09-02] MEDS ORDERED: lisinopriL 10 MG TAB PO SCH (07:00)
== END 2023-09-01 18:46 | disposition hospice, home (50) ==
LOC: EC 17:01 → 6NMEDSUR 19:12
PROVIDERS: ADMIT Internal Medicine; ATTEND Internal Medicine
DX: R55 Syncope and collapse (principal); I25.10 Atherosclerotic heart disease of native coronary artery without angina pectoris; I11.0 Hypertensive heart disease with heart failure; I50.22 Chronic systolic (congestive) heart failure; I47.20 Ventricular tachycardia, unspecified; K21.9 Gastro-esophageal reflux disease without esophagitis; E78.5 Hyperlipidemia, unspecified; E89.0 Postprocedural hypothyroidism; I25.5 Ischemic cardiomyopathy; I48.0 Paroxysmal atrial fibrillation; E87.1 Hypo-osmolality and hyponatremia; R62.7 Adult failure to thrive; N40.1 Benign prostatic hyperplasia with lower urinary tract symptoms; J30.9 Allergic rhinitis, unspecified; R26.9 Unspecified abnormalities of gait and mobility; H91.90 Unspecified hearing loss, unspecified ear; E05.80 Other thyrotoxicosis without thyrotoxic crisis or storm; K59.00 Constipation, unspecified; I25.2 Old myocardial infarction; Z87.891 Personal history of nicotine dependence; Z95.5 Presence of coronary angioplasty implant and graft; Z95.810 Presence of automatic (implantable) cardiac defibrillator; Z79.82 Long term (current) use of aspirin; Z79.899 Other long term (current) drug therapy; Z79.01 Long term (current) use of anticoagulants; Z79.51 Long term (current) use of inhaled steroids; Z91.040 Latex allergy status
CPT/HCPCS: 96360; 96361 ×2; 99285; 36415; 93005; 85379; 80053 ×2; 83735 ×2; 84484 ×2; 85025 ×2; 85610; 85730; 71046; 70450; G0378 ×3